=== PATIENT | female | born 1960 | race Caucasian/White ===

== ENCOUNTER 2018-01-11 21:42 | Inpatient (IN) | payer MEDICARE, MEDICAID, SELFPAY ==
[2018-01-11 21:43] VITALS: BP 136/85; PULSE 84; RESP 18; TEMP 37.1; O2SAT 97; BMI 34.3
--- NOTE | 2018-01-11 21:57 | CT_ITS ---
STUDY: CT ABDOMEN AND PELVIS WITH CONTRAST REASON FOR EXAM: Female, 57 years old. Left lower quadrant pain x2 months. History of diverticulitis RADIATION DOSAGE (If Supplied By Facility): CTDIvol = ( 15.22 ) mGy, DLP = ( 1014.83 ) mGycm TECHNIQUE: Transaxial images were obtained from the dome of the diaphragm to the symphysis pubis without oral contrast. 100 ml of Isovue 300 contrast was administered. Sagittal and coronal images were reconstructed. Individualized dose optimization techniques were used for this CT. COMPARISON: None. FINDINGS: The visualized lung bases are unremarkable. The visualized portions of the heart are within normal limits. Normal liver. Normal gallbladder and extrahepatic biliary system. Normal spleen. Normal pancreas. Normal bilateral adrenal glands. Normal right kidney. Normal left kidney. Normal visualized stomach. Normal small intestine. There is diverticulosis, with thickening of the colon wall, and pericolonic inflammation changes consistent with acute diverticulitis. The appendix is visualized and appears normal. Normal abdominal aorta. Normal inferior vena cava. Normal retroperitoneum. Normal urinary bladder. Normal uterus. There is a small umbilical hernia containing fat. Normal osseous structures. CT/Abdomen/Pelvis W IV Cont ONLY IMPRESSION: Acute sigmoid diverticulitis. No evidence of perforation or abscess. Electronically Signed: Arben Larios MD at 23:38 EST , Service support ,
--- NOTE | 2018-01-11 22:13 | ED.VISSUMM ---
- ER Visit Summary Date of Service: 01/11/18 Chief Complaint: Abdominal pain, bloating History of Present Illness: The patient is a 57 F with history of recurrent diverticulitis presents with abdominal pain and bloating. The patient states that she has had diverticulitis for about the past 2 months. She was initially seen here 2 weeks into November. She had a CT which showed uncomplicated sigmoid diverticulitis. The patient was placed on Cipro and Flagyl. She states she cannot tolerate the medication because of side effects of nausea. She followed with her primary care and was placed on Augmentin. She states she finished all of that, but she still had persistent pain. She denies any fevers or chills. She denies any other systemic symptoms. She just states that she has felt weak and has had persistent bloating and pain. She denies any history of prior abdominal surgery. She has had no blood with bowel movements. Physical Examination: Vital signs reviewed General: Well-nourished, well-developed Head: Normocephalic, atraumatic Eyes: Pupils equal and reactive, extraocular muscles intact Neck, supple, no lymphadenopathy Heart: Regular rate and rhythm Respiratory: No distress, clear bilaterally Abdomen: Soft, only tender in the left lower quadrant without rebound or guarding, nondistended, no peritoneal signs Back: Nontender Extremities: Nontender, no edema, no cords Skin: Normal color no rash Neuro: Alert and oriented, no focal or lateralizing deficits Test Results: Labs relatively unremarkable. CT shows recurrence of sigmoid diverticulitis. There is no abscess or perforation. Emergency Department Course and Treatment: Patient presents with recurrent pain. She has been through 2 courses of antibiotics and has had persistent symptoms. Her labs are unremarkable. The patient was hydrated, given analgesics, and antiemetics. She does have improvement of her symptoms. CT shows evidence of persistent diverticulitis. There is no abscess or perforation. As the patient has failed outpatient treatment, I do feel that she would benefit from admission. Patient was discussed with the hospitalist. She will be started on Zosyn. She will be admitted to [facility]. Treatment Plan: [] Disposition: Admission Impression: 1. Acute sigmoid diverticulitis with failed outpatient treatment This note was generated with [employer] software. It may contain incorrect words, spelling, and punctuation that were not noted in review of the chart prior to signing ED Disposition - Plan for ED Patient: Chief Complaint: Abd Pain Referrals: Kyle Monterroso MD [Primary Care Provider] -
[2018-01-11 22:16] LABS: Absolute Lymphocyte Count 3.06 X10^3/ul (0.83-4.51); Absolute Neutrophil Count 2.8 X10^3/uL (2.0-7.7); Basophil# 0.02 X10^3/uL; Basophil% 0.3 % (0-1); Eosinophils% 1.5 % (0-5); Hematocrit 37.9 % (37-47); Hemoglobin 12.3 g/dl (12.0-15.0); Lymphocyte # 3.06 X10^3/ul (4.0); Lymphocyte % 45.7 % (19-41); Mean Corp Hgb Conc 32.5 g/gl (32-36); Mean Corpuscular Hgb 29.1 pg (27.0-32.0); Mean Corpuscular Volume 89.6 fL (81-99); Mean Platelet Vol. 9.9 fl (6.2-12.0); Monocyte# 0.74 X10^3/uL; Monocyte% 11.1 % (0-10); Neutrophil # 2.76 X10^3/uL (2.7-7.7); Neutrophil % 41.3 % (47-70); Platelet Count 322 K/mm3 (150-450); RBC Distribution Width CV 13.6 % (11.6-14.6); RBC Distribution Width SD 44.5 fl (35.1-43.9); Red Blood Count 4.23 M/mm3 (4.2-5.4); White Blood Count 6.7 K/mm3 (4.4-11.0)
[2018-01-11] MEDS: 0.9% Normal Saline 1,000 ML 1000 ML IV (22:16)
[2018-01-11] MEDS: Ondansetron 4 MG/2 ML Vial IV (22:16)
[2018-01-11 22:18] LABS: POSITIVE COUNT NO; POSITIVE DIFFERENTIAL NO; POSITIVE MORPHOLOGY NO
[2018-01-11 22:31] LABS: AST(SGOT) 19 U/L (15-37); Alanine Aminotransfer ALT/SGPT 30 U/L (13-56); Albumin, Serum 3.7 g/dL (3.2-5.0); Alkaline Phosphatase 80 U/L (45-117); Anion Gap 9 (5-15); BUN 24 mg/dL (7-18); BUN/Creat Ratio 19.5 RATIO (10-20); Calcium,Total 9.1 mg/dL (8.5-10.1); Chloride 108 mmol/L (98-107); Creatinine, Serum 1.23 mg/dL (0.55-1.02); EST Glomerular Filtration Rate 47 mL/min (>60); Est Glom Filt Rate - Afr Amer 57 mL/min (>60); Estimated Creatinine Clearance 42.53 ml/min; Globulin 3.7 g/dL (2.2-4.2); Glucose 112 mg/dL (74-106); Potassium 3.6 mmol/L (3.5-5.1); Protein, Total 7.4 g/dL (6.4-8.2); Sodium Level 142 mmol/L (136-145)
[2018-01-11 22:32] VITALS: BP 131/76; PULSE 76; RESP 20; O2SAT 95
--- NOTE | 2018-01-11 23:47 | HP.PCM_ITS ---
Problem List (1) Diverticulitis Status: Acute (2) Hypothyroid Status: Acute (3) Depression Status: Acute (4) Lipidemia Status: Acute History of Present Illness Date of Admission: 01/11/18 Chief Complaint: Diverticulitis The patient is a 57 year old female w/ h/o diverticulitis, depression, hypothyroid and lipidemia admitted for diverticulitis. She had left lower quadrant abdominal pain x weeks to months. Pain started in October. She was evaluated in the ED and was given a 10 day course of cipro for diverticulitis. However pain still persisted. Her PCP gave her an additional 10 days of augmentin. Despite finishing both course of antibiotic, she still had persistent pain. The intensity and frequency of pain have increased during that time. Pain is sharp and constant. Pain would last for hours. Movement made it worse. Nothing made it better. She has no constipation or diarrhea. No nausea or vomiting. Past Medical History Allergies metronidazole [From Flagyl] Allergy (Verified 01/11/18 22:21) Nausea/Vom/Diarrhea esomeprazole [From Nexium] Adverse Reaction (Verified 01/11/18 22:21) Nausea oxybutynin [From Ditropan] Adverse Reaction (Verified 01/11/18 22:21) Nausea/Vom/Diarrhea oxycodone [From Percocet] Adverse Reaction (Verified 01/11/18 22:21) Nausea Home Medications: Ambulatory Orders Medication Instructions Recorded Aripiprazole [Abilify] 10 mg PO DAILY 10/01/16 Aspirin [Adult Low Dose Aspirin EC] 81 mg PO DAILY 10/01/16 Duloxetine Hcl [Cymbalta] 60 mg PO DAILY 10/01/16 Fenofibrate [Lofibra] 54 mg PO DAILY 10/01/16 Levothyroxine [Synthroid] 137 mcg PO DAILY 10/01/16 Rosuvastatin Calcium [Crestor] 40 mg PO QHS 10/01/16 Sumatriptan Succinate [Imitrex] 50 mg PO .X1 PRN 10/01/16 [place]-3 Fatty Acids [Fish Oil] 2,000 mg PO DAILY 11/21/16 BuPROPion [Wellbutrin] 150 mg PO DAILY 06/23/17 Benztropine Mesylate 1 mg PO BID 11/29/17 Pantoprazole Sodium [Protonix] 40 mg PO DAILY 11/29/17 Benztropine [Cogentin] 1 mg PO BID 01/11/18 Multivitamin/Iron/Folic Acid 1 each PO DAILY 01/11/18 [Centrum Adults Tablet] Ondansetron [Zofran Odt] 4 mg PO Q8H PRN PRN 01/11/18 Topiramate [Topamax] 25 mg PO BID 01/11/18 Smoking Status: Current every day smoker Alcohol: None Drugs: None - *Family History Maternal History Items: No pertinent history Review of Systems Constitutional: Denies: Chills, Fever, Weight Change HEENT: Denies: Head Aches, Sinus Congestion, Sinus Drainage Cardiovascular: Denies: Chest Pain, Palpitations Respiratory: Denies: Cough, Shortness of breath at rest, Sputum production Gastrointestinal: Reports: Abdominal Pain. Denies: Nausea, Vomiting Genitourinary: Denies: Dysuria Musculoskeletal: Denies: Joint Pain, Joint Tenderness Skin: Denies: Rash, Wounds Neurological: Denies: Numbness, Tingling, Focal weakness Psychiatric: Denies: Anxiety, Depression, Homicidal Ideations, Suicidal Ideations Hematologic/ Lymphatic: Denies: Easy Bruising, Easy Bleeding VTE Information - Inpt Only VTE Present on Admission: No VTE Mechan Device Prophylaxis: SCD's VTE Pharm Prophylaxis ordered?: Yes Patient Problems: Active and Suspected Problems Diverticulitis (Acute) Hypothyroid (Acute) Depression (Acute) Lipidemia (Acute) - Physical Exam General: Alert, Oriented x3, Cooperative HEENT: Atraumatic, PERRLA, EOMI, Normocephalic Neck: Supple, No JVD, Negative Carotid Bruits Lungs: Clear to auscultation, Normal air movement Cardiovascular: Regular rate, No murmurs Abdomen: Bowel Sounds Present, Soft, Non-Distended, Tender Extremities: No edema, Capillary Refill Less than 3 Seconds Skin: No rashes, No breakdown Musculoskeletal: No Tenderness to Palpation of Joints or Extremities Neurological: Cranial nerves II-XII grossly intact Psych/Mental Status: Normal Affect, Appropriate Vital Signs Temp Pulse Resp BP Pulse Ox 98.7 F 76 20 H 131/76 H 95 01/11/18 21:43 01/11/18 22:32 01/11/18 22:32 01/11/18 22:32 01/11/18 22:32 Oxygen Delivery Method Room Air Weight: 90.7 kg Body Mass Index (BMI) 34.3 Laboratory Tests Past 24 Hrs 01/11/18 01/11/18 22:10 22:10 WBC 6.7 RBC 4.23 Hgb 12.3 Hct 37.9 MCV 89.6 MCH 29.1 MCHC 32.5 RDW 13.6 RDW Differential 44.5 H Plt Count 322 MPV 9.9 Immature Gran % (Auto) 0.100 Neut % (Auto) 41.3 L Lymph % (Auto) 45.7 H [place] % (Auto) 11.1 H Eos % (Auto) 1.5 Baso % (Auto) 0.3 Absolute Neuts (auto) 2.8 Absolute Lymphs (auto) 3.06 Total Counted Not Reportable Sodium 142 Potassium 3.6 Chloride 108 H Carbon Dioxide 25.0 Anion Gap 9 BUN 24 H Creatinine 1.23 H Estim Creat Clear Calc 42.53 Est GFR (MDRD) Af Amer 57 L Est GFR (MDRD) Non-Af 47 L BUN/Creatinine Ratio 19.5 Glucose 112 H Calcium 9.1 Total Bilirubin 0.30 AST 19 ALT 30 Alkaline Phosphatase 80 Total Protein 7.4 Albumin 3.7 Globulin 3.7 Albumin/Globulin Ratio 1.0 Assessment/Plan Active and Suspected Problems Diverticulitis (Acute) Hypothyroid (Acute) Depression (Acute) Lipidemia (Acute) 57 year old female w/ h/o diverticulitis, depression, hypothyroid and lipidemia admitted for diverticulitis. 1) Diverticulitis: CT disclosed Acute sigmoid diverticulitis. No evidence of perforation or abscess. Will start zosyn given failed multiple outpt antibiotic. Monitor. 2) Depression: Resume home meds. No SI/HI. 3) Chronic issues: Hypothyroid / lipidemia: Resume home meds. 4) Prophylaxis: SCD / heparin.
[2018-01-12 01:14] LABS: Bacteria 0 SEEN /hpf (None Seen); Mucous, Urine 0 SEEN /hpf (<or=2+); Red Blood Cells-Urine 0 SEEN /hpf (0-5); Squamous Epithelial Cells - UA 0 SEEN /hpf (5-10); White Blood Cells 0 SEEN /hpf (0-5)
[2018-01-12 01:22] LABS: Color, Urine Yellow (Yellow); Glucose, Dipstick Normal (Normal); Ketone-Dipstick Negative (Negative); Leukocyte Esterase-Dipstick 25 /ul (Negative); Nitrite-Dipstick Negative (Negative); Occult Blood-Urine Negative /ul (Negative); Protein-Dipstick Negative (Negative); Urine Bilirubin Dipstick Negative (Negative); Urine Clarity Clear (Clear); Urine Urobilinogen Normal (Normal)
[2018-01-12 01:35] VITALS: BP 113/62; PULSE 87; RESP 18; O2SAT 97
[2018-01-12 02:33] VITALS: BMI 34.4
[2018-01-12 02:36] VITALS: BP 115/69; PULSE 72; RESP 18; TEMP 36.6; O2SAT 99
[2018-01-12 02:59] VITALS: BMI 34.4
[2018-01-12] MEDS: Ondansetron ODT 4 MG Tablet PO (03:09)
[2018-01-12] MEDS: Rizatriptan Benzoate 10 MG Tablet PO (03:25)
[2018-01-12] MEDS: Levothyroxine 137 MCG Tablet PO (05:54)
[2018-01-12] MEDS: Piperacil/Tazobactam 3.375 GM/50 ML ML IV ×3 (05:54→21:19)
[2018-01-12 06:23] LABS: Absolute Lymphocyte Count 2.13 X10^3/ul (0.83-4.51); Absolute Neutrophil Count 2.7 X10^3/uL (2.0-7.7); Basophil# 0.02 X10^3/uL; Basophil% 0.4 % (0-1); Eosinophil# 0.14 X10^3/uL; Eosinophils% 2.5 % (0-5); Hematocrit 39.7 % (37-47); Hemoglobin 12.8 g/dl (12.0-15.0); Lymphocyte # 2.13 X10^3/ul (4.0); Lymphocyte % 38.3 % (19-41); Mean Corp Hgb Conc 32.2 g/gl (32-36); Mean Corpuscular Hgb 29.3 pg (27.0-32.0); Mean Corpuscular Volume 90.8 fL (81-99); Mean Platelet Vol. 10.2 fl (6.2-12.0); Monocyte% 10.8 % (0-10); Neutrophil # 2.66 X10^3/uL (2.7-7.7); Neutrophil % 47.8 % (47-70); Platelet Count 318 K/mm3 (150-450); RBC Distribution Width CV 13.8 % (11.6-14.6); RBC Distribution Width SD 44.7 fl (35.1-43.9); Red Blood Count 4.37 M/mm3 (4.2-5.4); White Blood Count 5.6 K/mm3 (4.4-11.0)
[2018-01-12 06:29] LABS: POSITIVE COUNT NO; POSITIVE DIFFERENTIAL NO; POSITIVE MORPHOLOGY NO
[2018-01-12 06:34] LABS: Anion Gap 8 (5-15); BUN 19 mg/dL (7-18); BUN/Creat Ratio 17.9 RATIO (10-20); Calcium,Total 8.4 mg/dL (8.5-10.1); Chloride 107 mmol/L (98-107); Creatinine, Serum 1.06 mg/dL (0.55-1.02); EST Glomerular Filtration Rate 56 mL/min (>60); Est Glom Filt Rate - Afr Amer 68 mL/min (>60); Estimated Creatinine Clearance 49.35 ml/min; Glucose 112 mg/dL (74-106); Potassium 3.8 mmol/L (3.5-5.1); Sodium Level 141 mmol/L (136-145)
[2018-01-12 08:29] VITALS: BP 94/70; PULSE 73; RESP 16; TEMP 36.7; O2SAT 94
[2018-01-12] MEDS: Multivitamins,Ther W-Minerals Tablet 1 TABLET PO (08:47)
[2018-01-12] MEDS: ARIPiprazole 10 MG Tablet PO (08:47)
[2018-01-12] MEDS: Aspirin E.C. 81 MG Tablet PO (08:47)
[2018-01-12] MEDS: Benztropine 2 MG Tablet 1 MG PO ×2 (08:48→21:19)
[2018-01-12] MEDS: DULoxetine Hcl 60 MG Capsule PO (08:49)
[2018-01-12] MEDS: Omega-3 Acid Ethyl Esters 1 GM Capsule 2 GM PO (08:49)
[2018-01-12] MEDS: Pantoprazole Sodium 40 MG Tablet PO (08:50)
[2018-01-12] MEDS: Fenofibrate 48 MG Tablet PO (08:50)
--- NOTE | 2018-01-12 08:54 | PCM.PN.HOSP ---
Patient Problems: Active and Suspected Problems Diverticulitis (Acute) Hypothyroid (Acute) Depression (Acute) Lipidemia (Acute) Subjective: Patient is a 57-year-old lady with past medical history significant for recurrent diverticulitis presented with abdominal pain imaging studies demonstrated Acute sigmoid diverticulitis. No evidence of perforation or abscess. Objective: GENERAL: cooperative HEENT: Clear conjunctiva, NECK; supple, normal thyroid, CHEST: Clear to auscultation bilaterally, HEART: Regular S1 S2, no audible murmurs ABDOMEN: soft, LLQ tender, normoactive bowel sounds, RECTAL: deferred EXTREMITIES: No edema, no clubbing, no cyanosis. 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 SKIN: No Rash Vitals/I&O's: Vital Signs Temp Pulse Resp BP Pulse Ox 98.0 F 73 16 94/70 94 01/12/18 08:29 01/12/18 08:29 01/12/18 08:29 01/12/18 08:29 01/12/18 08:29 Oxygen Delivery Method Room Air Weight: 91.4 kg Body Mass Index (BMI) 34.4 Intake and Output for Last 24 Hours 01/10/18 01/11/18 01/12/18 23:59 23:59 23:59 Intake Total 200 / 200 Balance 200 / 200 Laboratory Results 01/12/18 01:06: Urine Color Yellow, Urine Clarity Clear, Urine pH 7.0, Ur Specific [place] 1.010, Urine Protein Negative, Urine Glucose (UA) Normal, Urine Ketones Negative, Urine Occult Blood Negative, Urine Nitrite Negative, Urine Bilirubin Negative, Urine Urobilinogen Normal, Ur Leukocyte Esterase 25 H, Urine RBC 0 SEEN, Urine WBC 0 SEEN, Ur Squamous Epith Cells 0 SEEN, Urine Bacteria 0 SEEN, Urine Mucus 0 SEEN 01/12/18 05:54: WBC 5.6, RBC 4.37, Hgb 12.8, Hct 39.7, MCV 90.8, MCH 29.3, MCHC 32.2, RDW 13.8, RDW Differential 44.7 H, Plt Count 318, MPV 10.2, Immature Gran % (Auto) 0.200, Neut % (Auto) 47.8, Lymph % (Auto) 38.3, [place] % (Auto) 10.8 H, Eos % (Auto) 2.5, Baso % (Auto) 0.4, Absolute Neuts (auto) 2.7, Absolute Lymphs (auto) 2.13, Total Counted Not Reportable 01/12/18 05:54: Sodium 141, Potassium 3.8, Chloride 107, Carbon Dioxide 26.0, Anion Gap 8, BUN 19 H, Creatinine 1.06 H, Estim Creat Clear Calc 49.35, Est GFR (MDRD) Af Amer 68, Est GFR (MDRD) Non-Af 56 L, BUN/Creatinine Ratio 17.9, Glucose 112 H, Calcium 8.4 L Current Medications Aripiprazole (Abilify) 10 mg PO DAILY [facility] Last Admin: 01/12/18 08:47 Dose: 10 mg [facility] Last Admin: 01/12/18 08:47 Dose: 81 mg Atorvastatin Calcium (Lipitor) 80 mg PO QHS [facility] Benztropine Mesylate (Cogentin) 1 mg PO BID [facility] Last Admin: 01/12/18 08:48 Dose: 1 mg Bupropion HCl (Wellbutrin Xl) 150 mg PO DAILY [facility] Last Admin: 01/12/18 08:50 Dose: 150 mg Duloxetine HCl (Cymbalta) 60 mg PO DAILY [facility] Last Admin: 01/12/18 08:49 Dose: 60 mg Fenofibrate (Tricor) 48 mg PO DAILY [facility] Last Admin: 01/12/18 08:50 Dose: 48 mg Heparin Sodium (Porcine) (Heparin Na) 5,000 unit SC Q8 [facility] Last Admin: 01/12/18 05:55 Dose: 5,000 u Piperacillin Sod/Tazobactam Sod (Zosyn) 3.375 gm in 50 mls @ 12.5 mls/hr IV Q8 [facility] Last Admin: 01/12/18 05:54 Dose: 12.5 mls/hr Levothyroxine Sodium (Synthroid) 137 mcg PO DAILY@0600 [facility] Last Admin: 01/12/18 05:54 Dose: 137 mcg Magnesium Hydroxide (Milk Of Magnesia) 30 ml PO DAILY PRN PRN PRN Reason: Constipation Multivitamins/Minerals (Multivitamin With Minerals) [facility] Last Admin: 01/12/18 08:47 Dose: 1 tablet [id number] Ethyl Esters (Lovaza) 2 gm PO DAILY [facility] Last Admin: 01/12/18 08:49 Dose: 2 gm Ondansetron HCl (Zofran Odt) 4 mg PO Q8H PRN PRN PRN Reason: NAUSEA Last Admin: 01/12/18 03:09 Dose: 4 mg Pantoprazole Sodium (Protonix) 40 mg PO DAILY [facility] Last Admin: 01/12/18 08:50 Dose: 40 mg Rizatriptan Benzoate (Maxalt) 10 mg PO .X1 PRN PRN Last Admin: 01/12/18 03:25 Dose: 10 mg Sodium Chloride () 5 - 30 ml IV UD PRN PRN Reason: SALINE FLUSH Topiramate (Topamax) 25 mg PO QHS [facility] Stop: 01/18/18 22:01 Topiramate (Topamax) 25 mg PO BID [facility] Assessment/Plan Active and Suspected Problems Diverticulitis (Acute) Hypothyroid (Acute) Depression (Acute) Lipidemia (Acute) Patient is a 57-year-old lady with past medical history significant for recurrent diverticulitis presented with abdominal pain imaging studies demonstrated Acute sigmoid diverticulitis. No evidence of perforation or abscess. 1. Acute diverticulitis admitted to regular nursing floor. Patient apparently did fail outpatient antibiotic therapy was started on Zosyn clear liquid which is been advanced as tolerated in addition to pain medications 2. Obesity with BMI of 34.4 weight loss advised 3. Depression patient is on Cymbalta as well as Wellbutrin did continue 4. Dyslipidemia-patient is on statin therapy, continued at home dose 5. Hypothyroidism-patient is on levothyroxine home dose continued 6. DVT prophylaxis SC heparin Clinical Impression(s) from Imaging Studies Abdomen/Pelvis CT 01/11/18 21:57 IMPRESSION: Acute sigmoid diverticulitis. No evidence of perforation or abscess. Electronically Signed: Arben Larios MD at 23:38 EST , Service support , Code Visit Inpatient E&M: [id number] [facility] Hosp L3
--- NOTE | 2018-01-12 11:05 | CASEMGMT ---
RN AYDEN Face to Face with patient for initial transition planning/care coordination assessment. RN CM introduced self and role at [facility]. Patient lying in bed, alert and oriented. Patient willing to participate in assessment and is able to answer all questions appropriately. Care providers, pharmacy, and demographics verified. See link attached. Patient wishes to discharge home, denies need for home health at this time. Patient states she has no further needs or concerns at this time. CM to follow for discharge planning needs that may arise. Disposition Plan: Patient to discharge home with family support and follow-up plans in place.
[2018-01-12 14:06] VITALS: BP 103/64; PULSE 67; RESP 16; TEMP 36.7; O2SAT 97
[2018-01-12 20:00] VITALS: BP 111/75; PULSE 61; RESP 16; TEMP 36.7; O2SAT 98
[2018-01-12] MEDS: Atorvastatin Calcium 80 MG Tablet PO (21:20)
[2018-01-12] MEDS: Topiramate 25 MG Tablet PO (21:21)
[2018-01-12] MEDS: 0.9% NaCl Peripheral Flush Adult/Peds IV (23:50)
[2018-01-13 02:00] VITALS: BP 111/57; PULSE 66; RESP 16; TEMP 36.4; O2SAT 96
[2018-01-13] MEDS: Piperacil/Tazobactam 3.375 GM/50 ML ML IV ×3 (05:24→21:34)
[2018-01-13] MEDS: Levothyroxine 137 MCG Tablet PO (05:25)
[2018-01-13 07:53] LABS: Anion Gap 8 (5-15); BUN 26 mg/dL (7-18); BUN/Creat Ratio 26.9 RATIO (10-20); Calcium,Total 8.6 mg/dL (8.5-10.1); Chloride 106 mmol/L (98-107); Creatinine, Serum 0.96 mg/dL (0.55-1.02); EST Glomerular Filtration Rate 63 mL/min (>60); Est Glom Filt Rate - Afr Amer 76 mL/min (>60); Estimated Creatinine Clearance 54.49 ml/min; Glucose 103 mg/dL (74-106); Magnesium 2.3 mg/dL (1.6-2.6); Potassium 3.9 mmol/L (3.5-5.1); Sodium Level 139 mmol/L (136-145)
[2018-01-13] MEDS: Fenofibrate 48 MG Tablet PO (08:19)
[2018-01-13] MEDS: Omega-3 Acid Ethyl Esters 1 GM Capsule 2 GM PO (08:19)
[2018-01-13] MEDS: Aspirin E.C. 81 MG Tablet PO (08:19)
[2018-01-13] MEDS: Pantoprazole Sodium 40 MG Tablet PO (08:19)
[2018-01-13] MEDS: DULoxetine Hcl 60 MG Capsule PO (08:20)
[2018-01-13] MEDS: ARIPiprazole 10 MG Tablet PO (08:20)
[2018-01-13] MEDS: Benztropine 2 MG Tablet 1 MG PO ×2 (08:20→21:35)
[2018-01-13] MEDS: Multivitamins,Ther W-Minerals Tablet 1 TABLET PO (08:20)
[2018-01-13 08:25] VITALS: BP 97/56; PULSE 72; RESP 18; TEMP 36.6; O2SAT 93
--- NOTE | 2018-01-13 10:16 | PCM.PN.HOSP ---
Patient Problems: Active and Suspected Problems Diverticulitis (Acute) Hypothyroid (Acute) Depression (Acute) Lipidemia (Acute) Subjective: Patient seen, complains of abdominal pain being more diffuse now. Also complains of some bloating discussed with patient scaling back her diet to clear liquids only. She had requested for the day prior. Also ordered KUB Objective: GENERAL: cooperative HEENT: Clear conjunctiva, NECK; supple, normal thyroid, CHEST: Clear to auscultation bilaterally, HEART: Regular S1 S2, no audible murmurs ABDOMEN: soft, LLQ tender, normoactive bowel sounds, RECTAL: deferred EXTREMITIES: No edema, no clubbing, no cyanosis. 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 SKIN: No Rash Vitals/I&O's: Vital Signs Temp Pulse Resp BP Pulse Ox 97.9 F 72 18 97/56 L 93 01/13/18 08:25 01/13/18 08:25 01/13/18 08:25 01/13/18 08:25 01/13/18 08:25 Oxygen Delivery Method Room Air Weight: 91.4 kg Body Mass Index (BMI) 34.4 Intake and Output for Last 24 Hours 01/11/18 01/12/18 01/13/18 23:59 23:59 23:59 Intake Total 200 / 200 1361 / 1361 Balance 200 / 200 1361 / 1361 Laboratory Results 01/13/18 06:43: Sodium 139, Potassium 3.9, Chloride 106, Carbon Dioxide 25.0, Anion Gap 8, BUN 26 H, Creatinine 0.96, Estim Creat Clear Calc 54.49, Est GFR (MDRD) Af Amer 76, Est GFR (MDRD) Non-Af 63, BUN/Creatinine Ratio 26.9 H, Glucose 103, Calcium 8.6, Magnesium 2.3 Current Medications Aripiprazole (Abilify) 10 mg PO DAILY [facility] Last Admin: 01/13/18 08:20 Dose: 10 mg [facility] Last Admin: 01/13/18 08:19 Dose: 81 mg Atorvastatin Calcium (Lipitor) 80 mg PO QHS [facility] Last Admin: 01/12/18 21:20 Dose: 80 mg Benztropine Mesylate (Cogentin) 1 mg PO BID [facility] Last Admin: 01/13/18 08:20 Dose: 1 mg Bupropion HCl (Wellbutrin Xl) 150 mg PO DAILY [facility] Last Admin: 01/13/18 08:19 Dose: 150 mg Duloxetine HCl (Cymbalta) 60 mg PO DAILY [facility] Last Admin: 01/13/18 08:20 Dose: 60 mg Fenofibrate (Tricor) 48 mg PO DAILY [facility] Last Admin: 01/13/18 08:19 Dose: 48 mg Heparin Sodium (Porcine) (Heparin Na) 5,000 unit SC Q8 [facility] Last Admin: 01/13/18 05:24 Dose: 1 ml Piperacillin Sod/Tazobactam Sod (Zosyn) 3.375 gm in 50 mls @ 12.5 mls/hr IV Q8 [facility] Last Admin: 01/13/18 05:24 Dose: 12.5 mls/hr Levothyroxine Sodium (Synthroid) 137 mcg PO DAILY@0600 [facility] Last Admin: 01/13/18 05:25 Dose: 137 mcg Magnesium Hydroxide (Milk Of Magnesia) 30 ml PO DAILY PRN PRN PRN Reason: Constipation Morphine Sulfate (Morphine) 2 mg IV Q2H PRN PRN PRN Reason: SEVERE PAIN (6-10/10) Last Admin: 01/13/18 08:25 Dose: 2 mg Multivitamins/Minerals (Multivitamin With Minerals) [facility] Last Admin: 01/13/18 08:20 Dose: 1 tablet [id number] Ethyl Esters (Lovaza) 2 gm PO DAILY [facility] Last Admin: 01/13/18 08:19 Dose: 2 gm Ondansetron HCl (Zofran Odt) 4 mg PO Q8H PRN PRN PRN Reason: NAUSEA Last Admin: 01/12/18 03:09 Dose: 4 mg Pantoprazole Sodium (Protonix) 40 mg PO DAILY [facility] Last Admin: 01/13/18 08:19 Dose: 40 mg Rizatriptan Benzoate (Maxalt) 10 mg PO .X1 PRN PRN Last Admin: 01/12/18 03:25 Dose: 10 mg Sodium Chloride () 5 - 30 ml IV UD PRN PRN Reason: SALINE FLUSH Last Admin: 01/12/18 23:50 Dose: 10 ml Topiramate (Topamax) 25 mg PO QHS [facility] Stop: 01/18/18 22:01 Last Admin: 01/12/18 21:21 Dose: 25 mg Topiramate (Topamax) 25 mg PO BID [facility] Assessment/Plan Active and Suspected Problems Diverticulitis (Acute) Hypothyroid (Acute) Depression (Acute) Lipidemia (Acute) Patient is a 57-year-old lady with past medical history significant for recurrent diverticulitis presented with abdominal pain imaging studies demonstrated Acute sigmoid diverticulitis. No evidence of perforation or abscess. 1. Acute diverticulitis admitted to regular nursing floor. Patient apparently did fail outpatient antibiotic therapy was started on Zosyn clear liquid which is been advanced as tolerated in addition to pain medications with patient having developed bloating on the morning of 01/13/2018 portable KUB was ordered for subsequent evaluation. Also did have discussion with patient regarding the recurrent nature of his symptoms and the need to undergo outpatient colonoscopy 4 weeks after resolution of his symptoms. 2. Obesity with BMI of 34.4 weight loss advised 3. Depression patient is on Cymbalta as well as Wellbutrin did continue 4. Dyslipidemia-patient is on statin therapy, continued at home dose 5. Hypothyroidism-patient is on levothyroxine home dose continued 6. DVT prophylaxis SC heparin Clinical Impression(s) from Imaging Studies Abdomen/Pelvis CT 01/11/18 21:57 IMPRESSION: Acute sigmoid diverticulitis. No evidence of perforation or abscess. Electronically Signed: Arben Larios MD at 23:38 EST , Service support , Code Visit Inpatient E&M: [id number] [facility] Hosp L3
--- NOTE | 2018-01-13 11:02 | RAD_ITS ---
STUDY: X-RAY - ABDOMEN/PELVIS REASON FOR EXAM: Female, 57 years old. Abdominal distention and pain. History of diverticulitis. TECHNIQUE: AP supine and upright views of the abdomen and pelvis. COMPARISON: Comparison is made with prior CT scan and abdomen dated January 11, 2018. FINDINGS: There is a moderate amount of colonic fecal material. There is no demonstrated free abdominal air. The visualized liver, spleen and kidneys are grossly normal in size and morphology. There are calcified phleboliths in the pelvis. Normal visualized osseous structures. RAD/Abd Decub and/or Erect(Portabl IMPRESSION: Moderate amount of fecal material is seen in the colon. Electronically Signed: Elijah Gill MD at 14:12 EST Tel [phone], Service support ,
[2018-01-13] MEDS: 0.9% NaCl Peripheral Flush Adult/Peds IV (14:01)
[2018-01-13] MEDS: Magnesium Hydroxide 30 ML UDC PO (14:02)
[2018-01-13 14:45] VITALS: BP 109/70; PULSE 69; RESP 18; TEMP 36.7; O2SAT 95
[2018-01-13] MEDS: Bisacodyl 10 MG Suppository RECTAL (18:12)
[2018-01-13 19:51] VITALS: BP 103/66; PULSE 67; RESP 18; TEMP 36.7; O2SAT 97
[2018-01-13 19:57] VITALS: PULSE 67; RESP 18; O2SAT 97
[2018-01-13] MEDS: Ondansetron ODT 4 MG Tablet PO (20:06)
[2018-01-13] MEDS: Atorvastatin Calcium 80 MG Tablet PO (21:35)
[2018-01-13] MEDS: Topiramate 25 MG Tablet PO (21:36)
[2018-01-14 02:15] VITALS: BP 101/58; PULSE 80; RESP 18; TEMP 36.6; O2SAT 96
[2018-01-14] MEDS: Magnesium Hydroxide 30 ML UDC PO (02:19)
[2018-01-14] MEDS: Piperacil/Tazobactam 3.375 GM/50 ML ML IV (06:22)
[2018-01-14] MEDS: Levothyroxine 137 MCG Tablet PO (06:22)
[2018-01-14 07:14] LABS: Anion Gap 7 (5-15); BUN 18 mg/dL (7-18); BUN/Creat Ratio 19.9 RATIO (10-20); Calcium,Total 8.9 mg/dL (8.5-10.1); Chloride 106 mmol/L (98-107); EST Glomerular Filtration Rate 68 mL/min (>60); Est Glom Filt Rate - Afr Amer 82 mL/min (>60); Estimated Creatinine Clearance 58.12 ml/min; Glucose 104 mg/dL (74-106); Potassium 3.9 mmol/L (3.5-5.1); Sodium Level 140 mmol/L (136-145)
[2018-01-14 08:02] VITALS: BP 102/65; PULSE 67; RESP 18; TEMP 36.6; O2SAT 98
[2018-01-14] MEDS: Aspirin E.C. 81 MG Tablet PO (08:17)
[2018-01-14] MEDS: ARIPiprazole 10 MG Tablet PO (08:17)
[2018-01-14] MEDS: Fenofibrate 48 MG Tablet PO (08:17)
[2018-01-14] MEDS: Multivitamins,Ther W-Minerals Tablet 1 TABLET PO (08:17)
[2018-01-14] MEDS: Pantoprazole Sodium 40 MG Tablet PO (08:17)
[2018-01-14] MEDS: Omega-3 Acid Ethyl Esters 1 GM Capsule 2 GM PO (08:17)
[2018-01-14] MEDS: DULoxetine Hcl 60 MG Capsule PO (08:17)
[2018-01-14] MEDS: Benztropine 2 MG Tablet 1 MG PO (08:18)
--- NOTE | 2018-01-14 09:34 | PCM.DC ---
- Discharge Diagnoses Current Active Problems: Current Active and Chronic Problems Diverticulitis (Acute) Hypothyroid (Acute) Depression (Acute) Lipidemia (Acute) You will use the following diet at home:: No restrictions Allergies/Adverse Reactions: Allergies metronidazole [From Flagyl] Allergy (Verified 01/11/18 22:21) Nausea/Vom/Diarrhea esomeprazole [From Nexium] Adverse Reaction (Verified 01/11/18 22:21) Nausea oxybutynin [From Ditropan] Adverse Reaction (Verified 01/11/18 22:21) Nausea/Vom/Diarrhea oxycodone [From Percocet] Adverse Reaction (Verified 01/11/18 22:21) Nausea Medications to take at Discharge Aripiprazole [Abilify] 10 mg PO DAILY 10/01/16 Aspirin [Adult Low Dose Aspirin EC] 81 mg PO DAILY 10/01/16 Duloxetine Hcl [Cymbalta] 60 mg PO DAILY 10/01/16 Fenofibrate [Lofibra] 54 mg PO DAILY 10/01/16 Levothyroxine [Synthroid] 137 mcg PO DAILY 10/01/16 Rosuvastatin Calcium [Crestor] 40 mg PO QHS 10/01/16 Sumatriptan Succinate [Imitrex] 50 mg PO .X1 PRN 10/01/16 [place]-3 Fatty Acids [Fish Oil] 2,000 mg PO DAILY 11/21/16 BuPROPion [Wellbutrin] 150 mg PO DAILY 06/23/17 Benztropine Mesylate 1 mg PO BID 11/29/17 Pantoprazole Sodium [Protonix] 40 mg PO DAILY 11/29/17 Benztropine [Cogentin] 1 mg PO BID 01/11/18 Multivitamin/Iron/Folic Acid [Centrum Adults Tablet] 1 each PO DAILY 01/11/18 Ondansetron [Zofran Odt] 4 mg PO Q8H PRN PRN 01/11/18 Topiramate [Topamax] 25 mg PO BID 01/11/18 Lactobacillus Acidophilus [Acidophilus] 1 tab PO DAILY #30 tab 01/14/18 Sennosides/Docusate Sodium [Colace 2-in-1 Tablet] 1 ea PO DAILY #1 tab 01/14/18 Smz/Tmp Ds [Bactrim Ds] 1 tab PO BID #10 tab 01/14/18 The following prescriptions were given: Lactobacillus Acidophilus [Acidophilus] 1 tab PO DAILY #30 tab Sennosides/Docusate Sodium [Colace 2-in-1 Tablet] 1 ea PO DAILY #1 tab Smz/Tmp Ds [Bactrim Ds] 1 tab PO BID #10 tab Primary Care Physician: Kyle Monterroso MD [Primary Care Provider] - Please follow up with your Primary Care Physician in: in 5-7 days Proposed Discharge Date: 01/14/18
--- NOTE | 2018-01-14 09:36 | PCM.DC.SUM ---
Discharge Date and Diagnosis - Problem List Patient Problems: Active and Suspected Problems Diverticulitis (Acute) Hypothyroid (Acute) Depression (Acute) Lipidemia (Acute) Date of Admission: 01/11/18 Date of Discharge: 01/14/18 - Primary Discharge Diagnosis Active and Suspected Problems Diverticulitis (Acute) Hypothyroid (Acute) Depression (Acute) Lipidemia (Acute) Hospital Course and Treatment Imaging Results: Clinical Impression(s) from Imaging Studies Abdomen/Pelvis CT 01/11/18 21:57 IMPRESSION: Acute sigmoid diverticulitis. No evidence of perforation or abscess. Electronically Signed: Arben Larios MD at 23:38 EST , Service support , Abdomen X-Ray 01/13/18 11:02 IMPRESSION: Moderate amount of fecal material is seen in the colon. Electronically Signed: Elijah Gill MD at 14:12 EST Tel [phone], Service support , Summary of Care Provided: Patient is a 57-year-old lady with past medical history significant for recurrent diverticulitis presented with abdominal pain imaging studies demonstrated Acute sigmoid diverticulitis. No evidence of perforation or abscess. 1. Acute diverticulitis admitted to regular nursing floor. Patient apparently did fail outpatient antibiotic therapy was started on Zosyn clear liquid which is been advanced as tolerated in addition to pain medications with patient having developed bloating on the morning of 01/13/2018 portable KUB was ordered for subsequent evaluation. Also did have discussion with patient regarding the recurrent nature of his symptoms and the need to undergo outpatient colonoscopy 4 weeks after resolution of his symptoms. 2. Obesity with BMI of 34.4 weight loss advised 3. Depression patient is on Cymbalta as well as Wellbutrin did continue 4. Dyslipidemia-patient is on statin therapy, continued at home dose 5. Hypothyroidism-patient is on levothyroxine home dose continued 6. DVT prophylaxis SC heparin Discharge Diet: No Restrictions Discharge Activity: Return to Normal Activity Home Medications: Medications to take at Discharge Aripiprazole [Abilify] 10 mg PO DAILY 10/01/16 Aspirin [Adult Low Dose Aspirin EC] 81 mg PO DAILY 10/01/16 Duloxetine Hcl [Cymbalta] 60 mg PO DAILY 10/01/16 Fenofibrate [Lofibra] 54 mg PO DAILY 10/01/16 Levothyroxine [Synthroid] 137 mcg PO DAILY 10/01/16 Rosuvastatin Calcium [Crestor] 40 mg PO QHS 10/01/16 Sumatriptan Succinate [Imitrex] 50 mg PO .X1 PRN 10/01/16 [place]-3 Fatty Acids [Fish Oil] 2,000 mg PO DAILY 11/21/16 BuPROPion [Wellbutrin] 150 mg PO DAILY 06/23/17 Benztropine Mesylate 1 mg PO BID 11/29/17 Pantoprazole Sodium [Protonix] 40 mg PO DAILY 11/29/17 Benztropine [Cogentin] 1 mg PO BID 01/11/18 Multivitamin/Iron/Folic Acid [Centrum Adults Tablet] 1 each PO DAILY 01/11/18 Ondansetron [Zofran Odt] 4 mg PO Q8H PRN PRN 01/11/18 Topiramate [Topamax] 25 mg PO BID 01/11/18 Lactobacillus Acidophilus [Acidophilus] 1 tab PO DAILY #30 tab 01/14/18 Sennosides/Docusate Sodium [Colace 2-in-1 Tablet] 1 ea PO DAILY #1 tab 01/14/18 Smz/Tmp Ds [Bactrim Ds] 1 tab PO BID #10 tab 01/14/18 Following Prescrptions Were Given to Patient: Lactobacillus Acidophilus [Acidophilus] 1 tab PO DAILY #30 tab Sennosides/Docusate Sodium [Colace 2-in-1 Tablet] 1 ea PO DAILY #1 tab Smz/Tmp Ds [Bactrim Ds] 1 tab PO BID #10 tab Primary Care Physician: Kyle Monterroso MD [Primary Care Provider] - Please follow up with your Primary Care Physician in: in 5-7 days Disposition: Home Minutes spent on discharge:: 35 Patient Condition:: Stable Meaningful Use Info Meaningful Use Diagnoses (Choose all that apply): None applicable Code Visit Inpatient E&M: 37842 Disch Hosp
[2018-01-14] MEDS: Magnesium Citrate 300 ML PO (10:03)
[2018-01-14 13:07] VITALS: BP 125/77; PULSE 70; RESP 18; TEMP 37.1; O2SAT 92
== END 2018-01-14 14:10 | disposition home or self-care (01) | DRG 392 ==
LOC: ED 22:15 → MS3 01-12 00:57
PROVIDERS: Admitting Provider Internal Medicine; Emergency Provider Emergency Medicine; Family Provider Family Medicine; PCP Family Medicine; Visit Provider Internal Medicine
DX: K57.32 Diverticulitis of large intestine without perforation or abscess without bleeding (principal); E03.9 Hypothyroidism, unspecified; F17.200 Nicotine dependence, unspecified, uncomplicated; F32.9 Major depressive disorder, single episode, unspecified; Z68.34 Body mass index [BMI] 34.0-34.9, adult; E66.9 Obesity, unspecified; E78.5 Hyperlipidemia, unspecified; Z79.899 Other long term (current) drug therapy
CPT/HCPCS: 36415; 74019; 74177; 80048; 80053; 81001; 83735; 85025; 99284; 99406; J7030; Q9967; A4216; J2405

== ENCOUNTER 2018-03-11 12:39 | Emergency (ER) | payer MEDICARE, MEDICAID, SELFPAY ==
[2018-03-11 12:40] VITALS: BP 142/78; PULSE 86; RESP 16; TEMP 37.1; O2SAT 98; BMI 34.0
--- NOTE | 2018-03-11 13:00 | CT_ITS ---
STUDY: CT ABDOMEN AND PELVIS WITHOUT CONTRAST REASON FOR EXAM: Female, 57 years old. Right lower quadrant pain since October. History of diverticulitis. No surgery. RADIATION DOSAGE (If Supplied By Facility): CTDIvol = ( 14.29 ) mGy, DLP = ( 629.51 ) mGycm TECHNIQUE: Transaxial images were obtained from the dome of the diaphragm to the symphysis pubis without oral contrast, and without intravenous contrast. Sagittal and coronal images were reconstructed. Individualized dose optimization techniques were used for this CT. COMPARISON: None. FINDINGS: There is a 4.1 mm hyperdense peripheral nodule within the right lateral basal segment lower lobe seen currently on sequence 1002, image 7. There is lingular and perifissural left lower lobe subsegmental atelectasis. The visualized portions of the heart are within normal limits. Normal liver. Normal gallbladder and extrahepatic biliary system. Normal spleen. Normal pancreas. Normal bilateral adrenal glands. Normal right kidney. Normal left kidney. Normal visualized stomach. Normal small intestine. Normal colon. The appendix is nondilated. The appendix contains an appendicolith seen best on sequence 1002, image 110. There is no periappendiceal or pericecal inflammatory change. Normal abdominal aorta except for calcified plaque involving the aortoiliac system. Normal inferior vena cava. Normal retroperitoneum. Normal urinary bladder. Normal abdominal wall. There is no acute osseous abnormality. There is no suspicious lytic or blastic osseous pathology. CT/Abdomen/Pelvis without Cont IMPRESSION: 4.1 mm hyperdense peripheral nodule within the right lower lobe. This is a nonspecific finding. Recommend follow-up in accordance with the Fleischner Society criteria and recommendations. Lingular and perifissural left lower lobe subsegmental atelectasis versus fibrosis. Appendicolith without distended appendix. There is no periappendiceal or pericecal inflammatory change, free fluid or kenia abscess. Atherosclerotic peripheral vascular disease. Electronically Signed: Brian Howard MD at 15:41 EDT , Service support ,
[2018-03-11] MEDS: HYDROmorphone 1 MG/ML Syringe IV (13:40)
[2018-03-11] MEDS: proMETHazine 25 MG/ML Syringe 12.5 MG IV (13:40)
[2018-03-11] MEDS: 0.9% Normal Saline 1,000 ML 125 ML IV (13:40)
[2018-03-11 13:53] LABS: Bacteria 0 SEEN /hpf (None Seen); Mucous, Urine 0 SEEN /hpf (<or=2+); Red Blood Cells-Urine 0 SEEN /hpf (0-5); Squamous Epithelial Cells - UA 0 SEEN /hpf (5-10); White Blood Cells 0 SEEN /hpf (0-5)
[2018-03-11 13:59] LABS: Absolute Neutrophil Count 3.1 X10^3/uL (2.0-7.7); Basophil# 0.08 X10^3/uL; Basophil% 1.1 % (0-1); Eosinophils% 1.4 % (0-5); Hematocrit 38.7 % (37-47); Mean Corp Hgb Conc 33.6 g/gl (32-36); Mean Corpuscular Hgb 29.8 pg (27.0-32.0); Mean Corpuscular Volume 88.8 fL (81-99); Mean Platelet Vol. 10.6 fl (6.2-12.0); Monocyte# 0.68 X10^3/uL; Monocyte% 9.6 % (0-10); Neutrophil # 3.08 X10^3/uL (2.7-7.7); Neutrophil % 43.8 % (47-70); Platelet Count 308 K/mm3 (150-450); RBC Distribution Width CV 14.2 % (11.6-14.6); Red Blood Count 4.36 M/mm3 (4.2-5.4); White Blood Count 7.1 K/mm3 (4.4-11.0)
[2018-03-11 14:00] LABS: Color, Urine Yellow (Yellow); Glucose, Dipstick Normal (Normal); Ketone-Dipstick Negative (Negative); Leukocyte Esterase-Dipstick Negative /ul (Negative); Nitrite-Dipstick Negative (Negative); Occult Blood-Urine Negative /ul (Negative); Protein-Dipstick Negative (Negative); Specific Gravity, Urine 1.015 (1.002-1.030); Urine Bilirubin Dipstick Negative (Negative); Urine Clarity Clear (Clear); Urine Urobilinogen Normal (Normal); Urine pH 6.5 (5.0 - 8.0)
[2018-03-11 14:00] LABS: Differential Indicated SCAN CRITERIA MET; POSITIVE COUNT NO; POSITIVE DIFFERENTIAL NO; POSITIVE MORPHOLOGY YES
[2018-03-11 14:19] LABS: ALB/GLOB Ratio 0.9 RATIO (0.9-2.4); AST(SGOT) 23 U/L (15-37); Alanine Aminotransfer ALT/SGPT 24 U/L (13-56); Albumin, Serum 3.6 g/dL (3.2-5.0); Alkaline Phosphatase 83 U/L (45-117); Anion Gap 5 (5-15); BUN 20 mg/dL (7-18); BUN/Creat Ratio 20.4 RATIO (10-20); Calcium,Total 9.7 mg/dL (8.5-10.1); Chloride 108 mmol/L (98-107); Creatinine, Serum 0.98 mg/dL (0.55-1.02); EST Glomerular Filtration Rate 61 mL/min (>60); Est Glom Filt Rate - Afr Amer 74 mL/min (>60); Estimated Creatinine Clearance 53.37 ml/min; Glucose 98 mg/dL (74-106); Lipase 250 U/L (73-393); Protein, Total 7.6 g/dL (6.4-8.2); Sodium Level 140 mmol/L (136-145)
[2018-03-11 15:52] VITALS: RESP 18; O2SAT 98
--- NOTE | 2018-03-11 15:56 | ED.VISSUMM ---
- ER Visit Summary Date of Service: 03/11/18 Chief Complaint: [Abdominal pain] History of Present Illness: The patient is a 57 F [presents to the emergency department with complaint of abdominal pain that started for 5 months ago. Patient states the pain is become worse over the last couple of days. Patient describes the pain is right lower abdomen. Patient has not had any fevers at home. Patient denies urinary symptoms. Patient states she saw Dr. Marge Agrawal and had a colonoscopy about a month ago and had some polyps removed from her colon. Patient states at times pain is triggered by eating. Patient denies any blood in her stool or black tarry stool. She has not had any diarrhea. Physical Examination: HEENT-PERRLA, EOMI. Cranial nerves II through XII grossly intact. TMs clear. Mucous membranes moist. No adenopathy. Cardiovascular-regular rate and rhythm without murmur or ectopy Lungs-clear to auscultation, chest wall stable without crepitus or subcu emphysema Abdomen-normoactive bowel sounds, soft. Patient has tenderness over right lower quadrant without guarding, rebound, rigidity. Patient has some mild CVA tenderness on the right.. Extremities-intact ?4, normal range of motion, normal pulses, atraumatic Test Results: [CBC with differential 7.1, hemoglobin 13, hematocrit 39, platelets 308. Abdias's were unremarkable. Liver enzymes were normal. Lipase was 250. Urinalysis was normal. CT scan of the abdomen pelvis showed a right lower lobe 4.1 mm nodule which the patient knows about and is scheduled to have a repeat imaging study in May for this. Patient also noted to have an appendicolith within the appendix without evidence of distention of the appendix or inflammatory changes around the appendix.] Emergency Department Course and Treatment: [Patient was medicated with Dilaudid and Zofran as well as Phenergan. Patient felt much improved after treatment.] Treatment Plan: [She will be given a prescription for 12 [place] for severe pain. 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 I will give patient referral to GI as well.] Disposition: [Discharged home in stable condition. Patient advised to return if worsening pain, fever, vomiting, dehydration, or condition should worsen in any way.] Impression: [Abdominal pain-etiology uncertain] This note was generated with [employer] software. It may contain incorrect words, spelling, and punctuation that were not noted in review of the chart prior to signing ED Disposition - Plan for ED Patient: Chief Complaint: Abd Pain Referrals: Kyle Monterroso MD [Primary Care Provider] -
--- NOTE | 2018-03-11 16:01 | ED.DCSUM_ITS ---
- ER Visit Summary Date of Service: 03/11/18 Chief Complaint: [Abdominal pain] History of Present Illness: The patient is a 57 F [presents to the emergency department with complaint of abdominal pain that started for 5 months ago. Patient states the pain is become worse over the last couple of days. Patient describes the pain is right lower abdomen. Patient has not had any fevers at home. Patient denies urinary symptoms. Patient states she saw Dr. Marge Agrawal and had a colonoscopy about a month ago and had some polyps removed from her colon. Patient states at times pain is triggered by eating. Patient denies any blood in her stool or black tarry stool. She has not had any diarrhea. Physical Examination: HEENT-PERRLA, EOMI. Cranial nerves II through XII grossly intact. TMs clear. Mucous membranes moist. No adenopathy. Cardiovascular-regular rate and rhythm without murmur or ectopy Lungs-clear to auscultation, chest wall stable without crepitus or subcu emphysema Abdomen-normoactive bowel sounds, soft. Patient has tenderness over right lower quadrant without guarding, rebound, rigidity. Patient has some mild CVA tenderness on the right.. Extremities-intact ?4, normal range of motion, normal pulses, atraumatic Test Results: [CBC with differential 7.1, hemoglobin 13, hematocrit 39, platelets 308. Abdias's were unremarkable. Liver enzymes were normal. Lipase was 250. Urinalysis was normal. CT scan of the abdomen pelvis showed a right lower lobe 4.1 mm nodule which the patient knows about and is scheduled to have a repeat imaging study in May for this. Patient also noted to have an appendicolith within the appendix without evidence of distention of the appendix or inflammatory changes around the appendix.] Emergency Department Course and Treatment: [Patient was medicated with Dilaudid and Zofran as well as Phenergan. Patient felt much improved after treatment.] Treatment Plan: [She will be given a prescription for 12 Peralta for severe pain. 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 I will give patient referral to GI as well.] Disposition: [Discharged home in stable condition. Patient advised to return if worsening pain, fever, vomiting, dehydration, or condition should worsen in any way.] Impression: [Abdominal pain-etiology uncertain] This note was generated with [employer] software. It may contain incorrect words, spelling, and punctuation that were not noted in review of the chart prior to signing ED Disposition - Plan for ED Patient: Chief Complaint: Abd Pain Referrals: Kyle Monterroso MD [Primary Care Provider] -
--- NOTE | 2018-03-11 16:02 | ED.DEP ---
ED Disposition - Plan for ED Patient: Chief Complaint: Abd Pain Instructions: ED Abdominal Pain Unkn Cause Prescriptions: Hydrocodone Bitart/Apap 5-325 [[place] 5/325] 1 - 2 tab PO Q4H PRN PRN 3 Days #12 tab PRN Reason: Pain Ondansetron [Zofran Odt] 4 mg PO Q8H PRN PRN #10 tab PRN Reason: Nausea Referrals: Kyle Monterroso MD [Primary Care Provider] - Marge Agrawal MD [STAFF PHYSICIAN] - 5-7 Days Bhupinder Garcia MD [STAFF PHYSICIAN] - 5-7 Days
[2018-03-11 16:09] VITALS: BP 119/84; PULSE 69; RESP 18; O2SAT 95
== END 2018-03-11 16:10 | disposition home or self-care (01) ==
LOC: ED 13:33
PROVIDERS: Emergency Provider Emergency Medicine; Family Provider Family Medicine; PCP Family Medicine
DX: R10.9 Unspecified abdominal pain (principal); R11.0 Nausea; E78.00 Pure hypercholesterolemia, unspecified; E03.9 Hypothyroidism, unspecified; K38.1 Appendicular concretions
CPT/HCPCS: 74176; 80053; 81001; 83690; 85025; 96361; 96374; 96375; 99283; J7030; A4216

== ENCOUNTER 2019-05-15 18:26 | Emergency (ER) | payer MEDICARE, MEDICAID, SELFPAY ==
[2019-05-15 18:28] VITALS: BP 126/79; PULSE 75; RESP 16; TEMP 36.2; O2SAT 95; BMI 32.8
--- NOTE | 2019-05-15 18:53 | RAD_ITS ---
STUDY: X-RAY - UNILATERAL RIBS ( LEFT ) WITH CHEST REASON FOR EXAM: Female, 59 years old. Pain upper anterior chest following injury TECHNIQUE - RIBS: 3 view(s) of the ribs. TECHNIQUE - CHEST: PA chest COMPARISON: None. FINDINGS - RIBS: No visible rib fracture. FINDINGS - CHEST: There is mild platelike atelectasis at the left lung base. Lungs are otherwise clear. There is no apparent effusion or pneumothorax. Normal cardiomediastinal silhouette, latia and pleural margins. Shoulder girdle intact. No evidence of spinal injury. Upper abdomen unremarkable. RAD/Ribs Uni Min 3V w/PA Chest IMPRESSION: RIBS: No visualized rib fracture. CHEST: Mild left lung base atelectasis. Electronically Signed: Vineet Chaparro MD at 19:30 EDT Tel , Service support ,
--- NOTE | 2019-05-15 18:55 | ED.RN ---
PT REPORTS KIND OF HAD INJURY PAIN IS WHERE REACHES IN A BARREL TO FEED ANIMALS
--- NOTE | 2019-05-15 19:14 | ED.DCSUM_ITS ---
- ER Visit Summary Date of Service: 05/15/19 Chief Complaint: Rib pain History of Present Illness: The patient is a 59 F who states that 3 days ago she began with pain underneath her left breast along the rib. She states she has a barrel that she keeps pet food in it. Rather than picking up the back and l ifting it out of the barrel she is been leaning over the barrel. The pain has steadily worsened but she also has continued to do that same motion. Today it was more painful and not relieved by Tylenol so she came in. She denies any rashes. Breath. No nausea vomiting or sweating. Patient states she has a history of having a broken rib without trauma. Physical Examination: Afebrile vital signs stable Gen: Well-nourished well-developed Head: Normocephalic atraumatic Eyes: Perrl EOMI ENT: TMs clear no rhinorrhea moist mucous membranes Neck: Supple no lymphadenopathy no JVD nontender CVS: Regular rate rhythm no murmurs normal S1-S2 Respiratory: No distress clear to auscultation bilaterally with exquisite tenderness along the rib just inferior to her breast on the left. No rashes. Abdomen: Soft nontender nondistended normal bowel sounds no masses Back: Nontender Extremity: Nontender no edema Skin: Normal color no rash Neuro: alert orientated ?3 CN II-XII intact normal strength sensation reflexes gait cerebellar Psych: Normal affect normal mood Test Results: Rib series were obtained. These were negative for fracture. Emergency Department Course and Treatment: Patient most likely has a chest wall strain/rib contusion. We will treat conservatively at home. I will write for short course of pain medication. Was instructed on return instructions and instructed to do deep breathing thing exercises to help prevent pneumonia. Impression: 1. Chest wall strain/contusion This note was generated with [employer] dictation software. It may contain incorrect words, spelling, and punctuation that were not noted in review of the chart prior to signing ED Disposition - Plan for ED Patient: Disposition: Home or Assisted Living Instructions: Chest Wall Strain, Chest Wall Contusion Prescriptions: Hydrocodone Bitart/Apap 5-325 [[place] 5MG-325MG] 1 tab PO Q6H PRN PRN 3 Days #10 tab PRN Reason: Pain Prescription Printed Referrals: Kyle Monterroso MD [Primary Care Provider] - 1 Week if not improving
[2019-05-15 19:50] VITALS: BP 118/70; PULSE 70; RESP 16; O2SAT 98
[2019-05-15] MEDS: HYDROcodone Bitartrate/Apap 5/325 Tablet PO (19:58)
[2019-05-15 20:02] VITALS: BP 128/84; PULSE 68; O2SAT 98
== END 2019-05-15 20:04 | disposition home or self-care (01) ==
PROVIDERS: Emergency Provider Emergency Medicine; Family Provider Family Medicine; PCP Family Medicine
DX: S20.212A Contusion of left front wall of thorax, initial encounter (principal); S29.011A Strain of muscle and tendon of front wall of thorax, initial encounter; X50.1XXA Overexertion from prolonged static or awkward postures, initial encounter; Y93.9 Activity, unspecified; Y92.9 Unspecified place or not applicable; Y99.9 Unspecified external cause status
CPT/HCPCS: 71101; 99283

== ENCOUNTER 2019-06-04 09:21 | Emergency (ER) | payer MEDICARE, MEDICAID, SELFPAY ==
[2019-06-04 09:23] VITALS: BP 121/58; PULSE 68; RESP 18; TEMP 36.6; O2SAT 99; BMI 32.5
--- NOTE | 2019-06-04 09:43 | CT_ITS ---
STUDY: CT ABDOMEN AND PELVIS WITH CONTRAST REASON FOR EXAM: Female, 59 years old. One week history of diffuse abdominal pain and belching. RADIATION DOSAGE (If Supplied By Facility): CTDIvol = ( 14.77 ) mGy, DLP = ( 963.55 ) mGycm TECHNIQUE: Transaxial images were obtained from the dome of the diaphragm to the symphysis pubis without oral contrast. 100 IV Isovue 300 was administered. Sagittal and coronal images were reconstructed. Individualized dose optimization techniques were used for this CT. COMPARISON: None. FINDINGS: Stable linear density in the lingular segment of the left upper lobe most likely representing scarring. Stable 4 mm hypodense nodule in the peripheral aspect of the right lower lobe. The visualized portions of the heart are within normal limits. There is decreased attenuation of the liver consistent with steatosis. Normal gallbladder and extrahepatic biliary system. Normal spleen. Normal pancreas. Normal bilateral adrenal glands. Normal right kidney. Normal left kidney. There is evidence of a 4.1 cm x 3.9 cm fundus tail diverticulum. Normal small intestine. There are multiple colonic diverticula consistent with diverticulosis. Moderate amount of material is seen in the colon. The appendix is visualized and appears normal. Small lymph nodes are seen in the mesentery in the right lower quadrant suggestive of mesenteric lymphadenitis. There is diffuse atherosclerotic calcification of the abdominal aorta, without a demonstrated aneurysm. Normal inferior vena cava. There is borderline retroperitoneal lymphadenopathy with enlarged nodes no greater than 10mm in the short axis diameter. Normal urinary bladder. Normal abdominal wall. Disc space narrowing and degeneration at the L5-S1 level. CT/Abdomen/Pelvis W IV Cont ONLY IMPRESSION: Fatty infiltration of the liver. Findings detail diverticulum. Sigmoid diverticulosis. Electronically Signed: Elijah Gill, at 11:04 EDT , Service support ,
--- NOTE | 2019-06-04 09:46 | ED.VISSUMM ---
- ER Visit Summary Date of Service: 06/04/19 Chief Complaint: Abdominal pain for 1 week History of Present Illness: The patient is a 59 F history of irritable bowel, TIA and hiatal hernia. Patient had prior bladder surgery but no other abdominal surgeries. States for the last week she is abdominal pain epigastric and now diffuse. Does not radiate into her back. She had associated nausea and vomiting. No diarrhea. States she is been constipated with hard stools and no bowel movement for the last 3 to 4 days. Denies any dysuria. No fever. No abdominal trauma. Physical Examination: Older female no acute distress. Vital signs are stable afebrile. HEENT exam mildly dry mucous membranes. Neck nontender no lymphadenopathy. Lungs clear to auscultation bilaterally. Heart regular rhythm rate about 65 no murmur. Abdomen soft. Mildly distended. Decreased bowel sounds. Diffusely tender but not impressively so. No peritoneal signs. No hernias or masses. Patient does not have a surgical abdomen at this time. Patient is moving all 4 extremities. Nontender no edema. Back is nontender. Neurologically she is awake and alert. Test Results: CBC normal white 5. Hemoglobin 12. No bands. Normal normal creatinine and gap. Liver enzymes and lipase normal. UA normal no signs of infection. CT abdomen pelvis shows sigmoid diverticulosis but no acute infection. Normal-appearing appendix. Increased stool consistent with constipation. Urologist and reviewed by me. Emergency Department Course and Treatment: Treated with IV fluids, morphine and Zofran. CAT scan labs will be obtained. Multiple repeat exams patient is doing well. Her abdomen is benign letter from 10 AM. I went over all test results with her and her friend at bedside. They are comfortable being discharged home. She will be treated with IV citrate for constipation. Treatment Plan: Magnesium citrate.. Fiber. Follow-up with your doctor as needed. Disposition: Discharge Impression: Acute abdominal pain secondary to constipation This note was generated with [employer] dictation software. It may contain incorrect words, spelling, and punctuation that were not noted in review of the chart prior to signing ED Disposition - Plan for ED Patient: Referrals: Kyle Monterroso MD [Primary Care Provider] -
[2019-06-04] MEDS: 0.9% Normal Saline 1,000 ML 1000 ML IV (10:08)
[2019-06-04] MEDS: Ondansetron 4 MG/2 ML Vial IV (10:09)
[2019-06-04] MEDS: Morphine 4 MG/ML Syringe IV (10:09)
[2019-06-04 10:11] LABS: Absolute Lymphocyte Count 1.96 X10^3/uL (0.83-4.51); Absolute Neutrophil Count 2.7 X10^3/uL (2.0-7.7); Basophil# 0.04 X10^3/uL; Basophil% 0.8 % (0-1); Eosinophil# 0.09 X10^3/uL; Eosinophils% 1.7 % (0-5); Hematocrit 38.2 % (37-47); Hemoglobin 12.3 g/dL (12.0-15.0); Lymphocyte # 1.96 X10^3/ul (4.0); Lymphocyte % 37.7 % (19-41); Mean Corp Hgb Conc 32.2 g/dL (32-36); Mean Corpuscular Hgb 28.7 pg (27.0-32.0); Mean Corpuscular Volume 89.3 fL (81-99); Mean Platelet Vol. 10.2 fl (6.2-12.0); Monocyte# 0.41 X10^3/uL; Monocyte% 7.9 % (0-10); NRBC Flagged by Analyzer 0 % (0-5); Neutrophil # 2.69 X10^3/uL (2.7-7.7); Neutrophil % 51.7 % (47-70); Platelet Count 321 K/mm3 (150-450); RBC Distribution Width CV 13.7 % (11.6-14.6); RBC Distribution Width SD 44.7 fl (35.1-43.9); Red Blood Count 4.28 M/mm3 (4.2-5.4); White Blood Count 5.2 K/mm3 (4.4-11.0)
[2019-06-04 10:21] LABS: AST(SGOT) 14 U/L (15-37); Alanine Aminotransfer ALT/SGPT 18 U/L (13-56); Albumin, Serum 3.8 g/dL (3.2-5.0); Alkaline Phosphatase 68 U/L (45-117); Anion Gap 6 (5-15); BUN 17 mg/dL (7-18); BUN/Creat Ratio 16.5 RATIO (10-20); Bilirubin, Direct 0.09 mg/dL (0.00-0.30); Calcium,Total 9.2 mg/dL (8.5-10.1); Chloride 108 mmol/L (98-107); Creatinine, Serum 1.03 mg/dL (0.55-1.02); EST Glomerular Filtration Rate 58 mL/min (>60); Est Glom Filt Rate - Afr Amer 70 mL/min (>60); Estimated Creatinine Clearance 49.53 ml/min; Glucose 101 mg/dL (74-106); Lipase 170 U/L (73-393); Potassium 3.9 mmol/L (3.5-5.1); Protein, Total 7.8 g/dL (6.4-8.2); Sodium Level 138 mmol/L (136-145)
[2019-06-04 10:34] LABS: Mucous, Urine 0 SEEN /hpf (<or=2+); Red Blood Cells-Urine 0 SEEN /hpf (0-5)
[2019-06-04 10:38] LABS: Color, Urine Yellow (Yellow); Glucose, Dipstick Normal (Normal); Ketone-Dipstick Negative (Negative); Leukocyte Esterase-Dipstick Negative /ul (Negative); Nitrite-Dipstick Negative (Negative); Occult Blood-Urine Negative /ul (Negative); Protein-Dipstick Negative (Negative); Urine Bilirubin Dipstick Negative (Negative); Urine Clarity Sl. Cloudy (Clear); Urine Urobilinogen Normal (Normal)
[2019-06-04 10:51] LABS: Bacteria RARE /hpf (None Seen); Squamous Epithelial Cells - UA 0-5 SEEN /hpf (5-10); White Blood Cells 0-5 SEEN /hpf (0-5)
[2019-06-04 11:22] VITALS: BP 118/73; PULSE 63; RESP 18; O2SAT 94
--- NOTE | 2019-06-04 11:25 | ED.DEP ---
ED Disposition - Plan for ED Patient: Disposition: Home or Assisted Living Instructions: CONSTIPATION (Adult) Referrals: Kyle Monterroso MD [Primary Care Provider] - 1 Week if not improving Additional Instructions: Plenty of water and fiber. Magnesium citrate drink the entire bottle she had no bowel movement within 2 to 4 hours if not drink the second bottle. Follow-up your doctor if not improving.
[2019-06-04] MEDS: Magnesium Citrate 300 ML PO (11:33)
== END 2019-06-04 11:38 | disposition home or self-care (01) ==
PROVIDERS: Emergency Provider Emergency Medicine; Family Provider Family Medicine; PCP Family Medicine
DX: K59.00 Constipation, unspecified (principal); Z86.73 Personal history of transient ischemic attack (TIA), and cerebral infarction without residual deficits; K57.30 Diverticulosis of large intestine without perforation or abscess without bleeding; R11.2 Nausea with vomiting, unspecified
CPT/HCPCS: 74177; 80048; 80076; 81001; 83690; 85025; 96361; 96374; 96375; 99284; J7030; Q9967; A4216; J2405

== ENCOUNTER 2019-06-09 18:16 | Emergency (ER) | payer MEDICARE, MEDICAID, SELFPAY ==
[2019-06-09 18:16] VITALS: BP 118/70; PULSE 76; RESP 18; TEMP 36; O2SAT 97; BMI 33.1
--- NOTE | 2019-06-09 18:37 | ED.DCSUM_ITS ---
- ER Visit Summary Date of Service: 06/09/19 Chief Complaint: Abdominal pain History of Present Illness: The patient is a 59 F who presents with abdominal pain. She has had this pain for 2 weeks. It sharp in the epigastric region. It does not radiate. She admits to nausea and vomiting. Nothing makes her symptoms better or worse. She was constipated at her visit last week but now her stools are moving. She is on fiber and stool softeners at home. She also takes Protonix and Zofran without any relief. She denies any fevers. She took nothing for pain at home. She tells me that she was diagnosed with a hiatal hernia when she was here last week. Physical Examination: Vital signs reviewed. HEENT exam unremarkable. Heart is regular rate and rhythm without murmurs. Lungs are clear to auscultation. Abdomen is soft with tenderness in the epigastric region. There is no guarding or rebound tenderness. Extremities reveal no edema. Skin exam normal. Neurologic exam normal. Test Results: Laboratory studies are unremarkable except for hemoglobin of 11.5 Emergency Department Course and Treatment: The patient was given a GI cocktail with improvement of her symptoms. She states her pain returned so I gave her Carafate. I feel the etiology is likely in her stomach, either gastritis or ulcers. I will treat her with Carafate at home to add to her Protonix. I will give her follow-up with Dr. [place] Treatment Plan: [] Disposition: Discharge Impression: Abdominal pain, epigastric This note was generated with [employer] dictation software. It may contain incorrect words, spelling, and punctuation that were not noted in review of the chart prior to signing ED Disposition - Plan for ED Patient: Referrals: Kyle Monterroso MD [Primary Care Provider] -
[2019-06-09] MEDS: Mag Hydrox/Al Hydrox/Simeth 30 ML UDC PO (18:50)
[2019-06-09 19:03] LABS: Absolute Lymphocyte Count 3.22 X10^3/uL (0.83-4.51); Absolute Neutrophil Count 2.8 X10^3/uL (2.0-7.7); Basophil# 0.05 X10^3/uL; Basophil% 0.7 % (0-1); Eosinophil# 0.16 X10^3/uL; Eosinophils% 2.3 % (0-5); Hematocrit 35.5 % (37-47); Hemoglobin 11.5 g/dL (12.0-15.0); Lymphocyte # 3.22 X10^3/ul (4.0); Lymphocyte % 46.5 % (19-41); Mean Corp Hgb Conc 32.4 g/dL (32-36); Mean Corpuscular Hgb 28.9 pg (27.0-32.0); Mean Corpuscular Volume 89.2 fL (81-99); Mean Platelet Vol. 10.4 fl (6.2-12.0); Monocyte# 0.74 X10^3/uL; Monocyte% 10.7 % (0-10); NRBC Flagged by Analyzer 0 % (0-5); Neutrophil # 2.75 X10^3/uL (2.7-7.7); Neutrophil % 39.7 % (47-70); Platelet Count 288 K/mm3 (150-450); RBC Distribution Width CV 13.8 % (11.6-14.6); RBC Distribution Width SD 44.9 fl (35.1-43.9); Red Blood Count 3.98 M/mm3 (4.2-5.4); White Blood Count 6.9 K/mm3 (4.4-11.0)
[2019-06-09 19:22] LABS: AST(SGOT) 11 U/L (15-37); Alanine Aminotransfer ALT/SGPT 18 U/L (13-56); Albumin, Serum 3.6 g/dL (3.2-5.0); Alkaline Phosphatase 68 U/L (45-117); Anion Gap 6 (5-15); BUN 18 mg/dL (7-18); Calcium,Total 8.6 mg/dL (8.5-10.1); Chloride 111 mmol/L (98-107); Creatinine, Serum 1.06 mg/dL (0.55-1.02); EST Glomerular Filtration Rate 56 mL/min (>60); Est Glom Filt Rate - Afr Amer 68 mL/min (>60); Estimated Creatinine Clearance 48.13 ml/min; Globulin 3.7 g/dL (2.2-4.2); Glucose 93 mg/dL (74-106); Lipase 271 U/L (73-393); Potassium 3.7 mmol/L (3.5-5.1); Protein, Total 7.3 g/dL (6.4-8.2); Sodium Level 141 mmol/L (136-145)
--- NOTE | 2019-06-09 19:31 | ED.DEP ---
ED Disposition - Plan for ED Patient: Disposition: Home or Assisted Living Instructions: ABDOMINAL PAIN, Unknown Cause, (Female) Prescriptions: Sucralfate [Carafate] 1 gm PO 4X/DAY #60 tab Prescription Printed Referrals: Kyle Monterroso MD [Primary Care Provider] - Nicholas Leung MD [STAFF PHYSICIAN] -
[2019-06-09] MEDS: Sucralfate 1 GM Tablet PO (19:45)
[2019-06-09 19:48] VITALS: BP 124/78; PULSE 72; RESP 16; O2SAT 95
== END 2019-06-09 19:49 | disposition home or self-care (01) ==
PROVIDERS: Emergency Provider Emergency Medicine; Family Provider Family Medicine; PCP Family Medicine
DX: R10.13 Epigastric pain (principal); R11.2 Nausea with vomiting, unspecified; K21.9 Gastro-esophageal reflux disease without esophagitis; K58.9 Irritable bowel syndrome, unspecified
CPT/HCPCS: 80053; 83690; 85025; 99284

== ENCOUNTER 2019-06-19 20:30 | Emergency (ER) | payer MEDICARE, MEDICAID, SELFPAY ==
[2019-06-14 14:19] VITALS: BMI 33.1
[2019-06-19 20:32] VITALS: BP 142/71; PULSE 88; PULSE 89; RESP 17; TEMP 36.5; O2SAT 96; BMI 32.9
[2019-06-19 20:58] LABS: Color, Urine Yellow (Yellow); Glucose, Dipstick Normal (Normal); Ketone-Dipstick Negative (Negative); Leukocyte Esterase-Dipstick 500 /ul (Negative); Nitrite-Dipstick Negative (Negative); Occult Blood-Urine 25 /ul (Negative); Protein-Dipstick Negative (Negative); Specific Gravity, Urine 1.015 (1.002-1.030); Urine Bilirubin Dipstick Negative (Negative); Urine Clarity Sl. Cloudy (Clear); Urine Urobilinogen Normal (Normal)
[2019-06-19 21:12] LABS: Bacteria 1+ /hpf (None Seen); Mucous, Urine 1+ /hpf (<or=2+); Red Blood Cells-Urine 0-5 SEEN /hpf (0-5); Squamous Epithelial Cells - UA 0-5 SEEN /hpf (5-10); White Blood Cells 10-25 SEEN /hpf (0-5)
--- NOTE | 2019-06-19 22:25 | ED.VISSUMM ---
- ER Visit Summary Date of Service: 06/19/19 Chief Complaint: Dysuria History of Present Illness: The patient is a 59 F who presents with pain with urination that just began this evening. She also complains of urinary urgency and frequency. She complains of lower abdominal pain. No fevers nausea vomiting. Physical Examination: Afebrile vitals normal No distress Heart regular rate and rhythm Lungs are clear Abdomen soft with suprapubic tenderness without guarding without rebound Alert Test Results: UA shows 500 leukocyte esterase, 10-25 WBCs and 1+ bacteria. Emergency Department Course and Treatment: Patient will be treated for cystitis. She was given prescriptions for Bactrim and Pyridium. She was advised to follow-up with her primary care physician and was discharged home. Treatment Plan: [] Disposition: Discharge Impression: Cystitis This note was generated with marker.to dictation software. It may contain incorrect words, spelling, and punctuation that were not noted in review of the chart prior to signing ED Disposition - Plan for ED Patient: Referrals: Kyle Monterroso MD [Primary Care Provider] -
--- NOTE | 2019-06-19 22:27 | ED.DEP ---
ED Disposition - Plan for ED Patient: Instructions: Urinary Tract Infections in Women Prescriptions: Smz/Tmp Ds [Bactrim Ds] 1 tab PO BID #6 tab Prescription Printed Phenazopyridine HCl [Pyridium] 200 mg PO TID #10 tab Prescription Printed Referrals: Kyle Monterroso MD [Primary Care Provider] -
[2019-06-19 22:38] VITALS: BP 116/77; PULSE 78; RESP 16
== END 2019-06-19 22:39 | disposition home or self-care (01) ==
PROVIDERS: Emergency Provider Emergency Medicine; Family Provider Family Medicine; PCP Family Medicine
DX: N30.90 Cystitis, unspecified without hematuria (principal); K21.9 Gastro-esophageal reflux disease without esophagitis; E78.00 Pure hypercholesterolemia, unspecified
CPT/HCPCS: 81001; 99282

== ENCOUNTER 2019-06-30 09:51 | Day surgery (SDC) | payer MEDICARE, MEDICAID, SELFPAY ==
--- NOTE | 2019-06-14 02:31 | HP_ITS ---
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 Is patient in pain?: No Allergies metronidazole [From Flagyl] Allergy (Verified 06/14/19 14:14) Nausea/Vom/Diarrhea benztropine [From Cogentin] Adverse Reaction (Verified 06/14/19 14:14) Other esomeprazole [From Nexium] Adverse Reaction (Verified 06/14/19 14:14) Nausea oxybutynin [From Ditropan] Adverse Reaction (Verified 06/14/19 14:14) Nausea/Vom/Diarrhea oxycodone [From Percocet] Adverse Reaction (Verified 06/14/19 14:14) Nausea Medications Aripiprazole [Abilify] 10 mg PO DAILY 10/01/16 [History Confirmed 06/14/19] Duloxetine Hcl [Cymbalta] 30 mg PO DAILY 10/01/16 [History Confirmed 06/14/19] Levothyroxine [Synthroid] 137 mcg PO DAILY 10/01/16 [History Confirmed 06/14/19] Rosuvastatin Calcium [Crestor] 40 mg PO QHS 10/01/16 [History Confirmed 06/14/19] Sumatriptan Succinate [Imitrex] 50 mg PO .X1 PRN 10/01/16 [History Confirmed 06/14/19] [place]-3 Fatty Acids [Fish Oil] 2,000 mg PO DAILY 11/21/16 [History Confirmed 06/14/19] buPROPion tablets [Wellbutrin tablets] 150 mg PO DAILY 06/23/17 [History Confirmed 06/14/19] Pantoprazole Sodium [Protonix] 40 mg PO DAILY 11/29/17 [History Confirmed 06/14/19] Benztropine [Cogentin] 1 mg PO BID 01/11/18 [History Confirmed 06/14/19] Multivitamin/Iron/Folic Acid [Centrum Adults Tablet] 1 ea PO DAILY 01/11/18 [History Confirmed 06/14/19] Ondansetron [Zofran Odt] 4 mg PO Q8H PRN PRN 01/11/18 [History Confirmed 06/14/19] Topiramate [Topamax] 50 mg PO BID 01/11/18 [History Confirmed 06/14/19] Albuterol Inhaler [Ventolin Hfa (SP)] 2 puff INHALATION Q4H PRN PRN 06/04/19 [History Confirmed 06/14/19] Baclofen [Lioresal] 5 mg PO TID PRN 06/04/19 [History Confirmed 06/14/19] Ergocalciferol [Vitamin D] 50,000 unit PO Q7D 06/04/19 [History Confirmed 06/14/19] Lactase 3,000 unit PO TIDCM 06/04/19 [History Confirmed 06/14/19] Sucralfate [Carafate] 1 gm PO 4X/DAY #60 tab 06/09/19 [Rx Confirmed 06/14/19] fenofibrate 54 mg tablet 54 mg PO DAILY 06/14/19 [History Confirmed 06/14/19] melatonin 10 mg capsule 10 mg PO HS 06/14/19 [History Confirmed 06/14/19] PFSH Medical History (Updated 06/14/19 @ 14:09 by Marycarmen Reyes) Diverticulitis (Acute) Hypothyroid (Acute) Depression (Acute) Lipidemia (Acute) Abdominal pain (Acute) Acid reflux (Acute) Anemia (Acute) Anxiety (Acute) Arthritis (Acute) Constipation (Acute) Diarrhea (Acute) IBS (irritable bowel syndrome) (Acute) Nausea and vomiting (Acute) SOB (shortness of breath) (Acute) Sleep apnea (Acute) Stroke (Acute) Surgical History (Updated 06/14/19 @ 14:10 by Marycarmen Reyes) History of arthroscopy of left knee (Acute) history bladder sling (Acute) history left ulnar nerve repair (Acute) Social History (Updated 06/14/19 @ 14:34 by Jerri Valverde MD) Smoking Status: Current every day smoker alcohol intake: never substance use type: does not use HPI HPI HPI: SIN MARSHALL, is a 59 F who presents to the office today for HPI HPI Surgical H&P: Yes HPI: SIN MARSHALL, is a 59 F who presents to the office today for abdominal pain. Patient states she is on epigastric pain for about 2 weeks with belching/gas. Patient did go to the ER and CT abdomen pelvis did show constipation patient was told to take magnesium citrate however patient states she is unable to take this she does have multiple bowel movements daily she takes iron so they are darker denies any blood. Patient states she will take MiraLAX occasionally if needed. Patient was also given some Carafate which she said has helped with the vomiting which no longer has patient states she is take Carafate up for about 1 week now. Patient states she has been on Protonix for at least 2 years not sure is helping anymore she has been on multiple other PPIs including Nexium per patient. Patient states her last EGD may be a couple years ago which showed any ulcers in her esophagus and a hiatal hernia, will try to get the report. Patient states she does have a history of IBS. Patient states that last Friday in the morning her bowel movement exploded and was all over her and she had watery bowel movements about every 15 minutes until 9 AM. Patient states currently they are back to normal currently, denies any hard stools and states she has bowel movements daily. Patient did undergo colonoscopy with Dr. Agrawal last year 02/04/2018 found tubular adenoma in her ascending colon diverticulosis and some nonbleeding internal and external hemorrhoids. ROS General General: Yes fatigue; no weight change, colon cancer, breast cancer or weakness HEENT HEENT: No difficulty swallowing, eye injury, eye surgery, swollen glands or hoarseness Endo Endocrine: Yes thyroid disease; no diabetes mellitus, thyroid cancer, Hair loss, heat intolerance or cold intolerance Skin Skin: No rash or changing moles Musc Musculoskeletal: Yes arthritis; no back problems, rheumatoid arthritis, gout or joint pain Cardio Cardiovascular: No murmur, pacemaker, heart disease, atrial fibrillation, high blood pressure, heart attack, heart stent, palpitations, shortness of breat with exertion or chest pain Psych Psychiatric: Yes depression and anxiety; no hearing voices Resp Respiratory: Yes shortness of breath, Yes sleep apnea, No cough, No COPD, No asthma, No emphysema, No wheezing Gastro Gastrointestinal: Yes abdominal pain, Yes nausea or vomiting, Yes diarrhea, Yes constipation, No blood in stool, Yes acid reflux, Yes hemorrhoids, No ulcers, No gallbladder problem, No black,tarry stools Sky Hematologic: No blood thinners, No blood disorders, No bleeding, Yes anemia, No blood clots Neuro Neurologic: No system reviewed and no additional complaints, except as docu, No as per HPI, No abnormal walking, No abnormal hearing, No abnormal movements, No abnormal speech, No behavioral changes, No burning sensations, No confusion, No seizure-like activity, No unsteadiness, No dizziness, No localized weakness, No frequent falls, No headache(s), No lack of coordination, No loss of vision, No memory loss, Yes numbness, No other visual disturbances, No radiating pain, No restless legs, No sensory deficit, No fainting, Yes tingling, No tremor(s), No weakness, No other Exam Const General: cooperative, comfortable, no acute distress Resp Effort & Inspection: normal respiratory effort Cardio Rate: regular rate Heart Sounds: no murmurs GI Inspection: non-distended Palpation: soft, no guarding, tender (Epigastric> mild diffuse, no PS) Psych Affect: flat Assessment & Plan Problems 1. Epigastric pain R10.13 2. Belching R14.2 3. Gastroesophageal reflux disease K21.9 4. Constipation K59.00 Plan I have discussed the above with the patient. Also offered patient could do a colonoscopy as she was having diffuse abdominal pain however she did just have one done last year which only showed a tubular adenoma in the ascending colon and some diverticulosis patient declined an additional colonoscopy. I have offered the patient EGD for evaluation. I have explained the risks/benefits of the procedure and described the procedure. I have discussed the risks with the patient, including but not limited to: infection, bleeding, perforation of the GI tract requiring emergency surgery, inability to complete the procedure, injury to any internal organs, complications of anesthesia, etc. - the patient understands and agrees to proceed. I have answered all the patient's questions to the patient's satisfaction and the patient has no further questions. Jerri Valverde M.D. Pager: [phone] [facility] [address] [place] [address], [address] [place] [address] Office: [phone] Orders Orders: EGD Today Medications New: fenofibrate 54 mg PO DAILY Plan Detail Follow Up We will schedule EGD Coding Level of Care Code Off vis,new,level 3 Diagnoses Epigastric pain R10.13 Belching R14.2 Gastroesophageal reflux disease K21.9 Constipation K59.00 06/14/19 1435 <Electronically signed by Jerri Lindsey am, MD> Date _ Jerri Valverde MD I have re-examined the patient. There are no clinical changes since date of exam.
[2019-06-14 14:19] VITALS: BMI 33.1
[2019-06-30] VITALS (7 sets, daily range): BP systolic 97–107; BP diastolic 58–71; PULSE 53–68; RESP 16; TEMP 36.1–36.3; O2SAT 95–99; BMI 33.0
--- NOTE | 2019-06-30 10:45 | EGD_PTH ---
PATIENT: SIN MARSHALL LOC: [facility] U#:[id number] AGE/SX: 59/F ROOM: RE06/30/[address]: Dr. Jerri Valverde MD : 1960 BED: DIS: 06/30/2019 SPEC #: [id number] RECD: 06/30/19 11:52 STATUS: SERA SHERRY #: [id number] KRISTIN: 06/30/19 10:[address]: Jerri Valverde DEPT: SURGICAL PATHOLOGY RECD BY: Sree Monge ENTERED: 06/30/19 13:10 SP TYPE: EGD BIOPSY OT DR: Dr. Kyle Monterroso MD Tissues: A - Duodenum, NOS B - Gastric mucous membrane C - Gastric mucous membrane Procedures: Special Stain Group II Surgery Specimen Level IV Alcian Blue/PAS (control) HEADER OPERATION: EGD ([facility]) PRE-OP DIAGNOSIS: Epigastric pain, GERD TISSUE SUBMITTED: A - Duodenum biopsy, rule out sprue and histology, B - Antrum biopsy for H.?pylori and path, C - GE junction biopsy MICROSCOPIC DIAGNOSIS A. Duodenum, biopsy: A fragment of small intestinal mucosa with mild nonspecific chronic inflammation. B. Antrum, biopsy: Mild gastritis. See microscopic description and comment. C. GE junction, biopsy: A fragment of gastroesophageal mucosa with chronic inflammation. Intestinal metaplasia (goblet cell metaplasia) is not identified. See comment. SJ:jennifer 07/01/19 COMMENT B. The results of immunohistochemistry for Helicobacter pylori will be reported separately ([id number]). C. Alcian blue/PAS stain with matched control is used in the evaluation of the specimen. MICROSCOPIC DESCRIPTION Slides are reviewed. B. The specimen shows fragments of gastric mucosa with chronic inflammatory cell infiltrates in the lamina propria consisting of lymphocytes and plasma cells, consistent with mild chronic gastritis. GROSS DESCRIPTION A - Received in fixative is one container labeled with the patient's name and designated duodenal biopsy. The specimen consists of one irregular fragment of light ornelas soft tissue that measures 0.4 x 0.4 x 0.1 cm. The specimen is totally submitted in one cassette. B - Received in fixative is one container labeled with the patient's name and designated antrum biopsy. The specimen consists of one irregular fragment of light ornelas soft tissue that measures 0.4 x 0.4 x 0.1 cm. The specimen is totally submitted in one cassette. C - Received in fixative is one container labeled with the patient's name and designated GE junction biopsy. The specimen consists of one irregular fragment of light ornelas soft tissue that measures 0.6 x 0.3 x 0.1 cm. The specimen is totally submitted in one cassette. / SJ:rg 06/30/19 TC:3 CPT: 07878 x3, 06316
--- NOTE | 2019-06-30 10:45 | IMM_PTH ---
PATIENT: SIN MARSHALL LOC: [facility] U#:[id number] AGE/SX: 59/F ROOM: RE06/30/[address]: Dr. Jerri Valverde MD : 1960 BED: DIS: 06/30/2019 SPEC #: [id number] RECD: 06/30/19 13:40 STATUS: SERA REQ #: [id number] KRISTIN: 06/30/19 10:[address]: Jerri Valverde DEPT: IMMUNOHISTOCHEMISTRY RECD BY: Sarah Peguero ENTERED: 06/30/19 13:41 SP TYPE: IMMUNO OTHR DR: Dr. Kyle Monterroso MD Tissues: B - Stomach, NOS Procedures: H Pylori (initial) PHYSICIAN & INSTITUTION [place] [address] SPECIMEN INFORMATION: Tissue Source: B - Antrum biopsy Clinical Info: Epigastric pain, GERD Specimen Number: [id number] CPT code: 35256 METHODOLOGY: Deparaffinized sections of prefer/formalin-fixed tissue or PAP/DQ stained slides are incubated with monoclonal/polyclonal antibodies/oligonucleotide probes. Localization is made via biotin free immunoperoxidase method. Appropriate controls are performed and reacted as expected. Results on target cell population are indicated in the following table: RESULTS: ANTIBODY / CLONE RESULT Block B H Pylori (polyclonal) negative These tests were developed and their performance characteristics determined by [facility]. They may not have been cleared or approved by the U.S. Food and Drug Administration. The FDA has determined that such clearance or approval is not necessary. INTERPRETATION: B. Antrum biopsy: Negative for Helicobacter pylori organisms. SJ:jennifer 07/01/19
--- NOTE | 2019-06-30 11:09 | OP.ENDO_ITS ---
06/30/2019 Kyle Monterroso MD Re : Upper GI endoscopy procedure for Chanda Haq Dear Dr. Monterroso This procedure was performed on Sunday, June 30, 2019. My impressions and recommendations are as follows: Impressions : - Z-line irregular, 40 cm from the incisors. Biopsied. - Erythematous mucosa in the antrum. Biopsied. - Mucosal variant in the duodenum. Biopsied. Recommendations : - Await pathology results. - Discharge patient to home. - Continue present medications. My findings are described in the full procedure note, which is enclosed. If I can be of further assistance, please feel free to contact me at Doctor phone number(s): , Work: . Sincerely, MD Jerri Sarmiento MD 06/30/2019 11:09:00 AM This report has been signed electronically.
== END 2019-06-30 11:50 | disposition home or self-care (01) ==
LOC: EN 09:52 → AC 09:53
PROVIDERS: Family Provider Family Medicine; PCP Family Medicine; Referring Provider Family Medicine; Visit Provider Surgery
PROC: 0DJ08ZZ Inspection of Upper Intestinal Tract, Via Natural or Artificial Opening Endoscopic (ICD-10-PCS; CPT 43235; principal; 2019-06-30 10:40)
DX: K29.70 Gastritis, unspecified, without bleeding (principal); K22.8 Other specified diseases of esophagus; K31.89 Other diseases of stomach and duodenum; R10.13 Epigastric pain; K21.9 Gastro-esophageal reflux disease without esophagitis; R14.2 Eructation; K58.9 Irritable bowel syndrome, unspecified; Z88.1 Allergy status to other antibiotic agents; Z88.5 Allergy status to narcotic agent; Z87.891 Personal history of nicotine dependence
CPT/HCPCS: 43239; 88305; 88313; 88342; J7120; J2405

== ENCOUNTER 2019-08-11 10:17 | Day surgery (SDC) | payer MEDICARE, MEDICAID, SELFPAY ==
--- NOTE | 2019-07-29 02:46 | HP_ITS ---
Intake Vital Signs 07/29/19 Body Mass Index (BMI) 33.0 07/29/19 Weight: 195 lb 07/29/19 Respiratory Rate 19 H Intake Visit Reasons: Change in bowel habits Chief Complaint: abdominal pain Environmental Health Specialist Required: No Is patient in pain?: No Allergies metronidazole [From Flagyl] Allergy (Verified 07/29/19 13:47) Nausea/Vom/Diarrhea benztropine [From Cogentin] Adverse Reaction (Verified 07/29/19 13:47) Other esomeprazole [From Nexium] Adverse Reaction (Verified 07/29/19 13:47) Nausea oxybutynin [From Ditropan] Adverse Reaction (Verified 07/29/19 13:47) Nausea/Vom/Diarrhea oxycodone [From Percocet] Adverse Reaction (Verified 07/29/19 13:47) Nausea Medications Aripiprazole [Abilify] 10 mg PO DAILY 10/01/16 [History Confirmed 07/29/19] Duloxetine Hcl [Cymbalta] 30 mg PO DAILY 10/01/16 [History Confirmed 07/29/19] Levothyroxine [Synthroid] 137 mcg PO DAILY 10/01/16 [History Confirmed 07/29/19] Rosuvastatin Calcium [Crestor] 40 mg PO QHS 10/01/16 [History Confirmed 07/29/19] Sumatriptan Succinate [Imitrex] 50 mg PO .X1 PRN 10/01/16 [History Confirmed 07/29/19] [place]-3 Fatty Acids [Fish Oil] 2,000 mg PO DAILY 11/21/16 [History Confirmed 07/29/19] buPROPion tablets [Wellbutrin tablets] 150 mg PO DAILY 06/23/17 [History Confirmed 07/29/19] Pantoprazole Sodium [Protonix] 40 mg PO DAILY 11/29/17 [History Confirmed 07/29/19] Multivitamin/Iron/Folic Acid [Centrum Adults Tablet] 1 ea PO DAILY 01/11/18 [History Confirmed 07/29/19] Ondansetron [Zofran Odt] 4 mg PO Q8H PRN PRN 01/11/18 [History Confirmed 07/29/19] Topiramate [Topamax] 50 mg PO BID 01/11/18 [History Confirmed 07/29/19] Albuterol Inhaler [Ventolin Hfa (SP)] 2 puff INHALATION Q4H PRN PRN 06/04/19 [History Confirmed 07/29/19] Baclofen [Lioresal] 5 mg PO TID PRN 06/04/19 [History Confirmed 07/29/19] Ergocalciferol [Vitamin D] 50,000 unit PO Q7D 06/04/19 [History Confirmed 07/29/19] Lactase 3,000 unit PO TIDCM 06/04/19 [History Confirmed 07/29/19] fenofibrate 54 mg tablet 54 mg PO DAILY 06/14/19 [History Confirmed 07/29/19] melatonin 10 mg capsule 10 mg PO QHS 06/14/19 [History Confirmed 07/29/19] Phenazopyridine HCl [Pyridium] 200 mg PO TID #10 tab 06/19/19 [Rx Confirmed 07/29/19] sucralfate 100 mg/mL oral suspension 1 g PO .COMPLEX #840 ml 07/02/19 [Rx Confirmed 07/02/19] lactobacillus combination no.9 4 billion cell capsule 4,000 mmu cells PO DAILY 07/29/19 [History Confirmed 07/29/19] psyllium husk 0.4 gram capsule 0.4 g PO DAILY 07/29/19 [History Confirmed 07/29/19] PFSH Medical History Diverticulitis (Acute) Hypothyroid (Acute) Depression (Acute) Lipidemia (Acute) Abdominal pain (Acute) Acid reflux (Acute) Anemia (Acute) Anxiety (Acute) Arthritis (Acute) Constipation (Acute) Diarrhea (Acute) IBS (irritable bowel syndrome) (Acute) Nausea and vomiting (Acute) SOB (shortness of breath) (Acute) Sleep apnea (Acute) Stroke (Acute) Surgical History History of arthroscopy of left knee (Acute) history bladder sling (Acute) history left ulnar nerve repair (Acute) Social History (Updated 07/29/19 @ 14:46 by Jerri Valverde MD) Smoking Status: Former smoker alcohol intake: never substance use type: does not use HPI HPI HPI: SIN MARSHALL, is a 59 F who presents to the office today for HPI HPI Surgical H&P: Yes HPI: SIN MARSHALL, is a 59 F who presents to the office today for diarrhea for colonoscopy. Patient states that she has been having occasional explosive diarrhea for some time now, when it is explosive she would be incontinent. Most the time she does has diarrhea without incontinence. She states she does occasionally have constipation which can last 3 to 4 days last time she did go to the ER and did get some laxatives to help. Patient also takes some fiber supplements she is not sure exactly how much fiber she gets in a day. Patient has history of IBS. On her med list does list Bentyl 10 mg p.o. 4 times daily x5 days patient did not really remember taking this but stated it did not really help. Patient did get stool studies which were negative. Her PCP Dr. Mendez he did give her Lomotil she states it gives her headache and makes her sleepy. She has not been taking it. Patient denies any blood in her stool. Her last colonoscopy was in [address] Agrawal to found a tubular adenoma. Patient denies any family history of colon cancer. ROS General General: Yes fatigue; no weight change, colon cancer, breast cancer or weakness HEENT HEENT: No difficulty swallowing, eye injury, eye surgery, swollen glands or hoarseness Endo Endocrine: Yes thyroid disease; no diabetes mellitus, thyroid cancer, Hair loss, heat intolerance or cold intolerance Skin Skin: No rash or changing moles Musc Musculoskeletal: Yes arthritis; no back problems, rheumatoid arthritis, gout or joint pain Cardio Cardiovascular: No murmur, pacemaker, heart disease, atrial fibrillation, high blood pressure, heart attack, heart stent, palpitations, shortness of breat with exertion or chest pain Psych Psychiatric: Yes depression and anxiety; no hearing voices Resp Respiratory: Yes shortness of breath, Yes sleep apnea, No cough, No COPD, No asthma, No emphysema, No wheezing Gastro Gastrointestinal: Yes abdominal pain, Yes nausea or vomiting, Yes diarrhea, Yes constipation, No blood in stool, Yes acid reflux, Yes hemorrhoids, No ulcers, No gallbladder problem, No black,tarry stools Sky Hematologic: No blood thinners, No blood disorders, No bleeding, Yes anemia, No blood clots Neuro Neurologic: No weakness Exam Const General: cooperative, comfortable, no acute distress Resp Effort & Inspection: normal respiratory effort Cardio Rate: regular rate Heart Sounds: no murmurs GI Inspection: non-distended Palpation: soft, no guarding, nontender Assessment & Plan Problems 1. Diarrhea R19.7 Plan I have discussed the above with the patient. I have offered the patient colonoscopy for evaluation. We also plan for random biopsies due to patient's history of diarrhea. I have explained the risks/benefits of the procedure and described the procedure. I have discussed the risks with the patient, including but not limited to: infection, bleeding, perforation of the GI tract requiring emergency surgery, inability to complete the procedure, injury to any internal organs, complications of anesthesia, etc. - the patient understands and agrees to proceed. I have answered all the patient's questions to the patient's satisfaction and the patient has no further questions. The patient has been given instructions for the colon cleansing preparation. One day of clears, MiraLAX to flexible prep. Jerri Valverde M.D. Pager: [phone] [facility] [address] [place] [address], [address] [place] [address] Office: [phone] Orders Orders: Colonoscopy Today Plan Detail Follow Up We will schedule colonoscopy Coding Level of Care Code Off vis,est,level 3 Diagnoses Diarrhea R19.7 07/29/19 3236 <Electronically signed by Jerri Lindsey am, MD> Date _ Jerri Valverde MD I have re-examined the patient. There are no clinical changes since date of exam.
[2019-07-29 13:49] VITALS: BMI 33.0
[2019-08-11 10:38] VITALS: BP 114/72; PULSE 76; RESP 15; TEMP 36.7; O2SAT 100; BMI 32.9
[2019-08-11] MEDS: Lactated Ringers 1,000 ML 100 ML IV (10:43)
--- NOTE | 2019-08-11 11:30 | COLBX_PTH ---
PATIENT: SIN MARSHALL LOC: EN U#:[id number] AGE/SX: 59/F ROOM: RE08/11/[address]: Dr. Jerri Valverde MD : 1960 BED: DIS: 08/11/2019 SPEC #: [id number] RECD: 08/11/19 12:13 STATUS: SERA SHERRY #: [id number] KRISTIN: 08/11/19 11:[address]: Jerri Valverde DEPT: SURGICAL PATHOLOGY RECD BY: Maryellen Jacques ENTERED: 08/11/19 13:51 SP TYPE: COLON BX JONATHAN DR: Dr. Kyle Monterroso MD Tissues: A - Transverse colon B - Descending colon C - Sigmoid colon biopsy D - Rectum, NOS E - Rectum, NOS Procedures: Surgery Specimen Level IV HEADER OPERATION: Colonoscopy (MAC) PRE-OP DIAGNOSIS: Diarrhea TISSUE SUBMITTED: A. Transverse colon, random biopsy, B. Descending colon, random biopsy, C. Sigmoid colon, random biopsy, D. Rectal polyp biopsy, E. Rectal, random biopsy MICROSCOPIC DIAGNOSIS A. Transverse colon, random biopsy: No pathologic change. B. Descending colon, random biopsy: No pathologic change. C. Sigmoid colon, random biopsy: No pathologic change. D. Rectal polyp, biopsy: Fragments of hyperplastic polyp. E. Rectum, random biopsy: No pathologic diagnosis. AM:jennifer 08/12/19 MICROSCOPIC DESCRIPTION Slides are reviewed. GROSS DESCRIPTION A - Received in fixative is one container labeled with the patient's name and designated transverse colon biopsy. The specimen consists of one irregular fragment of light ornelas soft tissue that measures 0.6 x 0.2 x 0.1 cm. The specimen is totally submitted in one cassette. B - Received in fixative is one container labeled with the patient's name and designated descending colon biopsy. The specimen consists of one irregular fragment of light ornelas soft tissue that measures 0.3 x 0.3 x 0.1 cm. The specimen is totally submitted in one cassette. C - Received in fixative is one container labeled with the patient's name and designated sigmoid colon biopsy. The specimen consists of one irregular fragment of light ornelas soft tissue that measures 0.3 x 0.2 x 0.1 cm. The specimen is totally submitted in one cassette. D - Received in fixative is one container labeled with the patient's name and designated rectal polyp biopsy. The specimen consists of two irregular fragments of light ornelas soft tissue that in aggregate measure 0.4 x 0.2 x 0.1 cm. The specimen is totally submitted in one cassette. E - Received in fixative is one container labeled with the patient's name and designated rectal biopsy. The specimen consists of one irregular fragment of light ornelas soft tissue that measures 0.4 x 0.2 x 0.1 cm. The specimen is totally submitted in one cassette. / SJ:rg 08/11/19 TC:5 CPT: 84420 x5
[2019-08-11 11:59] VITALS: BP 101/65; BP 114/72; PULSE 67; RESP 16; TEMP 36.6; O2SAT 97
--- NOTE | 2019-08-11 12:02 | OP.ENDO_ITS ---
08/11/2019 Kyle Monterroso MD Re : Colonoscopy procedure for Chanda Haq Dear Dr. Monterroso This procedure was performed on Sunday, August 11, 2019. My impressions and recommendations are as follows: Impressions : - Hemorrhoids found on perianal exam. - One less than 5 mm polyp in the rectum, removed with a cold biopsy forceps. Resected and retrieved. - Diverticulosis in the sigmoid colon. - Non-bleeding hemorrhoids. - The examination was otherwise normal. - Four random biopsies were obtained in the rectum, in the sigmoid colon, in the descending colon and in the transverse colon. Recommendations : - Discharge patient to home. - Resume previous diet. - Continue present medications. - Await pathology results. - Repeat colonoscopy in 5-10 years for surveillance based on pathology results. My findings are described in the full procedure note, which is enclosed. If I can be of further assistance, please feel free to contact me at Doctor phone number(s): , Work: . Sincerely, MD Jerri Sarmiento MD 08/11/2019 12:01:28 PM This report has been signed electronically.
[2019-08-11 12:05] VITALS: BP 106/70; BP 114/72; PULSE 64; RESP 16; O2SAT 94
[2019-08-11 12:10] VITALS: BP 100/71; BP 114/72; PULSE 67; RESP 16; O2SAT 97
[2019-08-11 12:15] VITALS: BP 108/70; BP 114/72; PULSE 65; RESP 16; TEMP 37.1; O2SAT 97
[2019-08-11 12:44] VITALS: BP 114/72
== END 2019-08-11 12:47 | disposition home or self-care (01) ==
LOC: EN 10:17 → AC 10:18
PROVIDERS: Family Provider Family Medicine; PCP Family Medicine; Referring Provider Family Medicine; Visit Provider Surgery
PROC: 0DJD8ZZ Inspection of Lower Intestinal Tract, Via Natural or Artificial Opening Endoscopic (ICD-10-PCS; CPT 45378; principal; 2019-08-11 11:25)
DX: R19.7 Diarrhea, unspecified (principal); K62.1 Rectal polyp; K64.0 First degree hemorrhoids; K57.30 Diverticulosis of large intestine without perforation or abscess without bleeding; K64.9 Unspecified hemorrhoids; K58.9 Irritable bowel syndrome, unspecified; Z87.891 Personal history of nicotine dependence; Z88.1 Allergy status to other antibiotic agents; Z88.5 Allergy status to narcotic agent
CPT/HCPCS: 45380; 88305; J7120; J2405

== ENCOUNTER 2019-10-06 20:57 | Emergency (ER) | payer MEDICARE, SELFPAY ==
[2019-10-06 20:58] VITALS: BP 146/96; PULSE 83; RESP 17; TEMP 36.3; O2SAT 97; BMI 33.4
[2019-10-06 21:43] LABS: Bacteria 0 SEEN /hpf (None Seen); Red Blood Cells-Urine 0 SEEN /hpf (0-5)
[2019-10-06 21:59] LABS: Color, Urine Yellow (Yellow); Glucose, Dipstick Normal (Normal); Ketone-Dipstick 5 mg/dl (Negative); Leukocyte Esterase-Dipstick 100 /ul (Negative); Nitrite-Dipstick Negative (Negative); Occult Blood-Urine 50 /ul (Negative); Protein-Dipstick 30 mg/dl (Negative); Specific Gravity, Urine 1.025 (1.002-1.030); Urine Bilirubin Dipstick Negative (Negative); Urine Clarity Sl. Cloudy (Clear); Urine Urobilinogen 1 mg/dl (Normal)
[2019-10-06 22:02] LABS: Mucous, Urine 1+ /hpf (<or=2+); Squamous Epithelial Cells - UA 0-5 SEEN /hpf (5-10); White Blood Cells 10-25 SEEN /hpf (0-5)
--- NOTE | 2019-10-06 22:37 | ED.RN ---
PER DR GIBBONS PT IS NOT A SEPSIS PT.
--- NOTE | 2019-10-06 22:48 | ED.DCSUM_ITS ---
- ER Visit Summary Date of Service: 10/06/19 Chief Complaint: UTI History of Present Illness: The patient is a 59 F with UTI symptoms that started earlier this morning. She has pain and pressure in her bladder. She has some blood-tinged urine as well. No history of kidney stones. No current antibiotics. No fevers. Physical Examination: Afebrile and vital signs unremarkable. Patient appears uncomfortable but not toxic or in distress. He does have some suprapubic tenderness. No guarding or rebound. Very mild right-sided CVA tenderness. Otherwise exam unremarkable. Test Results: Urinalysis shows signs of infection. Cultures are pending. Emergency Department Course and Treatment: Previous culture showed mixed growth. Patient is not septic. Will treat with oral antibiotics. She also received Pyridium and naproxen. Follow-up with primary care to document resolution. Return for any new or worsening issues as she may need hospitalization, IV antibiotics, or further evaluation. Treatment Plan: As above Disposition: Discharge Impression: UTI, cystitis This note was generated with [employer] dictation software. It may contain incorrect words, spelling, and punctuation that were not noted in review of the chart prior to signing ED Disposition - Plan for ED Patient: Referrals: Kyle Monterroso MD [Primary Care Provider] -
--- NOTE | 2019-10-06 22:50 | ED.DEP ---
ED Disposition - Plan for ED Patient: Instructions: Bladder Infection, Female (Adult) Prescriptions: Cephalexin [Keflex] 500 mg PO Q6 #28 cap Prescription Printed Naproxen [Naprosyn] 500 mg PO BID PRN #20 tab Prescription Printed Phenazopyridine HCl [Pyridium] 200 mg PO TID #6 tab Prescription Printed Referrals: Kyle Monterroso MD [Primary Care Provider] -
[2019-10-06] MEDS: Cephalexin 250 MG Capsule 500 MG PO (22:57)
[2019-10-06] MEDS: Phenazopyridine 95 MG Tablet 190 MG PO (22:57)
[2019-10-06] MEDS: Naproxen 500 MG Tablet PO (22:58)
[2019-10-06 22:59] VITALS: BP 130/54; PULSE 82; RESP 16; O2SAT 96
== END 2019-10-06 23:00 | disposition home or self-care (01) ==
LOC: ED 21:41
PROVIDERS: Emergency Provider Emergency Medicine; Family Provider Family Medicine; PCP Family Medicine
DX: N30.90 Cystitis, unspecified without hematuria (principal)
CPT/HCPCS: 81001; 87086; 99283

== ENCOUNTER 2019-11-21 12:50 | Emergency (ER) | payer MEDICARE, SELFPAY ==
[2019-11-21 12:51] VITALS: BP 143/72; PULSE 77; RESP 16; TEMP 36.8; O2SAT 99; BMI 33.7
--- NOTE | 2019-11-21 12:59 | CT_ITS ---
STUDY: CT ABDOMEN AND PELVIS WITHOUT CONTRAST REASON FOR EXAM: Female, 59 years old. ABDOMINAL PAIN AND CRAMPING. PRIOR BLADDER SLING RADIATION DOSAGE (If Supplied By Facility): CTDIvol = ( 15.93 ) mGy, DLP = ( 784.17 ) mGycm TECHNIQUE: Transaxial images were obtained from the dome of the diaphragm to the symphysis pubis without oral contrast, and without intravenous contrast. Sagittal and coronal images were reconstructed. Individualized dose optimization techniques were used for this CT. COMPARISON: 06/04/2019 FINDINGS: Similar fibrotic changes in the lung bases. Nodule in the right lung base on image 15 is stable measuring 4 mm. The visualized portions of the heart are within normal limits. Normal liver. Normal gallbladder and extrahepatic biliary system. Normal spleen. Normal pancreas. Normal bilateral adrenal glands. Normal right kidney. Normal left kidney. Stable diverticulum arising from the posterior gastric fundus. No gastric wall thickening is seen. There is also a moderate-sized duodenal diverticulum, stable. Normal small intestine. There are multiple colonic diverticula consistent with diverticulosis. The appendix is visualized and appears normal. There is diffuse atherosclerotic calcification of the abdominal aorta, without a demonstrated aneurysm. Normal inferior vena cava. Normal retroperitoneum. Normal urinary bladder. Normal visualized uterus. Normal abdominal wall. There are diffuse degenerative changes of the visualized lumbar spine. CT/Abdomen/Pelvis without Cont IMPRESSION: 1. No hydronephrosis or urinary tract calcifications. No inflammatory process. 2. Stable 4 mm right lower lobe nodule. 3. Gastric fundal and duodenal diverticula, stable. Electronically Signed: Rosendo Salguero MD (Brooks) at 14:16 EST , Service support ,
--- NOTE | 2019-11-21 13:01 | ED.VISSUMM ---
- ER Visit Summary Date of Service: 11/21/19 Chief Complaint: Abdominal pain History of Present Illness: The patient is a 59 F who presents with abdominal pain. It started last night. She describes cramping in her suprapubic area. Does not radiate. She has no nausea, vomiting, diarrhea or constipation. Denies any urinary symptoms. No fevers. She does have a history of UTI and diverticulitis. She tried Tylenol at home without any relief. [facility] and they did a urinalysis and it was negative. She does have a bladder sling in place. Physical Examination: Vital signs reviewed. HEENT exam unremarkable. Heart is regular rate and rhythm without murmurs. Lungs are clear to auscultation. Abdomen is soft with suprapubic tenderness to palpation. There is no guarding or rebound tenderness. Extremities reveal no edema. Skin exam normal. Neurologic exam normal. Test Results: Laboratory studies normal except for chloride of 109. Urinalysis normal. CAT scan reveals chronic findings with no acute issues. Emergency Department Course and Treatment: The patient was given morphine and Zofran. She states that she still felt cramping in her suprapubic area so I gave her a dose of Bentyl. I see no acute causes for her pain. No signs of infection in her urine or in her abdomen. I feel the patient can be discharged with follow-up as an outpatient for further testing. I will give her Bentyl for home Treatment Plan: [] Disposition: Discharge Impression: Abdominal pain This note was generated with [employer] dictation software. It may contain incorrect words, spelling, and punctuation that were not noted in review of the chart prior to signing ED Disposition - Plan for ED Patient: Referrals: Kyle Monterroso MD [Primary Care Provider] -
[2019-11-21 13:16] LABS: Absolute Lymphocyte Count 2.68 X10^3/uL (0.83-4.51); Absolute Neutrophil Count 3.7 X10^3/uL (2.0-7.7); Basophil# 0.03 X10^3/uL; Basophil% 0.4 % (0-1); Eosinophil# 0.11 X10^3/uL; Eosinophils% 1.5 % (0-5); Hematocrit 38.8 % (37-47); Hemoglobin 12.3 g/dL (12.0-15.0); Lymphocyte # 2.68 X10^3/ul (4.0); Lymphocyte % 37.5 % (19-41); Mean Corp Hgb Conc 31.7 g/dL (32-36); Mean Corpuscular Hgb 28.6 pg (27.0-32.0); Mean Corpuscular Volume 90.2 fL (81-99); Mean Platelet Vol. 10.4 fl (6.2-12.0); Monocyte# 0.59 X10^3/uL; Monocyte% 8.3 % (0-10); NRBC Flagged by Analyzer 0 % (0-5); Neutrophil # 3.71 X10^3/uL (2.7-7.7); Platelet Count 300 K/mm3 (150-450); RBC Distribution Width CV 14.1 % (11.6-14.6); RBC Distribution Width SD 46.6 fl (35.1-43.9); White Blood Count 7.1 K/mm3 (4.4-11.0)
[2019-11-21] MEDS: Ondansetron 4 MG/2 ML Vial IV (13:16)
[2019-11-21] MEDS: Morphine 4 MG/ML Syringe IV (13:16)
[2019-11-21 13:36] LABS: AST(SGOT) 17 U/L (15-37); Alanine Aminotransfer ALT/SGPT 27 U/L (13-56); Albumin, Serum 3.9 g/dL (3.2-5.0); Alkaline Phosphatase 72 U/L (45-117); Anion Gap 4 (5-15); BUN 19 mg/dL (7-18); BUN/Creat Ratio 18.1 RATIO (10-20); Chloride 109 mmol/L (98-107); Creatinine, Serum 1.05 mg/dL (0.55-1.02); EST Glomerular Filtration Rate 57 mL/min (>60); Est Glom Filt Rate - Afr Amer 68 mL/min (>60); Estimated Creatinine Clearance 48.59 ml/min; Globulin 3.9 g/dL (2.2-4.2); Glucose 91 mg/dL (74-106); Potassium 3.9 mmol/L (3.5-5.1); Protein, Total 7.8 g/dL (6.4-8.2); Sodium Level 139 mmol/L (136-145)
[2019-11-21 14:11] LABS: Bacteria 0 SEEN /hpf (None Seen); Mucous, Urine 0 SEEN /hpf (<or=2+); Red Blood Cells-Urine 0 SEEN /hpf (0-5); Squamous Epithelial Cells - UA 0 SEEN /hpf (5-10); White Blood Cells 0 SEEN /hpf (0-5)
[2019-11-21 14:21] LABS: Color, Urine Straw (Yellow); Glucose, Dipstick Normal (Normal); Ketone-Dipstick Negative (Negative); Leukocyte Esterase-Dipstick Negative /ul (Negative); Nitrite-Dipstick Negative (Negative); Occult Blood-Urine Negative /ul (Negative); Protein-Dipstick Negative (Negative); Specific Gravity, Urine 1.015 (1.002-1.030); Urine Bilirubin Dipstick Negative (Negative); Urine Clarity Clear (Clear); Urine Urobilinogen Normal (Normal); Urine pH 6.5 (5.0 - 8.0)
[2019-11-21] MEDS: Dicyclomine 20 MG/2 ML Vial IM (14:43)
--- NOTE | 2019-11-21 14:48 | DCINST.ED_ITS ---
ED Disposition - Plan for ED Patient: Disposition: Home or Assisted Living Instructions: ABDOMINAL PAIN, Unknown Cause, (Female) Prescriptions: Dicyclomine HCl [Bentyl] 20 mg PO TIDAC #20 cap Transmission Status: Pending to [facility] Referrals: Kyle Monterroso MD [Primary Care Provider] - Additional Instructions: Your prescription was electronically transmitted to [facility]
[2019-11-21 15:25] VITALS: BP 123/84; PULSE 71; RESP 16; O2SAT 98
== END 2019-11-21 15:27 | disposition home or self-care (01) ==
PROVIDERS: Emergency Provider Emergency Medicine; Family Provider Family Medicine; PCP Family Medicine
DX: R10.30 Lower abdominal pain, unspecified (principal); J44.9 Chronic obstructive pulmonary disease, unspecified; K21.9 Gastro-esophageal reflux disease without esophagitis; Z87.440 Personal history of urinary (tract) infections; Z72.0 Tobacco use
CPT/HCPCS: 74176; 80053; 81001; 85025; 96372; 96374; 96375; 99283; A4216; J2405

== ENCOUNTER 2019-11-23 19:40 | Emergency (ER) | payer MEDICARE, SELFPAY ==
[2019-11-23 19:41] VITALS: BP 132/82; PULSE 76; RESP 16; TEMP 36.9; O2SAT 96; BMI 33.6
--- NOTE | 2019-11-23 21:26 | ED.DCSUM_ITS ---
- ER Visit Summary Date of Service: 11/23/19 Chief Complaint: Abdominal pain History of Present Illness: The patient is a [address] Monterroso in the [facility]. She reports that she has lower abdominal pain that began 3 days ago. It is a sharp, cramping pain. She states pain is 10 out of 10 in severity. Is worsened by movement. Is relieved by remaining still. She is taken Bentyl without relief. She denies any nausea or vomiting. She had one episode of watery diarrhea tonight. No blood in her stools or black tarry stools. She denies any dysuria or frequency. She denies any vaginal bleeding or discharge. Patient reports that she was here on November 21 and had the labs, urinalysis, and CT that were unremarkable. She has an appointment to see her claims manager tomorrow. She states that her primary care physician told her to come to the emergency department for pain medication if she was unable to sleep. Physical Examination: Vitals: Stable. Afebrile. General: Well-nourished and well-developed. Head: Normocephalic atraumatic. Neck: Supple, no lymphadenopathy. No JVD. Nontender. Cardiovascular: Regular rate and rhythm. No murmurs. Respiratory: No respiratory distress. Clear to auscultation bilaterally. Abdominal: Soft, moderate diffuse tenderness palpation over her lower abdomen, nondistended, normal bowel sounds. No guarding, rebound, or peritoneal signs. Back: Nontender. Extremities: Nontender, no edema. Skin: Normal color, no rash. Neurologic: Alert and oriented ?3. Cranial nerves II through XII are intact. Normal strength and sensation. Psych: Normal affect. Test Results: Patient refused blood work, urine, or imaging. I reviewed her prior results 2 days ago and they were unremarkable. Emergency Department Course and Treatment: Patient was given a dose of morphine IM. She is resting comfortably. Treatment Plan: Patient be discharged prescription for 6 [place]. Instructed to follow-up with [facility] tomorrow as previously scheduled. Follow- up Dr. Monterroso in 1 to 2 days if not improving. Return to the emergency department for any worsening symptoms. Disposition: To home in improved and stable condition. Impression: 1. Pelvic pain, uncertain cause. This note was generated with [employer] software. It may contain incorrect words, spelling, and punctuation that were not noted in review of the chart prior to signing ED Disposition - Plan for ED Patient: Disposition: Home or Assisted Living Instructions: ABDOMINAL PAIN, Unknown Cause, (Female) Prescriptions: Hydrocodone Bitart/Apap 5-325 [[place] 5MG-325MG] 1 tab PO Q4H PRN PRN 2 Days #6 tab PRN Reason: Pain Prescription Printed Referrals: Kyle Monterroso MD [Primary Care Provider] - 1-2 Days if not improving Additional Instructions: Follow up with [facility] tomorrow as scheduled.
[2019-11-23] MEDS: Morphine 4 MG/ML Syringe 8 MG IM (22:05)
[2019-11-23 22:06] VITALS: BP 120/72; PULSE 65; PULSE 66; RESP 16; O2SAT 97; O2SAT 98
== END 2019-11-23 22:37 | disposition home or self-care (01) ==
PROVIDERS: Emergency Provider Emergency Medicine; Family Provider Family Medicine; PCP Family Medicine
DX: R10.2 Pelvic and perineal pain (principal); E03.9 Hypothyroidism, unspecified; E78.00 Pure hypercholesterolemia, unspecified; Z79.899 Other long term (current) drug therapy
CPT/HCPCS: 96372; 99282

== ENCOUNTER 2020-01-10 18:23 | Emergency (ER) | payer MEDICARE, SELFPAY ==
[2020-01-10 18:23] VITALS: BP 142/79; PULSE 79; RESP 18; TEMP 37.1; O2SAT 98; BMI 33.9
--- NOTE | 2020-01-10 18:54 | ED.VISSUMM ---
- ER Visit Summary Date of Service: 01/10/20 Chief Complaint: Sinus drainage History of Present Illness: The patient is a 59 F history of hypothyroidism prior TIA and high cholesterol. Patient states she has been dealing with sinus drainage and infections for weeks to months. She is seeing Dr. Arben De Los Santos now from ENT who has a scheduled CAT scan on her sinuses being done in January. She just complaining of pain. She denies headache. She denies purulent discharge. She is been on antibiotics and steroids. And nasal sprays. Physical Examination: Female no acute distress vital signs stable afebrile. H EENT exam pupils are reactive light extra ocular motion intact. No facial droop. No facial swelling. TMs normal. There is no frontal or maxillary sinus tenderness. Currently there is no purulent drainage from her nose. No blood. She has no teeth. The posterior pharynx is normal. Neck nontender she has 1 anterior cervical lymph node that is enlarged. Not significantly tender. Trachea midline. Lungs clear to auscultation. Heart regular rate and rhythm no murmur. Abdomen soft nontender. Extremities moves all 4. Neurologic exam normal. Test Results: None Emergency Department Course and Treatment: Patient is on antibiotics. She is seeing ENT. She has an outpatient CAT scan scheduled. Explained otherwise a much I can offer her today. She was hoping I give her something for pain. I do not think she needs narcotic prescription. She will be given 2 [place] here. She states she has a ride home. Treatment Plan: Motrin for pain. Follow-up with her ear nose and throat doctor. Disposition: Discharge Impression: Nasal drainage Cervical lymphadenopathy This note was generated with [employer] dictation software. It may contain incorrect words, spelling, and punctuation that were not noted in review of the chart prior to signing ED Disposition - Plan for ED Patient: Referrals: Kyle Monterroso MD [Primary Care Provider] -
--- NOTE | 2020-01-10 19:01 | ED.DEP ---
ED Disposition - Plan for ED Patient: Disposition: Home or Assisted Living Referrals: Kyle Monterroso MD [Primary Care Provider] - As Needed Arben Durham MD [STAFF PHYSICIAN] - As Needed Additional Instructions: Motrin for pain. Follow-up with your ENT doctor. Follow-up with your Scheduled CAT scan.
[2020-01-10 19:04] VITALS: RESP 16
[2020-01-10] MEDS: HYDROcodone Bitartrate/Apap 5/325 Tablet PO (19:06)
[2020-01-10 19:07] VITALS: RESP 16
== END 2020-01-10 19:11 | disposition home or self-care (01) ==
LOC: ED 19:08
PROVIDERS: Emergency Provider Emergency Medicine; PCP Family Medicine
DX: J34.89 Other specified disorders of nose and nasal sinuses (principal); R59.0 Localized enlarged lymph nodes; Z86.73 Personal history of transient ischemic attack (TIA), and cerebral infarction without residual deficits
CPT/HCPCS: 99283

== ENCOUNTER → 2020-01-17 | Outpatient (CLI) | payer MEDICARE, SELFPAY ==
[2020-01-10 18:23] VITALS: BMI 33.9
--- NOTE | 2020-01-17 13:06 | CT_ITS ---
STUDY: CT MAXILLOFACIAL SINUSES REASON FOR EXAM: Female, 59 years old. SINUSITIS, NATHANIEL PROTOCOL RADIATION DOSAGE (If Supplied By Facility): CTDIvol = ( 33.06 ) mGy, DLP = ( 891.70 ) mGycm TECHNIQUE: The patient was scanned in a multi detector CT scanner. High resolution axial imaging was performed without the administration of intravenous contrast material. Sagittal and coronal images were reconstructed. Individualized dose optimization techniques were used for this CT. COMPARISON: None. 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 In fact, there is no right frontal sinus. Left frontal sinus shows no mucosal inflammatory disease. ETHMOIDAL SINUSES: Normal aeration. Scattered areas of mild mucosal thickening. No air-fluid levels. MAXILLARY SINUSES: No air-fluid levels. Scattered areas of mild mucosal thickening and/or mucous retention cysts along the inferior aspects of both maxillary sinuses. SPHENOIDAL SINUSES: Normal aeration, without mucosal inflammatory disease. There is patency of the bilateral maxillary infundibuli with normal uncinate processes, ethmoid bullae, and hiatus semilunaris. There is a sunday bullosa of the right middle turbinate. Normal bilateral inferior turbinates. There is a left sided nasal septal deviation, but without a nasal septal spur. There is patency of the bilateral nasal airways. The visualized osseous structures are normal. The visualized bilateral orbital contents are normal. CT/Sinus/Facial Bone IMPRESSION: No evidence for acute sinusitis. Hypodevelopment of the frontal sinuses. Mild patchy mucosal thickening in the ethmoid air cells and both maxillary sinuses. Electronically Signed: Faheem Vieira MD at 16:44 EST , Service support ,
== END | disposition home or self-care (01) ==
LOC: CT 13:05
PROVIDERS: PCP Family Medicine; Referring Provider Otolaryngology; Visit Provider Otolaryngology
DX: J32.9 Chronic sinusitis, unspecified (principal)
CPT/HCPCS: 70486

== ENCOUNTER → 2020-06-27 09:40 | Outpatient (CLI) | payer MEDICARE, SELFPAY | PROVIDERS: PCP Family Medicine | DX: J02.9 Acute pharyngitis, unspecified (principal); Z20.828 Contact with and (suspected) exposure to other viral communicable diseases | CPT/HCPCS: 87635; 94799; U0003 ==

== ENCOUNTER 2020-11-30 13:30 | Outpatient (RCR) | payer MEDICARE, MEDICAID, SELFPAY ==
--- NOTE | 2020-11-02 12:58 | HP.PTEVAL ---
Patient's Visit Information SIN MARSHALL is a 60 year old F referred to Physical Therapy by Dr. Nathan Brooks MD with a diagnosis of Left TKR. Date of Evaluation: 11/02/20 Physical Therapist: Enma Benites DPT - Visit Plan Frequency: 2x /Week Duration: 4 Weeks Plan: Left TKR 10/18/2020- focus on LE strength and ROM- functional mobility- gentle for ROM - Subjective Left TKR by Dr. Brooks 10/18/2020- stayed over night in the hospital then went home. Single story home with 3 stairs with a HR and uses crutches to go in/out- no problems navigating- has help. She reports that she has been walking with a walker for the last two years. They have x-rayed her ankles and reports that she has floppy ankles and that makes her prone to falling. They cemented her knee in place due to her soft bones. They took x-rays the other day and everything looks great. She is still on pain medication. She was going to [place] for PT and she thought they were too rough She has pain in the back of her knee and thinks she over stretched the knee. Woke her up last night 10/10 pain. Agg: movement Eases: ice, pain medication, She is still sleeping in her reclyner. Is doing exercises every morning and night. PMhx: docusate sodium, hydrocodone, albuterol, aripiprazole, buspirone, compound prescription, CPAP, dicyclomine, duloxetine, ergocalciferol, fenofibrate, lactase, lactobacillus, levothyroxine, ondansetron, pantoprazole, ropinirole, osuvastatin, sucralfate, sumatriptan, topiramate, topomax, tylenol arthritis, asprin. - Objective Posture: FH, RS, increased kyphosis- can correct with verbal cues. Gait: antalgic-rollerator- flat foot progression due to lack of ROM and pain. Stairs: non recip with 2 HR. HR/TR: able with reports of pain in the posterior knee with HR. Balance: weight shift but unable to SLS. TKE standing does obtain full ROM. TU seconds with rollerator. Girth: patella: 46 cm 6 above: 64cm. ROM: Hip: flexion: 85 degrees extn: 15 degrees, Knee Flexion: 95 degrees Extn: 0 degrees. Strength: Ankle: 5/5 with discomfort. Knee: flexion:21.3, extn: 7.4 Hip: flexion: 5.0 Extn: 23. Flex: HS: mild, Gastroc: moderate. Palpation: tender along medial and lateral joint line and posterior knee - Goals Goal 1:: Patient will be I with HEP and progression Goal Time Frame: 4-6 Weeks Goal 2:: Patient will ambulate >300 feet with a normalized gait pattern with LRD Goal Time Frame: 4-6 Weeks Goal 3:: Patient will asc/desc 8 stairs recip with 1 HR Goal Time Frame: 4-6 Weeks Goal 4:: Patient will demo 0-120 degrees in the right knee Goal Time Frame: 4-6 Weeks - Rehabilitation Potential Physical Therapy Diagnosis: Patient presents with hypomobility- she has decreased ROM, strength, flex and muscular endurance s/p left TKR leading to abnormal gait pattern and difficulty with ADL's. Rehabilitation Potential: Good - Anticipated Interventions Patient/Client Instruction: Educate patient on: Benefits of Fitness Program Therapeutic Exercise to Include: Strength training, Endurance training, Balance training, Agility training, Body mechanics, Postural training, Flexibilty training, Gait and locomotor training, Neuromotor development, Passive ROM, Active ROM, Dynamic Lumbar Stabilization, Scapular Strength/Stabilization For the Purpose of:: To improve muscle performance and motor function TENS: Yes Cryotherapy (ice pack, ice massage): Yes Thermo therapy (hot pack): Yes Ultrasound (thermal/non thermal): No Thank you for the opportunity to evaluate your patient. For Medicare and Medicare HMO plans, please review the plan of care and approve it. It will need to be FAXED BACK to us at [phone] for Medicare purposes. For Medicare only, by signing this I certify the plan of care. Please let me know if there are questions or concerns regarding this plan of care. Physician Signature: Date:
--- NOTE | 2020-11-30 14:56 | HP.PTDCSUM ---
It has been my pleasure to treat SIN MARSHALL referred by Dr. Nathan Brooks MD, with the diagnosis of Left TKR for a total of 8 visit(s). Discharge Date: Please see the following information for a summary of their discharge status. Subjective: Patient reports that she saw MD on Friday- he is happy with her progress. She had a bone density and they reported osteopenia of the spine and put on calcium. The MD that ordered the test wants her to walk. So she is walking [facility]- Dr. Brooks told her not to push her leg to much due to her pain and the healing is still happening. She wants to be able to get down to dust- getting in/out of the bathtub. She is not walking with the walker in the house but outside she is using the walker. On the incision she is an 8/10. L knee Pain Intensity (Out of 10): 8 % Improvement: 75 Objective/Function: Posture: FH, RS, increased kyphosis- can correct with verbal cues. Gait: without rollerator decreased speed. Stairs: ascend recip with 2 HR, descend non recip unitl last step and was able to step down increased fear and refused to perform recip pattern for entire flight. TU.84 seconds with no AD. Girth: patella: 42 cm 6 above: 64cm. ROM: , Knee Flexion: 115 degrees Extn: 0 degrees. Strength: Knee: flexion:23.2, extn: 16.3 Hip: flexion: 20.2 Extn: 26.6. Palpation: tender with deep presssure along incision Goal 1:: Patient will be I with HEP and progression Goal Progress: Goal Met Goal 2:: Patient will ambulate >300 feet with a normalized gait pattern with LRD Goal Progress: Progressing Goal 3:: Patient will asc/desc 8 stairs recip with 1 HR Goal Progress: Progressing Goal 4:: Patient will demo 0-120 degrees in the right knee Goal Progress: Progressing Plan: Left TKR 10/18/2020- focus on LE strength and ROM- functional mobility- gentle for ROM. 11/30: discharge with HEP If there are questions or concerns regarding this patient's physical therapy, please feel free to call me at [phone]. Thank you for the referral of this patient. Sincerely, Enma Benites DPT
== END 2020-11-30 19:00 | disposition home or self-care (01) ==
LOC: PT 13:30
PROVIDERS: PCP Family Medicine; Referring Provider Orthopaedic Surgery; Visit Provider Orthopaedic Surgery
DX: Z47.1 Aftercare following joint replacement surgery (principal); Z96.652 Presence of left artificial knee joint; M17.12 Unilateral primary osteoarthritis, left knee
CPT/HCPCS: 97110; 97162; 97164

== ENCOUNTER 2020-12-16 20:11 | Emergency (ER) | payer MEDICARE, MEDICAID, SELFPAY ==
[2020-12-16 20:12] VITALS: BP 145/96; PULSE 91; RESP 15; TEMP 35.6; O2SAT 98; BMI 34.3
[2020-12-16 21:25] LABS: Mucous, Urine 0 SEEN /hpf (<or=2+)
[2020-12-16 21:56] LABS: Color, Urine Yellow (Yellow); Glucose, Dipstick Normal (Normal); Ketone-Dipstick Negative (Negative); Leukocyte Esterase-Dipstick 500 /ul (Negative); Nitrite-Dipstick Positive (Negative); Occult Blood-Urine 250 /ul (Negative); Protein-Dipstick 500 mg/dl (Negative); Specific Gravity, Urine 1.015 (1.002-1.030); Urine Bilirubin Dipstick 6 mg/dL (Negative); Urine Clarity Sl Cldy (Clear); Urine Urobilinogen 8 mg/dl (Normal)
--- NOTE | 2020-12-16 21:57 | ED.VISSUMM ---
- ER Visit Summary Date of Service: 12/16/20 Chief Complaint: UTI History of Present Illness: The patient is a 60 F with a possible UTI. She reports burning and frequency. Similar to prior UTIs. No back pain or fevers. Does have some suprapubic tenderness. No GI symptoms. Physical Examination: Afebrile and vital signs unremarkable. Suprapubic tenderness to palpation. No guarding or rebound. Otherwise exam unremarkable. Test Results: Urinalysis pending. Emergency Department Course and Treatment: Urinalysis performed. Patient will be treated with antibiotics for UTI coverage. Follow-up with primary care for recheck. Return for any new or worsening issues. Treatment Plan: As above Disposition: Discharge Impression: UTI cystitis This note was generated with [employer] dictation software. It may contain incorrect words, spelling, and punctuation that were not noted in review of the chart prior to signing ED Disposition - Plan for ED Patient: Referrals: Kyle Monterroso MD [Primary Care Provider] -
--- NOTE | 2020-12-16 21:58 | ED.DEP ---
ED Disposition - Plan for ED Patient: Instructions: ED Bladder Infection, Female (Adult) Prescriptions: Cephalexin [Keflex] 500 mg PO Q6 #28 cap Prescription Printed Referrals: Kyle Monterroso MD [Primary Care Provider] -
[2020-12-16 22:01] LABS: Bacteria RARE /hpf (None Seen); Red Blood Cells-Urine 50-100 SEEN /hpf (0-5); Renal Epithelial Cells 0-5 SEEN /hpf (0-5); Squamous Epithelial Cells - UA 0-5 SEEN /hpf (5-10); White Blood Cells 50-100 SEEN /hpf (0-5)
[2020-12-16 22:02] LABS: Amorphous Sediment 1+ PHOS
[2020-12-16] MEDS: Cephalexin 250 MG Capsule 500 MG PO (22:22)
[2020-12-16 22:23] VITALS: PULSE 79; RESP 18; O2SAT 98
== END 2020-12-16 22:41 | disposition home or self-care (01) ==
PROVIDERS: Emergency Provider Emergency Medicine; PCP Family Medicine
DX: N30.90 Cystitis, unspecified without hematuria (principal); E78.00 Pure hypercholesterolemia, unspecified; Z87.440 Personal history of urinary (tract) infections; Z87.891 Personal history of nicotine dependence; Z79.899 Other long term (current) drug therapy
CPT/HCPCS: 81001; 87077; 87086; 87088; 87186; 99283

== ENCOUNTER 2022-02-03 17:36 | Emergency (ER) | payer MEDICARE, MEDICAID, SELFPAY ==
[2022-02-03 17:38] VITALS: BP 125/76; PULSE 81; RESP 16; TEMP 35.8; O2SAT 99; BMI 36.8
[2022-02-03 17:58] LABS: Mucous, Urine 0 SEEN /hpf (<or=2+); Red Blood Cells-Urine 0 SEEN /hpf (0-5); Squamous Epithelial Cells - UA 0 SEEN /hpf (5-10)
[2022-02-03 18:11] LABS: Color, Urine Yellow (Yellow); Glucose, Dipstick Normal (Normal); Ketone-Dipstick Negative (Negative); Leukocyte Esterase-Dipstick 25 /ul (Negative); Nitrite-Dipstick Negative (Negative); Occult Blood-Urine Negative /ul (Negative); Protein-Dipstick Negative (Negative); Specific Gravity, Urine 1.015 (1.002-1.030); Urine Bilirubin Dipstick Negative (Negative); Urine Clarity Clear (Clear); Urine Urobilinogen Normal (Normal)
[2022-02-03 18:19] LABS: Bacteria 1+ /hpf (None Seen); White Blood Cells 0-5 SEEN /hpf (0-5)
--- NOTE | 2022-02-03 18:41 | EDS_ITS ---
HPI HPI - Female History of Present Illness Chief Complaint: Complaint Narrative Narrative: 60-year-old female presenting with dysuria and urinary frequency. She is not had a fever, nausea, vomiting. She states he has a history of UTI in the past. She states that she did a home urinalysis which turned purple and this was positive for urinary tract infection. Patient does have some lower back pain on the left. She does not recall injuring it. It hurts worse with movement. She does not have history of kidney stones. PFSH PFS Medical History Abdominal pain Acid reflux Anemia Anxiety Arthritis Constipation Depression Diarrhea Diverticulitis Hypothyroid IBS (irritable bowel syndrome) Lipidemia Nausea and vomiting Sleep apnea SOB (shortness of breath) Stroke Home Medications aripiprazole 10 mg PO DAILY 10/01/16 [History Last Taken Unknown] duloxetine 30 mg PO DAILY 10/01/16 [History Last Taken Unknown] levothyroxine 137 mcg PO MOTUWETHFRSA 10/01/16 [History Last Taken 08/11/19 07:30] rosuvastatin 40 mg PO QHS 10/01/16 [History Last Taken Unknown] sumatriptan succinate 50 mg PO .X1 PRN 10/01/16 [History Last Taken Unknown] omega 8-gcr-mxv-fish oil 2,000 mg PO DAILY 11/21/16 [History Last Taken Unknown] pantoprazole 40 mg PO DAILY 11/29/17 [History Last Taken 08/11/19 07:30] ondansetron 4 mg PO Q8H PRN PRN 01/11/18 [History Last Taken Unknown] topiramate 50 mg PO BID 01/11/18 [History Last Taken 08/11/19 07:30] albuterol sulfate 2 puff INHALATION Q4H PRN PRN 06/04/19 [History Last Taken Unknown] baclofen 5 mg PO TID PRN 06/04/19 [History Last Taken Unknown] lactase 3,000 unit PO TIDCM 06/04/19 [History Last Taken Unknown] fenofibrate 54 mg tablet 54 mg PO DAILY 06/14/19 [History Last Taken Unknown] melatonin 10 mg capsule 20 mg PO QHS 06/14/19 [History Last Taken Unknown] lactobacillus combination no.9 4 billion cell capsule 4,000 mmu cells PO DAILY 07/29/19 [History Last Taken Unknown] dicyclomine 20 mg PO TIDAC #20 cap 11/21/19 [Rx Last Taken Unknown] cephalexin 500 mg PO Q6 #28 cap 12/16/20 [Rx Last Taken Unknown] hydrocodone-acetaminophen 1 tab PO Q6H PRN PRN 12/16/20 [History Last Taken Unknown] levothyroxine 137 mcg PO CARMEN 12/16/20 [History Last Taken Unknown] cephalexin 500 mg PO Q12 #14 cap 02/03/22 [Rx Last Taken Unknown] phenazopyridine [Pyridium] 100 mg PO TID PRN #6 tab 02/03/22 [Rx Last Taken Unknown] Allergy/AdvReac Type Severity Reaction Status Date / Time metronidazole [From Flagyl] Allergy Nausea/Vom/ Verified 02/03/22 17:38 Diarrhea benztropine [From Cogentin] AdvReac Other Verified 02/03/22 17:38 esomeprazole [From Nexium] AdvReac Nausea Verified 02/03/22 17:38 oxybutynin [From Ditropan] AdvReac Nausea/Vom/ Verified 02/03/22 17:38 Diarrhea oxycodone [From Percocet] AdvReac Nausea Verified 02/03/22 17:38 Surgical History history bladder sling history left ulnar nerve repair History of arthroscopy of left knee Social History Smoking Status: Former smoker alcohol intake: never substance use type: does not use ROS ROS ED Constitutional Constitutional ED: Denies chills or fever(s) Eyes Eyes: Denies blurry vision or change in vision ENT ENT ED: Denies rhinorrhea or sore throat Cardiovascular Cardiovascular: Denies chest pain or palpitations Respiratory/Chest Respiratory/Chest: Denies cough or dyspnea Gastrointestinal Gastrointestinal: Denies abdominal pain, nausea or vomiting Genitourinary Genitourinary ED: Reports dysuria and urinary frequency Musculoskeletal Musculoskeletal: Reports other Details: Left lower back pain ; Denies arthralgias or myalgias Integumentary Reports rash Neurologic Neurologic: Denies headache(s) Psychiatric Psychiatric: Denies anxiety or depression EXAM Physical Exam Const Vital Signs: 02/03/22 17:38 Temperature 96.5 F L Temperature Source Temporal Pulse Rate 81 Respiratory Rate 16 Blood Pressure 125/76 H Blood Pressure Mean 92 Pulse Ox 99 Oxygen Delivery Method Room Air Positive well nourished General Appearance ED: NAD; Negative for pallor HEENT Reports moist mucous membranes Negative for trauma Eyes PERRL and EOMs intact bilaterally Resp normal respiratory effort and clear to auscultation bilaterally Cardio regular rate and regular rhythm Back/Spine Back/Spine Narrative: Tenderness palpation left lumbar paraspinal musculature. No midline spinal deformity, step-off. No CVA tenderness on the left. Neuro oriented x3 Sensorium / Orientation: alert Psych mental status grossly normal Skin General Skin Exam: Negative for jaundice or pallor MDM MDM MDM Narrative Medical decision making narrative: Obtain a urinalysis from the patient who is symptomatic. I stated that it did not look to be a clear UTI, and she stated that last time this happened they told her that and the culture came back as positive for E. coli. She wishes to be treated symptomatically. She states that Keflex works for her. She be given the first dose of this in the emergency room as well as Pyridium. She is given a prescription for both. She can return precautions. Urine culture is pending. Impression: 1. UTI Lab Data Labs: Laboratory Results - last 24 hr 02/03/22 17:55 Urine Color Yellow Urine Clarity Clear Urine pH 7.0 Ur Specific [place] 1.015 Urine Protein Negative Urine Glucose (UA) Normal Urine Ketones Negative Urine Occult Blood Negative Urine Nitrite Negative Urine Bilirubin Negative Urine Urobilinogen Normal Ur Leukocyte Esterase 25 H Urine RBC 0 SEEN Urine WBC 0-5 SEEN Ur Squamous Epith Cells 0 SEEN Urine Bacteria 1+ Urine Mucus 0 SEEN Discharge Plan Triage Chief Complaint: Complaint ED Provider: Nikunj Carpenter Dx/Rx/DC Orders Instructions: ED CYSTITIS Female Adult Prescriptions: New cephalexin 500 mg capsule 500 mg PO Q12 Qty: 14 RF: 0 phenazopyridine [Pyridium] 100 mg tablet 100 mg PO TID PRN (Reason: pain) Qty: 6 RF: 0 No Action melatonin 10 mg capsule 20 mg PO QHS RF: 0 fenofibrate 54 mg tablet 54 mg PO DAILY RF: 0 Adult 50 Plus Probiotic 4 billion cell capsule 4,000 mmu cells PO DAILY RF: 0 sumatriptan succinate 50 MG tablet 50 mg PO .X1 PRN RF: 0 levothyroxine 125 MCG tablet 137 mcg PO MOTUWETHFRSA RF: 0 aripiprazole 10 MG tablet 10 mg PO DAILY RF: 0 rosuvastatin 40 MG tablet 40 mg PO QHS RF: 0 duloxetine 60 MG capsule 30 mg PO DAILY RF: 0 omega 6-wtf-zbx-fish oil 500 MG capsule,delayed release(DR/EC) 2,000 mg PO DAILY RF: 0 pantoprazole 40 MG tablet 40 mg PO DAILY RF: 0 ondansetron 4 MG tablet 4 mg PO Q8H PRN PRN (Reason: Nausea) RF: 0 topiramate 25 MG tablet 50 mg PO BID RF: 0 baclofen 10 MG tablet 5 mg PO TID PRN (Reason: Muscle Spasm) RF: 0 lactase 3,000 UNIT tablet 3,000 unit PO TIDCM RF: 0 albuterol sulfate 1 INHALER inhaler 2 puff inhalation Q4H PRN PRN (Reason: Wheezing) RF: 0 dicyclomine 10 MG capsule 20 mg PO TIDAC Qty: 20 RF: 0 levothyroxine 137 MCG tablet 137 mcg PO CARMEN RF: 0 hydrocodone-acetaminophen 1 TABLET tablet 1 tab PO Q6H PRN PRN (Reason: Pain) RF: 0 cephalexin 500 MG capsule 500 mg PO Q6 Qty: 28 RF: 0 Primary Care Provider: Kyle Monterroso Referrals: Kyle Monterroso MD [Primary Care Provider] - Disposition Disposition: Home, Self Care
[2022-02-03] MEDS: Cephalexin 250 MG Capsule 500 MG PO (18:46)
[2022-02-03] MEDS: Phenazopyridine 95 MG Tablet 190 MG PO (18:46)
[2022-02-03 18:47] VITALS: PULSE 74; RESP 16
== END 2022-02-03 18:48 | disposition home or self-care (01) ==
PROVIDERS: Emergency Provider Student in an Organized Health Care Education/Training Program; PCP Family Medicine; Visit Provider Student in an Organized Health Care Education/Training Program
DX: N39.0 Urinary tract infection, site not specified (principal); Z87.891 Personal history of nicotine dependence; Z86.73 Personal history of transient ischemic attack (TIA), and cerebral infarction without residual deficits
CPT/HCPCS: 81001; 87077; 87086; 87088; 87186; 99282

== ENCOUNTER 2022-04-19 13:23 | Emergency (ER) | payer MEDICARE, MEDICAID, SELFPAY ==
[2022-04-19 13:24] VITALS: BP 144/85; PULSE 75; RESP 17; TEMP 36.4; O2SAT 98; BMI 36.1
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
[2022-04-19 16:36] VITALS: BP 132/74; PULSE 72; RESP 15; O2SAT 98
== END 2022-04-19 16:37 | disposition home or self-care (01) ==
PROVIDERS: Emergency Provider Emergency Medicine; PCP Family Medicine; Visit Provider Emergency Medicine
DX: S16.1XXA Strain of muscle, fascia and tendon at neck level, initial encounter (principal); S40.011A Contusion of right shoulder, initial encounter; V43.63XA Car passenger injured in collision with pick-up truck in traffic accident, initial encounter; W22.12XA Striking against or struck by front passenger side automobile airbag, initial encounter; Y93.89 Activity, other specified; Y99.8 Other external cause status; Y92.410 Unspecified street and highway as the place of occurrence of the external cause; E03.9 Hypothyroidism, unspecified; K21.9 Gastro-esophageal reflux disease without esophagitis; Z79.899 Other long term (current) drug therapy; Z86.73 Personal history of transient ischemic attack (TIA), and cerebral infarction without residual deficits; Z87.891 Personal history of nicotine dependence
CPT/HCPCS: 72125; 73030; 99282

== ENCOUNTER 2022-05-15 12:28 | Emergency (ER) | payer MEDICARE, MEDICAID, SELFPAY ==
[2022-05-15 12:30] VITALS: BP 117/82; PULSE 81; RESP 16; TEMP 36.4; O2SAT 98; BMI 36.1
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
[2022-05-15] MEDS: diazePAM 2 MG Tablet 4 MG PO (13:19)
[2022-05-15] MEDS: Ondansetron 4 MG/2 ML Vial IM (13:19)
[2022-05-15] MEDS: HYDROmorphone 1 MG/ML Syringe IM (13:20)
[2022-05-15 14:00] VITALS: BP 121/75; PULSE 73; RESP 16; O2SAT 94
[2022-05-15 14:34] VITALS: O2SAT 93
== END 2022-05-15 15:24 | disposition home or self-care (01) ==
PROVIDERS: Emergency Provider Emergency Medicine; PCP Family Medicine; Visit Provider Emergency Medicine
DX: M54.2 Cervicalgia (principal); E03.9 Hypothyroidism, unspecified; G47.30 Sleep apnea, unspecified; F41.9 Anxiety disorder, unspecified; F32.A Depression, unspecified; Z87.891 Personal history of nicotine dependence; Z79.899 Other long term (current) drug therapy; Z86.73 Personal history of transient ischemic attack (TIA), and cerebral infarction without residual deficits
CPT/HCPCS: 96372; 96374; 99283; J2405

== ENCOUNTER 2022-06-23 14:20 | Emergency (ER) | payer MEDICARE, MEDICAID, SELFPAY ==
[2022-06-23 14:21] VITALS: BP 112/67; PULSE 80; RESP 20; TEMP 36.6; O2SAT 98; BMI 36.0
[2022-06-23 14:28] VITALS: BP 112/67; PULSE 80; RESP 20; TEMP 36.6; O2SAT 98
--- NOTE | 2022-06-23 14:45 | EDS_ITS ---
HPI HPI - GI History of Present Illness Chief Complaint: Diarrhea Detail of Chief Complaint: Diarrhea that started 3 days ago Informant: patient Narrative Narrative: Patient presents to the emergency department complaint of diarrhea started 3 days ago. Patient having frequent episodes. She denies vomiting. She denies fever. She ate some salad and she thinks maybe that is what triggered it. Otherwise she denies any undercooked foods. Patient denies sick contacts. She denies recent antibiotic usage. She denies recent travel. Patient was seen in urgent care and referred to the emergency department. Prior similar symptoms: No PFSH PFSH Medical History (Updated 06/23/22 @ 15:[address] Shimon Eaton, DO) Abdominal pain Acid reflux Anemia Anxiety Arthritis Constipation Depression Diabetes Diarrhea Diverticulitis Hypothyroid IBS (irritable bowel syndrome) Lipidemia Nausea and vomiting Sleep apnea SOB (shortness of breath) Stroke Home Medications aripiprazole 10 mg tablet 10 mg PO DAILY 10/01/16 [History Last Taken Unknown] duloxetine 60 mg capsule,delayed release 30 mg PO DAILY 10/01/16 [History Last Taken Unknown] levothyroxine 125 mcg tablet 137 mcg PO MOTUWETHFRSA 10/01/16 [History Last Taken 08/11/19 07:30] rosuvastatin 40 mg tablet 40 mg PO QHS 10/01/16 [History Last Taken Unknown] sumatriptan succinate 50 mg tablet 50 mg PO .X1 PRN 10/01/16 [History Last Taken Unknown] omega 3-dha 60 mg-epa 90 mg-fish oil 500 mg capsule, delayed release 2,000 mg PO DAILY 11/21/16 [History Last Taken Unknown] pantoprazole 40 mg tablet,delayed release 40 mg PO DAILY 11/29/17 [History Last Taken 08/11/19 07:30] ondansetron 4 mg disintegrating tablet 4 mg PO Q8H PRN PRN Nausea 01/11/18 [History Last Taken Unknown] topiramate 25 mg tablet 50 mg PO BID 01/11/18 [History Last Taken 08/11/19 07:30] albuterol sulfate 90 mcg/actuation aerosol inhaler 2 puff inhalation Q4H PRN PRN Wheezing 06/04/19 [History Last Taken Unknown] baclofen 10 mg tablet 5 mg PO TID PRN Muscle Spasm 06/04/19 [History Last Taken Unknown] lactase 3,000 unit tablet 3,000 unit PO TIDCM 06/04/19 [History Last Taken Unknown] fenofibrate 54 mg tablet 54 mg PO DAILY 06/14/19 [History Last Taken Unknown] lactobacillus combination no.9 4 billion cell capsule (Adult 50 Plus Probiotic) 4,000 mmu cells PO DAILY 07/29/19 [History Last Taken Unknown] levothyroxine 137 mcg tablet 137 mcg PO CARMEN 12/16/20 [History Last Taken Unknown] diazepam 5 mg tablet (Valium) 5 mg PO BID PRN muscle spasm #14 tabs 05/15/22 [Rx Last Taken Unknown] hydrocodone-acetaminophen 5-325mg 5mg-325mg 1 tab PO Q4H PRN PRN Pain 2 days #10 TABLETS 05/15/22 [Rx Last Taken Unknown] dicyclomine 10 mg capsule 20 mg PO TIDAC #20 CAPSULES 06/23/22 [Rx Last Taken Unknown] diphenoxylate-atropine 2.5 mg-0.025 mg tablet (Lomotil) 1 tab PO TID #14 tabs 06/23/22 [Rx Last Taken Unknown] Allergy/AdvReac Type Severity Reaction Status Date / Time metronidazole [From Flagyl] Allergy Nausea/Vom/ Verified 06/23/22 14:21 Diarrhea acetaminophen [From Tylenol] AdvReac Nausea/Vom/ Verified 06/23/22 14:21 Diarrhea benztropine [From Cogentin] AdvReac Other Verified 06/23/22 14:21 esomeprazole [From Nexium] AdvReac Nausea Verified 06/23/22 14:21 oxybutynin [From Ditropan] AdvReac Nausea/Vom/ Verified 06/23/22 14:21 Diarrhea oxycodone [From Percocet] AdvReac Nausea Verified 06/23/22 14:21 Surgical History history bladder sling history left ulnar nerve repair History of arthroscopy of left knee Social History Smoking Status: Former smoker alcohol intake: never substance use type: does not use ROS ROS ED Review of Systems ROS Unobtainable: other Constitutional Constitutional ED: Reports lethargy; Denies chills, fever(s), sweats or weight loss Eyes Eyes: Denies blurry vision, change in vision or diplopia ENT ENT ED: Denies rhinorrhea or sore throat Cardiovascular Cardiovascular: Reports chest pain and racing heartbeat; Denies orthopnea Respiratory/Chest Respiratory/Chest: Reports dyspnea and dyspnea on exertion; Denies cough, orthopnea or sputum Gastrointestinal Gastrointestinal: Reports abdominal pain and diarrhea; Denies nausea or vomiting Genitourinary Genitourinary ED: Denies dysuria, hematuria or urinary frequency Musculoskeletal Musculoskeletal: Denies arthralgias, back pain, myalgias or neck pain Integumentary Denies abscess, Abrasions or rash Neurologic Neurologic: Denies headache(s) or weakness Psychiatric Psychiatric: Denies anxiety, depression or suicidal thoughts Endocrine Endocrinology: Denies polydipsia, polyphagia or polyuria Hematologic/Lymphatic Hematologic/Lymphatic: Denies easy bleeding, easy bruising or lymphadenopathy Allergic/Immunologic Allergic/Immunologic ED: Denies mouth swelling, tongue swelling or urticaria EXAM Physical Exam Const Vital Signs: 06/23/22 14:21 06/23/22 14:28 Temperature 97.8 F 97.8 F Temperature Source Temporal Temporal Pulse Rate 80 80 Respiratory Rate 20 H 20 H Blood Pressure 112/67 112/67 Blood Pressure Mean 82 Pulse Ox 98 98 Oxygen Delivery Method Room Air Room Air Positive well nourished and well developed General Appearance ED: well developed and NAD HEENT Reports TM's clear and moist mucous membranes normocephalic and atraumatic; Negative for trauma or tenderness Tympanic Membrane ED: Yes TM's clear Eyes PERRL and EOMs intact bilaterally General Eye ED: Negative for pale conjunctiva or scleral icterus Neck no lymphadenopathy, supple and no JVD General: Negative for tenderness Chest Wall inspection of chest normal and palpation of chest normal Chest: Negative for tenderness Resp normal respiratory effort and clear to auscultation bilaterally Effort and Inspection: Negative for respiratory distress or pain with movement Auscultation: Negative for rhonchi, wheezes or diminished lung sounds Cardio regular rate, regular rhythm, S1 normal heart sound, S2 normal heart sound and no murmurs Peripheral Pulses: pulses 2+ throughout GI soft to palpation, non-tender and no masses GI Narrative: Hyperactive bowel sounds. Mild diffuse tenderness. There is no rebound, rigidity, or peritoneal signs. Back/Spine no CVA tenderness and no thoracic nor lumbar tenderness Extremity normal to inspection General Extremety ED: Negative for edema General Extremity: Negative for edema Neuro oriented x3, CN's II-XII intact bilaterally, no sensory deficits noted and gait normal Sensorium / Orientation: awake, alert, oriented to person, oriented to place and oriented to time Motor Exam: strength 5/5 throughout and strength abnormal Psych mental status grossly normal Skin no rashes or lesions noted and no wounds MDM MDM MDM Narrative Medical decision making narrative: IV line established on arrival. Patient was medicated with Bent[place]. Patient was given a liter mostly of fluid bolus. Lab work-up obtained was essentially unremarkable. At this point clinically I suspect she has a viral enteritis. Patient will be given a prescription for Bentyl. Patient advised to use Imodium as needed for the diarrhea. Patient advised to follow-up with primary care physician in 3 to 5 days. She is to return if worsening abdominal pain, fever, persistent diarrhea and dehydration, or condition worsen anyway. Lab Data Attestation: I reviewed the patient's lab results. Labs: Laboratory Results - last 24 hr 06/23/22 06/23/22 14:52 14:52 WBC 7.4 RBC 4.10 L Hgb 11.7 L Hct 37.4 MCV 91.2 MCH 28.5 MCHC 31.3 L RDW Std Deviation 48.0 H RDW Coeff of [place] 14.2 Plt Count 365 MPV 9.9 Immature Gran % (Auto) 0.100 Neut % (Auto) 55.0 Lymph % (Auto) 35.6 [place] % (Auto) 7.4 Eos % (Auto) 1.5 Baso % (Auto) 0.4 Absolute Neuts (auto) 4.1 Absolute Lymphs (auto) 2.63 Nucleated RBC % 0 Sodium 141 Potassium 3.5 Chloride 112 H Carbon Dioxide 24.0 Anion Gap 5 BUN 17 Creatinine 0.94 Estim Creat Clear Calc 50.02 Est GFR (MDRD) Af Amer 77 Est GFR (MDRD) Non-Af 64 BUN/Creatinine Ratio 18.1 Glucose 103 Calcium 9.4 Discharge Plan Triage Chief Complaint: Diarrhea ED Provider: Shimon Eaton Dx/Rx/DC Orders Clinical Impression: Viral enteritis Instructions: ED Diarrhea, Viral (Adult) Prescriptions: New dicyclomine 10 mg capsule 20 mg PO TIDAC Qty: 20 0RF diphenoxylate-atropine [Lomotil] 2.5-0.025 mg tablet 1 tab PO TID Qty: 14 0RF No Action fenofibrate 54 mg tablet 54 mg PO DAILY Adult 50 Plus Probiotic 4 billion cell capsule 4,000 mmu cells PO DAILY sumatriptan succinate 50 MG tablet 50 mg PO .X1 PRN levothyroxine 125 MCG tablet 137 mcg PO MOTUWETHFRSA aripiprazole 10 MG tablet 10 mg PO DAILY rosuvastatin 40 MG tablet 40 mg PO QHS duloxetine 60 MG capsule 30 mg PO DAILY omega 5-rks-wug-fish oil 500 MG capsule,delayed release(DR/EC) 2,000 mg PO DAILY pantoprazole 40 MG tablet 40 mg PO DAILY ondansetron 4 MG tablet 4 mg PO Q8H PRN PRN (Reason: Nausea) topiramate 25 MG tablet 50 mg PO BID Rx Instructions: 25 mg po at night for one week. Then 50 mg po breakfast and 100mg po qhs. baclofen 10 MG tablet 5 mg PO TID PRN (Reason: Muscle Spasm) Label Comments: take 1/2 tablet by mouth three times a day if needed for muscle spasm lactase 3,000 UNIT tablet 3,000 unit PO TIDCM albuterol sulfate 1 INHALER inhaler 2 puff inhalation Q4H PRN PRN (Reason: Wheezing) levothyroxine 137 MCG tablet 137 mcg PO CARMEN hydrocodone-acetaminophen [hydrocodone-acetaminophen] 5-325 mg tablet 1 tab PO Q4H PRN PRN (Reason: Pain) 2 Days Qty: 10 0RF diazepam [Valium] 5 mg tablet 5 mg PO BID PRN (Reason: muscle spasm) Qty: 14 0RF Primary Care Provider: Kyle Monterroso Referrals: Kyle Monterroso MD [Primary Care Provider] - 3-5 Days Disposition Disposition: Home, Self Care
[2022-06-23] MEDS: 0.9% Normal Saline 1,000 ML 1000 ML IV (14:51)
[2022-06-23] MEDS: Loperamide 2 MG Capsule 4 MG PO (14:51)
[2022-06-23] MEDS: Dicyclomine 20 MG/2 ML Vial IM (14:52)
[2022-06-23 14:58] LABS: Absolute Lymphocyte Count 2.63 X10^3/uL (0.83-4.51); Absolute Neutrophil Count 4.1 X10^3/uL (2.0-7.7); Basophil# 0.03 X10^3/uL; Basophil% 0.4 % (0-1); Eosinophil# 0.11 X10^3/uL; Eosinophils% 1.5 % (0-5); Hematocrit 37.4 % (37-47); Hemoglobin 11.7 g/dL (12.0-15.0); Lymphocyte # 2.63 X10^3/ul (0.83-4.51); Lymphocyte % 35.6 % (19-41); Mean Corp Hgb Conc 31.3 g/dL (32-36); Mean Corpuscular Hgb 28.5 pg (27.0-32.0); Mean Corpuscular Volume 91.2 fL (81-99); Mean Platelet Vol. 9.9 fl (6.2-12.0); Monocyte# 0.55 X10^3/uL; Monocyte% 7.4 % (0-10); NRBC Flagged by Analyzer 0 % (0-5); Neutrophil # 4.06 X10^3/uL (2.7-7.7); Platelet Count 365 K/mm3 (150-450); RBC Distribution Width CV 14.2 % (11.6-14.6); White Blood Count 7.4 K/mm3 (4.4-11.0)
[2022-06-23 15:10] LABS: Anion Gap 5 (5-15); BUN 17 mg/dL (7-18); BUN/Creat Ratio 18.1 RATIO (10-20); Calcium,Total 9.4 mg/dL (8.5-10.1); Chloride 112 mmol/L (98-107); Creatinine, Serum 0.94 mg/dL (0.55-1.02); EST Glomerular Filtration Rate 64 mL/min (>60); Est Glom Filt Rate - Afr Amer 77 mL/min (>60); Estimated Creatinine Clearance 50.02 ml/min; Glucose 103 mg/dL (74-106); Potassium 3.5 mmol/L (3.5-5.1); Sodium Level 141 mmol/L (136-145)
[2022-06-23 15:30] LABS: Lactic Acid 0.6 mmol/L (0.4-1.9)
== END 2022-06-23 15:51 | disposition home or self-care (01) ==
PROVIDERS: Emergency Provider Emergency Medicine; PCP Family Medicine; Visit Provider Emergency Medicine
DX: A08.4 Viral intestinal infection, unspecified (principal); E11.9 Type 2 diabetes mellitus without complications; M19.90 Unspecified osteoarthritis, unspecified site; E03.9 Hypothyroidism, unspecified; F41.9 Anxiety disorder, unspecified; F32.A Depression, unspecified; Z79.899 Other long term (current) drug therapy; Z87.891 Personal history of nicotine dependence
CPT/HCPCS: 80048; 83605; 85025; 96360; 96372; 99283; J7030; A4216

== ENCOUNTER 2022-11-24 00:24 | Emergency (ER) | payer MEDICARE, MEDICAID, SELFPAY ==
[2022-11-24 00:25] VITALS: BP 128/72; PULSE 78; RESP 16; TEMP 36.3; O2SAT 99; BMI 38.0
[2022-11-24 00:26] VITALS: BP 128/72; PULSE 78; RESP 16; TEMP 36.3; O2SAT 99
--- NOTE | 2022-11-24 00:56 | EDS_ITS ---
HPI History of Present Illness Chief Complaint: Complaint Narrative Narrative: Patient is a 62-year-old female with past medical history of depression hypothyroidism and IBS. She states she started a new medication recently and she took it at night and this led to uncontrollable diarrhea. She states that she has concerned that these events led to her developing a UTI as she began with abdominal pressure and pain with urination today. She denies any fevers chills or weakness but states she has had multiple UTIs in the past and this feels similar in nature and therefore she comes in for evaluation [facility] Medical History Abdominal pain Acid reflux Anemia Anxiety Arthritis Constipation Depression Diabetes Diarrhea Diverticulitis Hypothyroid IBS (irritable bowel syndrome) Lipidemia Nausea and vomiting Sleep apnea SOB (shortness of breath) Stroke Home Medications aripiprazole 10 mg tablet 15 mg PO DAILY 10/01/16 [History Last Taken Unknown] duloxetine 60 mg capsule,delayed release 30 mg PO DAILY 10/01/16 [History Last Taken Unknown] rosuvastatin 40 mg tablet 40 mg PO QHS 10/01/16 [History Last Taken Unknown] omega 3-dha 60 mg-epa 90 mg-fish oil 500 mg capsule, delayed release 2,000 mg PO BID 11/21/16 [History Last Taken Unknown] pantoprazole 40 mg tablet,delayed release 40 mg PO BID 11/29/17 [History Last Taken 08/11/19 07:30] ondansetron 4 mg disintegrating tablet 4 mg PO Q8H PRN PRN Nausea 01/11/18 [History Last Taken Unknown] topiramate 25 mg tablet 100 mg PO BID 01/11/18 [History Last Taken 08/11/19 07:30] albuterol sulfate 90 mcg/actuation aerosol inhaler 2 puff inhalation Q4H PRN PRN Wheezing 06/04/19 [History Last Taken Unknown] lactase 3,000 unit tablet 3,000 unit PO TIDCM 06/04/19 [History Last Taken Unknown] fenofibrate 54 mg tablet 54 mg PO DAILY 06/14/19 [History Last Taken Unknown] lactobacillus combination no.9 4 billion cell capsule (Adult 50 Plus Probiotic) 4,000 mmu cells PO DAILY 07/29/19 [History Last Taken Unknown] levothyroxine 137 mcg tablet 137 mcg PO MOTUWETHFRSA 12/16/20 [History Last Taken Unknown] diphenoxylate-atropine 2.5 mg-0.025 mg tablet (Lomotil) 1 tab PO TID #14 tabs 06/23/22 [Rx Last Taken Unknown] cephalexin 500 mg capsule 500 mg PO TID 7 days #21 caps 11/24/22 [Rx Last Taken Unknown] cyanocobalamin (vitamin B-12) 1,000 mcg tablet 1,000 mcg PO DAILY 11/24/22 [History Last Taken Unknown] ergocalciferol (vitamin D2) 1,250 mcg (50,000 unit) capsule 1,250 mcg PO MOTH 11/24/22 [History Last Taken Unknown] ezetimibe 10 mg tablet 10 mg PO QHS 11/24/22 [History Last Taken Unknown] gabapentin 400 mg capsule 400 mg PO TID 11/24/22 [History Last Taken Unknown] levothyroxine 137 mcg tablet 274 mcg PO CARMEN 11/24/22 [History Last Taken Unknown] metformin 500 mg tablet,extended release 24 hr 500 mg PO DAILY 11/24/22 [History Last Taken Unknown] phenazopyridine 200 mg tablet (Pyridium) 200 mg PO TID PRN pain #10 tabs 11/24/22 [Rx Last Taken Unknown] semaglutide 0.25 mg or 0.5 mg (2 mg/1.5 mL) subcutaneous pen injector (Ozempic) 2 mg subcut TH 11/24/22 [History Last Taken Unknown] sucralfate 1 gram tablet 1 g PO QHS 11/24/22 [History Last Taken Unknown] Allergy/AdvReac Type Severity Reaction Status Date / Time metronidazole [From Flagyl] Allergy Nausea/Vom/ Verified 11/24/22 00:27 Diarrhea acetaminophen [From Tylenol] AdvReac Nausea/Vom/ Verified 11/24/22 00:27 Diarrhea benztropine [From Cogentin] AdvReac Other Verified 11/24/22 00:27 esomeprazole [From Nexium] AdvReac Nausea Verified 11/24/22 00:27 oxybutynin [From Ditropan] AdvReac Nausea/Vom/ Verified 11/24/22 00:27 Diarrhea oxycodone [From Percocet] AdvReac Nausea Verified 11/24/22 00:27 Surgical History history bladder sling history left ulnar nerve repair History of arthroscopy of left knee Social History Smoking Status: Former smoker alcohol intake: never substance use type: does not use ROS ROS ED Constitutional Constitutional ED: Denies chills or fever(s) ENT ENT ED: Denies sore throat Cardiovascular Cardiovascular: Denies chest pain Respiratory/Chest Respiratory/Chest: Denies cough or dyspnea Gastrointestinal Gastrointestinal: Reports abdominal pain; Denies diarrhea, nausea or vomiting Genitourinary Genitourinary ED: Reports dysuria and urinary frequency; Denies hematuria Musculoskeletal Musculoskeletal: Denies back pain or myalgias Integumentary Denies rash Neurologic Neurologic: Denies headache(s) Hematologic/Lymphatic Hematologic/Lymphatic: Denies easy bleeding or easy bruising EXAM Physical Exam Const Vital Signs: 11/24/22 00:25 11/24/22 00:26 Temperature 97.3 F L 97.3 F L Temperature Source Temporal Temporal Pulse Rate 78 78 Respiratory Rate 16 16 Blood Pressure 128/72 H 128/72 H Blood Pressure Mean 90 90 Pulse Ox 99 99 Oxygen Delivery Method Room Air Room Air Positive well nourished and well developed General Appearance ED: well developed Eyes PERRL and EOMs intact bilaterally General Eye ED: Negative for scleral icterus Neck supple Resp normal respiratory effort and clear to auscultation bilaterally Cardio regular rate and regular rhythm Rate: other Other Details: Radial pulses are +2-4 bilaterally are equal and symmetric GI non-distended GI Narrative: Abdomen is soft and nondistended with hyperactive bowel sounds. There is mild pain on palpation in the suprapubic region without voluntary guarding or rigidity Auscultation: hyperactive bowel sounds Palpation: soft Back/Spine no CVA tenderness Extremity normal to inspection Neuro oriented x3 and CN's II-XII intact bilaterally Sensorium / Orientation: alert Psych Psych Narrative: Patient has a flat affect Skin no rashes or lesions noted General Skin Exam: Negative for jaundice MDM MDM MDM Narrative Medical decision making narrative: Patient presented to the ER with stable vitals and history and exam that is most consistent with UTI. At this time as exam did not suggest systemic infection I felt no need for work-up other than a urine sample. UA confirmed infection with +3 bacteria and 10-25 white cells with no contamination. As patient gets these recurrently the urine will be sent for culture she will be started antibiotics and can be discharged home with follow-up with her family doctor on an outpatient basis Lab Data Attestation: I reviewed the patient's lab results. Labs: Laboratory Results - last 24 hr 11/24/22 01:45 Urine Color Yellow Urine Clarity Sl. Cloudy Urine pH 5.0 Ur Specific [place] 1.020 Urine Protein 15 H Urine Glucose (UA) Normal Urine Ketones Negative Urine Occult Blood Negative Urine Nitrite Negative Urine Bilirubin Negative Urine Urobilinogen Normal Ur Leukocyte Esterase 100 H Urine RBC 5-10 SEEN Urine WBC 10-25 SEEN Ur Squamous Epith Cells 0 SEEN Urine Bacteria 3+ Urine Mucus 0 SEEN Discharge Plan Triage Chief Complaint: Complaint ED Provider: Juventino Piper Dx/Rx/DC Orders Clinical Impression: UTI (urinary tract infection) Instructions: Urinary Tract Infections in Women Prescriptions: New cephalexin 500 mg capsule 500 mg PO TID 7 Days Qty: 21 0RF phenazopyridine [Pyridium] 200 mg tablet 200 mg PO TID PRN (Reason: pain) Qty: 10 0RF No Action fenofibrate 54 mg tablet 54 mg PO DAILY Adult 50 Plus Probiotic 4 billion cell capsule 4,000 mmu cells PO DAILY aripiprazole 10 MG tablet 15 mg PO DAILY rosuvastatin 40 MG tablet 40 mg PO QHS duloxetine 60 MG capsule 30 mg PO DAILY omega [id number]-fish oil 500 MG capsule,delayed release(DR/EC) 2,000 mg PO BID pantoprazole 40 MG tablet 40 mg PO BID ondansetron 4 MG tablet 4 mg PO Q8H PRN PRN (Reason: Nausea) topiramate 25 MG tablet 100 mg PO BID Rx Instructions: 25 mg po at night for one week. Then 50 mg po breakfast and 100mg po qhs. lactase 3,000 UNIT tablet 3,000 unit PO TIDCM albuterol sulfate 1 INHALER inhaler 2 puff inhalation Q4H PRN PRN (Reason: Wheezing) levothyroxine 137 MCG tablet 137 mcg PO MOTUWETHFRSA diphenoxylate-atropine [Lomotil] 2.5-0.025 mg tablet 1 tab PO TID Qty: 14 0RF levothyroxine 137 mcg tablet 274 mcg PO CARMEN Label Comments: TAKE 1 TABLET BY MOUTH ONCE DAILY FRIDAY-FRIDAY AND 2 TABLETS ON FRIDAY sucralfate 1 gram tablet 1 g PO QHS Label Comments: TAKE 1 TABLET BY MOUTH AT BEDTIME metformin 500 mg tablet extended release 24 hr 500 mg PO DAILY Label Comments: TAKE 1 TABLET BY MOUTH ONCE DAILY WITH BREAKFAST gabapentin 400 mg Capsule 400 mg PO TID cyanocobalamin (vitamin B-12) 1,000 mcg tablet 1,000 mcg PO DAILY Label Comments: TAKE 1 TABLET BY MOUTH ONCE DAILY ergocalciferol (vitamin D2) 1,250 mcg (50,000 unit) capsule 1,250 mcg PO MOTH Label Comments: TAKE 1 CAPSULE BY MOUTH TWICE A WEEK (FRIDAY AND FRIDAY) ezetimibe 10 mg tablet 10 mg PO QHS Label Comments: TAKE 1 TABLET BY MOUTH ONCE DAILY Ozempic 0.25 mg or 0.5 mg(2 mg/1.5 mL) pen injector 2 mg SUBCUT TH Primary Care Provider: Kyle Monterroso Referrals: Kyle Monterroso MD [Primary Care Provider] - Activity Restrictions/Additional Instructions: Please take the antibiotic as directed to help resolve your UTI. It would typically take about 2 days for symptoms to resolve. If you feel you are having worsening of symptoms or not responding to the antibiotic please return to the ER for repeat evaluation Disposition Disposition: Home, Self Care
[2022-11-24 01:51] LABS: Mucous, Urine 0 SEEN /hpf (<or=2+); Squamous Epithelial Cells - UA 0 SEEN /hpf (5-10)
[2022-11-24 01:53] LABS: Color, Urine Yellow (Yellow); Glucose, Dipstick Normal (Normal); Ketone-Dipstick Negative (Negative); Leukocyte Esterase-Dipstick 100 /ul (Negative); Nitrite-Dipstick Negative (Negative); Occult Blood-Urine Negative /ul (Negative); Protein-Dipstick 15 mg/dl (Negative); Urine Bilirubin Dipstick Negative (Negative); Urine Clarity Sl. Cloudy (Clear); Urine Urobilinogen Normal (Normal)
[2022-11-24 02:12] LABS: Bacteria 3+ /hpf (None Seen); Red Blood Cells-Urine 5-10 SEEN /hpf (0-5); White Blood Cells 10-25 SEEN /hpf (0-5)
[2022-11-24] MEDS: Phenazopyridine 95 MG Tablet 190 MG PO (02:42)
[2022-11-24] MEDS: Cephalexin 250 MG Capsule 500 MG PO (02:42)
== END 2022-11-24 02:44 | disposition home or self-care (01) ==
PROVIDERS: Emergency Provider Emergency Medicine; PCP Family Medicine; Visit Provider Emergency Medicine
DX: N39.0 Urinary tract infection, site not specified (principal); E11.9 Type 2 diabetes mellitus without complications; Z87.891 Personal history of nicotine dependence; R30.0 Dysuria; R35.0 Frequency of micturition
CPT/HCPCS: 81001; 87077; 87086; 87088; 87186; 99283

== ENCOUNTER 2023-07-26 18:29 | Emergency (ER) | payer MEDICARE, MEDICAID, SELFPAY ==
[2023-07-26 18:31] VITALS: BP 145/95; PULSE 70; RESP 16; TEMP 35.7; O2SAT 99; BMI 33.1
--- NOTE | 2023-07-26 18:59 | EKG12_ITS ---
Test Reason : DYSRHYTHMIA Blood Pressure : / mmHG Vent. Rate : 062 BPM Atrial Rate : 062 BPM P-R Int : 172 ms QRS Dur : 086 ms QT Int : 398 ms P-R-T Axes : 067 002 028 degrees QTc Int : 403 ms Normal sinus rhythm Inferior infarct , age undetermined Abnormal ECG Confirmed by INDIGO MUIR, RIO ([id number]), newspaper editor managing FILEMON FAROOQ ([id number]) on 08/04/2023 7:22:50 AM Referred By: Confirmed By:RIO SOOD MD
--- NOTE | 2023-07-26 19:06 | EDS_ITS ---
HPI History of Present Illness Chief Complaint: General Illness Informant: patient and spouse/S.O. Narrative Narrative: 63-year-old female presented to the emergency room after a day of not feeling well. States that she woke this morning did not feel quite right. She felt shaky a little bit sweaty. She thought perhaps her blood sugars out of control but her glucometer and test strips are not working correctly. She takes metformin 500 mg once a day. She states she was told she is prediabetic. She denies any fevers diarrhea vomiting. No chest pain or shortness of breath. She denies any dysuria or frequency. [facility] Medical History Abdominal pain Acid reflux Anemia Anxiety Arthritis Constipation Depression Diabetes Diarrhea Diverticulitis Hypothyroid IBS (irritable bowel syndrome) Lipidemia Nausea and vomiting Sleep apnea SOB (shortness of breath) Stroke Home Medications aripiprazole 10 mg tablet 15 mg PO DAILY 10/01/16 [History Last Taken Unknown] duloxetine 60 mg capsule,delayed release 30 mg PO DAILY 10/01/16 [History Last Taken Unknown] rosuvastatin 40 mg tablet 40 mg PO QHS 10/01/16 [History Last Taken Unknown] pantoprazole 40 mg tablet,delayed release 40 mg PO BID 11/29/17 [History Last Taken 08/11/19 07:30] topiramate 25 mg tablet 100 mg PO BID 01/11/18 [History Last Taken 08/11/19 07:30] albuterol sulfate 90 mcg/actuation aerosol inhaler 2 puff inhalation Q4H PRN PRN Wheezing 06/04/19 [History Last Taken Unknown] lactase 3,000 unit tablet 3,000 unit PO TIDCM 06/04/19 [History Last Taken Unknown] fenofibrate 54 mg tablet 54 mg PO DAILY 06/14/19 [History Last Taken Unknown] levothyroxine 137 mcg tablet 137 mcg PO MOTUWETHFRSA 12/16/20 [History Last Taken Unknown] cyanocobalamin (vitamin B-12) 1,000 mcg tablet 1,000 mcg PO DAILY 11/24/22 [History Last Taken Unknown] ergocalciferol (vitamin D2) 1,250 mcg (50,000 unit) capsule 1,250 mcg PO MOTH 11/24/22 [History Last Taken Unknown] ezetimibe 10 mg tablet 10 mg PO QHS 11/24/22 [History Last Taken Unknown] gabapentin 400 mg capsule 600 mg PO TID 11/24/22 [History Last Taken Unknown] levothyroxine 137 mcg tablet 274 mcg PO CARMEN 11/24/22 [History Last Taken Unknown] metformin 500 mg tablet,extended release 24 hr 500 mg PO DAILY 11/24/22 [History Last Taken Unknown] sucralfate 1 gram tablet 1 g PO QHS 11/24/22 [History Last Taken Unknown] amitriptyline 25 mg tablet 25 mg PO QHS 07/26/23 [History Last Taken Unknown] aspirin 81 mg tablet,delayed release (Adult Aspirin Regimen) 81 mg PO DAILY 07/26/23 [History Last Taken Unknown] buspirone 10 mg tablet 10 mg PO DAILY PRN mental health 07/26/23 [History Last Taken Unknown] plecanatide 3 mg tablet (Trulance) 3 mg PO DAILY 07/26/23 [History Last Taken Unknown] rimegepant 75 mg disintegrating tablet (Nurtec ODT) 75 mg PO DAILY PRN . 07/26/23 [History Last Taken Unknown] ropinirole 1 mg tablet 1 mg PO QHS 07/26/23 [History Last Taken Unknown] tizanidine 4 mg tablet 4 mg PO TID PRN . 07/26/23 [History Last Taken Unknown] Allergy/AdvReac Type Severity Reaction Status Date / Time metronidazole [From Flagyl] Allergy Nausea/Vom/ Verified 07/26/23 18:31 Diarrhea acetaminophen [From Tylenol] AdvReac Nausea/Vom/ Verified 07/26/23 18:31 Diarrhea benztropine [From Cogentin] AdvReac Other Verified 07/26/23 18:31 esomeprazole [From Nexium] AdvReac Nausea Verified 07/26/23 18:31 oxybutynin [From Ditropan] AdvReac Nausea/Vom/ Verified 07/26/23 18:31 Diarrhea oxycodone [From Percocet] AdvReac Nausea Verified 07/26/23 18:31 Surgical History history bladder sling history left ulnar nerve repair History of arthroscopy of left knee Social History Smoking Status: Former smoker alcohol intake: never substance use type: does not use ROS ROS ED ROS Narrative Shaky and sweaty Constitutional Constitutional ED: Denies chills or weight loss Eyes Eyes: Denies change in vision or diplopia ENT ENT ED: Denies ear pain, rhinorrhea or sore throat Cardiovascular Cardiovascular: Reports palpitations; Denies chest pain, orthopnea or racing heartbeat Respiratory/Chest Respiratory/Chest: Denies cough, dyspnea or orthopnea Gastrointestinal Gastrointestinal: Denies abdominal pain, diarrhea, nausea or vomiting Genitourinary Genitourinary ED: Denies dysuria, hematuria or urinary frequency Musculoskeletal Musculoskeletal: Denies arthralgias or myalgias Integumentary Denies abscess or rash Neurologic Neurologic: Denies headache(s) or weakness Psychiatric Psychiatric: Denies anxiety, depression, suicidal ideation or suicidal thoughts Endocrine Endocrinology: Denies polydipsia, polyphagia or polyuria Allergic/Immunologic Allergic/Immunologic ED: Denies mouth swelling, tongue swelling or urticaria EXAM Physical Exam Const Vital Signs: 07/26/23 18:31 07/26/23 19:43 07/26/23 20:13 Temperature 96.3 F L Temperature Source Temporal Pulse Rate 70 63 Respiratory Rate 16 16 Respiratory Effort Normal Respiratory Pattern Normal Blood Pressure 145/95 H 133/87 H Blood Pressure Mean 111 102 Pulse Ox 99 98 Oxygen Delivery Method Room Air Room Air Positive well nourished, well developed and obese General Appearance ED: well developed Nutritional Appearance: obese HEENT Reports normocephalic, head/scalp atraumatic and moist mucous membranes Eyes PERRL and EOMs intact bilaterally Neck no lymphadenopathy, supple and no JVD Neck Narrative: Patient is wearing a c-collar Resp normal respiratory effort and clear to auscultation bilaterally Cardio regular rate, regular rhythm and no murmurs GI normal to inspection, nondistended, normoactive bowel sounds and non-tender Palpation: soft Back/Spine no CVA tenderness and normal ROM Extremity normal to inspection General Extremety ED: Negative for edema General Extremity: Negative for edema Neuro oriented x3 and CN's II-XII intact bilaterally Sensorium / Orientation: alert Motor Exam: strength 5/5 throughout Psych mental status grossly normal Mood & Affect: Negative for depressed or tearful Skin no rashes or lesions noted and no wounds MDM MDM MDM Narrative Medical decision making narrative: Basic blood work was obtained. White count of 7 hemoglobin of 13. Creatinine 1.03 BUN of 16. Her glucose is 97 sodium 142 potassium 3.6. Troponin normal. EKG is a normal sinus rhythm urinalysis shows no overt infection. At this point think the patient can be discharged home. I am not finding any localizing symptoms. Metabolically she appears intact. She did have elevation of her TSH which have asked her to follow-up with her doctor on. She can also discuss getting a new glucometer if she is unable to get her is working. Lab Data Attestation: I reviewed the patient's lab results. Labs: Laboratory Results - last 24 hr 07/26/23 19:24 WBC 7.0 RBC 4.51 Hgb 13.0 Hct 40.9 MCV 90.7 MCH 28.8 MCHC 31.8 L RDW Std Deviation 48.5 H RDW Coeff of [place] 14.6 Plt Count 253 MPV 10.9 Immature Gran % (Auto) 0.000 Neut % (Auto) 34.4 L Lymph % (Auto) 55.1 H [place] % (Auto) 8.1 Eos % (Auto) 1.7 Baso % (Auto) 0.7 Absolute Neuts (auto) 2.4 Absolute Lymphs (auto) 3.87 Nucleated RBC % 0 Sodium 142 Potassium 3.6 Chloride 114 H Carbon Dioxide 23.0 Anion Gap 5 BUN 16 Creatinine 1.03 H Estim Creat Clear Calc 45.04 Est GFR (MDRD) Af Amer 69 Est GFR (MDRD) Non-Af 57 L BUN/Creatinine Ratio 15.5 Glucose 97 Calcium 9.6 Total Bilirubin 0.30 Direct Bilirubin 0.11 AST 12 L ALT 20 Alkaline Phosphatase 77 Troponin I High Sens 4 Total Protein 8.0 Albumin 3.9 Globulin 4.1 Lipase 52 TSH 14.20 H Urine Color Yellow Urine Clarity Cloudy Urine pH 8.0 Ur Specific [place] 1.015 Urine Protein Negative Urine Glucose (UA) Normal Urine Ketones Negative Urine Occult Blood Negative Urine Nitrite Negative Urine Bilirubin Negative Urine Urobilinogen Normal Ur Leukocyte Esterase 25 H Urine RBC 0 SEEN Urine WBC 0-5 SEEN Ur Squamous Epith Cells 0 SEEN Amorphous Sediment 1+ Urine Bacteria 2+ Urine Mucus 0 SEEN EKG Initial EKG: Attestation: I personally reviewed and interpreted this EKG as follows: Comments: Sinus rhythm ventricular rate of 62 bpm Prior: Unchanged Discharge Plan Triage Chief Complaint: General Illness ED Provider: Kit Collier Dx/Rx/DC Orders Clinical Impression: Diabetes mellitus, Hypothyroid, Weakness Prescriptions: No Action fenofibrate 54 mg tablet 54 mg PO DAILY aripiprazole 10 MG tablet 15 mg PO DAILY rosuvastatin 40 MG tablet 40 mg PO QHS duloxetine 60 MG capsule 30 mg PO DAILY pantoprazole 40 MG tablet 40 mg PO BID topiramate 25 MG tablet 100 mg PO BID Rx Instructions: 25 mg po at night for one week. Then 50 mg po breakfast and 100mg po qhs. lactase 3,000 UNIT tablet 3,000 unit PO TIDCM albuterol sulfate 1 INHALER inhaler 2 puff inhalation Q4H PRN PRN (Reason: Wheezing) levothyroxine 137 MCG tablet 137 mcg PO MOTUWETHFRSA levothyroxine 137 mcg tablet 274 mcg PO CARMEN Patient Comments: TAKE 1 TABLET BY MOUTH ONCE DAILY FRIDAY-FRIDAY AND 2 TABLETS ON FRIDAY sucralfate 1 gram tablet 1 g PO QHS Patient Comments: TAKE 1 TABLET BY MOUTH AT BEDTIME metformin 500 mg tablet extended release 24 hr 500 mg PO DAILY Patient Comments: TAKE 1 TABLET BY MOUTH ONCE DAILY WITH BREAKFAST gabapentin 400 mg Capsule 600 mg PO TID cyanocobalamin (vitamin B-12) 1,000 mcg tablet 1,000 mcg PO DAILY Patient Comments: TAKE 1 TABLET BY MOUTH ONCE DAILY ergocalciferol (vitamin D2) 1,250 mcg (50,000 unit) capsule 1,250 mcg PO MOTH Patient Comments: TAKE 1 CAPSULE BY MOUTH TWICE A WEEK (FRIDAY AND FRIDAY) ezetimibe 10 mg tablet 10 mg PO QHS Patient Comments: TAKE 1 TABLET BY MOUTH ONCE DAILY ropinirole 1 mg tablet 1 mg PO QHS Patient Comments: TAKE 1 TABLET BY MOUTH BEFORE BEDTIME buspirone 10 mg tablet 10 mg PO DAILY PRN (Reason: mental health) Patient Comments: TAKE 1 TABLET BY MOUTH ONCE DAILY NEEDED Trulance 3 mg tablet 3 mg PO DAILY tizanidine 4 mg tablet 4 mg PO TID PRN Patient Comments: TAKE 1 TABLET BY MOUTH UP TO THREE TIMES DAILY NEEDED FOR PAINFUL MUSCLE SPASMS Nurtec ODT 75 mg tablet,disintegrating 75 mg PO DAILY PRN Patient Comments: DISSOLVE 1 TABLET BY MOUTH ONCE DAILY NEEDED amitriptyline 25 mg tablet 25 mg PO QHS Patient Comments: TAKE 1 TABLET BY MOUTH ONCE DAILY AT BEDTIME aspirin [Adult Aspirin Regimen] 81 mg tablet,delayed release (DR/EC) 81 mg PO DAILY Primary Care Provider: Kyle Monterroso Referrals: Kyle Monterroso MD [Primary Care Provider] - Keep Simon appointment Activity Restrictions/Additional Instructions: Your TSH today is 14.2. Please discuss this with your primary care doctor when you see them on 30 July. Please discuss your glucometer and its functionality at that appointment as well. Disposition Disposition: Home, Self Care
[2023-07-26 19:32] LABS: Mucous, Urine 0 SEEN /hpf (<or=2+); Red Blood Cells-Urine 0 SEEN /hpf (0-5); Squamous Epithelial Cells - UA 0 SEEN /hpf (5-10)
[2023-07-26 19:39] LABS: Absolute Lymphocyte Count 3.87 X10^3/uL (0.83-4.51); Absolute Neutrophil Count 2.4 X10^3/uL (2.0-7.7); Basophil# 0.05 X10^3/uL; Basophil% 0.7 % (0-1); Color, Urine Yellow (Yellow); Eosinophil# 0.12 X10^3/uL; Eosinophils% 1.7 % (0-5); Glucose, Dipstick Normal (Normal); Hematocrit 40.9 % (37-47); Ketone-Dipstick Negative (Negative); Leukocyte Esterase-Dipstick 25 /ul (Negative); Lymphocyte # 3.87 X10^3/ul (0.83-4.51); Lymphocyte % 55.1 % (19-41); Mean Corp Hgb Conc 31.8 g/dL (32-36); Mean Corpuscular Hgb 28.8 pg (27.0-32.0); Mean Corpuscular Volume 90.7 fL (81-99); Mean Platelet Vol. 10.9 fl (6.2-12.0); Monocyte# 0.57 X10^3/uL; Monocyte% 8.1 % (0-10); NRBC Flagged by Analyzer 0 % (0-5); Neutrophil # 2.41 X10^3/uL (2.7-7.7); Neutrophil % 34.4 % (47-70); Nitrite-Dipstick Negative (Negative); Occult Blood-Urine Negative /ul (Negative); Platelet Count 253 K/mm3 (150-450); Protein-Dipstick Negative (Negative); RBC Distribution Width CV 14.6 % (11.6-14.6); RBC Distribution Width SD 48.5 fl (35.1-43.9); Red Blood Count 4.51 M/mm3 (4.2-5.4); Specific Gravity, Urine 1.015 (1.002-1.030); Urine Bilirubin Dipstick Negative (Negative); Urine Clarity Cloudy (Clear); Urine Urobilinogen Normal (Normal)
[2023-07-26 19:52] LABS: Amorphous Sediment 1+; Bacteria 2+ /hpf (None Seen); White Blood Cells 0-5 SEEN /hpf (0-5)
[2023-07-26 20:10] LABS: AST(SGOT) 12 U/L (15-37); Alanine Aminotransfer ALT/SGPT 20 U/L (13-56); Albumin, Serum 3.9 g/dL (3.2-5.0); Alkaline Phosphatase 77 U/L (45-117); Anion Gap 5 (5-15); BUN 16 mg/dL (7-18); BUN/Creat Ratio 15.5 RATIO (10-20); Bilirubin, Direct 0.11 mg/dL (0.00-0.30); Calcium,Total 9.6 mg/dL (8.5-10.1); Chloride 114 mmol/L (98-107); Creatinine, Serum 1.03 mg/dL (0.55-1.02); EST Glomerular Filtration Rate 57 mL/min (>60); Est Glom Filt Rate - Afr Amer 69 mL/min (>60); Estimated Creatinine Clearance 45.04 ml/min; Globulin 4.1 g/dL (2.2-4.2); Glucose 97 mg/dL (74-106); Lipase 52 U/L (13-75); Potassium 3.6 mmol/L (3.5-5.1); Sodium Level 142 mmol/L (136-145); Troponin-I HS 4 pg/mL (3.0-54.0)
[2023-07-26 20:13] VITALS: BP 133/87; PULSE 63; RESP 16; O2SAT 98
[2023-07-26 21:26] VITALS: BP 133/84; PULSE 68; RESP 16; O2SAT 98
== END 2023-07-26 21:27 | disposition home or self-care (01) ==
PROVIDERS: Emergency Provider Emergency Medicine; PCP Family Medicine; Visit Provider Emergency Medicine
DX: E11.9 Type 2 diabetes mellitus without complications (principal); E05.90 Thyrotoxicosis, unspecified without thyrotoxic crisis or storm; R53.1 Weakness; E66.9 Obesity, unspecified; Z68.33 Body mass index [BMI] 33.0-33.9, adult; Z79.82 Long term (current) use of aspirin; Z79.84 Long term (current) use of oral hypoglycemic drugs; Z86.73 Personal history of transient ischemic attack (TIA), and cerebral infarction without residual deficits; Z87.891 Personal history of nicotine dependence
CPT/HCPCS: 80048; 80076; 81001; 83690; 84443; 84484; 85025; 93005; 99283

== ENCOUNTER 2023-11-07 14:50 | Emergency (ER) | payer MEDICARE, MEDICAID, SELFPAY ==
[2023-11-07 14:50] VITALS: BP 137/72; PULSE 85; RESP 16; TEMP 36.4; O2SAT 100
[2023-11-07 15:34] LABS: Absolute Lymphocyte Count 4.68 X10^3/uL (0.83-4.51); Absolute Neutrophil Count 3.3 X10^3/uL (2.0-7.7); Basophil# 0.05 X10^3/uL; Basophil% 0.6 % (0-1); Eosinophil# 0.12 X10^3/uL; Eosinophils% 1.4 % (0-5); Hematocrit 36.2 % (37-47); Hemoglobin 11.8 g/dL (12.0-15.0); Lymphocyte # 4.68 X10^3/ul (0.83-4.51); Lymphocyte % 53.5 % (19-41); Mean Corp Hgb Conc 32.6 g/dL (32-36); Mean Corpuscular Hgb 29.1 pg (27.0-32.0); Mean Corpuscular Volume 89.4 fL (81-99); Mean Platelet Vol. 10.1 fl (6.2-12.0); Monocyte# 0.57 X10^3/uL; Monocyte% 6.5 % (0-10); NRBC Flagged by Analyzer 0 % (0-5); Neutrophil # 3.31 X10^3/uL (2.7-7.7); Neutrophil % 37.8 % (47-70); Platelet Count 509 K/mm3 (150-450); RBC Distribution Width CV 14.9 % (11.6-14.6); RBC Distribution Width SD 48.8 fl (35.1-43.9); Red Blood Count 4.05 M/mm3 (4.2-5.4); White Blood Count 8.8 K/mm3 (4.4-11.0)
[2023-11-07 15:44] LABS: Mucous, Urine 0 SEEN /hpf (<or=2+); Red Blood Cells-Urine 0 SEEN /hpf (0-5)
[2023-11-07 15:48] LABS: Color, Urine Yellow (Yellow); Glucose, Dipstick Normal (Normal); Ketone-Dipstick Negative (Negative); Leukocyte Esterase-Dipstick 500 /ul (Negative); Nitrite-Dipstick Negative (Negative); Occult Blood-Urine 10 /ul (Negative); Protein-Dipstick 15 mg/dl (Negative); Specific Gravity, Urine 1.015 (1.002-1.030); Urine Bilirubin Dipstick Negative (Negative); Urine Clarity Clear (Clear); Urine Urobilinogen Normal (Normal); Urine pH 6.5 (5.0 - 8.0)
--- NOTE | 2023-11-07 15:55 | RAD_ITS ---
INDICATION: weakness EXAMINATION/TECHNIQUE: X-RAY - XR Chest 1 View COMPARISON: FINDINGS: LINES/DEVICES: None. LUNGS: No consolidation, edema or effusion. Possible focal left basilar infiltrate.. No pneumothorax. MEDIASTINUM AND CARDIOVASCULAR STRUCTURES: Cardiac silhouette not enlarged. Central airways and mediastinal contour are unremarkable. BONES AND SOFT TISSUES: Unremarkable. RAD/Chest 1 View (Portable) IMPRESSION: Possible focal left basilar infiltrate. Electronically Signed: Swapnil Lcoke DO at 16:31 EST ,
[2023-11-07 15:57] LABS: ALB/GLOB Ratio 0.8 RATIO (0.9-2.4); AST(SGOT) 10 U/L (15-37); Alanine Aminotransfer ALT/SGPT 16 U/L (13-56); Albumin, Serum 3.1 g/dL (3.2-5.0); Alkaline Phosphatase 70 U/L (45-117); Anion Gap 4 (5-15); BUN 31 mg/dL (7-18); BUN/Creat Ratio 30.1 RATIO (10-20); Calcium,Total 9.8 mg/dL (8.5-10.1); Chloride 107 mmol/L (98-107); Creatinine, Serum 1.03 mg/dL (0.55-1.02); EST Glomerular Filtration Rate 57 mL/min (>60); Est Glom Filt Rate - Afr Amer 69 mL/min (>60); Globulin 4.1 g/dL (2.2-4.2); Glucose 98 mg/dL (74-106); Potassium 3.7 mmol/L (3.5-5.1); Protein, Total 7.2 g/dL (6.4-8.2); Sodium Level 139 mmol/L (136-145)
--- NOTE | 2023-11-07 15:57 | CT_ITS ---
STUDY: CT BRAIN WITHOUT CONTRAST REASON FOR EXAM: Female, 63 years old. headache RADIATION DOSAGE (If Supplied By Facility): CTDIvol = ( 44.99 ) mGy, DLP = ( 762.36 ) mGycm TECHNIQUE: Transaxial CT imaging of the brain was performed without administration of intravenous contrast material. Individualized dose optimization techniques were used for this CT. COMPARISON: No relevant priors. FINDINGS: Normal soft tissue structures. Normal calvarium. Prominent ventricles and extra-axial spaces with mild atrophy. Mild white matter microangiopathic ischemic changes of the cerebral hemispheres. Normal basal ganglia and thalami. Normal brainstem. Normal cerebellum. There is no intracranial hemorrhage. There are no findings of an acute ischemic infarction. Normal visualized paranasal sinuses. CT/Brain/Head without Contrast IMPRESSION: No acute intracranial pathology of the brain. Electronically Signed: Swapnil Locke DO at 16:28 EST ,
--- NOTE | 2023-11-07 16:12 | EX.ED.DYSGE1 ---
HPI History of Present Illness Chief Complaint: General Illness Narrative Narrative: 63-year-old female presenting with headache. She has had this headache for 2 months. She reports that it is worse in the morning. She wakes up and she puts ice on her head and this eventually goes away. She states previously she was diagnosed with sleep apnea and she had a CPAP machine which she stopped using prior to the headache starting. She states she has some nausea which is pretty persistent. She has not seen her PCP until this last week and actually saw the nurse practitioner. She states that the nurse practitioner was afraid to change some of her medications with all of her symptoms. Patient does have history of migraine headaches. She states it does not feel like a migraine. She was told she likely has a viral illness versus sinusitis. Patient denies any fever, chills. She is not having purulent drainage or discharge from her nose. She states that her headache pain starts in her occiput and radiates forward to her forehead. No visual complaints. Patient states he is eating and drinking less. Her states that she does snore when she sleeps and sometimes she stops breathing consistent with a sleep apnea although they both believe that she had a follow-up study at [facility] which was negative for sleep apnea so that is why they are not using the CPAP anymore. Patient reports a lot of daytime fatigue and her states she nods off when they are just driving in the car. Patient also has recurrent UTIs in the past. She is not having dysuria or hematuria currently but just feels rundown. Denies chest pain, shortness of breath, cough. [facility] Medical History Abdominal pain Acid reflux Anemia Anxiety Arthritis Constipation Depression Diabetes Diarrhea Diverticulitis Hypothyroid IBS (irritable bowel syndrome) Lipidemia Nausea and vomiting Sleep apnea SOB (shortness of breath) Stroke Home Medications aripiprazole 10 mg tablet 15 mg PO DAILY 10/01/16 [History Last Taken Unknown] duloxetine 60 mg capsule,delayed release 30 mg PO DAILY 10/01/16 [History Last Taken Unknown] rosuvastatin 40 mg tablet 40 mg PO QHS 10/01/16 [History Last Taken Unknown] pantoprazole 40 mg tablet,delayed release 40 mg PO BID 11/29/17 [History Last Taken 08/11/19 07:30] topiramate 25 mg tablet 100 mg PO BID 01/11/18 [History Last Taken 08/11/19 07:30] albuterol sulfate 90 mcg/actuation aerosol inhaler 2 puff inhalation Q4H PRN PRN Wheezing 06/04/19 [History Last Taken Unknown] lactase 3,000 unit tablet 3,000 unit PO TIDCM 06/04/19 [History Last Taken Unknown] fenofibrate 54 mg tablet 54 mg PO DAILY 06/14/19 [History Last Taken Unknown] levothyroxine 137 mcg tablet 137 mcg PO MOTUWETHFRSA 12/16/20 [History Last Taken Unknown] cyanocobalamin (vitamin B-12) 1,000 mcg tablet 1,000 mcg PO DAILY 11/24/22 [History Last Taken Unknown] ergocalciferol (vitamin D2) 1,250 mcg (50,000 unit) capsule 1,250 mcg PO MOTH 11/24/22 [History Last Taken Unknown] ezetimibe 10 mg tablet 10 mg PO QHS 11/24/22 [History Last Taken Unknown] gabapentin 400 mg capsule 600 mg PO TID 11/24/22 [History Last Taken Unknown] levothyroxine 137 mcg tablet 274 mcg PO CARMEN 11/24/22 [History Last Taken Unknown] metformin 500 mg tablet,extended release 24 hr 500 mg PO DAILY 11/24/22 [History Last Taken Unknown] sucralfate 1 gram tablet 1 g PO QHS 11/24/22 [History Last Taken Unknown] amitriptyline 25 mg tablet 25 mg PO QHS 07/26/23 [History Last Taken Unknown] aspirin 81 mg tablet,delayed release (Adult Aspirin Regimen) 81 mg PO DAILY 07/26/23 [History Last Taken Unknown] buspirone 10 mg tablet 10 mg PO DAILY PRN mental health 07/26/23 [History Last Taken Unknown] plecanatide 3 mg tablet (Trulance) 3 mg PO DAILY 07/26/23 [History Last Taken Unknown] rimegepant 75 mg disintegrating tablet (Nurtec ODT) 75 mg PO DAILY PRN . 07/26/23 [History Last Taken Unknown] ropinirole 1 mg tablet 1 mg PO QHS 07/26/23 [History Last Taken Unknown] tizanidine 4 mg tablet 4 mg PO TID PRN . 07/26/23 [History Last Taken Unknown] metoclopramide HCl 10 mg tablet (Reglan) 10 mg PO Q6H PRN nausea/headache #10 tabs 11/07/23 [Rx Last Taken Unknown] Allergy/AdvReac Type Severity Reaction Status Date / Time metronidazole [From Flagyl] Allergy Nausea/Vom/ Verified 11/07/23 14:53 Diarrhea acetaminophen [From Tylenol] AdvReac Nausea/Vom/ Verified 11/07/23 14:53 Diarrhea benztropine [From Cogentin] AdvReac Other Verified 11/07/23 14:53 esomeprazole [From Nexium] AdvReac Nausea Verified 11/07/23 14:53 oxybutynin [From Ditropan] AdvReac Nausea/Vom/ Verified 11/07/23 14:53 Diarrhea oxycodone [From Percocet] AdvReac Nausea Verified 11/07/23 14:53 Surgical History history bladder sling history left ulnar nerve repair History of arthroscopy of left knee Social History Smoking Status: Former smoker alcohol intake: never substance use type: does not use ROS ROS ED Constitutional Constitutional ED: Denies chills, fever(s) or sweats Eyes Eyes: Denies blurry vision or change in vision ENT ENT ED: Denies ear pain or sore throat Cardiovascular Cardiovascular: Denies chest pain, palpitations or racing heartbeat Respiratory/Chest Respiratory/Chest: Denies cough, dyspnea or sputum Gastrointestinal Gastrointestinal: Reports nausea; Denies abdominal pain, constipation, diarrhea or vomiting Genitourinary Genitourinary ED: Denies dysuria, hematuria or urinary frequency Musculoskeletal Musculoskeletal: Denies arthralgias, myalgias or neck pain Integumentary Denies abscess, Abrasions or rash Neurologic Neurologic: Reports headache(s); Denies paresthesias or weakness Psychiatric Psychiatric: Denies anxiety, depression, suicidal ideation or suicidal thoughts Endocrine Endocrinology: Reports other Details: Daytime fatigue ; Denies polydipsia or polyuria EXAM Physical Exam Const Vital Signs: 11/07/23 14:50 11/07/23 15:46 11/07/23 16:57 Temperature 97.6 F L Temperature Source Temporal Pulse Rate 85 Respiratory Rate 16 16 Respiratory Effort Normal Non-Labored Blood Pressure 137/72 H Blood Pressure Mean 93 Pulse Ox 100 Oxygen Delivery Method Room Air Positive well nourished General Appearance ED: NAD; Negative for pallor HEENT Reports moist mucous membranes Eyes PERRL and EOMs intact bilaterally General Eye ED: Negative for pale conjunctiva or scleral icterus Neck no lymphadenopathy Chest Wall inspection of chest normal Resp normal respiratory effort Auscultation: Negative for rales, rhonchi or wheezes Cardio regular rate and regular rhythm GI normal to inspection, nondistended, normoactive bowel sounds Neuro oriented x3 and CN's II-XII intact bilaterally Sensorium / Orientation: alert Motor Exam: strength 5/5 throughout Psych mental status grossly normal Skin no rashes or lesions noted and no wounds General Skin Exam: Negative for jaundice or pallor MDM MDM MDM Narrative Medical decision making narrative: Patient presenting with headache for 2 months. She has not had any workup or evaluation other than a primary care visit last week. She describes headaches is worse in the morning and getting better with ice and regular [id number] medication throughout the morning. It sounds that she has a history of sleep apnea and she has daytime fatigue and her reports that she does stop breathing at night. I am not sure where she had her sleep study performed and told her she does not have sleep apnea but it does not sound like she has it. Differential at this point includes sleep apnea, dehydration, electrolyte normalities, pneumonia, UTI, malignancy. Patient was given a liter normal saline. She reports headache and nausea so she was given Reglan. CBC was obtained which shows a normal white blood cell count of 8.8. Hemoglobin stable at 11.8. Platelets are elevated at 509. Creatinine slightly elevated today at 1.03. Electrolytes normal. LFTs are normal. Will obtain a CT of the brain as she has not had any imaging of this. Chest x-ray was obtained to rule out pneumonia. I was able to look through the medical records and she recently was started on doxycycline secondary to coughing. She did not mention this on initial exam but we discussed it. Since he is already been treated this is likely a remnant on her chest x-ray which shows some infiltrate in the left lower lobe. Patient 100% on room air with respirate of 16 as well as clear breath sounds. Urinalysis negative for infection. She is feeling better from a headache standpoint after being treated today. I recommend to her that she follow-up with her PCP and return precautions were discussed. She was given some Reglan at home to take for nausea/headache. Impression: 1. Headache 2. Dehydration Lab Data Labs: Laboratory Results - last 24 hr 11/07/23 11/07/23 15:25 15:35 WBC 8.8 RBC 4.05 L Hgb 11.8 L Hct 36.2 L MCV 89.4 MCH 29.1 MCHC 32.6 RDW Std Deviation 48.8 H RDW Coeff of Cortes 14.9 H Plt Count 509 H MPV 10.1 Immature Gran % (Auto) 0.200 Neut % (Auto) 37.8 L Lymph % (Auto) 53.5 H Harris % (Auto) 6.5 Eos % (Auto) 1.4 Baso % (Auto) 0.6 Absolute Neuts (auto) 3.3 Absolute Lymphs (auto) 4.68 H Nucleated RBC % 0 Sodium 139 Potassium 3.7 Chloride 107 Carbon Dioxide 28.0 Anion Gap 4 L BUN 31 H Creatinine 1.03 H Est GFR (MDRD) Af Amer 69 Est GFR (MDRD) Non-Af 57 L BUN/Creatinine Ratio 30.1 H Glucose 98 Calcium 9.8 Total Bilirubin 0.30 AST 10 L ALT 16 Alkaline Phosphatase 70 Total Protein 7.2 Albumin 3.1 L Globulin 4.1 Albumin/Globulin Ratio 0.8 L Urine Color Yellow Urine Clarity Clear Urine pH 6.5 Ur Specific [place] 1.015 Urine Protein 15 H Urine Glucose (UA) Normal Urine Ketones Negative Urine Occult Blood 10 H Urine Nitrite Negative Urine Bilirubin Negative Urine Urobilinogen Normal Ur Leukocyte Esterase 500 H Urine RBC 0 SEEN Urine WBC 10-25 SEEN Ur Squamous Epith Cells 0-5 SEEN Urine Bacteria RARE Urine Mucus 0 SEEN Radiography Diagnostic Testing: Clinical Impression(s) from Imaging Studies Chest X-Ray 11/07/23 15:55 IMPRESSION: Possible focal left basilar infiltrate. Electronically Signed: Swapnil Locke DO at 16:31 EST Reading Location ID and State: [facility] / [place] Tel [phone], Service support , Brain CT 11/07/23 15:57 IMPRESSION: No acute intracranial pathology of the brain. Electronically Signed: Swapnil Locke DO at 16:28 EST , Discharge Plan Triage Chief Complaint: General Illness ED Provider: Nikunj Carpenter Dx/Rx/DC Orders Instructions: Self-Care for Headaches, ED Weakness (Uncertain Cause) Prescriptions: New metoclopramide HCl [Reglan] 10 mg tablet 10 mg PO Q6H PRN (Reason: nausea/headache) Qty: 10 0RF No Action fenofibrate 54 mg tablet 54 mg PO DAILY aripiprazole 10 MG tablet 15 mg PO DAILY rosuvastatin 40 MG tablet 40 mg PO QHS duloxetine 60 MG capsule 30 mg PO DAILY pantoprazole 40 MG tablet 40 mg PO BID topiramate 25 MG tablet 100 mg PO BID Rx Instructions: 25 mg po at night for one week. Then 50 mg po breakfast and 100mg po qhs. lactase 3,000 UNIT tablet 3,000 unit PO TIDCM albuterol sulfate 1 INHALER inhaler 2 puff inhalation Q4H PRN PRN (Reason: Wheezing) levothyroxine 137 MCG tablet 137 mcg PO MOTUWETHFRSA levothyroxine 137 mcg tablet 274 mcg PO CARMEN Patient Comments: TAKE 1 TABLET BY MOUTH ONCE DAILY FRIDAY-FRIDAY AND 2 TABLETS ON FRIDAY sucralfate 1 gram tablet 1 g PO QHS Patient Comments: TAKE 1 TABLET BY MOUTH AT BEDTIME metformin 500 mg tablet extended release 24 hr 500 mg PO DAILY Patient Comments: TAKE 1 TABLET BY MOUTH ONCE DAILY WITH BREAKFAST gabapentin 400 mg Capsule 600 mg PO TID cyanocobalamin (vitamin B-12) 1,000 mcg tablet 1,000 mcg PO DAILY Patient Comments: TAKE 1 TABLET BY MOUTH ONCE DAILY ergocalciferol (vitamin D2) 1,250 mcg (50,000 unit) capsule 1,250 mcg PO MOTH Patient Comments: TAKE 1 CAPSULE BY MOUTH TWICE A WEEK (FRIDAY AND FRIDAY) ezetimibe 10 mg tablet 10 mg PO QHS Patient Comments: TAKE 1 TABLET BY MOUTH ONCE DAILY ropinirole 1 mg tablet 1 mg PO QHS Patient Comments: TAKE 1 TABLET BY MOUTH BEFORE BEDTIME buspirone 10 mg tablet 10 mg PO DAILY PRN (Reason: mental health) Patient Comments: TAKE 1 TABLET BY MOUTH ONCE DAILY NEEDED Trulance 3 mg tablet 3 mg PO DAILY tizanidine 4 mg tablet 4 mg PO TID PRN Patient Comments: TAKE 1 TABLET BY MOUTH UP TO THREE TIMES DAILY NEEDED FOR PAINFUL MUSCLE SPASMS Nurtec ODT 75 mg tablet,disintegrating 75 mg PO DAILY PRN Patient Comments: DISSOLVE 1 TABLET BY MOUTH ONCE DAILY NEEDED amitriptyline 25 mg tablet 25 mg PO QHS Patient Comments: TAKE 1 TABLET BY MOUTH ONCE DAILY AT BEDTIME aspirin [Adult Aspirin Regimen] 81 mg tablet,delayed release (DR/EC) 81 mg PO DAILY Primary Care Provider: Kyle Monterroso Referrals: Kyle Monterroso MD [Primary Care Provider] - Disposition Disposition: Home, Self Care Discharge Date/Time: 11/07/23 18:21
[2023-11-07 16:15] LABS: Bacteria RARE /hpf (None Seen); Squamous Epithelial Cells - UA 0-5 SEEN /hpf (5-10); White Blood Cells 10-25 SEEN /hpf (0-5)
[2023-11-07] MEDS: 0.9% Normal Saline (1000mL) 1,000 ML 999 ML IV (16:30)
[2023-11-07] MEDS: Metoclopramide 10 MG Tablet PO (16:30)
[2023-11-07 16:57] VITALS: RESP 16
== END 2023-11-07 18:21 | disposition home or self-care (01) ==
PROVIDERS: Emergency Provider Student in an Organized Health Care Education/Training Program; PCP Family Medicine; Visit Provider Student in an Organized Health Care Education/Training Program
DX: R51.9 Headache, unspecified (principal); E11.9 Type 2 diabetes mellitus without complications; E86.0 Dehydration; Z87.891 Personal history of nicotine dependence
CPT/HCPCS: 70450; 71045; 80053; 81001; 85025; 87428; 96361; 99282; J7030; A4216

== ENCOUNTER 2024-01-17 11:55 | Emergency (ER) | payer MEDICARE, MEDICAID, SELFPAY ==
[2024-01-17 11:56] VITALS: BP 136/83; PULSE 80; RESP 14; TEMP 36.3; O2SAT 100; BMI 32.5
--- NOTE | 2024-01-17 12:17 | CT_ITS ---
STUDY: CT ABDOMEN AND PELVIS WITH CONTRAST REASON FOR EXAM: Female, 63 years old. Pain RADIATION DOSAGE (If Supplied By Facility): CTDIvol = ( 12.97 ) mGy, DLP = ( 781.55 ) mGycm TECHNIQUE: Transaxial images were obtained from the dome of the diaphragm to the symphysis pubis without oral contrast. IV 100mL [id number]-[id number] was administered. Sagittal and coronal images were reconstructed. Individualized dose optimization techniques were used for this CT. COMPARISON: November 21, 2019. FINDINGS: The visualized lung bases are unremarkable. The visualized portions of the heart are within normal limits. There is hepatomegaly with diffuse hepatic enlargement. Normal gallbladder and extrahepatic biliary system. Normal spleen. Normal pancreas. Normal bilateral adrenal glands. There is 0.4 cm stone in the right kidney. There is moderate hydronephrosis of the left kidney with decreased function and perinephric stranding. There is a 0.5 cm left distal ureteral stone Normal visualized stomach. There is duodenal diverticulum. There is no dilated small intestine. There are multiple colonic diverticula consistent with diverticulosis. The appendix is visualized and appears normal. There is atherosclerotic calcification of the abdominal aorta, without a demonstrated aneurysm. Normal inferior vena cava. Normal retroperitoneum. Normal urinary bladder. Normal visualized uterus. There is no free fluid in the abdomen or pelvis. Normal abdominal wall. There is degenerative change at L5-S1. CT/Abdomen/Pelvis W IV Cont ONLY IMPRESSION: Left distal ureteral stone with hydronephrosis. Right renal stone. Hepatomegaly. Colonic diverticulosis. No obstruction. Electronically Signed: Nathan Moralez MD at 14:52 EST ,
--- NOTE | 2024-01-17 12:19 | EDS_ITS ---
HPI <Daisy Altman RN - Last Filed: 01/17/24 16:04> History of Present Illness Chief Complaint: Flank Pain Detail of Chief Complaint: Left flank pain Informant: patient Onset/Context/Timing Onset: Yesterday Timing: Continuous Quality: Sharp Current Severity: 8/10 Maximum Severity: 10/10 Worsened by: Nothing Relieved by: Aleve Associated Symptoms Associated Symptoms: Nausea Narrative Narrative: Patient presents to the ED after being seen at [facility] today for left flank pain, nausea, and decreased p.o. intake. Patient reports aching and cramping pain currently rated 8/10 beginning yesterday. Patient also reports decreased p.o. intake since yesterday. She reports polydipsia since yesterday and polyuria over the past 3 to 4 months. Patient has a history of prediabetes for which she is on metformin. Patient indicates at [facility] her urine was checked and positive for protein, blood, and leukocytes. She reports gastric surgery 2 to 3 months ago completed via scope. Patient unable to recall exact procedure. Patient reports taking Aleve at approximately 0400 today with minimal relief. She denies chills, dysuria, and hematuria. Patient reports temperature was 99. She does report she had multiple episodes of diarrhea yesterday, patient unable to tell if there was blood in her stool. No bowel movement today. No prior history of kidney stones. She does have a prior history of diverticulitis in which she feels that this is a similar pain. Prior similar symptoms: No Recent Illness/Hospitalization: No PFSH <Daisy Altman RN - Last Filed: 01/17/24 16:04> [facility] Medical History Abdominal pain Acid reflux Anemia Anxiety Arthritis Constipation Depression Diabetes Diarrhea Diverticulitis Hypothyroid IBS (irritable bowel syndrome) Lipidemia Nausea and vomiting Sleep apnea SOB (shortness of breath) Stroke Home Medications aripiprazole 10 mg tablet 15 mg PO DAILY 10/01/16 [History Last Taken Unknown] duloxetine 60 mg capsule,delayed release 30 mg PO DAILY 10/01/16 [History Last Taken Unknown] rosuvastatin 40 mg tablet 40 mg PO QHS 10/01/16 [History Last Taken Unknown] pantoprazole 40 mg tablet,delayed release 40 mg PO BID 11/29/17 [History Last Taken 08/11/19 07:30] topiramate 25 mg tablet 100 mg PO BID 01/11/18 [History Last Taken 08/11/19 07:30] albuterol sulfate 90 mcg/actuation aerosol inhaler 2 puff inhalation Q4H PRN PRN Wheezing 06/04/19 [History Last Taken Unknown] lactase 3,000 unit tablet 3,000 unit PO TIDCM 06/04/19 [History Last Taken Unknown] fenofibrate 54 mg tablet 54 mg PO DAILY 06/14/19 [History Last Taken Unknown] levothyroxine 137 mcg tablet 137 mcg PO MOTUWETHFRSA 12/16/20 [History Last Taken Unknown] cyanocobalamin (vitamin B-12) 1,000 mcg tablet 1,000 mcg PO DAILY 11/24/22 [History Last Taken Unknown] ergocalciferol (vitamin D2) 1,250 mcg (50,000 unit) capsule 1,250 mcg PO MOTH 11/24/22 [History Last Taken Unknown] ezetimibe 10 mg tablet 10 mg PO QHS 11/24/22 [History Last Taken Unknown] gabapentin 400 mg capsule 600 mg PO TID 11/24/22 [History Last Taken Unknown] levothyroxine 137 mcg tablet 274 mcg PO CARMEN 11/24/22 [History Last Taken Unknown] metformin 500 mg tablet,extended release 24 hr 500 mg PO DAILY 11/24/22 [History Last Taken Unknown] sucralfate 1 gram tablet 1 g PO QHS 11/24/22 [History Last Taken Unknown] amitriptyline 25 mg tablet 25 mg PO QHS 07/26/23 [History Last Taken Unknown] aspirin 81 mg tablet,delayed release (Adult Aspirin Regimen) 81 mg PO DAILY 07/26/23 [History Last Taken Unknown] buspirone 10 mg tablet 10 mg PO DAILY PRN mental health 07/26/23 [History Last Taken Unknown] plecanatide 3 mg tablet (Trulance) 3 mg PO DAILY 07/26/23 [History Last Taken Unknown] rimegepant 75 mg disintegrating tablet (Nurtec ODT) 75 mg PO DAILY PRN . 07/26/23 [History Last Taken Unknown] ropinirole 1 mg tablet 1 mg PO QHS 07/26/23 [History Last Taken Unknown] tizanidine 4 mg tablet 4 mg PO TID PRN . 07/26/23 [History Last Taken Unknown] metoclopramide HCl 10 mg tablet (Reglan) 10 mg PO Q6H PRN nausea/headache #10 tabs 11/07/23 [Rx Last Taken Unknown] nitrofurantoin monohydrate/macrocrystals 100 mg capsule (Macrobid) 100 mg PO Q12H 7 days #14 caps 01/17/24 [Rx Last Taken Unknown] oxycodone-acetaminophen 5 mg-325 mg tablet (Percocet) 1 tab PO Q4H PRN pain 3 days #14 tabs 01/17/24 [Rx Last Taken Unknown] Allergy/AdvReac Type Severity Reaction Status Date / Time metronidazole [From Flagyl] Allergy Nausea/Vom/ Verified 01/17/24 11:56 Diarrhea acetaminophen [From Tylenol] AdvReac Nausea/Vom/ Verified 01/17/24 11:56 Diarrhea benztropine [From Cogentin] AdvReac Other Verified 01/17/24 11:56 esomeprazole [From Nexium] AdvReac Nausea Verified 01/17/24 11:56 oxybutynin [From Ditropan] AdvReac Nausea/Vom/ Verified 01/17/24 11:56 Diarrhea oxycodone [From Percocet] AdvReac Nausea Verified 01/17/24 11:56 Surgical History history bladder sling history left ulnar nerve repair History of arthroscopy of left knee Social History Smoking Status: Former smoker alcohol intake: never substance use type: does not use ROS <Daisy lAtman RN - Last Filed: 01/17/24 16:04> ROS ED ROS Narrative Well-Nourished, well-kept female with kyphosis. Constitutional Constitutional ED: Denies chills, fever(s) or sweats Cardiovascular Cardiovascular: Denies chest pain, orthopnea or palpitations Respiratory/Chest Respiratory/Chest: Denies cough, dyspnea or orthopnea Gastrointestinal Gastrointestinal: Reports abdominal pain, diarrhea and nausea; Denies vomiting Genitourinary Genitourinary ED: Reports urinary frequency; Denies dysuria or hematuria Musculoskeletal Musculoskeletal: Denies arthralgias or myalgias Integumentary Denies rash Neurologic Neurologic: Denies headache(s) or paresthesias Endocrine Endocrinology: Reports polydipsia and polyuria; Denies cold intolerance, heat intolerance or polyphagia EXAM <Daisy Altman RN - Last Filed: 01/17/24 16:04> Physical Exam Const Vital Signs: 01/17/24 11:56 01/17/24 12:17 01/17/24 15:00 Temperature 97.3 F L 99.3 F H Temperature Source Temporal Oral Pulse Rate 80 82 Respiratory Rate 14 16 Respiratory Pattern Normal Blood Pressure 136/83 H 129/80 H Blood Pressure Mean 100 96 Pulse Ox 100 97 Oxygen Delivery Method Room Air Room Air Positive well nourished and well developed General Appearance ED: well developed and NAD HEENT Reports moist mucous membranes Eyes PERRL and EOMs intact bilaterally Chest Wall inspection of chest normal and palpation of chest normal Resp normal respiratory effort and clear to auscultation bilaterally Auscultation: Negative for rales, rhonchi or wheezes Cardio regular rate, regular rhythm, S1 normal heart sound and S2 normal heart sound GI non-distended; Negative for hepatosplenomegaly Inspection: Negative for abdominal distention Auscultation: normoactive bowel sounds Palpation: soft and tender LUQ, RUQ, McBurney's point and Nicolas's sign Back/Spine General Back: CVA tenderness left Extremity normal to inspection General Extremety ED: Negative for edema or tenderness General Extremity: Negative for edema Neuro oriented x3 Sensorium / Orientation: alert Motor Exam: strength 5/5 throughout Psych mental status grossly normal Skin no rashes or lesions noted, no wounds and skin turgor normal <Dr. Toby Wallace MD - Last Filed: 01/17/24 16:07> Physical Exam Const Vital Signs: 01/17/24 11:56 01/17/24 12:17 01/17/24 15:00 Temperature 97.3 F L 99.3 F H Temperature Source Temporal Oral Pulse Rate 80 82 Respiratory Rate 14 16 Respiratory Pattern Normal Blood Pressure 136/83 H 129/80 H Blood Pressure Mean 100 96 Pulse Ox 100 97 Oxygen Delivery Method Room Air Room Air MDM <Daisy Altman RN - Last Filed: 01/17/24 16:04> MDM MDM Narrative Medical decision making narrative: IV line initiated. Labwork obtained to evaluate for leukocytosis, anemia, and electrolyte derangement. Urinalysis obtained to evaluate for infection/hematuria. CT scan of abdomen pelvis to be obtained to evaluate for colitis, diverticulitis, and kidney stones. Patient given morphine and Zofran for pain and nausea. Patient required additional dose of morphine for pain. I have personally performed a face to face assessment of the patient and have reviewed the JOSIAH Note. I performed a substantive portion of the visit including all aspects of the following. My ceja findings include: History is 63-year-old female complaining of abdominal and left flank pain began last evening. Prior history of gastroparesis with some type of procedure [id number] in the past. Denies any vomiting or diarrhea. No dysuria or fever. Denies any other abdominal or pelvic surgeries. Exam is [63-year-old female vital signs stable afebrile. HEENT exam unremarkable. Moist, mucous membranes. Neck nontender. Lungs clear to auscultation. Heart regular rhythm rate about 80 no murmur. Abdomen soft. Mildly tender in the upper abdomen and lower abdomen. No hernia. No mass. No significant distention. No pulsatile mass. No specific right upper quadrant tenderness or Nicolas sign. No specific right lower quadrant or McBurney's point tenderness. No peritoneal signs. No obstruction. Patient moving all 4 extremities. Nontender no edema. Back nontender. Neurologically she is awake and alert with no focal motor deficits.] Medical Decision Making [63-year-old with abdominal pain. Benign exam. CAT scan and labs pending. Treated with morphine for pain and Zofran for nausea.] Other additions or changes: [None] History & Record Review Discussion w/independent historian: Patient and Significant other Lab Data Attestation: I reviewed the patient's lab results. Labs: Laboratory Results - last 24 hr 01/17/24 01/17/24 12:40 13:14 WBC 10.7 RBC 4.20 Hgb 11.8 L Hct 38.2 MCV 91.0 MCH 28.1 MCHC 30.9 L RDW Std Deviation 46.5 H RDW Coeff of Cortes 14.0 Plt Count 317 MPV 10.5 Immature Gran % (Auto) 0.400 Neut % (Auto) 75.0 H Lymph % (Auto) 15.6 L [place] % (Auto) 8.4 Eos % (Auto) 0.2 Baso % (Auto) 0.4 Absolute Neuts (auto) 8.0 H Absolute Lymphs (auto) 1.66 Nucleated RBC % 0 Sodium 141 Potassium 3.3 L Chloride 109 H Carbon Dioxide 28.0 Anion Gap 4 L BUN 20 H Creatinine 1.12 H Estim Creat Clear Calc 51.26 Est GFR (MDRD) Af Amer 63 Est GFR (MDRD) Non-Af 52 L BUN/Creatinine Ratio 17.9 Glucose 112 H Calcium 9.6 Total Bilirubin 0.30 AST 14 L ALT 18 Alkaline Phosphatase 64 Total Protein 7.4 Albumin 3.6 Globulin 3.8 Albumin/Globulin Ratio 0.9 Lipase 40 Urine Color Yellow Urine Clarity Sl. Cloudy Urine pH 8.0 Ur Specific [place] 1.015 Urine Protein 30 H Urine Glucose (UA) Normal Urine Ketones Negative Urine Occult Blood 10 H Urine Nitrite Negative Urine Bilirubin Negative Urine Urobilinogen Normal Ur Leukocyte Esterase 500 H Urine RBC 0 SEEN Urine WBC 10-25 SEEN Ur Squamous Epith Cells 0 SEEN Urine Bacteria 1+ Urine Mucus 0 SEEN Radiography Diagnostic Testing: Clinical Impression(s) from Imaging Studies Abdomen/Pelvis CT 01/17/24 12:17 IMPRESSION: Left distal ureteral stone with hydronephrosis. Right renal stone. Hepatomegaly. Colonic diverticulosis. No obstruction. Electronically Signed: Nathan Moralez MD at 14:52 EST Reading Location ID and State: [address] [place] [address] , Service support , Differential Diagnosis Chest pain/SOB: ACS and aortic dissection Abdominal Pain: UTI Differential Diagnosis: Kidney stone Differential Diagnosis: Diverticulitis Management Discussion w/another healthcare provider: Other (Dr Wallace, ED provider) Treatment and Re-Evaluation :: Lab work and imaging reviewed. CBC shows normal white count of 10.7, hemoglobin 11.8, and platelets 317. Neutrophils elevated at 75%. Chemistries show slightly decreased potassium at 3.3. Creatinine is slightly elevated at 1.12 which is slightly higher than patient's last result of 1.03. Glucose is slightly elevated at 112. Urinalysis is positive for protein at 30, positive for occult blood and leukocytes. She does have 10-25 WBCs and 1+ bacteria. Urine culture was sent. CT of the abdomen and pelvis shows a left distal ur eteral stone with hydronephrosis and a right renal stone. No obstruction is noted. Incidental finding also shows hepatomegaly and diverticulosis. Dr. Wallace spoke with Dr. Greer from urology who is comfortable with the patient going home and following up with him on Friday. Upon reevaluation, patient is awake and alert with improved pain. Lab work, imaging, and follow-up discussed with patient. Patient agreeable with plan and to be discharged home on Macrobid 100 mg twice a day x 5 days. <Dr. Toby Wallace MD - Last Filed: 01/17/24 16:07> [facility] Narrative Medical decision making narrative: IV line initiated. Labwork obtained to evaluate for leukocytosis, anemia, and electrolyte derangement. Urinalysis obtained to evaluate for infection/hematuria. CT scan of abdomen pelvis to be obtained to evaluate for colitis, diverticulitis, and kidney stones. Patient given morphine and Zofran for pain and nausea. Patient required additional dose of morphine for pain. I have personally performed a face to face assessment of the patient and have reviewed the JOSIAH Note. I performed a substantive portion of the visit including all aspects of the following. My ceja findings include: History is 63-year-old female complaining of abdominal and left flank pain began last evening. Prior history of gastroparesis with some type of procedure [id number] in the past. Denies any vomiting or diarrhea. No dysuria or fever. Denies any other abdominal or pelvic surgeries. Exam is [63-year-old female vital signs stable afebrile. HEENT exam unremarkable. Moist, mucous membranes. Neck nontender. Lungs clear to auscultation. Heart regular rhythm rate about 80 no murmur. Abdomen soft. Mildly tender in the upper abdomen and lower abdomen. No hernia. No mass. No significant distention. No pulsatile mass. No specific right upper quadrant tenderness or Nicolas sign. No specific right lower quadrant or McBurney's point tenderness. No peritoneal signs. No obstruction. Patient moving all 4 e xtremities. Nontender no edema. Back nontender. Neurologically she is awake and alert with no focal motor deficits.] Medical Decision Making [63-year-old with abdominal pain. Benign exam. CAT sca n and labs pending. Treated with morphine for pain and Zofran for nausea.] Other additions or changes: [Repeat exam patient doing well at 4 PM. I did speak to Dr. Demetri Greer of urology. We went over the patient's test results clinical presentation CAT scan labs. He is scheduled with her being discharged home. She will be started on Macrobid for the UTI. Urine culture sent. He will follow her up in the office on Friday. She knows to return if feeling worse or develops a fever.] Lab Data Attestation: I reviewed the patient's lab results. Lab results narrative: CBC white count 10.7. H&H 11.8 and 38. Platelets 317. Chemistries show a gap of 4. BUN and creatinine at 21.1. Liver enzymes normal. Lipase normal. Urinalysis shows 10-25 white cells and 1+ bacteria. No nitrates. Culture sent. Labs: Laboratory Results - last 24 hr 01/17/24 01/17/24 12:40 13:14 WBC 10.7 RBC 4.20 Hgb 11.8 L Hct 38.2 MCV 91.0 MCH 28.1 MCHC 30.9 L RDW Std Deviation 46.5 H RDW Coeff of Cortes 14.0 Plt Count 317 MPV 10.5 Immature Gran % (Auto) 0.400 Neut % (Auto) 75.0 H Lymph % (Auto) 15.6 L [place] % (Auto) 8.4 Eos % (Auto) 0.2 Baso % (Auto) 0.4 Absolute Neuts (auto) 8.0 H Absolute Lymphs (auto) 1.66 Nucleated RBC % 0 Sodium 141 Potassium 3.3 L Chloride 109 H Carbon Dioxide 28.0 Anion Gap 4 L BUN 20 H Creatinine 1.12 H Estim Creat Clear Calc 51.26 Est GFR (MDRD) Af Amer 63 Est GFR (MDRD) Non-Af 52 L BUN/Creatinine Ratio 17.9 Glucose 112 H Calcium 9.6 Total Bilirubin 0.30 AST 14 L ALT 18 Alkaline Phosphatase 64 Total Protein 7.4 Albumin 3.6 Globulin 3.8 Albumin/Globulin Ratio 0.9 Lipase 40 Urine Color Yellow Urine Clarity Sl. Cloudy Urine pH 8.0 Ur Specific [place] 1.015 Urine Protein 30 H Urine Glucose (UA) Normal Urine Ketones Negative Urine Occult Blood 10 H Urine Nitrite Negative Urine Bilirubin Negative Urine Urobilinogen Normal Ur Leukocyte Esterase 500 H Urine RBC 0 SEEN Urine WBC 10-25 SEEN Ur Squamous Epith Cells 0 SEEN Urine Bacteria 1+ Urine Mucus 0 SEEN Radiography Diagnostic Testing: Clinical Impression(s) from Imaging Studies Abdomen/Pelvis CT 01/17/24 12:17 IMPRESSION: Left distal ureteral stone with hydronephrosis. Right renal stone. Hepatomegaly. Colonic diverticulosis. No obstruction. Electronically Signed: Nathan Moralez MD at 14:52 EST , Discharge Plan Triage Chief Complaint: Flank Pain ED Provider: Toby Wallace Dx/Rx/DC Orders Clinical Impression: Acute UTI, Kidney stone on left side, Acute left flank pain Instructions: Urinary Tract Infections in Women, ED Kidney Stone with Pain, ED UTIs Women Prescriptions: New nitrofurantoin monohyd/m-cryst [Macrobid] 100 mg capsule 100 mg PO Q12H 7 Days Qty: 14 0RF Rx Instructions: must administer with a meal/food oxycodone-acetaminophen [Percocet] 5-325 mg tablet 1 tab PO Q4H PRN (Reason: pain) 3 Days Qty: 14 0RF No Action fenofibrate 54 mg tablet 54 mg PO DAILY aripiprazole 10 MG tablet 15 mg PO DAILY rosuvastatin 40 MG tablet 40 mg PO QHS duloxetine 60 MG capsule 30 mg PO DAILY pantoprazole 40 MG tablet 40 mg PO BID topiramate 25 MG tablet 100 mg PO BID Rx Instructions: 25 mg po at night for one week. Then 50 mg po breakfast and 100mg po qhs. lactase 3,000 UNIT tablet 3,000 unit PO TIDCM albuterol sulfate 1 INHALER inhaler 2 puff inhalation Q4H PRN PRN (Reason: Wheezing) levothyroxine 137 MCG tablet 137 mcg PO MOTUWETHFRSA levothyroxine 137 mcg tablet 274 mcg PO CARMEN Patient Comments: TAKE 1 TABLET BY MOUTH ONCE DAILY FRIDAY-FRIDAY AND 2 TABLETS ON FRIDAY sucralfate 1 gram tablet 1 g PO QHS Patient Comments: TAKE 1 TABLET BY MOUTH AT BEDTIME metformin 500 mg tablet extended release 24 hr 500 mg PO DAILY Patient Comments: TAKE 1 TABLET BY MOUTH ONCE DAILY WITH BREAKFAST gabapentin 400 mg Capsule 600 mg PO TID cyanocobalamin (vitamin B-12) 1,000 mcg tablet 1,000 mcg PO DAILY Patient Comments: TAKE 1 TABLET BY MOUTH ONCE DAILY ergocalciferol (vitamin D2) 1,250 mcg (50,000 unit) capsule 1,250 mcg PO MOTH Patient Comments: TAKE 1 CAPSULE BY MOUTH TWICE A WEEK (FRIDAY AND FRIDAY) ezetimibe 10 mg tablet 10 mg PO QHS Patient Comments: TAKE 1 TABLET BY MOUTH ONCE DAILY ropinirole 1 mg tablet 1 mg PO QHS Patient Comments: TAKE 1 TABLET BY MOUTH BEFORE BEDTIME buspirone 10 mg tablet 10 mg PO DAILY PRN (Reason: mental health) Patient Comments: TAKE 1 TABLET BY MOUTH ONCE DAILY NEEDED Trulance 3 mg tablet 3 mg PO DAILY tizanidine 4 mg tablet 4 mg PO TID PRN Patient Comments: TAKE 1 TABLET BY MOUTH UP TO THREE TIMES DAILY NEEDED FOR PAINFUL MUSCLE SPASMS Nurtec ODT 75 mg tablet,disintegrating 75 mg PO DAILY PRN Patient Comments: DISSOLVE 1 TABLET BY MOUTH ONCE DAILY NEEDED amitriptyline 25 mg tablet 25 mg PO QHS Patient Comments: TAKE 1 TABLET BY MOUTH ONCE DAILY AT BEDTIME aspirin [Adult Aspirin Regimen] 81 mg tablet,delayed release (DR/EC) 81 mg PO DAILY metoclopramide HCl [Reglan] 10 mg tablet 10 mg PO Q6H PRN (Reason: nausea/headache) Qty: 10 0RF Primary Care Provider: Kyle Monterroso Referrals: Kyle Monterroso MD [Primary Care Provider] - Activity Restrictions/Additional Instructions: Your lab work and imaging shows a UTI and a left-sided kidney stone. Drink plenty of fluids. You may take Aleve or Percocet for pain. Call Dr. Greer's office first thing Friday morning for follow-up. Return to ED for worsening or concerning symptoms. Disposition Disposition: Home, Self Care
[2024-01-17] MEDS: Ondansetron 4 MG/2 ML Vial IV (12:38)
[2024-01-17] MEDS: Morphine 4 MG/ML Syringe IV ×2 (12:38→15:24)
--- OUTSIDE RECORDS SUMMARY | 2024-01-17 12:39 | XMS RPT_ITS | CCD ---
Author Name Unknown Address [address] [place] [address] Organization [facility] Care Team Providers Care Wire Welder Name Role Phone SAMANTHA POLANCO MD Unavailable Unavailable SAMANTHA POLANCO MD Unavailable Unavailable SAMANTHA POLANCO MD Unavailable Unavailable JOHN MENDEZ DO Unavailable Unavailable JOHN MENDEZ DO Unavailable Unavailable PROVIDER, UNKNOWN Unavailable Unavailable Helene Mckenan Unavailable Unavailable Nathan Grewal Unavailable Unavailable Nga MUIR, Kyle Day Primary Care Provider Nga MUIR, Kyle A Primary Care Provider Kyle Sylvester MD A Primary Care Provider Nga MUIR, Kyle A Primary Care Provider [phone] Abel Domínguez MD Unavailable JENNA EARLY Attending Unavailable NGA, KYLE A Primary Care Unavailable NGA, KYLE A Primary Care Unavailable PREJENNA CANNON Attending Unavailable NGA KYLE A Primary Care Unavailable MONFARED, ABEL Attending Unavailable MICHELLE, LIZZ Referring Unavailable NGA, KYLE A Primary Care Unavailable SHANNAN DEAN Attending Unavailable NGA, KYLE A Primary Care Unavailable MONFARED, ABEL Referring Unavailable NGA, KYLE A Referring Unavailable NGA, KYLE A Primary Care Unavailable MONFARED, ABEL Attending Unavailable NGA, KYLE A Primary Care Unavailable PREJENNA CANNON Attending Unavailable JESE MEJIA III W Referring Unavailable NGA, KYLE A Primary Care Unavailable DORANTES, LAURA Referring Unavailable DORANTES, LAURA Attending Unavailable KALKA, LIZZ Referring Unavailable NGA, KYLE A Primary Care Unavailable NGA, KYLE A Primary Care Unavailable MONFARED, ABEL Referring Unavailable MONFARED, ABEL Attending Unavailable MONFARED, ABEL Admitting Unavailable NGA, KYLE A Primary Care Unavailable NGA, KYLE A Referring Unavailable NGA, KYLE A Primary Care Unavailable MONFARED, ABEL Attending Unavailable MONFARED, ABEL Referring Unavailable NGA, KYLE A Primary Care Unavailable MONFARED, ABEL Attending Unavailable NGA, KYLE A Primary Care Unavailable MEJIA III, JESE W Referring Unavailable MEJIA III, JESE W Attending Unavailable NGA, KYLE A Primary Care Unavailable MONFARED, ABEL Attending Unavailable KALKA, LIZZ Referring Unavailable NGA, KYLE A Primary Care Unavailable KALKA, LIZZ Referring Unavailable NGA, KYLE A Primary Care Unavailable KALKA, LIZZ Referring Unavailable NGA, KYLE A Primary Care Unavailable NGA, KYLE A Primary Care Unavailable DORANTES, LAURA Referring Unavailable DORANTES, LAURA Attending Unavailable NGA, KYLE A Primary Care Unavailable SUZI BRITT Attending Unavailable SUZI BRITT Admitting Unavailable NGA, KYLE A Primary Care Unavailable FILIBERTO ATKINS Attending Unavailable MEJIA III, JESE W Referring Unavailable DORANTES, LAURA Referring Unavailable NGA, KYLE A Primary Care Unavailable NGA, KYLE A Primary Care Unavailable NATALY MOCTEZUMA Referring Unavailable JACKIE MCCOY Attending Unavailable NGA, KYLE A Primary Care Unavailable NGA, KYLE A Primary Care Unavailable NGA, KYLE A Referring Unavailable NGA, KYLE A Primary Care Unavailable GOGO LOWERY Referring Unavailable GOGO LOWERY Attending Unavailable NATHAN GREWAL Referring Unavailable NGA, KYLE A Primary Care Unavailable NGA, KYLE A Primary Care Unavailable HARPSTER, CORAL Attending Unavailable NGA, KYLE A Primary Care Unavailable NGA, KYLE A Referring Unavailable HARPSTER, CORAL Referring Unavailable NGA, KYLE A Primary Care Unavailable NGA, KYLE A Primary Care Unavailable GOGO LOWERY Attending Unavailable NGA, KYLE A Primary Care Unavailable NATHAN GREWAL Attending Unavailable NGA, KYLE A Primary Care Unavailable NGA, KYLE A Primary Care Unavailable DORANTES, LAURA Referring Unavailable NGA, KYLE A Attending Unavailable NGA, KYLE A Primary Care Unavailable CHARMAINE COREAS Referring Unavailable NGA, KYLE A Primary Care Unavailable VETOMANUEL, KALEIGH Referring Unavailable NGA, KYLE A Primary Care Unavailable VETOVITZ, KALEIGH Attending Unavailable NGA, KYLE A Primary Care Unavailable JACKIE MCCOY Attending Unavailable NGA, KYLE A Primary Care Unavailable LIZZ RIGGS Attending Unavailable NGA, KYLE A Primary Care Unavailable JACKIE MCCOY Attending Unavailable NGA, KYLE A Primary Care Unavailable NGA, KYLE A Primary Care Unavailable NGA, KYLE A Primary Care Unavailable JACKIE MCCOY Referring Unavailable NGA, KYLE A Primary Care Unavailable NATALY MOCTEZUMA Attending Unavailable LIZZ RIGGS Attending Unavailable NGA, KYLE A Primary Care Unavailable NGA, KYLE A Primary Care Unavailable NGA, KYLE A Primary Care Unavailable LOC HOFFMAN Attending Unavailable NGA, KYLE A Primary Care Unavailable NGA, KYLE A Referring Unavailable NGA, KYLE A Primary Care Unavailable KRYS SYKES Referring Unavailable NGA, KYLE A Primary Care Unavailable NGA, KYLE A Primary Care Unavailable NGA, KYLE A Referring Unavailable NGA, KYLE A Primary Care Unavailable NGA, KYLE A Referring Unavailable OLVIN RICHARD Attending Unavailable NGA, KYLE A Primary Care Unavailable OLVIN RICHARD Referring Unavailable NGA, KYLE A Primary Care Unavailable NGA, KYLE A Attending Unavailable NGA, KYLE A Primary Care Unavailable NGA, KYLE A Primary Care Unavailable NGA, KYLE A Attending Unavailable NGA, KYLE A Primary Care Unavailable NGA, KYLE A Referring Unavailable OLVIN RICHARD Referring Unavailable NGA, KYLE A Primary Care Unavailable NGA, KYLE A Attending Unavailable NGA, KYLE A Primary Care Unavailable NGA, KYLE A Referring Unavailable Allergies Allergy Classification Reported Allergen(s) Allergy Type Date of Onset Reaction(s) Facility (20 sources) Acetaminophen; Translations: [ACETAMINOPHEN] Drug Allergy 1 GI Upset [facility] Work Phone: (20 sources) Acetaminophen / oxyCODONE; Translations: [OXYCODONE-ACETAMI NOPHEN] Drug Allergy 6 Other: See Comments [facility] Work Phone: (20 sources) Benztropine; Translations: [BENZTROPINE MESYLATE] Drug Allergy 9 Other: See Comments [facility] Work Phone: (20 sources) Esomeprazole; Translations: [ESOMEPRAZOLE MAGNESIUM] Drug Allergy 5 Unknown [facility] Work Phone: (20 sources) Ibuprofen; Translations: [IBUPROFEN] Drug Allergy 0 GI Upset [facility] Work Phone: (20 sources) metroNIDAZOLE; Translations: [METRONIDAZOLE HCL] Drug Allergy 8 GI Upset [facility] Work Phone: (20 sources) oxybutynin; Translations: [OXYBUTYNIN CHLORIDE] Drug Allergy 5 Other: See Comments [facility] (20 sources) Valproate; Translations: [DIVALPROEX SODIUM] Drug Allergy 9 GI Upset [facility] Work Phone: (20 sources) Benztropine; Translations: [BENZTROPINE] Drug Allergy 2 Other: See Comments, Unknown [facility] (20 sources) oxybutynin; Translations: [OXYBUTYNIN] Drug Allergy 2 Other: See Comments, Unknown [facility] (20 sources) oxyCODONE; Translations: [OXYCODONE] Drug Allergy 2 GI Upset, Unknown [facility] Medications Current Medications Medication Drug Class(es) Dates Sig (Normalized) Sig (Original) amoxicillin 875 mg / clavulanate 125 mg oral tablet (2 sources) Penicillin-class Antibacterial Start: 08-06-2023 End: 08-13-2023 take 1 tablet by mouth twice daily amoxicillin-clav ulanic acid (AUGMENTIN) 875-125 mg per tablet Take 1 tablet by mouth twice daily for 7 days. 14 tablet 0 08/06/2023 08/13/2023 Active Completed/Discontinued Medications Medication Drug Class(es) Dates Sig (Normalized) Sig (Original) acetaminophen 650 mg oral tablet (20 sources) take 650 mg by mouth every eight hours as needed acetaminophen (TYLENOL ARTHRITIS ORAL) Take 650 mg by mouth every 8 hours as needed. 0 Active Problems Active Problems Problem Classification Problem Date Documented Da te Episodic/Chronic Acute bronchitis (1 source) Viral bronchitis; Translations: [Acute bronchitis due to other specified organisms] 06-15-2023 Episodic Anxiety disorders (20 sources) Mixed anxiety and depressive disorder; Translations: [Anxiety disorder, unspecified] Onset: 10-05-2020 10-05-2020 Chronic Chronic obstructive pulmonary disease and bronchiectasis (20 sources) Pulmonary emphysema; Translations: [Emphysema, unspecified] Onset: 05-08-2023 05-08-2023 Chronic Digestive congenital anomalies (1 source) Disorder of tongue; 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] Chronic Disorders of lipid metabolism (20 sources) Mixed hyperlipidemia; Translations: [Mixed hyperlipidemia] Onset: 08-22-2015 08-22-2015 Chronic E Codes: Natural/environment (3 sources) Repetitive motion disorder; Translations: [Overexertion from repetitive movements, initial encounter] Episodic Esophageal disorders (20 sources) Gastro-esophageal reflux disease with esophagitis; Translations: [Gastroesophageal reflux disease with esophagitis] Onset: 08-22-2015 03-03-2018 Chronic Esophageal disorders (2 sources) Esophageal disorders; Translations: [Gastroesophageal reflux disease with esophagitis without hemorrhage] Onset: 03-03-2018 Genitourinary symptoms and ill-defined conditions (20 sources) Incontinence; Translations: [Unspecified urinary incontinence] Onset: 02-20-2015 06-04-2019 Chronic Genitourinary symptoms and ill-defined conditions (2 sources) History of urinary tract infection; Translations: [Personal history of urinary (tract) infections] Episodic Headache; including migraine (20 sources) Migraine without aura, not refractory ; Translations: [Migraine without aura, not intractable, without status migrainosus] Onset: 05-22-2016 03-02-2020 Chronic Headache; including migraine (3 sources) Cervicogenic headache; Translations: [Cervicogenic headache] Episodic Headache; including migraine (1 source) Headache; including migraine; Translations: [Headache causing frequent awakening from sleep] Onset: 12-11-2023 Immunizations and screening for infectious disease (7 sources) Rheumatoid factor positive; Translations: [Other specified abnormal immunological findings in serum] Onset: 01-27-2023 Episodic Joint disorders and dislocations; trauma-related (20 sources) Locked joint of left knee; Translations: [Unspecified internal derangement of left knee] Onset: 06-19-2019 06-19-2019 Chronic Malaise and fatigue (9 sources) Fatigue; Translations: [Other fatigue] Onset: 06-11-2023 06-11-2023 Episodic Miscellaneous mental health disorders (20 sources) Primary insomnia; Translations: [Primary insomnia] Onset: 07-30-2018 07-30-2018 Chronic Mood disorders (20 sources) Bipolar I disorder; Translations: [Bipolar disorder, unspecified] Onset: 12-20-2005 03-03-2018 Chronic Mood disorders (1 source) Mood disorders; Translations: [Anxiety and depression] Onset: 03-27-2022 Nonmalignant breast conditions (1 source) Mammographic breast tissue appearance; Translations: [Dense breast tissue on mammogram] 08-28-2023 Episodic Nutritional deficiencies (20 sources) Vitamin D deficiency; Translations: [Vitamin D deficiency, unspecified] Onset: 01-25-2020 01-25-2020 Chronic Nutritional deficiencies (4 sources) Cobalamin deficiency; Translations: [Deficiency of other specified B group vitamins] Onset: 10-27-2023 09-15-2023 Episodic Occlusion or stenosis of precerebral arteries (20 sources) Bilateral stenosis of carotid arteries; Translations: [Occlusion and stenosis of bilateral carotid arteries] Onset: 09-25-2020 09-25-2020 Chronic Osteoarthritis (20 sources) Arthritis of right foot; Translations: [Primary osteoarthritis, right ankle and foot] Onset: 09-02-2018 03-05-2019 Chronic Osteoporosis (4 sources) Osteoporosis; Translations: [Age-related osteoporosis without current pathological fracture] Onset: 01-27-2023 Chronic Other acquired deformities (20 sources) Scoliosis deformity of spine; Translations: [Scoliosis, unspecified] Onset: 05-27-2022 Chronic Other aftercare (2 sources) Other longterm (current) drug therapy; Translations: [Encounter for medication management] Onset: 07-30-2023 Episodic Other and unspecified benign neoplasm (1 source) History of polyp of colon; Translations: [Personal history of colonic polyps] Episodic Other circulatory disease (1 source) Respiratory crackles; Translations: [Other specified symptoms and signs involving the circulatory and respiratory systems] Episodic Other connective tissue disease (20 sources) History of total knee arthroplasty; Translations: [Presence of left artificial knee joint] Onset: 10-18-2020 10-19-2020 Chronic Other connective tissue disease (1 source) Presence of left artificial knee joint; Translations: [S/P total knee arthroplasty, left] Onset: 03-27-2022 Chronic Other connective tissue disease (4 sources) Muscle pain; Translations: [Myalgia, unspecified site] Episodic Other connective tissue disease (2 sources) Decreased range of cervical spine movement ; Translations: [Other symptoms and signs involving the musculoskeletal system] Episodic Other connective tissue disease (5 sources) Myofascial pain; Translations: [Myalgia, other site] Episodic Other connective tissue disease (1 source) Pain in left foot; Translations: [Pain in left foot] Episodic Other connective tissue disease (2 sources) Myalgia, other site; Translations: [Myofascial pain] Onset: 09-04-2023 Episodic Other diseases of bladder and urethra (20 sources) Overactive bladder; Translations: [Overactive bladder] Onset: 05-30-2015 08-22-2015 Chronic Other diseases of bladder and urethra (1 source) Spasm of bladder; Translations: [Other specified disorders of bladder] 10-19-2023 Chronic Other ear and sense organ disorders (20 sources) Hearing loss; Translations: [Unspecified hearing loss, unspecified ear] 03-05-2019 Chronic Other gastrointestinal disorders (20 sources) Irritable bowel syndrome characterized by constipation; Translations: [Irritable bowel syndrome with constipation] Onset: 03-03-2018 07-20-2019 Chronic Other gastrointestinal disorders (1 source) Irritable bowel syndrome with constipation; Translations: [Irritable bowel syndrome with constipation] Onset: 07-20-2019 Chronic Other gastrointestinal disorders (1 source) Loose stool; Translations: [Other fecal abnormalities] Episodic Other hereditary and degenerative nervous system conditions (20 sources) Restless legs; Translations: [Restless legs syndrome] Onset: 06-04-2019 06-04-2019 Chronic Other hereditary and degenerative nervous system conditions (2 sources) Restless legs syndrome; Translations: [RLS (restless legs syndrome)] Onset: 06-04-2019 Chronic Other lower respiratory disease (1 source) Cough; Translations: [Acute cough] Episodic Other lower respiratory disease (1 source) Other abnormalities of breathing; Translations: [Gasping for breath] Onset: 12-11-2023 Episodic Other lower respiratory disease (1 source) Apnea, not elsewhere classified; Translations: [Witnessed episode of apnea] Onset: 12-11-2023 Episodic Other lower respiratory disease (1 source) Snoring; Translations: [Snoring] Onset: 12-11-2023 Episodic Other nervous system disorders (4 sources) Chronic pain; Translations: [Other chronic pain] Chronic Other nervous system disorders (1 source) Abnormal gait; Translations: [Gait difficulty] Episodic Other nervous system disorders (2 sources) Skin sensation disturbance; Translations: [Unspecified disturbances of skin sensation] Episodic Other nervous system disorders (1 source) Impaired cognition; Translations: [Other symptoms and signs involving cognitive functions and awareness] 06-11-2023 Episodic Other nervous system disorders (3 sources) Impairment of balance; Translations: [Other abnormalities of gait and mobility] 06-17-2023 Episodic Other nervous system disorders (1 source) Personal history of other diseases of the nervous system and sense organs; Translations: [History of obstructive sleep apnea] Onset: 12-11-2023 Episodic Other nervous system disorders (1 source) Other abnormalities of gait and mobility; Translations: [Balance problems] Onset: 09-29-2023 Episodic Other non-traumatic joint disorders (1 source) Knee pain; Translations: [Acute pain of left knee] Episodic Other non-traumatic joint disorders (1 source) Knee stiff; Translations: [Stiffness of left knee, not elsewhere classified] Episodic Other non-traumatic joint disorders (2 sources) Multiple joint pain; Translations: [Pain in unspecified joint] Episodic Other nutritional; endocrine; and metabolic disorders (20 sources) Obesity; Translations: [Other obesity due to excess calories] Onset: 03-03-2018 03-03-2018 Chronic Other nutritional; endocrine; and metabolic disorders (20 sources) Intolerance to lactose; Translations: [Lactose intolerance, unspecified] Onset: 03-05-2019 03-05-2019 Chronic Other nutritional; endocrine; and metabolic disorders (20 sources) Hypermagnesemia; Translations: [Hypermagnesemia] Onset: 03-05-2019 03-05-2019 Chronic Other nutritional; endocrine; and metabolic disorders (20 sources) Hypercalcemia; Translations: [Hypercalcemia] Onset: 05-07-2021 05-07-2021 Chronic Other nutritional; endocrine; and metabolic disorders (3 sources) Obese class II; Translations: [Obesity, unspecified] Chronic Other nutritional; endocrine; and metabolic disorders (20 sources) Obesity caused by energy imbalance; Translations: [Other obesity due to excess calories] Onset: 03-03-2018 03-03-2018 Chronic Other nutritional; endocrine; and metabolic disorders (2 sources) Hypercalcemia; Translations: [Hypercalcemia] Onset: 06-12-2023 Chronic Other nutritional; endocrine; and metabolic disorders (2 sources) Abnormal weight loss; Translations: [Abnormal weight loss] Episodic Other skin disorders (1 source) Loss of hair; Translations: [Nonscarring hair loss, unspecified] 06-11-2023 Episodic Other upper respiratory infections (6 sources) Acute pharyngitis, unspecified; Translations: [Acute upper respiratory infection] Onset: 02-21-2017 Episodic Prolapse of female genital organs (1 source) Midline cystocele; Translations: [Cystocele, midline] Chronic Residual codes; unclassified (20 sources) Obstructive sleep apnea syndrome; Translations: [Obstructive sleep apnea (adult) (pediatric)] Onset: 09-02-2018 11-13-2021 Chronic Residual codes; unclassified (1 source) Upper airway resistance syndrome; Translations: [Other sleep disorders] 08-15-2023 Chronic Residual codes; unclassified (2 sources) Obstructive sleep apnea (adult) (pediatric); Translations: [JORDAN (obstructive sleep apnea)] Onset: 11-13-2021 Chronic Residual codes; unclassified (3 sources) Other sleep disorders; Translations: [Unrefreshed by sleep] Onset: 12-09-2023 Chronic Residual codes; unclassified (1 source) Other hypersomnia; Translations: [Excessive daytime sleepiness] Onset: 12-11-2023 Chronic Residual codes; unclassified (2 sources) Insomnia; Translations: [Insomnia, unspecified] 08-15-2023 Episodic Residual codes; unclassified (1 source) Pain; Translations: [Pain, unspecified] 03-03-2023 Episodic Spondylosis; intervertebral disc disorders; other back problems (20 sources) Cervical spondylosis; Translations: [Spondylosis without myelopathy or radiculopathy, cervical region] Onset: 09-19-2021 09-26-2021 Chronic Substance-related disorders (1 source) Nicotine dependence, unspecified, uncomplicated; Translations: [Nicotine dependence, unspecified, uncomplicated] Onset: 02-21-2017 Chronic Thyroid disorders (20 sources) Acquired hypothyroidism; Translations: [Hypothyroidism, unspecified] Onset: 08-22-2015 08-22-2015 Chronic Transient cerebral ischemia (3 sources) Cerebral ischemia; Translations: [Transient cerebral ischemic attack, unspecified] Onset: 04-03-2023 09-29-2023 Chronic Unclassified (1 source) NO SHOW Unclassified (1 source) New Patient Evaluation Onset: 01-08-2023 Unclassified (1 source) Dense breast tissue on mammogram; Translations: [Dense breast tissue on mammogram] Onset: 08-28-2023 Urinary tract infections (5 sources) Acute cystitis; Translations: [Acute cystitis without hematuria] Episodic Viral infection (1 source) Viral disease; Translations: [Viral infection, unspecified] 10-18-2023 Episodic Past or Other Problems Problem Classification Problem Date Documented Da te Episodic/Chronic Abdominal hernia (20 sources) Diaphragmatic hernia; Translations: [Diaphragmatic hernia without obstruction or gangrene] Onset: 02-05-2006 09-15-2019 Episodic Abdominal pain (10 sources) Left flank pain; Translations: [Unspecified abdominal pain] Onset: 12-27-2022 Episodic Administrative/social admission (20 sources) Advance directive discussed with patient; Translations: [Other specified counseling] Onset: 04-02-2023 04-02-2023 Episodic Blindness and vision defects (2 sources) Unspecified visual disturbance; Translations: [Vision disturbance] Onset: 04-03-2023 Episodic Diabetes mellitus without complication (20 sources) Prediabetes; Translations: [Prediabetes] Onset: 06-29-2018 10-05-2020 Episodic Nausea and vomiting (20 sources) Postoperative nausea and vomiting; Translations: [Nausea with vomiting, unspecified] Onset: 08-07-2020 08-07-2020 Episodic Other aftercare (20 sources) Drug therapy finding; Translations: [Other longterm (current) drug therapy] Onset: 03-03-2018 03-03-2018 Episodic Other aftercare (20 sources) Patient encounter status; Translations: [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] Onset: 03-05-2019 09-15-2019 Episodic Other bone disease and musculoskeletal deformities (20 sources) Osteopenia; Translations: [Other specified disorders of bone density and structure, other site] Onset: 11-27-2020 11-27-2020 Episodic Other circulatory disease (20 sources) History of transient ischemic attack; Translations: [Personal history of transient ischemic attack (TIA), and cerebral infarction without residual deficits] Onset: 11-05-2019 03-02-2020 Episodic Other circulatory disease (20 sources) Low blood pressure; Translations: [Hypotension, unspecified] Onset: 10-05-2020 10-05-2020 Episodic Other circulatory disease (3 sources) Personal history of transient ischemic attack (TIA), and cerebral infarction without residual deficits; Translations: [History of transient ischemic attack (TIA)] Onset: 03-02-2020 Episodic Other connective tissue disease (20 sources) Dropped head syndrome; Translations: [Other symptoms and signs involving the musculoskeletal system] Onset: 06-24-2022 06-24-2022 Episodic Other connective tissue disease (20 sources) H/O: musculoskeletal disease; Translations: [Personal history of other diseases of the musculoskeletal system and connective tissue] Onset: 06-17-2023 06-17-2023 Episodic Other connective tissue disease (1 source) Personal history of other diseases of the musculoskeletal system and connective tissue; Translations: [Personal history of fibromyalgia] Onset: 06-17-2023 Episodic Other disorders of stomach and duodenum (20 sources) Gastric diverticulum; Translations: [Gastric diverticulum] Onset: 03-27-2023 Episodic Other disorders of stomach and duodenum (20 sources) Gastroparesis syndrome; Translations: [Gastroparesis] Onset: 01-08-2023 Episodic Other disorders of stomach and duodenum (1 source) Gastroparesis; Translations: [Gastroparesis] Onset: 03-31-2023 Episodic Other disorders of stomach and duodenum (1 source) Gastric diverticulum; Translations: [Gastric diverticulum] Onset: 03-27-2023 Episodic Other gastrointestinal disorders (20 sources) Constipation; Translations: [Other constipation] Onset: 07-21-2019 07-21-2019 Episodic Other injuries and conditions due to external causes (20 sources) At high risk for fall; Translations: [History of falling] Onset: 09-02-2018 09-02-2018 Episodic Other lower respiratory disease (20 sources) Multiple nodules of lung; Translations: [Other nonspecific abnormal finding of lung field] Onset: 12-11-2017 03-16-2021 Episodic Other nervous system disorders (1 source) Other symptoms and signs involving cognitive functions and awareness; Translations: [Brain fog] Onset: 06-11-2023 Episodic Other non-traumatic joint disorders (20 sources) Pain in left knee; Translations: [Pain in joint, lower leg] Onset: 06-19-2019 03-02-2020 Episodic Other non-traumatic joint disorders (1 source) Pain in unspecified joint; Translations: [Pain in joint, multiple sites] Onset: 01-27-2023 Episodic Other nutritional; endocrine; and metabolic disorders (1 source) Abnormal weight loss; Translations: [Abnormal weight loss] Onset: 01-16-2023 Episodic Other screening for suspected conditions (not mental disorders or infectious disease) (6 sources) Cancer cervix screening status; Translations: [Encounter for screening for malignant neoplasm of cervix] Onset: 03-05-2019 Episodic Other skin disorders (1 source) Nonscarring hair loss, unspecified; Translations: [Hair loss] Onset: 06-11-2023 Episodic Residual codes; unclassified (20 sources) Active living will ; Translations: [Other specified health status] Onset: 04-02-2023 04-02-2023 Episodic Residual codes; unclassified (3 sources) Insomnia, unspecified; Translations: [Insomnia, unspecified type] Onset: 08-15-2023 Episodic Residual codes; unclassified (1 source) Pain, unspecified; Translations: [Pain] Onset: 03-03-2023 Episodic Screening and history of mental health and substance abuse codes (20 sources) Ex-smoker; Translations: [Personal history of nicotine dependence] Onset: 08-22-2015 09-15-2019 Episodic Spondylosis; intervertebral disc disorders; other back problems (20 sources) Backache; Translations: [Dorsalgia, unspecified] Onset: 01-11-2013 02-20-2015 Episodic Results Test Name Value Interpretation Reference Range Facil ity Vital Signs Date Time Vital Sign Value Performing Clinician Brielle king 11-01-2023 09:43-0500 Body temperature 98.4 [degF] Lia Winkler PA-C Work Phone: [facility] 11-01-2023 09:43-0500 Body weight 80.92 kg Lia Winkler PA-C Work Phone: [facility] 11-01-2023 09:43-0500 Diastolic blood pressure 75 mm[Hg] Lia Winkler PA-C Work Phone: [facility] 11-01-2023 09:43-0500 Heart rate 74 /min Liaalfreda Diamnody PA-C Work Phone: [facility] 11-01-2023 09:43-0500 Respiratory rate 18 /min Lia Athy PA-C Work Phone: [facility] 11-01-2023 09:43-0500 SaO2% (BldA) [Mass fraction] 98 % Lia Athy PA-C Work Phone: [facility] 11-01-2023 09:43-0500 Systolic blood pressure 121 mm[Hg] Lia Athy PA-C Work Phone: [facility] 10-29-2023 10:27-0500 Body height 160 cm Gogo Green CARE PROGRAM RESIDENT.DATABASE SECURITY EXPERT Work Phone: [facility] 10-29-2023 10:27-0500 Body weight 83.01 kg Gogo Lowery CARE PROGRAM RESIDENT.DATABASE SECURITY EXPERT Work Phone: [facility] 10-29-2023 10:27-0500 Diastolic blood pressure 63 mm[Hg] Gogo Green CARE PROGRAM RESIDENT.DATABASE SECURITY EXPERT Work Phone: [facility] 10-29-2023 10:27-0500 Heart rate 68 /min Gogo Green CARE PROGRAM RESIDENT.DATABASE SECURITY EXPERT Work Phone: [facility] 10-29-2023 10:27-0500 SaO2% (BldA) [Mass fraction] 97 % Gogo Green CARE PROGRAM RESIDENT.DATABASE SECURITY EXPERT Work Phone: [facility] 10-29-2023 10:27-0500 Systolic blood pressure 119 mm[Hg] Gogo Green CARE PROGRAM RESIDENT.DATABASE SECURITY EXPERT Work Phone: [facility] 10-27-2023 12:56-0500 Body weight 83.01 kg Jackie Mccoy CARE PROGRAM RESIDENT.DATABASE SECURITY EXPERT Work Phone: [facility] 10-27-2023 12:56-0500 Diastolic blood pressure 78 mm[Hg] Jackie Mccoy CARE PROGRAM RESIDENT.DATABASE SECURITY EXPERT Work Phone: [facility] 10-27-2023 12:56-0500 Heart rate 64 /min Jackie Mccoy APRN.DATABASE SECURITY EXPERT Work Phone: [facility] 10-27-2023 12:56-0500 Respiratory rate 16 /min Jackie Mccoy APRN.DATABASE SECURITY EXPERT Work Phone: [facility] 10-27-2023 12:56-0500 Systolic blood pressure 124 mm[Hg] Jackie Mccoy APRN.DATABASE SECURITY EXPERT Work Phone: [facility] 10-19-2023 09:24-0500 Body temperature 100.4 [degF] Noy Reis APRN.DATABASE SECURITY EXPERT Work Phone: [facility] 10-19-2023 09:24-0500 Body weight 82.74 kg Noy Reis APRN.DATABASE SECURITY EXPERT Work Phone: [facility] 10-19-2023 09:24-0500 Diastolic blood pressure 74 mm[Hg] Noy Reis APRN.DATABASE SECURITY EXPERT Work Phone: [facility] 10-19-2023 09:24-0500 Heart rate 86 /min Noy Reis APRN.DATABASE SECURITY EXPERT Work Phone: [facility] 10-19-2023 09:24-0500 Respiratory rate 18 /min Noy Reis APRN.DATABASE SECURITY EXPERT Work Phone: [facility] 10-19-2023 09:24-0500 SaO2% (BldA) [Mass fraction] 99 % Noy Reis APRN.DATABASE SECURITY EXPERT Work Phone: [facility] 10-19-2023 09:24-0500 Systolic blood pressure 122 mm[Hg] Noy Reis APRN.DATABASE SECURITY EXPERT Work Phone: [facility] 09-29-2023 12:46-0500 Body weight 83.46 kg Jackie Mccoy APRN.DATABASE SECURITY EXPERT Work Phone: [facility] 09-29-2023 12:46-0500 Diastolic blood pressure 78 mm[Hg] Jackie Mccoy APRN.DATABASE SECURITY EXPERT Work Phone: [facility] 09-29-2023 12:46-0500 Heart rate 80 /min Jackie Knoble CARE PROGRAM RESIDENT.DATABASE SECURITY EXPERT Work Phone: [facility] 09-29-2023 12:46-0500 Respiratory rate 16 /min Jackie Mccoy CARE PROGRAM RESIDENT.DATABASE SECURITY EXPERT Work Phone: [facility] 09-29-2023 12:46-0500 Systolic blood pressure 120 mm[Hg] Jackie Almarazoble CARE PROGRAM RESIDENT.DATABASE SECURITY EXPERT Work Phone: [facility] 09-14-2023 15:36-0400 Body temperature 97.5 [degF] Trang Praisler-Wood CARE PROGRAM RESIDENT.DATABASE SECURITY EXPERT Work Phone: [facility] 09-14-2023 15:36-0400 Body weight 84.37 kg Trang Praisler-Wood CARE PROGRAM RESIDENT.DATABASE SECURITY EXPERT Work Phone: [facility] 09-14-2023 15:36-0400 Diastolic blood pressure 76 mm[Hg] Trang Praisler-Wood CARE PROGRAM RESIDENT.DATABASE SECURITY EXPERT Work Phone: [facility] 09-14-2023 15:36-0400 Heart rate 87 /min Trang Praisler-Wood CARE PROGRAM RESIDENT.DATABASE SECURITY EXPERT Work Phone: [facility] 09-14-2023 15:36-0400 Respiratory rate 18 /min Trang Praisler-Wood CARE PROGRAM RESIDENT.DATABASE SECURITY EXPERT Work Phone: [facility] 09-14-2023 15:36-0400 SaO2% (BldA) [Mass fraction] 98 % Trang Praisler-Wood CARE PROGRAM RESIDENT.DATABASE SECURITY EXPERT Work Phone: [facility] 09-14-2023 15:36-0400 Systolic blood pressure 128 mm[Hg] Trang Praisler-Wood CARE PROGRAM RESIDENT.DATABASE SECURITY EXPERT Work Phone: [facility] 09-04-2023 12:51-0400 Heart rate 70 /min Jenna Prebish CARE PROGRAM RESIDENT.DATABASE SECURITY EXPERT Work Phone: [facility] 09-04-2023 12:51-0400 Respiratory rate 18 /min Jenna Prebish CARE PROGRAM RESIDENT.DATABASE SECURITY EXPERT Work Phone: [facility] 09-04-2023 12:51-0400 SaO2% (BldA) [Mass fraction] 94 % Jenna Morganvickie PEACOCK Work Phone: [facility] 08-15-2023 15:38-0400 Body weight 84.19 kg Loc Hoffman Jr., MD Work Phone: [facility] 08-15-2023 15:38-0400 Diastolic blood pressure 71 mm[Hg] Loc Hoffman Jr., MD Work Phone: [facility] 08-15-2023 15:38-0400 Heart rate 75 /min Loc Hoffman Jr., MD Work Phone: [facility] 08-15-2023 15:38-0400 Respiratory rate 16 /min Loc Hoffman Jr., MD Work Phone: [facility] 08-15-2023 15:38-0400 SaO2% (BldA) [Mass fraction] 98 % Loc Hoffman Jr., MD Work Phone: [facility] 08-15-2023 15:38-0400 Systolic blood pressure 103 mm[Hg] Loc Hoffman Jr., MD Work Phone: [facility] 08-06-2023 16:33-0400 Body temperature 98.1 [degF] Lia Athy PA-C Work Phone: [facility] 08-06-2023 16:33-0400 Body weight 84.55 kg Lia Athy PA-C Work Phone: [facility] 08-06-2023 16:33-0400 Diastolic blood pressure 72 mm[Hg] Lia Athy PA-C Work Phone: [facility] 08-06-2023 16:33-0400 Heart rate 70 /min Lia Athy PA-C Work Phone: [facility] 08-06-2023 16:33-0400 Respiratory rate 18 /min Lia Athy PA-C Work Phone: [facility] 08-06-2023 16:33-0400 SaO2% (BldA) [Mass fraction] 96 % Lia HICKS-C Work Phone: [facility] 08-06-2023 16:33-0400 Systolic blood pressure 112 mm[Hg] Lia Winkler PA-C Work Phone: [facility] 07-08-2023 13:54-0400 Body weight 85.73 kg Coral [place] CARE PROGRAM RESIDENT.DATABASE SECURITY EXPERT Work Phone: [facility] 07-08-2023 13:54-0400 Diastolic blood pressure 78 mm[Hg] Coral [place] CARE PROGRAM RESIDENT.DATABASE SECURITY EXPERT Work Phone: [facility] 07-08-2023 13:54-0400 Heart rate 61 /min Coral [place] CARE PROGRAM RESIDENT.DATABASE SECURITY EXPERT Work Phone: [facility] 07-08-2023 13:54-0400 Respiratory rate 14 /min Coral [place] CARE PROGRAM RESIDENT.DATABASE SECURITY EXPERT Work Phone: [facility] 07-08-2023 13:54-0400 SaO2% (BldA) [Mass fraction] 99 % Coral [place] CARE PROGRAM RESIDENT.DATABASE SECURITY EXPERT Work Phone: [facility] 07-08-2023 13:54-0400 Systolic blood pressure 126 mm[Hg] Coral [place] CARE PROGRAM RESIDENT.DATABASE SECURITY EXPERT Work Phone: [facility] 06-17-2023 14:09-0400 Body temperature 98.4 [degF] Kyle Sylvester MD Work Phone: [facility] 06-17-2023 14:09-0400 Body weight 85.28 kg Kyle Sylvester MD Work Phone: [facility] 06-17-2023 14:09-0400 Diastolic blood pressure 82 mm[Hg] Kyle Sylvester MD Work Phone: [facility] 06-17-2023 14:09-0400 Heart rate 69 /min Kyle Sylvester MD Work Phone: [facility] 06-17-2023 14:09-0400 Respiratory rate 18 /min Kyle Sylvester MD Work Phone: [facility] 06-17-2023 14:090400 SaO2% (BldA) [Mass fraction] 96 % Kyle Sylvester MD Work Phone: [facility] 06-17-2023 14:09-0400 Systolic blood pressure 122 mm[Hg] Kyle Sylvester MD Work Phone: [facility] 06-11-2023 13:25-0400 Body temperature 98.91 [degF] Olvin Richard PA-C Work Phone: [facility] 06-11-2023 13:25-0400 Body weight 84.37 kg Olvin Richard PA-C Work Phone: [facility] 06-11-2023 13:25-0400 Diastolic blood pressure 80 mm[Hg] Olvin Richard PA-C Work Phone: [facility] 06-11-2023 13:25-0400 Heart rate 78 /min Olvin Richard PA-C Work Phone: [facility] 06-11-2023 13:25-0400 Respiratory rate 16 /min Olvin Richard PA-C Work Phone: [facility] 06-11-2023 13:25-0400 Systolic blood pressure 100 mm[Hg] Olvin Richard PA-C Work Phone: [facility] 06-09-2023 09:41-0400 Body height 162.6 cm Abel Domínguez MD Work Phone: [facility] 06-09-2023 09:41-0400 Body weight 85.55 kg Abel Domínguez MD Work Phone: [facility] 06-09-2023 09:41-0400 Diastolic blood pressure 62 mm[Hg] Abel Domínguez MD Work Phone: [facility] 06-09-2023 09:41-0400 Heart rate 71 /min Abel Domínguez MD Work Phone: [facility] 06-09-2023 09:41-0400 Systolic blood pressure 113 mm[Hg] Abel Domínguez MD Work Phone: [facility] 03-13-2023 14:15-0400 Heart rate 73 /min Jese Mejia MD Work Phone: [facility] 03-13-2023 14:15-0400 Respiratory rate 16 /min Jese Mejia MD Work Phone: [facility] 03-13-2023 14:15-0400 SaO2% (BldA) [Mass fraction] 98 % Jese Mejia MD Work Phone: [facility] 03-06-2023 10:47-0400 Body height 160 cm Abel Domínguez MD Work Phone: [facility] 03-06-2023 10:47-0400 Body weight 88.09 kg Abel Domínguez MD Work Phone: [facility] 03-06-2023 10:47-0400 Diastolic blood pressure 66 mm[Hg] Abel Domínguez MD Work Phone: [facility] 03-06-2023 10:47-0400 Heart rate 76 /min Abel Domínguez MD Work Phone: [facility] 03-06-2023 10:47-0400 Systolic blood pressure 118 mm[Hg] Abel Domínguez MD Work Phone: [facility] 02-19-2023 13:50-0400 Diastolic blood pressure 83 mm[Hg] Abel Domínguez MD Work Phone: [facility] 02-19-2023 13:50-0400 Heart rate 66 /min Abel Domínguez MD Work Phone: [facility] 02-19-2023 13:50-0400 Respiratory rate 21 /min Abel Domínguez MD Work Phone: [facility] 02-19-2023 13:50-0400 SaO2% (BldA) [Mass fraction] 99 % Abel Domínguez MD Work Phone: [facility] 02-19-2023 13:50-0400 Systolic blood pressure 105 mm[Hg] Abel Domínguez MD Work Phone: [facility] 02-19-2023 13:34-0400 Body temperature 97.5 [degF] Abel Domínguez MD Work Phone: [facility] 02-19-2023 11:46-0400 Body height 160 cm Abel Domínguez MD Work Phone: [facility] 02-19-2023 11:46-0400 Body weight 87.54 kg Abel Domínguez MD Work Phone: [facility] 01-27-2023 10:02-0400 Body height 156.8 cm Laura Dorantes MD Work Phone: [facility] 01-27-2023 10:02-0400 Body temperature 98.71 [degF] Laura Dorantes MD Work Phone: [facility] 01-27-2023 10:02-0400 Body weight 87.54 kg Laura Dorantes MD Work Phone: [facility] 01-27-2023 10:02-0400 Diastolic blood pressure 56 mm[Hg] Laura Dorantes MD Work Phone: [facility] 01-27-2023 10:02-0400 Heart rate 80 /min Laura Dorantes MD Work Phone: [facility] 01-27-2023 10:02-0400 Respiratory rate 14 /min Laura Dorantes MD Work Phone: [facility] 01-27-2023 10:02-0400 Systolic blood pressure 111 mm[Hg] Laura Dorantes MD Work Phone: [facility] 01-16-2023 11:20-0500 Body weight 87.[address] Work Phone: [facility] 01-08-2023 08:53-0500 Body height 160 cm Abel Domínguez MD Work Phone: [facility] 01-08-2023 08:53-0500 Body weight 86.46 kg Abel Domínguez MD Work Phone: [facility] 01-08-2023 08:53-0500 Diastolic blood pressure 85 mm[Hg] Abel Domínguez MD Work Phone: [facility] 01-08-2023 08:53-0500 Heart rate 97 /min Abel Domínguez MD Work Phone: [facility] 01-08-2023 08:53-0500 Systolic blood pressure 130 mm[Hg] Abel Domínguez MD Work Phone: [facility] 12-19-2022 14:20-0500 Heart rate 72 /min Filiberto Wappapello CARE PROGRAM RESIDENT.DATABASE SECURITY EXPERT Work Phone: [facility] 12-19-2022 14:20-0500 Respiratory rate 16 /min Filiberto Milly CARE PROGRAM RESIDENT.DATABASE SECURITY EXPERT Work Phone: [facility] 12-19-2022 14:20-0500 SaO2% (BldA) [Mass fraction] 97 % Filiberto Milly CARE PROGRAM RESIDENT.DATABASE SECURITY EXPERT Work Phone: [facility] 12-05-2022 10:27-0500 Body weight 90.81 kg Olvin Richard PA-C Work Phone: [facility] 12-05-2022 10:27-0500 Diastolic blood pressure 78 mm[Hg] Olvin Richard PA-C Work Phone: [facility] 12-05-2022 10:27-0500 Heart rate 81 /min Olvin Richard PA-C Work Phone: [facility] 12-05-2022 10:27-0500 Respiratory rate 16 /min Olvin Richard PA-C Work Phone: [facility] 12-05-2022 10:27-0500 SaO2% (BldA) [Mass fraction] 93 % Olvin Richard PA-C Work Phone: [facility] 12-05-2022 10:27-0500 Systolic blood pressure 118 mm[Hg] Olvin Richard PA-C Work Phone: [facility] 12-02-2022 13:18-0500 Body temperature 97.7 [degF] Ana Morgan CARE PROGRAM RESIDENT.DATABASE SECURITY EXPERT Work Phone: [facility] 12-02-2022 13:18-0500 Body weight 91.17 kg Ana Morgan CARE PROGRAM RESIDENT.DATABASE SECURITY EXPERT Work Phone: [facility] 12-02-2022 13:18-0500 Diastolic blood pressure 86 mm[Hg] Ana Morgan CARE PROGRAM RESIDENT.DATABASE SECURITY EXPERT Work Phone: [facility] 12-02-2022 13:18-0500 Heart rate 78 /min Ana Morgan CARE PROGRAM RESIDENT.DATABASE SECURITY EXPERT Work Phone: [facility] 12-02-2022 13:18-0500 Respiratory rate 18 /min Ana Morgan CARE PROGRAM RESIDENT.DATABASE SECURITY EXPERT Work Phone: [facility] 12-02-2022 13:18-0500 SaO2% (BldA) [Mass fraction] 96 % Ana Morgan CARE PROGRAM RESIDENT.DATABASE SECURITY EXPERT Work Phone: [facility] 12-02-2022 13:18-0500 Systolic blood pressure 120 mm[Hg] Ana Morgan CARE PROGRAM RESIDENT.DATABASE SECURITY EXPERT Work Phone: [facility] 10-28-2022 12:44-0500 Body height 161 cm Lizz Riggs PA-C Work Phone: [facility] 10-28-2022 12:44-0500 Diastolic blood pressure 70 mm[Hg] Lizz Melaraka PA-C Work Phone: [facility] 10-28-2022 12:44-0500 Heart rate 64 /min Lizz Kalka PA-C Work Phone: [facility] 10-28-2022 12:44-0500 Systolic blood pressure 108 mm[Hg] Lizz Keltonka PA-C Work Phone: [facility] 10-16-2022 10:37-0500 Body height 160 cm Koli Green CARE PROGRAM RESIDENT.DATABASE SECURITY EXPERT Work Phone: [facility] 10-16-2022 10:37-0500 Body weight 92.99 kg Johni Green CARE PROGRAM RESIDENT.DATABASE SECURITY EXPERT Work Phone: [facility] 10-16-2022 10:37-0500 Diastolic blood pressure 66 mm[Hg] Koli Green CARE PROGRAM RESIDENT.DATABASE SECURITY EXPERT Work Phone: [facility] 10-16-2022 10:37-0500 Heart rate 69 /min Koli Green CARE PROGRAM RESIDENT.DATABASE SECURITY EXPERT Work Phone: [facility] 10-16-2022 10:37-0500 Systolic blood pressure 129 mm[Hg] Koli Green CARE PROGRAM RESIDENT.DATABASE SECURITY EXPERT Work Phone: [facility] 10-03-2022 15:07-0500 Body height 160 cm Krys Mitchellie CARE PROGRAM RESIDENT.DATABASE SECURITY EXPERT Work Phone: [facility] 10-03-2022 15:07-0500 Body weight 93.35 kg Krys Sykes CARE PROGRAM RESIDENT.DATABASE SECURITY EXPERT Work Phone: [facility] 10-03-2022 15:07-0500 Diastolic blood pressure 72 mm[Hg] Krys Mitchellie CARE PROGRAM RESIDENT.DATABASE SECURITY EXPERT Work Phone: [facility] 10-03-2022 15:07-0500 Systolic blood pressure 128 mm[Hg] Krys Mitchellie CARE PROGRAM RESIDENT.DATABASE SECURITY EXPERT Work Phone: [facility] 09-26-2022 13:25-0500 Heart rate 86 /min Jese Mejia MD Work Phone: [facility] 09-26-2022 13:25-0500 Respiratory rate 18 /min Jese Mejia MD Work Phone: [facility] 09-26-2022 13:25-0500 SaO2% (BldA) [Mass fraction] 96 % Jese Mejia MD Work Phone: [facility] 08-08-2022 13:08-0400 Heart rate 63 /min Jese Mejia MD Work Phone: [facility] 08-08-2022 13:08-0400 Respiratory rate 16 /min Jese Mejia MD Work Phone: [facility] 08-08-2022 13:08-0400 SaO2% (BldA) [Mass fraction] 95 % Jese Mejia MD Work Phone: [facility] 07-23-2022 13:36-0400 Body height 160 cm Patricio Archer Jr., MD Work Phone: [facility] 07-23-2022 13:36-0400 Body weight 91.63 kg Patricio Archer Jr., MD Work Phone: [facility] 07-23-2022 13:36-0400 Diastolic blood pressure 73 mm[Hg] Patricio Archer Jr., MD Work Phone: [facility] 07-23-2022 13:36-0400 Heart rate 68 /min Patricio Archer Jr., MD Work Phone: [facility] 07-23-2022 13:36-0400 Respiratory rate 20 /min Patricio Archer Jr., MD Work Phone: [facility] 07-23-2022 13:36-0400 Systolic blood pressure 113 mm[Hg] Patricio Archer Jr., MD Work Phone: [facility] 07-16-2022 06:23-0400 Body height 160 cm Catherine Perez CARE PROGRAM RESIDENT.DATABASE SECURITY EXPERT Work Phone: [facility] 07-16-2022 06:23-0400 Body weight 86.64 kg Catherine Perez CARE PROGRAM RESIDENT.DATABASE SECURITY EXPERT Work Phone: [facility] 07-10-2022 14:13-0400 Body height 160 cm Divya Healy MD, PhD Work Phone: [facility] 07-10-2022 14:13-0400 Body weight 86.64 kg Divya Healy MD, PhD Work Phone: [facility] 07-10-2022 14:13-0400 Diastolic blood pressure 64 mm[Hg] Divya Healy MD, PhD Work Phone: [facility] 07-10-2022 14:13-0400 Heart rate 90 /min Divya Healy MD, PhD Work Phone: [facility] 07-10-2022 14:13-0400 Systolic blood pressure 104 mm[Hg] Divya Healy MD, PhD Work Phone: [facility] 07-04-2022 13:51-0400 Diastolic blood pressure 78 mm[Hg] Jese Mejia MD Work Phone: [facility] 07-04-2022 13:51-0400 Heart rate 95 /min eJse Mejia MD Work Phone: [facility] 07-04-2022 13:51-0400 Respiratory rate 17 /min Jese Mejia MD Work Phone: [facility] 07-04-2022 13:51-0400 SaO2% (BldA) [Mass fraction] 95 % Jese Mejia MD Work Phone: [facility] 07-04-2022 13:51-0400 Systolic blood pressure 118 mm[Hg] Jese Mejia MD Work Phone: [facility] 06-26-2022 19:41-0400 Body weight 90.27 kg Pedro Pulido MD Work Phone: [facility] 06-26-2022 19:41-0400 Diastolic blood pressure 78 mm[Hg] Pedro Pulido MD Work Phone: [facility] 06-26-2022 19:41-0400 Heart rate 74 /min Pedro Pulido MD Work Phone: [facility] 06-26-2022 19:41-0400 Respiratory rate 16 /min Pedro Pulido MD Work Phone: [facility] 06-26-2022 19:41-0400 Systolic blood pressure 122 mm[Hg] Pedro Pulido MD Work Phone: [facility] 06-24-2022 15:44-0400 Body height 160 cm Ashley Rivera MD Work Phone: [facility] 06-24-2022 15:44-0400 Body weight 92.5 kg Ashley Rivera MD Work Phone: [facility] 06-24-2022 15:44-0400 Diastolic blood pressure 73 mm[Hg] Ashley Rivera MD Work Phone: [facility] 06-24-2022 15:44-0400 Heart rate 74 /min Ashley Rivera MD Work Phone: [facility] 06-24-2022 15:44-0400 Respiratory rate 16 /min Ashley Rivera MD Work Phone: [facility] 06-24-2022 15:44-0400 SaO2% (BldA) [Mass fraction] 97 % Ashley Rivera MD Work Phone: [facility] 06-24-2022 15:44-0400 Systolic blood pressure 117 mm[Hg] Ashley Rivera MD Work Phone: [facility] 06-24-2022 07:11-0400 Body height 160 cm Catherine Perez CARE PROGRAM RESIDENT.DATABASE SECURITY EXPERT Work Phone: [facility] 06-24-2022 07:11-0400 Body weight 92.99 kg Catherine Perez CARE PROGRAM RESIDENT.DATABASE SECURITY EXPERT Work Phone: [facility] 06-23-2022 13:49-0400 Body temperature 98.4 [degF] Kyle Garrett CARE PROGRAM RESIDENT.DATABASE SECURITY EXPERT Work Phone: [facility] 06-23-2022 13:49-0400 Body weight 92.08 kg Kyle Tami CARE PROGRAM RESIDENT.DATABASE SECURITY EXPERT Work Phone: [facility] 06-23-2022 13:49-0400 Diastolic blood pressure 72 mm[Hg] Kyle Garrett CARE PROGRAM RESIDENT.DATABASE SECURITY EXPERT Work Phone: [facility] 06-23-2022 13:49-0400 Heart rate 90 /[facility] C[facility] PROGRAM RESIDENT.DATABASE SECURITY EXPERT Work Phone: [facility] 06-23-2022 13:49-0400 Respiratory rate 16 /min [facility] CARE PROGRAM RESIDENT.DATABASE SECURITY EXPERT Work Phone: [facility] 06-23-2022 13:49-0400 SaO2% (BldA) [Mass fraction] 96 % [facility] CARE PROGRAM RESIDENT.DATABASE SECURITY EXPERT Work Phone: [facility] 06-23-2022 13:49-0400 Systolic blood pressure 118 mm[Hg] [facility] CARE PROGRAM RESIDENT.DATABASE SECURITY EXPERT Work Phone: [facility] 06-20-2022 14:27-0400 Diastolic blood pressure 78 mm[Hg] Jese Mejia MD Work Phone: [facility] 06-20-2022 14:27-0400 Heart rate 82 /min Jese Mejia MD Work Phone: [facility] 06-20-2022 14:27-0400 Respiratory rate 16 /min Jese Mejia MD Work Phone: [facility] 06-20-2022 14:27-0400 SaO2% (BldA) [Mass fraction] 98 % Jese Mejia MD Work Phone: [facility] 06-20-2022 14:27-0400 Systolic blood pressure 119 mm[Hg] Jese Mejia MD Work Phone: [facility] 06-11-2022 07:41-0400 Body height 160 cm Catherine Perez CARE PROGRAM RESIDENT.DATABASE SECURITY EXPERT Work Phone: [facility] 06-11-2022 07:41-0400 Body weight 92.99 kg Catherine Perez CARE PROGRAM RESIDENT.DATABASE SECURITY EXPERT Work Phone: [facility] 06-06-2022 14:01-0400 Diastolic blood pressure 79 mm[Hg] Jese Mejia MD Work Phone: [facility] 06-06-2022 14:01-0400 Heart rate 81 /min Jese Mejia MD Work Phone: [facility] 06-06-2022 14:01-0400 Respiratory rate 18 /min Jese Mejia MD Work Phone: [facility] 06-06-2022 14:01-0400 SaO2% (BldA) [Mass fraction] 98 % Jese Mejia MD Work Phone: [facility] 06-06-2022 14:01-0400 Systolic blood pressure 114 mm[Hg] Jese Mejia MD Work Phone: [facility] 05-27-2022 11:21-0400 Body height 160 cm Ashley Rivera MD Work Phone: [facility] 05-27-2022 11:21-0400 Body weight 93 kg Ashley Rivera MD Work Phone: [facility] 05-27-2022 11:21-0400 Diastolic blood pressure 78 mm[Hg] Ashley Rivera MD Work Phone: [facility] 05-27-2022 11:21-0400 Heart rate 70 /min Ashley Rivera MD Work Phone: [facility] 05-27-2022 11:21-0400 SaO2% (BldA) [Mass fraction] 98 % Ashley Rivera MD Work Phone: [facility] 05-27-2022 11:21-0400 Systolic blood pressure 124 mm[Hg] Ashley Rivera MD Work Phone: [facility] 05-08-2022 13:17-0400 Body height 160 cm Catherine Hodakievic CARE PROGRAM RESIDENT.DATABASE SECURITY EXPERT Work Phone: [facility] 05-08-2022 13:17-0400 Body weight 93.44 kg Catherine Hodakievic CARE PROGRAM RESIDENT.DATABASE SECURITY EXPERT Work Phone: [facility] 04-10-2022 07:09-0400 Body height 160 cm Catherine Hodakievic CARE PROGRAM RESIDENT.DATABASE SECURITY EXPERT Work Phone: [facility] 04-10-2022 07:09-0400 Body weight 93.44 kg Catherine Perez DATABASE SECURITY EXPERT Work Phone: [facility] 03-19-2022 13:30-0400 Body height 160 cm Patricio Archer Jr., MD Work Phone: [facility] 03-19-2022 13:30-0400 Body weight 93.44 kg Patricio Archer Jr., MD Work Phone: [facility] 03-19-2022 13:30-0400 Diastolic blood pressure 75 mm[Hg] Patricio Archer Jr., MD Work Phone: [facility] 03-19-2022 13:30-0400 Heart rate 76 /min Patricio Archer Jr., MD Work Phone: [facility] 03-19-2022 13:30-0400 Respiratory rate 20 /min Patricio Archer Jr., MD Work Phone: [facility] 03-19-2022 13:30-0400 Systolic blood pressure 140 mm[Hg] Patricio Archer Jr., MD Work Phone: [facility] 03-15-2022 10:00-0400 Diastolic blood pressure 66 mm[Hg] Maximus López PT Work Phone: [facility] [facility] 03-[facility]-2022 10:00-0400 Systolic blood pressure 128 mm[Hg] Maximus López PT Work Phone: [facility] 03-02-2022 11:37-0400 Body temperature 98.6 [degF] Kyle Sylvester MD Work Phone: [facility] 03-02-2022 11:37-0400 Body weight 93.89 kg Kyle Sylvester MD Work Phone: [facility] 03-02-2022 11:37-0400 Diastolic blood pressure 86 mm[Hg] Kyle Sylvester MD Work Phone: [facility] 03-02-2022 11:37-0400 Heart rate 80 /min Kyle Sylvester MD Work Phone: [facility] 03-02-2022 11:37-0400 Systolic blood pressure 122 mm[Hg] Kyle Sylvester MD Work Phone: [facility] 02-13-2022 18:14-0400 Body weight 94.35 kg Kyle Sylvester MD Work Phone: [facility] 02-13-2022 18:14-0400 Diastolic blood pressure 76 mm[Hg] Kyle Sylvester MD Work Phone: [facility] 02-13-2022 18:14-0400 Heart rate 68 /min Kyle Sylvester MD Work Phone: [facility] 02-13-2022 18:14-0400 Respiratory rate 14 /min Kyle Sylvester MD Work Phone: [facility] 02-13-2022 18:14-0400 Systolic blood pressure 124 mm[Hg] Kyle Sylvester MD Work Phone: [facility] 02-12-2022 11:41-0400 Body height 160 cm Jese Mejia MD Work Phone: [facility] 02-12-2022 11:41-0400 Body weight 92.53 kg Jese Mejia MD Work Phone: [facility] 02-06-2022 14:32-0400 Body weight 92.53 kg Valencia Mccollum CARE PROGRAM RESIDENT.DATABASE SECURITY EXPERT Work Phone: [facility] 02-06-2022 14:32-0400 Diastolic blood pressure 74 mm[Hg] Valencia Jimenezhof CARE PROGRAM RESIDENT.DATABASE SECURITY EXPERT Work Phone: [facility] 02-06-2022 14:32-0400 Heart rate 68 /min Valenciaestela Jimenezhof CARE PROGRAM RESIDENT.DATABASE SECURITY EXPERT Work Phone: [facility] 02-06-2022 14:32-0400 Respiratory rate 16 /min Valencia Jimenezhof CARE PROGRAM RESIDENT.DATABASE SECURITY EXPERT Work Phone: [facility] 02-06-2022 14:32-0400 SaO2% (BldA) [Mass fraction] 96 % Valenciaestela Jimenezhof CARE PROGRAM RESIDENT.DATABASE SECURITY EXPERT Work Phone: [facility] 02-06-2022 14:32-0400 Systolic blood pressure 110 mm[Hg] Valencia Mccollum CARE PROGRAM RESIDENT.DATABASE SECURITY EXPERT Work Phone: [facility] Encounters Encounter Date Encounter Type Care Provider Facility Start: 01-09-2024 End: 01-09-2024 ambulatory Nataly Moctezuma CARE PROGRAM RESIDENT.DATABASE SECURITY EXPERT Work Phone: Neurology Procedures Date Procedure Procedure Detail Performing Clinician Start: 10-19-2023 Urnls dip stick/tabl et rgnt auto w/o microscopy Noy James CARE PROGRAM RESIDENT.DATABASE SECURITY EXPERT Work Phone: Start: 09-19-2023 Lipid 1996 panel - S ganesh or Plasma Screen Wstr Start: 09-14-2023 Urnls dip stick/tabl et rgnt auto w/o microscopy Trang Bernardo CARE PROGRAM RESIDENT.DATABASE SECURITY EXPERT Work Phone: Start: 08-28-2023 Screening digital br east tomosynthesis bi Krys Sykes CARE PROGRAM RESIDENT.DATABASE SECURITY EXPERT Work Phone: Start: 08-11-2023 Gastric emptying chucky ging study Abel Domínguez MD Work Phone: Start: 07-14-2023 CT LUNG SCREEN WO KRISTENTHEODORE Coral Marino CARE PROGRAM RESIDENT.DATABASE SECURITY EXPERT Work Phone: Start: 03-03-2023 Radiologic exam knee complete 4/more views Nathan Grewal MD Work Phone: Start: 01-29-2023 Dxa bone density dereck dy 1/> sites axial skel Laura Dorantes MD Work Phone: Start: 12-27-2022 Ct abdomen & pelvis w/contrast material Lizz Riggs PA-C Work Phone: Start: 12-10-2022 Colonoscopy Pedro gaming MD Work Phone: Start: 11-12-2022 End: 11-12-2022 Liver elastography w/o imag w/i&r Lizz Riggs PA-C Work Phone: Start: 10-31-2022 Us abdominal real ti me w/image limited Lizz Riggs PA-C Work Phone: Start: 10-29-2022 Radex foot complete minimum 3 views Shashi Hallman Work Phone: Start: 09-07-2022 Lipid 1996 panel - S ganesh or Plasma Lia Cathi GAINES Work Phone: Start: 08-14-2022 End: 08-14-2022 Screening mammography bi 2-view breast inc cad Bulk Order Provider Start: 08-05-2022 Nerve conduction dereck dies 5-6 studies Divya Healy MD, PhD Work Phone: Start: 07-23-2022 Urnls dip stick/tabl et rgnt auto w/o microscopy Patricio Archer MD Work Phone: Start: 07-04-2022 Gluc bld gluc mntr d ev cleared fda spec home use Jese Mejia MD Work Phone: Start: 06-11-2022 Mri spinal canal cer vical w/o contrast matrl Ashley Hugo MD Work Phone: Start: 06-06-2022 Gluc bld gluc mntr d ev cleared fda spec home use Jese Mejia MD Work Phone: Start: 05-27-2022 Radex entir thrc lmb r crv sac spi w/skull 4/5 vw Ashley Hugo MD Work Phone: Start: 04-17-2022 Ct thorax w/o contra st material Kyle Sylvester MD Work Phone: Start: 03-19-2022 Urnls dip stick/tabl et rgnt auto w/o microscopy Patricio Archer MD Work Phone: Start: 03-04-2022 Ct abdomen & pelvis w/o contrast material Kyle Sylvester MD Work Phone: Start: 02-13-2022 Urnls dip stick/tabl et rgnt auto w/o microscopy Kyle Sylvester MD Work Phone: Start: 02-06-2022 Ct abdomen & pelvis w/o contrast material Valencia Jimenezjamesjaime CARE PROGRAM RESIDENT.DATABASE SECURITY EXPERT Work Phone: Start: 02-06-2022 Urnls dip stick/tabl et rgnt auto w/o microscopy Valencia Jimenezjamesjaime CARE PROGRAM RESIDENT.DATABASE SECURITY EXPERT Work Phone: Start: 06-26-2021 Mammography Valencia Morgan [facility] CARE PROGRAM RESIDENT.DATABASE SECURITY EXPERT Work Phone: Start: 08-13-2019 Colonoscopy Valencia Morgan wiof CARE PROGRAM RESIDENT.DATABASE SECURITY EXPERT Work Phone: Plan of Treatment Date Care Activity Detail Author Start: 10-06-2033 Urine microalbumin profile DTaP,Tdap,Td Vaccine (3 - Td or Tdap) [facility] Start: 08-13-2029 Colonoscopy COLONOSCOPY [facility] Start: 08-13-2029 COLORECTAL CANCER SCREENING COLORECTAL CANCER SCREENING [facility] Start: 09-19-2028 Lipid 1996 panel - Serum or Plasma Lipid Screening [facility] Start: 09-19-2028 Lipid panel Lipid Screening [facility] Start: 12-10-2027 Colonoscopy COLONOSCOPY [facility] Start: 12-10-2027 COLORECTAL CANCER SCREENING COLORECTAL CANCER SCREENING [facility] Start: 12-10-2027 Screening for malignant neoplasm of colon [facility] Start: 10-03-2027 HPV TESTING HPV TESTING [facility] Start: 10-03-2027 PAP TESTING PAP TESTING [facility] Start: 09-07-2027 Lipid 1996 panel - Serum or Plasma Lipid Screening [facility] Start: 09-07-2027 LIPID SCREEN LIPID SCREEN [facility] Start: 03-27-2027 LIPID SCREEN LIPID SCREEN [facility] Start: 09-19-2026 Diabetes Screening Diabetes Screening [facility] Start: 08-16-2026 LIPID SCREEN LIPID SCREEN [facility] Start: 08-01-2026 Diabetes Screening Diabetes Screening [facility] Start: 06-11-2026 DIABETES SCREEN DIABETES SCREEN [facility] Start: 05-10-2026 DIABETES SCREEN DIABETES SCREEN [facility] Start: 03-31-2026 DIABETES SCREEN DIABETES SCREEN [facility] Start: 12-27-2025 DIABETES SCREEN DIABETES SCREEN [facility] Start: 09-07-2025 DIABETES SCREEN DIABETES SCREEN [facility] Start: 03-27-2025 DIABETES SCREEN DIABETES SCREEN [facility] Start: 10-27-2024 Annual PCP Team Chronic Disease Visit Annual PCP Team Chronic Disease Visit [facility] Start: 10-08-2024 DIABETES SCREEN DIABETES SCREEN [facility] Start: 09-29-2024 Annual PCP Team Chronic Disease Visit Annual PCP Team Chronic Disease Visit [facility] Start: 08-28-2024 Mammography Mammogram Screening [facility] Start: 08-28-2024 Screening for malignant neoplasm of breast Mammogram Screening [facility] Start: 07-30-2024 Annual PCP Team Chronic Disease Visit Annual PCP Team Chronic Disease Visit [facility] Start: 07-14-2024 Influenza vaccination LUNG CANCER SCREENING [facility] Start: 07-14-2024 Screening for malignant neoplasm of lung Lung Cancer Screening [facility] Start: 06-17-2024 ANNUAL PCP TEAM CHRONIC DISEASE VISIT ANNUAL PCP TEAM CHRONIC DISEASE VISIT [facility] Start: 06-11-2024 ANNUAL PCP TEAM CHRONIC DISEASE VISIT ANNUAL PCP TEAM CHRONIC DISEASE VISIT [facility] Start: 04-29-2024 ANNUAL PCP TEAM CHRONIC DISEASE VISIT ANNUAL PCP TEAM CHRONIC DISEASE VISIT [facility] Start: 04-02-2024 ANNUAL PCP TEAM CHRONIC DISEASE VISIT ANNUAL PCP TEAM CHRONIC DISEASE VISIT [facility] Start: 12-06-2023 ANNUAL PCP TEAM CHRONIC DISEASE VISIT ANNUAL PCP TEAM CHRONIC DISEASE VISIT [facility] Start: 12-05-2023 ANNUAL PCP TEAM CHRONIC DISEASE VISIT ANNUAL PCP TEAM CHRONIC DISEASE VISIT [facility] Start: 11-28-2023 End: 02-27-2024 Thyrotropin [Units/volume] in Serum or Plasma TSH BLD Lab Routine Acquired hypothyroidism Expected: 11/28/2023, Expires: 02/27/2024 [facility] Work Phone: Immunizations Immunization Date Immunization Notes Care Provider Fa purvi 07-30-2023 influenza (HD-IIV4) vaccine, age 65+ yr, high dose, quadrivalent, PF (FLUZONE HIGH-DOSE) Lia Winkler PA-C Work Phone: [facility] 03-31-2023 pneumococcal (PCV20) vaccine, 20 valent (PREVNAR 20) Kyle Sylvester MD Work Phone: [facility] 11-15-2022 influenza, injectabl e, quadrivalent, contains preservative Shashi Hallman Work Phone: [facility] 12-05-2021 zoster vaccine recombinant Kyle Sylvester MD Work Phone: [facility] 09-28-2021 zoster vaccine recombinant Valencia Tannhof CARE PROGRAM RESIDENT.DATABASE SECURITY EXPERT Work Phone: [facility] 09-26-2021 influenza, injectabl e, quadrivalent, contains preservative Valencia Tannhof CARE PROGRAM RESIDENT.DATABASE SECURITY EXPERT Work Phone: [facility] 08-28-2020 influenza, injectabl e, quadrivalent, contains preservative Valencia Tannhof CARE PROGRAM RESIDENT.DATABASE SECURITY EXPERT Work Phone: [facility] 09-24-2019 influenza, injectabl e, quadrivalent, contains preservative Valencia Tannhof CARE PROGRAM RESIDENT.DATABASE SECURITY EXPERT Work Phone: [facility] 09-02-2018 influenza, injectabl e, quadrivalent, contains preservative Valencia Tannhof CARE PROGRAM RESIDENT.DATABASE SECURITY EXPERT Work Phone: [facility] 05-11-2018 zoster vaccine recombinant Valencia Tannhof CARE PROGRAM RESIDENT.DATABASE SECURITY EXPERT Work Phone: [facility] Work Phone: 03-03-2018 pneumococcal polysaccharide vaccine, 23 valent Valencia Tannhof CARE PROGRAM RESIDENT.DATABASE SECURITY EXPERT Work Phone: [facility] 09-21-2017 influenza, injectabl e, quadrivalent, contains preservative Valencia Tannhof CARE PROGRAM RESIDENT.DATABASE SECURITY EXPERT Work Phone: [facility] 08-17-2017 influenza, seasonal, injectable, preservative free Valencia Tannhof CARE PROGRAM RESIDENT.DATABASE SECURITY EXPERT Work Phone: [facility] 09-07-2016 influenza, injectabl e, quadrivalent, contains preservative Valencia Tannhof CARE PROGRAM RESIDENT.DATABASE SECURITY EXPERT Work Phone: [facility] 08-24-2015 influenza, injectabl e, quadrivalent, contains preservative Valencia Tannhof CARE PROGRAM RESIDENT.DATABASE SECURITY EXPERT Work Phone: [facility] Work Phone: 08-24-2015 influenza, seasonal, injectable Valencia Tannhof CARE PROGRAM RESIDENT.DATABASE SECURITY EXPERT Work Phone: [facility] 09-16-2014 influenza, seasonal, injectable Valencia Tannhof CARE PROGRAM RESIDENT.DATABASE SECURITY EXPERT Work Phone: [facility] 08-18-2013 influenza virus vacc ine, unspecified formulation Valencia Tannhof CARE PROGRAM RESIDENT.[facility] Work Phone: [facility] Work Phone: 08-18-2013 tetanus toxoid, redu carmelo diphtheria toxoid, and acellular pertussis vaccine, adsorbed Valencia Tannhof CARE PROGRAM RESIDENT.[facility] Work Phone: [facility] Work Phone: 09-05-2012 influenza virus vacc ine, unspecified formulation Valencia Tannhof CARE PROGRAM RESIDENT.[facility] Work Phone: [facility] Work Phone: 09-07-2011 influenza virus vacc ine, unspecified formulation Valencia Tannhof CARE PROGRAM RESIDENT.DATABASE SECURITY EXPERT Work Phone: [facility] Work Phone: 09-13-2010 influenza virus vacc ine, unspecified formulation Valencia Tannhof CARE PROGRAM RESIDENT.[facility] Work Phone: [facility] 11-14-2009 novel influenza-H1N1 -09, preservative-free, injectable Valencia Tannhof CARE PROGRAM RESIDENT.DATABASE SECURITY EXPERT Work Phone: [facility] 08-17-2009 influenza virus vacc ine, unspecified formulation Valencia Tannhof CARE PROGRAM RESIDENT.DATABASE SECURITY EXPERT Work Phone: [facility] 09-23-2008 influenza virus vacc ine, unspecified formulation Valencia Tannhof CARE PROGRAM RESIDENT.DATABASE SECURITY EXPERT Work Phone: [facility] Work Phone: 10-02-2007 influenza virus vacc ine, unspecified formulation Valencia Tannhof CARE PROGRAM RESIDENT.DATABASE SECURITY EXPERT Work Phone: [facility] Work Phone: 08-18-2003 pneumococcal polysaccharide vaccine, 23 valent Kyle Sylvester MD Work Phone: [facility] Work Phone: Payers Date Payer Category Payer Medicaid MEDICAID [facility] MEDICAID [id number] 2020-Present [phone] [address] [place] [address] Medicaid [id number] 2020 Medicaid MEDICAID [facility] MEDICAID [id number] 2020-Present [phone] [address] [place] [address] Medicaid [id number] 2020 Medicaid [id number] 2017 Medicare [facility] MEDICARE [facility] DUAL COMPLETE HMO SNP [id number] 2017-Present [phone] [address] [place] [address] Medicare [id number] 2017 Medicare [id number] 2017 Unknown [id number] Unknown [id number] Social History Date Type Detail Facility Assertion [facility] Work Phone: Start: 02-04-2018 End: 07-08-2023 Tobacco smoking status NHIS Ex-smoker [facility] End: 01-07-2018 History of tobacco use Current smoker [facility] End: 01-07-2018 History of tobacco use Cigarette Smoker [facility] Start: 02-04-2018 End: 09-04-2023 Tobacco use and exposure Smokeless tobacco non-user [facility] Start: 02-06-2022 End: 01-09-2024 Alcohol intake Current non-drinker of alcohol (finding) [facility] Start: 09-07-2020 End: 11-13-2022 History SDOH Alcohol Frequency 2 [facility] Start: 09-05-2020 End: 09-26-2022 History SDOH Alcohol Std Drinks 1 [facility] Start: 09-07-2020 End: 11-13-2022 History SDOH Social Connections Phone 4 [facility] Start: 08-21-2020 End: 11-13-2022 History SDOH Social Connections Get Together 3 [facility] Start: 08-21-2020 Education 14 [facility] Start: 11-11-2018 End: 06-23-2022 Tobacco Comment used welbutrin [facility] Start: 1960 Sex Assigned At Female [facility] Work Phone: Start: 01-27-2022 End: 10-16-2022 Exposure to SARS-CoV-2 (event) Not sure [facility] Start: 09-26-2022 End: 11-13-2022 History SDOH Alcohol Std Drinks 0 [facility] Start: 09-26-2022 End: 11-13-2022 History SDOH Social Connections Phone 5 [facility] Start: 09-26-2022 History SDOH Physical Activity DPW 7 [facility] Start: 09-26-2022 History SDOH Physical Activity MPS 12 [facility] Start: 01-27-2023 End: 03-27-2023 Cigarettes smoked current (pack per day) - Reported 0.5 [facility] Start: 11-13-2022 End: 03-27-2023 Social connection and isolation panel [facility] Do you belong to any clubs or organizations such as spiritism groups, unions, fraternal or athletic groups, or school groups? No [facility] Are you now , , , , never or living with a partner? [facility] How often to you hav e a drink containing alcohol? Never [facility] How many standard dr inks containing alcohol do you have on a typical day? Patient does not drink [facility] Do you feel stress - tense, restless, nervous, or anxious, or unable to sleep at night because your mind is troubled all the time - these days [OSQ] Only a little [facility] (I/We) worried whedorothy er (my/our) food would run out before (I/we) got money to buy more. Never true [facility] Start: 08-28-2020 Gender identity Identifies as female gender (finding) [facility] Work Phone: Start: 09-04-2023 Tobacco smoking status NHIS Occasional tobacco smoker [facility] Do you belong to any clubs or organizations such as spiritism groups, unions, fraternal or athletic groups, or school groups? Yes [facility] Do you feel stress - tense, restless, nervous, or anxious, or unable to sleep at night because your mind is troubled all the time - these days [OSQ] Not at all [facility] Medical Equipment Procedure Code Equipment Code Equipment Origin al Text Equipment Identifier Dates Cement Simplex B one High Viscosity - [id number] Start: 10-18-2020 Cement Simplex B one High Viscosity - [id number] Start: 10-18-2020 Stem Triathlon 1 2mm Cocr 50mm Femoral Cemented Total Stabilized Knee - [id number] Start: 10-18-2020 Imp Knee Tib Ins Tri Sz3 13mm [id number] Start: 10-18-2020 Component Triath patrick 29mm X3 9mm Patellar Asymmetric Knee - [id number] Start: 10-18-2020 Component Triath patrick 4 Femoral Cemented Posterior Stabilize Knee Left - [id number] Start: 10-18-2020 Baseplate Triath patrick 3 Penelope Cocr Tibial Total Stabilize Cemented Knee - [id number] Start: 10-18-2020 Sling Pubvagnl [facility] - [id number] Start: 10-05-2015 Start: 05-24-2021 End: 07-30-2023 Functional Status Date Assessment Result Facility NEGATED: Highlighted row Functional performance Functional status health issues are not documented [facility] Work Phone: Mental Status Date Assessment Result Facility NEGATED: Highlighted row Cognitive function [Interpretation] Cognitive status health issues are not documented [facility] Work Phone: Clinical Notes 03-29-2015 to 01-09-2024 Patient Nataly Alston APRN.DATABASE SECURITY EXPERT - 01/09/2024 2:30 PM ESTTelephone Encounter - Nataly Moctezuma APRN.CNP - 12/19/2023 3:23 PM Katherine, Lia Alonzo PA-C - 11/01/2023 10:55 AM EST Note Date & Type Note Facility 01-09-2024 Instructions Nataly Moctezuma APRN.CNP - 01/09/2024 4:22 PM EST Patient Instructions: JORDAN: Continue Auto CPAP at current settings of 5-15 cmH2O. We will check another PAP download in a month. Current download is 14/14 days (100%). I'm grateful she is using it nightly again; I'm hoping her compliance increases also. Mask is leaking and bothering her. Will try to get her a mask refitting. Remember to clean your mask and equipment regularly, as directed. Avoid use of ozone presser and blocker knitted goods, SoClean devices, or UV cleaning devices Avoid using alcohol or alcohol-containing products on your mask, as this may compromise the integrity of the mask materials and contribute to leak issues You should be eligible for new supplies approximately every 3-6 months, depending on your insurance coverage. Contact your Durable Medical Equipment (DME) company for new supplies as needed. Order will be sent to [employer] for supplies: [employer]. Insurance: We will send script to [employer]. Face to face examination completed January 09, 2024. Chanda Haq has fulfilled her insurance requirement with an annual visit for PAP therapy, average usage is 4 hours, and compliancy of >70 %. High mask leak on PAP download. Needs mask refitting. Please send patient her PAP supplies as covered by her insurance. Follow up in 3 months in person or virtually with Dr. Jarred Selby (should be established with Sleep MD). [facility] [employer] will reach out to you. If you have questions, feel free to send me a [employer] message. Nataly Moctezuma APRN.MARY ELLEN documented in this encounter [facility] 01-09-2024 History of Present illness Narrative Images from the original note were not included. [facility] Virtual Visit Follow Up/ Established Patient Visit PATIENT NAME: Chanda Haq [facility] Rules (O.A.C. ): This visit was conducted as a Virtual Visit, with patient's permission, via Zoom. It required patient-provider interaction for the medical decision making as documented below. Patient stated first & last name: Chanda Haq Patient stated : 1960 Patient stated current location: [place] [address] I have communicated my name, Nataly Moctezuma APRN.CNP, and active licensure Adult Certified Nurse Practitioner in the Sleep Medicine Center at [facility]. The patient's identity and physical location were verified at the time of this visit. Either the patient or their legal major account representative has been informed of the risks and benefits of -- and alternatives to -- treatment through a remote evaluation and consents to proceed with the evaluation remotely. Virtual visits are a convenient way for us to meet, but there are some situations in which an in-person evaluation may be required at a later time. I want to check in to confirm your consent to be seen virtually today. Consent given: Yes Assessment/Plan from LAST VISIT: Date of last visit : 12/09/2023 IMPRESSION/PLAN: Diagnosis: Gasping for breath (primary encounter diagnosis) Witnessed episode of apnea Snoring Insomnia, unspecified type Frequent nocturnal awakening Unrefreshed by sleep Headache causing frequent awakening from sleep Excessive daytime sleepiness Malaise and fatigue History of obstructive sleep apnea Uars (upper airway resistance syndrome) Rls (restless legs syndrome) Bipolar i disorder (hcc) History of stroke Overview: Chanda Haq is a 63 year old year old female with a PMH of Anxiety, Depression, GERD, Hypothyroidism, Obesity, Obstructive sleep apnea, Restless legs syndrome, Insomnia, Lung nodules who presents via in-person visit for JORDAN (CPAP intolerance and mask discomfort), PSG with EMG re-evaluation for Inspire. History of obstructive sleep apnea who presents with snoring, witnessed apneas, waking up with dry mouth or sore throat, multiple awakenings from sleep, nocturnal leg kicking, an urge to move the legs, excessive daytime sleepiness, fatigue, daytime napping, and sleep talking. A polysomnogram on 06/02/2018 showed an overall apnea-hypopnea index (AHI) of 10.1 , Supine AHI of 14.0 , REM AHI of 22.8 and an oxygen saturation anna of 86 %. A PAP titration on 06/28/2018 recommended AutoCPAP 5-15 cmH2O. The patient is using CPAP but due to CPAP intolerance and mask discomfort is here for re-evaluation for Inspire. A Polysomnogram performed on 07/02/23 revealed Upper airway resistance syndrome (UARS) is a subtype of obstructive sleep apnea (JORDAN). Although the overall apnea-hypopnea index (AHI) was in the normal range, the respiratory disturbance index (RDI) was in the mild range, indicating potential clinical significance. Of note, REM AHI was in the severe range. AHI of 2.8, RDI 5.8, REM AHI 38.2 that was associated with a minimum O2 saturation of 89%. REM sleep without atonia (RSWA) scoring was performed patient report of having a parasomnia type symptom during the study on the morning after questionnaire. The percentage of REM sleep epochs meeting criteria supportive of REM behavioral disorder (RBD) was 0.0%. This does not meet the current ICSD-3 recommended electrodiagnostic criteria for RBD (>27% of REM sleep epochs supports the diagnosis of RBD). Of note, only a brief portion of REM sleep was captured during recording. Discussed treatment options for upper airway resistance syndrome (UARS) which can include weight loss and exercise, treatment of allergies, positional therapy, dental appliance or surgical correction of any airway abnormalities may also improve signs and symptoms. In this instance, a repeat PSG encouraging supine sleep is indicated given night to night variability in sleep apnea and the possibility of a false negative study. Patient with complaints of snoring, waking up gasping and choking, witnessed apneas from . Every two hours, I wake up gasping for air. This is going to kill me. I need my PAP device back. Plan: (1) I have ordered a repeat POLYSOMNOGRAPHY (PSG) encouraging supine sleep. This repeat sleep study is indicated given night to night variability in sleep apnea and the possibility of a false negative study. Patient with complaints of snoring, waking up gasping and choking, witnessed apneas from . Every two hours, I wake up gasping for air. This is going to kill me. I need my PAP device back. Special instructions: Please encourage supine sleep and record sleep in the patient's habitual sleep position. Target REM/supine sleep Please add EtCO2 or Transcutaneous CO2 monitoring to evaluate for JORDAN, sleep related hypoventilation, hypoxemia. Sleep Aid: You may take a light over the counter medication like Melatonin or Benadryl unless you take a prescription sleep aid regularly. What is a Polysomnography (PSG)? A PSG also called a sleep study, is a comprehensive test used to diagnose sleep disorders. Polysomnography records your brain waves, the oxygen level in your blood, heart rate and breathing, as well as eye and leg movements during the study. - Call [phone] to schedule your sleep study if it is not scheduled after your visit today with one of our schedulers. - The morning after your sleep study is completed, please contact our office to schedule a follow up visit (in clinic or virtual) in 2-3 weeks with Sleep [facility] or with [facility] who will be explain the results in detail and treatments options. Results are usually available within 10-14 business days. - Avoid driving when drowsy. Recommend that if you are dozing off while driving, that you do not drive until your sleepiness is appropriately treated. -Encouraged healthy lifestyle with adequate sleep ( 7-9 hours per night), diet and exercise. If you have questions, feel free to send me a [facility] message. I spent a total of 35 minutes. This was a new patient to me on the date of the service which included preparing to see the patient, [id number] patient care, completing clinical documentation, counseling and educating the patient/family/caregiver and ordering medications, tests, or procedures. Nataly Moctezuma APRN.DATABASE SECURITY EXPERT <End Assessment/Plan from last visit> CURRENT VISIT: 01/09/2024 Interval history: Dealing with a lot of stress and medical issues. Follow up visit for Review PSG results. Relevant study results reviewed as noted below, if applicable. SLEEP APNEA Sleep apnea type : JORDAN, Most Recent Apnea-Hypopnea Index (AHI): AHI 5.4, REM AHI 22.1 Treatment : PAP therapy DME: [employer] PAP History: Uses AutoPAP for 3-4 hours per night, 7 nights per week. Current PAP settin-15 cm H2O. Pressure is much more comfortable since we dropped it down to 5-15 cmH20. Difficulties with AutoPAP: None Reviewed objective PAP compliance data: 12/23/23-01/05/24 Mask type: Full face mask Mask issues: Air leak, improper mask fit, mask lines, and skin irritation Uses chin strap: No Uses ramp function: Yes, Protocol: Auto Uses humidity: Yes, Protocol: Distilled water. There is a perceived benefit by the patient: Yes Observers report abolition of snoring with AutoPAP use. SLEEP HYGIENE QUESTIONS: Number of times patient wakes up per night : Multiple awakenings Reason (s) why patient wakes up during the night : Medical issues/pain. Estimated total sleep time ( in a 24 hour period of time) : Approximately 3-4 maximum Medical issues keeping her from sleeping. I have to sleep on my back. She sleeps on two pillows and a little pillow, otherwise, her neck gets more uncomfortable. OTHER RELEVANT LABS AND STUDIES: Ferritin Date Value Ref Range Status 06/11/2023 47.1 14.7 - 205.1 ng/mL Final 07/03/2020 73.9 14.7 - 205.1 ng/mL Final 05/29/2019 55.5 14.7 - 205.1 ng/mL Final Transferrin Saturation Date Value Ref Range Status 06/11/2023 15.4 15.0 - 57.0 % Final 03/16/2021 22 15 - 57 % Final 11/09/2020 20 15 - 57 % Final 07/03/2020 22 15 - 57 % Final 05/29/2019 18 15 - 57 % Final Hemoglobin Date Value Ref Range Status 09/19/2023 12.3 11.5 - 15.5 g/dL Final 06/11/2023 12.0 11.5 - 15.5 g/dL Final Iron Date Value Ref Range Status 06/11/2023 53 41 - 186 ug/dL Final 03/16/2021 73 41 - 186 ug/dL Final 11/09/2020 61 41 - 186 ug/dL Final 07/03/2020 71 41 - 186 ug/dL Final TIBC Date Value Ref Range Status 06/11/2023 344 232 - 386 ug/dL Final 03/16/2021 327 232 - 386 ug/dL Final 11/09/2020 309 232 - 386 ug/dL Final 07/03/2020 316 232 - 386 ug/dL Final PATIENT-ENTERED QUESTIONNAIRE SLEEP SCORES Sleep Questions 01/07/2024 Reason for visit: Sleep apnea, Difficulty falling or staying asleep or poor sleep quality, Abnormal sleep/wake timing Average hours slept in 24 hours: - Average hours of CPAP per night: 5 Percent of nights CPAP used at least 4 hours: 7 Accidents or near accidents due to drowsy drivin [place] Sleepiness Scale 12/21/2021 12/06/2023 01/07/2024 Score 12 (present daytime sleepiness) 19 (severe daytime sleepiness) Incomplete PROMIS CAT Sleep Disturbance 12/21/2021 12/06/2023 01/07/2024 PROMIS Sleep Disturbance T-Score 61 (moderate) 64 (moderate) 52 (within normal limits) PROMIS Sleep Disturbance Percentile 14% 8% 42% Insomnia Severity Index 07/03/2022 07/09/2022 12/06/2023 Score 12 12 24 Restless Leg Syndrome 07/24/2021 Score 10 PHQ-9 10/27/2023 12/06/2023 01/07/2024 Score 3 12 7 PROMIS Global Health - (T-Scores - the mean of general population = 50. Five points is a clinically meaningful difference.) 07/23/2023 10/21/2023 10/28/2023 Physical T-Score 29.6 37.4 37.4 Mental T-Score 36.3 36.3 36.3 CURRENT MEDICATIONS: CPAP/BIPAP/OTHER Type .CPAPSettings into a note to see current settings/supplies/DME information. CPAP/BIPAP/OTHER Type .CPAPSettings into a note to see current settings/supplies/DME information. gabapentin (NEURONTIN) 400 mg capsule Take 1 capsule by mouth daily at bedtime for 90 days. tiZANidine (ZANAFLEX) 4 mg tablet TAKE 1 PILL UP TO 3 TIMES PER DAY NEEDED FOR PAINFUL MUSCLE SPASMS levothyroxine (SYNTHROID) 137 mcg tablet Take 1 tablet by mouth once daily. Fri-Sat and 2 a tab on Sundays albuterol HFA (PROVENTIL HFA, VENTOLIN HFA) 90 mcg/actuation inhaler Inhale 2 Puffs as instructed every 4 hours as needed for wheezing/shortness of breath. rimegepant (NURTEC ODT) 75 mg disintegrating tablet Take 1 tablet by mouth once daily as needed. plecanatide (TRULANCE) 3 mg tablet Take 1 tablet (3 mg) by mouth once daily. ergocalciferol 50,000 unit capsule (VITAMIN D2, DRISDOL) Take 1 capsule by mouth one time a week. cyanocobalamin (VITAMIN B-12) 1,000 mcg tab Take 1 tablet by mouth once daily. rosuvastatin (CRESTOR) 40 mg tablet Take 1 tablet by mouth daily at bedtime. amitriptyline (ELAVIL) 25 mg tablet Take 1 tablet by mouth daily at bedtime. Fenofibrate (LOFIBRA) 54 mg tablet Take 1 tablet by mouth once daily. metFORMIN ER (GLUCOPHAGE XR) 500 mg 24 hr tablet Take 1 tablet by mouth daily with breakfast. ezetimibe (ZETIA) 10 mg tablet Take 1 tablet by mouth once daily. rOPINIRole (REQUIP) 1 mg tablet Take one tab by mouth before bed. topiramate (TOPAMAX) 100 mg tablet Take 1 tablet by mouth two times a day. ARIPiprazole (ABILIFY) 15 mg tablet Take 1 tablet by mouth once daily. pantoprazole DR (PROTONIX) 40 mg tablet Take 1 tablet by mouth two times a day. Take on empty stomach, 1/2 hr before meal. DULoxetine (CYMBALTA) 30 mg capsule Take 1 capsule by mouth once daily. [facility] fluticasone (FLONASE) 50 mcg/actuation nasal spray Use 1 Center Sandwich in each nostril daily at bedtime. AMOXICILLIN, BULK, MISC FISH OIL-DHA-EPA ORAL Take by mouth. Daily blood sugar diagnostic (BLOOD GLUCOSE TEST) test strip Test blood sugar(s) 1 times daily. Dx: Other DM Code R73.09 Insulin: No Lancets lancets Test blood sugar(s) 1 times daily. Dx: Other DM Code R73.09 Insulin: No Food Supplement, Lactose-Free (PROMOTE, OSMOLITE, TWO FABIENNE, ENSURE PLUS, ENLIVE) liqd Take 237 mL by mouth three times daily with meals. aspirin, enteric coated (ASPIRIN, ENTERIC COATED) 81 mg EC tablet Take 81 mg by mouth every other day. CPAP Mask fitting and 30 day download for autopap 10 -20 cm H2O & formal mask refitting for medical necessity & schedule with the RT, chin strap, head gear, humidity, heated tubing (SACHI), lifetime supplies. G47.33 JORDAN (Patient not taking: Reported on 12/09/2023) lactase (LACTAID) 3,000 unit tablet Take 1 tablet by mouth three times daily with meals. acetaminophen (TYLENOL ARTHRITIS ORAL) Take 650 mg by mouth every 8 hours as needed. COMPOUNDED PRESCRIPTION Wheeled rolator walker with ahnd breaks and seat, # 1, Dx:M19.071, Z91.071 Prior Hypersomnia/Narcolepsy Medications (20 years) Some values may be hidden. Unless noted otherwise, only the newest values recorded on each date are displayed. Hypersomnia/Narcolepsy Medications No data to display. Prior RLS Medications (last 20 years) Some values may be hidden. Unless noted otherwise, only the newest values recorded on each date are displayed. RLS Medications HYDROcodone 5 mg - acetaminophen 325 mg tablet (NORCO) Dose: 1-2 tablet X (PACU ONLY) PRN 1 tablet for moderate pain (Pain Score 4-6) and 2 tablets for severe pain (Pain score 7-10) Starting date: 05/03/2016 Ending date: 05/03/2016 (Discontinued) HYDROcodone 5 mg - acetaminophen 325 mg tablet (NORCO) Dose: 1-2 tablet NEEDED 1 tablet for moderate pain (Pain Score 4-6) and 2 tablets for severe pain (Pain score 7-10) Starting date: 12/01/2019 Ending date: 12/01/2019 (Discontinued) HYDROcodone 5 mg - acetaminophen 325 mg tablet (NORCO) Dose: 1 tablet EVERY 6 HOURS Starting date: 10/18/2020 Ending date: 10/18/2020 (Discontinued) HYDROcodone 5 mg - acetaminophen 325 mg tablet (NORCO) Dose: 1 tablet EVERY 4 HOURS NEEDED Starting date: 10/18/2020 Ending date: 10/19/2020 (Discontinued) HYDROcodone-acetaminophen 5-325 mg per tablet Dose: 1 tablet EVERY 6 HOURS NEEDED Starting date: 07/27/2014 Ending date: 09/16/2014 (Discontinued) HYDROcodone-acetaminophen (NORCO) 5-325 mg per tablet Dose: 1 tablet EVERY 6 HOURS NEEDED Starting date: Ending date: 07/09/2017 (Discontinued) HYDROcodone-acetaminophen (NORCO) 5-325 mg per tablet Dose: Take 1-2 tabs by mouth as needed for headache. 1 for mild pain or 2 for sever. Starting date: 07/09/2017 Ending date: 11/24/2017 (Discontinued) HYDROcodone-acetaminophen (NORCO) 5-325 mg per tablet Dose: 1 tablet EVERY 6 HOURS NEEDED Starting date: 12/01/2019 Ending date: 12/06/2019 HYDROcodone-acetaminophen (NORCO) 5-325 mg per tablet Dose: 1 tablet EVERY 4 HOURS NEEDED Starting date: 10/19/2020 Ending date: 10/27/2020 (Discontinued) HYDROcodone-acetaminophen (NORCO) 5-325 mg per tablet Dose: 1 tablet EVERY 4 HOURS NEEDED Starting date: 10/27/2020 Ending date: 11/03/2020 (Discontinued) HYDROcodone-acetaminophen (NORCO) 5-325 mg per tablet Dose: 1 tablet EVERY 4 HOURS NEEDED Starting date: 11/03/2020 Ending date: 11/14/2020 (Discontinued) HYDROcodone-acetaminophen (NORCO) 5-325 mg per tablet Dose: 1 tablet EVERY 6 HOURS NEEDED Starting date: 11/14/2020 Ending date: 11/21/2020 HYDROcodone-acetaminophen (NORCO) 5-325 mg per tablet Dose: 1 tablet EVERY 8 HOURS NEEDED Starting date: 11/27/2020 Ending date: 12/07/2020 HYDROcodone-acetaminophen (NORCO) 5-325 mg per tablet Dose: 1 tablet EVERY 8 HOURS NEEDED Starting date: 12/14/2020 Ending date: 12/21/2020 HYDROcodone-acetaminophen (NORCO) 5-325 mg per tablet Dose: TAKE 1 PILL UP TO EVERY 6 HOURS NEEDED FOR SEVERE ACUTE BREAKTHROUGH PAIN. DO NOT EXCEED 4 PILLS IN A 24 HOUR PERIOD. Starting date: 09/25/2021 Ending date: 10/02/2021 HYDROcodone-acetaminophen (NORCO) 5-325 mg per tablet Dose: TAKE 1 PILL UP TO EVERY 6 HOURS NEEDED FOR SEVERE ACUTE BREAKTHROUGH PAIN. DO NOT EXCEED 4 PILLS IN A 24 HOUR PERIOD. Starting date: 01/07/2022 Ending date: 01/14/2022 HYDROcodone-acetaminophen (NORCO) 5-325 mg per tablet Dose: 1 tablet EVERY 6 HOURS NEEDED rx'd from [facility] on 05.15.2022 Starting date: 05/15/2022 Ending date: 06/06/2022 (Discontinued) HYDROmorphone 0.2-0.4 mg injection (DILAUDID) Dose: 0.2-0.4 mg X (PACU ONLY) PRN May repeat every 10 minutes Give 0.2 mg for Mild Pain (1-3) Give 0.4 mg for Moderate Pain(4-6) and Severe Pain (7-10) Maximum of 2 mg. If pain score remains above 4 after two doses, contact PACU [facility]. Caution: Hydromorphone is 5 - 7 times MORE POTENT than morphine. For example: Hydromorphone 1mg IV = Morphine 7mg IV Starting date: 10/05/2015 Ending date: 10/05/2015 (Discontinued) HYDROmorphone injection (DILAUDID) Dose: Starting date: 10/18/2020 Ending date: 10/18/2020 (Discontinued) meperidine (PF) 12.5 mg injection (DEMEROL) Dose: 12.5 mg X (PACU ONLY) ONCE May Repeat 12.5 mg in 10 minutes X1 for Continued Shivering Starting date: 12/01/2019 Ending date: 12/01/2019 (Discontinued) meperidine (PF) 12.5 mg injection (DEMEROL) Dose: 12.5 mg EVERY 10 MINUTES NEEDED for shivering May Repeat 12.5 mg in 10 minutes X1 Starting date: 10/18/2020 Ending date: 10/18/2020 (Discontinued) meperidine (PF) 50 mg injection (DEMEROL) Dose: 50 mg X (PACU ONLY) PRN FIRST LINE THERAPY Every 3 minutes to Total Dose of 150 mg USE FOR MODERATE PAIN ONLY IF PATIENT IS UNABLE TO TOLERATE ORAL THERAPY Starting date: 03/29/2015 Ending date: 03/30/2015 (Discontinued) morphine 2 mg injection Dose: 2 mg EVERY 4 HOURS NEEDED Starting date: 05/08/2023 Ending date: 05/10/2023 (Discontinued) oxyCODONE IR 5-10 mg tab(s) (ROXICODONE) Dose: 5-10 mg EVERY 6 HOURS NEEDED Starting date: 05/08/2023 Ending date: 05/10/2023 (Discontinued) oxyCODONE IR (ROXICODONE) 5 mg immediate release tablet Dose: 5 mg EVERY 6 HOURS NEEDED Starting date: 05/10/2023 Ending date: 05/13/2023 rOPINIRole (REQUIP) 0.5 mg tablet Dose: Take one tab by mouth before bed for 2 weeks then take two before bed. Starting date: 06/04/2019 Ending date: 09/15/2019 (Discontinued) rOPINIRole 1 mg tab(s) (REQUIP) Dose: 1 mg AT BEDTIME Starting date: 10/18/2020 Ending date: 10/19/2020 (Discontinued) rOPINIRole 1 mg tab(s) (REQUIP) Dose: 1 mg AT BEDTIME Starting date: 05/08/2023 Ending date: 05/10/2023 (Discontinued) rOPINIRole (REQUIP) 1 mg tablet Dose: Take one tab by mouth before bed. Starting date: 09/15/2019 Ending date: 03/31/2020 (Discontinued) rOPINIRole (REQUIP) 1 mg tablet Dose: Take one tab by mouth before bed. Starting date: 04/03/2020 Ending date: 11/22/2020 (Discontinued) rOPINIRole (REQUIP) 1 mg tablet Dose: Take one tab by mouth before bed. Starting date: 11/23/2020 Ending date: 07/10/2021 (Discontinued) rOPINIRole (REQUIP) 1 mg tablet Dose: Take one tab by mouth before bed. Starting date: 07/10/2021 Ending date: 01/18/2022 (Discontinued) rOPINIRole (REQUIP) 1 mg tablet Dose: Take one tab by mouth before bed. Starting date: 01/18/2022 Ending date: 09/02/2022 (Discontinued) rOPINIRole (REQUIP) 1 mg tablet Dose: Take one tab by mouth before bed. Starting date: 09/02/2022 Ending date: 05/12/2023 (Discontinued) rOPINIRole (REQUIP) 1 mg tablet Dose: Take one tab by mouth before bed. Starting date: 05/12/2023 Ending date: 10/27/2023 (Discontinued) rOPINIRole (REQUIP) 1 mg tablet Dose: Take one tab by mouth before bed. Starting date: 10/27/2023 (active) traMADol (ULTRAM) 50 mg tablet Dose: 50 mg EVERY 4 HOURS NEEDED Starting date: 05/13/2016 Ending date: 11/27/2016 (Discontinued) Medication marked as long-term Prior Insomnia Medications (last 20 years) Some values may be hidden. Unless noted otherwise, only the newest values recorded on each date are displayed. Insomnia Medications amitriptyline (ELAVIL) 25 mg tablet Dose: 25 mg AT BEDTIME Starting date: 09/01/2019 Ending date: 11/18/2019 (Discontinued) amitriptyline (ELAVIL) 25 mg tablet Dose: 25 mg AT BEDTIME Starting date: 11/18/2019 Ending date: 08/03/2020 (Discontinued) amitriptyline (ELAVIL) 25 mg tablet Dose: 25 mg AT BEDTIME Starting date: 04/23/2021 Ending date: 04/14/2022 (Discontinued) amitriptyline (ELAVIL) 25 mg tablet Dose: 25 mg AT BEDTIME Starting date: 04/16/2022 Ending date: 09/01/2023 (Discontinued) amitriptyline (ELAVIL) 25 mg tablet Dose: 25 mg AT BEDTIME Starting date: 09/02/2023 Ending date: 10/27/2023 (Discontinued) amitriptyline (ELAVIL) 25 mg tablet Dose: 25 mg AT BEDTIME Starting date: 10/27/2023 (active) CLIDINIUM-CHLORDIAZEPOXIDE 2.5 MG-5 MG CAP Dose: Take one(1) tablet three(3) times daily before meals Starting date: 04/18/2006 Ending date: 11/07/2006 (Discontinued) diazePAM (VALIUM) 5 mg tablet Dose: 5 mg EVERY 6 HOURS NEEDED Rx'd by Nani KIM 05.15.2022 Starting date: 05/15/2022 Ending date: 06/06/2022 (Discontinued) melatonin 10 mg tab Dose: Take by mouth. (Patient not taking as of 02/06/2022 2:32 PM) Starting date: Ending date: 02/13/2022 (Discontinued) midazolam (PF) 2 mg injection (VERSED) Dose: 2 mg ONCE Starting date: 12/01/2019 Ending date: 12/01/2019 midazolam (PF) 2 mg injection (VERSED) Dose: 2 mg ONCE For Nerve Block. 2 mg to start with and then 2 mg after 5 minutes if necessary Starting date: 10/18/2020 Ending date: 10/18/2020 midazolam (PF) 2 mg injection (VERSED) Dose: 2 mg ONCE Administration method is bolus dose from bag via bolus feature on smart pump, obtain bolus dose from Automated Dispensing System, or contact pharmacy for bolus dose. Starting date: 10/18/2020 Ending date: 10/18/2020 NORTRIPTYLINE 25 MG CAP Dose: Take four tablets at bedtime Starting date: 08/27/2005 Ending date: 11/28/2005 (Discontinued) NORTRIPTYLINE 50 MG CAP Dose: 4 TABS QHS Starting date: 11/28/2005 Ending date: 11/28/2005 (Discontinued) NORTRIPTYLINE 50 MG CAP Dose: 2 QHS Starting date: 11/28/2005 Ending date: 01/06/2006 (Discontinued) NORTRIPTYLINE 50 MG CAP Dose: Take one(1) tablet daily at bedtime. Starting date: 01/06/2006 Ending date: 01/06/2006 (Discontinued) NORTRIPTYLINE 50 MG CAP Dose: Take one(1) tablet daily at bedtime. Starting date: 01/06/2006 Ending date: 11/23/2010 (Discontinued) nortriptyline 50 mg ORAL capsule Dose: Take one(1) or two(2) tablets daily at bedtime. Starting date: 11/23/2010 Ending date: 03/17/2015 (Discontinued) traZODone (DESYREL) 100 mg tablet Dose: 100 mg AT BEDTIME Starting date: Ending date: 08/22/2015 (Discontinued) traZODone (DESYREL) 100 mg tablet Dose: 50 mg AT BEDTIME Starting date: 08/22/2015 Ending date: 04/19/2016 (Discontinued) Medication marked as long-term Review of Systems Constitutional: Positive for fatigue. Respiratory: Negative. Cardiovascular: Positive for palpitations. Genitourinary: Positive for nocturia. Musculoskeletal: Positive for uncomfortable leg sensations. Psychiatric: Positive for depressed mood. VITAL SIGNS: Deferred due to virtual visit. PHYSICAL EXAMINATION: Constitutional: Appearance: Well groomed. Well nourished FEMALE. Very pleasant. Neurological: General: No focal deficit present. Mental Status: A&OX3 (person, place, and time). Speech: Clear, projects well. Memory: Intact, responses appropriate. Mood and Affect: Mood normal. Behavior: Behavior normal Assessment & Plan IMPRESSION/PLAN: Diagnosis: Jordan (obstructive sleep apnea) (primary encounter diagnosis) Anxiety and depression Insomnia, unspecified type Overview: Chanda Haq is a 63 year old year old female with a PMH of Allergic rhinitis, Anxiety, Asthma, Depression, GERD, Chronic headache, Hyperlipidemia, Hypothyroidism, Insomnia, Obesity, Obstructive sleep apnea, Restless legs syndrome who presents via Virtual Visit for Review PSG results. Discussed Polysomnogram performed on 12/11/23 revealed mild obstructive sleep apnea exacerbated in supine and REM sleep (to the moderate degree). The off supine AHI was normal. JORDAN (AHI of 5.4, Supine AHI 7.9, REM AHI 22.2) that was associated with a minimum O2 saturation of 86%. No unusual behaviors were observed. Normal REM sleep with atonia was recorded. Discussed the diagnosis and physiology of obstructive sleep apnea. Discussed the importance of treating JORDAN, with particular attention given to the comorbidities associated with untreated JORDAN, which include but are not limited to hypertension, heart disease, stroke, obesity and daytime sleepiness that can affect normal daytime functioning. Discussed treatment options for mild sleep apnea include oral appliance,conservative measures (avoidance of alcohol, sedative medications and sleeping in the back positions, management of nasal obstruction, and weight loss), surgery and potentially PAP therapy if daytime symptoms and certain comorbidities are present. Discussed treatment options for upper airway resistance syndrome (UARS) which can include weight loss and exercise, treatment of allergies, positional therapy, dental appliance or surgical correction of any airway abnormalities may also improve signs and symptoms. In this instance, weight loss and exercise, treatment of allergies, positional therapy, and using her PAP device nighty may be the most appropriate approach given. Plan: JORDAN: Continue Auto CPAP at current settings of 5-15 cmH2O. We will check another PAP download in a month. Current download is 14/14 days (100%). I'm grateful she is using it nightly again; I'm hoping her compliance increases also. Mask is leaking and bothering her. Will try to get her a mask refitting. Remember to clean your mask and equipment regularly, as directed. Avoid use of ozone presser and blocker knitted goods, SoClean devices, or UV cleaning devices Avoid using alcohol or alcohol-containing products on your mask, as this may compromise the integrity of the mask materials and contribute to leak issues You should be eligible for new supplies approximately every 3-6 months, depending on your insurance coverage. Contact your Durable Medical Equipment (DME) company for new supplies as needed. Order will be sent to DME for supplies: [employer]. Insurance: Send script to [employer]. Face to face examination completed January 09, 2024. Chanda Haq has fulfilled her insurance requirement with an annual visit for PAP therapy, average usage is 4 hours 2 minutes, and is working on a compliancy of >70 %. High mask leak on PAP download. Needs mask refitting. Please send patient her PAP supplies as covered by her insurance. Follow up in 3 months in person or virtually with Dr. Jarred Selby (should be established with Sleep MD). [facility] will reach out to you. If you have questions, feel free to send me a [employer] message. I spent a total of 30 minutes. This was a follow up patient to me on the date of the service which included preparing to see the patient, [id number] patient care, completing clinical documentation, counseling and educating the patient/family/caregiver and ordering medications, tests, or procedures. Patient had a hard time getting audio on Zoom today. Nataly Moctezuma APRN.CNP Activity Duration Chart accessed 12 minutes Chart accessed 12 minutes Chart accessed < 1 minute Chart accessed 1 minute Chart accessed 10 minutes Chart accessed < 1 minute Current session 3 minutes Total time: 40 minutes documented in this encounter [facility] 12-19-2023 Miscellaneous Notes Maribel, Please send script to [employer]. Dropping pressure 5-15 cmH20 X 2 weeks and will get PAP download to review. Then will consider ordering her a new PAP device. Please have her send us a See[employer] message in 2 weeks too on how the pressure feels. Thx. Nataly Moctezuma APRN.CNP December 19, 2023 3:27 PM documented in this encounter [facility] 12-15-2023 Note [facility] 12-12-2023 Note [facility] 12-09-2023 Note [facility] 12-04-2023 Note HNO ID: [id number] Author: PEYTON MOELLER MA Service: ? Author Type: Manufacture Specialist Type: Progress Notes Filed: 12/04/2023 13:24 Note Text: Review of Systems Constitutional: Negative for activity change, chills, fever and unexpected weight change. Gastrointestinal: Negative for bowel retention or incontinence Genitourinary: Negative for difficulty urinating. Negative for bladder retention or incontinence Musculoskeletal: Positive for arthralgias, back pain, gait problem, joint swelling, myalgias, neck pain and neck stiffness. Neurological: Positive for weakness and numbness. Negative for headaches. Psychiatric/Behavioral: Positive for dysphoric mood and sleep disturbance. Negative for suicidal ideas. The patient is nervous/anxious. [facility] 12-04-2023 Note HNO ID: [id number] Author: JENNA EARLY APRN.DATABASE SECURITY EXPERT Service: ? Author Type: Nurse Practitioner Type: Progress Notes Filed: 12/04/2023 13:27 Note Text: [facility] Today's Date: 12/04/2023 Name: Chanda Haq : 1960 Purpose: Follow-up Patient Evaluation - This is an established patient, returning today for continued evaluation and management of the chief complaint noted below Chief complaint: neck pain Pertinent Past Medical History: migraine, RLS, cervical radiculopathy, JORDAN, GERD, IBS, Gastroparesis, hypothyroidism, osteopenia lumbar spine, scoliosis, dropped head syndrome, anxiety/depression, bipolar disorder Pertinent Past Surgeries: none Interval History: Overall pain and functional disability since last visit: Better New Complaints since last visit: No Pain Description: Timing: constant Character: Aching Primary Location: Neck Pain Radiation: Into her shoulders Exacerbating factors: activity Relieving factors: ice , heat, and massage Interferes with: ADL's The patient reports she is sleeping better The patient denies difficulty with bowel or bladder control Pt states her neck pain is better. States she continues to see the chiropractor and he is trying to work her lumps out of her neck. Pt states she has issues with sleeping. Pt states she is going to see a neurologist in [place] due to her issues with sleep. Pt states the chiropractor has really helped with the pain. Current Pain Medications: Membrane Stabilizers: Topamax (Topiramate) gabapentin, amitriptyline NSAIDS: none Opioids: none Muscle Relaxants: Zanaflex (Tizanidine) Topicals: none Other Prescription or OTC Pain Medications: Tylenol (Acetaminophen) Tolerating Medication: Yes Medications helping improve ADL's and Self-care: Yes Anti-depressants or Mood-Stabilizers: Cymbalta abilify, Anti-Coagulants: None Therapies Attended (Current or Most Recent): No Current Therapies Notable Events During Course of Treatment: Treatment History: PAIN PROCEDURES: DATE PROCEDURE IMPROVEMENT 07/04/2022 Right Shoulder (Fluoro-guided) No relief 06/20/2022 MBB Left C4-7 + steroids No relief 06/06/2022 MBB Right C4-7 + steroids 90% x 4 hours 04/03/2022 RFA Left C3-4,4-5,5-6 No relief (had flare-up afterwards) 03/20/2022 RFA Right C3-4,4-5,5-6 No relief (had flare-up afterwards) 01/02/2022 MBB Bilat C3-6 (Lido) 100% x 6 hours (positive diagnostic) 12/19/2021 MBB Bilat C3-6 (Bupi) 100% x 6 hours (positive diagnostic) 09/13/2021 ILESI C7-T1 No relief 07/26/2021 TPI No relief Data Reviewed Today: Allergies: ALLERGIES Allergen Reactions Ditropan [Oxybutyni* Other: See Comments Nausea,vomiting Benztropine Other: See Comments, Unknown Cogentin [Benztropi* Other: See Comments Blurred vision Depakote [Divalproe* GI Upset Flagyl [Metronidazo* GI Upset Nausea and vomiting Ibuprofen GI Upset Nexium [Esomeprazol* Unknown Oxybutynin Unknown Oxycodone GI Upset, Unknown Percocet [Oxycodone* Other: See Comments Nausea, RDZ, eye swelling Tylenol [Acetaminop* GI Upset diarrhea with high doses Social History Tobacco Use Smoking status: Some Days Packs/day: 0.50 Years: 44.00 Additional pack years: 0.00 Total pack years: 22.00 Types: Cigarettes Last attempt to quit: 01/07/2018 Years since quittin.9 Smokeless tobacco: Never Tobacco comments: used welbutrin Vaping Use Vaping Use: Never used Substance Use Topics Alcohol use: No Drug use: No INTAKE PAIN ASSESSMENT 11/01/2023 11/30/2023 Are you having pain associated with your visit today? No Yes, Provider notified Pain Scales - - Pain Level - 6 Pain Location - Neck Description - Aching;Stiffness Duration Amount of Time - 12 Duration Units - Months Frequency - Continuous Intervention/Comfort measure - Medication;Cold;Heat;Pillow support Comments - - Pain Assessment - - Compliance: PDMP website checked and validated on 12/04/2023 by Jenna Early APRN.DATABASE SECURITY EXPERT All prescriptions have been APPROPRIATELY filled. No suspicious activity was identified. AG SPINE COMBINATION 06/21/2021 05/08/2022 03/13/2023 09/04/2023 Questionnaire GREENLIGHT - - - Completed Date 06/21/2021 - - - Completed Date - - - 09/04/2023 Comments - - - Monitored Medication Informed Consent Questionnaire Opiod Risk Tool Opiod Risk Tool Opiod Risk Tool - Completed Date 06/21/2021 05/08/2022 03/13/2023 - Comments - - 3 - (All drug screens are appropriate unless indicated otherwise) Risk Assessment: ALISSA-7: ALISSA - 7 SCORES 07/09/2022 07/23/2023 09/22/2023 ALISSA-7 Score 0 2 2 (0-4) mi (more content not included)... [facility] 11-26-2023 Note [facility] 11-21-2023 [facility] 11-19-2023 [facility] 11-01-2023 Note [facility] 11-01-2023 History of Present illness Narrative This note was created using [employer]. Subjective Chanda Haq is a 63 year old female. HPI Patient presents with a chief complaint of cough and chest congestion for 3 weeks. She does have a history of COPD. Cough has been keeping her up at night. No fever. She has had some sinus pressure and congestion as well. Denies chest pain or shortness of breath. She has been using her albuterol. No home COVID test done. No vomiting or diarrhea. Denies sick contacts. Review of Systems Constitutional: Negative. HENT: Positive for congestion, sinus pressure and sinus pain. Negative for ear pain. Respiratory: Positive for cough and wheezing. Negative for shortness of breath. Cardiovascular: Negative. Gastrointestinal: Negative. Genitourinary: Negative. Musculoskeletal: Negative. Skin: Negative. All other systems reviewed and are negative. PAST MEDICAL HISTORY Diagnosis Date Acquired hypothyroidism 08/22/2015 ACUTE GASTRITIS W/O HEMORRHAGE 02/05/2006 Advance directive discussed with patient 04/02/2023 Discussed 03/2023: Up to date Anxiety and depression 10/05/2020 Arthritis 05/18/2020 Arthritis of lumbar spine 03/05/2022 Mod Arthritis of right foot 09/02/2018 At high risk for falls 09/02/2018 Backache, unspecified 01/11/2013 Bilateral carotid artery stenosis 09/25/202009/2020 20-40% bilaterally Bipolar I disorder (HCC) 12/20/2005 Seeds Stinger at [facility] Cervical disc disorder with radiculopathy 09/27/2021 Cervical radiculopathy 09/19/2021 Cervical spondylosis 09/19/2021 Seeing pain management Cervical spondylosis without myelopathy 09/27/2021 Cervical stenosis of spinal canal 09/19/2021 Chronic pain of left knee 06/19/2019 Class 1 obesity due to excess calories without serious comorbidity with body mass index (BMI) of 33.0 to 33.9 in adult 03/03/2018 Current use of proton pump inhibitor 03/03/2018 Diaphragmatic hernia without mention of obstruction or gangrene 02/05/2006 Elevated hemoglobin A1c 06/29/2018 Encounter for screening mammogram for breast cancer 03/05/2019 Ex-smoker 08/22/2015 Started at age 14 and has smoked up to 1/2 a PPD, quit 12/2017 External hemorrhoids without mention of complication Gastroesophageal reflux disease with esophagitis 08/22/2015 Gastroparesis 01/30/2023 Hearing loss Hearing aids in both ears. Hiatal hernia 02/19/2023 small History of transient ischemic attack (TIA) 11/05/2019 Incontinence 02/20/[address] Jordan Irritable bowel syndrome with constipation 03/03/2018 Lactose intolerance 03/05/2019 Living will on file at physician's office 04/02/2023 DPA: John () Lung nodules 12/11/2017 CT 12/11/[address] 05/2018 stable needs repeat in 2 yrs Medicare annual wellness visit, subsequent 03/03/2018 Medicare Part B: 06/17/2001 last done: 03/05/2019 Migraine without aura and without status migrainosus, not intractable 05/22/2016 Mixed hyperlipidemia 08/22/2015 JORDAN (obstructive sleep apnea) 09/02/2018 DME DASCO Osteopenia of lumbar spine 11/27/2020 Borderline on DXA 11/2020 Other constipation 07/21/2019 Overactive bladder 05/30/2015 Personal history of fibromyalgia 06/17/2023 Patient mentions this at appt on 06/17/2023 Primary insomnia 07/30/2018 Primary osteoarthritis of left knee 11/05/2019 RLS (restless legs syndrome) 06/04/2019 S/P total knee arthroplasty, left 10/18/2020 Smoker 08/22/2015 Started at age 14 and has smoked up to 1/2 a PPD, quit 12/2017 Thoracic arthritis 03/05/2022 Mild Vitamin D deficiency 01/25/2020 Current Outpatient Medications Medication Sig Dispense Refill doxycycline (VIBRA-TABS) 100 mg tablet Take 1 tablet by mouth two times a day for 7 days. 14 tablet 0 benzonatate (TESSALON PERLES) 100 mg capsule Take 2 capsules by mouth three times a day as needed. 30 capsule 0 predniSONE (DELTASONE) 20 mg tablet Take 2 tablets by mouth once daily for 5 days. 10 tablet 0 rimegepant (NURTEC ODT) 75 mg disintegrating tablet Take 1 tablet by mouth once daily as needed. 8 tablet 5 plecanatide (TRULANCE) 3 mg tablet Take 1 tablet (3 mg) by mouth once daily. 60 tablet 2 levothyroxine (SYNTHROID) 137 mcg tablet Take 1 tablet by mouth once daily. 90 tablet 0 ergocalciferol 50,000 unit capsule (VITAMIN D2, DRISDOL) Take 1 capsule by mouth one time a week. 12 capsule 3 cyanocobalamin (VITAMIN B-12) 1,000 mcg tab Take 1 tablet by mouth once daily. 90 tablet 1 rosuvastatin (CRESTOR) 40 mg tablet Take 1 tablet by mouth daily at bedtime. 90 tablet 1 gabapentin (NEURONTIN) 400 mg capsule Take 1 capsule by mouth daily at bedtime for 90 days. 90 capsule 0 amitriptyline (ELAVIL) 25 mg tablet Take 1 tablet by mouth daily at bedtime. 90 tablet 1 Fenofibrate (LOFIBRA) 54 mg tablet Take 1 tablet by mouth once daily. 30 tablet 5 metFORMIN ER (GLUCOPHAGE XR) 500 mg 24 hr tablet Take 1 tablet by mouth daily with breakfast. 30 tablet 11 ezetimibe (ZETIA) 10 mg tablet Take 1 tablet by mouth once daily. 90 tablet 1 rOPINIRole (REQUIP) 1 mg tablet Take one tab by mouth before bed. 90 tablet 1 topiramate (TOPAMAX) 100 mg tablet Take 1 tablet by mouth two times a day. 60 tablet 5 ARIPiprazole (ABILIFY) 15 mg tablet Take 1 tablet by mouth once daily. [address] (PROTONIX) 40 mg tablet Take 1 tablet by mouth two times a day. Take on empty stomach, 1/2 hr before meal. 180 tablet 1 DULoxetine (CYMBALTA) 30 mg capsule Take 1 capsule by mouth once daily. [facility] 90 capsule 1 fluticasone (FLONASE) 50 mcg/actuation nasal spray Use 1 Center Sandwich in each nostril daily at bedtime. 1 Each 0 AMOXICILLIN, BULK, MISC FISH OIL-DHA-EPA ORAL Take by mouth. Daily blood sugar diagnostic (BLOOD GLUCOSE TEST) test strip Test blood sugar(s) 1 times daily. Dx: Other DM Code R73.09 Insulin: No 50 Strip 11 Lancets lancets Test blood sugar(s) 1 times daily. Dx: Other DM Code R73.09 Insulin: No 100 Each 11 albuterol HFA (PROVENTIL HFA, VENTOLIN HFA) 90 mcg/actuation inhaler Inhale 2 Puffs as instructed every 4 hours as needed for wheezing/shortness of breath. 18 g 1 Food Supplement, Lactose-Free (PROMOTE, OSMOLITE, TWO FABIENNE, ENSURE PLUS, ENLIVE) liqd Take 237 mL by mouth three times daily with meals. 55210 mL 3 aspirin, enteric coated (ASPIRIN, ENTERIC COATED) 81 mg EC tablet Take 81 mg by mouth every other day. CPAP Mask fitting and 30 day download for autopap 10 -20 cm H2O & formal mask refitting for medical necessity & schedule with the RT, chin strap, head gear, humidity, heated tubing (SACHI), lifetime supplies. G47.33 JORDAN (Patient not taking: Reported on 10/20/2023) lactase (LACTAID) 3,000 unit tablet Take 1 tablet by mouth three times daily with meals. 90 tablet 5 acetaminophen (TYLENOL ARTHRITIS ORAL) Take 650 mg by mouth every 8 hours as needed. COMPOUNDED PRESCRIPTION Wheeled rolator walker with nd breaks and seat, # 1, Dx:M19.071, Z91.071 1 Device 1 No current facility-administered medications for this visit. PAST SURGICAL HISTORY Procedure Laterality Date 48 HOUR PH STUDY 02/19/2023 Dr. Domínguez ARTHROSCOPY KNEE DIAGNOSTIC W/WO SYNOVIAL BX SPX Left ARTHRS KNE SURG W/MENISCECTOMY MED/LAT W/SHVG Left 12/01/2019 COLONOSCOPY 02/28/2009 COLONOSCOPY 02/04/2018 COLONOSCOPY 08/11/2019 one polyp, repeat 10 yrs COLONOSCOPY 12/10/2022 Hyperplastic rectal polyp CYSTOURETHROSCOPY 10/05/2015 EGD WITH BIOPSY(S) 02/05/2006 EGD WITH BIOPSY(S) 12/21/2014 EGD WITH BIOPSY(S) 03/29/2015 EGD WITH BIOPSY(S) 03/24/2018 Dr. Garcia reported as normal. Neg for Hpylori and celiac. EGD WITH BIOPSY(S) 12/10/2022 Mild nonspecific inflammation in stomach EGD WITH BIOPSY(S) 02/19/2023 small hiatal hernia; Dr. Domínguez EXC/DSTRJ LINGUAL TONSIL ANY METHOD SPX remote MANOMETRY ESOPHAGEAL 02/19/2023 Dr. Britt PAST SURGICAL HISTORY OF 10/05/2015 TOT monarc sling PAST SURGICAL HISTORY OF Left 05/03/2016 ulnar nerve decompression PER ORAL PYLOROMYOTOMY (POP) PROCEDURE (COMP 84261) 05/08/2023 Dr. Domínguez TOTAL KNEE REPLACEMENT Left 10/18/2020 FAMILY HISTORY Problem Relation Age of Onset Cancer Mother Hysterectomy Alcohol/Drug Father Alcoholic other (Leukemia) Sister shortly after Heart Attack Brother x 2 Diabetes Brother Heart Maternal Grandmother Hearing Loss Maternal Grandmother Headache Maternal Grandmother Diabetes Maternal Grandmother Stroke Maternal Grandmother Heart Maternal Grandfather Diabetes Maternal Grandfather No Known Problems Paternal Grandmother No Known Problems Paternal Grandfather Coronary Artery Disease Son Hyperlipidemia Son Hypertension Son Hyperlipidemia Son No Known Problems Son Colon Cancer No Family History Social History Tobacco Use Smoking status: Some Days Packs/day: 0.50 Years: 44.00 Additional pack years: 0.00 Total pack years: 22.00 Types: Cigarettes Last attempt to quit: 01/07/2018 Years since quittin.8 Smokeless tobacco: Never Tobacco comments: used welbutrin Vaping Use Vaping Use: Never used Substance Use Topics Alcohol use: No Drug use: No Objective BP 121/75 Pulse 74 Temp 36.9 C (98.4 F) Resp 18 Wt 80.9 kg (178 lb 6.4 oz) SpO2 98% BMI 31.60 kg/m Physical Exam Vitals reviewed. Constitutional: Appearance: Normal appearance. HENT: Head: Normocephalic and atraumatic. Right Ear: Tympanic membrane, ear canal and external ear normal. Left Ear: Tympanic membrane, ear canal and external ear normal. Nose: Congestion present. Mouth/Throat: Mouth: Mucous membranes are moist. Pharynx: Oropharynx is clear. Cardiovascular: Rate and Rhythm: Normal rate and regular rhythm. Heart sounds: Normal heart sounds. Pulmonary: Effort: Pulmonary effort is normal. Breath sounds: Normal breath sounds. Musculoskeletal: Cervical back: Neck supple. Skin: General: Skin is warm and dry. Neurological: Mental Status: She is alert. Assessment and Plan ASSESSMENT/PLAN: 1. COPD with exacerbation (HCC) - ICD9: 491.21, ICD10: J44.1 Will treat with doxycycline, Tessalon and prednisone. Follow-up with PCP if not improving. - DOXYCYCLINE HYCLATE 100 MG TABLET - BENZONATATE 100 MG CAPSULE - PREDNISONE 20 MG TABLET iLa Winkler PA-C documented in this encounter [facility] 10-29-2023 Note [facility] 10-29-2023 History of Present illness Narrative Images from the original note were not included. [facility] - Follow Up Visit Accompanied by: Self Primary Problem List: ACTIVE PROBLEM LIST Bipolar I Disorder (Hcc) Diaphragmatic hernia without mention of obstruction or gangrene Backache, Unspecified Incontinence Overactive Bladder Mixed Hyperlipidemia Ex-Smoker Gastroesophageal Reflux Disease With Esophagitis Acquired Hypothyroidism Migraine Without Aura and Without Status Migrainosus, Not Intractable Lung Nodules Encounter for Gynecological Examination Medicare Annual Wellness Visit, Subsequent Class 1 Obesity Due to Excess Calories Without Serious Comorbidity With Body Mass Index (Bmi) of 33.0 to 33.9 in Adult Irritable Bowel Syndrome With Constipation Elevated Hemoglobin A1c Primary Insomnia Jordan (Obstructive Sleep Apnea) At High Risk for Falls Arthritis of Right Foot Hearing Loss Lactose Intolerance Encounter for Screening Mammogram for Breast Cancer Rls (Restless Legs Syndrome) Chronic Pain of Left Knee Other Constipation History of Transient Ischemic Attack (Tia) Primary Osteoarthritis of Left Knee Vitamin D Deficiency Arthritis Bilateral Carotid Artery Stenosis Anxiety and Depression S/P Total Knee Arthroplasty, Left Osteopenia of Lumbar Spine Cervical Spondylosis Cervical Stenosis of Spinal Canal Cervical Radiculopathy Cervical Spondylosis Without Myelopathy Cervical Disc Disorder With Radiculopathy Thoracic Arthritis Arthritis of Lumbar Spine Lumbar Pain Acute Right-Sided Thoracic Back Pain Nausea Scoliosis Neck Pain Neck Muscle Weakness Dropped Head Syndrome Radiculopathy, Cervical Region Gastroparesis Gastric Diverticulum Advance Directive Discussed With Patient Living Will On File At Physician's Office Pulmonary Emphysema (Hcc) Paraesophageal Hernia Personal History of Fibromyalgia Medication Management Chief Complaint: Patient presents with: Established Patient: Established NI Patient Impression and Plan from last visit 01/22/2023, me: IMPRESSION: Chanda Haq is a 62 year old year old female, with a history of JORDAN, LTKRA, expansile skull mass, bipolar 1 disorder, and migraines. Her neurological examination is essentially normal at this visit. Headaches have improved with increasing Topamax to 100 bid, with slight but tolerable increase in ae of drowsiness. She should not be using triptans given her numerous cardiovascular risk factors (HTN, HLD, CAD, pre DM, hx of TIA) so we started Nurtec, which she is tolerating well with good effect. Stable on current regimen. Does not wish to make changes today. Discussed the importance of hydration while on Topamax. Labs are up to date. Refills provided. PLAN: - cont topamax 100 bid - cont elavil 25 daily - cont cymbalta 30 daily - cont nurtec +/- tizanidine prn - follow up in 6 months, sooner prn Interval Headache History: Chanda Haq is a 63 year old year old female, with a history of Chanda Twyla Hqa is a 62 year old year old female, with a history of JORDAN, LTKRA, expansile skull mass, bipolar 1 disorder, and migraines following up today for headaches. Since the last visit, the patient states that her headaches have been worse. She has been sick recently with sinus and ear infections, UTI, has missed allergy shots, thyroid has been off, so hasn't been feeling well. She feels overwhelmed by her med regimen and will have pharmacy manage and deliver her meds in pill packs. Apart from the past couple months though she feels the regimen of topamax, cymbalta, and elavil keeps her headaches under control. When she takes nurtec for rescue, it gives her relief within an hour. She will take it and lay down, falls asleep and when she wakes up the headache is gone. No side effects. Headache 1 Number of migraine headache days/month: 5 Number of headache free days/month: 5 Days missed from work or school in the last month: 5 days Preventative: Topamax 100 bid , Elavil 25, Cymbalta 30 Abortive: Nurtec, tizanidine, ice Medications effective? yes # of doses of abortive medications per month: 5 Prior Therapies Duration of Use Dose Reason for Discontinuation PAST MEDICAL HISTORY Diagnosis Date Acquired hypothyroidism 08/22/2015 ACUTE GASTRITIS W/O HEMORRHAGE 02/05/2006 Advance directive discussed with patient 04/02/2023 Discussed 03/2023: Up to date Anxiety and depression 10/05/2020 Arthritis 05/18/2020 Arthritis of lumbar spine 03/05/2022 Mod Arthritis of right foot 09/02/2018 At high risk for falls 09/02/2018 Backache, unspecified 01/11/2013 Bilateral carotid artery stenosis 09/25/202009/2020 20-40% bilaterally Bipolar I disorder (HCC) 12/20/2005 [facility] Stinger at [facility] Cervical disc disorder with radiculopathy 09/27/2021 Cervical radiculopathy 09/19/2021 Cervical spondylosis 09/19/2021 Seeing pain management Cervical spondylosis without myelopathy 09/27/2021 Cervical stenosis of spinal canal 09/19/2021 Chronic pain of left knee 06/19/2019 Class 1 obesity due to excess calories without serious comorbidity with body mass index (BMI) of 33.0 to 33.9 in adult 03/03/2018 Current use of proton pump inhibitor 03/03/2018 Diaphragmatic hernia without mention of obstruction or gangrene 02/05/2006 Elevated hemoglobin A1c 06/29/2018 Encounter for screening mammogram for breast cancer 03/05/2019 Ex-smoker 08/22/2015 Started at age 14 and has smoked up to 1/2 a PPD, quit 12/2017 External hemorrhoids without mention of complication Gastroesophageal reflux disease with esophagitis 08/22/2015 Gastroparesis 01/30/2023 Hearing loss Hearing aids in both ears. Hiatal hernia 02/19/2023 small History of transient ischemic attack (TIA) 11/05/2019 Incontinence 02/20/[address] Jordan Irritable bowel syndrome with constipation 03/03/2018 Lactose intolerance 03/05/2019 Living will on file at physician's office 04/02/2023 DPA: John () Lung nodules 12/11/2017 CT 12/11/[address] 05/2018 stable needs repeat in 2 yrs Medicare annual wellness visit, subsequent 03/03/2018 Medicare Part B: 06/17/2001 last done: 03/05/2019 Migraine without aura and without status migrainosus, not intractable 05/22/2016 Mixed hyperlipidemia 08/22/2015 JORDAN (obstructive sleep apnea) 09/02/2018 DME DASCO Osteopenia of lumbar spine 11/27/2020 Borderline on DXA 11/2020 Other constipation 07/21/2019 Overactive bladder 05/30/2015 Personal history of fibromyalgia 06/17/2023 Patient mentions this at appt on 06/17/2023 Primary insomnia 07/30/2018 Primary osteoarthritis of left knee 11/05/2019 RLS (restless legs syndrome) 06/04/2019 S/P total knee arthroplasty, left 10/18/2020 Smoker 08/22/2015 Started at age 14 and has smoked up to 1/2 a PPD, quit 12/2017 Thoracic arthritis 03/05/2022 Mild Vitamin D deficiency 01/25/2020 PAST SURGICAL HISTORY Procedure Laterality Date 48 HOUR PH STUDY 02/19/2023 Dr. Domínguez ARTHROSCOPY KNEE DIAGNOSTIC W/WO SYNOVIAL BX SPX Left ARTHRS KNE SURG W/MENISCECTOMY MED/LAT W/SHVG Left 12/01/2019 COLONOSCOPY 02/28/2009 COLONOSCOPY 02/04/2018 COLONOSCOPY 08/11/2019 one polyp, repeat 10 yrs COLONOSCOPY 12/10/2022 Hyperplastic rectal polyp CYSTOURETHROSCOPY 10/05/2015 EGD WITH BIOPSY(S) 02/05/2006 EGD WITH BIOPSY(S) 12/21/2014 EGD WITH BIOPSY(S) 03/29/2015 EGD WITH BIOPSY(S) 03/24/2018 Dr. Garcia reported as normal. Neg for Hpylori and celiac. EGD WITH BIOPSY(S) 12/10/2022 Mild nonspecific inflammation in stomach EGD WITH BIOPSY(S) 02/19/2023 small hiatal hernia; Dr. Domínguez EXC/DSTRJ LINGUAL TONSIL ANY METHOD SPX remote MANOMETRY ESOPHAGEAL 02/19/2023 Dr. Britt PAST SURGICAL HISTORY OF 10/05/2015 TOT monarc sling PAST SURGICAL HISTORY OF Left 05/03/2016 ulnar nerve decompression PER ORAL PYLOROMYOTOMY (POP) PROCEDURE (COMP 45853) 05/08/2023 Dr. Monfared TOTAL KNEE REPLACEMENT Left 10/18/2020 ALLERGIES Allergen Reactions Ditropan [Oxybutyni* Other: See Comments Nausea,vomiting Benztropine Other: See Comments, Unknown Cogentin [Benztropi* Other: See Comments Blurred vision Depakote [Divalproe* GI Upset Flagyl [Metronidazo* GI Upset Nausea and vomiting Ibuprofen GI Upset Nexium [Esomeprazol* Unknown Oxybutynin Unknown Oxycodone GI Upset, Unknown Percocet [Oxycodone* Other: See Comments Nausea, RDZ, eye swelling Tylenol [Acetaminop* GI Upset diarrhea with high doses Current Medications: plecanatide (TRULANCE) 3 mg tablet Take 1 tablet (3 mg) by mouth once daily. levothyroxine (SYNTHROID) 137 mcg tablet Take 1 tablet by mouth once daily. ergocalciferol 50,000 unit capsule (VITAMIN D2, DRISDOL) Take 1 capsule by mouth one time a week. cyanocobalamin (VITAMIN B-12) 1,000 mcg tab Take 1 tablet by mouth once daily. rosuvastatin (CRESTOR) 40 mg tablet Take 1 tablet by mouth daily at bedtime. gabapentin (NEURONTIN) 400 mg capsule Take 1 capsule by mouth daily at bedtime for 90 days. amitriptyline (ELAVIL) 25 mg tablet Take 1 tablet by mouth daily at bedtime. Fenofibrate (LOFIBRA) 54 mg tablet Take 1 tablet by mouth once daily. metFORMIN ER (GLUCOPHAGE XR) 500 mg 24 hr tablet Take 1 tablet by mouth daily with breakfast. ezetimibe (ZETIA) 10 mg tablet Take 1 tablet by mouth once daily. rOPINIRole (REQUIP) 1 mg tablet Take one tab by mouth before bed. topiramate (TOPAMAX) 100 mg tablet Take 1 tablet by mouth two times a day. ARIPiprazole (ABILIFY) 15 mg tablet Take 1 tablet by mouth once daily. pantoprazole DR (PROTONIX) 40 mg tablet Take 1 tablet by mouth two times a day. Take on empty stomach, 1/2 hr before meal. DULoxetine (CYMBALTA) 30 mg capsule Take 1 capsule by mouth once daily. [facility] fluticasone (FLONASE) 50 mcg/actuation nasal spray Use 1 Center Sandwich in each nostril daily at bedtime. AMOXICILLIN, BULK, MISC FISH OIL-DHA-EPA ORAL Take by mouth. Daily blood sugar diagnostic (BLOOD GLUCOSE TEST) test strip Test blood sugar(s) 1 times daily. Dx: Other DM Code R73.09 Insulin: No Lancets lancets Test blood sugar(s) 1 times daily. Dx: Other DM Code R73.09 Insulin: No albuterol HFA (PROVENTIL HFA, VENTOLIN HFA) 90 mcg/actuation inhaler Inhale 2 Puffs as instructed every 4 hours as needed for wheezing/shortness of breath. Food Supplement, Lactose-Free (PROMOTE, OSMOLITE, TWO FABIENNE, ENSURE PLUS, ENLIVE) liqd Take 237 mL by mouth three times daily with meals. aspirin, enteric coated (ASPIRIN, ENTERIC COATED) 81 mg EC tablet Take 81 mg by mouth every other day. lactase (LACTAID) 3,000 unit tablet Take 1 tablet by mouth three times daily with meals. acetaminophen (TYLENOL ARTHRITIS ORAL) Take 650 mg by mouth every 8 hours as needed. COMPOUNDED PRESCRIPTION Wheeled rolator walker with [facility] breaks and seat, # 1, Dx:M19.071, Z91.071 rimegepant (NURTEC ODT) 75 mg disintegrating tablet Take 1 tablet by mouth once daily as needed. CPAP Mask fitting and 30 day download for autopap 10 -20 cm H2O & formal mask refitting for medical necessity & schedule with the RT, chin strap, head gear, humidity, heated tubing (SACHI), lifetime supplies. G47.33 JORDAN (Patient not taking: Reported on 10/20/2023) I have reviewed the Health Status Assessment responses and discussed these with the patient: yes Gogo Lowery APRN.DATABASE SECURITY EXPERT HEADACHE SCORES: Headache Questions 01/07/2023 01/15/2023 10/27/2023 ID Migraine Screener: - - - ER visits in the last year: - - - ER visits since last office visit: 0 - 0 Hospital stays in the last year: - - - Hospital stays since last office visit 0 - 0 Limited ADLs in the last month: 5 - 5 Days missed from work or school in the last month: 5 - 5 Days headache pain free in the last month: 25 - 5 Days per month with ALL of the following symptoms - decreased productivity, light sensitivity and nausea: 5 - 5 Initial improvement of headache after botox injection at last visit: Not applicable, I did not have a botox injection at my last visit - Not applicable, I did not have a botox injection at my last visit PRN medication usage in the last month: 5 - 5 Patient impression of improvement since last visit: Much improved Much improved Much improved ALISSA - 2/7 SCORES 07/23/2023 09/22/2023 10/27/2023 ALISSA-2 Score 1 1 0 ALISSA-7 Score 2 2 - Migraine Specific QOL - Higher scores indicate better HRQL 01/07/2023 01/15/2023 10/27/2023 Role Function-Restrictive Transformed Score (range: 0-100) 60 60 57.14 Role Function-Preventive Transformed Score (range: 0-100) 60 60 40 Emotional Function Transformed Score (range: 0-100) 60 60 66.67 PHQ-9 07/23/2023 09/22/2023 10/27/2023 Score 8 7 3 Studies to Review: No Labs to Review Yes, Office Visit on 10/19/2023 Component Date Value GLUCOSE UA (POCT) 10/19/2023 100 (A) BILIRUBIN UA (POCT) 10/19/2023 Small (A) KETONE UA (POCT) 10/19/2023 Trace SPECIFIC GRAVITY UA (POC* 10/19/2023 1.015 HEMOGLOBIN/BLOOD UA (PO* 10/19/2023 Large (A) PH UA (POCT) 10/19/2023 6.5 PROTEIN UA (POCT) 10/19/2023 >=300 (A) UROBILINOGEN UA (POCT) 10/19/2023 4.0 (A) NITRITE UA (POCT) 10/19/2023 Positive (A) LEUKOCYTES UA (POCT) 10/19/2023 Large (A) COLOR UA (POCT) 10/19/2023 [place] CLARITY UA (POCT) 10/19/2023 Clear Culture, Urine 10/19/2023 >=100,000 CFU/ml Escherichia coli (A) Appointment on 09/19/2023 Component Date Value Vitamin D 25 Hydroxy 09/19/2023 29.2 (L) Vitamin B12 09/19/2023 672 Protein, Total 09/19/2023 7.1 Albumin 09/19/2023 4.2 Calcium, Total 09/19/2023 9.6 Bilirubin, Total 09/19/2023 0.3 Alkaline Phosphatase 09/19/2023 59 AST 09/19/2023 14 ALT 09/19/2023 10 Glucose 09/19/2023 105 (H) BUN 09/19/2023 22 (H) Creatinine 09/19/2023 0.87 Sodium 09/19/2023 141 Potassium 09/19/2023 4.1 Chloride 09/19/2023 110 (H) CO2 09/19/2023 21 (L) Anion Gap 09/19/2023 10 Estimated Glomerular N[place]un* 09/19/2023 74 Hemoglobin A1C 09/19/2023 6.0 (H) Estimated Average Glucose 09/19/2023 126 TSH 09/19/2023 0.161 (L) Color 09/19/2023 Yellow Clarity 09/19/2023 Clear Glucose, Urine 09/19/2023 Negative Bilirubin, Urine 09/19/2023 Negative Ketones, Urine 09/19/2023 Negative Specific [place], Ur 09/19/2023 1.015 Hemoglobin/Blood,Ur 09/19/2023 Negative pH, Urine 09/19/2023 6.5 Protein, Urine 09/19/2023 Negative Urobilinogen 09/19/2023 0.2 EU/dL Nitrites 09/19/2023 Negative Leuk Esterase 09/19/2023 Negative WBC, Urine 09/19/2023 0-5 /HPF RBC, Urine 09/19/2023 3-5 /HPF (A) Bacteria 09/19/2023 Negative Squamous Epithelial Cells 09/19/2023 None Seen Casts, Hyaline 09/19/2023 0 /LPF Total Cholesterol, Nonfa* 09/19/2023 138 Triglycerides, Nonfasting 09/19/2023 128 HDL Cholesterol, Nonfast* 09/19/2023 39 (L) LDL Cholesterol, Nonfast* 09/19/2023 73 Non HDL Cholesterol, Non* 09/19/2023 99 VLDL Cholesterol, Nonfas* 09/19/2023 26 Total Chol/HDL Ratio, No* 09/19/2023 3.54 LDL/HDL Ratio, Nonfasting 09/19/2023 1.87 Magnesium 09/19/2023 2.2 WBC 09/19/2023 6.18 RBC 09/19/2023 4.30 Hemoglobin 09/19/2023 12.3 Hematocrit 09/19/2023 38.0 MCV 09/19/2023 88.4 MCH 09/19/2023 28.6 MCHC 09/19/2023 32.4 RDW-CV 09/19/2023 14.6 Platelet Count 09/19/2023 322 MPV 09/19/2023 10.5 Neutrophils % 09/19/2023 53.1 Abs Neut 09/19/2023 3.28 Lymphocytes % 09/19/2023 37.5 Abs Lymph 09/19/2023 2.32 Monocytes % 09/19/2023 7.6 Abs Josephine 09/19/2023 0.47 Eosinophils % 09/19/2023 1.0 Abs Eosin 09/19/2023 0.06 Basophils % 09/19/2023 0.6 Abs Baso 09/19/2023 0.04 Immature Granulocytes % 09/19/2023 0.2 Abs Immature Gran 09/19/2023 <0.03 NRBC 09/19/2023 0.0 Absolute nRBC 09/19/2023 <0.01 Diff Type 09/19/2023 Auto Office Visit on 09/14/2023 Component Date Value GLUCOSE UA (POCT) 09/14/2023 Negative BILIRUBIN UA (POCT) 09/14/2023 Negative KETONE UA (POCT) 09/14/2023 Negative SPECIFIC GRAVITY UA (POC* 09/14/2023 1.025 HEMOGLOBIN/BLOOD UA (PO* 09/14/2023 Large (A) PH UA (POCT) 09/14/2023 5.5 PROTEIN UA (POCT) 09/14/2023 100 (A) UROBILINOGEN UA (POCT) 09/14/2023 0.2 NITRITE UA (POCT) 09/14/2023 Positive (A) LEUKOCYTES UA (POCT) 09/14/2023 Small (A) COLOR UA (POCT) 09/14/2023 [place]ita CLARITY UA (POCT) 09/14/2023 Cloudy Culture, Urine 09/14/2023 >=100,000 CFU/ml Escherichia coli (A) Review of Systems: Review of system : unchanged from the previous visit (sleep patterns, mood, energy, appetite, stress, exercising). Physical Examination: VS: BP 119/63 (BP Site: Right Arm, BP Position: Sitting, BP Cuff Size: Regular Adult) Pulse 68 Ht 160 cm (5' 3 ) Wt 83 kg (183 lb) SpO2 97% BMI 32.42 kg/m General: well appearing, in no acute distress, alert HEENT: Normocephalic/atraumatic. Skin: Color, texture, turgor normal. No rashes or lesions Musculoskeletal: No gross joint deformities. Neurological: Pain Behaviors: no pain behaviors observed Mental Status: Alert and oriented to person, place and time. Affect is normal. Speech is spontaneous and fluent without dysarthria. 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 Attention span and concentration are excellent. Cranial Nerves: II-Visual jacobsen are full. III, IV, -EOMI, VII-face is symmetric without evidence of weakness. VIII-hearing grossly intact. XII-No atrophy or fasciculations of the tongue. Motor: Normal muscle tone and bulk. No evidence of atrophy or fasciculations. Gait examination is normal. IMPRESSION: Chanda Haq is a 63 year old year old female, with a history of JORDAN, LTKRA, expansile skull mass, bipolar 1 disorder, and migraines. Her neurological examination is essentially normal at this visit. Headaches have worsened recently in the setting of multiple illnesses from which she is recovering, but are otherwise well controlled on Topamax, Elavil, and Cymbalta. She should not be using triptans given her numerous cardiovascular risk factors (HTN, HLD, CAD, pre DM, hx of TIA) so we started Nurtec, which has been a very effective rescue medication for her that she tolerates well. She is overall stable on current regimen so we will continue the same. Labs are up to date (TSH to be rechecked next month). Refills provided. PLAN: - cont topamax 100 bid - cont cymbalta 30 - cont elavil 25 - cont nurtec prn, rx refill sent to pharmacy Prior Authorizations: Chanda Haq has been previously approved for an Oral Calcitonin Gene-Related Peptide Receptor Antagonist (GEPANT) Rimegepant for the treatment of abortive use. The patient has demonstrated the following: Provider attests patient has had a positive clinical response: Yes Patient will not use with another Oral Calcitonin Gene-Related Peptide Receptor Antagonist (GEPANT): Yes Patient's quality of life and ability to perform ADLs has improved: Yes The patient has a contraindication CAD and tried and failed the following : We suggest the patient continue treatment with GEPANT Rimegepant. The following preventative medications have been tried for three or more months without benefit: The following abortive medications have been tried but require high frequency use which can lead to Medication Overuse Headache: HEADACHE MANAGEMENT: (You are the primary guardian of your health and headache. Keep track of all medications: This includes the reason for use, side effects and benefits.) MEDICATION TREATMENT: Medications to Start Taking rimegepant (NURTEC ODT) 75 mg disintegrating tablet Take 1 tablet by mouth once daily as needed. Discussed pathophysiology of headache. Discussed use of headache diary. Discussed triggers and lifestyle modifications including limiting caffeine consumption. Discussed treatment options, both abortive and preventive medications. Instructed patient about medications. Discussed potential adverse effects and drug interactions of medications. Discussed migraine and stroke risk. Headache education was done. Discussed lifestyle modification including increased oral hydration, decreased caffeine, exercise and stress management. Discussed treatment options including preventive and acute medications, natural supplements, and infusion therapy. Discussed medication overuse headache and to limit use of acute treatments to no more than 2 days/week or 10 days/month. Discussed medication side effects, adverse reactions and drug interactions. Follow-up: 6 months, PRN Level of service: Est level 4 (30-39 min). Time spent 30 min on the day of service, which included preparing to see the patient, [id number] patient care, completing clinical documentation, obtaining and/or reviewing separately obtained history, counseling and educating the patient/family/caregiver, ordering medications, tests, or procedures, independently interpreting results (not separately reported), communicating results to the patient/family/caregiver, and care coordination (not separately reported). Gogo Lowery APRN.MARY ELLEN Headache Section [facility] October 29, 2023 documented in this encounter [facility] 10-27-2023 Note [facility] 10-27-2023 History of Present illness Narrative Chief Complaint Patient presents with: Follow Up HPI Chanda Haq is a 63 year old female who presents here today for Above Complaints.. Patient presents for concerns with medications. Patient reports she currently has a cold but is otherwise doing well. Patient reports she is overwhelmed with her medications and getting them set up. Patient currently has a pill container that buzzes but she states she gets overwhelmed with filling it as she is on many medications. She also has difficulty with getting the pills into the container due to arthritis. Past medical history, appointments, medications, allergies reviewed. Previous Medical History PAST MEDICAL HISTORY Diagnosis Date Acquired hypothyroidism 08/22/2015 ACUTE GASTRITIS W/O HEMORRHAGE 02/05/2006 Advance directive discussed with patient 04/02/2023 Discussed 03/2023: Up to date Anxiety and depression 10/05/2020 Arthritis 05/18/2020 Arthritis of lumbar spine 03/05/2022 Mod Arthritis of right foot 09/02/2018 At high risk for falls 09/02/2018 Backache, unspecified 01/11/2013 Bilateral carotid artery stenosis 09/25/202009/2020 20-40% bilaterally Bipolar I disorder (HCC) 12/20/2005 Seeds Stinger at [facility] Cervical disc disorder with radiculopathy 09/27/2021 Cervical radiculopathy 09/19/2021 Cervical spondylosis 09/19/2021 Seeing pain management Cervical spondylosis without myelopathy 09/27/2021 Cervical stenosis of spinal canal 09/19/2021 Chronic pain of left knee 06/19/2019 Class 1 obesity due to excess calories without serious comorbidity with body mass index (BMI) of 33.0 to 33.9 in adult 03/03/2018 Current use of proton pump inhibitor 03/03/2018 Diaphragmatic hernia without mention of obstruction or gangrene 02/05/2006 Elevated hemoglobin A1c 06/29/2018 Encounter for screening mammogram for breast cancer 03/05/2019 Ex-smoker 08/22/2015 Started at age 14 and has smoked up to 1/2 a PPD, quit 12/2017 External hemorrhoids without mention of complication Gastroesophageal reflux disease with esophagitis 08/22/2015 Gastroparesis 01/30/2023 Hearing loss Hearing aids in both ears. Hiatal hernia 02/19/2023 small History of transient ischemic attack (TIA) 11/05/2019 Incontinence 02/20/[address] Jordan Irritable bowel syndrome with constipation 03/03/2018 Lactose intolerance 03/05/2019 Living will on file at physician's office 04/02/2023 DPA: John () Lung nodules 12/11/2017 CT 12/11/[address] 05/2018 stable needs repeat in 2 yrs Medicare annual wellness visit, subsequent 03/03/2018 Medicare Part B: 06/17/2001 last done: 03/05/2019 Migraine without aura and without status migrainosus, not intractable 05/22/2016 Mixed hyperlipidemia 08/22/2015 JORDAN (obstructive sleep apnea) 09/02/2018 DME DASCO Osteopenia of lumbar spine 11/27/2020 Borderline on DXA 11/2020 Other constipation 07/21/2019 Overactive bladder 05/30/2015 Personal history of fibromyalgia 06/17/2023 Patient mentions this at appt on 06/17/2023 Primary insomnia 07/30/2018 Primary osteoarthritis of left knee 11/05/2019 RLS (restless legs syndrome) 06/04/2019 S/P total knee arthroplasty, left 10/18/2020 Smoker 08/22/2015 Started at age 14 and has smoked up to 1/2 a PPD, quit 12/2017 Thoracic arthritis 03/05/2022 Mild Vitamin D deficiency 01/25/2020 Previous Surgical History PAST SURGICAL HISTORY Procedure Laterality Date 48 HOUR PH STUDY 02/19/2023 Dr. Domínguez ARTHROSCOPY KNEE DIAGNOSTIC W/WO SYNOVIAL BX SPX Left ARTHRS KNE SURG W/MENISCECTOMY MED/LAT W/SHVG Left 12/01/2019 COLONOSCOPY 02/28/2009 COLONOSCOPY 02/04/2018 COLONOSCOPY 08/11/2019 one polyp, repeat 10 yrs COLONOSCOPY 12/10/2022 Hyperplastic rectal polyp CYSTOURETHROSCOPY 10/05/2015 EGD WITH BIOPSY(S) 02/05/2006 EGD WITH BIOPSY(S) 12/21/2014 EGD WITH BIOPSY(S) 03/29/2015 EGD WITH BIOPSY(S) 03/24/2018 Dr. Garcia reported as normal. Neg for Hpylori and celiac. EGD WITH BIOPSY(S) 12/10/2022 Mild nonspecific inflammation in stomach EGD WITH BIOPSY(S) 02/19/2023 small hiatal hernia; Dr. Domínguez EXC/DSTRJ LINGUAL TONSIL ANY METHOD SPX remote MANOMETRY ESOPHAGEAL 02/19/2023 Dr. Britt PAST SURGICAL HISTORY OF 10/05/2015 TOT anu srinivasan PAST SURGICAL HISTORY OF Left 05/03/2016 ulnar nerve decompression PER ORAL PYLOROMYOTOMY (POP) PROCEDURE (COMP 19005) 05/08/2023 Dr. Domínguez TOTAL KNEE REPLACEMENT Left 10/18/2020 Family History FAMILY HISTORY Problem Relation Age of Onset Cancer Mother Hysterectomy Alcohol/Drug Father Alcoholic other (Leukemia) Sister shortly after Heart Attack Brother x 2 Diabetes Brother Heart Maternal Grandmother Hearing Loss Maternal Grandmother Headache Maternal Grandmother Diabetes Maternal Grandmother Stroke Maternal Grandmother Heart Maternal Grandfather Diabetes Maternal Grandfather No Known Problems Paternal Grandmother No Known Problems Paternal Grandfather Coronary Artery Disease Son Hyperlipidemia Son Hypertension Son Hyperlipidemia Son No Known Problems Son Colon Cancer No Family History Patient Allergies ALLERGIES Allergen Reactions Ditropan [Oxybutyni* Other: See Comments Nausea,vomiting Benztropine Other: See Comments, Unknown Cogentin [Benztropi* Other: See Comments Blurred vision Depakote [Divalproe* GI Upset Flagyl [Metronidazo* GI Upset Nausea and vomiting Ibuprofen GI Upset Nexium [Esomeprazol* Unknown Oxybutynin Unknown Oxycodone GI Upset, Unknown Percocet [Oxycodone* Other: See Comments Nausea, RDZ, eye swelling Tylenol [Acetaminop* GI Upset diarrhea with high doses Current Medications Current Outpatient Medications on File Prior to Visit Medication Sig fluticasone (FLONASE) 50 mcg/actuation nasal spray Use 1 Center Sandwich in each nostril daily at bedtime. guaiFENesin (MUCINEX) 600 mg 12 hr tablet Take 1 tablet by mouth two times a day. plecanatide (TRULANCE) 3 mg tablet Take 1 tablet (3 mg) by mouth once daily. levothyroxine (SYNTHROID) 137 mcg tablet Take 1 tablet by mouth once daily. ergocalciferol 50,000 unit capsule (VITAMIN D2, DRISDOL) Take 1 capsule by mouth one time a week. cyanocobalamin (VITAMIN B-12) 1,000 mcg tab Take 1 tablet by mouth once daily. rosuvastatin (CRESTOR) 40 mg tablet Take 1 tablet by mouth daily at bedtime. gabapentin (NEURONTIN) 400 mg capsule Take 1 capsule by mouth daily at bedtime for 90 days. amitriptyline (ELAVIL) 25 mg tablet Take 1 tablet by mouth daily at bedtime. AMOXICILLIN, BULK, MISC FISH OIL-DHA-EPA ORAL Take by mouth. Daily blood sugar diagnostic (BLOOD GLUCOSE TEST) test strip Test blood sugar(s) 1 times daily. Dx: Other DM Code R73.09 Insulin: No Lancets lancets Test blood sugar(s) 1 times daily. Dx: Other DM Code R73.09 Insulin: No Fenofibrate (LOFIBRA) 54 mg tablet Take 1 tablet by mouth once daily. metFORMIN ER (GLUCOPHAGE XR) 500 mg 24 hr tablet Take 1 tablet by mouth daily with breakfast. albuterol HFA (PROVENTIL HFA, VENTOLIN HFA) 90 mcg/actuation inhaler Inhale 2 Puffs as instructed every 4 hours as needed for wheezing/shortness of breath. ezetimibe (ZETIA) 10 mg tablet Take 1 tablet by mouth once daily. rOPINIRole (REQUIP) 1 mg tablet Take one tab by mouth before bed. Food Supplement, Lactose-Free (PROMOTE, OSMOLITE, TWO FABIENNE, ENSURE PLUS, ENLIVE) liqd Take 237 mL by mouth three times daily with meals. topiramate (TOPAMAX) 100 mg tablet Take 1 tablet by mouth twice daily. rimegepant (NURTEC ODT) 75 mg disintegrating tablet Take 1 tablet by mouth once daily as needed. ARIPiprazole (ABILIFY) 15 mg tablet Take 15 mg by mouth once daily. pantoprazole DR (PROTONIX) 40 mg tablet Take 1 tablet by mouth twice daily. Take on empty stomach, 1/2 hr before meal. aspirin, enteric coated (ASPIRIN, ENTERIC COATED) 81 mg EC tablet Take 81 mg by mouth every other day. CPAP Mask fitting and 30 day download for autopap 10 -20 cm H2O & formal mask refitting for medical necessity & schedule with the RT, chin strap, head gear, humidity, heated tubing (SACHI), lifetime supplies. G47.33 JORDAN (Patient not taking: Reported on 10/20/2023) lactase (LACTAID) 3,000 unit tablet Take 1 tablet by mouth three times daily with meals. acetaminophen (TYLENOL ARTHRITIS ORAL) Take 650 mg by mouth every 8 hours as needed. COMPOUNDED PRESCRIPTION Wheeled rolator walker with nd breaks and seat, # 1, Dx:M19.071, Z91.071 DULoxetine (CYMBALTA) 30 mg capsule Take 1 capsule by mouth once daily. [facility] No current facility-administered medications on file prior to visit. Social History Social History Tobacco Use Smoking status: Some Days Packs/day: 0.50 Years: 44.00 Additional pack years: 0.00 Total pack years: 22.00 Types: Cigarettes Last attempt to quit: 01/07/2018 Years since quittin.8 Smokeless tobacco: Never Tobacco comments: used welbutrin Vaping Use Vaping Use: Never used Substance Use Topics Alcohol use: No Drug use: No Review of Symptoms REVIEW OF SYSTEMS SEE HPI EXAM: BP 124/78 Pulse 64 Resp 16 Wt 83 kg (183 lb) BMI 32.42 kg/m General Appearance: Well appearing, alert, in no acute distress, well-hydrated, well nourished.. Health Maintenance List Lung Cancer Screening due on 07/14/2024 Mammogram Screening due on 08/28/2024 Annual PCP Team Chronic Disease Visit due on 09/29/2024 Diabetes Screening due on 09/19/2026 Colorectal Cancer Screening due on 12/10/2027 Lipid Screening due on 09/19/2028 DTaP,Tdap,Td Vaccine(3 - Td or Tdap) due on 10/06/2033 Bone Density Screening Completed Influenza Vaccine Completed Advance Directive Discussion Completed RSV Vaccine Completed Hepatitis C Screening Completed HIV Screening Completed Shingrix Vaccine Completed Pneumococcal Vaccine: 65+ Completed Alpha-1 Antitrypsin Deficiency Screening Discontinued Spirometry Discontinued Pap Testing Discontinued Covid-19 Vaccine Discontinued ASSESSMENT/PLAN: 1. Encounter for medication management - ICD9: V58.69, ICD10: Z79.899 (primary diagnosis) -All medications reordered for pill packs via [facility]. 2. Irritable bowel syndrome with constipation - ICD9: 564.1, ICD10: K58.1 - TRULANCE 3 MG TABLET 3. Acquired hypothyroidism - ICD9: 244.9, ICD10: E03.9 - LEVOTHYROXINE 137 MCG TABLET 4. Vitamin D deficiency - ICD9: 268.9, ICD10: E55.9 - ERGOCALCIFEROL (VITAMIN D2) 1,250 MCG (50,000 UNIT) CAPSULE 5. Vitamin B 12 deficiency - ICD9: 266.2, ICD10: E53.8 - CYANOCOBALAMIN (VIT B-12) 1,000 MCG TABLET 6. Myofascial pain - ICD9: 729.1, ICD10: M79.18 - GABAPENTIN 400 MG CAPSULE 7. Prediabetes - ICD9: 790.29, ICD10: R73.03 - METFORMIN ER 500 MG TABLET,EXTENDED RELEASE 24 HR 8. Gastroesophageal reflux disease, unspecified whether esophagitis present - ICD9: 530.81, ICD10: K21.9 - PANTOPRAZOLE 40 MG TABLET,DELAYED RELEASE 9. Anxiety and depression - ICD9: 300.00, 311, ICD10: F41.9, F32.A - ARIPIPRAZOLE 15 MG TABLET - DULOXETINE 30 MG CAPSULE,DELAYED RELEASE 10. Mixed hyperlipidemia - ICD9: 272.2, ICD10: E78.2 - ROSUVASTATIN 40 MG TABLET - FENOFIBRATE 54 MG TABLET - EZETIMIBE 10 MG TABLET 11. Bipolar I disorder (HCC) - ICD9: 296.7, ICD10: F31.9 - ARIPIPRAZOLE 15 MG TABLET 12.Migraine without aura and without status migrainosus, not intractable - ICD9: 346.10, ICD10: G43.009 - AMITRIPTYLINE 25 MG TABLET - TOPIRAMATE 100 MG TABLET 13. RLS (restless legs syndrome) - ICD9: 333.94, ICD10: G25.81 - ROPINIROLE 1 MG TABLET Jackie Mccoy APRN.MARY ELLEN documented in this encounter [facility] 10-20-2023 Miscellaneous Notes Patient active MyChart. Patient notified via MyChart message. Betzaida Paris MA Left message with patient to return call. If patient returns call please let her know that she is on the correct antibiotic according to urine culture. If her symptoms or not improving she needs to follow-up with primary care documented in this encounter [facility] 10-20-2023 Note [facility] 10-20-2023 Note [facility] 10-20-2023 History of Present illness Narrative Kaleigh Dong PA-C Department of Orthopaedics [facility] [address] [facility] [address] Dept: [phone] Dept October 20, 2023 CHIEF COMPLAINT: Knee Pain and Established Patient of the Left Knee (S/P Left TKA 10/18/20) and Last seen 03/03/23 with BP left knee pain Ms. Chanda Haq is a 63 year old female who presents with left knee pain which has been bothering her for about the past year. She is status post left total knee arthroplasty in October [address] Grewal. She complains that the knee feels like it is clunking or slipping especially with the first few steps out of bed in the morning. She mainly gets lateral knee pain with day-to-day activities such as a walking or climbing stairs. She denies any swelling of the knee. No new recent injuries though she notes that she had 2 falls last winter which seem to have started the pain in the knee. She is not currently taking any type of an oral anti-inflammatory just Tylenol. She was given some quadricep strengthening exercises which she did not find to be beneficial. ASSESSMENT: M25.562, G89.29 Chronic pain of left knee (primary encounter diagnosis) Z96.652 S/P total knee arthroplasty, left PLAN: She has some mid flexion instability. We discussed getting her into a hinged knee brace to help with pain during activity, I suggested that she try an [id number] NSAIDs such as Motrin, Aleve or ibuprofen instead of Tylenol. We briefly discussed her surgical options (poly exchange). Ms. Chanda Haq was advised as to contrast therapies and/or to take analgesics/anti-inflammatories as needed and all contraindications were reviewed. OBJECTIVE: Ms. Chanda Haq is a pleasant 63 year old in no apparent distress. Gen:There were no vitals taken for this visit. nl development, obese, no deformities ENT: Normocephalic, normal hearing, moist mucosa CV: Pulses:Radial= 2+ and symmetric, capillary refill < 2 secs, no peripheral edema/varicosities Skin: no rash, bruising or lesions. Good turgor. Psych: cooperative and appropriate, alert and oriented x 3, good mood and affect. Musculoskeletal: KNEE EXAM: Left: Alignment: Neutral Range of motion is 0 degrees in extension and 120 degrees of flexion. Extension La degrees Pain with ROM: Yes, mid flexion instability. Effusion: None Tender to the palpation of Lateral joint line Pain with patellar compression: No Stability: Anterior/Posterior stable and Varus/Valgus stable Hip Exam: flexion to 100+ degrees, full extension, internal/external rotation adequate, and no pain with log roll Neurovascular Status: Sensation Intact, Moves foot and ankle up & down, and 2+ dorsalis pedis Imaging: See Epic. Supporting Subjective Information Below: Past Surgical History: PAST SURGICAL HISTORY Procedure Laterality Date 48 HOUR PH STUDY 02/19/2023 Dr. Domínguez ARTHROSCOPY KNEE DIAGNOSTIC W/WO SYNOVIAL BX SPX Left ARTHRS KNE SURG W/MENISCECTOMY MED/LAT W/SHVG Left 12/01/2019 COLONOSCOPY 02/28/2009 COLONOSCOPY 02/04/2018 COLONOSCOPY 08/11/2019 one polyp, repeat 10 yrs COLONOSCOPY 12/10/2022 Hyperplastic rectal polyp CYSTOURETHROSCOPY 10/05/2015 EGD WITH BIOPSY(S) 02/05/2006 EGD WITH BIOPSY(S) 12/21/2014 EGD WITH BIOPSY(S) 03/29/2015 EGD WITH BIOPSY(S) 03/24/2018 Dr. Garcia reported as normal. Neg for Hpylori and celiac. EGD WITH BIOPSY(S) 12/10/2022 Mild nonspecific inflammation in stomach EGD WITH BIOPSY(S) 02/19/2023 small hiatal hernia; Dr. Domínguez EXC/DSTRJ LINGUAL TONSIL ANY METHOD SPX remote MANOMETRY ESOPHAGEAL 02/19/2023 Dr. Britt PAST SURGICAL HISTORY OF 10/05/2015 TOT monarc sling PAST SURGICAL HISTORY OF Left 05/03/2016 ulnar nerve decompression PER ORAL PYLOROMYOTOMY (POP) PROCEDURE (COMP 84967) 05/08/2023 Dr. Domínguez TOTAL KNEE REPLACEMENT Left 10/18/2020 Medications: Current Outpatient Medications Medication Sig nitrofurantoin monohydrate and macrocrystal (MACROBID) 100 mg capsule Take 1 capsule by mouth two times a day for 5 days. fluticasone (FLONASE) 50 mcg/actuation nasal spray Use 1 Center Sandwich in each nostril daily at bedtime. guaiFENesin (MUCINEX) 600 mg 12 hr tablet Take 1 tablet by mouth two times a day. plecanatide (TRULANCE) 3 mg tablet Take 1 tablet (3 mg) by mouth once daily. levothyroxine (SYNTHROID) 137 mcg tablet Take 1 tablet by mouth once daily. ergocalciferol 50,000 unit capsule (VITAMIN D2, DRISDOL) Take 1 capsule by mouth one time a week. cyanocobalamin (VITAMIN B-12) 1,000 mcg tab Take 1 tablet by mouth once daily. rosuvastatin (CRESTOR) 40 mg tablet Take 1 tablet by mouth daily at bedtime. gabapentin (NEURONTIN) 400 mg capsule Take 1 capsule by mouth daily at bedtime for 90 days. amitriptyline (ELAVIL) 25 mg tablet Take 1 tablet by mouth daily at bedtime. AMOXICILLIN, BULK, MISC FISH OIL-DHA-EPA ORAL Take by mouth. Daily blood sugar diagnostic (BLOOD GLUCOSE TEST) test strip Test blood sugar(s) 1 times daily. Dx: Other DM Code R73.09 Insulin: No Lancets lancets Test blood sugar(s) 1 times daily. Dx: Other DM Code R73.09 Insulin: No Fenofibrate (LOFIBRA) 54 mg tablet Take 1 tablet by mouth once daily. metFORMIN ER (GLUCOPHAGE XR) 500 mg 24 hr tablet Take 1 tablet by mouth daily with breakfast. albuterol HFA (PROVENTIL HFA, VENTOLIN HFA) 90 mcg/actuation inhaler Inhale 2 Puffs as instructed every 4 hours as needed for wheezing/shortness of breath. ezetimibe (ZETIA) 10 mg tablet Take 1 tablet by mouth once daily. rOPINIRole (REQUIP) 1 mg tablet Take one tab by mouth before bed. Food Supplement, Lactose-Free (PROMOTE, OSMOLITE, TWO FABIENNE, ENSURE PLUS, ENLIVE) liqd Take 237 mL by mouth three times daily with meals. topiramate (TOPAMAX) 100 mg tablet Take 1 tablet by mouth twice daily. rimegepant (NURTEC ODT) 75 mg disintegrating tablet Take 1 tablet by mouth once daily as needed. ARIPiprazole (ABILIFY) 15 mg tablet Take 15 mg by mouth once daily. aspirin, enteric coated (ASPIRIN, ENTERIC COATED) 81 mg EC tablet Take 81 mg by mouth every other day. lactase (LACTAID) 3,000 unit tablet Take 1 tablet by mouth three times daily with meals. acetaminophen (TYLENOL ARTHRITIS ORAL) Take 650 mg by mouth every 8 hours as needed. DULoxetine (CYMBALTA) 30 mg capsule Take 1 capsule by mouth once daily. [facility] pantoprazole DR (PROTONIX) 40 mg tablet Take 1 tablet by mouth twice daily. Take on empty stomach, 1/2 hr before meal. CPAP Mask fitting and 30 day download for autopap 10 -20 cm H2O & formal mask refitting for medical necessity & schedule with the RT, chin strap, head gear, humidity, heated tubing (SACHI), lifetime supplies. G47.33 JORDAN (Patient not taking: Reported on 10/20/2023) COMPOUNDED PRESCRIPTION Wheeled rolator walker with ahnd breaks and seat, # 1, Dx:M19.071, Z91.071 No current facility-administered medications for this visit. Allergies: Ditropan [Oxybutynin Chloride], Benztropine, Cogentin [Benztropine Mesylate], Depakote [Divalproex Sodium], Flagyl [Metronidazole Hcl], Ibuprofen, Nexium [Esomeprazole Magnesium], Oxybutynin, Oxycodone, Percocet [Oxycodone-Acetaminophen], and Tylenol [Acetaminophen] ROS: General (negative for fatigue, malaise, weight loss/gain) HEENT (negative for headache, earache, recent vision changes, sinus pain, sore throat) Respiratory (no recent shortness of breath, hemoptysis) CV (negative for chest tightness, palpitations) Musculoskeletal (see HPI) Psych (no depression, anxiety) This note was partially generated using [employer] voice recognition system, and there may be some incorrect words, spellings, and punctuation that were not noted in checking the note before saving. Kaleigh Dong PA-C PT ASSESSMENT - CASTING ROOM Chanda presents for Application of brace. Applied Miguel Dumont Hinge Knee to Left knee Patient has been instructed in Care and proper application of brace. Paperwork signed electronically for Miguel Dumont. Gricelda Cotto, RN Patient presents with: Left Knee - Knee Pain, Established Patient: S/P Left TKA 10/18/20 Last seen 03/03/23 with BP left knee pain AMB ROOMING INTAKE FLOWSHEET DATA Pain Pain Level: 6 Pain Location: Knee-Left Description: Aching, Dull, Stiffness Duration Amount of Time: 4 Duration Units: Months Frequency: Intermittent Intervention/Comfort measure: Cold, Heat, Pillow support Patient states she is continuing to have pain in her left knee. Patient states she was told her hardware was loose at her visit in February. She did the exercises he gave her but has not helped. Taking Tylenol and topical gel and only helps take the edge off. Patient using a quad cane or rollator to ambulate. New x-rays done today. Patient states she is not feeling well due to having a sinus infection and UTI. documented in this encounter [facility] 10-20-2023 Note [facility] 10-20-2023 Note [facility] 10-19-2023 Note [facility] 10-19-2023 History of Present illness Narrative CC: Patient presents with: bladder spasms and pressure: Started last night HPI Chanda Haq is a 63 year old female who presents with complaint of possible UTI. These symptoms have been present for 1 days. Associated symptoms: pressure and spasms Denies: burning, frequency, chills, and sweats Treatments: nothing The ROS was otherwise negative. PMH, Medications, labs, allergies, and recent past visits with PCP were reviewed and updated as able. PHYSICAL EXAM: There were no vitals taken for this visit. General: Well appearing and alert CV: Regular rate and rhythm without obvious murmur Lungs: clear to auscultation bilaterally Back: straight and symmetric Abdomen: soft, nontender, nondistended PAST MEDICAL HISTORY Diagnosis Date Acquired hypothyroidism 08/22/2015 ACUTE GASTRITIS W/O HEMORRHAGE 02/05/2006 Advance directive discussed with patient 04/02/2023 Discussed 03/2023: Up to date Anxiety and depression 10/05/2020 Arthritis 05/18/2020 Arthritis of lumbar spine 03/05/2022 Mod Arthritis of right foot 09/02/2018 At high risk for falls 09/02/2018 Backache, unspecified 01/11/2013 Bilateral carotid artery stenosis 09/25/202009/2020 20-40% bilaterally Bipolar I disorder (HCC) 12/20/2005 Seeds Stinger at [facility] Cervical disc disorder with radiculopathy 09/27/2021 Cervical radiculopathy 09/19/2021 Cervical spondylosis 09/19/2021 Seeing pain management Cervical spondylosis without myelopathy 09/27/2021 Cervical stenosis of spinal canal 09/19/2021 Chronic pain of left knee 06/19/2019 Class 1 obesity due to excess calories without serious comorbidity with body mass index (BMI) of 33.0 to 33.9 in adult 03/03/2018 Current use of proton pump inhibitor 03/03/2018 Diaphragmatic hernia without mention of obstruction or gangrene 02/05/2006 Elevated hemoglobin A1c 06/29/2018 Encounter for screening mammogram for breast cancer 03/05/2019 Ex-smoker 08/22/2015 Started at age 14 and has smoked up to 1/2 a PPD, quit 12/2017 External hemorrhoids without mention of complication Gastroesophageal reflux disease with esophagitis 08/22/2015 Gastroparesis 01/30/2023 Hearing loss Hearing aids in both ears. Hiatal hernia 02/19/2023 small History of transient ischemic attack (TIA) 11/05/2019 Incontinence 02/20/[address] Jordan Irritable bowel syndrome with constipation 03/03/2018 Lactose intolerance 03/05/2019 Living will on file at physician's office 04/02/2023 DPA: John () Lung nodules 12/11/2017 CT 12/11/[address] 05/2018 stable needs repeat in 2 yrs Medicare annual wellness visit, subsequent 03/03/2018 Medicare Part B: 06/17/2001 last done: 03/05/2019 Migraine without aura and without status migrainosus, not intractable 05/22/2016 Mixed hyperlipidemia 08/22/2015 JORDAN (obstructive sleep apnea) 09/02/2018 DME DASCO Osteopenia of lumbar spine 11/27/2020 Borderline on DXA 11/2020 Other constipation 07/21/2019 Overactive bladder 05/30/2015 Personal history of fibromyalgia 06/17/2023 Patient mentions this at appt on 06/17/2023 Primary insomnia 07/30/2018 Primary osteoarthritis of left knee 11/05/2019 RLS (restless legs syndrome) 06/04/2019 S/P total knee arthroplasty, left 10/18/2020 Smoker 08/22/2015 Started at age 14 and has smoked up to 1/2 a PPD, quit 12/2017 Thoracic arthritis 03/05/2022 Mild Vitamin D deficiency 01/25/2020 PAST SURGICAL HISTORY Procedure Laterality Date 48 HOUR PH STUDY 02/19/2023 Dr. Domínguez ARTHROSCOPY KNEE DIAGNOSTIC W/WO SYNOVIAL BX SPX Left ARTHRS KNE SURG W/MENISCECTOMY MED/LAT W/SHVG Left 12/01/2019 COLONOSCOPY 02/28/2009 COLONOSCOPY 02/04/2018 COLONOSCOPY 08/11/2019 one polyp, repeat 10 yrs COLONOSCOPY 12/10/2022 Hyperplastic rectal polyp CYSTOURETHROSCOPY 10/05/2015 EGD WITH BIOPSY(S) 02/05/2006 EGD WITH BIOPSY(S) 12/21/2014 EGD WITH BIOPSY(S) 03/29/2015 EGD WITH BIOPSY(S) 03/24/2018 Dr. Garcia reported as normal. Neg for Hpylori and celiac. EGD WITH BIOPSY(S) 12/10/2022 Mild nonspecific inflammation in stomach EGD WITH BIOPSY(S) 02/19/2023 small hiatal hernia; Dr. Domínguez EXC/DSTRJ LINGUAL TONSIL ANY METHOD SPX remote MANOMETRY ESOPHAGEAL 02/19/2023 Dr. Britt PAST SURGICAL HISTORY OF 10/05/2015 TOT monarc sling PAST SURGICAL HISTORY OF Left 05/03/2016 ulnar nerve decompression PER ORAL PYLOROMYOTOMY (POP) PROCEDURE (COMP 17732) 05/08/2023 Dr. Domínguez TOTAL KNEE REPLACEMENT Left 10/18/2020 ALLERGIES Ditropan [Oxybutynin Chloride], Benztropine, Cogentin [Benztropine Mesylate], Depakote [Divalproex Sodium], Flagyl [Metronidazole Hcl], Ibuprofen, Nexium [Esomeprazole Magnesium], Oxybutynin, Oxycodone, Percocet [Oxycodone-Acetaminophen], and Tylenol [Acetaminophen] MEDICATIONS fluticasone (FLONASE) 50 mcg/actuation nasal spray Use 1 Center Sandwich in each nostril daily at bedtime. guaiFENesin (MUCINEX) 600 mg 12 hr tablet Take 1 tablet by mouth two times a day. plecanatide (TRULANCE) 3 mg tablet Take 1 tablet (3 mg) by mouth once daily. levothyroxine (SYNTHROID) 137 mcg tablet Take 1 tablet by mouth once daily. ergocalciferol 50,000 unit capsule (VITAMIN D2, DRISDOL) Take 1 capsule by mouth one time a week. cyanocobalamin (VITAMIN B-12) 1,000 mcg tab Take 1 tablet by mouth once daily. rosuvastatin (CRESTOR) 40 mg tablet Take 1 tablet by mouth daily at bedtime. gabapentin (NEURONTIN) 400 mg capsule Take 1 capsule by mouth daily at bedtime for 90 days. amitriptyline (ELAVIL) 25 mg tablet Take 1 tablet by mouth daily at bedtime. AMOXICILLIN, BULK, MISC FISH OIL-DHA-EPA ORAL Take by mouth. Daily blood sugar diagnostic (BLOOD GLUCOSE TEST) test strip Test blood sugar(s) 1 times daily. Dx: Other DM Code R73.09 Insulin: No Lancets lancets Test blood sugar(s) 1 times daily. Dx: Other DM Code R73.09 Insulin: No Fenofibrate (LOFIBRA) 54 mg tablet Take 1 tablet by mouth once daily. metFORMIN ER (GLUCOPHAGE XR) 500 mg 24 hr tablet Take 1 tablet by mouth daily with breakfast. albuterol HFA (PROVENTIL HFA, VENTOLIN HFA) 90 mcg/actuation inhaler Inhale 2 Puffs as instructed every 4 hours as needed for wheezing/shortness of breath. ezetimibe (ZETIA) 10 mg tablet Take 1 tablet by mouth once daily. rOPINIRole (REQUIP) 1 mg tablet Take one tab by mouth before bed. Food Supplement, Lactose-Free (PROMOTE, OSMOLITE, TWO FABIENNE, ENSURE PLUS, ENLIVE) liqd Take 237 mL by mouth three times daily with meals. topiramate (TOPAMAX) 100 mg tablet Take 1 tablet by mouth twice daily. rimegepant (NURTEC ODT) 75 mg disintegrating tablet Take 1 tablet by mouth once daily as needed. ARIPiprazole (ABILIFY) 15 mg tablet Take 15 mg by mouth once daily. aspirin, enteric coated (ASPIRIN, ENTERIC COATED) 81 mg EC tablet Take 81 mg by mouth every other day. CPAP Mask fitting and 30 day download for autopap 10 -20 cm H2O & formal mask refitting for medical necessity & schedule with the RT, chin strap, head gear, humidity, heated tubing (SACHI), lifetime supplies. G47.33 JORDAN lactase (LACTAID) 3,000 unit tablet Take 1 tablet by mouth three times daily with meals. acetaminophen (TYLENOL ARTHRITIS ORAL) Take 650 mg by mouth every 8 hours as needed. COMPOUNDED PRESCRIPTION Wheeled rolator walker with ahnd breaks and seat, # 1, Dx:M19.071, Z91.071 DULoxetine (CYMBALTA) 30 mg capsule Take 1 capsule by mouth once daily. [facility] pantoprazole DR (PROTONIX) 40 mg tablet Take 1 tablet by mouth twice daily. Take on empty stomach, 1/2 hr before meal. FAMILY HISTORY Problem Relation Age of Onset Cancer Mother Hysterectomy Alcohol/Drug Father Alcoholic other (Leukemia) Sister shortly after Heart Attack Brother x 2 Diabetes Brother Heart Maternal Grandmother Hearing Loss Maternal Grandmother Headache Maternal Grandmother Diabetes Maternal Grandmother Stroke Maternal Grandmother Heart Maternal Grandfather Diabetes Maternal Grandfather No Known Problems Paternal Grandmother No Known Problems Paternal Grandfather Coronary Artery Disease Son Hyperlipidemia Son Hypertension Son Hyperlipidemia Son No Known Problems Son Colon Cancer No Family History Social History Tobacco Use Smoking status: Some Days Packs/day: 0.50 Years: 44.00 Additional pack years: 0.00 Total pack years: 22.00 Types: Cigarettes Last attempt to quit: 01/07/2018 Years since quittin.7 Smokeless tobacco: Never Tobacco comments: used welbutrin Vaping Use Vaping Use: Never used Substance Use Topics Alcohol use: No Drug use: No ASSESSMENT/PLAN: 1. Bladder spasms - ICD9: 596.89, ICD10: N32.89 (primary diagnosis) - UA DIP, URINE (POC) - URINE CULTURE 2. Recurrent UTI (urinary tract infection) - ICD9: 599.0, ICD10: N39.0 - NITROFURANTOIN MONOHYDRATE & MACROCRYSTAL 100 MG ORAL CAP Prescription instructions reviewed with patient as applicable. Potential red flag symptoms discussed with the patient. Reviewed appropriate action plan to take if red flag symptoms occur. Patient agreeable to treatment plan. Patient will monitor that low-grade fever if it gets worse she will go to the ER Noy Reis APRN.DATABASE SECURITY EXPERT documented in this encounter [facility] 10-18-2023 Note [facility] 10-18-2023 History of Present illness Narrative Telemedicine Visit - Distance Health Virtual Visit Note Patient seen on [facility] Video Visit platform. Location of patient: [place] History of Present Illness Chanda Haq is a 63 year old year old female who presents for the past 5 days with symptoms that are:constant. Symptoms include: Positive for PND, Face pain/pressure, and Headache, Negative for Fever, Chills/Sweats, Cough, Hemoptysis, SOB, GANNON, Wheezing, Fatigue, Nausea, Emesis, and Diarrhea I have communicated my name and active licensure. The patient's identity and physical location were verified at the time of this visit. Either the patient or their legal major account representative has been informed of the risks and benefits of -- and alternatives to -- treatment through a remote evaluation and consents to proceed with the evaluation remotely. Oral intake: eating and drinking Tobacco use: No Second hand smoke exposure: No Recent exposure to strep:No Sick contacts: no Recent travel: no OTC meds/remedies that patient has tried: Bellabox sinus meds PAST MEDICAL HISTORY Diagnosis Date Acquired hypothyroidism 08/22/2015 ACUTE GASTRITIS W/O HEMORRHAGE 02/05/2006 Advance directive discussed with patient 04/02/2023 Discussed 03/2023: Up to date Anxiety and depression 10/05/2020 Arthritis 05/18/2020 Arthritis of lumbar spine 03/05/2022 Mod Arthritis of right foot 09/02/2018 At high risk for falls 09/02/2018 Backache, unspecified 01/11/2013 Bilateral carotid artery stenosis 09/25/202009/2020 20-40% bilaterally Bipolar I disorder (HCC) 12/20/2005 Seeds Stinger at [facility] Cervical disc disorder with radiculopathy 09/27/2021 Cervical radiculopathy 09/19/2021 Cervical spondylosis 09/19/2021 Seeing pain management Cervical spondylosis without myelopathy 09/27/2021 Cervical stenosis of spinal canal 09/19/2021 Chronic pain of left knee 06/19/2019 Class 1 obesity due to excess calories without serious comorbidity with body mass index (BMI) of 33.0 to 33.9 in adult 03/03/2018 Current use of proton pump inhibitor 03/03/2018 Diaphragmatic hernia without mention of obstruction or gangrene 02/05/2006 Elevated hemoglobin A1c 06/29/2018 Encounter for screening mammogram for breast cancer 03/05/2019 Ex-smoker 08/22/2015 Started at age 14 and has smoked up to 1/2 a PPD, quit 12/2017 External hemorrhoids without mention of complication Gastroesophageal reflux disease with esophagitis 08/22/2015 Gastroparesis 01/30/2023 Hearing loss Hearing aids in both ears. Hiatal hernia 02/19/2023 small History of transient ischemic attack (TIA) 11/05/2019 Incontinence 02/20/[address] Jordan Irritable bowel syndrome with constipation 03/03/2018 Lactose intolerance 03/05/2019 Living will on file at physician's office 04/02/2023 DPA: John () Lung nodules 12/11/2017 CT 12/11/[address] 05/2018 stable needs repeat in 2 yrs Medicare annual wellness visit, subsequent 03/03/2018 Medicare Part B: 06/17/2001 last done: 03/05/2019 Migraine without aura and without status migrainosus, not intractable 05/22/2016 Mixed hyperlipidemia 08/22/2015 JORDAN (obstructive sleep apnea) 09/02/2018 DME DASCO Osteopenia of lumbar spine 11/27/2020 Borderline on DXA 11/2020 Other constipation 07/21/2019 Overactive bladder 05/30/2015 Personal history of fibromyalgia 06/17/2023 Patient mentions this at appt on 06/17/2023 Primary insomnia 07/30/2018 Primary osteoarthritis of left knee 11/05/2019 RLS (restless legs syndrome) 06/04/2019 S/P total knee arthroplasty, left 10/18/2020 Smoker 08/22/2015 Started at age 14 and has smoked up to 1/2 a PPD, quit 12/2017 Thoracic arthritis 03/05/2022 Mild Vitamin D deficiency 01/25/2020 PAST SURGICAL HISTORY Procedure Laterality Date 48 HOUR PH STUDY 02/19/2023 Dr. Domínguez ARTHROSCOPY KNEE DIAGNOSTIC W/WO SYNOVIAL BX SPX Left ARTHRS KNE SURG W/MENISCECTOMY MED/LAT W/SHVG Left 12/01/2019 COLONOSCOPY 02/28/2009 COLONOSCOPY 02/04/2018 COLONOSCOPY 08/11/2019 one polyp, repeat 10 yrs COLONOSCOPY 12/10/2022 Hyperplastic rectal polyp CYSTOURETHROSCOPY 10/05/2015 EGD WITH BIOPSY(S) 02/05/2006 EGD WITH BIOPSY(S) 12/21/2014 EGD WITH BIOPSY(S) 03/29/2015 EGD WITH BIOPSY(S) 03/24/2018 Dr. Garcia reported as normal. Neg for Hpylori and celiac. EGD WITH BIOPSY(S) 12/10/2022 Mild nonspecific inflammation in stomach EGD WITH BIOPSY(S) 02/19/2023 small hiatal hernia; Dr. Domínguez EXC/DSTRJ LINGUAL TONSIL ANY METHOD SPX remote MANOMETRY ESOPHAGEAL 02/19/2023 Dr. Britt PAST SURGICAL HISTORY OF 10/05/2015 TOT monarc sling PAST SURGICAL HISTORY OF Left 05/03/2016 ulnar nerve decompression PER ORAL PYLOROMYOTOMY (POP) PROCEDURE (COMP 18919) 05/08/2023 Dr. Domínguez TOTAL KNEE REPLACEMENT Left 10/18/2020 FAMILY HISTORY Problem Relation Age of Onset Cancer Mother Hysterectomy Alcohol/Drug Father Alcoholic other (Leukemia) Sister shortly after Heart Attack Brother x 2 Diabetes Brother Heart Maternal Grandmother Hearing Loss Maternal Grandmother Headache Maternal Grandmother Diabetes Maternal Grandmother Stroke Maternal Grandmother Heart Maternal Grandfather Diabetes Maternal Grandfather No Known Problems Paternal Grandmother No Known Problems Paternal Grandfather Coronary Artery Disease Son Hyperlipidemia Son Hypertension Son Hyperlipidemia Son No Known Problems Son Colon Cancer No Family History Social History Tobacco Use Smoking status: Some Days Packs/day: 0.50 Years: 44.00 Additional pack years: 0.00 Total pack years: 22.00 Types: Cigarettes Last attempt to quit: 01/07/2018 Years since quittin.7 Smokeless tobacco: Never Tobacco comments: used welbutrin Vaping Use Vaping Use: Never used Substance Use Topics Alcohol use: No Drug use: No Current Outpatient Medications Medication Sig plecanatide (TRULANCE) 3 mg tablet Take 1 tablet (3 mg) by mouth once daily. levothyroxine (SYNTHROID) 137 mcg tablet Take 1 tablet by mouth once daily. ergocalciferol 50,000 unit capsule (VITAMIN D2, DRISDOL) Take 1 capsule by mouth one time a week. cyanocobalamin (VITAMIN B-12) 1,000 mcg tab Take 1 tablet by mouth once daily. rosuvastatin (CRESTOR) 40 mg tablet Take 1 tablet by mouth daily at bedtime. gabapentin (NEURONTIN) 400 mg capsule Take 1 capsule by mouth daily at bedtime for 90 days. amitriptyline (ELAVIL) 25 mg tablet Take 1 tablet by mouth daily at bedtime. AMOXICILLIN, BULK, MISC FISH OIL-DHA-EPA ORAL Take by mouth. Daily blood sugar diagnostic (BLOOD GLUCOSE TEST) test strip Test blood sugar(s) 1 times daily. Dx: Other DM Code R73.09 Insulin: No Lancets lancets Test blood sugar(s) 1 times daily. Dx: Other DM Code R73.09 Insulin: No Fenofibrate (LOFIBRA) 54 mg tablet Take 1 tablet by mouth once daily. metFORMIN ER (GLUCOPHAGE XR) 500 mg 24 hr tablet Take 1 tablet by mouth daily with breakfast. albuterol HFA (PROVENTIL HFA, VENTOLIN HFA) 90 mcg/actuation inhaler Inhale 2 Puffs as instructed every 4 hours as needed for wheezing/shortness of breath. ezetimibe (ZETIA) 10 mg tablet Take 1 tablet by mouth once daily. rOPINIRole (REQUIP) 1 mg tablet Take one tab by mouth before bed. Food Supplement, Lactose-Free (PROMOTE, OSMOLITE, TWO FABIENNE, ENSURE PLUS, ENLIVE) liqd Take 237 mL by mouth three times daily with meals. topiramate (TOPAMAX) 100 mg tablet Take 1 tablet by mouth twice daily. rimegepant (NURTEC ODT) 75 mg disintegrating tablet Take 1 tablet by mouth once daily as needed. ARIPiprazole (ABILIFY) 15 mg tablet Take 15 mg by mouth once daily. pantoprazole DR (PROTONIX) 40 mg tablet Take 1 tablet by mouth twice daily. Take on empty stomach, 1/2 hr before meal. aspirin, enteric coated (ASPIRIN, ENTERIC COATED) 81 mg EC tablet Take 81 mg by mouth every other day. CPAP Mask fitting and 30 day download for autopap 10 -20 cm H2O & formal mask refitting for medical necessity & schedule with the RT, chin strap, head gear, humidity, heated tubing (SACHI), lifetime supplies. G47.33 JORDAN lactase (LACTAID) 3,000 unit tablet Take 1 tablet by mouth three times daily with meals. acetaminophen (TYLENOL ARTHRITIS ORAL) Take 650 mg by mouth every 8 hours as needed. COMPOUNDED PRESCRIPTION Wheeled rolator walker with ahnd breaks and seat, # 1, Dx:M19.071, Z91.071 DULoxetine (CYMBALTA) 30 mg capsule Take 1 capsule by mouth once daily. [facility] No current facility-administered medications for this visit. ALLERGIES Allergen Reactions Ditropan [Oxybutyni* Other: See Comments Nausea,vomiting Benztropine Other: See Comments, Unknown Cogentin [Benztropi* Other: See Comments Blurred vision Depakote [Divalproe* GI Upset Flagyl [Metronidazo* GI Upset Nausea and vomiting Ibuprofen GI Upset Nexium [Esomeprazol* Unknown Oxybutynin Unknown Oxycodone GI Upset, Unknown Percocet [Oxycodone* Other: See Comments Nausea, RDZ, eye swelling Tylenol [Acetaminop* GI Upset diarrhea with high doses Video Exam (Examination performed via Video enabled technology) General appearance: Alert, oriented, pleasant, in NAD :Yes Ill appearing :No Lethargic appearing :No Eyes: Sclera clear :Yes Conjunctiva without erythema :Yes Ears: Tragus / outer ear tenderness by self palpation :No Frontal sinus tenderness by self palpation;Yes Maxillary sinus tenderness by self palpation :Yes Tender cervical adenopathy by self palpation :Yes Respiratory distress :No Coughing noted :No Audible wheezing noted :No ASSESSMENT/PLAN: 1. Viral syndrome - ICD9: 079.99, ICD10: B34.9 - Discussed viral etiology and rationale for treatment. - Symptomatic treatment with prn analgesia - Supportive care with fluids and rest - The patient may also use mucinex as needed and Flonase at bedtime - Follow up in 2-3 days if symptoms persist or sooner if worsening of symptoms - FLUTICASONE PROPIONATE 50 MCG/ACTUATION NASAL SPRAY,SUSPENSION - GUAIFENESIN ER 600 MG TABLET, EXTENDED RELEASE 12 HR -Tylenol (generic acetaminophen) 500 mg-2 tabs every 8 hrs. as needed for fever and aches -Sudafed (generic is fine), behind the counter, 2x30 mg tabs twice daily as needed for congestion -Mucinex (generic is fine) 1200 mg twice daily to help with cough and to thin out mucus -[email or web address] -resources/[email or web address] This link shares information about when antibiotics may help and when they may not. - Red flags discussed for need for in person care - All questions answered Ashwini Ruby APRN.CNP If you let us know who your primary care provider is, we will send them a notification of today s visit through our electronic medical records system. Since not all providers have access to our notifications, we strongly encourage you to share the following record of today s visit with your primary care provider at your next visit. This will help in providing you the best care. If you do not have an established Primary Care physician and would like to continue care with a [facility] Virtual Primary Care physician, please ask your provider to place a Establish Primary Care order. Use SpreadShout to manage your care, wherever you are, 09/06, on your mobile device or computer. SpreadShout connects you to [employer] so you can access all your health information in one place and also schedule and request virtual appointments with primary care providers. documented in this encounter [facility] 10-15-2023 Miscellaneous Notes Noted. Spoke with patient and thinks her insurance will cover. She wanted a f2f appointment. This is scheduled. Explained the pre packaged prescription. She will do that if [facility] will not. [place]ia Reis MA Let patient know in order to get HHC for [facility] she will need seen F2F. Also ask her if she is leaving her house any. If she is other then for doctors appts she may not qualify for [facility] services. See if interested in prepackaged meds from [employer] or [facility] in [place]? Patient calling asking for skilled nurse to do her medication box for 2 weeks at a time. Patient used to fill herself and is to complicated with all the medications she is taking, she is overwhelmed and making mistakes. Patient said she has home health aide from [facility] but they are non skilled. Please advise documented in this encounter [facility] 09-29-2023 Note [facility] 09-29-2023 History of Present illness Narrative Chanda Haq is a 63 year old female here for a Medicare wellness visit. Medicare Health Risk Assessment General Health Fair Exercise: Minutes/Day 30 min Exercise: Days/Week 3 days Alcohol: Daily Use Never Alcohol: Drinks/Day Patient does not drink Alcohol: 6 or more drinks Never Feel off balance Yes Concerns: Teeth/Dentures Yes, dentures do not fit properly Concerns: Sexual function No Troubled by feelings Anxious; Stressed; Irritable Frequency: Eating healthy diet Several days ADLs requiring help None of the above Safety precautions in home/vehicle Yes Smoke, vape, chews tobacco No Difficulty hearing Yes, I wear a hearing aid Difficulty seeing Yes, sees eye doctor Current Providers Specialists: I have reviewed specialist-related care of the patient in the medical record. Medical/Family history review Reviewed and updated problem list, medical/surgical/family/social history, medications, and allergies. Opioid use review Opioid Medications (last 90 days) Some values may be hidden. Unless noted otherwise, only the newest values recorded on each date are displayed. Opioid Medications No data to display. Depression screening Depression Screening PHQ-2 Score PHQ-9 Score ALISSA-2 Total Score ALISSA-7 Total Score 09/22/2023 2 7 1 2 Depression screening tool completed and reviewed. Based on score and interview, patient is not at risk for depression. Screening tool discussed with patient, and I recommended no further intervention at this time. Functional Observation Was the patient's timed Up & Go test unsteady or ? 12 seconds? No Advance Care Planning Surrogate decision maker and/or advance care plan documented Measurements BP 120/78 Pulse 80 Resp 16 Wt 184 lb (83.5kg) Additional screenings: No results found. Assessment/Plan Medicare annual wellness visit, subsequent (Z00.00) - Counseled on healthy diet and regular exercise - Fall avoidance information provided - Personalized prevention plan provided - Discussed need for and benefit of weight loss. BMI 32.59 kg/(m^2) Chief Complaint Patient presents with: Medicare Wellness Exam HPI Chanda Haq is a 63 year old female who presents here today for Above Complaints.. Patient presents for annual wellness. Patient reports her health is fair and she has many issues due to her cervical spondylosis. Patient sees pain management for her neck and has been offered surgery but declined. l Past medical history, appointments, medications, allergies reviewed. Previous Medical History PAST MEDICAL HISTORY Diagnosis Date Acquired hypothyroidism 08/22/2015 ACUTE GASTRITIS W/O HEMORRHAGE 02/05/2006 Advance directive discussed with patient 04/02/2023 Discussed 03/2023: Up to date Anxiety and depression 10/05/2020 Arthritis 05/18/2020 Arthritis of lumbar spine 03/05/2022 Mod Arthritis of right foot 09/02/2018 At high risk for falls 09/02/2018 Backache, unspecified 01/11/2013 Bilateral carotid artery stenosis 09/25/202009/2020 20-40% bilaterally Bipolar I disorder (HCC) 12/20/2005 [facility] Cervical disc disorder with radiculopathy 09/27/2021 Cervical radiculopathy 09/19/2021 Cervical spondylosis 09/19/2021 Seeing pain management Cervical spondylosis without myelopathy 09/27/2021 Cervical stenosis of spinal canal 09/19/2021 Chronic pain of left knee 06/19/2019 Class 1 obesity due to excess calories without serious comorbidity with body mass index (BMI) of 33.0 to 33.9 in adult 03/03/2018 Current use of proton pump inhibitor 03/03/2018 Diaphragmatic hernia without mention of obstruction or gangrene 02/05/2006 Elevated hemoglobin A1c 06/29/2018 Encounter for screening mammogram for breast cancer 03/05/2019 Ex-smoker 08/22/2015 Started at age 14 and has smoked up to 1/2 a PPD, quit 12/2017 External hemorrhoids without mention of complication Gastroesophageal reflux disease with esophagitis 08/22/2015 Gastroparesis 01/30/2023 Hearing loss Hearing aids in both ears. Hiatal hernia 02/19/2023 small History of transient ischemic attack (TIA) 11/05/2019 Incontinence 02/20/[address] Jordan Irritable bowel syndrome with constipation 03/03/2018 Lactose intolerance 03/05/2019 Living will on file at physician's office 04/02/2023 DPA: John () Lung nodules 12/11/2017 CT 12/11/[address] 05/2018 stable needs repeat in 2 yrs Medicare annual wellness visit, subsequent 03/03/2018 Medicare Part B: 06/17/2001 last done: 03/05/2019 Migraine without aura and without status migrainosus, not intractable 05/22/2016 Mixed hyperlipidemia 08/22/2015 JORDAN (obstructive sleep apnea) 09/02/2018 DME DASCO Osteopenia of lumbar spine 11/27/2020 Borderline on DXA 11/2020 Other constipation 07/21/2019 Overactive bladder 05/30/2015 Personal history of fibromyalgia 06/17/2023 Patient mentions this at appt on 06/17/2023 Primary insomnia 07/30/2018 Primary osteoarthritis of left knee 11/05/2019 RLS (restless legs syndrome) 06/04/2019 S/P total knee arthroplasty, left 10/18/2020 Smoker 08/22/2015 Started at age 14 and has smoked up to 1/2 a PPD, quit 12/2017 Thoracic arthritis 03/05/2022 Mild Vitamin D deficiency 01/25/2020 Previous Surgical History PAST SURGICAL HISTORY Procedure Laterality Date 48 HOUR PH STUDY 02/19/2023 Dr. Domínguez ARTHROSCOPY KNEE DIAGNOSTIC W/WO SYNOVIAL BX SPX Left ARTHRS KNE SURG W/MENISCECTOMY MED/LAT W/SHVG Left 12/01/2019 COLONOSCOPY 02/28/2009 COLONOSCOPY 02/04/2018 COLONOSCOPY 08/11/2019 one polyp, repeat 10 yrs COLONOSCOPY 12/10/2022 Hyperplastic rectal polyp CYSTOURETHROSCOPY 10/05/2015 EGD WITH BIOPSY(S) 02/05/2006 EGD WITH BIOPSY(S) 12/21/2014 EGD WITH BIOPSY(S) 03/29/2015 EGD WITH BIOPSY(S) 03/24/2018 Dr. Garcia reported as normal. Neg for Hpylori and celiac. EGD WITH BIOPSY(S) 12/10/2022 Mild nonspecific inflammation in stomach EGD WITH BIOPSY(S) 02/19/2023 small hiatal hernia; Dr. Domínguez EXC/DSTRJ LINGUAL TONSIL ANY METHOD SPX remote MANOMETRY ESOPHAGEAL 02/19/2023 Dr. Britt PAST SURGICAL HISTORY OF 10/05/2015 TOT monarc sling PAST SURGICAL HISTORY OF Left 05/03/2016 ulnar nerve decompression PER ORAL PYLOROMYOTOMY (POP) PROCEDURE (COMP 56110) 05/08/2023 Dr. Domínguez TOTAL KNEE REPLACEMENT Left 10/18/2020 Family History FAMILY HISTORY Problem Relation Age of Onset Cancer Mother Hysterectomy Alcohol/Drug Father Alcoholic other (Leukemia) Sister shortly after Heart Attack Brother x 2 Diabetes Brother Heart Maternal Grandmother Hearing Loss Maternal Grandmother Headache Maternal Grandmother Diabetes Maternal Grandmother Stroke Maternal Grandmother Heart Maternal Grandfather Diabetes Maternal Grandfather No Known Problems Paternal Grandmother No Known Problems Paternal Grandfather Coronary Artery Disease Son Hyperlipidemia Son Hypertension Son Hyperlipidemia Son No Known Problems Son Colon Cancer No Family History Patient Allergies ALLERGIES Allergen Reactions Ditropan [Oxybutyni* Other: See Comments Nausea,vomiting Benztropine Other: See Comments, Unknown Cogentin [Benztropi* Other: See Comments Blurred vision Depakote [Divalproe* GI Upset Flagyl [Metronidazo* GI Upset Nausea and vomiting Ibuprofen GI Upset Nexium [Esomeprazol* Unknown Oxybutynin Unknown Oxycodone GI Upset, Unknown Percocet [Oxycodone* Other: See Comments Nausea, RDZ, eye swelling Tylenol [Acetaminop* GI Upset diarrhea with high doses Current Medications Current Outpatient Medications on File Prior to Visit Medication Sig cyanocobalamin (VITAMIN B-12) 1,000 mcg tab Take 1 tablet by mouth once daily. rosuvastatin (CRESTOR) 40 mg tablet Take 1 tablet by mouth daily at bedtime. gabapentin (NEURONTIN) 400 mg capsule Take 1 capsule by mouth daily at bedtime for 90 days. amitriptyline (ELAVIL) 25 mg tablet Take 1 tablet by mouth daily at bedtime. AMOXICILLIN, BULK, MISC FISH OIL-DHA-EPA ORAL Take by mouth. Daily blood sugar diagnostic (BLOOD GLUCOSE TEST) test strip Test blood sugar(s) 1 times daily. Dx: Other DM Code R73.09 Insulin: No Lancets lancets Test blood sugar(s) 1 times daily. Dx: Other DM Code R73.09 Insulin: No Fenofibrate (LOFIBRA) 54 mg tablet Take 1 tablet by mouth once daily. metFORMIN ER (GLUCOPHAGE XR) 500 mg 24 hr tablet Take 1 tablet by mouth daily with breakfast. albuterol HFA (PROVENTIL HFA, VENTOLIN HFA) 90 mcg/actuation inhaler Inhale 2 Puffs as instructed every 4 hours as needed for wheezing/shortness of breath. ezetimibe (ZETIA) 10 mg tablet Take 1 tablet by mouth once daily. levothyroxine (SYNTHROID) 137 mcg tablet Take one daily and two on Friday. rOPINIRole (REQUIP) 1 mg tablet Take one tab by mouth before bed. Food Supplement, Lactose-Free (PROMOTE, OSMOLITE, TWO FABIENNE, ENSURE PLUS, ENLIVE) liqd Take 237 mL by mouth three times daily with meals. topiramate (TOPAMAX) 100 mg tablet Take 1 tablet by mouth twice daily. rimegepant (NURTEC ODT) 75 mg disintegrating tablet Take 1 tablet by mouth once daily as needed. ARIPiprazole (ABILIFY) 15 mg tablet Take 15 mg by mouth once daily. pantoprazole DR (PROTONIX) 40 mg tablet Take 1 tablet by mouth twice daily. Take on empty stomach, 1/2 hr before meal. aspirin, enteric coated (ASPIRIN, ENTERIC COATED) 81 mg EC tablet Take 81 mg by mouth every other day. CPAP Mask fitting and 30 day download for autopap 10 -20 cm H2O & formal mask refitting for medical necessity & schedule with the RT, chin strap, head gear, humidity, heated tubing (SACHI), lifetime supplies. G47.33 JORDAN lactase (LACTAID) 3,000 unit tablet Take 1 tablet by mouth three times daily with meals. acetaminophen (TYLENOL ARTHRITIS ORAL) Take 650 mg by mouth every 8 hours as needed. COMPOUNDED PRESCRIPTION Wheeled rolator walker with ahnd breaks and seat, # 1, Dx:M19.071, Z91.071 DULoxetine (CYMBALTA) 30 mg capsule Take 1 capsule by mouth once daily. [facility] No current facility-administered medications on file prior to visit. Social History Social History Tobacco Use Smoking status: Some Days Packs/day: 0.50 Years: 44.00 Additional pack years: 0.00 Total pack years: 22.00 Types: Cigarettes Last attempt to quit: 01/07/2018 Years since quittin.7 Smokeless tobacco: Never Tobacco comments: used welbutrin Vaping Use Vaping Use: Never used Substance Use Topics Alcohol use: No Drug use: No Review of Symptoms REVIEW OF SYSTEMS SEE HPI EXAM: BP 120/78 Pulse 80 Resp 16 Wt 83.5 kg (184 lb) BMI 32.59 kg/m General Appearance: Well appearing, alert, in no acute distress, well-hydrated, well nourished.. Skin: Skin color, texture, turgor normal, no suspicious rashes or lesions. Lungs: Lungs clear to auscultation. No wheezing, rhonchi, rales.. Heart: RRR without murmur, gallop, or rubs. No ectopy. Abdomen: Normal abdominal exam, Abdomen soft, non-tender. Bowel sounds normal. No masses, organomegaly Peripheral Pulses: Normal. Neurologic: Positive findings: shuffling gait. Health Maintenance List DTaP,Tdap,Td Vaccine(2 - Td or Tdap) due on 08/18/2023 Lung Cancer Screening due on 07/14/2024 Annual PCP Team Chronic Disease Visit due on 07/30/2024 Mammogram Screening due on 08/28/2024 Diabetes Screening due on 09/19/2026 Colorectal Cancer Screening due on 12/10/2027 Lipid Screening due on 09/19/2028 Bone Density Screening Completed Influenza Vaccine Completed Advance Directive Discussion Completed RSV Vaccine Completed Hepatitis C Screening Completed HIV Screening Completed Shingrix Vaccine Completed Pneumococcal Vaccine: 65+ Completed Alpha-1 Antitrypsin Deficiency Screening Discontinued Spirometry Discontinued Pap Testing Discontinued Covid-19 Vaccine Discontinued Data reviewed Component Latest Ref Rng & Units 09/19/2023 WBC 3.70 - 11.00 k/uL 6.18 RBC 3.90 - 5.20 m/uL 4.30 Hemoglobin 11.5 - 15.5 g/dL 12.3 Hematocrit 36.0 - 46.0 % 38.0 MCV 80.0 - 100.0 fL 88.4 MCH 26.0 - 34.0 pg 28.6 MCHC 30.5 - 36.0 g/dL 32.4 RDW-CV 11.5 - 15.0 % 14.6 Platelet Count 150 - 400 k/uL 322 MPV 9.0 - 12.7 fL 10.5 Neut% % 53.1 Abs Neut (ANC) 1.45 - 7.50 k/uL 3.28 Lymph% % 37.5 Abs Lymph 1.00 - 4.00 k/uL 2.32 Josephine% % 7.6 Abs Josephine <0.87 k/uL 0.47 Eosin% % 1.0 Abs Eosin <0.46 k/uL 0.06 Baso% % 0.6 Abs Baso <0.11 k/uL 0.04 Immature Gran % % 0.2 IMMATURE GRANS (ABS) <0.10 k/uL <0.03 NRBC /100 WBC 0.0 Absolute nRBC <0.01 k/uL <0.01 DTYPE Auto Color Yellow Yellow Clarity Clear Clear Glucose, Urine Negative Negative Bilirubin, Urine Negative Negative Ketones, Urine Negative Negative Specific [place], Ur 1.005 - 1.030 1.015 Hemoglobin/Blood,Ur Negative Negative pH, Urine <8.5 6.5 Protein, Urine Negative Negative Urobilinogen 0.2-1.0 EU/dL 0.2 EU/dL Nitrites Negative Negative Leukest Negative Negative WBC, Urine 0-5 /HPF 0-5 /HPF RBC, Urine 0-2 /HPF 3-5 /HPF (A) Bacteria Negative /HPF Negative Epithelial Cells /HPF None Seen Hyaline Cast 0 /LPF 0 /LPF Protein, Total 6.3 - 8.0 g/dL 7.1 Albumin 3.9 - 4.9 g/dL 4.2 Calcium 8.5 - 10.2 mg/dL 9.6 Bilirubin, Total 0.2 - 1.3 mg/dL 0.3 Alkaline Phosphatase 34 - 123 U/L 59 AST 13 - 35 U/L 14 ALT 7 - 38 U/L 10 Glucose 74 - 99 mg/dL 105 (H) BUN 7 - 21 mg/dL 22 (H) Creatinine 0.58 - 0.96 mg/dL 0.87 Sodium 136 - 144 mmol/L 141 Potassium 3.7 - 5.1 mmol/L 4.1 Chloride 97 - 105 mmol/L 110 (H) CO2 22 - 30 mmol/L 21 (L) Anion Gap 9 - 18 mmol/L 10 eGFR >=60 mL/min/1.73m 74 Total Cholesterol, Nonfasting <200 mg/dL 138 Triglycerides, Nonfasting <150 mg/dL 128 HDL Cholesterol, Nonfasting >39 mg/dL 39 (L) LDL Cholesterol, Nonfasting <100 mg/dL 73 Non HDL Cholesterol, Nonfasting <130 mg/dL 99 VLDL Cholesterol, Nonfasting <30 mg/dL 26 Total Chol/HDL Ratio, Nonfasting <5.10 mg/dL 3.54 LDL/HDL Ratio, Nonfasting <2.54 mg/dL 1.87 Hemoglobin A1C 4.3 - 5.6 % 6.0 (H) Estimated Average Glucose mg/dL 126 Vitamin D 25 Hydroxy 31.0 - 80.0 ng/mL 29.2 (L) Vitamin B12 232 - 1,245 pg/mL 672 TSH 0.270 - 4.200 mIU/L 0.161 (L) Magnesium 1.7 - 2.3 mg/dL 2.2 ASSESSMENT/PLAN: 1. Medicare annual wellness visit, subsequent - ICD9: V70.0, ICD10: Z00.00 (primary diagnosis) - Counseled on healthy diet and regular exercise - Calcium intake with supplements or by diet of 1000 mg/day for under 50, 0763-5983 mg/day for 50+ - Discussed need and benefit for weight loss. BMI 32.59 kg/(m^2) - Depression screening tool completed and reviewed with patient. Based on score and interview, patient is not at risk for depression and recommended no further intervention at this time. - Follow up for annual exam in one year 2. Vitamin B 12 deficiency - ICD9: 266.2, ICD10: E53.8 -Continue supplementation 3. Acquired hypothyroidism - ICD9: 244.9, ICD10: E03.9 - Instructed patient on importance of taking on an empty stomach either first thing in the morning or at bedtime. - Decrease Synthroid dose to 0.137 mg - LEVOTHYROXINE 137 MCG TABLET 4. Elevated hemoglobin A1c - ICD9: 790.29, ICD10: R73.09 -Improving 5. Gastroesophageal reflux disease with esophagitis without hemorrhage - ICD9: 530.81, 530.10, ICD10: K21.00 - Discussed lifestyle modifications including losing weight, limiting caffeine, no meals three hours before sleep, and head of bed elevation - Continue treatment with Pantoprazole QD 6. Mixed hyperlipidemia - ICD9: 272.2, ICD10: E78.2 - Controlled - Continue current medications - Counseled on healthy diet and regular exercise 7. Vitamin D deficiency - ICD9: 268.9, ICD10: E55.9 - ERGOCALCIFEROL (VITAMIN D2) 1,250 MCG (50,000 UNIT) CAPSULE 8. Balance problems - ICD9: 781.99, ICD10: R26.89 -Using walker and cane. -neck brace in place 9. Transient cerebral ischemia, unspecified type - ICD9: 435.9, ICD10: G45.9 -continue fenofibrate, crestor, zetia Jackie Mccoy APRN.DATABASE SECURITY EXPERT documented in this encounter [facility] 09-29-2023 Instructions Jackie Mccoy APRN.DATABASE SECURITY EXPERT - 09/29/2023 12:48 PM EST Screening schedule The following prevention plan is recommended: DTaP,Tdap,Td Vaccine(2 - Td or Tdap) due on 08/18/2023 WHAT YOU CAN DO TO PREVENT FALLS Many falls can be prevented. By making some changes, you can lower your chances of falling. Four things YOU can do to prevent falls for you* and your caregiver 1. Begin a regular exercise program Exercise is one of the most important ways to lower your chances of falling. It makes you stronger and helps you feel better. Exercises that improve balance and coordination (like Victor [employer] Chi) are the most helpful. Lack of exercise leads to weakness and increases your chances of falling. Ask your doctor or health care provider about the best type of exercise program for you. 2. Have your health care provider review your medicines Have your doctor or pharmacist review all the medicines you take, even [id number] medicines. As you get older, the way medicines work in your body can change. Some medicines, or combinations of medicines, can make you sleepy or dizzy and can cause you to fall. 3. Have your vision checked Have your eyes checked by an eye doctor at least once a year. You may be wearing the wrong glasses or have a condition like glaucoma or cataracts that limits your vision. Poor vision can increase your chances of falling. 4. Make your home safer About half of all falls happen at home. To make your home safer: Remove things you can trip over (like papers, books, clothes, and shoes) from stairs and places where you walk. Remove small throw rugs or use double-sided tape to keep the rugs from slipping. Keep items you use often in cabinets you can reach easily without using a step stool. Have grab bars put in next to your toilet and in the tub or shower. Use non-slip mats in the bathtub and on shower floors. Improve the lighting in your home. As you get older, you need brighter lights to see well. Hang light-weight curtains or shades to reduce glare. Have handrails and lights put in on all staircases. Wear shoes both inside and outside the house. Avoid going barefoot or wearing slippers. For more information, contact: Centers for Disease Control and Prevention www.cdc.gov/injury * This information may not apply if you have certain medical conditions. documented in this encounter [facility] 09-29-2023 Miscellaneous Notes Patient phones requesting refills as follows: Requested Prescriptions Pending Prescriptions Disp Refills plecanatide (TRULANCE) 3 mg tablet 60 tablet 2 Sig: Take 1 tablet (3 mg) by mouth once daily. Please review and advise. Enma Ramos Ma documented in this encounter [facility] 09-16-2023 Miscellaneous Notes Patient notified and verbalized understanding of instructions given.Elisabeth Fry LPN Bacterial infection was noted on urine culture. Antibiotic that was prescribed is susceptible to bacteria. Continue taking antibiotic as prescribed. Follow-up with PCP if symptoms are not improving. Kyle Garrett APRN.DATABASE SECURITY EXPERT documented in this encounter [facility] 09-15-2023 Miscellaneous Notes LAKESHA: 07/30/23 with PCP NOV: 09/29/23-medicare wellness with DK Last refill: 12/30/22 With 90 and 1 refills Betzaida Paris MA documented in this encounter [facility] 09-14-2023 Note [facility] 09-14-2023 History of Present illness Narrative Subjective Hematuria Irritative symptoms do not include frequency or urgency. Associated symptoms include dysuria. Pertinent negatives include no abdominal pain, chills, fever, nausea or vomiting. Chanda Haq is a 63 year old female who presents with concern for UTI, she has had pain with urination, back pain, and blood in her urine. She denies fever or chills, nausea or vomiting. She has taken tylenol at home for back pain. Review of Systems Constitutional: Negative for chills and fever. Respiratory: Negative. Cardiovascular: Negative. Gastrointestinal: Negative for abdominal pain, nausea and vomiting. Genitourinary: Positive for dysuria and hematuria. Negative for frequency and urgency. Musculoskeletal: Positive for back pain. BP 128/76 Pulse 87 Temp 36.4 C (97.5 F) Resp 18 Wt 84.4 kg (186 lb) SpO2 98% BMI 32.95 kg/m PAST MEDICAL HISTORY Diagnosis Date Acquired hypothyroidism 08/22/2015 ACUTE GASTRITIS W/O HEMORRHAGE 02/05/2006 Advance directive discussed with patient 04/02/2023 Discussed 03/2023: Up to date Anxiety and depression 10/05/2020 Arthritis 05/18/2020 Arthritis of lumbar spine 03/05/2022 Mod Arthritis of right foot 09/02/2018 At high risk for falls 09/02/2018 Backache, unspecified 01/11/2013 Bilateral carotid artery stenosis 09/25/2020 09/2020 20-40% bilaterally Bipolar I disorder (HCC) 12/20/2005 Seeds Stinger at [facility] Cervical disc disorder with radiculopathy 09/27/2021 Cervical radiculopathy 09/19/2021 Cervical spondylosis 09/19/2021 Seeing pain management Cervical spondylosis without myelopathy 09/27/2021 Cervical stenosis of spinal canal 09/19/2021 Chronic pain of left knee 06/19/2019 Class 1 obesity due to excess calories without serious comorbidity with body mass index (BMI) of 33.0 to 33.9 in adult 03/03/2018 Current use of proton pump inhibitor 03/03/2018 Diaphragmatic hernia without mention of obstruction or gangrene 02/05/2006 Elevated hemoglobin A1c 06/29/2018 Encounter for screening mammogram for breast cancer 03/05/2019 Ex-smoker 08/22/2015 Started at age 14 and has smoked up to 1/2 a PPD, quit 12/2017 External hemorrhoids without mention of complication Gastroesophageal reflux disease with esophagitis 08/22/2015 Gastroparesis 01/30/2023 Hearing loss Hearing aids in both ears. Hiatal hernia 02/19/2023 small History of transient ischemic attack (TIA) 11/05/2019 Incontinence 02/20/[address] Jordan Irritable bowel syndrome with constipation 03/03/2018 Lactose intolerance 03/05/2019 Living will on file at physician's office 04/02/2023 DPA: John () Lung nodules 12/11/2017 CT 12/11/[address] 05/2018 stable needs repeat in 2 yrs Medicare annual wellness visit, subsequent 03/03/2018 Medicare Part B: 06/17/2001 last done: 03/05/2019 Migraine without aura and without status migrainosus, not intractable 05/22/2016 Mixed hyperlipidemia 08/22/2015 JORDAN (obstructive sleep apnea) 09/02/2018 DME DASCO Osteopenia of lumbar spine 11/27/2020 Borderline on DXA 11/2020 Other constipation 07/21/2019 Overactive bladder 05/30/2015 Personal history of fibromyalgia 06/17/2023 Patient mentions this at appt on 06/17/2023 Primary insomnia 07/30/2018 Primary osteoarthritis of left knee 11/05/2019 RLS (restless legs syndrome) 06/04/2019 S/P total knee arthroplasty, left 10/18/2020 Smoker 08/22/2015 Started at age 14 and has smoked up to 1/2 a PPD, quit 12/2017 Thoracic arthritis 03/05/2022 Mild Vitamin D deficiency 01/25/2020 PAST SURGICAL HISTORY Procedure Laterality Date 48 HOUR PH STUDY 02/19/2023 Dr. Domínguez ARTHROSCOPY KNEE DIAGNOSTIC W/WO SYNOVIAL BX SPX Left ARTHRS KNE SURG W/MENISCECTOMY MED/LAT W/SHVG Left 12/01/2019 COLONOSCOPY 02/28/2009 COLONOSCOPY 02/04/2018 COLONOSCOPY 08/11/2019 one polyp, repeat 10 yrs COLONOSCOPY 12/10/2022 Hyperplastic rectal polyp CYSTOURETHROSCOPY 10/05/2015 EGD WITH BIOPSY(S) 02/05/2006 EGD WITH BIOPSY(S) 12/21/2014 EGD WITH BIOPSY(S) 03/29/2015 EGD WITH BIOPSY(S) 03/24/2018 Dr. Garcia reported as normal. Neg for Hpylori and celiac. EGD WITH BIOPSY(S) 12/10/2022 Mild nonspecific inflammation in stomach EGD WITH BIOPSY(S) 02/19/2023 small hiatal hernia; Dr. Domínguez EXC/DSTRJ LINGUAL TONSIL ANY METHOD SPX remote MANOMETRY ESOPHAGEAL 02/19/2023 Dr. Britt PAST SURGICAL HISTORY OF 10/05/2015 TOT monarc sling PAST SURGICAL HISTORY OF Left 05/03/2016 ulnar nerve decompression PER ORAL PYLOROMYOTOMY (POP) PROCEDURE (COMP 60822) 05/08/2023 Dr. Domínguez TOTAL KNEE REPLACEMENT Left 10/18/2020 ALLERGIES Ditropan [Oxybutynin Chloride], Benztropine, Cogentin [Benztropine Mesylate], Depakote [Divalproex Sodium], Flagyl [Metronidazole Hcl], Ibuprofen, Nexium [Esomeprazole Magnesium], Oxybutynin, Oxycodone, Percocet [Oxycodone-Acetaminophen], and Tylenol [Acetaminophen] MEDICATIONS rosuvastatin (CRESTOR) 40 mg tablet Take 1 tablet by mouth daily at bedtime. gabapentin (NEURONTIN) 400 mg capsule Take 1 capsule by mouth daily at bedtime for 90 days. amitriptyline (ELAVIL) 25 mg tablet Take 1 tablet by mouth daily at bedtime. AMOXICILLIN, BULK, MISC FISH OIL-DHA-EPA ORAL Take by mouth. Daily blood sugar diagnostic (BLOOD GLUCOSE TEST) test strip Test blood sugar(s) 1 times daily. Dx: Other DM Code R73.09 Insulin: No Lancets lancets Test blood sugar(s) 1 times daily. Dx: Other DM Code R73.09 Insulin: No Fenofibrate (LOFIBRA) 54 mg tablet Take 1 tablet by mouth once daily. metFORMIN ER (GLUCOPHAGE XR) 500 mg 24 hr tablet Take 1 tablet by mouth daily with breakfast. albuterol HFA (PROVENTIL HFA, VENTOLIN HFA) 90 mcg/actuation inhaler Inhale 2 Puffs as instructed every 4 hours as needed for wheezing/shortness of breath. ezetimibe (ZETIA) 10 mg tablet Take 1 tablet by mouth once daily. levothyroxine (SYNTHROID) 137 mcg tablet Take one daily and two on Friday. rOPINIRole (REQUIP) 1 mg tablet Take one tab by mouth before bed. Food Supplement, Lactose-Free (PROMOTE, OSMOLITE, TWO FABIENNE, ENSURE PLUS, ENLIVE) liqd Take 237 mL by mouth three times daily with meals. plecanatide (TRULANCE) 3 mg tablet Take 1 tablet (3 mg) by mouth once daily. topiramate (TOPAMAX) 100 mg tablet Take 1 tablet by mouth twice daily. rimegepant (NURTEC ODT) 75 mg disintegrating tablet Take 1 tablet by mouth once daily as needed. cyanocobalamin (VITAMIN B-12) 1,000 mcg tab Take 1 tablet by mouth once daily. ARIPiprazole (ABILIFY) 15 mg tablet Take 15 mg by mouth once daily. aspirin, enteric coated (ASPIRIN, ENTERIC COATED) 81 mg EC tablet Take 81 mg by mouth every other day. CPAP Mask fitting and 30 day download for autopap 10 -20 cm H2O & formal mask refitting for medical necessity & schedule with the RT, chin strap, head gear, humidity, heated tubing (SACHI), lifetime supplies. G47.33 JORDAN lactase (LACTAID) 3,000 unit tablet Take 1 tablet by mouth three times daily with meals. acetaminophen (TYLENOL ARTHRITIS ORAL) Take 650 mg by mouth every 8 hours as needed. COMPOUNDED PRESCRIPTION Wheeled rolator walker with nd breaks and seat, # 1, Dx:M19.071, Z91.071 DULoxetine (CYMBALTA) 30 mg capsule Take 1 capsule by mouth once daily. [facility] cephALEXin (KEFLEX) 500 mg capsule Take 1 capsule by mouth three times a day for [address] (PROTONIX) 40 mg tablet Take 1 tablet by mouth twice daily. Take on empty stomach, 1/2 hr before meal. FAMILY HISTORY Problem Relation Age of Onset Cancer Mother Hysterectomy Alcohol/Drug Father Alcoholic other (Leukemia) Sister shortly after Heart Attack Brother x 2 Diabetes Brother Heart Maternal Grandmother Hearing Loss Maternal Grandmother Headache Maternal Grandmother Diabetes Maternal Grandmother Stroke Maternal Grandmother Heart Maternal Grandfather Diabetes Maternal Grandfather No Known Problems Paternal Grandmother No Known Problems Paternal Grandfather Coronary Artery Disease Son Hyperlipidemia Son Hypertension Son Hyperlipidemia Son No Known Problems Son Colon Cancer No Family History Social History Tobacco Use Smoking status: Some Days Packs/day: 0.50 Years: 44.00 Additional pack years: 0.00 Total pack years: 22.00 Types: Cigarettes Last attempt to quit: 01/07/2018 Years since quittin.6 Smokeless tobacco: Never Tobacco comments: used welbutrin Vaping Use Vaping Use: Never used Substance Use Topics Alcohol use: No Drug use: No Objective Physical Exam Vitals and nursing note reviewed. Constitutional: General: She is not in acute distress. Appearance: Normal appearance. Cardiovascular: Rate and Rhythm: Normal rate and regular rhythm. Heart sounds: Normal heart sounds. Pulmonary: Effort: Pulmonary effort is normal. No respiratory distress. Breath sounds: Normal breath sounds. No wheezing or rales. Abdominal: General: There is no distension. Palpations: Abdomen is soft. There is no mass. Tenderness: There is abdominal tenderness in the suprapubic area. There is no right CVA tenderness, left CVA tenderness or guarding. Skin: General: Skin is warm and dry. Neurological: Mental Status: She is alert. Last labs for kidney function: Component Latest Ref Rng & Units 08/01/2023 Protein, Total 6.3 - 8.0 g/dL 6.9 Albumin 3.9 - 4.9 g/dL 4.4 Calcium 8.5 - 10.2 mg/dL 9.5 Bilirubin, Total 0.2 - 1.3 mg/dL <0.2 (L) Alkaline Phosphatase 34 - 123 U/L 75 AST 13 - 35 U/L 19 ALT 7 - 38 U/L 16 Glucose 74 - 99 mg/dL 116 (H) BUN 7 - 21 mg/dL 16 Creatinine 0.58 - 0.96 mg/dL 0.85 Sodium 136 - 144 mmol/L 141 Potassium 3.7 - 5.1 mmol/L 3.8 Chloride 97 - 105 mmol/L 105 CO2 22 - 30 mmol/L 24 Anion Gap 9 - 18 mmol/L 12 eGFR >=60 mL/min/1.73m 76 ASSESSMENT/PLAN: 1. Pain with urination - ICD9: 788.1, ICD10: R30.9 acute - UA positive for anny esterase, hematuria, proteinuria, and nitrates - Send urine for culture - Begin treatment with cephalexin for 7 days - Patient education for prevention given - UA DIP, URINE (POC) - URINE CULTURE - CEPHALEXIN 500 MG CAPSULE - Follow-up with your PCP in 3-5 days if symptoms have not improved or sooner if symptoms worsen - Discussed red flags and need for immediate medical evaluation if any occur. - Discussed supportive care treatment with fluids, rest and analgesia. - Discussed expected course of illness Trang Bernardo APRN.DATABASE SECURITY EXPERT documented in this encounter [facility] 09-14-2023 Instructions Trang Bernardo APRN.CNP - 09/14/2023 3:47 PM EDT ASSESSMENT/PLAN: 1. Pain with urination - ICD9: 788.1, ICD10: R30.9 acute - UA positive for anny esterase, hematuria, proteinuria, and nitrates - Send urine for culture - Begin treatment with cephalexin for 7 days - Patient education for prevention given - UA DIP, URINE (POC) - URINE CULTURE - CEPHALEXIN 500 MG CAPSULE - Follow-up with your PCP in 3-5 days if symptoms have not improved or sooner if symptoms worsen - Discussed red flags and need for immediate medical evaluation if any occur. - Discussed supportive care treatment with fluids, rest and analgesia. - Discussed expected course of illness Trang Bernardo APRN.DATABASE SECURITY EXPERT documented in this encounter [facility] 09-10-2023 Miscellaneous Notes The following approved medication requests have been transmitted electronically. Requested Prescriptions Signed Prescriptions Disp Refills rosuvastatin (CRESTOR) 40 mg tablet 90 tablet 1 Sig: Take 1 tablet by mouth daily at bedtime. Authorizing Provider: KYLE SYLVESTER MD Patient has been identified by name and date of : Yes, Provider Dr. Sylvester Date 09/10/23 Time 10:07 am Patient phones for refill(s): Requested Prescriptions Pending Prescriptions Disp Refills rosuvastatin (CRESTOR) 40 mg tablet 90 tablet 1 Sig: Take 1 tablet by mouth daily at bedtime. Date of last office visit in primary care: 07/30/2023 Date of next office visit in primary care: 09/29/2023 Last 2 Encounter Wt Readings: Date: Wt: 08/28/2023 84.3 kg (185 lb 12.8 oz) 08/15/2023 84.2 kg (185 lb 9.6 oz) Previous labs/tests for medication: Cholesterol: HDL Cholesterol (mg/dL) Date Value 09/07/2022 36 04/08/2018 44 HDL Cholesterol, Nonfasting (mg/dL) Date Value 08/16/2021 45 LDL Cholesterol (mg/dL) Date Value 09/07/2022 62 04/08/2018 88 LDL Cholesterol, Nonfasting (mg/dL) Date Value 03/27/2022 65 08/16/2021 71 ALT (U/L) Date Value 08/01/2023 16 10/08/2021 13 Non HDL Cholesterol, Nonfasting (mg/dL) Date Value 08/16/2021 102 Non HDL Cholesterol (mg/dL) Date Value 09/07/2022 91 Thank you. Afia Zuñiga LPN. documented in this encounter [facility] 09-04-2023 Note HNO ID: [id number] Author: Jenna Early APRN.DATABASE SECURITY EXPERT Service: ? Author Type: Nurse Practitioner Type: Progress Notes Filed: 09/04/2023 4:31 PM Note Text: [facility] Today's Date:09/04/2023 Last Visit: 06/05/2023 Name: Chanda Haq : 1960 Purpose: Established Patient Encounter Patient presents with: Neck Pain Follow Up History of Present Illness: Chanda Haq 63 year old female with complaints of chronic neck pain Pain Description: Timing: constant Character: Aching Primary Location: Neck Pain Radiation: Into her shoulders Exacerbating factors: activity Relieving factors: ice , heat, and massage Interferes with: ADL's The patient reports she is sleeping better The patient denies difficulty with bowel or bladder control Patient continues to have neck pain as described above. Patient states she has been doing a little bit better than she was doing in the past as she is seeing a chiropractor and he seems to be helping her with the pain. Patient states that she is wearing the neck brace only when she is doing extraneous activities but most of the day she is without it and she feels she is having better control of her head. Patient states she stopped taking the gabapentin 600 mg. States it was making her too sleepy but she has continued with 400 mg nightly. Patient would need a refill to continue this medication as she feels it is helping. New Problems: none Pertinent Past Medical History: migraine, RLS, cervical radiculopathy, JORDAN, GERD, IBS, Gastroparesis, hypothyroidism, osteopenia lumbar spin,e scoliosis, dropped head syndrome, anxiety/depression, bipolar disorder Pain Procedures: Date Procedure relief 07/04/2022 Right Shoulder (Fluoro-guided) No relief 06/20/2022 MBB Left C4-7 + steroids No relief 06/06/2022 MBB Right C4-7 + steroids 90% x 4 hours 04/03/2022 RFA Left C3-4,4-5,5-6 No relief (had flare-up afterwards) 03/20/2022 RFA Right C3-4,4-5,5-6 No relief (had flare-up afterwards) 01/02/2022 MBB Bilat C3-6 (Lido) 100% x 6 hours (positive diagnostic) 12/19/2021 MBB Bilat C3-6 (Bupi) 100% x 6 hours (positive diagnostic) 09/13/2021 ILESI C7-T1 No relief 07/26/2021 TPI No relief INTAKE PAIN ASSESSMENT 08/21/2023 08/28/2023 Are you having pain associated with your visit today? Yes, Provider notified Yes, Provider notified Pain Scales - - Pain Level 5 6 Pain Location Abdomen Abdomen Description Cramping Bloating Duration Amount of Time 1 1 Duration Units Months Months Frequency Intermittent Intermittent Intervention/Comfort measure Medication;Heat;Massage - Comments - - Pain Assessment - - CURRENT Pain Medications: Membrane Stabilizers: Topamax (Topiramate) gabapentin NSAIDS: none Opioids: none Muscle Relaxants: Zanaflex (Tizanidine) Topicals: none Other Prescription or OTC Pain Medications: Tylenol (Acetaminophen) Anti-depressants: Cymbalta Non-Pain Meds of Note: none Compliance: PDMP website checked and validated. All prescriptions have been APPROPRIATELY filled. No suspicious activity was identified.09/03/2023 by Jenna Early APRN.DATABASE SECURITY EXPERT Last Drug screen: Not Applicable Pill Count: No question data found. Risk Assessment: Opioid Risk Tool: Opioid Risk Tool: (0-3, low risk or no risk; 4-7, moderate risk, 8+, high risk) ALISSA-7: ALISSA - 7 SCORES 07/03/2022 07/09/2022 07/23/2023 ALISSA-7 Score 0 0 2 (0-4) minimal anxiety, (5-9) mild anxiety, (10-14) moderate anxiety, (15-21) severe anxiety PHQ-9: PHQ-9 01/15/2023 06/10/2023 07/23/2023 Score 6 7 8 (0-4) minimal depression, (5-9) mild depression, (10-14) moderate depression, (15-19) moderately severe depression, (20-27) severe depression Diagnostic Studies: MRI Spine Report MRI CERVICAL SPINE WO IVCON Exam End: 06/11/2022 2:58 PM (Final result) Narrative: * * *Final Report* * * DATE OF EXAM: Jun 11 2022 2:58PM [facility] [id number] - MRI CERVICAL SPINE WO IVCON / PROCEDURE REASON: Cervical radiculopathy * * * * Physician Interpretation * * * * EXAMINATION: MRI CERVICAL SPINE WO IVCON CLINICAL HISTORY: Cervical radiculopathy. This information is taken directly from the manager order system. TECHNIQUE: Routine cervical spine MR protocol without gadolinium. MQ: [id number] COMPARISON: Previous MRI of the cervical spine 07/06/2021. Outside cervical spine CT 04/19/2022. RESULT: Counting reference: Craniocervical junction. Anatomic Variants: None. Localizer images: No evidence for mass within the resolving capacity of the second hand Alignment: Kyphotic curvature in the cervical spine centered at C6. Minimal grade 1 anterolisthesis of C4 on C5 and C5 on C6. Minimal retrolisthesis of C6 on C7 on the order of 2 mm. Very slight curvature convex left in the coronal plane. Craniocervical junction: Degenerative spurring at the atlantodental joint. Otherwise, dens is normally aligned. Ample CSF spa (more content not included)... [facility] 09-04-2023 Note HNO ID: [id number] Author: Yeni Fu LPN Service: ? Author Type: LICENSED NURSE Type: Progress Notes Filed: 09/04/2023 4:31 PM Note Text: Review of Systems Constitutional: Positive for activity change. Negative for chills, fever and unexpected weight change. Gastrointestinal: Negative for bowel retention or incontinence Genitourinary: Negative for difficulty urinating. Negative for bladder retention or incontinence Musculoskeletal: Positive for back pain, gait problem, neck pain and neck stiffness. Negative for arthralgias, joint swelling and myalgias. Neurological: Positive for headaches. Negative for weakness and numbness. Psychiatric/Behavioral: Positive for dysphoric mood. Negative for sleep disturbance and suicidal ideas. The patient is nervous/anxious. [facility] 09-04-2023 History of Present illness Narrative Images from the original note were not included. [facility] Today's Date:09/04/2023 Last Visit: 06/05/2023 Name: Chanda Haq : 1960 Purpose: Established Patient Encounter Patient presents with: Neck Pain Follow Up History of Present Illness: Chanda Haq 63 year old female with complaints of chronic neck pain Pain Description: Timing: constant Character: Aching Primary Location: Neck Pain Radiation: Into her shoulders Exacerbating factors: activity Relieving factors: ice , heat, and massage Interferes with: ADL's The patient reports she is sleeping better The patient denies difficulty with bowel or bladder control Patient continues to have neck pain as described above. Patient states she has been doing a little bit better than she was doing in the past as she is seeing a chiropractor and he seems to be helping her with the pain. Patient states that she is wearing the neck brace only when she is doing extraneous activities but most of the day she is without it and she feels she is having better control of her head. Patient states she stopped taking the gabapentin 600 mg. States it was making her too sleepy but she has continued with 400 mg nightly. Patient would need a refill to continue this medication as she feels it is helping. New Problems: none Pertinent Past Medical History: migraine, RLS, cervical radiculopathy, JORDAN, GERD, IBS, Gastroparesis, hypothyroidism, osteopenia lumbar spin,e scoliosis, dropped head syndrome, anxiety/depression, bipolar disorder Pain Procedures: Date Procedure relief 07/04/2022 Right Shoulder (Fluoro-guided) No relief 06/20/2022 MBB Left C4-7 + steroids No relief 06/06/2022 MBB Right C4-7 + steroids 90% x 4 hours 04/03/2022 RFA Left C3-4,4-5,5-6 No relief (had flare-up afterwards) 03/20/2022 RFA Right C3-4,4-5,5-6 No relief (had flare-up afterwards) 01/02/2022 MBB Bilat C3-6 (Lido) 100% x 6 hours (positive diagnostic) 12/19/2021 MBB Bilat C3-6 (Bupi) 100% x 6 hours (positive diagnostic) 09/13/2021 ILESI C7-T1 No relief 07/26/2021 TPI No relief INTAKE PAIN ASSESSMENT 08/21/2023 08/28/2023 Are you having pain associated with your visit today? Yes, Provider notified Yes, Provider notified Pain Scales - - Pain Level 5 6 Pain Location Abdomen Abdomen Description Cramping Bloating Duration Amount of Time 1 1 Duration Units Months Months Frequency Intermittent Intermittent Intervention/Comfort measure Medication;Heat;Massage - Comments - - Pain Assessment - - CURRENT Pain Medications: Membrane Stabilizers: Topamax (Topiramate) gabapentin NSAIDS: none Opioids: none Muscle Relaxants: Zanaflex (Tizanidine) Topicals: none Other Prescription or OTC Pain Medications: Tylenol (Acetaminophen) Anti-depressants: Cymbalta Non-Pain Meds of Note: none Compliance: PDMP website checked and validated. All prescriptions have been APPROPRIATELY filled. No suspicious activity was identified.09/03/2023 by Jenna Early APRN.DATABASE SECURITY EXPERT Last Drug screen: Not Applicable Pill Count: No question data found. Risk Assessment: Opioid Risk Tool: Opioid Risk Tool: (0-3, low risk or no risk; 4-7, moderate risk, 8+, high risk) ALISSA-7: ALISSA - 7 SCORES 07/03/2022 07/09/2022 07/23/2023 ALISSA-7 Score 0 0 2 (0-4) minimal anxiety, (5-9) mild anxiety, (10-14) moderate anxiety, (15-21) severe anxiety PHQ-9: PHQ-9 01/15/2023 06/10/2023 07/23/2023 Score 6 7 8 (0-4) minimal depression, (5-9) mild depression, (10-14) moderate depression, (15-19) moderately severe depression, (20-27) severe depression Diagnostic Studies: MRI Spine Report MRI CERVICAL SPINE WO IVCON Exam End: 06/11/2022 2:58 PM (Final result) Narrative: * * *Final Report* * * DATE OF EXAM: Jun 11 2022 2:58PM [facility] 0297 - MRI CERVICAL SPINE WO IVCON / PROCEDURE REASON: Cervical radiculopathy * * * * Physician Interpretation * * * * EXAMINATION: MRI CERVICAL SPINE WO IVCON CLINICAL HISTORY: Cervical radiculopathy. This information is taken directly from the manager order system. TECHNIQUE: Routine cervical spine MR protocol without gadolinium. MQ: [id number] COMPARISON: Previous MRI of the cervical spine 07/06/2021. Outside cervical spine CT 04/19/2022. RESULT: Counting reference: Craniocervical junction. Anatomic Variants: None. Localizer images: No evidence for mass within the resolving capacity of the second hand Alignment: Kyphotic curvature in the cervical spine centered at C6. Minimal grade 1 anterolisthesis of C4 on C5 and C5 on C6. Minimal retrolisthesis of C6 on C7 on the order of 2 mm. Very slight curvature convex left in the coronal plane. Craniocervical junction: Degenerative spurring at the atlantodental joint. Otherwise, dens is normally aligned. Ample CSF space surrounding the cord at this level. Cord: Cord is draped over the kyphotic curvature, but there is otherwise no gross cord compression. Otherwise satisfactory CSF space surrounding the cord through the lower limit of the [id number] which is at lower T4. Bone marrow signal/fracture: Mild endplate degenerative change. No other pathologic marrow infiltration. Cervical soft tissues: The paraspinal soft tissues are within normal limits. C2-C3: Facet degenerative change. Canal and foramina remain patent. C3-C4: Minimal disc bulging and facet degenerative change. Canal and foramina remain patent. C4-C5: Minor disc bulging and facet degenerative change. Canal and foramina remain patent. C5-C6: Minor disc bulging and mild facet degenerative change. Flattening of ventral thecal sac, but no cord compression. Foramina are patent. C6-C7: Minor disc bulging and very shallow protrusion. Indentation of ventral thecal sac, and the cord is draped over the kyphotic curvature centered at the C6 level, but there is no cord compression or abnormal cord signal. Foramina are patent. C7-T1: Canal and foramina are patent. Upper thoracic canal and foramina are patent through the lower limit of the [id number] which is at lower T4. Impression: IMPRESSION: Kyphotic cervical curvature in the sagittal plane centered at C6. The cord is draped over the kyphotic curvature, but there is otherwise no substantive canal or foraminal narrowing. Other general findings as noted. Anatomic Variant: None. Assume 7 cervical vertebrae with counting from the craniocervical junction. Electric Organ Inspector And Repairer: ALEX Transcribe Date/Time: Jun 11 2022 3:15P Dictated by : DAISY CANAS MD This examination was interpreted and the report reviewed and electronically signed by: DAISY CANAS MD on Jun 11 2022 3:22PM EST Recent Labs: Glucose (mg/dL) Date Value 08/01/2023 116 10/08/2021 94 Potassium (mmol/L) Date Value 08/01/2023 3.8 11/15/2021 3.9 Sodium (mmol/L) Date Value 08/01/2023 141 10/08/2021 142 Chloride (mmol/L) Date Value 08/01/2023 105 10/08/2021 107 CO2 (mmol/L) Date Value 08/01/2023 24 10/08/2021 24 Creatinine (mg/dL) Date Value 08/01/2023 0.85 10/08/2021 0.96 BUN (mg/dL) Date Value 08/01/2023 16 10/08/2021 19 Anion Gap (mmol/L) Date Value 08/01/2023 12 10/08/2021 11 Calcium (mg/dL) Date Value 10/08/2021 10.2 Calcium, Total (mg/dL) Date Value 08/01/2023 9.5 Protein, Total (g/dL) Date Value 08/01/2023 6.9 10/08/2021 7.4 Albumin (g/dL) Date Value 08/01/2023 4.4 10/08/2021 4.5 Bilirubin, Total (mg/dL) Date Value 08/01/2023 <0.2 10/08/2021 0.2 Alkaline Phosphatase (U/L) Date Value 08/01/2023 75 10/08/2021 64 AST (U/L) Date Value 08/01/2023 19 10/08/2021 18 ALT (U/L) Date Value 08/01/2023 16 10/08/2021 13 Electrodiagnostic Study (EMG): None Current Medications, Past Medical History, Past Surgical History, Family History, Social History and Review of Systems: On today's date, noted above, I have confirmed and edited as necessary, the PFSH and ROS obtained by others. Physical Exam: 09/04/23 1251 Pulse: 70 Resp: 18 SpO2: 94% Physical Exam Vitals reviewed. Constitutional: General: She is not in acute distress. Appearance: She is not ill-appearing. HENT: Head: Normocephalic and atraumatic. Eyes: Conjunctiva/sclera: Conjunctivae normal. Cardiovascular: Pulses: Normal pulses. Pulmonary: Effort: Pulmonary effort is normal. No respiratory distress. Musculoskeletal: Cervical back: Spasms (tightness of cervical spine with movement) and tenderness present. Pain with movement present. Decreased range of motion. Comments: Pt was wearing a neck brace, removed brace, Pt was able to hold her head straight forward when reminded. Skin: General: Skin is warm and dry. Neurological: Mental Status: She is alert and oriented to person, place, and time. Motor: Weakness (upper arm weakness) present. Deep Tendon Reflexes: Reflex Scores: Tricep reflexes are 1+ on the right side and 1+ on the left side. Bicep reflexes are 1+ on the right side and 1+ on the left side. Psychiatric: Mood and Affect: Mood and affect normal. Behavior: Behavior normal. Behavior is cooperative. Diagnoses: (M47.812) Cervical spondylosis without myelopathy (primary encounter diagnosis) (M48.02) Cervical stenosis of spinal canal (M54.12) Cervical radiculopathy (M19.011) Primary osteoarthritis of right shoulder (M54.12) Radiculopathy, cervical region (M79.18) Myofascial pain Impression: 63 year old female presents with complaint(s) of neck pain. Take 1/2 tizandidne Plan: Chanda Haq would benefit from the following to reach personal goals for decreasing pain, improving function and work participation, and/or improving quality of life: Medication(s): Requested Prescriptions Signed Prescriptions Disp Refills gabapentin (NEURONTIN) 400 mg capsule 90 capsule 0 Sig: Take 1 capsule by mouth daily at bedtime for 90 days. Additional Studies: none Referrals: Functional Anglican: Depending on response to the above plan, consider: PT -Follow-up: 3 months. Attribution: In addition to reviewing the information noted above, some elements copied from my most recent clinical note(s), including the physical exam (completed in entirety today), and the impression and plan sections, have been updated where appropriate. All reflect current medical decision making from today's date. Jenna Early CNP. Pain Management [facility] Review of Systems Constitutional: Positive for activity change. Negative for chills, fever and unexpected weight change. Gastrointestinal: Negative for bowel retention or incontinence Genitourinary: Negative for difficulty urinating. Negative for bladder retention or incontinence Musculoskeletal: Positive for back pain, gait problem, neck pain and neck stiffness. Negative for arthralgias, joint swelling and myalgias. Neurological: Positive for headaches. Negative for weakness and numbness. Psychiatric/Behavioral: Positive for dysphoric mood. Negative for sleep disturbance and suicidal ideas. The patient is nervous/anxious. documented in this encounter [facility] 09-02-2023 Miscellaneous Notes The following approved medication requests have been transmitted electronically. Requested Prescriptions Signed Prescriptions Disp Refills amitriptyline (ELAVIL) 25 mg tablet 90 tablet 1 Sig: Take 1 tablet by mouth daily at bedtime. Authorizing Provider: GOGO LOWERY APRN.DATABASE SECURITY EXPERT Physician: Sebastián Call from patient requesting refill. Please E-Scribe Last office visit 01/22/23 with Sebastián virtual Next office visit Not scheduled. Requested Prescriptions Pending Prescriptions Disp Refills amitriptyline (ELAVIL) 25 mg tablet 90 tablet 3 Sig: Take 1 tablet by mouth daily at bedtime. Pharmacy Name: [facility] documented in this encounter [facility] 08-28-2023 Note HNO ID: [id number] Author: Abel Domínguez MD Service: ? Author Type: Physician Type: Progress Notes Filed: 08/28/2023 2:13 PM Note Text: [facility] [address] [place] [address] Abel Domínguez MD Follow up Gastroparesis History of Present Illness: Patient is a 62 year old female whose Body mass index is 32.91 kg/m?. who presents to general surgery clinic for initial consultation. The patient presents with chief complaint of GERD and gastroparesis. They report a history of heartburn, dysphagia, and regurgitation which have been ongoing for 3 +week however has had GERD issues for several years. Exacerbating factors: caffeine/coffee/carbonated beverages and acidic food. Alleviating factors: drinking, sleeping reclined and taking antacids. Additional symptoms: bloating, belching, cramping, diarrhea and constipation . Prior workup: EGD, colonoscopy and CT abdomen. Stopped taking Ozempic. Interval update: S/p endoscopic perioral pyloromyotomy on 05/08/23. Had been doing well at her post op visit however in the last three months, she has picked up smoking again and not following dietary changes as before. Having bloating and distention. Having 3-4 bowel movements a day. Denies heartburn or dysphagia or vomiting. Review of Systems: Review of Systems HENT: Negative. Eyes: Negative. Respiratory: Negative. Cardiovascular: Negative. Gastrointestinal: Negative for abdominal pain, heartburn, nausea and vomiting. Genitourinary: Negative. Musculoskeletal: Negative. Skin: Negative. Neurological: Negative. Endo/Heme/Allergies: Negative. Psychiatric/Behavioral: Negative. 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 Cervical disc disorder with radiculopathy 09/27/2021 Cervical radiculopathy 09/19/2021 Cervical spondylosis 09/19/2021 Seeing pain management Cervical spondylosis without myelopathy 09/27/2021 Cervical stenosis of spinal canal 09/19/2021 Chronic pain of left knee 06/19/2019 Class 1 obesity due to excess calories without serious comorbidity with body mass index (BMI) of 33.0 to 33.9 in adult 03/03/2018 Current use of proton pump inhibitor 03/03/2018 Diaphragmatic hernia without mention of obstruction or gangrene 02/05/2006 Elevated hemoglobin A1c 06/29/2018 Encounter for screening mammogram for breast cancer 03/05/2019 Ex-smoker 08/22/2015 Started at age 14 and has smoked up to 1/2 a PPD, quit 12/2017 External hemorrhoids without mention of complication Gastroesophageal reflux disease with esophagitis 08/22/2015 Gastroparesis 01/30/2023 Hearing loss Hearing aids in both ears. Hiatal hernia 02/19/2023 small History of transient ischemic attack (TIA) 11/05/2019 Incontinence 02/20/[address] Jordan Irritable bowel syndrome with constipation 03/03/2018 Lactose intolerance 03/05/2019 Living will on file at physician's office 04/02/2023 DPA: John () Lung nodules 12/11/2017 CT 12/11/[address] 05/2018 stable needs repeat in 2 yrs Medicare annual wellness visit, subsequent 03/03/2018 Medicare Part B: 06/17/2001 last done: 03/05/2019 Migraine without aura and without status migrainosus, not intractable 05/22/2016 Mixed hyperlipidemia 08/22/2015 JORDAN (obstructive sleep apnea) 09/02/2018 DME DASCO Osteopenia of lumbar spine 11/27/2020 Borderline on DXA 11/2020 Other constipation 07/21/2019 Overactive bladder 05/30/2015 Personal history of fibromyalgia 06/17/2023 Patient mentions this at appt on 06/17/2023 Primary insomnia 07/30/2018 Primary osteoarthritis of left knee 11/05/2019 RLS (restless legs syndrome) 06/04/2019 S/P total knee arthroplasty, left 10/18/2020 Smoker 08/22/2015 Started at age 14 and has smoked up to 1/2 a PPD, quit 12/2017 Thoracic arthritis 03/05/2022 Mild Vitamin D deficiency 01/25/2020 Past Surgical History: PAST SURGICAL HISTORY Procedure Laterality Date 48 HOUR PH STUDY 02/19/2023 Dr. Domínguez ARTHROSCOPY KNEE DIAGNOSTIC W/WO SYNOVIAL BX SPX Left ARTHRS KNE SURG W/MENISCECTOMY MED/LAT W/SHVG Left 12/01/2019 COLONOSCOPY 02/28/2009 COLONOSCOPY 02/04/2018 COLONOSCOPY 08/11/2019 one polyp, repeat 10 yrs COLONOSCOPY 12/10/2022 Hyperplastic rectal polyp CYSTOURETHROSCOPY 10/05/2015 EGD WITH BIOPSY(S) 02/05/2006 EGD WITH BIOPSY(S) 12/21/2014 EGD WITH BIOPSY(S) 03/29/2015 (more content not included)... [facility] 08-28-2023 Miscellaneous Notes August 29, 2023 PID: [id number] Chanda Haq [address] [id number] Dear Ms. Haq, We are pleased to inform you that the results of your recent breast imaging exam on 08/28/2023 are normal. Your mammogram demonstrates that you have dense breast tissue, which could hide abnormalities. Dense breast tissue, in and of itself, is a relatively common condition. Therefore, this information is not provided to cause undue concern; rather, it is to raise your awareness and promote discussion with your health care provider regarding the presence of dense breast tissue in addition to other risk factors. Early detection of cancer is very important. We also understand recommendations regarding breast cancer screening are controversial. Please discuss with your primary care provider which strategy is best for you and whether a mammogram is right for you. Your imaging studies and report will be kept on file at [facility] as part of your permanent medical record and are available for your continuing care. Thank you for allowing us to help in meeting your health care needs. Sincerely, Dr. Jones Interpreting Radiologist [facility] (Normal over 40) documented in this encounter [facility] 08-28-2023 Note [facility] 08-28-2023 History of Present illness Narrative Radiology Service Progress Note PATIENT NAME: Chanda Haq DATE OF SERVICE: August 28, 2023 TIME: 7:51 AM PATIENT IDENTITY VERIFICATION COMPLETED USING TWO (2) IDENTIFIERS: Name and Date of confirmed by patient verbally. FALL SCREENING: Has the patient had 2 falls in the last year or 1 fall with injury or currently using an Ambulatory Assistive Device (Walker, Cane, Wheelchair, Crutches, etc.)? Yes, Patient High Risk for Falls What interventions were put in place to prevent falls during this visit? Increased Observations by Caregivers PATIENT GENDER DATA: Female. status: : No status: NO. PATIENT RELEVANT IMPLANT DATA REVIEWED: Not Applicable RADIOLOGY DEPARTMENT: Mammography PERIPHERAL IV DATA: Not applicable SIGNED BY: Felipe Hwang August 28, 2023 7:51 AM documented in this encounter [facility] 08-15-2023 Note [facility] 08-15-2023 History of Present illness Narrative Images from the original note were not included. 07/23/2023 PROMIS Global Health Physical Health Summary Physical health: Fair Everyday physical activity, ability: A little Fatigue: Severe Pain level: 7 General health: Fair Social activities/roles, ability: Fair Physical Health T-Score (Poor) Physical Health Percentile PROMIS Global [facility] Mental Health Summary Quality of life: Fair Mental health (mood,thinking): Fair Social satisfaction: Fair Emotional problems (anxious,depressed): Sometimes Mental Health T-Score (Fair) Mental Health Percentile PHQ-9 Score: (Mild Depression) PHQ-9 Self-Harm: PROMIS PHYSICAL FUNCTION SCORE 09/22/2022 08/25/2022 04/10/2022 Promis Physical Function Percentile 18* 16* 18* PROMIS PAIN INTERFERENCE SCORE 08/25/2022 03/13/2022 10/23/2021 Promis Pain Interference Percentile 14 8 12 Percentiles provide an indication of how a patient's score ranks in relation to the [place] general population. > 31st percentile is within normal limits or better *< 31st percentile is at least SD worse than population, which may be clinically relevant < 16th percentile is at least 1 SD worse than population and warrants attention 08/08/2023 Sleep Apnea Probability Snores loudly: No Tired, fatigued or sleepy in daytime: Yes Stops breathing or choking/gasping during sleep: Yes High blood pressure: No Sleep Apnea Probability Score: 35 (Sleep study not recommended) NEW PATIENT (CONSULT) HISTORY AND PHYSICAL EXAM PRIMARY CARE PHYSICIAN: Kyle Sylvester MD REASON FOR CONSULT: See below REFERRING PHYSICIAN: Kyle Sylvester MD CHIEF COMPLAINT: Im tired Consultation requested by Kyle Sylvester MD for an opinion regarding chief complaint of Patient presents with: New Patient: Pt reported fatigue, balance issues, unsteady, last fall x8 mths prior. and my final recommendations will be communicated back to the requesting physician by way of shared medical record or letter via [place] mail. HISTORY OF PRESENT ILLNESS: Chanda Haq is a 63 year old female, BMI 31.86 kg/m2 with a PMH significant for and Per office visit with PCP on 06/17/23: Office visit - fatigue/weakness Hair falling out; fatigue; muscle weakness and memory loss. Patient had surgery on for her paraesophageal hernia and was feeling pretty good but has been having constipation and stomach bloating. Still on liquid diet trying to phase into to food. Patient has a f/u with surgeon on 08/28/2023. Seeing Chiropractor for her neck. With further discussion patient claims to have been told in the past she has Fibro but there has been no documentation of this in her problem list or past med Hx. Claims she discussed with Rheum and told it may just be aging related. Continue to feel fatigue and generalized muscle weakness. Office visit - hair loss; fatigue 06/11/2023 Patient states she just feels crummy . She reached out and asked for thyroid lab but that came back normal. She states she doesn't have any energy, she feels like her hair is falling out. Has been struggling with weakness. Pt states she no longer has sleep apnea but has a sleep disorder and only sleeps 4 hours a night. Review of sleep study from 06/2023 showed RDI of 5.8 and AHI of 2.8. Note pt on PAP in past and did not find it any better and was ripping it off during the night. Pt states goes to bed about 930-10PM, and takes meds and falls asleep instantly. Only sleep aid pt reports is gabapentin. Then sleeps for about 4-5 hours. States does not dream enough to go into REM sleep. Pt then states she is following with Dr. Coreas. States was seeing Dr. Coreas because she wanted [facility]. Pt states that Dr. Coreas told her if she is comfortable sleeping only 4-5 hours then that is enough. Pt adamant that she is not breathing at night. She states brain is telling her body that she is not breathing. Pt with limited understanding of results of sleep study. States Dr. Coreas told her something else that she should be moving in her sleep and that the small cells in her brain are being depleted. Note that I do not have any of these records for review. States she is no longer seeing Dr. Coreas as she told her there is nothing to see me for . MRI brain completed on 04/03/23 (reviewed and agree with rad report): No acute intracranial findings. 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 Pt stats having ministrokes. Explained changes on MRI brain. Pt with HLD and DM per pt likely cause of this. Regarding ministrokes, states last was 11 months ago when she saw a double yellow line on the road moving. States another time was lying on the couch and room was spinning. Note I cannot find any record of these ER/hospital evaluations in [facility]. States Dr. Sylvester told her that was a mini stroke but then states she never told Dr. Sylvester about this. Pt cannot maintain focus during interview. When asked what her biggest concern is, states that she is falling. States fall last year and the beginning of this year. The first of these was associated with pt hitching dog up to his run and fell backwards per pt. States once on ground cannot get self back up due to total knee replacement. The other fall, pt fell off steps and rolled and I hurt myself pretty bad . Patient is wearing a neck brace and states she has bad arthritis in her neck. States she has ablations and injections with no help and under behavioral health care coordinator for her neck in [place]. Pt sees pain mgmt Dr. Mejia. 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 The cord is draped over the kyphotic curvature, but there is otherwise no substantive canal or foraminal narrowing. Other general findings as noted. She cannot tell me if she has ever seen a compensation specialist. EMG 08/05/22: Pt also adds that she has floppy ankles. Rheum note from 06/12/23: 62 year old female with chronic pain, was noted to have positive REBA, dsDNA, RF. Patient has severe osteoarthritis of several joints as seen on her x-rays. She has had left knee replacement. She has underwent several treatment procedures to help with neck pain and back pain however has not found much relief. She is currently on several medications to help with pain. Patient is wide awake during the day despite only 5 hours. When I tell pt that may only be what she needs, she then states I can't function , and I am tired. REVIEW OF SYSTEMS GENERAL:No weight loss, malaise or fevers. HEENT:Negative for frequent or significant headaches, No changes in hearing or vision, no nose bleeds or other nasal problems NECK:Negative for lumps, goiter, pain and significant neck swelling RESPIRATORY: Negative for cough, wheezing or shortness of breath. CARDIOVASCULAR: Negative for chest pain, leg swelling or palpitations. GASTROINTESTINAL: Negative for abdominal discomfort, blood in stools or black stools or change in bowel habits GENITOURINARY: No history of dysuria, frequency or incontinence MUSCULOSKELETAL: Negative for joint pain or swelling, back pain or muscle pain. NEUROLOGIC:Negative for focal numbness or weakness, headaches and dizziness or syncope, vision changes, speech/language changes, changes in gait or falls -- besides those complaints as above in HPI. SKIN:Negative for lesions, rash, and itching. LAB/IMAGING: Reviewed and include: WBC (k/uL) Date Value 06/11/2023 6.41 RBC (m/uL) Date Value 06/11/2023 4.19 Hemoglobin (g/dL) Date Value 06/11/2023 12.0 Hematocrit (%) Date Value 06/11/2023 38.7 MCV (fL) Date Value 06/11/2023 92.4 MCH (pg) Date Value 06/11/2023 28.6 MCHC (g/dL) Date Value 06/11/2023 31.0 RDW-CV (%) Date Value 06/11/2023 14.0 Platelet Count (k/uL) Date Value 06/11/2023 309 MPV (fL) Date Value 06/11/2023 11.5 Glucose (mg/dL) Date Value 08/01/2023 116 (H) BUN (mg/dL) Date Value 08/01/2023 16 Creatinine (mg/dL) Date Value 08/01/2023 0.85 Sodium (mmol/L) Date Value 08/01/2023 141 Potassium (mmol/L) Date Value 08/01/2023 3.8 Chloride (mmol/L) Date Value 08/01/2023 105 CO2 (mmol/L) Date Value 08/01/2023 24 Protein, Total (g/dL) Date Value 08/01/2023 6.9 Albumin (g/dL) Date Value 08/01/2023 4.4 Calcium, Total (mg/dL) Date Value 08/01/2023 9.5 Alkaline Phosphatase (U/L) Date Value 08/01/2023 75 Bilirubin, Total (mg/dL) Date Value 08/01/2023 <0.2 (L) AST (U/L) Date Value 08/01/2023 19 ALT (U/L) Date Value 08/01/2023 16 REBA (no units) Date Value 10/01/2022 Positive (A) SSA Antibody IgG (AI) Date Value 10/01/2022 0.6 SSB Antibody (AI) Date Value 10/01/2022 <0.2 Rheumatoid Factor (IU/mL) Date Value 10/01/2022 43 (H) Hep C Antibody IA (no units) Date Value 09/26/2021 Negative MEDICATIONS: AMOXICILLIN, BULK, MISC FISH OIL-DHA-EPA ORAL Take by mouth. Daily blood sugar diagnostic (BLOOD GLUCOSE TEST) test strip Test blood sugar(s) 1 times daily. Dx: Other DM Code R73.09 Insulin: No Lancets lancets Test blood sugar(s) 1 times daily. Dx: Other DM Code R73.09 Insulin: No Fenofibrate (LOFIBRA) 54 mg tablet Take 1 tablet by mouth once daily. metFORMIN ER (GLUCOPHAGE XR) 500 mg 24 hr tablet Take 1 tablet by mouth daily with breakfast. albuterol HFA (PROVENTIL HFA, VENTOLIN HFA) 90 mcg/actuation inhaler Inhale 2 Puffs as instructed every 4 hours as needed for wheezing/shortness of breath. gabapentin (NEURONTIN) 600 mg tablet Take 1 tablet by mouth three times daily for 90 days. (Patient taking differently: Take 600 mg by mouth three times a day. Take only 400 mg at bedtime.) ezetimibe (ZETIA) 10 mg tablet Take 1 tablet by mouth once daily. levothyroxine (SYNTHROID) 137 mcg tablet Take one daily and two on Friday. rOPINIRole (REQUIP) 1 mg tablet Take one tab by mouth before bed. Food Supplement, Lactose-Free (PROMOTE, OSMOLITE, TWO FABIENNE, ENSURE PLUS, ENLIVE) liqd Take 237 mL by mouth three times daily with meals. plecanatide (TRULANCE) 3 mg tablet Take 1 tablet (3 mg) by mouth once daily. rosuvastatin (CRESTOR) 40 mg tablet Take 1 tablet by mouth daily at bedtime. tiZANidine (ZANAFLEX) 4 mg tablet TAKE 1 PILL UP TO 3 TIMES PER DAY NEEDED FOR PAINFUL MUSCLE SPASMS topiramate (TOPAMAX) 100 mg tablet Take 1 tablet by mouth twice daily. rimegepant (NURTEC ODT) 75 mg disintegrating tablet Take 1 tablet by mouth once daily as needed. cyanocobalamin (VITAMIN B-12) 1,000 mcg tab Take 1 tablet by mouth once daily. ARIPiprazole (ABILIFY) 15 mg tablet Take 15 mg by mouth once daily. amitriptyline (ELAVIL) 25 mg tablet Take 1 tablet by mouth daily at bedtime. aspirin, enteric coated (ASPIRIN, ENTERIC COATED) 81 mg EC tablet Take 81 mg by mouth every other day. lactase (LACTAID) 3,000 unit tablet Take 1 tablet by mouth three times daily with meals. acetaminophen (TYLENOL ARTHRITIS ORAL) Take 650 mg by mouth every 8 hours as needed. COMPOUNDED PRESCRIPTION Wheeled rolator walker with nd breaks and seat, # 1, Dx:M19.071, Z91.071 DULoxetine (CYMBALTA) 30 mg capsule Take 1 capsule by mouth once daily. [facility] pantoprazole [facility] (PROTONIX) 40 mg tablet Take 1 tablet by mouth twice daily. Take on empty stomach, 1/2 hr before meal. CPAP Mask fitting and 30 day download for autopap 10 -20 cm H2O & formal mask refitting for medical necessity & schedule with the RT, chin strap, head gear, humidity, heated tubing (SACHI), lifetime supplies. G47.33 JORDAN (Patient not taking: Reported on 08/15/2023) HISTORIES PAST MEDICAL HISTORY Diagnosis Date Acquired hypothyroidism 08/22/2015 ACUTE GASTRITIS W/O HEMORRHAGE 02/05/2006 Advance directive discussed with patient 04/02/2023 Discussed 03/2023: Up to date Anxiety and depression 10/05/2020 Arthritis 05/18/2020 Arthritis of lumbar spine 03/05/2022 Mod Arthritis of right foot 09/02/2018 At high risk for falls 09/02/2018 Backache, unspecified 01/11/2013 Bilateral carotid artery stenosis 09/25/202009/2020 20-40% bilaterally Bipolar I disorder (HCC) 12/20/2005 Se[facility] Stinger at [facility] Cervical disc disorder with radiculopathy 09/27/2021 Cervical radiculopathy 09/19/2021 Cervical spondylosis 09/19/2021 Seeing pain management Cervical spondylosis without myelopathy 09/27/2021 Cervical stenosis of spinal canal 09/19/2021 Chronic pain of left knee 06/19/2019 Class 1 obesity due to excess calories without serious comorbidity with body mass index (BMI) of 33.0 to 33.9 in adult 03/03/2018 Current use of proton pump inhibitor 03/03/2018 Diaphragmatic hernia without mention of obstruction or gangrene 02/05/2006 Elevated hemoglobin A1c 06/29/2018 Encounter for screening mammogram for breast cancer 03/05/2019 Ex-smoker 08/22/2015 Started at age 14 and has smoked up to 1/2 a PPD, quit 12/2017 External hemorrhoids without mention of complication Gastroesophageal reflux disease with esophagitis 08/22/2015 Gastroparesis 01/30/2023 Hearing loss Hearing aids in both ears. Hiatal hernia 02/19/2023 small History of transient ischemic attack (TIA) 11/05/2019 Incontinence 02/20/[address] Jordan Irritable bowel syndrome with constipation 03/03/2018 Lactose intolerance 03/05/2019 Living will on file at physician's office 04/02/2023 DPA: John () Lung nodules 12/11/2017 CT 12/11/[address] 05/2018 stable needs repeat in 2 yrs Medicare annual wellness visit, subsequent 03/03/2018 Medicare Part B: 06/17/2001 last done: 03/05/2019 Migraine without aura and without status migrainosus, not intractable 05/22/2016 Mixed hyperlipidemia 08/22/2015 JORDAN (obstructive sleep apnea) 09/02/2018 DME DASCO Osteopenia of lumbar spine 11/27/2020 Borderline on DXA 11/2020 Other constipation 07/21/2019 Overactive bladder 05/30/2015 Personal history of fibromyalgia 06/17/2023 Patient mentions this at appt on 06/17/2023 Primary insomnia 07/30/2018 Primary osteoarthritis of left knee 11/05/2019 RLS (restless legs syndrome) 06/04/2019 S/P total knee arthroplasty, left 10/18/2020 Smoker 08/22/2015 Started at age 14 and has smoked up to 1/2 a PPD, quit 12/2017 Thoracic arthritis 03/05/2022 Mild Vitamin D deficiency 01/25/2020 FAMILY HISTORY Problem Relation Age of Onset Cancer Mother Hysterectomy Alcohol/Drug Father Alcoholic other (Leukemia) Sister shortly after Heart Attack Brother x 2 Diabetes Brother Heart Maternal Grandmother Hearing Loss Maternal Grandmother Headache Maternal Grandmother Diabetes Maternal Grandmother Stroke Maternal Grandmother Heart Maternal Grandfather Diabetes Maternal Grandfather No Known Problems Paternal Grandmother No Known Problems Paternal Grandfather Coronary Artery Disease Son Hyperlipidemia Son Hypertension Son Hyperlipidemia Son No Known Problems Son Colon Cancer No Family History SOCIAL HISTORY Social History Tobacco Use Smoking status: Former Packs/day: 0.50 Years: 44.00 Additional pack years: 0.00 Total pack years: 22.00 Types: Cigarettes Quit date: 01/07/2018 Years since quittin.6 Smokeless tobacco: Never Tobacco comments: used welbutrin Vaping Use Vaping Use: Never used Substance Use Topics Alcohol use: No Drug use: No PHYSICAL EXAMINATION BP 103/71 Pulse 75 Resp 16 Wt 84.2 kg (185 lb 9.6 oz) SpO2 98% BMI 31.86 kg/m GENERAL EXAM: General appearance: NAD, flat affect. HEENT: NC/AT, nasal congestion absent, no oral lesions, membranes moist. NECK: Wearing soft collar that pt declines removal of. Lungs: CTA bilaterally. CV: RRR nl S1, S2. No carotid bruits. NEUROLOGICAL EXAM: General: Awake, alert, oriented x3 (person,place,time), speech fluent, no dysarthria; comprehension, naming, repetition intact. CN: PERRL, fundi without papilledema, EOMI and without nystagmus, VFF to confrontation, facial sensation and strength are normal and symmetric, hearing is intact to finger rub bilaterally, palate and tongue movements are intact and symmetric. SCM and trapezius strength symmetric. Motor: Normal tone, bulk and strength (5/5) bilaterally (throughout extremities x4). Reflexes: 1/4 and symmetric, plantar stimulation is flexor. Coordination: FNF, SHERWIN, HTS intact. No tremors. Sensation: Light touch and vibration intact throughout. No evidence of neglect. Gait: Stable with normal stride and arm swing. Assessment and Plan: ASSESSMENT/PLAN: 1. Generalized weakness - ICD9: 780.79, ICD10: R53.1 (primary diagnosis) 2. Balance problems - ICD9: 781.99, ICD10: R26.89 3. Cervicalgia - ICD9: 723.1, ICD10: M54.2 Patient with multiple complaints at today's visit. She is a limited historian, and often changes history during the interview (see above). As for falls, she has had 2 falls in 1+ years, both of which appeared to be mechanical. MRI brain since that time did not reveal an acute process to account for these findings, and while noted, suspect due to known risk factors of DM and HLD. While pt states she has had 2 strokes, these have not been confirmed nor is there evidence on MRI brain to suggest these occurred. Also unclear if TIA with pt not seeking immediately workup. Appears pt had stroke workup at some point as above but those records are not available for review. Her neuro exam today is non focal. Gait not limited but pt does complaint of knee pain during testing. Prior C spine imaging shows changes above but already following with spine and pain and chiropractor. EMG/NCV as above also reported as unremarkable. At this time feel no additional neuro workup needed. I would however recommend follow up with Rheum and ortho regarding joint complaints. 4. UARS (upper airway resistance syndrome) - ICD9: 327.8, ICD10: G47.8 Pt with prior history of JORDAN, but most recent testing showing UARS as above. Pt initially states she cannot sleep because she stops breathing and it wakes her up. Yet PAP, when using provided no relief. I did offer her a repeat PSG due to possible night to night variability. Patient then states she does not stop breathing at night and declines repeat study. No additional recs with pt stating she wants no further evaluation or treatment. 5. Insomnia, unspecified type - ICD9: 780.52, ICD10: G47.00 Sleeping 5 hours nightly. Initially states awake during the day. Then states sleepy during the day. Unclear etiology of insomnia and with patient already established with Dr. Coreas who is a sleep and psychiatry specialist, and history of [place], Anxiety and Depression likely contributing to insomnia if in fact present, recommend follow up with Dr. Coreas. Not if daytime sleepiness present, may also be due to other medical conditions and multiple meds that could cause sedation including muscle relaxants, Reqiup, Gabapentin and Topamax. Loc Hoffman MD I spent a total of 45 minutes on the date of the service which included preparing to see the patient, [id number] patient care, completing clinical documentation, obtaining and/or reviewing separately obtained history, performing a medically appropriate examination, counseling and educating the patient/family/caregiver, ordering medications, tests, or procedures, independently interpreting results (not separately reported), and communicating results to the patient/family/caregiver. Medical Decision Making: Problems: Moderate: 1+ chronic illnesses with change and New problem with uncertain prognosis Data: Unique test result(s) reviewed: 3+ Medical Decision Making Level: 4 - Moderate documented in this encounter [facility] 08-11-2023 Note HNO ID: [id number] Author: Kit Linares RT(R) Service: Nuclear Medicine Author Type: Technologist Type: Progress Notes Filed: 08/11/2023 8:33 AM Note Text: RADIOLOGY SERVICE PROGRESS NOTE SERVICE DATE: 08/11/2023 SERVICE TIME: 8:29 AM PATIENT IDENTITY VERIFICATION COMPLETED USING TWO (2) STANDARD IDENTIFIERS: Name and Date of confirmed by patient verbally FALL SCREENING: Has the patient had 2 falls in the last year or 1 fall with injury or currently using an Ambulatory Assistive Device (Walker, Cane, Wheelchair, Crutches, etc.)? No PATIENT GENDER DATA: .female : No ALLERGIES: Reviewed and unchanged MEDICATIONS REVIEWED: No PATIENT RELEVANT IMPLANT DATA REVIEWED: Not Applicable CREATININE: Creatinine Date Value Ref Range Status 08/01/2023 0.85 0.58 - 0.96 mg/dL Final 06/11/2023 0.88 0.58 - 0.96 mg/dL Final 05/10/2023 0.67 0.58 - 0.96 mg/dL Final Estimated Glomerular Filtration Rate Date Value Ref Range Status 08/01/2023 76 >=60 mL/min/1.73m? Final Comment: Estimated Glomerular Filtration Rate (eGFR) is calculated using the 2020 CKD-EPI creatinine equation. This equation utilizes serum creatinine, sex, and age as parameters. The creatinine assay has traceable calibration to isotope dilution-mass spectrometry. Refer to KDIGO guidelines for clinical interpretation. In patients with unstable renal function, e.g. those with acute kidney injury, the eGFR may not accurately reflect actual GFR. eGFR- Date Value Ref Range Status 10/08/2021 >60 Final Comment: Note: On 01/12/2022, the eGFR calculation will be updated to the NKF-ASN Task Force recommended 2020 CKD-EPI creatinine equation which does not include a race variable. For more information or to access a 2020 CKD-EPI calculator, visit the National Kid[employer] website at kidney.org/professionals/kdoqi/gfr_cal culator. P.O.C.T. RESULTS: N/A August 11, [address] PERFORMED: No IV SITE: NM only - not applicable, oral or physician administered agents given to patient POST EXAM PIV STATUS: Not applicable PROCEDURE TYPE: NM GET: 1.02 mCi Tc99m SULFUR COLLOID was administered orally via 4 ounces of Egg Beaters,2 pieces of toast, 1 ounce of jelly with 8 ounces of water orally ADMINISTRATION TIME: 835 PATIENT DISCHARGED TO: Ambulatory patient, left [place] department area. A Diagnostic radioactive procedure has taken place, with no further precautions necessary other than routine body substance precautions. More information regarding radiation safety can be found using this link: [email or web address]%20Nuclear%20Medicine %[email or web address] SIGNATURE: RT Praful(R) PATIENT NAME: Chanda Haq DATE: August 11, 2023 TIME: 8:29 AM PAGER/CONTACT #: [facility] 08-11-2023 History of Present illness Narrative RADIOLOGY SERVICE PROGRESS NOTE SERVICE DATE: 08/11/2023 SERVICE TIME: 8:29 AM PATIENT IDENTITY VERIFICATION COMPLETED USING TWO (2) STANDARD IDENTIFIERS: Name and Date of confirmed by patient verbally FALL SCREENING: Has the patient had 2 falls in the last year or 1 fall with injury or currently using an Ambulatory Assistive Device (Walker, Cane, Wheelchair, Crutches, etc.)? No PATIENT GENDER DATA: .female : No ALLERGIES: Reviewed and unchanged MEDICATIONS REVIEWED: No PATIENT RELEVANT IMPLANT DATA REVIEWED: Not Applicable CREATININE: Creatinine Date Value Ref Range Status 08/01/2023 0.85 0.58 - 0.96 mg/dL Final 06/11/2023 0.88 0.58 - 0.96 mg/dL Final 05/10/2023 0.67 0.58 - 0.96 mg/dL Final Estimated Glomerular Filtration Rate Date Value Ref Range Status 08/01/2023 76 >=60 mL/min/1.73m Final Comment: Estimated Glomerular Filtration Rate (eGFR) is calculated using the 2020 CKD-EPI creatinine equation. This equation utilizes serum creatinine, sex, and age as parameters. The creatinine assay has traceable calibration to isotope dilution-mass spectrometry. Refer to KDIGO guidelines for clinical interpretation. In patients with unstable renal function, e.g. those with acute kidney injury, the eGFR may not accurately reflect actual GFR. eGFR- Date Value Ref Range Status 10/08/2021 >60 Final Comment: Note: On 01/12/2022, the eGFR calculation will be updated to the NKF-ASN Task Force recommended 2020 CKD-EPI creatinine equation which does not include a race variable. For more information or to access a 2020 CKD-EPI calculator, visit the National Kidney Foundation website at kidney.org/professionals/kdoqi/gfr_cal culator. P.O.C.T. RESULTS: N/A August 11, [address] PERFORMED: No IV SITE: NM only - not applicable, oral or physician administered agents given to patient POST EXAM PIV STATUS: Not applicable PROCEDURE TYPE: NM GET: 1.02 mCi Tc99m SULFUR COLLOID was administered orally via 4 ounces of Egg Beaters,2 pieces of toast, 1 ounce of jelly with 8 ounces of water orally ADMINISTRATION TIME: 835 PATIENT DISCHARGED TO: Ambulatory patient, left [place] department area. A Diagnostic radioactive procedure has taken place, with no further precautions necessary other than routine body substance precautions. More information regarding radiation safety can be found using this link: [email or web address] 20-%20Diagnostic%20Nuclear%20Medicine% 20Procedures.pdf SIGNATURE: RT Praful(R) PATIENT NAME: Chanda Haq DATE: August 11, 2023 TIME: 8:29 AM PAGER/CONTACT #: documented in this encounter [facility] 08-06-2023 Note [facility] 08-06-2023 History of Present illness Narrative This note was created using [employer]. Subjective Chanda Haq is a 63 year old female. HPI Patient presents with sinus pressure and congestion over the past 12 days. She was seen 5 days ago and put on doxycycline for sinusitis. She states she really had not noticed any improvement with it other than her cough has improved. She denies chest pain or shortness of breath. She has been using Flonase. Her ears feel full. She has pressure in her forehead. No fever recently. No home COVID test done. No diarrhea or vomiting. Review of Systems Constitutional: Negative. HENT: Positive for congestion, ear pain, postnasal drip, rhinorrhea, sinus pressure and sinus pain. Respiratory: Positive for cough. Negative for shortness of breath and wheezing. Cardiovascular: Negative. Gastrointestinal: Negative. Genitourinary: Negative. Musculoskeletal: Negative. All other systems reviewed and are negative. PAST MEDICAL HISTORY Diagnosis Date Acquired hypothyroidism 08/22/2015 ACUTE GASTRITIS W/O HEMORRHAGE 02/05/2006 Advance directive discussed with patient 04/02/2023 Discussed 03/2023: Up to date Anxiety and depression 10/05/2020 Arthritis 05/18/2020 Arthritis of lumbar spine 03/05/2022 Mod Arthritis of right foot 09/02/2018 At high risk for falls 09/02/2018 Backache, unspecified 01/11/2013 Bilateral carotid artery stenosis 09/25/202009/2020 20-40% bilaterally Bipolar I disorder (HCC) 12/20/2005 Seeds Stinger at [facility] Cervical disc disorder with radiculopathy 09/27/2021 Cervical radiculopathy 09/19/2021 Cervical spondylosis 09/19/2021 Seeing pain management Cervical spondylosis without myelopathy 09/27/2021 Cervical stenosis of spinal canal 09/19/2021 Chronic pain of left knee 06/19/2019 Class 1 obesity due to excess calories without serious comorbidity with body mass index (BMI) of 33.0 to 33.9 in adult 03/03/2018 Current use of proton pump inhibitor 03/03/2018 Diaphragmatic hernia without mention of obstruction or gangrene 02/05/2006 Elevated hemoglobin A1c 06/29/2018 Encounter for screening mammogram for breast cancer 03/05/2019 Ex-smoker 08/22/2015 Started at age 14 and has smoked up to 1/2 a PPD, quit 12/2017 External hemorrhoids without mention of complication Gastroesophageal reflux disease with esophagitis 08/22/2015 Gastroparesis 01/30/2023 Hearing loss Hearing aids in both ears. Hiatal hernia 02/19/2023 small History of transient ischemic attack (TIA) 11/05/2019 Incontinence 02/20/[address] Jordan Irritable bowel syndrome with constipation 03/03/2018 Lactose intolerance 03/05/2019 Living will on file at physician's office 04/02/2023 DPA: John () Lung nodules 12/11/2017 CT 12/11/[address] 05/2018 stable needs repeat in 2 yrs Medicare annual wellness visit, subsequent 03/03/2018 Medicare Part B: 06/17/2001 last done: 03/05/2019 Migraine without aura and without status migrainosus, not intractable 05/22/2016 Mixed hyperlipidemia 08/22/2015 JORDAN (obstructive sleep apnea) 09/02/2018 DME DASCO Osteopenia of lumbar spine 11/27/2020 Borderline on DXA 11/2020 Other constipation 07/21/2019 Overactive bladder 05/30/2015 Personal history of fibromyalgia 06/17/2023 Patient mentions this at appt on 06/17/2023 Primary insomnia 07/30/2018 Primary osteoarthritis of left knee 11/05/2019 RLS (restless legs syndrome) 06/04/2019 S/P total knee arthroplasty, left 10/18/2020 Smoker 08/22/2015 Started at age 14 and has smoked up to 1/2 a PPD, quit 12/2017 Thoracic arthritis 03/05/2022 Mild Vitamin D deficiency 01/25/2020 Current Outpatient Medications Medication Sig Dispense Refill doxycycline (VIBRA-TABS) 100 mg tablet Take 1 tablet by mouth twice daily for 7 days. 14 tablet 0 FISH OIL-DHA-EPA ORAL Take by mouth. Daily blood sugar diagnostic (BLOOD GLUCOSE TEST) test strip Test blood sugar(s) 1 times daily. Dx: Other DM Code R73.09 Insulin: No 50 Strip 11 Lancets lancets Test blood sugar(s) 1 times daily. Dx: Other DM Code R73.09 Insulin: No 100 Each 11 Fenofibrate (LOFIBRA) 54 mg tablet Take 1 tablet by mouth once daily. 30 tablet 5 metFORMIN ER (GLUCOPHAGE XR) 500 mg 24 hr tablet Take 1 tablet by mouth daily with breakfast. 30 tablet 11 albuterol HFA (PROVENTIL HFA, VENTOLIN HFA) 90 mcg/actuation inhaler Inhale 2 Puffs as instructed every 4 hours as needed for wheezing/shortness of breath. 18 g 1 gabapentin (NEURONTIN) 600 mg tablet Take 1 tablet by mouth three times daily for 90 days. (Patient taking differently: Take 600 mg by mouth three times daily. Take only 400 mg at bedtime.) 90 tablet 2 ezetimibe (ZETIA) 10 mg tablet Take 1 tablet by mouth once daily. 90 tablet 1 levothyroxine (SYNTHROID) 137 mcg tablet Take one daily Fri-Fri and two on Friday. 34 tablet 5 rOPINIRole (REQUIP) 1 mg tablet Take one tab by mouth before bed. 90 tablet 1 Food Supplement, Lactose-Free (PROMOTE, OSMOLITE, TWO FABIENNE, ENSURE PLUS, ENLIVE) liqd Take 237 mL by mouth three times daily with meals. 06221 mL 3 plecanatide (TRULANCE) 3 mg tablet Take 1 tablet (3 mg) by mouth once daily. 60 tablet 2 rosuvastatin (CRESTOR) 40 mg tablet Take 1 tablet by mouth daily at bedtime. 90 tablet 1 tiZANidine (ZANAFLEX) 4 mg tablet TAKE 1 PILL UP TO 3 TIMES PER DAY NEEDED FOR PAINFUL MUSCLE SPASMS 90 tablet 5 topiramate (TOPAMAX) 100 mg tablet Take 1 tablet by mouth twice daily. 60 tablet 5 rimegepant (NURTEC ODT) 75 mg disintegrating tablet Take 1 tablet by mouth once daily as needed. 8 tablet 5 cyanocobalamin (VITAMIN B-12) 1,000 mcg tab Take 1 tablet by mouth once daily. 90 tablet 1 ARIPiprazole (ABILIFY) 15 mg tablet Take 15 mg by mouth once daily. amitriptyline (ELAVIL) 25 mg tablet Take 1 tablet by mouth daily at bedtime. 90 tablet 3 aspirin, enteric coated (ASPIRIN, ENTERIC COATED) 81 mg EC tablet Take 81 mg by mouth every other day. CPAP Mask fitting and 30 day download for autopap 10 -20 cm H2O & formal mask refitting for medical necessity & schedule with the RT, chin strap, head gear, humidity, heated tubing (SACHI), lifetime supplies. G47.33 JORDAN lactase (LACTAID) 3,000 unit tablet Take 1 tablet by mouth three times daily with meals. 90 tablet 5 acetaminophen (TYLENOL ARTHRITIS ORAL) Take 650 mg by mouth every 8 hours as needed. COMPOUNDED PRESCRIPTION Wheeled rolator walker with nd breaks and seat, # 1, Dx:M19.071, Z91.071 1 Device 1 DULoxetine (CYMBALTA) 30 mg capsule Take 1 capsule by mouth once daily. [facility] amoxicillin-clavulanic acid (AUGMENTIN) 875-125 mg per tablet Take 1 tablet by mouth twice daily for 7 days. [address] (PROTONIX) 40 mg tablet Take 1 tablet by mouth twice daily. Take on empty stomach, 1/2 hr before meal. 180 tablet 2 No current facility-administered medications for this visit. PAST SURGICAL HISTORY Procedure Laterality Date 48 HOUR PH STUDY 02/19/2023 Dr. Domínguez ARTHROSCOPY KNEE DIAGNOSTIC W/WO SYNOVIAL BX SPX Left ARTHRS KNE SURG W/MENISCECTOMY MED/LAT W/SHVG Left 12/01/2019 COLONOSCOPY 02/28/2009 COLONOSCOPY 02/04/2018 COLONOSCOPY 08/11/2019 one polyp, repeat 10 yrs COLONOSCOPY 12/10/2022 Hyperplastic rectal polyp CYSTOURETHROSCOPY 10/05/2015 EGD WITH BIOPSY(S) 02/05/2006 EGD WITH BIOPSY(S) 12/21/2014 EGD WITH BIOPSY(S) 03/29/2015 EGD WITH BIOPSY(S) 03/24/2018 Dr. Garcia reported as normal. Neg for Hpylori and celiac. EGD WITH BIOPSY(S) 12/10/2022 Mild nonspecific inflammation in stomach EGD WITH BIOPSY(S) 02/19/2023 small hiatal hernia; Dr. Domínguez EXC/DSTRJ LINGUAL TONSIL ANY METHOD SPX remote MANOMETRY ESOPHAGEAL 02/19/2023 Dr. Britt PAST SURGICAL HISTORY OF 10/05/2015 TOT monarc sling PAST SURGICAL HISTORY OF Left 05/03/2016 ulnar nerve decompression PER ORAL PYLOROMYOTOMY (POP) PROCEDURE (COMP 11692) 05/08/2023 Dr. Domínguez TOTAL KNEE REPLACEMENT Left 10/18/2020 FAMILY HISTORY Problem Relation Age of Onset Cancer Mother Hysterectomy Alcohol/Drug Father Alcoholic other (Leukemia) Sister shortly after Heart Attack Brother x 2 Diabetes Brother Heart Maternal Grandmother Hearing Loss Maternal Grandmother Headache Maternal Grandmother Diabetes Maternal Grandmother Stroke Maternal Grandmother Heart Maternal Grandfather Diabetes Maternal Grandfather No Known Problems Paternal Grandmother No Known Problems Paternal Grandfather Coronary Artery Disease Son Hyperlipidemia Son Hypertension Son Hyperlipidemia Son No Known Problems Son Colon Cancer No Family History Social History Tobacco Use Smoking status: Former Packs/day: 0.50 Years: 44.00 Additional pack years: 0.00 Total pack years: 22.00 Types: Cigarettes Quit date: 01/07/2018 Years since quittin.5 Smokeless tobacco: Never Tobacco comments: used welbutrin Vaping Use Vaping Use: Never used Substance Use Topics Alcohol use: No Drug use: No Objective BP 112/72 Pulse 70 Temp 36.7 C (98.1 F) (Tympanic) Resp 18 Wt 84.6 kg (186 lb 6.4 oz) SpO2 96% BMI 32.00 kg/m Physical Exam Vitals reviewed. Constitutional: Appearance: Normal appearance. HENT: Head: Normocephalic and atraumatic. Right Ear: Tympanic membrane, ear canal and external ear normal. Left Ear: Tympanic membrane, ear canal and external ear normal. Nose: Congestion present. Right Sinus: Frontal sinus tenderness present. No maxillary sinus tenderness. Left Sinus: Frontal sinus tenderness present. No maxillary sinus tenderness. Mouth/Throat: Mouth: Mucous membranes are moist. Pharynx: Oropharynx is clear. Cardiovascular: Rate and Rhythm: Normal rate and regular rhythm. Heart sounds: Normal heart sounds. Pulmonary: Effort: Pulmonary effort is normal. Breath sounds: Normal breath sounds. Musculoskeletal: Cervical back: Neck supple. Lymphadenopathy: Cervical: No cervical adenopathy. Skin: General: Skin is warm and dry. Findings: No rash. Neurological: General: No focal deficit present. Mental Status: She is alert. Assessment and Plan ASSESSMENT/PLAN: 1. Acute frontal sinusitis, recurrence not specified - ICD9: 461.1, ICD10: J01.10 Discussed that this all could still be viral and that is why she is not improving on the doxycycline. Recommended she finish the course of doxycycline if not improving in the next 2 to 3 days I did provide her with Augmentin however discussed only if she is not improving. She was agreeable with plan. Lia Winkler PA-C documented in this encounter [facility] 08-01-2023 Note [facility] 07-30-2023 Note [facility] 07-28-2023 Note [facility] 07-28-2023 History of Present illness Narrative Pt has appt 07/30/23 for 3 month follow up. ER report below: Scan on 07/26/2023 10:46 PM by Provider, LIANA Cee: Consultation - Emergency Medicine documented in this encounter [facility] 07-14-2023 Note [facility] 07-14-2023 History of Present illness Narrative Radiology Service Progress Note PATIENT NAME: Chanda Haq DATE OF SERVICE: July 14, 2023 TIME: 3:50 PM PATIENT IDENTITY VERIFICATION COMPLETED USING TWO (2) IDENTIFIERS: Name and Date of confirmed by patient verbally. FALL SCREENING: Has the patient had 2 falls in the last year or 1 fall with injury or currently using an Ambulatory Assistive Device (Walker, Cane, Wheelchair, Crutches, etc.)? No PATIENT GENDER DATA: Female. status: : No status: NO. PATIENT RELEVANT IMPLANT DATA REVIEWED: Yes RADIOLOGY DEPARTMENT: CT; Exam(s) Completed: Chest PERIPHERAL IV DATA: Not applicable SIGNED BY: RT Abdulaziz(R) July 14, 2023 3:50 PM documented in this encounter [facility] 07-11-2023 Miscellaneous Notes The following approved medication requests have been transmitted electronically. Requested Prescriptions Signed Prescriptions Disp Refills Fenofibrate (LOFIBRA) 54 mg tablet 30 tablet 5 Sig: Take 1 tablet by mouth once daily. Authorizing Provider: KYLE SYLVESTER MD Patient phones requesting refills as follows: Requested Prescriptions Pending Prescriptions Disp Refills Fenofibrate (LOFIBRA) 54 mg tablet 30 tablet 5 Sig: Take 1 tablet by mouth once daily. [facility] 06/17/23 PK 07/30/23 PK Please review and advise. Kevin Cruz LPN documented in this encounter [facility] 07-10-2023 Miscellaneous Notes Last refill 05/17/22 Qty: 30 with 11 refills [facility] 06/17/23 NOV 07/30/23 Jennifer Nesbitt LPN documented in this encounter [facility] 07-08-2023 Note [facility] 07-08-2023 Instructions Coral Marino APRN.DATABASE SECURITY EXPERT - 07/08/2023 2:[address] Lung Screen Results The CT scan that you will have done will show if you have any nodules (small spots) in your lungs that are suspicious for cancer. Around 90% of the patients who have this scan done are found to have at least one nodule. Most nodules are benign (not cancer) and of no harm to you at all. A specialist will make a scientific evaluation about whether or not a nodule is worrisome based on its size and shape. The radiologist who will read your scan will put it into one of four categories: LUNG-RADS Category Description Overall Probability of Malignancy Recommended Follow-Up 1 Negative No nodules and definitely benign (non-cancerous nodules) Essentially 0. 1 Year - Follow-up Low dose CT 2 Benign Appearance or Behavior Nodules with a very low likelihood of becoming cancer due to size or lack of growth Less than 1% 1 Year - Follow-up Low dose CT 3 Probably Benign Probably benign finding, short term follow-up recommended 1 to 2% 6 Months - Follow-up CT 4 A,B,or X Suspicious Findings for which additional diagnostic testing and/or biopsy is recommended Will be calculated based on nodule characteristics. Dependent on what is seen on the exam. [address], PET, Biopsy At times, we may see something outside of the lungs on the scan that could be a health concern. Below are some of the most common findings: S Clinically Significant or Potentially Clinically Significant Findings (non lung cancer) Referral or additional imaging/labs depending on result. Approximately 10% of people receive this result. Coronary Artery Calcifications (Moderate or Severe) - Referral to cardiology or PCP for further work-up and recommendations. Thyroid Nodule - TSH level and Thyroid Ultrasound dependent on size, referral to endocrinology. Adrenal Nodule - Blood work and referral to endocrinology. Others Lung Cancer Screening hotline: [phone] Lung Cancer Screening [phone] Billing Questions: or [email or web address] Lung Cancer Screening Team: Cindy Calderon CNP; Brenda Bateman PA-C; Ebonie Moss CNP; Catherine Paul CNP, Rhonda Guajardo PA-C, Dee Dee Ayon PA-C, Coral Marino, DATABASE SECURITY EXPERT : [phone] documented in this encounter [facility] 07-08-2023 History of Present illness Narrative Images from the original note were not included. LUNG SCREENING VISIT PRIMARY CARE PHYSICIAN: Kyle Sylvester MD PULMONARY PROVIDER: None Results will be communicated via letter or electronic record if applicable. Visit Delivery: In Person Patient Visit Type: New to Screening Current or Ex-smoker? ex smoker Exam Type: baseline LDCT Number of Pack Years: 22 Current smoker (=0) or Number of Years since Quit: 5 REQUESTER: The referring provider advised the patient to have screening. HISTORY OF PRESENT ILLNESS: Chanda Haq is a 63 year old Former smoker who presents for lung screening. Respiratory symptoms include: SOB: No Chest tightness: No Coughing: No Hemoptysis: No Wheezing: No Fever/Chills: No Recent Respiratory Infection: No Unintentional weight loss: No Last 6 Encounter Wt Readings: Date: Wt: 07/08/2023 85.7 kg (189 lb) 06/17/2023 85.3 kg (188 lb) 06/11/2023 84.4 kg (186 lb) 06/09/2023 85.5 kg (188 lb 9.6 oz) 05/08/2023 85.5 kg (188 lb 7.9 oz) 04/29/2023 88 kg (194 lb) ECOG PERFORMANCE STATUS: 0- Fully active, able to carry on all pre-disease performance w/o restriction. Modified Medical Research [place] Dyspnea Scale (MMRC) I only get breathless with strenous exercise 0 PAST MEDICAL HISTORY Diagnosis Date Acquired hypothyroidism 08/22/2015 ACUTE GASTRITIS W/O HEMORRHAGE 02/05/2006 Advance directive discussed with patient 04/02/2023 Discussed 03/2023: Up to date Anxiety and depression 10/05/2020 Arthritis 05/18/2020 Arthritis of lumbar spine 03/05/2022 Mod Arthritis of right foot 09/02/2018 At high risk for falls 09/02/2018 Backache, unspecified 01/11/2013 Bilateral carotid artery stenosis 09/25/202009/2020 20-40% bilaterally Bipolar I disorder (HCC) 12/20/2005 [facility] Cervical disc disorder with radiculopathy 09/27/2021 Cervical radiculopathy 09/19/2021 Cervical spondylosis 09/19/2021 Seeing pain management Cervical spondylosis without myelopathy 09/27/2021 Cervical stenosis of spinal canal 09/19/2021 Chronic pain of left knee 06/19/2019 Class 1 obesity due to excess calories without serious comorbidity with body mass index (BMI) of 33.0 to 33.9 in adult 03/03/2018 Current use of proton pump inhibitor 03/03/2018 Diaphragmatic hernia without mention of obstruction or gangrene 02/05/2006 Elevated hemoglobin A1c 06/29/2018 Encounter for screening mammogram for breast cancer 03/05/2019 Ex-smoker 08/22/2015 Started at age 14 and has smoked up to 1/2 a PPD, quit 12/2017 External hemorrhoids without mention of complication Gastroesophageal reflux disease with esophagitis 08/22/2015 Gastroparesis 01/30/2023 Hearing loss Hearing aids in both ears. Hiatal hernia 02/19/2023 small History of transient ischemic attack (TIA) 11/05/2019 Incontinence 02/20/[address] Jordan Irritable bowel syndrome with constipation 03/03/2018 Lactose intolerance 03/05/2019 Living will on file at physician's office 04/02/2023 DPA: John () Lung nodules 12/11/2017 CT 12/11/[address] 05/2018 stable needs repeat in 2 yrs Medicare annual wellness visit, subsequent 03/03/2018 Medicare Part B: 06/17/2001 last done: 03/05/2019 Migraine without aura and without status migrainosus, not intractable 05/22/2016 Mixed hyperlipidemia 08/22/2015 JORDAN (obstructive sleep apnea) 09/02/2018 DME DASCO Osteopenia of lumbar spine 11/27/2020 Borderline on DXA 11/2020 Other constipation 07/21/2019 Overactive bladder 05/30/2015 Personal history of fibromyalgia 06/17/2023 Patient mentions this at appt on 06/17/2023 Primary insomnia 07/30/2018 Primary osteoarthritis of left knee 11/05/2019 RLS (restless legs syndrome) 06/04/2019 S/P total knee arthroplasty, left 10/18/2020 Smoker 08/22/2015 Started at age 14 and has smoked up to 1/2 a PPD, quit 12/2017 Thoracic arthritis 03/05/2022 Mild Vitamin D deficiency 01/25/2020 PAST SURGICAL HISTORY Procedure Laterality Date 48 HOUR PH STUDY 02/19/2023 Dr. Domínguez ARTHROSCOPY KNEE DIAGNOSTIC W/WO SYNOVIAL BX SPX Left ARTHRS KNE SURG W/MENISCECTOMY MED/LAT W/SHVG Left 12/01/2019 COLONOSCOPY 02/28/2009 COLONOSCOPY 02/04/2018 COLONOSCOPY 08/11/2019 one polyp, repeat 10 yrs COLONOSCOPY 12/10/2022 Hyperplastic rectal polyp CYSTOURETHROSCOPY 10/05/2015 EGD WITH BIOPSY(S) 02/05/2006 EGD WITH BIOPSY(S) 12/21/2014 EGD WITH BIOPSY(S) 03/29/2015 EGD WITH BIOPSY(S) 03/24/2018 Dr. Garcia reported as normal. Neg for Hpylori and celiac. EGD WITH BIOPSY(S) 12/10/2022 Mild nonspecific inflammation in stomach EGD WITH BIOPSY(S) 02/19/2023 small hiatal hernia; Dr. Domínguez EXC/DSTRJ LINGUAL TONSIL ANY METHOD SPX remote MANOMETRY ESOPHAGEAL 02/19/2023 Dr. Britt PAST SURGICAL HISTORY OF 10/05/2015 TOT monarc sling PAST SURGICAL HISTORY OF Left 05/03/2016 ulnar nerve decompression PER ORAL PYLOROMYOTOMY (POP) PROCEDURE (COMP 47840) 05/08/2023 Dr. Domínguez TOTAL KNEE REPLACEMENT Left 10/18/2020 FAMILY HISTORY Problem Relation Age of Onset Cancer Mother Hysterectomy Alcohol/Drug Father Alcoholic other (Leukemia) Sister shortly after Heart Attack Brother x 2 Diabetes Brother Heart Maternal Grandmother Hearing Loss Maternal Grandmother Headache Maternal Grandmother Diabetes Maternal Grandmother Stroke Maternal Grandmother Heart Maternal Grandfather Diabetes Maternal Grandfather No Known Problems Paternal Grandmother No Known Problems Paternal Grandfather Coronary Artery Disease Son Hyperlipidemia Son Hypertension Son Hyperlipidemia Son No Known Problems Son Colon Cancer No Family History albuterol HFA (PROVENTIL HFA, VENTOLIN HFA) 90 mcg/actuation inhaler Inhale 2 Puffs as instructed every 4 hours as needed for wheezing/shortness of breath. gabapentin (NEURONTIN) 600 mg tablet Take 1 tablet by mouth three times daily for 90 days. ezetimibe (ZETIA) 10 mg tablet Take 1 tablet by mouth once daily. levothyroxine (SYNTHROID) 137 mcg tablet Take one daily and two on Friday. rOPINIRole (REQUIP) 1 mg tablet Take one tab by mouth before bed. Food Supplement, Lactose-Free (PROMOTE, OSMOLITE, TWO FABIENNE, ENSURE PLUS, ENLIVE) liqd Take 237 mL by mouth three times daily with meals. plecanatide (TRULANCE) 3 mg tablet Take 1 tablet (3 mg) by mouth once daily. rosuvastatin (CRESTOR) 40 mg tablet Take 1 tablet by mouth daily at bedtime. tiZANidine (ZANAFLEX) 4 mg tablet TAKE 1 PILL UP TO 3 TIMES PER DAY NEEDED FOR PAINFUL MUSCLE SPASMS sucralfate (CARAFATE) 1 gram tablet Take 1 tablet by mouth daily at bedtime. (Patient not taking: Reported on 06/17/2023) Fenofibrate (LOFIBRA) 54 mg tablet Take 1 tablet by mouth once daily. topiramate (TOPAMAX) 100 mg tablet Take 1 tablet by mouth twice daily. rimegepant (NURTEC ODT) 75 mg disintegrating tablet Take 1 tablet by mouth once daily as needed. cyanocobalamin (VITAMIN B-12) 1,000 mcg tab Take 1 tablet by mouth once daily. ARIPiprazole (ABILIFY) 15 mg tablet Take 15 mg by mouth once daily. pantoprazole DR (PROTONIX) 40 mg tablet Take 1 tablet by mouth twice daily. Take on empty stomach, 1/2 hr before meal. metFORMIN ER (GLUCOPHAGE XR) 500 mg 24 hr tablet Take 1 tablet by mouth daily with breakfast. amitriptyline (ELAVIL) 25 mg tablet Take 1 tablet by mouth daily at bedtime. aspirin, enteric coated (ASPIRIN, ENTERIC COATED) 81 mg EC tablet Take 81 mg by mouth every other day. CPAP Mask fitting and 30 day download for autopap 10 -20 cm H2O & formal mask refitting for medical necessity & schedule with the RT, chin strap, head gear, humidity, heated tubing (SACHI), lifetime supplies. G47.33 JORDAN blood sugar diagnostic (BLOOD GLUCOSE TEST) test strip Test blood sugar(s) 1 times daily. Dx: Other DM Code R73.03 Insulin: No Lancets lancets Test blood sugar(s) 1 times daily. Dx: Other DM Code R73.03 Insulin: No lactase (LACTAID) 3,000 unit tablet Take 1 tablet by mouth three times daily with meals. acetaminophen (TYLENOL ARTHRITIS ORAL) Take 650 mg by mouth every 8 hours as needed. COMPOUNDED PRESCRIPTION Wheeled rolator walker with ahnd breaks and seat, # 1, Dx:M19.071, Z91.071 DULoxetine (CYMBALTA) 30 mg capsule Take 1 capsule by mouth once daily. [facility] ALLERGIES Allergen Reactions Ditropan [Oxybutyni* Other: See Comments Nausea,vomiting Benztropine Other: See Comments, Unknown Cogentin [Benztropi* Other: See Comments Blurred vision Depakote [Divalproe* GI Upset Flagyl [Metronidazo* GI Upset Nausea and vomiting Ibuprofen GI Upset Nexium [Esomeprazol* Unknown Oxybutynin Unknown Oxycodone GI Upset, Unknown Percocet [Oxycodone* Other: See Comments Nausea, RDZ, eye swelling Tylenol [Acetaminop* GI Upset diarrhea with high doses The medications and allergies were reviewed and reconciled for this patient and deemed current. Lung Cancer Risk Factors: 1.Tobacco Use: Start Age 14, Quit Age: 58, Average packs per day 0.5, Pack Years 22 2. Passive Smoke Exposure: Yes, as a Child and as an Adult 3. Personal hx of malignancy: No, Type of Cancer: 4. 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 Race: White 6. Education: High School Graduate 7. BMI:Body mass index is 32.44 kg/m . Patient-entered Height: 5'3 Patient-entered Weight: 186 pounds 8. COPD: No 9. Pneumonia in the past 5 years: Yes 10. Is there a history of lung cancer in a first degree relative? Yes 11. Is there a history of lung cancer in a non-first degree relative? Yes 12. Is there a history of any other cancer in a first degree relative? Yes Health Maintenance Immunization History Administered Date(s) Administered influenza (IIV3) vaccine, age 3+ yr, trivalent (AFLURIA, FLULAVAL, FLUVIRIN, FLUZONE) 09/16/2014 influenza (IIV3) vaccine, trivalent (AFLURIA, FLULAVAL, FLUVIRIN, FLUZONE) 08/24/2015 influenza (IIV3) vaccine, trivalent, PF (AFLURIA, FLUARIX, FLULAVAL, FLUVIRIN, FLUZONE) 08/17/2017 influenza (IIV4) vaccine, age 6 mo - 64 yr, quadrivalent (AFLURIA, FLULAVAL, FLUZONE) 08/24/2015 09/07/2016 09/21/2017 09/02/2018 09/24/2019 08/28/2020 09/26/2021 10/01/2022 influenza vaccine, unspecified formulation 10/02/2007 09/23/2008 08/17/2009 09/13/2010 09/07/2011 09/05/2012 08/18/2013 novel influenza (K1S0-69) vaccine, PF 11/14/2009 pneumococcal (PCV20) vaccine, 20 valent (PREVNAR 20) 03/31/2023 pneumococcal (PPV23) vaccine, 23 valent (PNEUMOVAX 23) 08/18/2003 03/03/2018 tetanus diphtheria pertussis (Tdap) vaccine, age 7+ yr (ADACEL, BOOSTRIX) 08/18/2013 zoster (RZV) vaccine, recombinant (SHINGRIX) 05/11/2018 09/28/2021 12/05/2021 Colonoscopy: 12/10/2022 Mammogram: 08/14/2022 DATA REVIEW I have directly visualized the testing documented: 04/17/2022 Ct Chest Prior Imaging: Last CT/CTA Chest/Lungs CT CHEST WO IVCON Exam End: 04/17/2022 2:04 PM (Final result) Narrative: * * *Final Report* * * DATE OF EXAM: Apr 17 2022 2:04PM [id number] - CT CHEST WO IVCON / PROCEDURE REASON: Lung nodules * * * * Physician Interpretation * * * * EXAMINATION: CHEST CT WITHOUT CONTRAST CLINICAL HISTORY: Lung nodules Technique: Spiral CT acquisition of the chest from the thoracic inlet to the upper abdomen without contrast. MQ: [id number] CT Radiation dose: Integrated Dose-length product (DLP) for this visit = 237 mGy*cm CT Dose Reduction Employed: Automated exposure control(AEC) and iterative recon Comparison: CT chest on 06/10/2018. RESULT: Limitations: None. Lines, tubes, and devices: None. Lung parenchyma and airways: The central airways are patent. There are a few stable pulmonary nodules visualized. For example, a 4 mm subsolid nodule in the left upper lobe, series 6 image 33. A 2 mm nodule in the left upper lobe, series 6 images 75. A 2 mm nodule in the right upper lobe, series 6 image 55. There is a 5 mm solid nodule in the right lower lobe, series 6 image 145. A tiny calcification seen in the left upper lobe, series 6 image 66. There appears to be a focal mucoid impaction in the right upper lobe, series 6 image 82. Scattered 1 mm nodules in the bilateral lungs also demonstrate. There is mild emphysema in the upper lungs, unchanged. The lungs are clear without consolidations Pleural space: No pleural effusion or pneumothorax. No pleural thickening. Lower neck, lymph nodes, and mediastinum: The imaged thyroid gland is normal. No lymphadenopathy in the supraclavicular, axillary, mediastinal, or hilar regions. There appears to be thymic hyperplasia in the anterior mediastinum however unchanged. Heart, pericardium, and thoracic vessels: The thoracic aorta and main pulmonary artery are normal in caliber. The cardiac chambers are normal in size. Punctate coronary artery atherosclerotic calcification is noted, although the study is not optimized for coronary assessment. No pericardial effusion or thickening. Bones and soft tissues: No destructive bone lesion. Chest wall is unremarkable. Upper abdomen: No abnormality in the imaged upper abdomen. Founder And Chief Technical Officer (topogram) images: No additional findings. Impression: IMPRESSION: There are a few stable pulmonary nodules in the bilateral lungs as described above. Scattered tiny nodules also noted. Mild emphysema. Electric Organ Inspector And Repairer: [facility] Transcribe Date/Time: Apr 17 2022 3:31P Dictated by : KATIE KILGORE MD This examination was interpreted and the report reviewed and electronically signed by: KATIE KILGORE MD on Apr 17 2022 3:47PM EST Last CT Chest - Impression Only CT CHEST WO IVCON Exam End: 04/17/2022 2:04 PM (Final result) Impression: IMPRESSION: There are a few stable pulmonary nodules in the bilateral lungs as described above. Scattered tiny nodules also noted. Mild emphysema. ... Last XR Chest - Impression Only XR CHEST 2V FRONTAL/LAT Exam End: 12/02/2022 2:02 PM (Final result) Impression: IMPRESSION: No acute radiographic abnormality. ... Pulmonary Function Testing: No textual results found for the specified procedure(s). PHYSICAL EXAM: BP 126/78 Pulse 61 Resp 14 Wt 85.7 kg (189 lb) SpO2 99% BMI 32.44 kg/m Deferred ASSESSMENT and RECOMMENDATIONS: 1. Screening for lung cancer: Six year risk for lung cancer: 3.93% I have determined that the patient is eligible for a low dose CT based on age, absence of signs or symptoms of lung cancer, and total pack years: Yes. The patient and I engaged in shared decision making, including the use of one or more decision aids, to include benefits, harms, follow-up diagnostic testing, over-diagnosis, false positive rate, and total radiation exposure. The patient understands and feels comfortable with it: Yes. The patient was counseled on the importance of adherence to annual LDCT lung cancer screening, impact of comorbidities and ability or willingness to undergo diagnosis and treatment. The patient understands and feels comfortable with it:Yes. 2. Former Nicotine dependence: The patient was counseled on the importance of maintaining cigarette smoking abstinence - The patient is committed to remaining abstinent from tobacco. Coral Marino APRN.MARY ELLEN NPI #: July 08, 2023 2:09 PM documented in this encounter [facility] 07-08-2023 Note [facility] 07-03-2023 Note [facility] 07-03-2023 History of Present illness Narrative ACM TAMIKO RN Action/FYI: Medication Adherence review completed per request of payer. NO PROVIDER ACTION REQUIRED Please see requests in the Summary/Findings section below Patient identified by name and date of . Patient Attributed To: QAE Payer: [facility] Reason for review or outreach: Medication Adherence Medication Adherence Review Details: Cholesterol Summary / Findings: METFORMIN TAB 500MG ER Last filled 03/20/2023 Refill due 04/19/2023 for a 30 day supply [facility] 10-1724 64 days late OZEMPIC INJ 4MG/3ML Last filled 12/16/2022 Refill due 01/13/2023 [facility] 10-1724 64 days late Action Taken: Data submitted to [facility] [employer] message to patient Contact made with patient: No, Chart review only. documented in this encounter [facility] 07-03-2023 Note [facility] 07-03-2023 History of Present illness Narrative Sleep Study Check-In Documentation Date: July 03, 2023 Name: Chanda Haq Patient was accompanied by Spouse. Location: Latex allergy: No Tape allergy: No Current medications were reviewed with the patient:Yes Sleep aid taken by patient for the sleep study: [place] of sleep aid: Not Applicable Procedure was explained to the patient and all questions were answered. PAP treatment discussed and shown to patient: Yes Knowledge Program (KP): KP completed in epic by patient and accepted Study type: Polysomnogram Adverse Event: No (If yes create a new abstract) Comments: Patient was advised to follow up with their ordering provider regarding test results Yariel Holloway documented in this encounter [facility] 07-02-2023 Note [facility] 07-02-2023 History of Present illness Narrative July 02, 2023 Standing PSG Orders signed in the last 90 days None Future PSG Orders signed in the last 90 days None All Prior Sleep Studies (past 365 days) Some values may be hidden. Unless noted otherwise, only the newest values recorded on each date are displayed. Sleep Studies POLYSOMNOGRAM (PSG) Date: 07/02/23 BMI Readings from Last 2 Encounters: 06/17/23 : 32.27 kg/m 06/11/23 : 31.93 kg/m PAST MEDICAL HISTORY Diagnosis Date Acquired hypothyroidism 08/22/2015 ACUTE GASTRITIS W/O HEMORRHAGE 02/05/2006 Advance directive discussed with patient 04/02/2023 Discussed 03/2023: Up to date Anxiety and depression 10/05/2020 Arthritis 05/18/2020 Arthritis of lumbar spine 03/05/2022 Mod Arthritis of right foot 09/02/2018 At high risk for falls 09/02/2018 Backache, unspecified 01/11/2013 Bilateral carotid artery stenosis 09/25/202009/2020 20-40% bilaterally Bipolar I disorder (HCC) 12/20/2005 [facility] Cervical disc disorder with radiculopathy 09/27/2021 Cervical radiculopathy 09/19/2021 Cervical spondylosis 09/19/2021 Seeing pain management Cervical spondylosis without myelopathy 09/27/2021 Cervical stenosis of spinal canal 09/19/2021 Chronic pain of left knee 06/19/2019 Class 1 obesity due to excess calories without serious comorbidity with body mass index (BMI) of 33.0 to 33.9 in adult 03/03/2018 Current use of proton pump inhibitor 03/03/2018 Diaphragmatic hernia without mention of obstruction or gangrene 02/05/2006 Elevated hemoglobin A1c 06/29/2018 Encounter for screening mammogram for breast cancer 03/05/2019 Ex-smoker 08/22/2015 Started at age 14 and has smoked up to 1/2 a PPD, quit 12/2017 External hemorrhoids without mention of complication Gastroesophageal reflux disease with esophagitis 08/22/2015 Gastroparesis 01/30/2023 Hearing loss Hearing aids in both ears. Hiatal hernia 02/19/2023 small History of transient ischemic attack (TIA) 11/05/2019 Incontinence 02/20/[address] Jordan Irritable bowel syndrome with constipation 03/03/2018 Lactose intolerance 03/05/2019 Living will on file at physician's office 04/02/2023 DPA: John () Lung nodules 12/11/2017 CT 12/11/[address] 05/2018 stable needs repeat in 2 yrs Medicare annual wellness visit, subsequent 03/03/2018 Medicare Part B: 06/17/2001 last done: 03/05/2019 Migraine without aura and without status migrainosus, not intractable 05/22/2016 Mixed hyperlipidemia 08/22/2015 JORDAN (obstructive sleep apnea) 09/02/2018 DME DASCO Osteopenia of lumbar spine 11/27/2020 Borderline on DXA 11/2020 Other constipation 07/21/2019 Overactive bladder 05/30/2015 Personal history of fibromyalgia 06/17/2023 Patient mentions this at appt on 06/17/2023 Primary insomnia 07/30/2018 Primary osteoarthritis of left knee 11/05/2019 RLS (restless legs syndrome) 06/04/2019 S/P total knee arthroplasty, left 10/18/2020 Smoker 08/22/2015 Started at age 14 and has smoked up to 1/2 a PPD, quit 12/2017 Thoracic arthritis 03/05/2022 Mild Vitamin D deficiency 01/25/2020 The medical record was reviewed to determine if the proposed sleep study conforms to the [facility] Practice Parameters for the Indications for Polysomnography and Related Procedures, or if the sleep study is indicated for other reasons. Indications for study: JORDAN suspected with comorbid medical or sleep disorders: Cognitive impairment, disability, other special needs Sleep study to be performed: Polysomnogram Special instructions: Split night study if AHI > 15. Start with 5 cmH2O then titrate per protocol Minal Nicole MD Sleep Medicine Staff Note: I have read the above protocol, edited as needed, and agree to the plan. Minal Nicole MD 9:38 PM, 07/02/2023 documented in this encounter [facility] 06-17-2023 Note [facility] 06-17-2023 History of Present illness Narrative Chief Complaint Patient presents with: Fatigue HPI Chanda Haq is a 63 year old female who presents here today for fatigue/weakness. Office visit - fatigue/weakness Hair falling out; fatigue; muscle weakness and memory loss. Patient had surgery on for her paraesophageal hernia and was feeling pretty good but has been having constipation and stomach bloating. Still on liquid diet trying to phase into to food. Patient has a f/u with surgeon on 08/28/2023. Seeing Chiropractor for her neck. With further discussion patient claims to have been told in the past she has Fibro but there has been no documentation of this in her problem list or past med Hx. Claims she discussed with Rheum and told it may just be aging related. Continue to feel fatigue and generalized muscle weakness. Office visit - hair loss; fatigue 06/11/2023 Patient states she just feels crummy . She reached out and asked for thyroid lab but that came back normal. She states she doesn't have any energy, she feels like her hair is falling out. Has been struggling with weakness. She is starting Ensure sooner to see if will help with her nutrition and energy. Past medical history, appointments, medications, allergies reviewed. Previous Medical History PAST MEDICAL HISTORY Diagnosis Date Acquired hypothyroidism 08/22/2015 ACUTE GASTRITIS W/O HEMORRHAGE 02/05/2006 Advance directive discussed with patient 04/02/2023 Discussed 03/2023: Up to date Anxiety and depression 10/05/2020 Arthritis 05/18/2020 Arthritis of lumbar spine 03/05/2022 Mod Arthritis of right foot 09/02/2018 At high risk for falls 09/02/2018 Backache, unspecified 01/11/2013 Bilateral carotid artery stenosis 09/25/202009/2020 20-40% bilaterally Bipolar I disorder (HCC) 12/20/2005 Vanessa [facility]que[facility] at [facility] Cervical disc disorder with radiculopathy 09/27/2021 Cervical radiculopathy 09/19/2021 Cervical spondylosis 09/19/2021 Seeing pain management Cervical spondylosis without myelopathy 09/27/2021 Cervical stenosis of spinal canal 09/19/2021 Chronic pain of left knee 06/19/2019 Class 1 obesity due to excess calories without serious comorbidity with body mass index (BMI) of 33.0 to 33.9 in adult 03/03/2018 Current use of proton pump inhibitor 03/03/2018 Diaphragmatic hernia without mention of obstruction or gangrene 02/05/2006 Elevated hemoglobin A1c 06/29/2018 Encounter for screening mammogram for breast cancer 03/05/2019 Ex-smoker 08/22/2015 Started at age 14 and has smoked up to 1/2 a PPD, quit 12/2017 External hemorrhoids without mention of complication Gastroesophageal reflux disease with esophagitis 08/22/2015 Gastroparesis 01/30/2023 Hearing loss Hearing aids in both ears. Hiatal hernia 02/19/2023 small History of transient ischemic attack (TIA) 11/05/2019 Incontinence 02/20/[address] Jordan Irritable bowel syndrome with constipation 03/03/2018 Lactose intolerance 03/05/2019 Living will on file at physician's office 04/02/2023 DPA: John () Lung nodules 12/11/2017 CT 12/11/[address] 05/2018 stable needs repeat in 2 yrs Medicare annual wellness visit, subsequent 03/03/2018 Medicare Part B: 06/17/2001 last done: 03/05/2019 Migraine without aura and without status migrainosus, not intractable 05/22/2016 Mixed hyperlipidemia 08/22/2015 JORDAN (obstructive sleep apnea) 09/02/2018 DME DASCO Osteopenia of lumbar spine 11/27/2020 Borderline on DXA 11/2020 Other constipation 07/21/2019 Overactive bladder 05/30/2015 Primary insomnia 07/30/2018 Primary osteoarthritis of left knee 11/05/2019 RLS (restless legs syndrome) 06/04/2019 S/P total knee arthroplasty, left 10/18/2020 Smoker 08/22/2015 Started at age 14 and has smoked up to 1/2 a PPD, quit 12/2017 Thoracic arthritis 03/05/2022 Mild Vitamin D deficiency 01/25/2020 Previous Surgical History PAST SURGICAL HISTORY Procedure Laterality Date 48 HOUR PH STUDY 02/19/2023 Dr. Domínguez ARTHROSCOPY KNEE DIAGNOSTIC W/WO SYNOVIAL BX SPX Left ARTHRS KNE SURG W/MENISCECTOMY MED/LAT W/SHVG Left 12/01/2019 COLONOSCOPY 02/28/2009 COLONOSCOPY 02/04/2018 COLONOSCOPY 08/11/2019 one polyp, repeat 10 yrs COLONOSCOPY 12/10/2022 Hyperplastic rectal polyp CYSTOURETHROSCOPY 10/05/2015 EGD WITH BIOPSY(S) 02/05/2006 EGD WITH BIOPSY(S) 12/21/2014 EGD WITH BIOPSY(S) 03/29/2015 EGD WITH BIOPSY(S) 03/24/2018 Dr. Garcia reported as normal. Neg for Hpylori and celiac. EGD WITH BIOPSY(S) 12/10/2022 Mild nonspecific inflammation in stomach EGD WITH BIOPSY(S) 02/19/2023 small hiatal hernia; Dr. Domínguez EXC/DSTRJ LINGUAL TONSIL ANY METHOD SPX remote MANOMETRY ESOPHAGEAL 02/19/2023 Dr. Britt PAST SURGICAL HISTORY OF 10/05/2015 TOT monarc sling PAST SURGICAL HISTORY OF Left 05/03/2016 ulnar nerve decompression PER ORAL PYLOROMYOTOMY (POP) PROCEDURE (COMP [id number]) 05/08/2023 Dr. Domínguez TOTAL KNEE REPLACEMENT Left 10/18/2020 Family History FAMILY HISTORY Problem Relation Age of Onset Cancer Mother Hysterectomy Alcohol/Drug Father Alcoholic other (Leukemia) Sister shortly after Heart Attack Brother x 2 Diabetes Brother Heart Maternal Grandmother Hearing Loss Maternal Grandmother Headache Maternal Grandmother Diabetes Maternal Grandmother Stroke Maternal Grandmother Heart Maternal Grandfather Diabetes Maternal Grandfather No Known Problems Paternal Grandmother No Known Problems Paternal Grandfather Coronary Artery Disease Son Hyperlipidemia Son Hypertension Son Hyperlipidemia Son No Known Problems Son Colon Cancer No Family History Patient Allergies ALLERGIES Allergen Reactions Ditropan [Oxybutyni* Other: See Comments Nausea,vomiting Benztropine Other: See Comments, Unknown Cogentin [Benztropi* Other: See Comments Blurred vision Depakote [Divalproe* GI Upset Flagyl [Metronidazo* GI Upset Nausea and vomiting Ibuprofen GI Upset Nexium [Esomeprazol* Unknown Oxybutynin Unknown Oxycodone GI Upset, Unknown Percocet [Oxycodone* Other: See Comments Nausea, RDZ, eye swelling Tylenol [Acetaminop* GI Upset diarrhea with high doses Current Medications Current Outpatient Medications on File Prior to Visit Medication Sig albuterol HFA (PROVENTIL HFA, VENTOLIN HFA) 90 mcg/actuation inhaler Inhale 2 Puffs as instructed every 4 hours as needed for wheezing/shortness of breath. gabapentin (NEURONTIN) 600 mg tablet Take 1 tablet by mouth three times daily for 90 days. ezetimibe (ZETIA) 10 mg tablet Take 1 tablet by mouth once daily. levothyroxine (SYNTHROID) 137 mcg tablet Take one daily and two on Friday. rOPINIRole (REQUIP) 1 mg tablet Take one tab by mouth before bed. busPIRone (BUSPAR) 10 mg tablet Take 10 mg by mouth once daily as needed. Food Supplement, Lactose-Free (PROMOTE, OSMOLITE, TWO FABIENNE, ENSURE PLUS, ENLIVE) liqd Take 237 mL by mouth three times daily with meals. plecanatide (TRULANCE) 3 mg tablet Take 1 tablet (3 mg) by mouth once daily. rosuvastatin (CRESTOR) 40 mg tablet Take 1 tablet by mouth daily at bedtime. tiZANidine (ZANAFLEX) 4 mg tablet TAKE 1 PILL UP TO 3 TIMES PER DAY NEEDED FOR PAINFUL MUSCLE SPASMS sucralfate (CARAFATE) 1 gram tablet Take 1 tablet by mouth daily at bedtime. Fenofibrate (LOFIBRA) 54 mg tablet Take 1 tablet by mouth once daily. topiramate (TOPAMAX) 100 mg tablet Take 1 tablet by mouth twice daily. rimegepant (NURTEC ODT) 75 mg disintegrating tablet Take 1 tablet by mouth once daily as needed. cyanocobalamin (VITAMIN B-12) 1,000 mcg tab Take 1 tablet by mouth once daily. ARIPiprazole (ABILIFY) 15 mg tablet Take 15 mg by mouth once daily. pantoprazole DR (PROTONIX) 40 mg tablet Take 1 tablet by mouth twice daily. Take on empty stomach, 1/2 hr before meal. metFORMIN ER (GLUCOPHAGE XR) 500 mg 24 hr tablet Take 1 tablet by mouth daily with breakfast. amitriptyline (ELAVIL) 25 mg tablet Take 1 tablet by mouth daily at bedtime. aspirin, enteric coated (ASPIRIN, ENTERIC COATED) 81 mg EC tablet Take 81 mg by mouth once daily. CPAP Mask fitting and 30 day download for autopap 10 -20 cm H2O & formal mask refitting for medical necessity & schedule with the RT, chin strap, head gear, humidity, heated tubing (SACHI), lifetime supplies. G47.33 JORDAN blood sugar diagnostic (BLOOD GLUCOSE TEST) test strip Test blood sugar(s) 1 times daily. Dx: Other DM Code R73.03 Insulin: No Lancets lancets Test blood sugar(s) 1 times daily. Dx: Other DM Code R73.03 Insulin: No lactase (LACTAID) 3,000 unit tablet Take 1 tablet by mouth three times daily with meals. acetaminophen (TYLENOL ARTHRITIS ORAL) Take 650 mg by mouth every 8 hours as needed. COMPOUNDED PRESCRIPTION Wheeled rolator walker with ahnd breaks and seat, # 1, Dx:M19.071, Z91.071 DULoxetine (CYMBALTA) 30 mg capsule Take 1 capsule by mouth once daily. [facility] No current facility-administered medications on file prior to visit. Social History Social History Tobacco Use Smoking status: Former Packs/day: 0.50 Years: 40.00 Total pack years: 20.00 Types: Cigarettes Quit date: 01/07/2018 Years since quittin.4 Smokeless tobacco: Never Tobacco comments: used welbutrin Vaping Use Vaping Use: Never used Substance Use Topics Alcohol use: No Drug use: No Review of Symptoms REVIEW OF SYSTEMS See HPI EXAM: BP 122/82 (BP Site: Right Arm, BP Position: Sitting, BP Cuff Size: Regular Adult) Pulse 69 Temp 36.9 C (98.4 F) (Tympanic) Resp 18 Wt 85.3 kg (188 lb) SpO2 96% BMI 32.27 kg/m General Appearance: Well appearing, alert, in no acute distress, well-hydrated, well nourished. and Obese. Lungs: Lungs clear to auscultation. No wheezing, rhonchi, rales.. Heart: RRR without murmur, gallop, or rubs. No ectopy. Extremities: No deformities, edema, skin discoloration, Good capillary refill. . Musculoskeletal: she has normal public safety officer strength, bicep and triceps strength bilaterally. Normal knee extension and hip flexion strength bilaterally. Patient was able to stand up from sitting with no aid and ambulate to the table without use of her cane and then get up on the table on her own with no notable signs of weakness. Peripheral Pulses: Normal. Neurologic: Gait normal. Sensation to light touch and crainal nerves 2-12 intact.. Eyes: PEERL/extra ocular muscles intact. Health Maintenance List SPIROMETRY Never done ALPHA-1 ANTITRYPSIN DEFICIENCY SCREENING Never done LUNG CANCER SCREENING due on 04/17/2023 MAMMOGRAM due on 08/14/2023 INFLUENZA(1) due on 07/18/2023 DTAP,TDAP,TD(2 - Td or Tdap) due on 08/18/2023 ANNUAL PCP TEAM CHRONIC DISEASE VISIT due on 06/11/2024 DIABETES SCREEN due on 06/11/2026 LIPID SCREEN due on 09/07/2027 COLORECTAL CANCER SCREENING due on 12/10/2027 BONE DENSITY Completed ADVANCE DIRECTIVE DISCUSSION Completed HEPATITIS C SCREENING Completed HIV SCREENING Completed SHINGRIX VACCINE Completed PNEUMOCOCCAL: 65+ Completed PAP TESTING Discontinued COVID-19 VACCINE Discontinued Data reviewed Component Latest Ref Rng & Units 06/05/2023 06/11/2023 WBC 3.70 - 11.00 k/uL 6.41 RBC 3.90 - 5.20 m/uL 4.19 Hemoglobin 11.5 - 15.5 g/dL 12.0 Hematocrit 36.0 - 46.0 % 38.7 MCV 80.0 - 100.0 fL 92.4 MCH 26.0 - 34.0 pg 28.6 MCHC 30.5 - 36.0 g/dL 31.0 RDW-CV 11.5 - 15.0 % 14.0 Platelet Count 150 - 400 k/uL 309 MPV 9.0 - 12.7 fL 11.5 Neut% % 48.0 Abs Neut (ANC) 1.45 - 7.50 k/uL 3.08 Lymph% % 42.7 Abs Lymph 1.00 - 4.00 k/uL 2.74 Josephine% % 8.0 Abs Josephine <0.87 k/uL 0.51 Eosin% % 0.6 Abs Eosin <0.46 k/uL 0.04 Baso% % 0.5 Abs Baso <0.11 k/uL 0.03 Immature Gran % % 0.2 IMMATURE GRANS (ABS) <0.10 k/uL <0.03 NRBC /100 WBC 0.0 Absolute nRBC <0.01 k/uL <0.01 DTYPE Auto Glucose 74 - 99 mg/dL 87 BUN 7 - 21 mg/dL 18 Creatinine 0.58 - 0.96 mg/dL 0.88 Sodium 136 - 144 mmol/L 141 Potassium 3.7 - 5.1 mmol/L 4.1 Chloride 97 - 105 mmol/L 105 CO2 22 - 30 mmol/L 23 Anion Gap 9 - 18 mmol/L 13 Calcium 8.5 - 10.2 mg/dL 10.3 (H) eGFR >=60 mL/min/1.73m 73 Iron 41 - 186 ug/dL 53 TIBC 232 - 386 ug/dL 344 Transferrin Saturation 15.0 - 57.0 % 15.4 TSH 0.270 - 4.200 mIU/L 0.553 Folate >4.7 ng/mL 11.9 Vitamin B12 232 - 1,245 pg/mL 691 Vitamin D 25 Hydroxy 31.0 - 80.0 ng/mL 80.4 (H) Free T4 0.9 - 1.7 ng/dL 1.7 Ferritin 14.7 - 205.1 ng/mL 47.1 A/P ASSESSMENT/PLAN: 1. Fatigue, unspecified type - ICD9: 780.79, ICD10: R53.83 (primary diagnosis) - CONSULT TO PHARMACY - CONSULT TO NEUROLOGY 2. Generalized weakness - ICD9: 780.79, ICD10: R53.1 - CONSULT TO PHARMACY - CONSULT TO NEUROLOGY 3. Balance problems - ICD9: 781.99, ICD10: R26.89 - CONSULT TO NEUROLOGY 4. Personal history of fibromyalgia - ICD9: V13.59, ICD10: Z87.39 - explained to patient that this could be the source of her symptoms and is on meds that would be beneficial and may continue to be a chronic issue. 5. Encounter for screening for lung cancer - ICD9: V76.0, ICD10: Z12.2 - CONSULT LUNG CANCER SCREENING CLINIC 6. Ex-smoker - ICD9: V15.82, ICD10: Z87.891 - CONSULT LUNG CANCER SCREENING CLINIC Patient has routine appt in Jul 2023. I spent a total of 40 minutes on the date of the service which included preparing to see the patient, [id number] patient care, completing clinical documentation, performing a medically appropriate examination, counseling and educating the patient/family/caregiver and ordering medications, tests, or procedures. Kyle Sylvester MD documented in this encounter [facility] 06-16-2023 Miscellaneous Notes Patient has been identified by name and date of : Yes Patient phones for refill(s): Requested Prescriptions Pending Prescriptions Disp Refills albuterol HFA (PROVENTIL HFA, VENTOLIN HFA) 90 mcg/actuation inhaler 18 g 1 Sig: Inhale 2 Puffs as instructed every 4 hours as needed for wheezing/shortness of breath. Date of last office visit in primary care: LAKESHA 06/11/23 NOV 06/17/23 Last 2 Encounter Wt Readings: Date: Wt: 06/11/2023 84.4 kg (186 lb) 06/09/2023 85.5 kg (188 lb 9.6 oz) Please advise. Thank you. YAHAIRA Matos documented in this encounter [facility] 06-13-2023 Miscellaneous Notes Pt has appt on 06/17/23 with PCP. Pt stated she is drinking Ensure. Mare Santana LPN She can follow up sooner with PCP. I don't have other suggestions yet. Did she start the ENSURE? Needs to discuss constipation concerns with her gastroparesis specialist. Spoke with patient and she indicated that she is still has terrible fatigue; slept most of yesterday; hair is still falling out; weakness and constipation. Patient has appointment yesterday with Rheumatology. She let them know of the issues. No further instructions. She also didn't know when she was suppose to come back for blood work so she was going to do next. Notes say in 2 months. Patient said she doesn't want to wait that long because of how she is feeling. Do you want an appointment with us or additional blood? [place] Reis MA Let patient know that her labs overall looked okay. Her calcium and vit D level was mildly elevated and I see that a specialist has ordered repeats. Push fluids and keep follow up with PCP. documented in this encounter [facility] 06-12-2023 Note HNO ID: [id number] Author: Laura Dorantes MD Service: ? Author Type: Physician Type: Progress Notes Filed: 06/12/2023 10:02 AM Note Text: VIRTUAL VISIT PROGRESS NOTE This is a virtual visit using [employer] video visit. It required patient-provider interaction for the medical decision making as documented below. I have communicated my name and active licensure. The patient's identity and physical location were verified at the time of this visit. Either the patient or their legal major account representative has been informed of the risks and benefits of -- and alternatives to -- treatment through a remote evaluation and consents to proceed with the evaluation remotely. Chanda Haq is a 63 year old female seen for joint pain. Fatigue, short term memory loss. Had labs from PCP yesterday. Neck pain. Brief Rheumatological history - She has joint pain over several areas. She has h/o positive REBA. Pain over neck, shoulders, elbows, feet, hands x several years. S/p left knee replacement. Ulnar nerve surgery. She tried tylenol arthritis, heat, ice, nerve blocks, ablation. On gabapentin, Zanaflex, topamax, Cymbalta. She was noted to have abnormal labs REBA, RF, dsDNA and referred here. She sees pain management. In walking boot. Stress fracture? Thyroid disease Bladder sling. Family h/o autoimmune diseases - none Smoking - Rheumatology REVIEW OF SYSTEMS: Constitutional: Recent Weight Change: YES losing Fatigue: Fever: No Night sweats: No Heent: Alopecia: YES H/o Inflammatory eye disease (iritis/scleritis): No Hearing loss: No Frequent sinusitis: No Oral ulcers: YES Sicca: YES Parotid swelling: No Hoarseness: No Dysphagia: No Heme/lymph: Lymphadenopathy: No Hematological abnormalities (anemia, thrombocytopenia, leukopenia): No Abnormal bleeding: No Skin: Malar or discoid lesions: No Photosensitivity: No Other rashes: YES cheeks Raynaud's phenomenon: YES Hives: No Tightness: No Nodules/bumps: No Easy Bruising: No Nail changes: No H/o psoriasis: No Gastroenterology: Nausea: {YES Vomiting: YES she will be seeing GI Change in bowel movements: YES Heartburn: No Respiratory: Dry cough/SOB: No SOB sometimes Cardiovascular: Pain in chest: No Musculoskeletal: Per HPI Genitourinary: Vaginal dryness: No Rash/ulcers: No Neurological: Headaches: YES Sensitivity or pain of hands and/or feet: YES Psychiatry: Anxiety: YES Depression: YES Poor sleep: YES chronic, JORDAN on CPAP H/o loss: No H/o thrombosis: No Increased susceptibility to infection: No HISTORY REVIEWED (electronic chart updated): PAST MEDICAL HISTORY Diagnosis Date Acquired hypothyroidism 08/22/2015 ACUTE GASTRITIS W/O HEMORRHAGE 02/05/2006 Advance directive discussed with patient 04/02/2023 Discussed 03/2023: Up to date Anxiety and depression 10/05/2020 Arthritis 05/18/2020 Arthritis of lumbar spine 03/05/2022 Mod Arthritis of right foot 09/02/2018 At high risk for falls 09/02/2018 Backache, unspecified 01/11/2013 Bilateral carotid artery stenosis 09/25/202009/2020 20-40% bilaterally Bipolar I disorder (HCC) 12/20/2005 Seeds Stinger at [facility] Cervical disc disorder with radiculopathy 09/27/2021 Cervical radiculopathy 09/19/2021 Cervical spondylosis 09/19/2021 Seeing pain management Cervical spondylosis without myelopathy 09/27/2021 Cervical stenosis of spinal canal 09/19/2021 Chronic pain of left knee 06/19/2019 Class 1 obesity due to excess calories without serious comorbidity with body mass index (BMI) of 33.0 to 33.9 in adult 03/03/2018 Current use of proton pump inhibitor 03/03/2018 Diaphragmatic hernia without mention of obstruction or gangrene 02/05/2006 Elevated hemoglobin A1c 06/29/2018 Encounter for screening mammogram for breast cancer 03/05/2019 Ex-smoker 08/22/2015 Started at age 14 and has smoked up to 1/2 a PPD, quit 12/2017 External hemorrhoids without mention of complication Gastroesophageal reflux disease with esophagitis 08/22/2015 Gastroparesis 01/30/2023 Hearing loss Hearing aids in both ears. Hiatal hernia 02/19/2023 small History of transient ischemic attack (TIA) 11/05/2019 Incontinence 02/20/[address] Jordan Irritable bowel syndrome with constipation 03/03/2018 Lactose intolerance 03/05/2019 Living will on file at physician's office 04/02/2023 DPA: John () Lung nodules 12/11/2017 CT 12/11/[address] 05/2018 stable needs repeat in 2 yrs Medicare annual wellness visit, subsequent 03/03/2018 Medicare Part B: 06/17/2001 last done: 03/05/2019 Migraine without aura and without status migrainosus, not intractable 05/22/2016 Mixed hyperlipidemia 08/22/2015 JORDAN (obstructive sleep apnea) 09/02/2018 DME [facility] Osteopenia of lumbar spine 11/27/2020 Borderline on DXA 11/2020 Other constipation 07/21/2019 Overactive bladder 05/30/2015 Primary ins (more content not included)... [facility] 06-12-2023 History of Present illness Narrative VIRTUAL VISIT PROGRESS NOTE This is a virtual visit using [employer] video visit. It required patient-provider interaction for the medical decision making as documented below. I have communicated my name and active licensure. The patient's identity and physical location were verified at the time of this visit. Either the patient or their legal major account representative has been informed of the risks and benefits of -- and alternatives to -- treatment through a remote evaluation and consents to proceed with the evaluation remotely. Chanda Haq is a 63 year old female seen for joint pain. Fatigue, short term memory loss. Had labs from PCP yesterday. Neck pain. Brief Rheumatological history - She has joint pain over several areas. She has h/o positive REBA. Pain over neck, shoulders, elbows, feet, hands x several years. S/p left knee replacement. Ulnar nerve surgery. She tried tylenol arthritis, heat, ice, nerve blocks, ablation. On gabapentin, Zanaflex, topamax, Cymbalta. She was noted to have abnormal labs REBA, RF, dsDNA and referred here. She sees pain management. In walking boot. Stress fracture? Thyroid disease Bladder sling. Family h/o autoimmune diseases - none Smoking - Rheumatology REVIEW OF SYSTEMS: Constitutional: Recent Weight Change: YES losing Fatigue: Fever: No Night sweats: No Heent: Alopecia: YES H/o Inflammatory eye disease (iritis/scleritis): No Hearing loss: No Frequent sinusitis: No Oral ulcers: YES Sicca: YES Parotid swelling: No Hoarseness: No Dysphagia: No Heme/lymph: Lymphadenopathy: No Hematological abnormalities (anemia, thrombocytopenia, leukopenia): No Abnormal bleeding: No Skin: Malar or discoid lesions: No Photosensitivity: No Other rashes: YES cheeks Raynaud's phenomenon: YES Hives: No Tightness: No Nodules/bumps: No Easy Bruising: No Nail changes: No H/o psoriasis: No Gastroenterology: Nausea: {YES Vomiting: YES she will be seeing GI Change in bowel movements: YES Heartburn: No Respiratory: Dry cough/SOB: No SOB sometimes Cardiovascular: Pain in chest: No Musculoskeletal: Per HPI Genitourinary: Vaginal dryness: No Rash/ulcers: No Neurological: Headaches: YES Sensitivity or pain of hands and/or feet: YES Psychiatry: Anxiety: YES Depression: YES Poor sleep: YES chronic, JORDAN on CPAP H/o loss: No H/o thrombosis: No Increased susceptibility to infection: No HISTORY REVIEWED (electronic chart updated): PAST MEDICAL HISTORY Diagnosis Date Acquired hypothyroidism 08/22/2015 ACUTE GASTRITIS W/O HEMORRHAGE 02/05/2006 Advance directive discussed with patient 04/02/2023 Discussed 03/2023: Up to date Anxiety and depression 10/05/2020 Arthritis 05/18/2020 Arthritis of lumbar spine 03/05/2022 Mod Arthritis of right foot 09/02/2018 At high risk for falls 09/02/2018 Backache, unspecified 01/11/2013 Bilateral carotid artery stenosis 09/25/202009/2020 20-40% bilaterally Bipolar I disorder (HCC) 12/20/2005 [facility] Stinger at [facility] Cervical disc disorder with radiculopathy 09/27/2021 Cervical radiculopathy 09/19/2021 Cervical spondylosis 09/19/2021 Seeing pain management Cervical spondylosis without myelopathy 09/27/2021 Cervical stenosis of spinal canal 09/19/2021 Chronic pain of left knee 06/19/2019 Class 1 obesity due to excess calories without serious comorbidity with body mass index (BMI) of 33.0 to 33.9 in adult 03/03/2018 Current use of proton pump inhibitor 03/03/2018 Diaphragmatic hernia without mention of obstruction or gangrene 02/05/2006 Elevated hemoglobin A1c 06/29/2018 Encounter for screening mammogram for breast cancer 03/05/2019 Ex-smoker 08/22/2015 Started at age 14 and has smoked up to 1/2 a PPD, quit 12/2017 External hemorrhoids without mention of complication Gastroesophageal reflux disease with esophagitis 08/22/2015 Gastroparesis 01/30/2023 Hearing loss Hearing aids in both ears. Hiatal hernia 02/19/2023 small History of transient ischemic attack (TIA) 11/05/2019 Incontinence 02/20/[address] Jordan Irritable bowel syndrome with constipation 03/03/2018 Lactose intolerance 03/05/2019 Living will on file at physician's office 04/02/2023 DPA: John () Lung nodules 12/11/2017 CT 12/11/[address] 05/2018 stable needs repeat in 2 yrs Medicare annual wellness visit, subsequent 03/03/2018 Medicare Part B: 06/17/2001 last done: 03/05/2019 Migraine without aura and without status migrainosus, not intractable 05/22/2016 Mixed hyperlipidemia 08/22/2015 JORDAN (obstructive sleep apnea) 09/02/2018 DME [facility]ASCO Osteopenia of lumbar spine 11/27/2020 Borderline on DXA 11/2020 Other constipation 07/21/2019 Overactive bladder 05/30/2015 Primary insomnia 07/30/2018 Primary osteoarthritis of left knee 11/05/2019 RLS (restless legs syndrome) 06/04/2019 S/P total knee arthroplasty, left 10/18/2020 Smoker 08/22/2015 Started at age 14 and has smoked up to 1/2 a PPD, quit 12/2017 Thoracic arthritis 03/05/2022 Mild Vitamin D deficiency 01/25/2020 PAST SURGICAL HISTORY Procedure Laterality Date 48 HOUR PH STUDY 02/19/2023 Dr. Domínguez ARTHROSCOPY KNEE DIAGNOSTIC W/WO SYNOVIAL BX SPX Left 1989' ARTHRS KNE SURG W/MENISCECTOMY MED/LAT W/SHVG Left 12/01/2019 COLONOSCOPY 02/28/2009 COLONOSCOPY 02/04/2018 COLONOSCOPY 08/11/2019 one polyp, repeat 10 yrs COLONOSCOPY 12/10/2022 Hyperplastic rectal polyp CYSTOURETHROSCOPY 10/05/2015 EGD WITH BIOPSY(S) 02/05/2006 EGD WITH BIOPSY(S) 12/21/2014 EGD WITH BIOPSY(S) 03/29/2015 EGD WITH BIOPSY(S) 03/24/2018 Dr. Garcia reported as normal. Neg for Hpylori and celiac. EGD WITH BIOPSY(S) 12/10/2022 Mild nonspecific inflammation in stomach EGD WITH BIOPSY(S) 02/19/2023 small hiatal hernia; Dr. Domínguez EXC/DSTRJ LINGUAL TONSIL ANY METHOD SPX remote MANOMETRY ESOPHAGEAL 02/19/2023 Dr. Britt PAST SURGICAL HISTORY OF 10/05/2015 TOT monarc sling PAST SURGICAL HISTORY OF Left 05/03/2016 ulnar nerve decompression PER ORAL PYLOROMYOTOMY (POP) PROCEDURE (COMP 52135) 05/08/2023 Dr. Domínguez TOTAL KNEE REPLACEMENT Left 10/18/2020 FAMILY HISTORY Problem Relation Age of Onset Cancer Mother Hysterectomy Alcohol/Drug Father Alcoholic other (Leukemia) Sister shortly after Heart Attack Brother x 2 Diabetes Brother Heart Maternal Grandmother Hearing Loss Maternal Grandmother Headache Maternal Grandmother Diabetes Maternal Grandmother Stroke Maternal Grandmother Heart Maternal Grandfather Diabetes Maternal Grandfather No Known Problems Paternal Grandmother No Known Problems Paternal Grandfather Coronary Artery Disease Son Hyperlipidemia Son Hypertension Son Hyperlipidemia Son No Known Problems Son Colon Cancer No Family History Social History Tobacco Use Smoking status: Former Packs/day: 0.50 Years: 40.00 Total pack years: 20.00 Types: Cigarettes Quit date: 01/07/2018 Years since quittin.4 Smokeless tobacco: Never Tobacco comments: used welbutrin Vaping Use Vaping Use: Never used Substance Use Topics Alcohol use: No Drug use: No Current Outpatient Medications Medication Sig gabapentin (NEURONTIN) 600 mg tablet Take 1 tablet by mouth three times daily for 90 days. ezetimibe (ZETIA) 10 mg tablet Take 1 tablet by mouth once daily. levothyroxine (SYNTHROID) 137 mcg tablet Take one daily and two on Friday. rOPINIRole (REQUIP) 1 mg tablet Take one tab by mouth before bed. busPIRone (BUSPAR) 10 mg tablet Take 10 mg by mouth once daily as needed. Food Supplement, Lactose-Free (PROMOTE, OSMOLITE, TWO FABIENNE, ENSURE PLUS, ENLIVE) liqd Take 237 mL by mouth three times daily with meals. plecanatide (TRULANCE) 3 mg tablet Take 1 tablet (3 mg) by mouth once daily. rosuvastatin (CRESTOR) 40 mg tablet Take 1 tablet by mouth daily at bedtime. tiZANidine (ZANAFLEX) 4 mg tablet TAKE 1 PILL UP TO 3 TIMES PER DAY NEEDED FOR PAINFUL MUSCLE SPASMS sucralfate (CARAFATE) 1 gram tablet Take 1 tablet by mouth daily at bedtime. Fenofibrate (LOFIBRA) 54 mg tablet Take 1 tablet by mouth once daily. topiramate (TOPAMAX) 100 mg tablet Take 1 tablet by mouth twice daily. rimegepant (NURTEC ODT) 75 mg disintegrating tablet Take 1 tablet by mouth once daily as needed. cyanocobalamin (VITAMIN B-12) 1,000 mcg tab Take 1 tablet by mouth once daily. ARIPiprazole (ABILIFY) 15 mg tablet Take 15 mg by mouth once daily. pantoprazole DR (PROTONIX) 40 mg tablet Take 1 tablet by mouth twice daily. Take on empty stomach, 1/2 hr before meal. metFORMIN ER (GLUCOPHAGE XR) 500 mg 24 hr tablet Take 1 tablet by mouth daily with breakfast. amitriptyline (ELAVIL) 25 mg tablet Take 1 tablet by mouth daily at bedtime. aspirin, enteric coated (ASPIRIN, ENTERIC COATED) 81 mg EC tablet Take 81 mg by mouth once daily. CPAP Mask fitting and 30 day download for autopap 10 -20 cm H2O & formal mask refitting for medical necessity & schedule with the RT, chin strap, head gear, humidity, heated tubing (SACHI), lifetime supplies. G47.33 JORDAN albuterol HFA (PROVENTIL HFA, VENTOLIN HFA) 90 mcg/actuation inhaler Inhale 2 Puffs as instructed every 4 hours as needed for wheezing/shortness of breath. blood sugar diagnostic (BLOOD GLUCOSE TEST) test strip Test blood sugar(s) 1 times daily. Dx: Other DM Code R73.03 Insulin: No Lancets lancets Test blood sugar(s) 1 times daily. Dx: Other DM Code R73.03 Insulin: No lactase (LACTAID) 3,000 unit tablet Take 1 tablet by mouth three times daily with meals. acetaminophen (TYLENOL ARTHRITIS ORAL) Take 650 mg by mouth every 8 hours as needed. COMPOUNDED PRESCRIPTION Wheeled rolator walker with ahnd breaks and seat, # 1, Dx:M19.071, Z91.071 DULoxetine (CYMBALTA) 30 mg capsule Take 1 capsule by mouth once daily. [facility] No current facility-administered medications for this visit. ALLERGIES Allergen Reactions Ditropan [Oxybutyni* Other: See Comments Nausea,vomiting Benztropine Other: See Comments, Unknown Cogentin [Benztropi* Other: See Comments Blurred vision Depakote [Divalproe* GI Upset Flagyl [Metronidazo* GI Upset Nausea and vomiting Ibuprofen GI Upset Nexium [Esomeprazol* Unknown Oxybutynin Unknown Oxycodone GI Upset, Unknown Percocet [Oxycodone* Other: See Comments Nausea, RDZ, eye swelling Tylenol [Acetaminop* GI Upset diarrhea with high doses REVIEW OF SYSTEMS: All other ROS: negative As noted in HPI PHYSICAL EXAMINATION: VIDEO EXAM: (if completed, performed via video enabled technology) GENERAL: alert and appropriate, in no distress, well-hydrated, well nourished, and happy, smiling, interactive Latest Reference Range & Units Most Recent REBA Negative Positive ! 10/01/22 15:06 REBA Titer 1:160 10/01/22 15:06 REBA Pattern Nuclear homogenous 10/01/22 15:06 DNA Antibody w/Confirmation <30 IU/mL 63.56 (H) 10/01/22 15:06 Anti-FACTORY MAINTENANCE MANAGER <1.0 AI <0.2 10/01/22 15:06 Ribosomal FACTORY MAINTENANCE MANAGER Ab <1.0 AI <0.2 10/01/22 15:06 Anti-SSB <1.0 AI <0.2 10/01/22 15:06 Anti-Sm <1.0 AI <0.2 10/01/22 15:06 Sm Antibody Negative Negative 10/01/22 15:06 Anti-SSA <1.0 AI 0.6 10/01/22 15:06 Scl-70 Abs, EIA <1.0 AI <0.2 10/01/22 15:06 Yulia 1 Antibody <1.0 AI <0.2 10/01/22 15:06 Chromatin Ab <1.0 AI <0.2 10/01/22 15:06 Centromere Ab <1.0 AI <0.2 10/01/22 15:06 Rheumatoid Factor <16 IU/mL 43 (H) 10/01/22 15:06 Ribosomal FACTORY MAINTENANCE MANAGER Qualitative Negative Negative 10/01/22 15:06 FACTORY MAINTENANCE MANAGER Antibody QUAL Negative Negative 10/01/22 15:06 SSA Antibody Qual Negative Negative 10/01/22 15:06 SSB Antibody Qual Negative Negative 10/01/22 15:06 CENTROMERE AB QUAL Negative Negative 10/01/22 15:06 Chromatin Ab Qual Negative Negative 10/01/22 15:06 YULIA 1 ANTIBODY QUAL Negative Negative 10/01/22 15:06 Scleroderma Ab Qual Negative Negative 10/01/22 15:06 !: Data is abnormal (H): Data is abnormally high Latest Reference Range & Units 10/09/22 13:26 Crithidia lucillae Negative Negative Findings: Knee arthroplasty. Alignment appears intact. No perihardware osteolysis. No hardware fracture. No fracture or dislocation. Low-lying patella. No soft tissue abnormality identified. IMPRESSION: Kyphotic cervical curvature in the sagittal plane centered at C6. The cord is draped over the kyphotic curvature, but there is otherwise no substantive canal or foraminal narrowing. Other general findings as noted. Anatomic Variant: None. Assume 7 cervical vertebrae with counting from the craniocervical junction. FINDINGS: No acute fractures or subluxations are noted. The disc spaces are grossly maintained. There is mild osteophyte formation. There is no paraspinal mass or bony destructive process. Others: There are degenerative changes in the lower cervical spine. DEXA 2020 - IMPRESSION: Borderline osteopenia of the lumbar spine. Normal bone density of the left hip. IMPRESSION: Findings are suggestive of degenerative changes in the bilateral hands. FINDINGS: Symmetric bilateral SI joints, without joint space narrowing or widening. No bony erosions seen. No hip joint space narrowing. The mineralization of the bones is normal. There is no significant soft tissue swelling. ASSESSMENT: (E83.52) Hypercalcemia (primary encounter diagnosis) (R76.8) REBA positive PLAN: 62 year old female with chronic pain, was noted to have positive REBA, dsDNA, RF. Patient has severe osteoarthritis of several joints as seen on her x-rays. She has had left knee replacement. She has underwent several treatment procedures to help with neck pain and back pain however has not found much relief. She is currently on several medications to help with pain. Suspicion is low for an inflammatory arthritis. She also has thyroid disease and we see positive serologies in association commonly. update BMD, reports balance issues. Dizziness, low BP. She will d/w PCP. No signs of inflammatory arthritis. Crithidia DNA is negative. No signs of lupus. She has OA. osteopenia. High Ca, high vit d. Repeat labs in 2 months. She sees pain management. There are no Patient Instructions on file for this visit. I spent a total of 20 minutes on the date of the service which included preparing to see the patient, [id number] patient care, completing clinical documentation, obtaining and/or reviewing separately obtained history, performing a medically appropriate examination, ordering medications, tests, or procedures, and communicating results to the patient/family/caregiver MD [facility] on 06/12/23 COMP METABOLIC PANEL VITAMIN D 25 HYDROXY PTH INTACT BLD No orders of the defined types were placed in this encounter. Platform used - my chart documented in this encounter [facility] 06-11-2023 Note [facility] 06-11-2023 History of Present illness Narrative Chief Complaint Patient presents with: Hair/Scalp Problem: Patient has been having hair loss, fatigue and weakness x 1 month HPI Chanda Haq is a 63 year old female who presents here today for Above Complaints.. Patient states she just feels crummy . She reached out and asked for thyroid lab but that came back normal. She states she doesn't have any energy, she feels like her hair is falling out. Has been struggling with weakness. She is starting Ensure sooner to see if will help with her nutrition and energy. Past medical history, appointments, medications, allergies reviewed. Previous Medical History PAST MEDICAL HISTORY Diagnosis Date Acquired hypothyroidism 08/22/2015 ACUTE GASTRITIS W/O HEMORRHAGE 02/05/2006 Advance directive discussed with patient 04/02/2023 Discussed 03/2023: Up to date Anxiety and depression 10/05/2020 Arthritis 05/18/2020 Arthritis of lumbar spine 03/05/2022 Mod Arthritis of right foot 09/02/2018 At high risk for falls 09/02/2018 Backache, unspecified 01/11/2013 Bilateral carotid artery stenosis 09/25/202009/2020 20-40% bilaterally Bipolar I disorder (HCC) 12/20/2005 [facility] Cervical disc disorder with radiculopathy 09/27/2021 Cervical radiculopathy 09/19/2021 Cervical spondylosis 09/19/2021 Seeing pain management Cervical spondylosis without myelopathy 09/27/2021 Cervical stenosis of spinal canal 09/19/2021 Chronic pain of left knee 06/19/2019 Class 1 obesity due to excess calories without serious comorbidity with body mass index (BMI) of 33.0 to 33.9 in adult 03/03/2018 Current use of proton pump inhibitor 03/03/2018 Diaphragmatic hernia without mention of obstruction or gangrene 02/05/2006 Elevated hemoglobin A1c 06/29/2018 Encounter for screening mammogram for breast cancer 03/05/2019 Ex-smoker 08/22/2015 Started at age 14 and has smoked up to 1/2 a PPD, quit 12/2017 External hemorrhoids without mention of complication Gastroesophageal reflux disease with esophagitis 08/22/2015 Gastroparesis 01/30/2023 Hearing loss Hearing aids in both ears. Hiatal hernia 02/19/2023 small History of transient ischemic attack (TIA) 11/05/2019 Incontinence 02/20/[address] Jordan Irritable bowel syndrome with constipation 03/03/2018 Lactose intolerance 03/05/2019 Living will on file at physician's office 04/02/2023 DPA: John () Lung nodules 12/11/2017 CT 12/11/[address] 05/2018 stable needs repeat in 2 yrs Medicare annual wellness visit, subsequent 03/03/2018 Medicare Part B: 06/17/2001 last done: 03/05/2019 Migraine without aura and without status migrainosus, not intractable 05/22/2016 Mixed hyperlipidemia 08/22/2015 JORDAN (obstructive sleep apnea) 09/02/2018 DME DASCO Osteopenia of lumbar spine 11/27/2020 Borderline on DXA 11/2020 Other constipation 07/21/2019 Overactive bladder 05/30/2015 Primary insomnia 07/30/2018 Primary osteoarthritis of left knee 11/05/2019 RLS (restless legs syndrome) 06/04/2019 S/P total knee arthroplasty, left 10/18/2020 Smoker 08/22/2015 Started at age 14 and has smoked up to 1/2 a PPD, quit 12/2017 Thoracic arthritis 03/05/2022 Mild Vitamin D deficiency 01/25/2020 Previous Surgical History PAST SURGICAL HISTORY Procedure Laterality Date 48 HOUR PH STUDY 02/19/2023 Dr. Domínguez ARTHROSCOPY KNEE DIAGNOSTIC W/WO SYNOVIAL BX SPX Left ARTHRS KNE SURG W/MENISCECTOMY MED/LAT W/SHVG Left 12/01/2019 COLONOSCOPY 02/28/2009 COLONOSCOPY 02/04/2018 COLONOSCOPY 08/11/2019 one polyp, repeat 10 yrs COLONOSCOPY 12/10/2022 Hyperplastic rectal polyp CYSTOURETHROSCOPY 10/05/2015 EGD WITH BIOPSY(S) 02/05/2006 EGD WITH BIOPSY(S) 12/21/2014 EGD WITH BIOPSY(S) 03/29/2015 EGD WITH BIOPSY(S) 03/24/2018 Dr. Garcia reported as normal. Neg for Hpylori and celiac. EGD WITH BIOPSY(S) 12/10/2022 Mild nonspecific inflammation in stomach EGD WITH BIOPSY(S) 02/19/2023 small hiatal hernia; Dr. Domínguez EXC/DSTRJ LINGUAL TONSIL ANY METHOD SPX remote MANOMETRY ESOPHAGEAL 02/19/2023 Dr. Britt PAST SURGICAL HISTORY OF 10/05/2015 TOT monarc sling PAST SURGICAL HISTORY OF Left 05/03/2016 ulnar nerve decompression PER ORAL PYLOROMYOTOMY (POP) PROCEDURE (COMP 95603) 05/08/2023 Dr. Domínguez TOTAL KNEE REPLACEMENT Left 10/18/2020 Family History FAMILY HISTORY Problem Relation Age of Onset Cancer Mother Hysterectomy Alcohol/Drug Father Alcoholic other (Leukemia) Sister shortly after Heart Attack Brother x 2 Diabetes Brother Heart Maternal Grandmother Hearing Loss Maternal Grandmother Headache Maternal Grandmother Diabetes Maternal Grandmother Stroke Maternal Grandmother Heart Maternal Grandfather Diabetes Maternal Grandfather No Known Problems Paternal Grandmother No Known Problems Paternal Grandfather Coronary Artery Disease Son Hyperlipidemia Son Hypertension Son Hyperlipidemia Son No Known Problems Son Colon Cancer No Family History Patient Allergies ALLERGIES Allergen Reactions Ditropan [Oxybutyni* Other: See Comments Nausea,vomiting Benztropine Other: See Comments, Unknown Cogentin [Benztropi* Other: See Comments Blurred vision Depakote [Divalproe* GI Upset Flagyl [Metronidazo* GI Upset Nausea and vomiting Ibuprofen GI Upset Nexium [Esomeprazol* Unknown Oxybutynin Unknown Oxycodone GI Upset, Unknown Percocet [Oxycodone* Other: See Comments Nausea, RDZ, eye swelling Tylenol [Acetaminop* GI Upset diarrhea with high doses Current Medications Current Outpatient Medications on File Prior to Visit Medication Sig gabapentin (NEURONTIN) 600 mg tablet Take 1 tablet by mouth three times daily for 90 days. ezetimibe (ZETIA) 10 mg tablet Take 1 tablet by mouth once daily. levothyroxine (SYNTHROID) 137 mcg tablet Take one daily and two on Friday. rOPINIRole (REQUIP) 1 mg tablet Take one tab by mouth before bed. busPIRone (BUSPAR) 10 mg tablet Take 10 mg by mouth once daily as needed. Food Supplement, Lactose-Free (PROMOTE, OSMOLITE, TWO FABIENNE, ENSURE PLUS, ENLIVE) liqd Take 237 mL by mouth three times daily with meals. plecanatide (TRULANCE) 3 mg tablet Take 1 tablet (3 mg) by mouth once daily. rosuvastatin (CRESTOR) 40 mg tablet Take 1 tablet by mouth daily at bedtime. tiZANidine (ZANAFLEX) 4 mg tablet TAKE 1 PILL UP TO 3 TIMES PER DAY NEEDED FOR PAINFUL MUSCLE SPASMS sucralfate (CARAFATE) 1 gram tablet Take 1 tablet by mouth daily at bedtime. Fenofibrate (LOFIBRA) 54 mg tablet Take 1 tablet by mouth once daily. topiramate (TOPAMAX) 100 mg tablet Take 1 tablet by mouth twice daily. rimegepant (NURTEC ODT) 75 mg disintegrating tablet Take 1 tablet by mouth once daily as needed. cyanocobalamin (VITAMIN B-12) 1,000 mcg tab Take 1 tablet by mouth once daily. ARIPiprazole (ABILIFY) 15 mg tablet Take 15 mg by mouth once daily. pantoprazole DR (PROTONIX) 40 mg tablet Take 1 tablet by mouth twice daily. Take on empty stomach, 1/2 hr before meal. metFORMIN ER (GLUCOPHAGE XR) 500 mg 24 hr tablet Take 1 tablet by mouth daily with breakfast. ergocalciferol 50,000 unit capsule (VITAMIN D2, DRISDOL) Take one capsule twice a week (Fri and ) amitriptyline (ELAVIL) 25 mg tablet Take 1 tablet by mouth daily at bedtime. aspirin, enteric coated (ASPIRIN, ENTERIC COATED) 81 mg EC tablet Take 81 mg by mouth once daily. CPAP Mask fitting and 30 day download for autopap 10 -20 cm H2O & formal mask refitting for medical necessity & schedule with the RT, chin strap, head gear, humidity, heated tubing (SACHI), lifetime supplies. G47.33 JORDAN albuterol HFA (PROVENTIL HFA, VENTOLIN HFA) 90 mcg/actuation inhaler Inhale 2 Puffs as instructed every 4 hours as needed for wheezing/shortness of breath. blood sugar diagnostic (BLOOD GLUCOSE TEST) test strip Test blood sugar(s) 1 times daily. Dx: Other DM Code R73.03 Insulin: No Lancets lancets Test blood sugar(s) 1 times daily. Dx: Other DM Code R73.03 Insulin: No lactase (LACTAID) 3,000 unit tablet Take 1 tablet by mouth three times daily with meals. acetaminophen (TYLENOL ARTHRITIS ORAL) Take 650 mg by mouth every 8 hours as needed. COMPOUNDED PRESCRIPTION Wheeled rolator walker with ahnd breaks and seat, # 1, Dx:M19.071, Z91.071 DULoxetine (CYMBALTA) 30 mg capsule Take 1 capsule by mouth once daily. [facility] No current facility-administered medications on file prior to visit. Social History Social History Tobacco Use Smoking status: Former Packs/day: 0.50 Years: 40.00 Total pack years: 20.00 Types: Cigarettes Quit date: 01/07/2018 Years since quittin.4 Smokeless tobacco: Never Tobacco comments: used welbutrin Vaping Use Vaping Use: Never used Substance Use Topics Alcohol use: No Drug use: No Review of Symptoms REVIEW OF SYSTEMS See hpi EXAM: BP 100/80 (BP Site: Left Arm, BP Position: Sitting, BP Cuff Size: Large Adult) Pulse 78 Temp 37.2 C (98.9 F) Resp 16 Wt 84.4 kg (186 lb) BMI 31.93 kg/m General Appearance: Well appearing, alert, in no acute distress, well-hydrated, well nourished.. Lungs: Lungs clear to auscultation. No wheezing, rhonchi, rales.. Heart: RRR without murmur, gallop, or rubs. No ectopy. Health Maintenance List SPIROMETRY Never done ALPHA-1 ANTITRYPSIN DEFICIENCY SCREENING Never done LUNG CANCER SCREENING due on 04/17/2023 MAMMOGRAM due on 08/14/2023 INFLUENZA(1) due on 07/18/2023 DTAP,TDAP,TD(2 - Td or Tdap) due on 08/18/2023 ANNUAL PCP TEAM CHRONIC DISEASE VISIT due on 04/29/2024 DIABETES SCREEN due on 05/10/2026 LIPID SCREEN due on 09/07/2027 COLORECTAL CANCER SCREENING due on 12/10/2027 BONE DENSITY Completed ADVANCE DIRECTIVE DISCUSSION Completed HEPATITIS C SCREENING Completed HIV SCREENING Completed SHINGRIX VACCINE Completed PNEUMOCOCCAL: 65+ Completed PAP TESTING Discontinued COVID-19 VACCINE Discontinued Data reviewed Component Latest Ref Rng & Units 05/10/2023 06/05/2023 WBC 3.70 - 11.00 k/uL 6.59 RBC 3.90 - 5.20 m/uL 3.77 (L) Hemoglobin 11.5 - 15.5 g/dL 11.0 (L) Hematocrit 36.0 - 46.0 % 34.6 (L) MCV 80.0 - 100.0 fL 91.8 MCH 26.0 - 34.0 pg 29.2 MCHC 30.5 - 36.0 g/dL 31.8 RDW-CV 11.5 - 15.0 % 14.6 Platelet Count 150 - 400 k/uL 270 MPV 9.0 - 12.7 fL 10.9 Absolute nRBC <0.01 k/uL <0.01 TSH 0.270 - 4.200 mIU/L 0.553 ASSESSMENT/PLAN: 1. Fatigue, unspecified type - ICD9: 780.79, ICD10: R53.83 (primary diagnosis) Will check labs further. - CBC + DIFF - BASIC METABOLIC PNL - FOLATE SERUM - VITAMIN B12 BLOOD - VITAMIN D 25 HYDROXY - IRON + TIBC - T4 FREE/FREE THYROX - FERRITIN BLD 2. Brain fog - ICD9: 799.59, ICD10: R41.89 - CBC + DIFF - BASIC METABOLIC PNL - FOLATE SERUM - VITAMIN B12 BLOOD - VITAMIN D 25 HYDROXY - IRON + TIBC - T4 FREE/FREE THYROX - FERRITIN BLD 3. Hair loss - ICD9: 704.00, ICD10: L65.9 - CBC + DIFF - BASIC METABOLIC PNL - FOLATE SERUM - VITAMIN B12 BLOOD - VITAMIN D 25 HYDROXY - IRON + TIBC - T4 FREE/FREE THYROX - FERRITIN BLD Olvin Richard PA-C documented in this encounter [facility] 06-09-2023 Note HNO ID: [id number] Author: Abel Domínguez MD Service: ? Author Type: Physician Type: Progress Notes Filed: 06/09/2023 10:11 AM Note Text: [facility] [address] [facility] [place] [address] Abel Domínguez MD Follow up Gastroparesis History of Present Illness: Patient is a 62 year old female whose Body mass index is 32.37 kg/m?. who presents to general surgery clinic for initial consultation. The patient presents with chief complaint of GERD and gastroparesis. They report a history of heartburn, dysphagia, and regurgitation which have been ongoing for 3 +week however has had GERD issues for several years. Exacerbating factors: caffeine/coffee/carbonated beverages and acidic food. Alleviating factors: drinking, sleeping reclined and taking antacids. Additional symptoms: bloating, belching, cramping, diarrhea and constipation . Prior workup: EGD, colonoscopy and CT abdomen. Stopped taking Ozempic. Interval update: S/p endoscopic perioral pyloromyotomy on 05/08/23. Tolerating liquid and soft diet without heartburn, nausea, vomiting or regurgitation. Mild bloating, no belching. Denies cramping. Patient states most of her symptoms are resolved after the POP and feeling much better. She wants to try more solid food with protein. Review of Systems: Review of Systems HENT: Negative. Eyes: Negative. Respiratory: Negative. Cardiovascular: Negative. Gastrointestinal: Positive for constipation. Negative for abdominal pain, heartburn, nausea and vomiting. Genitourinary: Negative. Musculoskeletal: Negative. Skin: Negative. Neurological: Negative. Endo/Heme/Allergies: Negative. Psychiatric/Behavioral: Negative. 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 at [facility] Cervical disc disorder with radiculopathy 09/27/2021 Cervical radiculopathy 09/19/2021 Cervical spondylosis 09/19/2021 Seeing pain management Cervical spondylosis without myelopathy 09/27/2021 Cervical stenosis of spinal canal 09/19/2021 Chronic pain of left knee 06/19/2019 Class 1 obesity due to excess calories without serious comorbidity with body mass index (BMI) of 33.0 to 33.9 in adult 03/03/2018 Current use of proton pump inhibitor 03/03/2018 Diaphragmatic hernia without mention of obstruction or gangrene 02/05/2006 Elevated hemoglobin A1c 06/29/2018 Encounter for screening mammogram for breast cancer 03/05/2019 Ex-smoker 08/22/2015 Started at age 14 and has smoked up to 1/2 a PPD, quit 12/2017 External hemorrhoids without mention of complication Gastroesophageal reflux disease with esophagitis 08/22/2015 Gastroparesis 01/30/2023 Hearing loss Hearing aids in both ears. Hiatal hernia 02/19/2023 small History of transient ischemic attack (TIA) 11/05/2019 Incontinence 02/20/[address] Jordan Irritable bowel syndrome with constipation 03/03/2018 Lactose intolerance 03/05/2019 Living will on file at physician's office 04/02/2023 DPA: John () Lung nodules 12/11/2017 CT 12/11/[address] 05/2018 stable needs repeat in 2 yrs Medicare annual wellness visit, subsequent 03/03/2018 Medicare Part B: 06/17/2001 last done: 03/05/2019 Migraine without aura and without status migrainosus, not intractable 05/22/2016 Mixed hyperlipidemia 08/22/2015 JORDAN (obstructive sleep apnea) 09/02/2018 DME DASCO Osteopenia of lumbar spine 11/27/2020 Borderline on DXA 11/2020 Other constipation 07/21/2019 Overactive bladder 05/30/2015 Primary insomnia 07/30/2018 Primary osteoarthritis of left knee 11/05/2019 RLS (restless legs syndrome) 06/04/2019 S/P total knee arthroplasty, left 10/18/2020 Smoker 08/22/2015 Started at age 14 and has smoked up to 1/2 a PPD, quit 12/2017 Thoracic arthritis 03/05/2022 Mild Vitamin D deficiency 01/25/2020 Past Surgical History: PAST SURGICAL HISTORY Procedure Laterality Date 48 HOUR PH STUDY 02/19/2023 Dr. Domínguez ARTHROSCOPY KNEE DIAGNOSTIC W/WO SYNOVIAL BX SPX Left ARTHRS KNE SURG W/MENISCECTOMY MED/LAT W/SHVG Left 12/01/2019 COLONOSCOPY 02/28/2009 COLONOSCOPY 02/04/2018 COLONOSCOPY 08/11/2019 one polyp, repeat 10 yrs COLONOSCOPY 12/10/2022 Hyperplastic rectal polyp CYSTOURETHROSCOPY 10/05/2015 EGD WITH BIOPSY(S) 02/05/2006 EGD WITH BIOPSY(S) 12/21/2014 EGD WITH BIOPSY(S) 03/29/2015 EGD WITH BIOPSY(S) 03/24/2018 Dr. Garcia reported as n (more content not included)... [facility] 06-09-2023 History of Present illness Narrative Images from the original note were not included. [facility] [address] [facility] [place] [address] Abel Domínguez MD Follow up Gastroparesis History of Present Illness: Patient is a 62 year old female whose Body mass index is 32.37 kg/m . who presents to general surgery clinic for initial consultation. The patient presents with chief complaint of GERD and gastroparesis. They report a history of heartburn, dysphagia, and regurgitation which have been ongoing for 3 +week however has had GERD issues for several years. Exacerbating factors: caffeine/coffee/carbonated beverages and acidic food. Alleviating factors: drinking, sleeping reclined and taking antacids. Additional symptoms: bloating, belching, cramping, diarrhea and constipation . Prior workup: EGD, colonoscopy and CT abdomen. Stopped taking Ozempic. Interval update: S/p endoscopic perioral pyloromyotomy on 05/08/23. Tolerating liquid and soft diet without heartburn, nausea, vomiting or regurgitation. Mild bloating, no belching. Denies cramping. Patient states most of her symptoms are resolved after the POP and feeling much better. She wants to try more solid food with protein. Review of Systems: Review of Systems HENT: Negative. Eyes: Negative. Respiratory: Negative. Cardiovascular: Negative. Gastrointestinal: Positive for constipation. Negative for abdominal pain, heartburn, nausea and vomiting. Genitourinary: Negative. Musculoskeletal: Negative. Skin: Negative. Neurological: Negative. Endo/Heme/Allergies: Negative. Psychiatric/Behavioral: Negative. 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 at the [facility] Cervical disc disorder with radiculopathy 09/27/2021 Cervical radiculopathy 09/19/2021 Cervical spondylosis 09/19/2021 Seeing pain management Cervical spondylosis without myelopathy 09/27/2021 Cervical stenosis of spinal canal 09/19/2021 Chronic pain of left knee 06/19/2019 Class 1 obesity due to excess calories without serious comorbidity with body mass index (BMI) of 33.0 to 33.9 in adult 03/03/2018 Current use of proton pump inhibitor 03/03/2018 Diaphragmatic hernia without mention of obstruction or gangrene 02/05/2006 Elevated hemoglobin A1c 06/29/2018 Encounter for screening mammogram for breast cancer 03/05/2019 Ex-smoker 08/22/2015 Started at age 14 and has smoked up to 1/2 a PPD, quit 12/2017 External hemorrhoids without mention of complication Gastroesophageal reflux disease with esophagitis 08/22/2015 Gastroparesis 01/30/2023 Hearing loss Hearing aids in both ears. Hiatal hernia 02/19/2023 small History of transient ischemic attack (TIA) 11/05/2019 Incontinence 02/20/[address] Jordan Irritable bowel syndrome with constipation 03/03/2018 Lactose intolerance 03/05/2019 Living will on file at physician's office 04/02/2023 DPA: John () Lung nodules 12/11/2017 CT 12/11/[address] 05/2018 stable needs repeat in 2 yrs Medicare annual wellness visit, subsequent 03/03/2018 Medicare Part B: 06/17/2001 last done: 03/05/2019 Migraine without aura and without status migrainosus, not intractable 05/22/2016 Mixed hyperlipidemia 08/22/2015 JORDAN (obstructive sleep apnea) 09/02/2018 DME DASCO Osteopenia of lumbar spine 11/27/2020 Borderline on DXA 11/2020 Other constipation 07/21/2019 Overactive bladder 05/30/2015 Primary insomnia 07/30/2018 Primary osteoarthritis of left knee 11/05/2019 RLS (restless legs syndrome) 06/04/2019 S/P total knee arthroplasty, left 10/18/2020 Smoker 08/22/2015 Started at age 14 and has smoked up to 1/2 a PPD, quit 12/2017 Thoracic arthritis 03/05/2022 Mild Vitamin D deficiency 01/25/2020 Past Surgical History: PAST SURGICAL HISTORY Procedure Laterality Date 48 HOUR PH STUDY 02/19/2023 Dr. Domínguez ARTHROSCOPY KNEE DIAGNOSTIC W/WO SYNOVIAL BX SPX Left ARTHRS KNE SURG W/MENISCECTOMY MED/LAT W/SHVG Left 12/01/2019 COLONOSCOPY 02/28/2009 COLONOSCOPY 02/04/2018 COLONOSCOPY 08/11/2019 one polyp, repeat 10 yrs COLONOSCOPY 12/10/2022 Hyperplastic rectal polyp CYSTOURETHROSCOPY 10/05/2015 EGD WITH BIOPSY(S) 02/05/2006 EGD WITH BIOPSY(S) 12/21/2014 EGD WITH BIOPSY(S) 03/29/2015 EGD WITH BIOPSY(S) 03/24/2018 Dr. Garcia reported as normal. Neg for Hpylori and celiac. EGD WITH BIOPSY(S) 12/10/2022 Mild nonspecific inflammation in stomach EGD WITH BIOPSY(S) 02/19/2023 small hiatal hernia; Dr. Domínguez EXC/DSTRJ LINGUAL TONSIL ANY METHOD SPX remote MANOMETRY ESOPHAGEAL 02/19/2023 Dr. Britt PAST SURGICAL HISTORY OF 10/05/2015 TOT monarc sling PAST SURGICAL HISTORY OF Left 05/03/2016 ulnar nerve decompression PER ORAL PYLOROMYOTOMY (POP) PROCEDURE (COMP 25386) 05/08/2023 Dr. Domínguez TOTAL KNEE REPLACEMENT Left 10/18/2020 Current Medications: Current Outpatient Medications Medication Sig gabapentin (NEURONTIN) 600 mg tablet Take 1 tablet by mouth three times daily for 90 days. ezetimibe (ZETIA) 10 mg tablet Take 1 tablet by mouth once daily. levothyroxine (SYNTHROID) 137 mcg tablet Take one daily and two on Friday. rOPINIRole (REQUIP) 1 mg tablet Take one tab by mouth before bed. busPIRone (BUSPAR) 10 mg tablet Take 10 mg by mouth once daily as needed. Food Supplement, Lactose-Free (PROMOTE, OSMOLITE, TWO FABIENNE, ENSURE PLUS, ENLIVE) liqd Take 237 mL by mouth three times daily with meals. plecanatide (TRULANCE) 3 mg tablet Take 1 tablet (3 mg) by mouth once daily. rosuvastatin (CRESTOR) 40 mg tablet Take 1 tablet by mouth daily at bedtime. tiZANidine (ZANAFLEX) 4 mg tablet TAKE 1 PILL UP TO 3 TIMES PER DAY NEEDED FOR PAINFUL MUSCLE SPASMS sucralfate (CARAFATE) 1 gram tablet Take 1 tablet by mouth daily at bedtime. Fenofibrate (LOFIBRA) 54 mg tablet Take 1 tablet by mouth once daily. topiramate (TOPAMAX) 100 mg tablet Take 1 tablet by mouth twice daily. rimegepant (NURTEC ODT) 75 mg disintegrating tablet Take 1 tablet by mouth once daily as needed. cyanocobalamin (VITAMIN B-12) 1,000 mcg tab Take 1 tablet by mouth once daily. ARIPiprazole (ABILIFY) 15 mg tablet Take 15 mg by mouth once daily. metFORMIN ER (GLUCOPHAGE XR) 500 mg 24 hr tablet Take 1 tablet by mouth daily with breakfast. ergocalciferol 50,000 unit capsule (VITAMIN D2, DRISDOL) Take one capsule twice a week (Fri and ) amitriptyline (ELAVIL) 25 mg tablet Take 1 tablet by mouth daily at bedtime. aspirin, enteric coated (ASPIRIN, ENTERIC COATED) 81 mg EC tablet Take 81 mg by mouth once daily. CPAP Mask fitting and 30 day download for autopap 10 -20 cm H2O & formal mask refitting for medical necessity & schedule with the RT, chin strap, head gear, humidity, heated tubing (SACHI), lifetime supplies. G47.33 JORDAN albuterol HFA (PROVENTIL HFA, VENTOLIN HFA) 90 mcg/actuation inhaler Inhale 2 Puffs as instructed every 4 hours as needed for wheezing/shortness of breath. blood sugar diagnostic (BLOOD GLUCOSE TEST) test strip Test blood sugar(s) 1 times daily. Dx: Other DM Code R73.03 Insulin: No Lancets lancets Test blood sugar(s) 1 times daily. Dx: Other DM Code R73.03 Insulin: No lactase (LACTAID) 3,000 unit tablet Take 1 tablet by mouth three times daily with meals. acetaminophen (TYLENOL ARTHRITIS ORAL) Take 650 mg by mouth every 8 hours as needed. COMPOUNDED PRESCRIPTION Wheeled rolator walker with ahnd breaks and seat, # 1, Dx:M19.071, Z91.071 DULoxetine (CYMBALTA) 30 mg capsule Take 1 capsule by mouth once daily. [facility] pantoprazole DR (PROTONIX) 40 mg tablet Take 1 tablet by mouth twice daily. Take on empty stomach, 1/2 hr before meal. No current facility-administered medications for this visit. Allergies: Ditropan [Oxybutynin Chloride], Benztropine, Cogentin [Benztropine Mesylate], Depakote [Divalproex Sodium], Flagyl [Metronidazole Hcl], Ibuprofen, Nexium [Esomeprazole Magnesium], Oxybutynin, Oxycodone, Percocet [Oxycodone-Acetaminophen], and Tylenol [Acetaminophen] Family Medical History: FAMILY HISTORY Problem Relation Age of Onset Cancer Mother Hysterectomy Alcohol/Drug Father Alcoholic other (Leukemia) Sister shortly after Heart Attack Brother x 2 Diabetes Brother Heart Maternal Grandmother Hearing Loss Maternal Grandmother Headache Maternal Grandmother Diabetes Maternal Grandmother Stroke Maternal Grandmother Heart Maternal Grandfather Diabetes Maternal Grandfather No Known Problems Paternal Grandmother No Known Problems Paternal Grandfather Coronary Artery Disease Son Hyperlipidemia Son Hypertension Son Hyperlipidemia Son No Known Problems Son Colon Cancer No Family History Social History: Social History Tobacco Use Smoking status: Former Packs/day: 0.50 Years: 40.00 Total pack years: 20.00 Types: Cigarettes Quit date: 01/07/2018 Years since quittin.4 Smokeless tobacco: Never Tobacco comments: used welbutrin Vaping Use Vaping Use: Never used Substance Use Topics Alcohol use: No Drug use: No Physical Examination: BP 113/62 (BP Site: Left Arm, BP Position: Sitting, BP Cuff Size: Large Adult) Pulse 71 Ht 162.6 cm (5' 4 ) Wt 85.5 kg (188 lb 9.6 oz) BMI 32.37 kg/m Body mass index is 32.37 kg/m . Physical Exam Constitutional: Appearance: Normal appearance. HENT: Head: Normocephalic and atraumatic. Nose: Nose normal. Mouth/Throat: Mouth: Mucous membranes are moist. Eyes: Extraocular Movements: Extraocular movements intact. Pupils: Pupils are equal, round, and reactive to light. Cardiovascular: Rate and Rhythm: Normal rate. Pulses: Normal pulses. Pulmonary: Effort: Pulmonary effort is normal. Abdominal: Palpations: Abdomen is soft. Musculoskeletal: General: Normal range of motion. Cervical back: Normal range of motion and neck supple. Skin: General: Skin is warm and dry. Neurological: General: No focal deficit present. Mental Status: She is alert and oriented to person, place, and time. Psychiatric: Mood and Affect: Mood normal. Behavior: Behavior normal. Radiologic/Endoscopic/Laboratory Studies to Date EGD 02/19/23- shows 4 cm gastric diverticulum, hill grade hiatal hernia 2, some retained food CT abdomen/pelvis 12/27/22 Gastric diverticulum and colitis Manometry: IRP 11 mmHg, 90% of swallows intact, neg for achalasia 02/19/23 Ozuna 02/19/23 shows elevated Demeester 17 consistent with acid reflux GES 01/30/23 shows 21-35% retained food at 4 hours consistent with moderate gastroparesis Assessment: Patient is a 62 year old female with refractory gastroparesis and large gastric diverticulum s/p endoscopic pyloromyotomy on 05/08/23 ASSESSMENT/PLAN: 1. Gastroparesis - ICD9: 536.3, ICD10: K31.84 (primary diagnosis) GES at 3 months post op 2. Gastroesophageal reflux disease with esophagitis without hemorrhage - ICD9: 530.81, 530.10, ICD10: K21.00 Continue PPI Stop carafate 3. Gastric diverticulum - ICD9: 537.1, ICD10: K31.4 Follow up in 3 months after GES Abel Domínguez MD MS Advanced Minimally Invasive and Bariatric Surgery documented in this encounter [facility] 06-05-2023 Note HNO ID: [id number] Author: Jenna Early APRN.DATABASE SECURITY EXPERT Service: ? Author Type: Nurse Practitioner Type: Progress Notes Filed: 06/05/2023 1:19 PM Note Text: [facility] [place] [facility] Today's Date:06/05/2023 Last Visit: 03/13/2023 Name: Chanda Haq : 1960 Purpose: Established Patient Encounter Patient presents with: Follow Up History of Present Illness: Chanda Haq 63 year old female with complaints of chronic neck pain.Patient stating she feels her neck is doing better than it has been doing in the past. Patient states she has been seeing the chiropractor and he has been releasing her neck which is helping her to keep her neck more upright. Patient has had injections in the past with no relief is not interested in proceeding with any other injections. Pt has surgery on her stomach to help with the gastroparesis,she received oxycodone post op. Pt is currently on liquid diet. Patient states since the surgery she is swallowing better and she is doing better overall. Patient is looking forward to increasing her diet. Pt is complaining of severe fatigue and weakness.Patient states she is having her TSH checked today as she believes her levels are off due to the constant nausea and vomiting that was she had prior to having surgery. New Problems: none Pertinent Past Medical History: migraine, RLS, cervical radiculopathy, JORDAN, GERD, IBS, Gastroparesis, hypothyroidism, osteopenia lumbar spin,e scoliosis, dropped head syndrome, anxiety/depression, bipolar disorder Plan from Previous Office Visit: 62 year old female, who presents with complaint(s) of neck pain and medication refills. Today she reports she has continued neck stiffness and tightness. The Tizanidine is helpful. PT made her feel worse. She started Chiropractics, but this has been on hold due to GI distress, being worked-up. Reports heat and ice with massage therapy is helpful. Shoulder RFA not recommended due to her inflammatory response after cervical RFA in the past. TPI, ANJU without meaningful pain relief Chanda Haq would benefit from the following to decrease pain, improve function and/or work participation, and improve quality of life: Medications: Refill: Gabapentin - increase from 400 mg TID to 500mg TID (will add 100mg pill to avoid increasing to a larger pill (600mg) until after GI is resolved, as there are some swallowing concerns) Continued Tizanidine 4 mg prn TID Functional Anglican: none Additional Studies: none Referrals: none Additional: Medication use(s) and side effects reviewed with patient today with verbalized understanding. Patient is happy and agreeable with this plan. All questions were answered and patient verbalized understanding. Depending on response to the above plan, consider: Increase Neurontin to 600mg TID Follow-up: 2-3 months Pain Procedures: Date Procedure relief 07/04/2022 Right Shoulder (Fluoro-guided) No relief 06/20/2022 MBB Left C4-7 + steroids No relief 06/06/2022 MBB Right C4-7 + steroids 90% x 4 hours 04/03/2022 RFA Left C3-4,4-5,5-6 No relief (had flare-up afterwards) 03/20/2022 RFA Right C3-4,4-5,5-6 No relief (had flare-up afterwards) 01/02/2022 MBB Bilat C3-6 (Lido) 100% x 6 hours (positive diagnostic) 12/19/2021 MBB Bilat C3-6 (Bupi) 100% x 6 hours (positive diagnostic) 09/13/2021 ILESI C7-T1 No relief 07/26/2021 TPI No relief INTAKE PAIN ASSESSMENT 06/02/2023 06/05/2023 Are you having pain associated with your visit today? No Yes, Provider notified Pain Scales - Verbal (Numeric Rating or Visual Analog Scale) Pain Level - 7 Pain Location - Neck Description - Aching Duration Amount of Time - - Duration Units - Years Frequency - Continuous Intervention/Comfort measure - Cold;Heat Comments - - Pain Assessment - - Pain Description: Timing: constant Character: Aching Primary Location: Neck Pain Radiation: Into her shoulders Exacerbating factors: activity Relieving factors: ice , heat, and massage Interferes with: ADL's The patient reports she is sleeping better The patient denies difficulty with bowel or bladder control CURRENT Pain Medications: Membrane Stabilizers: Topamax (Topiramate) gabapentin NSAIDS: none Opioids: none Muscle Relaxants: Zanaflex (Tizanidine) Topicals: none Other Prescription or OTC Pain Medications: Tylenol (Acetaminophen) Anti-depressants: Cymbalta Non-Pain Meds of Note: none Compliance: PDMP website checked and validated. All prescriptions have been APPROPRIATELY filled. No suspicious activity was identified. 06/03/2023 by Jenna Early APRN.DATABASE SECURITY EXPERT Last Drug screen: Not Applicable Pill Count: No question data found. Risk Assessment: Opioid Risk Tool: Opioid Risk Tool: (0-3, low risk or no risk; 4-7, moderate risk, 8+, high risk) ALISSA-7: ALISSA - 7 SCORES 11/15/2021 07/03/2022 07/09/2022 ALISSA-7 Score 6 0 0 (0-4) minimal (more content not included)... [facility] 06-05-2023 Note HNO ID: [id number] Author: Nirmala Sinha MA Service: ? Author Type: Manufacture Specialist Type: Progress Notes Filed: 06/05/2023 1:19 PM Note Text: Review of Systems Constitutional: Positive for activity change. Negative for chills, fever and unexpected weight change. Gastrointestinal: Negative for bowel retention or incontinence Genitourinary: Negative for difficulty urinating. Negative for bladder retention or incontinence Musculoskeletal: Positive for back pain, neck pain and neck stiffness. Negative for arthralgias, gait problem, joint swelling and myalgias. Neurological: Positive for weakness and headaches. Negative for numbness. Psychiatric/Behavioral: Positive for dysphoric mood and sleep disturbance. Negative for suicidal ideas. The patient is nervous/anxious. [facility] 05-26-2023 Miscellaneous Notes Patient has been identified by name and date of : Yes Patient phones for refill(s): Requested Prescriptions Pending Prescriptions Disp Refills ezetimibe (ZETIA) 10 mg tablet 90 tablet 1 Sig: Take 1 tablet by mouth once daily. Date of last office visit in primary care: [facility] 04/29/23 NOV 07/30/23 Last 2 Encounter Wt Readings: Date: Wt: 05/08/2023 85.5 kg (188 lb 7.9 oz) 04/29/2023 88 kg (194 lb) Please advise. Thank you. YAHAIRA Matos documented in this encounter [facility] 05-12-2023 Miscellaneous Notes The following approved medication requests have been transmitted electronically. Requested Prescriptions Signed Prescriptions Disp Refills levothyroxine (SYNTHROID) 137 mcg tablet 34 tablet 5 Sig: Take one daily Mon-Fri and two on Friday. rOPINIRole (REQUIP) 1 mg tablet 90 tablet 1 Sig: Take one tab by mouth before bed. Kyle Sylvester MD Last refill Requip 09/02/22 Qty: 90 with 1 refill Last refill levothyroxine 04/16/22 Qty: 34 with 5 refills LAKESHA 04/29/23 NOV 07/30/23 Jennifer Nesbitt LPN documented in this encounter [facility] 05-10-2023 Note HNO ID: [id number] Author: Sravanthi Vora DO Service: General Surgery Author Type: Resident Type: Progress Notes Filed: 05/10/2023 8:27 AM Note Text: ---- Attestation signed by Arias Mccauley MD at 05/10/2023 9:07 AM I personally saw and examined the patient. I reviewed the resident's note. I agree with the resident's assessment and plan except as noted below. Plan of care discussed with: Provider, RN, Patient. ---- [facility] ([facility]) Progress Note SERVICE DATE: May 10, 2023 Elect[facility] General Surgery (Green Surgery) Service Pager: For questions or concerns Fri-Fri 6a-5p please page [phone]. After 5pm and on Weekends and Holidays, please page [phone]. SUBJECTIVE: Pt seen this morning. Some mild nausea, no vomiting. She is anxious to go home. Tolerating diet DIET NPO OBJECTIVE: Vitals: Temp (24hrs), Av.9 ?C (98.4 ?F), Min:36.6 ?C (97.9 ?F), Max:37.1 ?C (98.8 ?F) BP 101/61 Pulse 73 Temp 37 ?C (98.6 ?F) (Oral) Resp 18 Ht 162.6 cm (5' 4 ) Wt 85.5 kg (188 lb 7.9 oz) SpO2 93% BMI 32.35 kg/m? O2 Therapy: Room Air IANDO: Date 05/09/23699 - 05/10/2365805/10/23 07 - 05/11/23 0659 Shift 3100-7051 0794-5812 0024-8803 24 Hour Total 0675-7566 0909-7256 7173-1327 24 Hour Total INTAKE PO 30 30 60 PO 30 30 60 IV 200 1000 1200 Volume (mL) (potassium chloride iv piggyback 20 mEq/100 mL) 200 200 Volume (mL) (lactated ringers iv infusion) 1000 1000 Shift Total 200 1030 30 1260 OUTPUT Urine Urine Not Saved. 2 x 2 x 4 x Shift Total Weight (kg) 85.5 85.5 85.5 85.5 85.5 85.5 85.5 85.5 MEDICATIONS: Current Facility-Administered Medications Medication Dose Route Frequency oxymetazoline 0.05 % 1 [place] (GENASAL) 1 Center [place] EACH NOSTRIL BID PRN ARIPiprazole 15 mg tab(s) (ABILIFY) 15 mg ORAL DAILY gabapentin 400 mg cap(s) (NEURONTIN) 400 mg ORAL TID rimegepant ODT 75 mg (NURTEC ODT) 75 mg ORAL DAILY PRN rOPINIRole 1 mg tab(s) (REQUIP) 1 mg ORAL AT BEDTIME levothyroxine (SYNTHROID) tab(s) 137 mcg 137 mcg ORAL DAILY (6 AM) NaCl 0.9% iv flush bag 20 mL INTRAVENOUS PRN lactated ringers iv infusion 75 mL/hr INTRAVENOUS CONTINUOUS acetaminophen 325 mg tab(s) (TYLENOL) 325 mg ORAL q 6 H PRN ondansetron (PF) 4 mg injection (ZOFRAN) 4 mg INTRAVENOUS q 6 H enoxaparin 40 mg injection (LOVENOX) 40 mg SUBCUTANEOUS q 24 HR pantoprazole 40 mg injection (PROTONIX) 40 mg INTRAVENOUS DAILY (6 AM) gabapentin 100 mg cap(s) (NEURONTIN) 100 mg ORAL TID morphine 2 mg injection 2 mg INTRAVENOUS q 4 H PRN oxyCODONE IR 5-10 mg tab(s) (ROXICODONE) 5-10 mg ORAL q 6 H PRN Labs: Recent Labs 05/10/23 0222 05/09/23 0330 NA 138 140 K -- 3.4* CHLOR 106* 109* CO2 21* 21* BUN 11 13 CREAT 0.67 0.78 GLUC 89 102* ANION 11 10 CA 8.6 9.0 WBC 6.59 8.25 HB 11.0* 11.0* HCT 34.6* 34.7* PLT 270 290 Physical Exam: GENERAL: resting comfortably, in no acute distress HEENT: normocephalic, atraumatic, EOMI NECK: trachea midline, no JVD LUNGS: Unlabored breathing, equal chest rise bilaterally, on room air CARDIAC: Regular rate, warm extremities, good perfusion throughout ABDOMEN: Soft, non-tender, non-distended. No rebound or guarding. EXTREMITIES: LEO, No deformities, No edema SKIN: Skin color, texture, turgor normal, No rashes or lesions NEURO: AANDOx3, CN II-XII grossly intact PSYCH: normal mood and affect ASSESSMENT AND PLAN: Assessment Active Hospital Problems Diagnosis Date Noted Pre-op examination 09/15/2019 Assessment: 63 year old female with below medical hx who underwent POP 05/08, which was complicated by only partial closure of the mucosotomy, prompting observation instead of discharge. Hospital Course/Operations/Procedures: 05/08/23 Endoscopic per oral pyloromyotomy Plan: Refractory gastroparesis s/p Endoscopic POP, partially closed mucosectomy NPO with meds only, IVF Plan for UGI today Pain and nausea control Will plan to d/c home on liquids if UGI negative PPI DVT ppx: SCD/LVX Discussed with attending: Dr. Mccauley continuous pickling line pickler helper for Dr. Domínguez Follow up needs: TBD SIGNATURE: Sravanthi Vora DO PATIENT NAME: Chanda Haq DATE: May 10, 2023 TIME: 8:26 AM Pager: see below [facility] General Surgery ([facility] Surgery) Service Pager: For questions or concerns Mon-Fri 6a-5p please page [phone]. After 5pm and on Weekends and Holidays, please page [phone] if in ICU or [phone] if on RNF. [facility] 05-09-2023 Note HNO ID: [id number] Author: Susi Jimenez RN Service: Care Management Author Type: Registered Nurse Type: Care Mgt Initial Assessment Filed: 05/09/2023 4:15 PM Note Text: CARE MANAGEMENT: ASSESSMENT AND DISCHARGE PLAN SERVICE DATE: May 09, 2023 SERVICE TIME: 4:10 PM PCP: Kyle Sylvester MD Primary Contact: Extended Emergency Contact Information Primary Emergency Contact: John Haq Address: [address] [place] [address] Relation: Spouse Secondary Emergency Contact: Jin Haq Mobile Relation: Son Admission Status: To Come In Insurance Provider: [facility] DUAL COMPLETE HMO POS SNP Discharge Planning requested by: Per Department Practice Potential Transition Plans Home Advance Directives Current Living Arrangements and Support Lives with: Spouse/significant other Type of Residence: Private Residence (House) Support: Spouse/significant other How do you manage to accomplish the following: Independent: Ambulation;Bathe/Shower;Dress;Meals/Me al Prep;Going to the bathroom;Medication Management Dependent: Transportation to appointments/community Current Services/Equipment Current Post-Acute Service(s): None Discharge Planning Patient Goal(s): Be able to go home [place] Explained: [place] of Choice Given: No Reason Not Given: No placements necessary Are you interested in bedside delivery of your medications? No Discharge Planning Participant(s): Patient Patient/Family Comments: Caregiver Assessment: Caregiver is ready, willing and able to meet the patient's needs as recommended by the inter-professional team: Yes Name of Caregiver: John Transport at Discharge: Transportation Arrangements: Car Needs Prior to Discharge: Needs Prior to Discharge: Procedure Procedure Needed: swallow eval Post-Acute Discharge Plan: Plan for swallow eval with contrast to check stomach/ procedure function. Then advance diet, then DC home. Pt has PCP, [facility]. Spouse John to provide ride home. SIGNATURE: Susi Jimenez RN PATIENT NAME: Chanda Haq DATE: May 09, 2023 TIME: 4:10 PM CONTACT #: [phone] [facility] 05-09-2023 Note HNO ID: [id number] Author: Eliud Sadler DO Service: General Surgery Author Type: Resident Type: Progress Notes Filed: 05/09/2023 10:49 AM Note Text: ---- Attestation signed by Abel Domínguez MD at 05/09/2023 2:49 PM Attending Note I evaluated the patient and personally participated in the ceja components. I agree with the resident's findings and plan with the following revisions and/or additions: Keep NPO except meds, IVF Plan for UGI tomorrow, if no leak then plan for FLD and possible discharge tomorrow Signature: Abel Domínguez MD Date: 05/09/2023 Time: 2:49 PM ---- Elective General Surgery (Green Surgery) Progress Note SERVICE DATE: May 09, 2023 Elective General Surgery (Green Surgery) Service Pager: For questions or concerns Mon-Fri 6a-5p please page [phone]. After 5pm and on Weekends and Holidays, please page [phone]. SUBJECTIVE: Seen and examined this morning, states her abdominal pain is slowly improving. Denies any Nausea or emesis. Tolerating diet DIET NPO Nausea No Emesis No Flatus No Bowel movement No Pain Controlled Yes Ambulating Yes OBJECTIVE: Vitals: Temp (24hrs), Av.7 ?C (98 ?F), Min:36 ?C (96.8 ?F), Max:37.1 ?C (98.8 ?F) BP 100/55 Pulse 62 Temp 37.1 ?C (98.8 ?F) (Oral) Resp 18 Ht 162.6 cm (5' 4 ) Wt 85.5 kg (188 lb 7.9 oz) SpO2 98% BMI 32.35 kg/m? O2 Therapy: Nasal Cannula IANDO: Date 05/08/23699 - 05/09/2365805/09/23699 - 05/10/23 0659 Shift 2210-2334 2139-6033 0193-3753 24 Hour Total 5580-8256 0055-7499 2570-0817 24 Hour Total INTAKE IV 1100 1100 Volume (mL) (lactated ringers iv infusion) 800 800 Volume (mL) (lactated ringers iv infusion) 300 300 Shift Total 1100 1100 OUTPUT Urine Urine Not Saved. 3 x 1 x 4 x Shift Total Weight (kg) 88 85.5 85.5 85.5 85.5 85.5 85.5 85.5 MEDICATIONS: Current Facility-Administered Medications Medication Dose Route Frequency ARIPiprazole 15 mg tab(s) (ABILIFY) 15 mg ORAL DAILY gabapentin 400 mg cap(s) (NEURONTIN) 400 mg ORAL TID rimegepant ODT 75 mg (NURTEC ODT) 75 mg ORAL DAILY PRN rOPINIRole 1 mg tab(s) (REQUIP) 1 mg ORAL AT BEDTIME levothyroxine (SYNTHROID) tab(s) 137 mcg 137 mcg ORAL DAILY (6 AM) NaCl 0.9% iv flush bag 20 mL INTRAVENOUS PRN lactated ringers iv infusion 75 mL/hr INTRAVENOUS CONTINUOUS acetaminophen 325 mg tab(s) (TYLENOL) 325 mg ORAL q 6 H PRN ondansetron (PF) 4 mg injection (ZOFRAN) 4 mg INTRAVENOUS q 6 H enoxaparin 40 mg injection (LOVENOX) 40 mg SUBCUTANEOUS q 24 HR pantoprazole 40 mg injection (PROTONIX) 40 mg INTRAVENOUS DAILY (6 AM) gabapentin 100 mg cap(s) (NEURONTIN) 100 mg ORAL TID morphine 2 mg injection 2 mg INTRAVENOUS q 4 H PRN oxyCODONE IR 5-10 mg tab(s) (ROXICODONE) 5-10 mg ORAL q 6 H PRN Labs: Recent Labs 05/09/23 0330 05/08/23 2130 NA 140 139 K 3.4* -- CHLOR 109* 108* CO2 21* 20* BUN 13 15 CREAT 0.78 0.70 GLUC 102* 97 ANION 10 11 CA 9.0 8.5 WBC 8.25 9.68 HB 11.0* 11.1* HCT 34.7* 35.2* PLT 290 294 Physical Exam: GENERAL: resting comfortably, in no acute distress HEENT: normocephalic, atraumatic, EOMI NECK: trachea midline, no JVD LUNGS: Unlabored breathing, equal chest rise bilaterally, on room air CARDIAC: Regular rate, warm extremities, good perfusion throughout ABDOMEN: Soft, non-tender, non-distended. No rebound or guarding. EXTREMITIES: LEO, No deformities, No edema SKIN: Skin color, texture, turgor normal, No rashes or lesions NEURO: AANDOx3, CN II-XII grossly intact PSYCH: normal mood and affect ASSESSMENT AND PLAN: Assessment Active Hospital Problems Diagnosis Date Noted Pre-op examination 09/15/2019 Assessment: 63 year old female with below medical hx who underwent POP today, which was complicated by only partial closure of the mucosotomy, prompting observation instead of discharge. Hospital Course/Operations/Procedures: 05/08/23 Endoscopic per oral pyloromyotomy Plan: Refractory gastroparesis s/p Endoscopic POP, partially closed mucosectomy NPO with meds only, IVF Plan for UGI tomorrow Will discuss with radiology timing - tentatively for tomorrow Pain and nausea control Will plan to d/c home on liquids if UGI negative PPI DVT ppx: SCD/LVX INPATIENT ATTENDING: Dr. Abel Domínguez MD, Elective Discussed with attending: Dr. Domínguez Follow up needs: TBD SIGNATURE: Eliud Sadler DO PATIENT NAME: Chanda Haq DATE: May 09, 2023 TIME: 10:43 AM Pager: see below Elective General Surgery (Green Surgery) Service Pager: For questions or concerns Fri-Fri 6a-5p please page [phone]. After 5pm and on Weekends and Holidays, please page [phone] if in ICU or [phone] if on RNF. [facility] 05-08-2023 Note HNO ID: [id number] Author: Lam Arroyo APRN.MANAGER BUSINESS PLANNING Service: Nursing Author Type: Nurse Melter Clerk Type: Anesthesia Procedure Notes Filed: 05/08/2023 12:38 PM Note Text: ANESTHESIOLOGY PROCEDURE NOTE Airway General Information Procedure Start Time/Medication Administration: 05/08/2023 12:24 PM Patient location during procedure: OR Timeout Performed Pre-procedure: timeout performed Consent Obtained: Yes Patient identity confirmed: arm band Staffing MANAGER BUSINESS PLANNING: Lam Arroyo APRN.MANAGER BUSINESS PLANNING Performed by: ANNIA Indications and Patient Condition Indications for airway management: anesthesia Preoxygenated: yes anesthesia circuit Patient position: sniffing Method: asleep Cricoid Pressure: No Manual In-Line Stabilization: No Difficult Mask: No Final Airway Details Final airway type: endotracheal airway Final Endotracheal Airway: ETT Cuffed: yes Successful intubation technique: video laryngoscopy Devices used: Telebit Endotracheal tube insertion site: oral Blade: Bijan Blade size: #3 ETT size (mm): 7.5 Measured from: lips Measurement (cm): 21 Placement verified by: capnometry Cormack-Lehane Classification: grade I - full view of glottis Number of attempts at approach: 1 SIGNATURE: Lam Arroyo APRN.CRNA PATIENT NAME: Chanda Haq DATE: May 08, 2023 TIME: 12:37 PM CSN: [id number] [facility] 04-30-2023 Miscellaneous Notes [facility]olia [facility] called from [employer], she is the patients case management assistant. The patient is scheduled for POP in Endo with Dr. Domínguez on 05.08.23. The case management assistant is asking for a script for Boost so the patient can follow her post op diet. If we can provide this script and send to Magnolia, she can determine if her insurance will cover it. If it is not covered, [facility] the cost but she needs supporting documents that it is needed and ordered by the surgeon. Could we provide her with a script (even for just the couple of weeks post op) until she is able to advance her diet? Jocelyn Santiago RN April 30, 2023 2:07 PM documented in this encounter [facility] 04-30-2023 Miscellaneous Notes Pt established with Dietitian would need to come from them. According to [facility], script for Boost would not be covered but Nutrition department may be able to help with this. Lizz Riggs PA-C Magnolia from [employer] called asking if we can send a script for patient to have nutritional boost? documented in this encounter [facility] 04-29-2023 Note [facility] 04-22-2023 Miscellaneous Notes Patient left a message late yesterday with questions about her surgery. I returned her call. Patient was crying stating things are getting worse. I can't keep anything down, my food and medicine just lay in my stomach. Patient denies any vomiting but she has not eaten anything since Friday evening, which was crackers, cottage cheese & Boost. She is able to drink without difficulty. Patient states she feels bloated, but reports she had a normal bowel movement this morning. I told the patient if she cannot keep food or liquids down she needs to go to the ER, but patient said she does not feel she needs to go. My nerves are shot. My is a narcissist. I called my counselor and she put me on Buspar, but it's not working so I have another call in to her to see if we can increase the dose. Dr. Domínguez will be mad at me, I had a couple of cigarettes. I've chewed my nails down to the nubs. I told the patient she is doing everything right; reaching out to her counselor and trying to get her medication adjusted. I applauded her for quitting smoking and recommended that she try holding a straw between her fingers, like a cigarette, which may help that urge for a cigarette. I encouraged her not to smoke again before the surgery. Patient calmed down and we reviewed her upcoming appointments prior to surgery. Patient thanked me for the call. Pamela Mendez RN documented in this encounter [facility] 04-16-2023 Miscellaneous Notes Patient was notified Sarah Acosta Ma Let patient know US of neck arteries shows no increase in narrowing compared to 09/2022 documented in this encounter [facility] 04-03-2023 Note HNO ID: [id number] Author: RT Adrian([place]) Service: ? Author Type: Technologist Type: Progress Notes Filed: 04/03/2023 7:58 AM Note Text: Radiology Service Progress Note PATIENT NAME: Chanda Haq DATE OF SERVICE: April 03, 2023 TIME: 7:57 AM PATIENT IDENTITY VERIFICATION COMPLETED USING TWO (2) IDENTIFIERS: Name and Date of confirmed by patient verbally. FALL SCREENING: Has the patient had 2 falls in the last year or 1 fall with injury or currently using an Ambulatory Assistive Device (Walker, Cane, Wheelchair, Crutches, etc.)? No PATIENT GENDER DATA: Female. status: : No status: NO. PATIENT RELEVANT IMPLANT DATA REVIEWED: Yes RADIOLOGY DEPARTMENT: MR; Exam(s) Completed: Head: Routine Brain PERIPHERAL IV DATA: Not applicable SIGNED BY: Valencia Oneill RDMS, SABRA- Eileen ([facility]) April 03, 2023 7:57 AM [facility] 04-02-2023 Note [facility] 03-31-2023 Note [facility] 03-27-2023 Note [facility] 03-27-2023 History of Present illness Narrative VIRTUAL VISIT FOLLOW UP I have communicated my name and active licensure. The patient's identity and physical location were verified at the time of this visit. Either the patient or their legal major account representative has been informed of the risks and benefits of -- and alternatives to -- treatment through a remote evaluation and consents to proceed with the evaluation remotely. I had a virtual visit with Ms. Haq today for follow up of IBS-C, gastroparesis. UPDATED HISTORY: Following with Dr. Domínguez, Dr. Britt, plan for POP for gastroparesis. With Trulance 3 mg daily, will have a BM daily, consistency irregular, still transitioning from constipated/straining to diarrhea. Includes other days she will be unable to have a BM, no bloody/black colored stools. Weight has been stable. Taking protein shakes daily for nutritional support. GES 01/2023 IMPRESSION: REDUCED RATE OF GASTRIC EMPTYING OF A SOLID MEAL. 21-35% GASTRIC RETENTION AT 4 HOURS IS CONSISTENT WITH MODERATE GASTROPARESIS. CT abd 12/2022 IMPRESSION: Wall thickening and fat stranding is seen involving the ascending colon, hepatic flexure, as well as a portion of the transverse colon. Given history of nausea and vomiting, colitis must be considered. No evidence for bowel obstruction, bowel perforation, or abscess formation. Again seen is a diverticulum arising from the gastric cardia. There is also a duodenal diverticulum. Sigmoid colon diverticulosis, without CT evidence for diverticulitis. Stable 5 mm nodule within the right lower lobe, when compared to the prior examination. EGD/Colon 12/10/2022 FINAL DIAGNOSIS A. Antrum, biopsy: - Oxyntic mucosa with PPI effect and reactive change. - No antral mucosa identified. B. Duodenum, biopsy: - Duodenal mucosa with no diagnostic abnormality. C. Rectum, polyp, biopsy: - Polypoid rectal mucosa with surface hyperplastic change. VCTE 10/2022 Impression The reading was adequate, and corresponds to Fibrosis stage F0 and steatosis grade of S3. RUQ US IMPRESSION: Coarse echotexture of the liver. VV 12/2022 Taking Protonix 40 mg daily, carafate, Pepcid daily with minimal relief. Throwing up at bedtime, regurgitating solid foods. States she is throwing up multiple times per day. Having persistent intermittent generalized abd pain/ aching , unchanged with eating, early satiety. Lost 10 lbs unintentionally since last OV. Trulance is helping her to have a BM but includes these are less frequent due to decreased appetite. Denies gas, bloating, dysphagia, fevers. PAST MEDICAL HISTORY Diagnosis Date Acquired hypothyroidism 08/22/2015 ACUTE GASTRITIS W/O HEMORRHAGE 02/05/2006 Anxiety and depression 10/05/2020 Arthritis 05/18/2020 Arthritis of lumbar spine 03/05/2022 Mod Arthritis of right foot 09/02/2018 At high risk for falls 09/02/2018 Backache, unspecified 01/11/2013 Bilateral carotid artery stenosis 09/25/202009/2020 20-40% bilaterally Bipolar I disorder (HCC) 12/20/2005 Seeds Stinger at [facility] Cervical disc disorder with radiculopathy 09/27/2021 Cervical radiculopathy 09/19/2021 Cervical spondylosis 09/19/2021 Seeing pain management Cervical spondylosis without myelopathy 09/27/2021 Cervical stenosis of spinal canal 09/19/2021 Chronic pain of left knee 06/19/2019 Class 1 obesity due to excess calories without serious comorbidity with body mass index (BMI) of 33.0 to 33.9 in adult 03/03/2018 Current use of proton pump inhibitor 03/03/2018 Diaphragmatic hernia without mention of obstruction or gangrene 02/05/2006 Elevated hemoglobin A1c 06/29/2018 Encounter for screening mammogram for breast cancer 03/05/2019 Ex-smoker 08/22/2015 Started at age 14 and has smoked up to 1/2 a PPD, quit 12/2017 External hemorrhoids without mention of complication Gastroesophageal reflux disease with esophagitis 08/22/2015 Hearing loss Hearing aids in both ears. Hiatal hernia 02/19/2023 small History of transient ischemic attack (TIA) 11/05/2019 Incontinence 02/20/[address] Jordan Irritable bowel syndrome with constipation 03/03/2018 Lactose intolerance 03/05/2019 Lung nodules 12/11/2017 CT 12/11/[address] 05/2018 stable needs repeat in 2 yrs Medicare annual wellness visit, subsequent 03/03/2018 Medicare Part B: 06/17/2001 last done: 03/05/2019 Migraine without aura and without status migrainosus, not intractable 05/22/2016 Mixed hyperlipidemia 08/22/2015 JORDAN (obstructive sleep apnea) 09/02/2018 DME DASCO Osteopenia of lumbar spine 11/27/2020 Borderline on DXA 11/2020 Other constipation 07/21/2019 Overactive bladder 05/30/2015 Primary insomnia 07/30/2018 Primary osteoarthritis of left knee 11/05/2019 RLS (restless legs syndrome) 06/04/2019 S/P total knee arthroplasty, left 10/18/2020 Smoker 08/22/2015 Started at age 14 and has smoked up to 1/2 a PPD, quit 12/2017 Thoracic arthritis 03/05/2022 Mild Vitamin D deficiency 01/25/2020 PAST SURGICAL HISTORY Procedure Laterality Date 48 HOUR PH STUDY 02/19/2023 Dr. Domínguez ARTHROSCOPY KNEE DIAGNOSTIC W/WO SYNOVIAL BX SPX Left ARTHRS KNE SURG W/MENISCECTOMY MED/LAT W/SHVG Left 12/01/2019 COLONOSCOPY 02/28/2009 COLONOSCOPY 02/04/2018 COLONOSCOPY 08/11/2019 one polyp, repeat 10 yrs COLONOSCOPY 12/10/2022 Hyperplastic rectal polyp CYSTOURETHROSCOPY 10/05/2015 EGD WITH BIOPSY(S) 02/05/2006 EGD WITH BIOPSY(S) 12/21/2014 EGD WITH BIOPSY(S) 03/29/2015 EGD WITH BIOPSY(S) 03/24/2018 Dr. Garcia reported as normal. Neg for Hpylori and celiac. EGD WITH BIOPSY(S) 12/10/2022 Mild nonspecific inflammation in stomach EGD WITH BIOPSY(S) 02/19/2023 small hiatal hernia; Dr. Domínguez EXC/DSTRJ LINGUAL TONSIL ANY METHOD SPX remote MANOMETRY ESOPHAGEAL 02/19/2023 Dr. Britt PAST SURGICAL HISTORY OF 10/05/2015 TOT monarc sling PAST SURGICAL HISTORY OF Left 05/03/2016 ulnar nerve decompression TOTAL KNEE REPLACEMENT Left 10/18/2020 FAMILY HISTORY Problem Relation Age of Onset Cancer Mother Hysterectomy Alcohol/Drug Father Alcoholic other (Leukemia) Sister shortly after Heart Attack Brother x 2 Diabetes Brother Heart Maternal Grandmother Hearing Loss Maternal Grandmother Headache Maternal Grandmother Diabetes Maternal Grandmother Stroke Maternal Grandmother Heart Maternal Grandfather Diabetes Maternal Grandfather No Known Problems Paternal Grandmother No Known Problems Paternal Grandfather Coronary Artery Disease Son Hyperlipidemia Son Hypertension Son Hyperlipidemia Son No Known Problems Son Colon Cancer No Family History Social History Tobacco Use Smoking status: Former Packs/day: 0.50 Years: 40.00 Pack years: 20.00 Types: Cigarettes Quit date: 01/07/2018 Years since quittin.2 Smokeless tobacco: Never Tobacco comments: used welbutrin Vaping Use Vaping Use: Never used Substance Use Topics Alcohol use: No Drug use: No Current Outpatient Medications Medication Sig Dispense Refill rosuvastatin (CRESTOR) 40 mg tablet Take 1 tablet by mouth daily at bedtime. 90 tablet 1 tiZANidine (ZANAFLEX) 4 mg tablet TAKE 1 PILL UP TO 3 TIMES PER DAY NEEDED FOR PAINFUL MUSCLE SPASMS 90 tablet 5 gabapentin (NEURONTIN) 400 mg capsule Take 1 capsule by mouth three times daily for 180 days. 90 capsule 5 gabapentin (NEURONTIN) 100 mg capsule Take 1 pill 3 times per day. Take with the 400mg pill for 500mg per dose. 90 capsule 5 sucralfate (CARAFATE) 1 gram tablet Take 1 tablet by mouth daily at bedtime. 90 tablet 1 Fenofibrate (LOFIBRA) 54 mg tablet Take 1 tablet by mouth once daily. 30 tablet 5 topiramate (TOPAMAX) 100 mg tablet Take 1 tablet by mouth twice daily. 60 tablet 5 plecanatide (TRULANCE) 3 mg tablet Take 1 tablet (3 mg) by mouth once daily. 30 tablet 2 rimegepant (NURTEC ODT) 75 mg disintegrating tablet Take 1 tablet by mouth once daily as needed. 8 tablet 5 promethazine (PHENERGAN) 25 mg tablet TAKE 1 TABLET BY MOUTH EVERY 8 HOURS NEEDED FOR NAUSEA 30 tablet 0 cyanocobalamin (VITAMIN B-12) 1,000 mcg tab Take 1 tablet by mouth once daily. 90 tablet 1 ezetimibe (ZETIA) 10 mg tablet Take 1 tablet by mouth once daily. 90 tablet 1 benzonatate (TESSALON PERLES) 100 mg capsule Take 1 capsule by mouth three times daily as needed for cough. 21 capsule 0 ARIPiprazole (ABILIFY) 15 mg tablet Take 15 mg by mouth once daily. pantoprazole DR (PROTONIX) 40 mg tablet Take 1 tablet by mouth twice daily. Take on empty stomach, 1/2 hr before meal. 180 tablet 2 rOPINIRole (REQUIP) 1 mg tablet Take one tab by mouth before bed. 90 tablet 1 metFORMIN ER (GLUCOPHAGE XR) 500 mg 24 hr tablet Take 1 tablet by mouth daily with breakfast. 30 tablet 11 ergocalciferol 50,000 unit capsule (VITAMIN D2, DRISDOL) Take one capsule twice a week (Fri and ) 24 capsule 3 amitriptyline (ELAVIL) 25 mg tablet Take 1 tablet by mouth daily at bedtime. 90 tablet 3 levothyroxine (SYNTHROID) 137 mcg tablet Take one daily Fri-Fri and two on Friday. 34 tablet 5 aspirin, enteric coated (ASPIRIN, ENTERIC COATED) 81 mg EC tablet Take 81 mg by mouth once daily. CPAP Mask fitting and 30 day download for autopap 10 -20 cm H2O & formal mask refitting for medical necessity & schedule with the RT, chin strap, head gear, humidity, heated tubing (SACHI), lifetime supplies. G47.33 JORDAN albuterol HFA (PROVENTIL HFA, VENTOLIN HFA) 90 mcg/actuation inhaler Inhale 2 Puffs as instructed every 4 hours as needed for wheezing/shortness of breath. 18 g 1 blood sugar diagnostic (BLOOD GLUCOSE TEST) test strip Test blood sugar(s) 1 times daily. Dx: Other DM Code R73.03 Insulin: No 50 Strip 11 Lancets lancets Test blood sugar(s) 1 times daily. Dx: Other DM Code R73.03 Insulin: No 100 Each 11 lactase (LACTAID) 3,000 unit tablet Take 1 tablet by mouth three times daily with meals. 90 tablet 5 acetaminophen (TYLENOL ARTHRITIS ORAL) Take 650 mg by mouth every 8 hours as needed. [place]-3 Fatty Acids 100 mg chew [place]-3 Fatty Acids [place]-3 Fatty Acids Active 2000 MG DAILY November 21, 2016 10:19am 11-21-2016 [facility] (80542) COMPOUNDED PRESCRIPTION Wheeled rolator walker with ahnd breaks and seat, # 1, Dx:M19.071, Z91.071 1 Device 1 DULoxetine (CYMBALTA) 30 mg capsule Take 1 capsule by mouth once daily. Per [facility] No current facility-administered medications for this visit. ALLERGIES Allergen Reactions Ditropan [Oxybutyni* Other: See Comments Nausea,vomiting Benztropine Other: See Comments, Unknown Oxybutynin Other: See Comments Oxycodone GI Upset, Unknown Cogentin [Benztropi* Other: See Comments Blurred vision Depakote [Divalproe* GI Upset Flagyl [Metronidazo* GI Upset Nausea and vomiting Ibuprofen GI Upset Nexium [Esomeprazol* Unknown Percocet [Oxycodone* Other: See Comments Nausea, RDZ, eye swelling Tylenol [Acetaminop* GI Upset diarrhea with high doses REVIEW OF SYSTEMS: PAIN ASSESSMENT: Negative for pain, history of chronic pain, or current treatment for a chronic pain condition. GENERAL: No weight loss, malaise or fevers RESPIRATORY: Negative for cough, hemoptysis, wheezing, COPD, dyspnea or shortness of breath CARDIOVASCULAR: Negative for chest pain, leg swelling, hypertension, CHF or palpitations GI: See HPI : No history of dysuria, frequency or incontinence VERTICAL ROLL OPERATOR: Negative for abnormal vaginal bleeding, abnormal vaginal discharge PHYSICAL FINDINGS OF NOTE: General - Normal, healthy, cooperative, in no acute distress Able to interact verbally by video conference Psych - ORIENTATION: normal to time place, person and situation Mood/Affect: AFFECT AND MOOD: Normal Head/Neuro - Normal size and shape Facial appearance normal Pulmonary - respiratory effort normal Cardiovascular - patient describes extremities normal, warm, no cyanosis,no clubbing, and no edema Abdominal - Not performed Skin - abnormal lesions not visualized Motor - patient seen sitting with Normal appearing strength and coordination Anorectal exam - Not Performed Assessment/Plan (K58.1) Irritable bowel syndrome with constipation (primary encounter diagnosis) (K31.4) Gastric diverticulum (K31.84) Gastroparesis 1. Irritable bowel syndrome with constipation - prucalopride (MOTEGRITY) 1 mg tab tablet; Take 1 tablet (1 mg) by mouth once daily. Dispense: 30 tablet; Refill: 2 - PANC ELASTASE, FECAL - Normal small intestine biopsies, colon 11/2022 - Check elastase - Stop Trulance, start Motegrity daily. Pt to contact office if any issues with insurance coverage/cost for med 2. Gastric diverticulum - Per Bariatrics and Gen surg (Dr. Britt, Dr. Domínguez, Dr. Apple), diverticulum not of concern, suspects sx are related to underlying gastroparesis 3. Gastroparesis - prucalopride (MOTEGRITY) 1 mg tab tablet; Take 1 tablet (1 mg) by mouth once daily. Dispense: 30 tablet; Refill: 2 - Following with Bariatrics, under consideration for POP - Continue daily protein shakes for nutritional support - May continue Protonix 40 mg BID, Pepcid for now, advised to d/c carafate due to lack of improvement. Informed carafate is likely contributing to worsened constipation as well I spent a total of 18 minutes on the date of the service which included preparing to see the patient, [id number] patient care, completing clinical documentation, obtaining and/or reviewing separately obtained history, performing a medically appropriate examination, counseling and educating the patient/family/caregiver, ordering medications, tests, or procedures, communicating with other HCPs (not separately reported), independently interpreting results (not separately reported), communicating results to the patient/family/caregiver, and care coordination (not separately reported). Lizz Riggs PA-C March 27, 2023 7:42 AM documented in this encounter [facility] [facility] Miscellaneous Notes Pt requesting refill Last refill 05/17/22 Qty: 90 with 1 refill LAKESHA 12/06/22 NOV 03/31/23 Jennifer Nesbitt LPN documented in this encounter [facility] 03-24-2023 Note HNO ID: [id number] Author: Nela Epps Service: ? Author Type: ? Type: Progress Notes Filed: 03/24/2023 9:40 AM Note Text: claudio oral pyloromyotomy (POP) procedure for medically refractory gastroparesis [facility] 03-24-2023 History of Present illness Narrative claudio oral pyloromyotomy (POP) procedure for medically refractory gastroparesis documented in this encounter [facility] 03-21-2023 Note HNO ID: [id number] Author: Nela Epps Service: ? Author Type: ? Type: Progress Notes Filed: 03/21/2023 9:39 AM Note Text: perioral pyloromyotomy Endoscopic pyloromyotomy (POP) procedure - Dr. Britt will need to mckeon - 1 hr, can be done in endoscopy or OR under gen anesthesia [facility] 03-21-2023 History of Present illness Narrative perioral pyloromyotomy Endoscopic pyloromyotomy (POP) procedure - Dr. Britt will need to mckeon - 1 hr, can be done in endoscopy or OR under gen anesthesia documented in this encounter [facility] 03-19-2023 Miscellaneous Notes I have attempted to contact this patient by phone, Left brief message on cell voicemail stating that there was a template change today and she is now scheduled in a new patient spot so I need to get her moved into a different time spot. I have asked her to give me a call back at [phone]. Asiya Aranda documented in this encounter [facility] 03-13-2023 Note HNO ID: [id number] Author: Peyton Moeller MA Service: ? Author Type: Manufacture Specialist Type: Progress Notes Filed: 03/13/2023 3:04 PM Note Text: Review of Systems Constitutional: Negative for activity change, chills, fever and unexpected weight change. Gastrointestinal: Negative for bowel retention or incontinence Genitourinary: Negative for difficulty urinating. Negative for bladder retention or incontinence Musculoskeletal: Positive for arthralgias, back pain, gait problem, myalgias, neck pain and neck stiffness. Negative for joint swelling. Neurological: Positive for headaches. Negative for weakness and numbness. Psychiatric/Behavioral: Positive for dysphoric mood and sleep disturbance. Negative for suicidal ideas. The patient is not nervous/anxious. [facility] 03-13-2023 History of Present illness Narrative Review of Systems Constitutional: Negative for activity change, chills, fever and unexpected weight change. Gastrointestinal: Negative for bowel retention or incontinence Genitourinary: Negative for difficulty urinating. Negative for bladder retention or incontinence Musculoskeletal: Positive for arthralgias, back pain, gait problem, myalgias, neck pain and neck stiffness. Negative for joint swelling. Neurological: Positive for headaches. Negative for weakness and numbness. Psychiatric/Behavioral: Positive for dysphoric mood and sleep disturbance. Negative for suicidal ideas. The patient is not nervous/anxious. Images from the original note were not included. [facility] [place] [facility] Name: Chanda Haq : 1960 Purpose: 2 month follow-up Today's Date: 03/13/2023 Last Visit: 12/19/2022 (JOAN, MAIRA.MARY ELLEN Atkins) Chief complaint: Neck Pain Chanda Haq is an established patient, returning today for continued evaluation and management of the chief complaint noted above. Interval History: Overall pain and functional disability: unchanged New Complaints: none Again, reports that she is afraid to move her neck due to the popping and grinding noises in her neck. Reports she did not like the PT, feels it made her pain worse. She had one Chiropractic visit, has been on hold due to GI distress. She reports that she may need endoscopic surgery for her GI problems. There is discussion of Vagal nerve surgery. She has a home health aide that is helping her heat and ice and some massage therapy does help. Pain Description: Timing: constant Character: Aching Primary Location: Neck Pain Radiation: Into her shoulders Exacerbating factors: activity Relieving factors: ice , heat, and massage Interferes with: ADL's The patient reports she is sleeping better The patient denies difficulty with bowel or bladder control Medications Prescribed: Started or modified: none Discontinued: none Maintained at current dosages: Cymbalta 30 mg (PCP) Topamax 100 mg (PCP) OTC Tylenol arthritis Gabapentin 400 mg TID Tizanidine 4 mg prn TID Tolerating Medication: yes Medications helping improve ADL's and Self-care: no Procedures Performed: DATE PROCEDURE IMPROVEMENT none Therapies Attended: none Studies Obtained: X-ray Knee Bilat. (relevant findings reported below) Notable Events During Course of Treatment: 07/2022 - Right Shoulder injection (no relief) 07/2022 - Electrodiagnostic Study reportedly normal 06/2022 - Saw Dr. Hugo in NSGY, advised conservative management 05/2022 - Clinton discontinued 05/2022 - MBB with steroids, no sustained relief 03/2022 - She had bilat C-spine RFA, worsening pain left side afterwards. Was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 COLONOSCOPY 08/11/2019 one polyp, repeat 10 yrs COLONOSCOPY 12/10/2022 Hyperplastic rectal polyp CYSTOURETHROSCOPY 10/05/2015 EGD WITH BIOPSY(S) 02/05/2006 EGD WITH BIOPSY(S) 12/21/2014 EGD WITH BIOPSY(S) 03/29/2015 EGD WITH BIOPSY(S) 03/24/2018 Dr. Garcia reported as normal. Neg for Hpylori and celiac. EGD WITH BIOPSY(S) 12/10/2022 Mild nonspecific inflammation in stomach EGD WITH BIOPSY(S) 02/19/2023 small hiatal hernia; Dr. Domínguez EXC/DSTRJ LINGUAL TONSIL ANY METHOD SPX remote MANOMETRY ESOPHAGEAL 02/19/2023 Dr. Britt PAST SURGICAL HISTORY OF 10/05/2015 TOT monarc sling PAST SURGICAL HISTORY OF Left 05/03/2016 ulnar nerve decompression TOTAL KNEE REPLACEMENT Left 10/18/2020 Current Medications: Current Outpatient Medications Medication Sig sucralfate (CARAFATE) 1 gram tablet Take 1 tablet by mouth daily at bedtime. Fenofibrate (LOFIBRA) 54 mg tablet Take 1 tablet by mouth once daily. topiramate (TOPAMAX) 100 mg tablet Take 1 tablet by mouth twice daily. plecanatide (TRULANCE) 3 mg tablet Take 1 tablet (3 mg) by mouth once daily. rimegepant (NURTEC ODT) 75 mg disintegrating tablet Take 1 tablet by mouth once daily as needed. cyanocobalamin (VITAMIN B-12) 1,000 mcg tab Take 1 tablet by mouth once daily. ezetimibe (ZETIA) 10 mg tablet Take 1 tablet by mouth once daily. ARIPiprazole (ABILIFY) 15 mg tablet Take 15 mg by mouth once daily. pantoprazole DR (PROTONIX) 40 mg tablet Take 1 tablet by mouth twice daily. Take on empty stomach, 1/2 hr before meal. tiZANidine (ZANAFLEX) 4 mg tablet TAKE 1 PILL UP TO 3 TIMES PER DAY NEEDED FOR PAINFUL MUSCLE SPASMS gabapentin (NEURONTIN) 400 mg capsule Take 1 capsule by mouth three times daily for 180 days. rOPINIRole (REQUIP) 1 mg tablet Take one tab by mouth before bed. rosuvastatin (CRESTOR) 40 mg tablet Take 1 tablet by mouth daily at bedtime. metFORMIN ER (GLUCOPHAGE XR) 500 mg 24 hr tablet Take 1 tablet by mouth daily with breakfast. ergocalciferol 50,000 unit capsule (VITAMIN D2, DRISDOL) Take one capsule twice a week (Fri and ) amitriptyline (ELAVIL) 25 mg tablet Take 1 tablet by mouth daily at bedtime. levothyroxine (SYNTHROID) 137 mcg tablet Take one daily and two on Friday. aspirin, enteric coated (ASPIRIN, ENTERIC COATED) 81 mg EC tablet Take 81 mg by mouth once daily. CPAP Mask fitting and 30 day download for autopap 10 -20 cm H2O & formal mask refitting for medical necessity & schedule with the RT, chin strap, head gear, humidity, heated tubing (SACHI), lifetime supplies. G47.33 JORDAN albuterol HFA (PROVENTIL HFA, VENTOLIN HFA) 90 mcg/actuation inhaler Inhale 2 Puffs as instructed every 4 hours as needed for wheezing/shortness of breath. blood sugar diagnostic (BLOOD GLUCOSE TEST) test strip Test blood sugar(s) 1 times daily. Dx: Other DM Code R73.03 Insulin: No Lancets lancets Test blood sugar(s) 1 times daily. Dx: Other DM Code R73.03 Insulin: No lactase (LACTAID) 3,000 unit tablet Take 1 tablet by mouth three times daily with meals. acetaminophen (TYLENOL ARTHRITIS ORAL) Take 650 mg by mouth every 8 hours as needed. [place]-3 Fatty Acids 100 mg chew [place]-3 Fatty Acids [place]-3 Fatty Acids Active 2000 MG DAILY November 21, 2016 10:19am 11-21-2016 [facility] ([id number]) COMPOUNDED PRESCRIPTION Wheeled rolator walker with ahnd breaks and seat, # 1, Dx:M19.071, Z91.071 DULoxetine (CYMBALTA) 30 mg capsule Take 1 capsule by mouth once daily. [facility] promethazine (PHENERGAN) 25 mg tablet TAKE 1 TABLET BY MOUTH EVERY 8 HOURS NEEDED FOR NAUSEA (Patient not taking: Reported on 03/06/2023) semaglutide (OZEMPIC) 1 mg/dose (4 mg/3 mL) pen Inject 1 mg subcutaneously one time a week. (Patient not taking: Reported on 03/06/2023) benzonatate (TESSALON PERLES) 100 mg capsule Take 1 capsule by mouth three times daily as needed for cough. (Patient not taking: No sig reported) polyethylene glycol 3350 (MIRALAX) 17 gram/dose powder Take 17 g by mouth once daily. Dissolve dose in 4 - 8 ounces of liquid and take as directed. (Patient not taking: Reported on 03/06/2023) ondansetron orally disintegrating (ZOFRAN ODT) 4 mg disintegrating tablet Take 1 tablet by mouth every 8 hours as needed for nausea/vomiting. (Patient not taking: Reported on 03/06/2023) famotidine (PEPCID) 40 mg tablet Take 1 tablet by mouth daily before dinner. (Patient not taking: No sig reported) Lactobacillus acidophilus (FLORAJEN) 460 mg (20 billion cell) cap Take 1 capsule by mouth once daily. (Patient not taking: Reported on 03/06/2023) No current facility-administered medications for this visit. Allergies: Ditropan [Oxybutynin Chloride], Benztropine, Oxybutynin, Oxycodone, Cogentin [Benztropine Mesylate], Depakote [Divalproex Sodium], Flagyl [Metronidazole Hcl], Ibuprofen, Nexium [Esomeprazole Magnesium], Percocet [Oxycodone-Acetaminophen], and Tylenol [Acetaminophen] Family Medical History: FAMILY HISTORY Problem Relation Age of Onset Cancer Mother Hysterectomy Alcohol/Drug Father Alcoholic other (Leukemia) Sister shortly after Heart Attack Brother x 2 Diabetes Brother Heart Maternal Grandmother Hearing Loss Maternal Grandmother Headache Maternal Grandmother Diabetes Maternal Grandmother Stroke Maternal Grandmother Heart Maternal Grandfather Diabetes Maternal Grandfather No Known Problems Paternal Grandmother No Known Problems Paternal Grandfather Coronary Artery Disease Son Hyperlipidemia Son Hypertension Son Hyperlipidemia Son No Known Problems Son Colon Cancer No Family History Social History: Social History Tobacco Use Smoking status: Former Packs/day: 0.50 Years: 40.00 Pack years: 20.00 Types: Cigarettes Quit date: 01/07/2018 Years since quittin.1 Smokeless tobacco: Never Tobacco comments: used welbutrin Vaping Use Vaping Use: Never used Substance Use Topics Alcohol use: No Drug use: No Physical Examination: BP 118/66 Pulse 76 Ht 160 cm (5' 3 ) Wt 88.1 kg (194 lb 3.2 oz) BMI 34.40 kg/m Body mass index is 34.4 kg/m . Physical Exam Constitutional: Appearance: Normal appearance. HENT: Head: Normocephalic and atraumatic. Nose: Nose normal. Mouth/Throat: Mouth: Mucous membranes are moist. Eyes: Extraocular Movements: Extraocular movements intact. Pupils: Pupils are equal, round, and reactive to light. Cardiovascular: Rate and Rhythm: Normal rate. Pulses: Normal pulses. Pulmonary: Effort: Pulmonary effort is normal. Abdominal: Palpations: Abdomen is soft. Musculoskeletal: General: Normal range of motion. Cervical back: Normal range of motion and neck supple. Skin: General: Skin is warm and dry. Neurological: General: No focal deficit present. Mental Status: She is alert and oriented to person, place, and time. Psychiatric: Mood and Affect: Mood normal. Behavior: Behavior normal. Radiologic/Endoscopic/Laboratory Studies to Date EGD 02/19/23- shows 4 cm gastric diverticulum, hill grade hiatal hernia 2, some retained food CT abdomen/pelvis 12/27/22 Gastric diverticulum and colitis Manometry: IRP 11 mmHg, 90% of swallows intact, neg for achalasia 02/19/23 Ozuna 02/19/23 shows elevated [place]eester 17 consistent with acid reflux GES 01/30/23 shows 21-35% retained food at 4 hours consistent with moderate gastroparesis Assessment: Patient is a 62 year old female with refractory gastroparesis and large gastric diverticulum. ASSESSMENT/PLAN: 1. Gastroparesis - ICD9: 536.3, ICD10: K31.84 (primary diagnosis) Plan for claudio oral pyloromyotomy (POP) procedure for medically refractory gastroparesis. I explained the risks of surgery including bleed, infection and perforation to the stomach and duodenum. Patient expressed understanding and wanted to pursue surgery. 2. Gastroesophageal reflux disease with esophagitis without hemorrhage - ICD9: 530.81, 530.10, ICD10: K21.00 Continue PPI Will likely improve once gastroparesis has improved Abel Domínguez MD MS [facility]vasive [facility] Bariatric Surgery Medical Decision Making: Problems: Moderate: 2+ stable chronic illnesses Data: Unique source(s) for external note(s) reviewed: 1 Unique test result(s) reviewed: 3+ Unique test(s) ordered: 1 Independent interpretation of test from other physician/QHCP Risk: High: Decision on elective major surgery w/ risk factors Medical Decision Making Level: 5 - High documented in this encounter [facility] 03-03-2023 Note [facility] 03-03-2023 Note [facility] 03-03-2023 History of Present illness Narrative Nathan Grewal MD Department of Orthopaedics Orthopaedics [address] [facility] [address] Dept: [phone] Dept March 03, 2023 CHIEF COMPLAINT: Follow Up and Knee Pain of the Left Knee and Last seen 10/25/21 S/P Left TKA (10/18/20) HPI Patient here for evaluation of left knee. Patient states she fall landing backwards and tumbled. She fell again in December going up the steps to get into her house and rolled off the steps and down the bank. She is having lateral knee pain. Her pain is worse at night especially when she goes to bed. Has been icing it at night to help her relax and taking Tylenol arthritis. Patient is using quad cane to ambulate. She has a walker to use at home when needed. She feels she may have some balance issues. Patient states she is scheduled on for her stomach. X-rays done today. ASSESSMENT: M25.562 Acute pain of left knee (primary encounter diagnosis) Z96.652 S/P total knee arthroplasty, left PLAN: She's been feeling a little better and wanted to make sure everything was OK. Stable images. Good exam. Ms. Chanda Haq was advised as to contrast therapies and/or to take analgesics/anti-inflammatories as needed and all contraindications were reviewed. OBJECTIVE: Ms. Chanda Haq is a pleasant 62 year old in no apparent distress. Gen:There were no vitals taken for this visit. nl development, non obese, no deformities ENT: Normocephalic, normal hearing, moist mucosa CV: Pulses:Radial= 2+ and symmetric, capillary refill < 2 secs, no peripheral edema/varicosities Skin: no rash, bruising or lesions. Good turgor. Psych: cooperative and appropriate, alert and oriented x 3, good mood and affect. Musculoskeletal: Mild swelling. Good motion. Ligaments stable. Imaging: IMPRESSION: Status post total left knee arthroplasty without radiographic evidence of hardware complications. Mild right knee medial compartmental joint space narrowing. Electric Organ Inspector And Repairer: PSCB Transcribe Date/Time: Mar 05 2023 1:44P Dictated by : KYLE ZEPEDA MD This examination was interpreted and the report reviewed and electronically signed by: KYLE ZEPEDA MD on Mar 05 2023 1:46PM EST Results-Findings * * *Final Report* * * DATE OF EXAM: Mar 03 2023 3:25PM WRX [id number] - XR KNEE 4V AP/PA BOTH+LAT/SHEA LT / PROCEDURE REASON: Pain * * * * Physician Interpretation * * * * TITLE: XR KNEE 4V AP/PA BOTH+LAT/SHEA LT CLINICAL INDICATION: Pain TECHNIQUE: AP/PA/merchant radiographs of both knees and lateral radiograph of the left knee COMPARISON: Radiograph dated October 25, 2021 FINDINGS: Left knee: Trace fluid in the left suprapatellar joint space. Postsurgical changes from total left knee arthroplasty without radiographic evidence of hardware complications. No acute fracture or dislocation. Right knee: No acute fracture or dislocation. Mild medial compartmental joint space narrowing. Supporting Subjective Information Below: Past Surgical History: PAST SURGICAL HISTORY Procedure Laterality Date 48 HOUR PH STUDY 02/19/2023 Dr. Domínguez ARTHROSCOPY KNEE DIAGNOSTIC W/WO SYNOVIAL BX SPX Left 1989' ARTHRS KNE SURG W/MENISCECTOMY MED/LAT W/SHVG Left 12/01/2019 COLONOSCOPY 02/28/2009 COLONOSCOPY 02/04/2018 COLONOSCOPY 08/11/2019 one polyp, repeat 10 yrs COLONOSCOPY 12/10/2022 Hyperplastic rectal polyp CYSTOURETHROSCOPY 10/05/2015 EGD WITH BIOPSY(S) 02/05/2006 EGD WITH BIOPSY(S) 12/21/2014 EGD WITH BIOPSY(S) 03/29/2015 EGD WITH BIOPSY(S) 03/24/2018 Dr. Garcia reported as normal. Neg for Hpylori and celiac. EGD WITH BIOPSY(S) 12/10/2022 Mild nonspecific inflammation in stomach EGD WITH BIOPSY(S) 02/19/2023 small hiatal hernia; Dr. Domínguez EXC/DSTRJ LINGUAL TONSIL ANY METHOD SPX remote MANOMETRY ESOPHAGEAL 02/19/2023 Dr. Britt PAST SURGICAL HISTORY OF 10/05/2015 TOT monarc sling PAST SURGICAL HISTORY OF Left 05/03/2016 ulnar nerve decompression TOTAL KNEE REPLACEMENT Left 10/18/2020 Medications: Current Outpatient Medications Medication Sig sucralfate (CARAFATE) 1 gram tablet Take 1 tablet by mouth daily at bedtime. Fenofibrate (LOFIBRA) 54 mg tablet Take 1 tablet by mouth once daily. topiramate (TOPAMAX) 100 mg tablet Take 1 tablet by mouth twice daily. plecanatide (TRULANCE) 3 mg tablet Take 1 tablet (3 mg) by mouth once daily. rimegepant (NURTEC ODT) 75 mg disintegrating tablet Take 1 tablet by mouth once daily as needed. cyanocobalamin (VITAMIN B-12) 1,000 mcg tab Take 1 tablet by mouth once daily. ezetimibe (ZETIA) 10 mg tablet Take 1 tablet by mouth once daily. ARIPiprazole (ABILIFY) 15 mg tablet Take 15 mg by mouth once daily. pantoprazole DR (PROTONIX) 40 mg tablet Take 1 tablet by mouth twice daily. Take on empty stomach, 1/2 hr before meal. tiZANidine (ZANAFLEX) 4 mg tablet TAKE 1 PILL UP TO 3 TIMES PER DAY NEEDED FOR PAINFUL MUSCLE SPASMS gabapentin (NEURONTIN) 400 mg capsule Take 1 capsule by mouth three times daily for 180 days. rOPINIRole (REQUIP) 1 mg tablet Take one tab by mouth before bed. rosuvastatin (CRESTOR) 40 mg tablet Take 1 tablet by mouth daily at bedtime. metFORMIN ER (GLUCOPHAGE XR) 500 mg 24 hr tablet Take 1 tablet by mouth daily with breakfast. ergocalciferol 50,000 unit capsule (VITAMIN D2, DRISDOL) Take one capsule twice a week (Fri and ) amitriptyline (ELAVIL) 25 mg tablet Take 1 tablet by mouth daily at bedtime. levothyroxine (SYNTHROID) 137 mcg tablet Take one daily Fri-Fri and two on Friday. aspirin, enteric coated (ASPIRIN, ENTERIC COATED) 81 mg EC tablet Take 81 mg by mouth once daily. CPAP Mask fitting and 30 day download for autopap 10 -20 cm H2O & formal mask refitting for medical necessity & schedule with the RT, chin strap, head gear, humidity, heated tubing (SACHI), lifetime supplies. G47.33 JORDAN albuterol HFA (PROVENTIL HFA, VENTOLIN HFA) 90 mcg/actuation inhaler Inhale 2 Puffs as instructed every 4 hours as needed for wheezing/shortness of breath. blood sugar diagnostic (BLOOD GLUCOSE TEST) test strip Test blood sugar(s) 1 times daily. Dx: Other DM Code R73.03 Insulin: No Lancets lancets Test blood sugar(s) 1 times daily. Dx: Other DM Code R73.03 Insulin: No lactase (LACTAID) 3,000 unit tablet Take 1 tablet by mouth three times daily with meals. acetaminophen (TYLENOL ARTHRITIS ORAL) Take 650 mg by mouth every 8 hours as needed. [place]-3 Fatty Acids 100 mg chew [place]-3 Fatty Acids [place]-3 Fatty Acids Active 2000 MG DAILY November 21, 2016 10:19am 11-21-2016 [facility] ([id number]) COMPOUNDED PRESCRIPTION Wheeled rolator walker with ahnd breaks and seat, # 1, Dx:M19.071, Z91.071 DULoxetine (CYMBALTA) 30 mg capsule Take 1 capsule by mouth once daily. [facility] promethazine (PHENERGAN) 25 mg tablet TAKE 1 TABLET BY MOUTH EVERY 8 HOURS NEEDED FOR NAUSEA semaglutide (OZEMPIC) 1 mg/dose (4 mg/3 mL) pen Inject 1 mg subcutaneously one time a week. benzonatate (TESSALON PERLES) 100 mg capsule Take 1 capsule by mouth three times daily as needed for cough. (Patient not taking: Reported on 01/27/2023) polyethylene glycol 3350 (MIRALAX) 17 gram/dose powder Take 17 g by mouth once daily. Dissolve dose in 4 - 8 ounces of liquid and take as directed. ondansetron orally disintegrating (ZOFRAN ODT) 4 mg disintegrating tablet Take 1 tablet by mouth every 8 hours as needed for nausea/vomiting. famotidine (PEPCID) 40 mg tablet Take 1 tablet by mouth daily before dinner. (Patient not taking: Reported on 03/03/2023) Lactobacillus acidophilus (FLORAJEN) 460 mg (20 billion cell) cap Take 1 capsule by mouth once daily. No current facility-administered medications for this visit. Allergies: Ditropan [Oxybutynin Chloride], Benztropine, Oxybutynin, Oxycodone, Cogentin [Benztropine Mesylate], Depakote [Divalproex Sodium], Flagyl [Metronidazole Hcl], Ibuprofen, Nexium [Esomeprazole Magnesium], Percocet [Oxycodone-Acetaminophen], and Tylenol [Acetaminophen] ROS: General (negative for fatigue, malaise, weight loss/gain) HEENT (negative for headache, earache, recent vision changes, sinus pain, sore throat) Respiratory (no recent shortness of breath, hemoptysis) CV (negative for chest tightness, palpitations) Musculoskeletal (see HPI) Psych (no depression, anxiety) Nathan Grewal MD documented in this encounter [facility] 02-19-2023 Surgical operation note OPERATIVE/PROCEDURE REPORT LOG ID: [id number] Surgery/Procedure Date: Incision/Procedure Start Time: 1:22 PM Incision Close/Procedure End Time: 1:32 PM Surgeon(s)/Proceduralist(s) and Nursing Education Consultant(s): * No surgeons found in log * No Additional Staff PREOPERATIVE DIAGNOSIS: 1. Dysphagia 2. Gastroesophageal reflux disease. 3. Gastric diverticulum POSTOPERATIVE DIAGNOSIS: 1. Dysphagia 2. Gastroesophageal reflux disease. 3. Gastric diverticulum 4. Small Hiatal hernia COMPLICATIONS: None. Procedure(s): 1. Esophageal manometry study 2. Esophagogastroduodenoscopy (EGD) with cold forceps biopsies of antrum and GEJ 3. Successful Ozuna pH probe insertion Anesthesia: * No anesthesia type entered * MAC by Anesthesiology without complications Operative Findings: Diagnostic EGD demonstrated 4 cm gastric diverticulum with small amount of retained food in it, Hill grade 2 hiatal hernia Operative Indication: Chanda Haq is a 62 year old female who presents for manometry study, EGD, and Ozuna pH probe placement. We discussed the risks, benefits, alternatives, and potential complications, and the patient agreed to proceed. Procedure Details: Endoscopic procedure: The patient was brought to the endoscopic suite in stable condition. The preprocedural checklist was completed to the satisfaction of the entire team and verified with the patient. We had previously completed the consent process after discussing the risks and benefits of the procedure, which included, but were not limited to, the risk of hemorrhage, need for blood transfusion, and the possibility of perforation. The patient had also previously had her esophageal manometry study earlier today. Once she was induced by Anesthesia and appropriately sedated, the Olympus gastroscope was entered through the mouth. I was easily able to intubate the esophagus. The esophageal portion of the examination was positive for a slightly tortuous esophagus but, otherwise, was within normal limits. I did biopsy the GEJ with cold forceps x 2. The Z-line was measured at 40 centimeters from the bite protector. I then entered the stomach. The patient had some gastric secretions, which were suctioned out using the gastroscope. I did retroflex the scope, which showed a normal appearing GE junction and fundus from that angle. Retroflex view showed a Hill grade 2. I then intubated the pylorus into the duodenal bulb, examining both the anterior and posterior portions of the duodenal bulb and then into the second portion of the duodenum. That part of the procedure was within normal limits. Once back in the stomach, I then performed 2 separate cold forceps biopsies in the antrum to be sent for H pylori. This was done with minimal bleeding. I ensured we had good hemostasis. Gastric insufflation was removed using suction. The gastroscope was removed through the mouth. I then had my bilingual sales assistant pedro a Ozuna pH capsule insertion catheter 6 centimeters above GEJ, which placed us at 34 centimeters from the bite protector. Lubricant was placed on the probe device, avoiding placing lubrication on the actual implantable Ozuna pH probe. The probe was inserted with the probe side facing the tongue. There was no resistance. To verify placement into the esophagus, the endoscope was again introduced into the esophagus and esophageal placement was verified. The endoscope was then removed. Once we had the desired marking, suction was then turned on. Once we had our appropriate pressure, we then waited full 30 seconds with the patient being still. I then engaged the insertion catheter. The probe catheter insertion device was then removed with no resistance. I then went back and endoscopically confirmed esophageal placement. This was confirmed with a picture. Insufflation was then removed and the gastroscope removed through the mouth. The patient tolerated the procedure very well and was returned to recovery room in stable condition. Recommendations: Estimated Blood Loss: minimal Specimens: GEJ and antrum Implantable Devices: Ozuna pH probe Drains: None Complications: None I performed the procedure independently. SIGNATURE: Abel Domínguez MD PATIENT NAME: Chanda Haq DATE: February 19, 2023 TIME: 1:34 PM PAGER/CONTACT #: documented in this encounter [facility] 02-19-2023 History and physical note HISTORY AND PHYSICAL EXAMINATION SERVICE DATE: 02/19/2023 SERVICE TIME: 1224 PRIMARY CARE PHYSICIAN: Kyle Sylvester MD Chanda Haq [phone] REASON FOR VISIT: Chanda Haq is a 62 year old female who is scheduled for....... EGD at the request of Dr. Abel Domínguez for routine H&P. The patient has the following: ACTIVE PROBLEM LIST Bipolar I Disorder (Hcc) Diaphragmatic hernia without mention of obstruction or gangrene Backache, Unspecified Incontinence Overactive Bladder Mixed Hyperlipidemia Ex-Smoker Gastroesophageal Reflux Disease With Esophagitis Acquired Hypothyroidism Migraine Without Aura and Without Status Migrainosus, Not Intractable Lung Nodules Encounter for Gynecological Examination Medicare Annual Wellness Visit, Subsequent Class 1 Obesity Due to Excess Calories Without Serious Comorbidity With Body Mass Index (Bmi) of 33.0 to 33.9 in Adult Irritable Bowel Syndrome With Constipation Prediabetes Primary Insomnia Jordan (Obstructive Sleep Apnea) At High Risk for Falls Arthritis of Right Foot Hearing Loss Lactose Intolerance Encounter for Screening Mammogram for Breast Cancer Rls (Restless Legs Syndrome) Chronic Pain of Left Knee Other Constipation Preop Testing History of Transient Ischemic Attack (Tia) Primary Osteoarthritis of Left Knee Vitamin D Deficiency Arthritis Bilateral Carotid Artery Stenosis Hypotension Anxiety and Depression S/P Total Knee Arthroplasty, Left Osteopenia of Lumbar Spine Cervical Spondylosis Cervical Stenosis of Spinal Canal Cervical Radiculopathy Cervical Spondylosis Without Myelopathy Cervical Disc Disorder With Radiculopathy Thoracic Arthritis Arthritis of Lumbar Spine Lumbar Pain Acute Right-Sided Thoracic Back Pain Nausea Scoliosis Neck Pain Neck Muscle Weakness Dropped Head Syndrome Radiculopathy, Cervical Region Gastroparesis Subjective CHIEF COMPLAINT: The reason for this visit is to perform a comprehensive review of the patient's past medical history, assess their current health status and obtain any additional testing required based on anesthesia guidelines. We will also identify any potential anesthesia problems or contraindications to the planned procedure. HPI: Chanda is a 62 year old female presenting for above procedure. History of GERD and gastroparesis. Exacerbating factors: caffeine/coffee/carbonated beverages and acidic food. Alleviating factors: drinking, sleeping reclined and taking antacids. Has had previous EGD. Taking Tums as needed. PAST MEDICAL HISTORY Diagnosis Date Acquired hypothyroidism 08/22/2015 ACUTE GASTRITIS W/O HEMORRHAGE 02/05/2006 Anxiety and depression 10/05/2020 Arthritis 05/18/2020 Arthritis of lumbar spine 03/05/2022 Mod Arthritis of right foot 09/02/2018 At high risk for falls 09/02/2018 Backache, unspecified 01/11/2013 Bilateral carotid artery stenosis 09/25/202009/2020 20-40% bilaterally Bipolar I disorder (HCC) 12/20/2005 [facility] Cervical disc disorder with radiculopathy 09/27/2021 Cervical radiculopathy 09/19/2021 Cervical spondylosis 09/19/2021 Seeing pain management Cervical spondylosis without myelopathy 09/27/2021 Cervical stenosis of spinal canal 09/19/2021 Chronic pain of left knee 06/19/2019 Class 1 obesity due to excess calories without serious comorbidity with body mass index (BMI) of 33.0 to 33.9 in adult 03/03/2018 Current use of proton pump inhibitor 03/03/2018 Diaphragmatic hernia without mention of obstruction or gangrene 02/05/2006 Elevated hemoglobin A1c 06/29/2018 Encounter for screening mammogram for breast cancer 03/05/2019 Ex-smoker 08/22/2015 Started at age 14 and has smoked up to 1/2 a PPD, quit 12/2017 External hemorrhoids without mention of complication Gastroesophageal reflux disease with esophagitis 08/22/2015 Hearing loss Hearing aids in both ears. History of transient ischemic attack (TIA) 11/05/2019 Incontinence 02/20/[address] Jordan Irritable bowel syndrome with constipation 03/03/2018 Lactose intolerance 03/05/2019 Lung nodules 12/11/2017 CT 12/11/[address] 05/2018 stable needs repeat in 2 yrs Medicare annual wellness visit, subsequent 03/03/2018 Medicare Part B: 06/17/2001 last done: 03/05/2019 Migraine without aura and without status migrainosus, not intractable 05/22/2016 Mixed hyperlipidemia 08/22/2015 JORDAN (obstructive sleep apnea) 09/02/2018 DME [facility] Osteopenia of lumbar spine 11/27/2020 Borderline on DXA 11/2020 Other constipation 07/21/2019 Overactive bladder 05/30/2015 Primary insomnia 07/30/2018 Primary osteoarthritis of left knee 11/05/2019 RLS (restless legs syndrome) 06/04/2019 S/P total knee arthroplasty, left 10/18/2020 Smoker 08/22/2015 Started at age 14 and has smoked up to 1/2 a PPD, quit 12/2017 Thoracic arthritis 03/05/2022 Mild Vitamin D deficiency 01/25/2020 PAST SURGICAL HISTORY Procedure Laterality Date ARTHROSCOPY KNEE DIAGNOSTIC W/WO SYNOVIAL BX SPX Arthroscopy, knee, Left ARTHRS KNE SURG W/MENISCECTOMY MED/LAT W/SHVG Left 12/01/2019 COLONOSCOPY 08/11/2019 one polyp, repeat 10 yrs COLONOSCOPY 12/10/2022 Hyperplastic rectal polyp COLONOSCOPY FLX DX W/COLLJ SPEC WHEN PFRMD 02/28/2009 COLONOSCOPY FLX DX W/COLLJ SPEC WHEN PFRMD 02/04/2018 Colonoscopy EGD 03/24/2018 Dr. Gacria reported as normal. Neg for Hpylori and celiac. EGD W/O BRSH SPEC VARICIES INJ 12/10/2022 Mild nonspecific inflammation in stomach ESOPHAGOGASTRODUODENOSCOPY TRANSORAL DIAGNOSTIC 02/05/2006 EGD ESOPHAGOGASTRODUODENOSCOPY TRANSORAL DIAGNOSTIC 12/21/2014 EGD ESOPHAGOGASTRODUODENOSCOPY TRANSORAL DIAGNOSTIC 03/29/2015 EGD EXC/DSTRJ LINGUAL TONSIL ANY METHOD SPX remote FECAL OCCULT BLOOD TEST 12/19/2016 negative PAST SURGICAL HISTORY OF 10/05/2015 TOT monarc sling PAST SURGICAL HISTORY OF 10/05/2015 Cystourethroscopy PAST SURGICAL HISTORY OF Left 05/03/2016 ulnar nerve decompression STRESS TEST 12/10/2016 normal TOTAL KNEE REPLACEMENT Left 10/18/2020 Left Total knee arthrosplasty FAMILY HISTORY Problem Relation Age of Onset Cancer Mother Hysterectomy Alcohol/Drug Father Alcoholic other (Leukemia) Sister shortly after Heart Attack Brother x 2 Diabetes Brother Heart Maternal Grandmother Hearing Loss Maternal Grandmother Headache Maternal Grandmother Diabetes Maternal Grandmother Stroke Maternal Grandmother Heart Maternal Grandfather Diabetes Maternal Grandfather No Known Problems Paternal Grandmother No Known Problems Paternal Grandfather Coronary Artery Disease Son Hyperlipidemia Son Hypertension Son Hyperlipidemia Son No Known Problems Son Colon Cancer No Family History SOCIAL HISTORY: Social History Tobacco Use Smoking status: Former Packs/day: 0.50 Years: 40.00 Pack years: 20.00 Types: Cigarettes Quit date: 01/07/2018 Years since quittin.1 Smokeless tobacco: Never Tobacco comments: used welbutrin Vaping Use Vaping Use: Never used Substance Use Topics Alcohol use: No Drug use: No Prior to Admission medications as of 02/19/23 1230 Medication Sig Last Dose Taking sucralfate (CARAFATE) 1 gram tablet Take 1 tablet by mouth daily at bedtime. 02/18/2023 Yes Fenofibrate (LOFIBRA) 54 mg tablet Take 1 tablet by mouth once daily. 02/18/2023 Yes topiramate (TOPAMAX) 100 mg tablet Take 1 tablet by mouth twice daily. 02/18/2023 Yes plecanatide (TRULANCE) 3 mg tablet Take 1 tablet (3 mg) by mouth once daily. 02/19/2023 Yes cyanocobalamin (VITAMIN B-12) 1,000 mcg tab Take 1 tablet by mouth once daily. 02/18/2023 Yes ezetimibe (ZETIA) 10 mg tablet Take 1 tablet by mouth once daily. 02/18/2023 Yes ARIPiprazole (ABILIFY) 15 mg tablet Take 15 mg by mouth once daily. 02/18/[address] (PROTONIX) 40 mg tablet Take 1 tablet by mouth twice daily. Take on empty stomach, 1/2 hr before meal. 02/18/2023 Yes rOPINIRole (REQUIP) 1 mg tablet Take one tab by mouth before bed. 02/18/2023 Yes rosuvastatin (CRESTOR) 40 mg tablet Take 1 tablet by mouth daily at bedtime. 02/18/2023 Yes metFORMIN ER (GLUCOPHAGE XR) 500 mg 24 hr tablet Take 1 tablet by mouth daily with breakfast. 02/18/2023 Yes amitriptyline (ELAVIL) 25 mg tablet Take 1 tablet by mouth daily at bedtime. 02/18/2023 Yes levothyroxine (SYNTHROID) 137 mcg tablet Take one daily Fri-Fri and two on Friday. 02/19/2023 Yes lactase (LACTAID) 3,000 unit tablet Take 1 tablet by mouth three times daily with meals. 02/18/2023 Yes acetaminophen (TYLENOL ARTHRITIS ORAL) Take 650 mg by mouth every 8 hours as needed. 02/18/2023 Yes [place]-3 Fatty Acids 100 mg chew [place]-3 Fatty Acids [place]-3 Fatty Acids Active 2000 MG DAILY November 21, 2016 10:19am 11-21-2016 [facility] ([id number]) 02/18/2023 Yes DULoxetine (CYMBALTA) 30 mg capsule Take 1 capsule by mouth once daily. [facility] 02/18/2023 Yes rimegepant (NURTEC ODT) 75 mg disintegrating tablet Take 1 tablet by mouth once daily as needed. 02/16/2023 promethazine (PHENERGAN) 25 mg tablet TAKE 1 TABLET BY MOUTH EVERY 8 HOURS NEEDED FOR NAUSEA semaglutide (OZEMPIC) 1 mg/dose (4 mg/3 mL) pen Inject 1 mg subcutaneously one time a week. benzonatate (TESSALON PERLES) 100 mg capsule Take 1 capsule by mouth three times daily as needed for cough. Patient not taking: Reported on 01/27/2023 polyethylene glycol 3350 (MIRALAX) 17 gram/dose powder Take 17 g by mouth once daily. Dissolve dose in 4 - 8 ounces of liquid and take as directed. tiZANidine (ZANAFLEX) 4 mg tablet TAKE 1 PILL UP TO 3 TIMES PER DAY NEEDED FOR PAINFUL MUSCLE SPASMS 02/13/2023 gabapentin (NEURONTIN) 400 mg capsule Take 1 capsule by mouth three times daily for 180 days. 02/13/2023 ergocalciferol 50,000 unit capsule (VITAMIN D2, DRISDOL) Take one capsule twice a week (Fri and ) 02/17/2023 ondansetron orally disintegrating (ZOFRAN ODT) 4 mg disintegrating tablet Take 1 tablet by mouth every 8 hours as needed for nausea/vomiting. aspirin, enteric coated (ASPIRIN, ENTERIC COATED) 81 mg EC tablet Take 81 mg by mouth once daily. 02/14/2023 famotidine (PEPCID) 40 mg tablet Take 1 tablet by mouth daily before dinner. 02/13/2023 CPAP Mask fitting and 30 day download for autopap 10 -20 cm H2O & formal mask refitting for medical necessity & schedule with the RT, chin strap, head gear, humidity, heated tubing (SACHI), lifetime supplies. G47.33 JORDAN albuterol HFA (PROVENTIL HFA, VENTOLIN HFA) 90 mcg/actuation inhaler Inhale 2 Puffs as instructed every 4 hours as needed for wheezing/shortness of breath. Unknown blood sugar diagnostic (BLOOD GLUCOSE TEST) test strip Test blood sugar(s) 1 times daily. Dx: Other DM Code R73.03 Insulin: No Lancets lancets Test blood sugar(s) 1 times daily. Dx: Other DM Code R73.03 Insulin: No Lactobacillus acidophilus (FLORAJEN) 460 mg (20 billion cell) cap Take 1 capsule by mouth once daily. COMPOUNDED PRESCRIPTION Wheeled rolator walker with ahnd breaks and seat, # 1, Dx:M19.071, Z91.071 Medication Comments documented by Albania Reis MA on 01/27/2019 at 0959. Melatonin Per patient. Albania Reis Ma ALLERGIES Allergen Reactions Ditropan [Oxybutyni* Other: See Comments Nausea,vomiting Benztropine Other: See Comments, Unknown Oxybutynin Other: See Comments Oxycodone GI Upset, Unknown Cogentin [Benztropi* Other: See Comments Blurred vision Depakote [Divalproe* GI Upset Flagyl [Metronidazo* GI Upset Nausea and vomiting Ibuprofen GI Upset Nexium [Esomeprazol* Unknown Percocet [Oxycodone* Other: See Comments Nausea, RDZ, eye swelling Tylenol [Acetaminop* GI Upset diarrhea with high doses REVIEW OF SYSTEMS: PAIN ASSESSMENT: Pain Pain Level: 0 Pain Assessment: Assessment Tool: Verbal (Numeric Rating or Visual Analog Scale) General: Denies fever, chills, and unexpected weight change. Neuro: Denies dizziness and headaches. Denies history of stroke or seizures. +hx migraines Respiratory: Denies history of current cough or dyspnea or pneumonia in the past 6 months. Denies history of respiratory/pulmonary symptoms or problems. Denies history of asthma, COPD. +JORDAN Cardiovascular: Denies history of HTN requiring medication, no history of angina, CHF, DC, cardiac surgery or stents. Denies gangrene or revascularization/amputation for PVD. +HLD GI: see HPI : Denies history of dysuria, frequency or incontinence, kidney stones or chronic kidney disease. 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 : Denies, No LMP recorded. Patient is postmenopausal. Endocrine: Denies history of diabetes. Has not taken steroids within the past 30 days. +hypothyroid Hematology: Denies history of bleeding or clotting disorder. +taking ASA Oncology: No history of cancer metastasis, chemo within 30 days, or radiotherapy within 90 days. Has not lost 10% of body weight in 6 months. Psych: +anxiety, depression Musculoskeletal: +arthritis Skin: Denies open sores, lesions, rashes, or itching Objective PHYSICAL EXAM: VITALS: BP 115/76 Pulse 66 Temp (Src) 97.7 (Temporal) Resp 22 Ht 5' 3 (1.60m) Wt 193 lb (87.5kg) SpO2 100% BMI 34.20 kg/(m^2). O2 Therapy: Room Air General: Alert and oriented, No acute distress, obese Skin: Normal color, no rash, no lesions. HEENT: EOM, pupils equal, round and reactive. Cardiovascular: Normal S1 & S2, no rubs, murmurs or gallops. No JVD. Pulse regular. Lungs: Normal breath sounds, no wheezes or crackles. Abdomen: Soft, non-tender, no rigidity. Extremities: No deformity, no edema or tenderness, no joint swelling or clubbing. Good capillary refill Neurological: Normal cognition and motor skills. Pulses: Radial pulses normal +2. Diagnostic tests reviewed for today's visit: Lab Value Units Date High Low HB 12.6 g/dL 09/07/2022 15.5 11.5 HCT 41.1 % 09/07/2022 46.0 36.0 WBC 5.55 k/uL 09/07/2022 11.00 3.70 PLT 378 k/uL 09/07/2022 400 150 NA 138 mmol/L 12/27/2022 144 136 K 4.0 mmol/L 12/27/2022 5.1 3.7 GLUC 93 mg/dL 12/27/2022 99 74 BUN 12 mg/dL 12/27/2022 21 7 CREAT 0.96 mg/dL 12/27/2022 0.96 0.58 PTSEC No results within date range. INR No results within date range. APTT No results within date range. ALT 10 U/L 09/07/2022 38 7 AST 20 U/L 09/07/2022 35 13 TBILI 0.2 mg/dL 09/07/2022 1.3 0.2 TSH 3.310 mIU/L 10/01/2022 4.200 0.270 Lab Value Units Date High Low HCGQT No results within date range. UHCG No results within date range. HCG, BODY* No results within date range. Lab Value Units Date High Low ABORHD No results within date range. ABSCREEN No results within date range. Hemoglobin A1C (%) Date Value 09/07/2022 6.2 03/27/2022 6.1 08/16/2021 6.2 05/17/2021 6.2 03/16/2021 6.4 08/15/2020 6.3 03/01/2020 6.1 Assessment/Plan I have confirmed and edited as necessary, the PFSH and ROS. ANESTHESIA FINDINGS: Intubation History: No history of difficult intubation Significant Anesthesia Considerations: Postop nausea/vomiting FAMILY PROBLEMS WITH ANESTHESIA: no history of adverse anesthetic event METS: Walk a block or two on level ground (2.75 METs) Patient denies any chest pain or undue shortness of breath with the above physical activity. Patient has the following medical conditions which may affect claudio-operative course Problem List Items Addressed This Visit Cardiovascular Mixed hyperlipidemia Current Assessment & Plan Taking Zetia Pulmonary JORDAN (obstructive sleep apnea) Overview On CPAP-DME [employer]: [facility]--# [phone]; FAX# [phone]. Seeing [facility] Current Assessment & Plan Using CPAP Gastrointestinal Gastroesophageal reflux disease with esophagitis Relevant Orders EGD - THERAPEUTIC, EUS, OR TUBE INTERVENTIONS Other Prediabetes Current Assessment & Plan Taking Metformin and Ozempic Preop testing Current Assessment & Plan medical condition which may affect the claudio-operative course were addressed in the visit today PLAN Procedure Diagnosis: Gastroesophageal reflux disease with esophagitis without hemorrhage [K21.00] Planned Procedure: EGD Planned Anesthetic: MAC I spent a total of 30 minutes on the date of the service which included preparing to see the patient, [id number] patient care, completing clinical documentation, performing a medically appropriate examination, and counseling and educating the patient/family/caregiver. SIGNATURE: Melva Griffiths APRN.CNP PATIENT NAME: Chanda Haq DATE: February 19, 2023 TIME: 12:24 PM PAGER/CONTACT #: documented in this encounter [facility] 02-19-2023 Nurse Note Other: The patient was brought into the procedure room and a time out was done.Patient denies use of muscle relaxers. Baby ASA taken 7 days ago. After confirmation of potential allergies, a topical analgesic was used to numb the left nares followed by the trans-nasal insertion of a High Resolution Manometry catheter. Pressure bands of the UES and LES were observed on the color contour. The patient was instructed to take a deep breath to verify placement of catheter, diaphragmatic pinch noted on inspiration. The patient was assisted to left lateral position and the catheter stabilized. The patient was encouraged to relax while acclimating to the catheter for approximately 5 minutes. A 30 second baseline pressure was obtained to identify the UES and LES followed by a series of ten wet swallows, using 5mL of room temperature normal saline to assess esophageal motility. At the conclusion of the procedure the catheter was removed. The patient tolerated the procedure well. No heme noted when catheter removed. documented in this encounter [facility] 02-13-2023 Miscellaneous Notes Order and last ov note faxed as requested. Jennifer Nesbitt LPN Order printed. Patient calls to request an order for a bedside commode be faxed to her [employer] case management assistant to assist patient after surgical procedure (esophageal manometry) scheduled for 02/19/2023. Patient reports she needs an order and the most recent in-person OV note faxed to [facility] at [phone]. Most recent OV was 12/05/2022 with Olvin. Forwarding to Olvin for review. Pended order with diagnosis. Angie Perry RN documented in this encounter [facility] 02-06-2023 Miscellaneous Notes The following approved medication requests have been transmitted electronically. Requested Prescriptions Signed Prescriptions Disp Refills topiramate (TOPAMAX) 100 mg tablet 60 tablet 5 Sig: Take 1 tablet by mouth twice daily. Authorizing Provider: GOGO LOWERY APRN.DATABASE SECURITY EXPERT Physician: Sebastián Call from patient requesting refill. Please E-Scribe Last OV: 01/22/2023 with Sebastián Future OV: Not Scheduled. Requested Prescriptions Pending Prescriptions Disp Refills topiramate (TOPAMAX) 100 mg tablet 60 tablet 5 Sig: Take 1 tablet by mouth twice daily. Pharmacy Name: [facility] documented in this encounter [facility] 02-06-2023 Miscellaneous Notes Patient has been identified by name and date of : Yes Patient phones for refill(s): Requested Prescriptions Pending Prescriptions Disp Refills sucralfate (CARAFATE) 1 gram tablet 90 tablet 1 Sig: Take 1 tablet by mouth daily at bedtime. Date of last office visit in primary care: 12/05/2022 Next appointment scheduled 04/02/23 Please advise. Thank you. Elle Mcclelland LPN documented in this encounter [facility] 02-06-2023 Miscellaneous Notes Patient has been identified by name and date of : Yes Patient phones for refill(s): Requested Prescriptions Pending Prescriptions Disp Refills Fenofibrate (LOFIBRA) 54 mg tablet 30 tablet 5 Sig: Take 1 tablet by mouth once daily. Date of last office visit in primary care: 12/05/2022 Next appointment scheduled 04/02/2023 Please advise. Thank you. Elle Mcclelland LPN documented in this encounter [facility] 02-04-2023 Miscellaneous Notes Patient phones requesting refills as follows: Requested Prescriptions Pending Prescriptions Disp Refills plecanatide (TRULANCE) 3 mg tablet 30 tablet 2 Sig: Take 1 tablet (3 mg) by mouth once daily. Please review and advise. Enma Ramos Ma documented in this encounter [facility] 01-29-2023 Note HNO ID: [id number] Author: RT Jose(R) Service: Radiology Author Type: Technologist Type: Progress Notes Filed: 01/29/2023 8:57 AM Note Text: Radiology Service Progress Note PATIENT NAME: Chanda Haq DATE OF SERVICE: January 29, 2023 TIME: 8:56 AM PATIENT IDENTITY VERIFICATION COMPLETED USING TWO (2) IDENTIFIERS: Name and Date of confirmed by patient verbally. FALL SCREENING: Has the patient had 2 falls in the last year or 1 fall with injury or currently using an Ambulatory Assistive Device (Walker, Cane, Wheelchair, Crutches, etc.)? Yes, Patient High Risk for Falls What interventions were put in place to prevent falls during this visit? [place] Falls Risk Wristband Applied, Instructed Patient to Remain Seated (Not on Exam Table) Until Exam, and cane. PATIENT GENDER DATA: Female. status: : No status: NO. PATIENT RELEVANT IMPLANT DATA REVIEWED: Not Applicable RADIOLOGY DEPARTMENT: Bone Density PERIPHERAL IV DATA: Not applicable SIGNED BY: RT Jose(Clinton)(M) January 29, 2023 8:56 AM [facility] 01-29-2023 History of Present illness Narrative Radiology Service Progress Note PATIENT NAME: Chanda Haq DATE OF SERVICE: January 29, 2023 TIME: 8:56 AM PATIENT IDENTITY VERIFICATION COMPLETED USING TWO (2) IDENTIFIERS: Name and Date of confirmed by patient verbally. FALL SCREENING: Has the patient had 2 falls in the last year or 1 fall with injury or currently using an Ambulatory Assistive Device (Walker, Cane, Wheelchair, Crutches, etc.)? Yes, Patient High Risk for Falls What interventions were put in place to prevent falls during this visit? [place] Risk Wristband Applied, Instructed Patient to Remain Seated (Not on Exam Table) Until Exam, and cane. PATIENT GENDER DATA: Female. status: : No status: NO. PATIENT RELEVANT IMPLANT DATA REVIEWED: Not Applicable RADIOLOGY DEPARTMENT: Bone Density PERIPHERAL IV DATA: Not applicable SIGNED BY: RT Jose(Clinton)(M) January 29, 2023 8:56 AM documented in this encounter [facility] 01-27-2023 Note HNO ID: [id number] Author: Laura Dorantes MD Service: ? Author Type: Physician Type: Progress Notes Filed: 01/27/2023 11:28 AM Note Text: RHEUMATOLOGY PROGRESS NOTE Patient is here for a follow up visit for Patient presents with: Positive REBA HPI: Chanda Haq is a 62 year old female who presents joint pain She is here to discuss results. Brief Rheumatological history - She has joint pain over several areas. She has h/o positive REBA. Pain over neck, shoulders, elbows, feet, hands x several years. S/p left knee replacement. Ulnar nerve surgery. She tried tylenol arthritis, heat, ice, nerve blocks, ablation. On gabapentin, Zanaflex, topamax, Cymbalta. She was noted to have abnormal labs REBA, RF, dsDNA and referred here. She sees pain management. In walking boot. Stress fracture? Thyroid disease Bladder sling. Family h/o autoimmune diseases - none Smoking - Rheumatology REVIEW OF SYSTEMS: Constitutional: Recent Weight Change: YES losing Fatigue: Fever: No Night sweats: No Heent: Alopecia: YES H/o Inflammatory eye disease (iritis/scleritis): No Hearing loss: No Frequent sinusitis: No Oral ulcers: YES Sicca: YES Parotid swelling: No Hoarseness: No Dysphagia: No Heme/lymph: Lymphadenopathy: No Hematological abnormalities (anemia, thrombocytopenia, leukopenia): No Abnormal bleeding: No Skin: Malar or discoid lesions: No Photosensitivity: No Other rashes: YES cheeks Raynaud's phenomenon: YES Hives: No Tightness: No Nodules/bumps: No Easy Bruising: No Nail changes: No H/o psoriasis: No Gastroenterology: Nausea: {YES Vomiting: YES she will be seeing GI Change in bowel movements: YES Heartburn: No Respiratory: Dry cough/SOB: No SOB sometimes Cardiovascular: Pain in chest: No Musculoskeletal: Per HPI Genitourinary: Vaginal dryness: No Rash/ulcers: No Neurological: Headaches: YES Sensitivity or pain of hands and/or feet: YES Psychiatry: Anxiety: YES Depression: YES Poor sleep: YES chronic, JORDAN on CPAP H/o loss: No H/o thrombosis: No Increased susceptibility to infection: No PAST MEDICAL HISTORY Diagnosis Date Acquired hypothyroidism 08/22/2015 ACUTE GASTRITIS W/O HEMORRHAGE 02/05/2006 Anxiety and depression 10/05/2020 Arthritis 05/18/2020 Arthritis of lumbar spine 03/05/2022 Mod Arthritis of right foot 09/02/2018 At high risk for falls 09/02/2018 Backache, unspecified 01/11/2013 Bilateral carotid artery stenosis 09/25/202009/2020 20-40% bilaterally Bipolar I disorder (HCC) 12/20/2005 [facility] Cervical disc disorder with radiculopathy 09/27/2021 Cervical radiculopathy 09/19/2021 Cervical spondylosis 09/19/2021 Seeing pain management Cervical spondylosis without myelopathy 09/27/2021 Cervical stenosis of spinal canal 09/19/2021 Chronic pain of left knee 06/19/2019 Class 1 obesity due to excess calories without serious comorbidity with body mass index (BMI) of 33.0 to 33.9 in adult 03/03/2018 Current use of proton pump inhibitor 03/03/2018 Diaphragmatic hernia without mention of obstruction or gangrene 02/05/2006 Elevated hemoglobin A1c 06/29/2018 Encounter for screening mammogram for breast cancer 03/05/2019 Ex-smoker 08/22/2015 Started at age 14 and has smoked up to 1/2 a PPD, quit 12/2017 External hemorrhoids without mention of complication Gastroesophageal reflux disease with esophagitis 08/22/2015 Hearing loss Hearing aids in both ears. History of transient ischemic attack (TIA) 11/05/2019 Incontinence 02/20/[address] Jordan Irritable bowel syndrome with constipation 03/03/2018 Lactose intolerance 03/05/2019 Lung nodules 12/11/2017 CT 12/11/[address] 05/2018 stable needs repeat in 2 yrs Medicare annual wellness visit, subsequent 03/03/2018 Medicare Part B: 06/17/2001 last done: 03/05/2019 Migraine without aura and without status migrainosus, not intractable 05/22/2016 Mixed hyperlipidemia 08/22/2015 JORDAN (obstructive sleep apnea) 09/02/2018 DME DASCO Osteopenia of lumbar spine 11/27/2020 Borderline on DXA 11/2020 Other constipation 07/21/2019 Overactive bladder 05/30/2015 Primary insomnia 07/30/2018 Primary osteoarthritis of left knee 11/05/2019 RLS (restless legs syndrome) 06/04/2019 S/P total knee arthroplasty, left 10/18/2020 Smoker 08/22/2015 Started at age 14 and has smoked up to 1/2 a PPD, quit 12/2017 Thoracic arthritis 03/05/2022 Mild Vitamin D deficiency 01/25/2020 PAST SURGICAL HISTORY Procedure Laterality Date ARTHROSCOPY KNEE DIAGNOSTIC W/WO SYNOVIAL BX SPX Arthroscopy, knee, Left ARTHRS KNE SURG W/MENISCECTOMY MED/LAT W/SHVG Left 12/01/2019 COLONOSCOPY 08/11/2019 one polyp, repeat 10 yrs COLONOSCOPY 12/10/2022 Hyperplastic rectal polyp COLONOSCOPY FLX DX W/COLLJ SPEC WHEN PFRMD 02/28/2009 COLONOSCOPY FLX DX W/COLLJ SPEC WHEN PFRMD 02/04/2018 Colonoscopy EGD 03/24/2018 Dr. Jose roque (more content not included)... [facility] 01-27-2023 Instructions Laura Dorantes MD - 01/27/2023 10:37 AM EDT BONE MINERAL DENSITY PATIENT INSTRUCTIONS === Bone mineral density testing measures the amount of calcium in certain parts of your bones. This information determines how strong your bones are. The test is used to detect osteoporosis, a disease in which the bone's mineral content and density are low, increasing a person's risk of fractures. The lumbar spine (lower back) and the hip are the skeletal sites usually examined. For the test, remember that: 1. You cannot take this test if you are . 2. Eat a normal diet on the day of the test. 3. Take your medications as you normally would. 4. DO NOT take calcium supplements (such as Tums) for 24 hours before the test. 5. On the day of the test, leave valuables (jewelry or credit cards) at home. 6. The test should be performed prior to oral, rectal or IV contrast studies, or at least 7 days after any of these studies. For the test, you may be asked to wear a hospital gown. You will lie on your back, on a padded table, in a comfortable position. Generally, you can resume your usual activities immediately. documented in this encounter [facility] 01-27-2023 History of Present illness Narrative RHEUMATOLOGY PROGRESS NOTE Patient is here for a follow up visit for Patient presents with: Positive REBA HPI: Chanda Haq is a 62 year old female who presents joint pain She is here to discuss results. Brief Rheumatological history - She has joint pain over several areas. She has h/o positive REBA. Pain over neck, shoulders, elbows, feet, hands x several years. S/p left knee replacement. Ulnar nerve surgery. She tried tylenol arthritis, heat, ice, nerve blocks, ablation. On gabapentin, Zanaflex, topamax, Cymbalta. She was noted to have abnormal labs REBA, RF, dsDNA and referred here. She sees pain management. In walking boot. Stress fracture? Thyroid disease Bladder sling. Family h/o autoimmune diseases - none Smoking - Rheumatology REVIEW OF SYSTEMS: Constitutional: Recent Weight Change: YES losing Fatigue: Fever: No Night sweats: No Heent: Alopecia: YES H/o Inflammatory eye disease (iritis/scleritis): No Hearing loss: No Frequent sinusitis: No Oral ulcers: YES Sicca: YES Parotid swelling: No Hoarseness: No Dysphagia: No Heme/lymph: Lymphadenopathy: No Hematological abnormalities (anemia, thrombocytopenia, leukopenia): No Abnormal bleeding: No Skin: Malar or discoid lesions: No Photosensitivity: No Other rashes: YES cheeks Raynaud's phenomenon: YES Hives: No Tightness: No Nodules/bumps: No Easy Bruising: No Nail changes: No H/o psoriasis: No Gastroenterology: Nausea: {YES Vomiting: YES she will be seeing GI Change in bowel movements: YES Heartburn: No Respiratory: Dry cough/SOB: No SOB sometimes Cardiovascular: Pain in chest: No Musculoskeletal: Per HPI Genitourinary: Vaginal dryness: No Rash/ulcers: No Neurological: Headaches: YES Sensitivity or pain of hands and/or feet: YES Psychiatry: Anxiety: YES Depression: YES Poor sleep: YES chronic, JORDAN on CPAP H/o loss: No H/o thrombosis: No Increased susceptibility to infection: No PAST MEDICAL HISTORY Diagnosis Date Acquired hypothyroidism 08/22/2015 ACUTE GASTRITIS W/O HEMORRHAGE 02/05/2006 Anxiety and depression 10/05/2020 Arthritis 05/18/2020 Arthritis of lumbar spine 03/05/2022 Mod Arthritis of right foot 09/02/2018 At high risk for falls 09/02/2018 Backache, unspecified 01/11/2013 Bilateral carotid artery stenosis 09/25/202009/2020 20-40% bilaterally Bipolar I disorder (HCC) 12/20/2005 [facility] Cervical disc disorder with radiculopathy 09/27/2021 Cervical radiculopathy 09/19/2021 Cervical spondylosis 09/19/2021 Seeing pain management Cervical spondylosis without myelopathy 09/27/2021 Cervical stenosis of spinal canal 09/19/2021 Chronic pain of left knee 06/19/2019 Class 1 obesity due to excess calories without serious comorbidity with body mass index (BMI) of 33.0 to 33.9 in adult 03/03/2018 Current use of proton pump inhibitor 03/03/2018 Diaphragmatic hernia without mention of obstruction or gangrene 02/05/2006 Elevated hemoglobin A1c 06/29/2018 Encounter for screening mammogram for breast cancer 03/05/2019 Ex-smoker 08/22/2015 Started at age 14 and has smoked up to 1/2 a PPD, quit 12/2017 External hemorrhoids without mention of complication Gastroesophageal reflux disease with esophagitis 08/22/2015 Hearing loss Hearing aids in both ears. History of transient ischemic attack (TIA) 11/05/2019 Incontinence 02/20/[address] Jordan Irritable bowel syndrome with constipation 03/03/2018 Lactose intolerance 03/05/2019 Lung nodules 12/11/2017 CT 12/11/[address] 05/2018 stable needs repeat in 2 yrs Medicare annual wellness visit, subsequent 03/03/2018 Medicare Part B: 06/17/2001 last done: 03/05/2019 Migraine without aura and without status migrainosus, not intractable 05/22/2016 Mixed hyperlipidemia 08/22/2015 JORDAN (obstructive sleep apnea) 09/02/2018 DME DASCO Osteopenia of lumbar spine 11/27/2020 Borderline on DXA 11/2020 Other constipation 07/21/2019 Overactive bladder 05/30/2015 Primary insomnia 07/30/2018 Primary osteoarthritis of left knee 11/05/2019 RLS (restless legs syndrome) 06/04/2019 S/P total knee arthroplasty, left 10/18/2020 Smoker 08/22/2015 Started at age 14 and has smoked up to 1/2 a PPD, quit 12/2017 Thoracic arthritis 03/05/2022 Mild Vitamin D deficiency 01/25/2020 PAST SURGICAL HISTORY Procedure Laterality Date ARTHROSCOPY KNEE DIAGNOSTIC W/WO SYNOVIAL BX SPX Arthroscopy, knee, Left ARTHRS KNE SURG W/MENISCECTOMY MED/LAT W/SHVG Left 12/01/2019 COLONOSCOPY 08/11/2019 one polyp, repeat 10 yrs COLONOSCOPY 12/10/2022 Hyperplastic rectal polyp COLONOSCOPY FLX DX W/COLLJ SPEC WHEN PFRMD 02/28/2009 COLONOSCOPY FLX DX W/COLLJ SPEC WHEN PFRMD 02/04/2018 Colonoscopy EGD 03/24/2018 Dr. Garcia reported as normal. Neg for Hpylori and celiac. EGD W/O BRSH SPEC VARICIES INJ 12/10/2022 Mild nonspecific inflammation in stomach ESOPHAGOGASTRODUODENOSCOPY TRANSORAL DIAGNOSTIC 02/05/2006 EGD ESOPHAGOGASTRODUODENOSCOPY TRANSORAL DIAGNOSTIC 12/21/2014 EGD ESOPHAGOGASTRODUODENOSCOPY TRANSORAL DIAGNOSTIC 03/29/2015 EGD EXC/DSTRJ LINGUAL TONSIL ANY METHOD SPX remote FECAL OCCULT BLOOD TEST 12/19/2016 negative PAST SURGICAL HISTORY OF 10/05/2015 TOT monarc sling PAST SURGICAL HISTORY OF 10/05/2015 Cystourethroscopy PAST SURGICAL HISTORY OF Left 05/03/2016 ulnar nerve decompression STRESS TEST 12/10/2016 normal TOTAL KNEE REPLACEMENT Left 10/18/2020 Left Total knee arthrosplasty History Review: I have reviewed and modified as needed, the following during this visit: Allergies, Past Medical History, Past Surgical History, Past Family History, Past Social History. BP 111/56 Pulse 80 Temp 37.1 C (98.7 F) (Temporal) Resp 14 Ht 156.8 cm (5' 1.75 ) Wt 87.5 kg (193 lb) BMI 35.59 kg/m Physical Exam GENERAL: Well appearing, alert, comfortable, in no acute distress, well-hydrated, well nourished. HEENT: Negative for external ears normal. Canals are clear. Both TMs visualized and are normal. Eye Exam normal. External nose normal, no nasal ulcer or throat ulcer. NECK: NECK Supple, no adenopathy; thyroid symmetric, normal size, no bruits CARDIAC: regular rate and rhythm, No murmur asculated., and Equal peripheral pulses RESPIRATORY: Lungs clear to auscultation. No wheezing, rhonchi, rales VASCULAR: RRR without murmur, gallop, or rubs. No ectopy. NEURO: Motor and sensory exam normal MOTOR: Normal; including tone, gait, stressed gait, power and coordination. SKIN: Negative for alopecia, skin rash, malar rash, skin lesion, skin ulcer, pits, thickening, color changes, telangiectasias, nail changes, nail ridging, nail pitting, onycholysis MUSCULOSKELETAL: DIPS: heberdens nodes PIPS: Normal MCPs: Normal Wrists: Normal Elbows: Normal Shoulders: Normal C-Spine: fixed flexion Hips: Normal Knees: Normal Ankles: Normal MTPs / Toes: Normal Arches: Normal Lab Results: Glucose 93 12/27/2022 ALT 10 09/07/2022 WBC 5.55 09/07/2022 Hemoglobin 12.6 09/07/2022 Platelet Count 378 09/07/2022 WSR 30 10/01/2022 CRP 0.5 10/01/2022 Serology: Latest Reference Range & Units Most Recent REBA Negative Positive ! 10/01/22 15:06 REBA Titer 1:160 10/01/22 15:06 REBA Pattern Nuclear homogenous 10/01/22 15:06 DNA Antibody w/Confirmation <30 IU/mL 63.56 (H) 10/01/22 15:06 Anti-FACTORY MAINTENANCE MANAGER <1.0 AI <0.2 10/01/22 15:06 Ribosomal FACTORY MAINTENANCE MANAGER Ab <1.0 AI <0.2 10/01/22 15:06 Anti-SSB <1.0 AI <0.2 10/01/22 15:06 Anti-Sm <1.0 AI <0.2 10/01/22 15:06 Sm Antibody Negative Negative 10/01/22 15:06 Anti-SSA <1.0 AI 0.6 10/01/22 15:06 Scl-70 Abs, EIA <1.0 AI <0.2 10/01/22 15:06 Yulia 1 Antibody <1.0 AI <0.2 10/01/22 15:06 Chromatin Ab <1.0 AI <0.2 10/01/22 15:06 Centromere Ab <1.0 AI <0.2 10/01/22 15:06 Rheumatoid Factor <16 IU/mL 43 (H) 10/01/22 15:06 Ribosomal FACTORY MAINTENANCE MANAGER Qualitative Negative Negative 10/01/22 15:06 FACTORY MAINTENANCE MANAGER Antibody QUAL Negative Negative 10/01/22 15:06 SSA Antibody Qual Negative Negative 10/01/22 15:06 SSB Antibody Qual Negative Negative 10/01/22 15:06 CENTROMERE AB QUAL Negative Negative 10/01/22 15:06 Chromatin Ab Qual Negative Negative 10/01/22 15:06 YULIA 1 ANTIBODY QUAL Negative Negative 10/01/22 15:06 Scleroderma Ab Qual Negative Negative 10/01/22 15:06 !: Data is abnormal (H): Data is abnormally high Latest Reference Range & Units 10/09/22 13:26 Crithidia lucillae Negative Negative Findings: Knee arthroplasty. Alignment appears intact. No perihardware osteolysis. No hardware fracture. No fracture or dislocation. Low-lying patella. No soft tissue abnormality identified. IMPRESSION: Kyphotic cervical curvature in the sagittal plane centered at C6. The cord is draped over the kyphotic curvature, but there is otherwise no substantive canal or foraminal narrowing. Other general findings as noted. Anatomic Variant: None. Assume 7 cervical vertebrae with counting from the craniocervical junction. FINDINGS: No acute fractures or subluxations are noted. The disc spaces are grossly maintained. There is mild osteophyte formation. There is no paraspinal mass or bony destructive process. Others: There are degenerative changes in the lower cervical spine. DEXA 2020 - IMPRESSION: Borderline osteopenia of the lumbar spine. Normal bone density of the left hip. IMPRESSION: Findings are suggestive of degenerative changes in the bilateral hands. FINDINGS: Symmetric bilateral SI joints, without joint space narrowing or widening. No bony erosions seen. No hip joint space narrowing. The mineralization of the bones is normal. There is no significant soft tissue swelling. Assessment and Plan (M81.0) Osteoporosis, unspecified osteoporosis type, unspecified pathological fracture presence (primary encounter diagnosis) (M15.9) Primary osteoarthritis involving multiple joints (M25.50) Pain in joint, multiple sites (R76.8) REBA positive 62 year old female with chronic pain, was noted to have positive REBA, dsDNA, RF. Patient has severe osteoarthritis of several joints as seen on her x-rays. She has had left knee replacement. She has underwent several treatment procedures to help with neck pain and back pain however has not found much relief. She is currently on several medications to help with pain. Suspicion is low for an inflammatory arthritis. She also has thyroid disease and we see positive serologies in association commonly. update BMD, reports balance issues. Dizziness, low BP. She will d/w PCP. No signs of inflammatory arthritis. Crithidia DNA is negative. No signs of lupus. She has OA. Office Visit on 01/27/23 DXA-AXIAL SKELETON No orders of the defined types were placed in this encounter. No follow-ups on file. Laura Dorantes MD documented in this encounter [facility] 01-22-2023 Note [facility] 01-22-2023 History of Present illness Narrative Headache Center - Follow up Virtual Visit During this COVID-19 pandemic, patient's headache clinic evaluation was scheduled as a virtual visit using the following platform Zoom Chanda Haq was identified by name and and consented to the video evaluation and its limitations. Based on this evaluation it may be necessary for them to schedule a follow up evaluation with me or other neurologists for formal physical examination and if necessary,other studies. Accompanied by: Self Primary Problem List: ACTIVE PROBLEM LIST Bipolar I Disorder (Hcc) Diaphragmatic hernia without mention of obstruction or gangrene Backache, Unspecified Incontinence Overactive Bladder Mixed Hyperlipidemia Ex-Smoker Gastroesophageal Reflux Disease With Esophagitis Acquired Hypothyroidism Migraine Without Aura and Without Status Migrainosus, Not Intractable Lung Nodules Encounter for Gynecological Examination Medicare Annual Wellness Visit, Subsequent Class 1 Obesity Due to Excess Calories Without Serious Comorbidity With Body Mass Index (Bmi) of 33.0 to 33.9 in Adult Irritable Bowel Syndrome With Constipation Prediabetes Primary Insomnia Jordan (Obstructive Sleep Apnea) At High Risk for Falls Arthritis of Right Foot Hearing Loss Lactose Intolerance Encounter for Screening Mammogram for Breast Cancer Rls (Restless Legs Syndrome) Chronic Pain of Left Knee Other Constipation Medication Management History of Transient Ischemic Attack (Tia) Primary Osteoarthritis of Left Knee Vitamin D Deficiency Arthritis Bilateral Carotid Artery Stenosis Hypotension Anxiety and Depression S/P Total Knee Arthroplasty, Left Osteopenia of Lumbar Spine Cervical Spondylosis Cervical Stenosis of Spinal Canal Cervical Radiculopathy Cervical Spondylosis Without Myelopathy Cervical Disc Disorder With Radiculopathy Thoracic Arthritis Arthritis of Lumbar Spine Lumbar Pain Acute Right-Sided Thoracic Back Pain Nausea Scoliosis Neck Pain Neck Muscle Weakness Dropped Head Syndrome Radiculopathy, Cervical Region Gastroparesis Chief Complaint: headaches Impression and Plan from last visit 10/16/2022, me: IMPRESSION: Chanda Haq is a 62 year old year old female, with a history of JORDAN, LTKRA, expansile skull mass, bipolar 1 disorder, and migraines. Her neurological examination is essentially normal at this visit. Headaches have worsened, likely strong cervical component and contribution of untreated JORDAN. We will increase Topamax which she tolerates well, to 100 bid. She should not be using triptans given her numerous cardiovascular risk factors (HTN, HLD, CAD, pre DM, hx of TIA) so we will try gepant for rescue instead. PLAN: - increase Topamax to 100 bid, rx sent to pharmacy - start trial nurtec prn instead of sumatriptan, rx sent to pharmacy - continue all other meds as rx'ed - restart CPAP for JORDAN - continue following with rheum, sleep, pain specialists - follow up in 3 months, sooner prn Interval Headache History: Chanda Haq is a 62 year old year old female, with a history of JORDAN, LTKRA, expansile skull mass, bipolar 1 disorder, and migraines following up today virtually for headaches. Since the last visit, the patient states that her headaches have improved. She has only seven rdz a month now since increasing Topamax. Nurtec is also working well, within an hour it fully resolves her headache, and she has no side effects. A little sleepy on Topamax 100 bid but this is not bothersome to her, mostly her GI issues make her not feel well. Saw GI and given meds so she is able to at least eat a BRAT diet now, but planning more tests followed by gastric bypass and she is worried about this. Headache 1 Days missed from work or school in the last month: 5 days Preventative: Topamax 100 bid, Elavil 25, Cymbalta 30 Abortive: Nurtec, tizanadine, ice Medications effective? yes # of doses of abortive medications per month: 4 PAST MEDICAL HISTORY Diagnosis Date Acquired hypothyroidism 08/22/2015 ACUTE GASTRITIS W/O HEMORRHAGE 02/05/2006 Anxiety and depression 10/05/2020 Arthritis 05/18/2020 Arthritis of lumbar spine 03/05/2022 Mod Arthritis of right foot 09/02/2018 At high risk for falls 09/02/2018 Backache, unspecified 01/11/2013 Bilateral carotid artery stenosis 09/25/202009/2020 20-40% bilaterally Bipolar I disorder (HCC) 12/20/2005 Se[facility] Stinger at [facility] Cervical disc disorder with radiculopathy 09/27/2021 Cervical radiculopathy 09/19/2021 Cervical spondylosis 09/19/2021 Seeing pain management Cervical spondylosis without myelopathy 09/27/2021 Cervical stenosis of spinal canal 09/19/2021 Chronic pain of left knee 06/19/2019 Class 1 obesity due to excess calories without serious comorbidity with body mass index (BMI) of 33.0 to 33.9 in adult 03/03/2018 Current use of proton pump inhibitor 03/03/2018 Diaphragmatic hernia without mention of obstruction or gangrene 02/05/2006 Elevated hemoglobin A1c 06/29/2018 Encounter for screening mammogram for breast cancer 03/05/2019 Ex-smoker 08/22/2015 Started at age 14 and has smoked up to 1/2 a PPD, quit 12/2017 External hemorrhoids without mention of complication Gastroesophageal reflux disease with esophagitis 08/22/2015 Hearing loss Hearing aids in both ears. History of transient ischemic attack (TIA) 11/05/2019 Incontinence 02/20/[address] Jordan Irritable bowel syndrome with constipation 03/03/2018 Lactose intolerance 03/05/2019 Lung nodules 12/11/2017 CT 12/11/[address] 05/2018 stable needs repeat in 2 yrs Medicare annual wellness visit, subsequent 03/03/2018 Medicare Part B: 06/17/2001 last done: 03/05/2019 Migraine without aura and without status migrainosus, not intractable 05/22/2016 Mixed hyperlipidemia 08/22/2015 JORDAN (obstructive sleep apnea) 09/02/2018 DME DASCO Osteopenia of lumbar spine 11/27/2020 Borderline on DXA 11/2020 Other constipation 07/21/2019 Overactive bladder 05/30/2015 Primary insomnia 07/30/2018 Primary osteoarthritis of left knee 11/05/2019 RLS (restless legs syndrome) 06/04/2019 S/P total knee arthroplasty, left 10/18/2020 Smoker 08/22/2015 Started at age 14 and has smoked up to 1/2 a PPD, quit 12/2017 Thoracic arthritis 03/05/2022 Mild Vitamin D deficiency 01/25/2020 PAST SURGICAL HISTORY Procedure Laterality Date ARTHROSCOPY KNEE DIAGNOSTIC W/WO SYNOVIAL BX SPX 1990s Arthroscopy, knee, Left ARTHRS KNE SURG W/MENISCECTOMY MED/LAT W/SHVG Left 12/01/2019 COLONOSCOPY 08/11/2019 one polyp, repeat 10 yrs COLONOSCOPY 12/10/2022 Hyperplastic rectal polyp COLONOSCOPY FLX DX W/COLLJ SPEC WHEN PFRMD 02/28/2009 COLONOSCOPY FLX DX W/COLLJ SPEC WHEN PFRMD 02/04/2018 Colonoscopy EGD 03/24/2018 Dr. Garcia reported as normal. Neg for Hpylori and celiac. EGD W/O BRSH SPEC VARICIES INJ 12/10/2022 Mild nonspecific inflammation in stomach ESOPHAGOGASTRODUODENOSCOPY TRANSORAL DIAGNOSTIC 02/05/2006 EGD ESOPHAGOGASTRODUODENOSCOPY TRANSORAL DIAGNOSTIC 12/21/2014 EGD ESOPHAGOGASTRODUODENOSCOPY TRANSORAL DIAGNOSTIC 03/29/2015 EGD EXC/DSTRJ LINGUAL TONSIL ANY METHOD SPX remote FECAL OCCULT BLOOD TEST 12/19/2016 negative PAST SURGICAL HISTORY OF 10/05/2015 TOT monarc sling PAST SURGICAL HISTORY OF 10/05/2015 Cystourethroscopy PAST SURGICAL HISTORY OF Left 05/03/2016 ulnar nerve decompression STRESS TEST 12/10/2016 normal TOTAL KNEE REPLACEMENT Left 10/18/2020 Left Total knee arthrosplasty ALLERGIES Allergen Reactions Ditropan [Oxybutyni* Other: See Comments Nausea,vomiting Benztropine Other: See Comments, Unknown Oxybutynin Other: See Comments Oxycodone GI Upset, Unknown Cogentin [Benztropi* Other: See Comments Blurred vision Depakote [Divalproe* GI Upset Flagyl [Metronidazo* GI Upset Nausea and vomiting Ibuprofen GI Upset Nexium [Esomeprazol* Unknown Percocet [Oxycodone* Other: See Comments Nausea, RDZ, eye swelling Tylenol [Acetaminop* GI Upset diarrhea with high doses Current Medications: promethazine (PHENERGAN) 25 mg tablet TAKE 1 TABLET BY MOUTH EVERY 8 HOURS NEEDED FOR NAUSEA rimegepant (NURTEC ODT) 75 mg disintegrating tablet Take 1 tablet by mouth once daily as needed. cyanocobalamin (VITAMIN B-12) 1,000 mcg tab Take 1 tablet by mouth once daily. semaglutide (OZEMPIC) 1 mg/dose (4 mg/3 mL) pen Inject 1 mg subcutaneously one time a week. ezetimibe (ZETIA) 10 mg tablet Take 1 tablet by mouth once daily. benzonatate (TESSALON PERLES) 100 mg capsule Take 1 capsule by mouth three times daily as needed for cough. plecanatide (TRULANCE) 3 mg tablet Take 1 tablet (3 mg) by mouth once daily. ARIPiprazole (ABILIFY) 15 mg tablet Take 15 mg by mouth once daily. polyethylene glycol 3350 (MIRALAX) 17 gram/dose powder Take 17 g by mouth once daily. Dissolve dose in 4 - 8 ounces of liquid and take as directed. pantoprazole DR (PROTONIX) 40 mg tablet Take 1 tablet by mouth twice daily. Take on empty stomach, 1/2 hr before meal. topiramate (TOPAMAX) 100 mg tablet Take 1 tablet by mouth twice daily. tiZANidine (ZANAFLEX) 4 mg tablet TAKE 1 PILL UP TO 3 TIMES PER DAY NEEDED FOR PAINFUL MUSCLE SPASMS gabapentin (NEURONTIN) 400 mg capsule Take 1 capsule by mouth three times daily for 180 days. sucralfate (CARAFATE) 1 gram tablet Take 1 tablet by mouth daily at bedtime. rOPINIRole (REQUIP) 1 mg tablet Take one tab by mouth before bed. rosuvastatin (CRESTOR) 40 mg tablet Take 1 tablet by mouth daily at bedtime. metFORMIN ER (GLUCOPHAGE XR) 500 mg 24 hr tablet Take 1 tablet by mouth daily with breakfast. ergocalciferol 50,000 unit capsule (VITAMIN D2, DRISDOL) Take one capsule twice a week (Fri and ) amitriptyline (ELAVIL) 25 mg tablet Take 1 tablet by mouth daily at bedtime. ondansetron orally disintegrating (ZOFRAN ODT) 4 mg disintegrating tablet Take 1 tablet by mouth every 8 hours as needed for nausea/vomiting. levothyroxine (SYNTHROID) 137 mcg tablet Take one daily Fri-Fri and two on Friday. Fenofibrate (LOFIBRA) 54 mg tablet Take 1 tablet by mouth once daily. aspirin, enteric coated (ASPIRIN, ENTERIC COATED) 81 mg EC tablet Take 81 mg by mouth once daily. famotidine (PEPCID) 40 mg tablet Take 1 tablet by mouth daily before dinner. CPAP Mask fitting and 30 day download for autopap 10 -20 cm H2O & formal mask refitting for medical necessity & schedule with the RT, chin strap, head gear, humidity, heated tubing (SACHI), lifetime supplies. G47.33 JORDAN albuterol HFA (PROVENTIL HFA, VENTOLIN HFA) 90 mcg/actuation inhaler Inhale 2 Puffs as instructed every 4 hours as needed for wheezing/shortness of breath. blood sugar diagnostic (BLOOD GLUCOSE TEST) test strip Test blood sugar(s) 1 times daily. Dx: Other DM Code R73.03 Insulin: No Lancets lancets Test blood sugar(s) 1 times daily. Dx: Other DM Code R73.03 Insulin: No lactase (LACTAID) 3,000 unit tablet Take 1 tablet by mouth three times daily with meals. acetaminophen (TYLENOL ARTHRITIS ORAL) Take 650 mg by mouth every 8 hours as needed. [place]-3 Fatty Acids 100 mg chew [place]-3 Fatty Acids [place]-3 Fatty Acids Active 2000 MG DAILY November 21, 2016 10:19am 11-21-2016 [facility] ([id number]) Lactobacillus acidophilus (FLORAJEN) 460 mg (20 billion cell) cap Take 1 capsule by mouth once daily. COMPOUNDED PRESCRIPTION Wheeled rolator walker with ahnd breaks and seat, # 1, Dx:M19.071, Z91.071 DULoxetine (CYMBALTA) 30 mg capsule Take 1 capsule by mouth once daily. [facility] I have reviewed the Health Status Assessment responses and discussed these with the patient: yes Gogo Lowery APRN.DATABASE SECURITY EXPERT HEADACHE SCORES: Headache Questions 10/09/2022 01/07/2023 01/15/2023 ID Migraine Screener: - - - ER visits in the last year: - - - ER visits since last office visit: 0 0 - Hospital stays in the last year: - - - Hospital stays since last office visit 0 0 - Limited ADLs in the last month: 7 5 - Days missed from work or school in the last month: 7 5 - Days headache pain free in the last month: 15 25 - Days per month with ALL of the following symptoms - decreased productivity, light sensitivity and nausea: 7 5 - Initial improvement of headache after botox injection at last visit: Not applicable, I did not have a botox injection at my last visit Not applicable, I did not have a botox injection at my last visit - PRN medication usage in the last month: 5 5 - Patient impression of improvement since last visit: Minimally improved Much improved Much improved HIT-6 10/09/2022 01/07/2023 01/15/2023 HIT-6 66 (Severe impact) 60 (Severe impact) 60 (Severe impact) ALISSA - 2/7 SCORES 07/03/2022 07/09/2022 10/09/2022 ALISSA-2 Score 0 0 0 ALISSA-7 Score 0 0 - Migraine Specific QOL - Higher scores indicate better HRQL 10/09/2022 01/07/2023 01/15/2023 Role Function-Restrictive Transformed Score (range: 0-100) 40 60 60 Role Function-Preventive Transformed Score (range: 0-100) 60 60 60 Emotional Function Transformed Score (range: 0-100) 73.33 60 60 PHQ-9 01/07/2023 01/07/2023 01/15/2023 Score 6 6 6 Studies to Review: No Labs to Review: Yes Results Only on 01/20/2023 Component Date Value Master Dyer 01/20/2023 Value:Provider MONFARED your patient CHANDA HAQ has been assigned their [facility] program. The date to complete this order is 02-19-2023 The [facility] program is: UPPER GI ENDOSCOPY (EGD) The patient access code to view the [facility] program is: [id number] To view the [facility] program go to: [email or web address] Appointment on 12/27/2022 Component Date Value Glucose 12/27/2022 93 BUN 12/27/2022 12 Creatinine 12/27/2022 0.96 Sodium 12/27/2022 138 Potassium 12/27/2022 4.0 Chloride 12/27/2022 106 (A) CO2 12/27/2022 24 Anion Gap 12/27/2022 8 (A) Calcium, Total 12/27/2022 9.3 Estimated Glomerular Nahun* 12/27/2022 66 Magnesium 12/27/2022 2.0 Lipase 12/27/2022 47 New Health Issues: Yes, plans gastric bypass New Family History: No Review of Systems: Review of system: unchanged from the previous visit (sleep patterns, mood, energy, appetite, stress, exercising). Physical Examination: Vital Signs: There were no vitals taken for this visit. General: well appearing, in no acute distress, alert Pain Behaviors: no pain behaviors observed Neurological: Mental Status: Alert and oriented to person, place and time. Affect is normal. Speech is spontaneous and fluent without dysarthria. Short and longterm memory, cognition and general fund of knowledge are good. Attention span and concentration are excellent. HEENT: Head is normocephalic and features were symmetric. Musculoskeletal: Patient able to sit up right in chair for entirety of visit. Cranial Nerves: III, IV, -EOMI: full. VII-face is symmetric without evidence of weakness. VIII-hearing intact. IMPRESSION: Chanda Haq is a 62 year old year old female, with a history of JORDAN, LTKRA, expansile skull mass, bipolar 1 disorder, and migraines. Her neurological examination is essentially normal at this visit. Headaches have improved with increasing Topamax to 100 bid, with slight but tolerable increase in ae of drowsiness. She should not be using triptans given her numerous cardiovascular risk factors (HTN, HLD, CAD, pre DM, hx of TIA) so we started Nurtec, which she is tolerating well with good effect. Stable on current regimen. Does not wish to make changes today. Discussed the importance of hydration while on Topamax. Labs are up to date. Refills provided. PLAN: - cont topamax 100 bid - cont elavil 25 daily - cont cymbalta 30 daily - cont nurtec +/- tizanidine prn - follow up in 6 months, sooner prn Prior Authorization: Chanda Haq has been previously approved for an Oral Calcitonin Gene-Related Peptide Receptor Antagonist (GEPANT) Rimegepant for the treatment of acute migraine. The patient has demonstrated the following: Provider attests patient has had a positive clinical response: Yes Patient will not use with another Oral Calcitonin Gene-Related Peptide Receptor Antagonist (GEPANT): Yes Patient's quality of life and ability to perform ADLs has improved: Yes We suggest the patient continue treatment with GEPANT Rimegepant. The following preventative medications have been tried for three or more months without benefit: The following abortive medications have been tried but require high frequency use which can lead to Medication Overuse Headache: HEADACHE MANAGEMENT: (You are the primary guardian of your health and headache. Keep track of all medications: This includes the reason for use, side effects and benefits.) MEDICATION TREATMENT: Medications to Start Taking rimegepant (NURTEC ODT) 75 mg disintegrating tablet Take 1 tablet by mouth once daily as needed. Discussed pathophysiology of headache. Discussed use of headache diary. Discussed triggers and lifestyle modifications including limiting caffeine consumption. Discussed treatment options, both abortive and preventive medications. Instructed patient about medications. Discussed potential adverse effects and drug interactions of medications. Discussed medication overuse headache and to limit use of analgesics to less than 2 doses per week. Discussed testing. Headache education was done. Discussed lifestyle modification including increased oral hydration, decreased caffeine, exercise and stress management. Discussed treatment options including preventive and acute medications, natural supplements, and infusion therapy. Discussed medication overuse headache and to limit use of acute treatments to no more than 2 days/week or 10 days/month. Discussed medication side effects, adverse reactions and drug interactions. Written educational materials and patient instructions outlining all of the above were given. RESEARCH: None at this time Follow-up: 6 months, PRN Level of Service: Virtual Visit 25 minutes Gogo Lowery APRN.MARY ELLEN Headache Section [facility] January 22, 2023 documented in this encounter [facility] 01-20-2023 Miscellaneous Notes Patient phones requesting refills as follows: Requested Prescriptions Pending Prescriptions Disp Refills promethazine (PHENERGAN) 25 mg tablet [Pharmacy Med Name: Promethazine HCl 25 MG Oral Tablet] 30 tablet 0 Sig: TAKE 1 TABLET BY MOUTH EVERY 8 HOURS NEEDED FOR NAUSEA Please review and advise. Enma Ramos Ma documented in this encounter [facility] 01-16-2023 Note HNO ID: [id number] Author: Shannan Dean RD Service: ? Author Type: Registered Dietitian Type: Progress Notes Filed: 01/16/2023 12:46 PM Note Text: [facility]: Medical Nutrition Therapy January 16, 2023 11:17 AM Dear Lizz Riggs PA-C, Your patient Chanda Haq was seen today for outpatient nutrition counseling. Thank you for the referral. NUTRITION CARE PLAN: Weight: NC-3.2 Involuntary weight loss related to nausea, vomiting, poor appetite as evidenced by BMI, patient interview and diet recall. NUTRITION INTERVENTION: Patient expressed a desire to make healthy lifestyle changes and improve her diet. Patient reported she has had gradual weight loss over the last year. She reported longterm problems with GERD and a hiatal hernia as well as stomach ulcers. She was recently diagnosed with gastroparesis as well. Also mentioned having a fatty liver for which she started ozempic to promote weight loss - potentially lead to gastroparesis. Ended up developing gastric diverticulum. She frequently gets nauseous and vomits, poor appetite, overall does not feel well. She has tried Boost drinks provided by her aide (she comes 3 days a week) and has tolerated them well. Pt started a mediterranean diet for her fatty liver but cannot tolerate a lot of veggies. Said she knows she is not drinking enough. Mentioned she was told some of her meds can cause delayed gastric emptying but cannot safely stop them. Diet history and recall reviewed with patient. Plan and goals were discussed and agreed upon with patient. Ref by GI for weight loss, has gastroparesis and experiencing N/V, trying to get Boost ordered through insurance - pt said she was told insurance will cover 100% when she talked to them just needs physician signature; saw general surgery 01/08 - plan for EGD/manometry before deciding on next steps in treatment/surgical options. 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 Drink Boost Plus twice a day (360 calories, 14 grams protein each) RD to check for insurance coverage through DME. Sip on fluids throughout the day in between meals. Limit fiber and fat intake. Try smoothies for more tolerable fruit intake. Utilize liquid diet as needed if having a flare up/worsening symptoms. Follow up as needed. PATIENT ASSESSMENT: Diagnosis: unintentional weight loss, gastroparesis Assessment: Lifestyle and Eating Habits: 2 meals most days Diet recall reveals inadequate intake Activity: Active (no regular exercise) ANTHROPOMETRICS: Resting Metabolic Rate: 1387 Height: Last 1 Encounter Ht Readings: Date: Ht: 01/08/2023 160 cm (5' 3 ) Wt: 86.5 kg (190 lb 9.6 oz) BMI: 33.76 kg/(m2) class 1 obesity Last Wt 01/16/23 : 87.5 kg (193 lb) 01/08/23 : 86.5 kg (190 lb 9.6 oz) 12/10/22 : 90.3 kg (199 lb) 12/05/22 : 90.8 kg (200 lb 3.2 oz) 12/02/22 : 91.2 kg (201 lb) 10/16/22 : 93 kg (205 lb) 10/03/22 : 93.4 kg (205 lb 12.8 oz) 10/01/22 : 91.6 kg (202 lb) 07/23/22 : 91.6 kg (202 lb) 07/16/22 : 86.6 kg (191 lb) Weight has decreased by 4.3 kg over 1 months representing 4.7 % weight change potentially clinically significant but does not meet criteria to support a malnutrition diagnosis ALLERGIES: Ditropan [Oxybutynin Chloride], Benztropine, Oxybutynin, Oxycodone, Cogentin [Benztropine Mesylate], Depakote [Divalproex Sodium], Flagyl [Metronidazole Hcl], Ibuprofen, Nexium [Esomeprazole Magnesium], Percocet [Oxycodone-Acetaminophen], and Tylenol [Acetaminophen] PAST MEDICAL HISTORY Diagnosis Date Acquired hypothyroidism 08/22/2015 ACUTE GASTRITIS W/O HEMORRHAGE 02/05/2006 Anxiety and depression 10/05/2020 Arthritis 05/18/2020 Arthritis of lumbar spine 03/05/2022 Mod Arthritis of right foot 09/02/2018 At high risk for falls 09/02/2018 Backache, unspecified 01/11/2013 Bilateral carotid artery stenosis 09/25/202009/2020 20-40% bilaterally Bipolar I disorder (HCC) (more content not included)... [facility] 01-16-2023 Note Education (AKNUTR) ---- HAQCHANDA BALLARD ([id number]) 1960 F Date Time Provider Department 01/16/23 11:00 AM SHANNAN DEAN Reason for Visit: Nutrition Counseling [76] Cmt: Abnormal weight loss Visit Diagnosis:Abnormal weight loss [R63.4] Order(s):CONSULT TO NUTRITION THERAPY [9020] Order #: [id number]: 1 During your visit today, we recorded the following information about you: Weight 87.5 kg Allergies As of Date: 01/16/2023 Noted Allergy Reaction DITROPAN (OXYBUTYNIN CHLORIDE) 11/21/2014 14 - Other: See Comments Comments: Nausea,vomiting BENZTROPINE 06/23/2022 14 - Other: See Comments 16 - Unknown OXYBUTYNIN 06/23/2022 14 - Other: See Comments OXYCODONE 06/23/2022 8 - GI Upset 16 - Unknown COGENTIN (BENZTROPINE MESYLATE) 03/02/2019 14 - Other: See Comments Comments: Blurred vision DEPAKOTE (DIVALPROEX SODIUM) 09/01/2019 8 - GI Upset FLAGYL (METRONIDAZOLE HCL) 12/03/2017 8 - GI Upset Comments: Nausea and vomiting IBUPROFEN 05/29/2020 8 - GI Upset NEXIUM (ESOMEPRAZOLE MAGNESIUM) 03/17/2015 16 - Unknown PERCOCET (OXYCODONE-ACETAMINOPHEN)05/13/2016 14 - Other: See Comments Comments: Nausea, RDZ, eye swelling TYLENOL (ACETAMINOPHEN) 11/27/2020 8 - GI Upset Comments: diarrhea with high doses Date Reviewed: 01/08/2023 Reviewed by: Abel Gilman Ma - Fully Assessed Prescriptions as of 01/16/2023 - cyanocobalamin (VITAMIN B-12) 1,000 mcg tab Take 1 tablet by mouth once daily. - promethazine (PHENERGAN) 25 mg tablet Take 1 tablet by mouth every 8 hours as needed (for nausea). - semaglutide (OZEMPIC) 1 mg/dose (4 mg/3 mL) pen Inject 1 mg subcutaneously one time a week. - ezetimibe (ZETIA) 10 mg tablet Take 1 tablet by mouth once daily. - benzonatate (TESSALON PERLES) 100 mg capsule Take 1 capsule by mouth three times daily as needed for cough. - plecanatide (TRULANCE) 3 mg tablet Take 1 tablet (3 mg) by mouth once daily. - ARIPiprazole (ABILIFY) 15 mg tablet Take 15 mg by mouth once daily. - polyethylene glycol 3350 (MIRALAX) 17 gram/dose powder Take 17 g by mouth once daily. Dissolve dose in 4 - 8 ounces of liquid and take as directed. - pantoprazole DR (PROTONIX) 40 mg tablet Take 1 tablet by mouth twice daily. Take on empty stomach, 1/2 hr before meal. - topiramate (TOPAMAX) 100 mg tablet Take 1 tablet by mouth twice daily. - rimegepant (NURTEC ODT) 75 mg disintegrating tablet Take 1 tablet by mouth once daily as needed. - tiZANidine (ZANAFLEX) 4 mg tablet TAKE 1 PILL UP TO 3 TIMES PER DAY NEEDED FOR PAINFUL MUSCLE SPASMS - gabapentin (NEURONTIN) 400 mg capsule Take 1 capsule by mouth three times daily for 180 days. - sucralfate (CARAFATE) 1 gram tablet Take 1 tablet by mouth daily at bedtime. - rOPINIRole (REQUIP) 1 mg tablet Take one tab by mouth before bed. - rosuvastatin (CRESTOR) 40 mg tablet Take 1 tablet by mouth daily at bedtime. - metFORMIN ER (GLUCOPHAGE XR) 500 mg 24 hr tablet Take 1 tablet by mouth daily with breakfast. - ergocalciferol 50,000 unit capsule (VITAMIN D2, DRISDOL) Take one capsule twice a week (Fri and ) - amitriptyline (ELAVIL) 25 mg tablet Take 1 tablet by mouth daily at bedtime. - ondansetron orally disintegrating (ZOFRAN ODT) 4 mg disintegrating tablet Take 1 tablet by mouth every 8 hours as needed for nausea/vomiting. - levothyroxine (SYNTHROID) 137 mcg tablet Take one daily and two on Friday. - Fenofibrate (LOFIBRA) 54 mg tablet Take 1 tablet by mouth once daily. - aspirin, enteric coated (ASPIRIN, ENTERIC COATED) 81 mg EC tablet Take 81 mg by mouth once daily. - famotidine (PEPCID) 40 mg tablet Take 1 tablet by mouth daily before dinner. - CPAP Mask fitting and 30 day download for autopap 10 -20 cm H2O AND formal mask refitting for medical necessity AND schedule with the RT, chin strap, head gear, humidity, heated tubing (SACHI), lifetime supplies. G47.33 JORDAN - albuterol HFA (PROVENTIL HFA, VENTOLIN HFA) 90 mcg/actuation inhaler Inhale 2 Puffs as instructed every 4 hours as needed for wheezing/shortness of breath. - blood sugar diagnostic (BLOOD GLUCOSE TEST) test strip Test blood sugar(s) 1 times daily. Dx: Other DM Code R73.03 Insulin: No - Lancets lancets Test blood sugar(s) 1 times daily. Dx: Other DM Code R73.03 Insulin: No - lactase (LACTAID) 3,000 unit tablet Take 1 tablet by mouth three times daily with meals. - acetaminophen (TYLENOL ARTHRITIS ORAL) Take 650 mg by mouth every 8 hours as needed. - [place]-3 Fatty Acids 100 mg chew [place]-3 Fatty Acids [place]-3 Fatty Acids Active 2000 MG DAILY November 21, 2016 10:19am 11-21-2016 [facility] ([id number]) - Lactobacillus acidophilus (FLORAJEN) 460 mg (20 billion cell) cap Take 1 capsule by mouth once daily. - COMPOUNDED PRESCRIPTION Wheeled rolator walker with ahnd breaks and seat, # 1, Dx:M19.071, Z91.071 - DULoxetin (more content not included)... [facility] 01-16-2023 History of Present illness Narrative [facility]: Medical Nutrition Therapy January 16, 2023 11:17 AM Dear Lizz Riggs PA-C, Your patient Chanda Haq was seen today for outpatient nutrition counseling. Thank you for the referral. NUTRITION CARE PLAN: Weight: NC-3.2 Involuntary weight loss related to nausea, vomiting, poor appetite as evidenced by BMI, patient interview and diet recall. NUTRITION INTERVENTION: Patient expressed a desire to make healthy lifestyle changes and improve her diet. Patient reported she has had gradual weight loss over the last year. She reported longterm problems with GERD and a hiatal hernia as well as stomach ulcers. She was recently diagnosed with gastroparesis as well. Also mentioned having a fatty liver for which she started ozempic to promote weight loss - potentially lead to gastroparesis. Ended up developing gastric diverticulum. She frequently gets nauseous and vomits, poor appetite, overall does not feel well. She has tried Boost drinks provided by her aide (she comes 3 days a week) and has tolerated them well. Pt started a mediterranean diet for her fatty liver but cannot tolerate a lot of veggies. Said she knows she is not drinking enough. Mentioned she was told some of her meds can cause delayed gastric emptying but cannot safely stop them. Diet history and recall reviewed with patient. Plan and goals were discussed and agreed upon with patient. Ref by GI for weight loss, has gastroparesis and experiencing N/V, trying to get Boost ordered through insurance - pt said she was told insurance will cover 100% when she talked to them just needs physician signature; saw general surgery 01/08 - plan for EGD/manometry before deciding on next steps in treatment/surgical options. 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 Drink Boost Plus twice a day (360 calories, 14 grams protein each) RD to check for insurance coverage through DME. Sip on fluids throughout the day in between meals. Limit fiber and fat intake. Try smoothies for more tolerable fruit intake. Utilize liquid diet as needed if having a flare up/worsening symptoms. Follow up as needed. PATIENT ASSESSMENT: Diagnosis: unintentional weight loss, gastroparesis Assessment: Lifestyle and Eating Habits: 2 meals most days Diet recall reveals inadequate intake Activity: Active (no regular exercise) ANTHROPOMETRICS: Resting Metabolic Rate: 1387 Height: Last 1 Encounter Ht Readings: Date: Ht: 01/08/2023 160 cm (5' 3 ) Wt: 86.5 kg (190 lb 9.6 oz) BMI: 33.76 kg/(m^2) class 1 obesity Last Wt 01/16/23 : 87.5 kg (193 lb) 01/08/23 : 86.5 kg (190 lb 9.6 oz) 12/10/22 : 90.3 kg (199 lb) 12/05/22 : 90.8 kg (200 lb 3.2 oz) 12/02/22 : 91.2 kg (201 lb) 10/16/22 : 93 kg (205 lb) 10/03/22 : 93.4 kg (205 lb 12.8 oz) 10/01/22 : 91.6 kg (202 lb) 07/23/22 : 91.6 kg (202 lb) 07/16/22 : 86.6 kg (191 lb) Weight has decreased by 4.3 kg over 1 months representing 4.7 % weight change potentially clinically significant but does not meet criteria to support a malnutrition diagnosis ALLERGIES: Ditropan [Oxybutynin Chloride], Benztropine, Oxybutynin, Oxycodone, Cogentin [Benztropine Mesylate], Depakote [Divalproex Sodium], Flagyl [Metronidazole Hcl], Ibuprofen, Nexium [Esomeprazole Magnesium], Percocet [Oxycodone-Acetaminophen], and Tylenol [Acetaminophen] PAST MEDICAL HISTORY Diagnosis Date Acquired hypothyroidism 08/22/2015 ACUTE GASTRITIS W/O HEMORRHAGE 02/05/2006 Anxiety and depression 10/05/2020 Arthritis 05/18/2020 Arthritis of lumbar spine 03/05/2022 Mod Arthritis of right foot 09/02/2018 At high risk for falls 09/02/2018 Backache, unspecified 01/11/2013 Bilateral carotid artery stenosis 09/25/202009/2020 20-40% bilaterally Bipolar I disorder (HCC) 12/20/2005 Seeds Stinger at [facility] Cervical disc disorder with radiculopathy 09/27/2021 Cervical radiculopathy 09/19/2021 Cervical spondylosis 09/19/2021 Seeing pain management Cervical spondylosis without myelopathy 09/27/2021 Cervical stenosis of spinal canal 09/19/2021 Chronic pain of left knee 06/19/2019 Class 1 obesity due to excess calories without serious comorbidity with body mass index (BMI) of 33.0 to 33.9 in adult 03/03/2018 Current use of proton pump inhibitor 03/03/2018 Diaphragmatic hernia without mention of obstruction or gangrene 02/05/2006 Elevated hemoglobin A1c 06/29/2018 Encounter for screening mammogram for breast cancer 03/05/2019 Ex-smoker 08/22/2015 Started at age 14 and has smoked up to 1/2 a PPD, quit 12/2017 External hemorrhoids without mention of complication Gastroesophageal reflux disease with esophagitis 08/22/2015 Hearing loss Hearing aids in both ears. History of transient ischemic attack (TIA) 11/05/2019 Incontinence 02/20/[address] Jordan Irritable bowel syndrome with constipation 03/03/2018 Lactose intolerance 03/05/2019 Lung nodules 12/11/2017 CT 12/11/[address] 05/2018 stable needs repeat in 2 yrs Medicare annual wellness visit, subsequent 03/03/2018 Medicare Part B: 06/17/2001 last done: 03/05/2019 Migraine without aura and without status migrainosus, not intractable 05/22/2016 Mixed hyperlipidemia 08/22/2015 JORDAN (obstructive sleep apnea) 09/02/2018 DME DASCO Osteopenia of lumbar spine 11/27/2020 Borderline on DXA 11/2020 Other constipation 07/21/2019 Overactive bladder 05/30/2015 Primary insomnia 07/30/2018 Primary osteoarthritis of left knee 11/05/2019 RLS (restless legs syndrome) 06/04/2019 S/P total knee arthroplasty, left 10/18/2020 Smoker 08/22/2015 Started at age 14 and has smoked up to 1/2 a PPD, quit 12/2017 Thoracic arthritis 03/05/2022 Mild Vitamin D deficiency 01/25/2020 Medications: Current Outpatient Medications on File Prior to Visit Medication Sig cyanocobalamin (VITAMIN B-12) 1,000 mcg tab Take 1 tablet by mouth once daily. promethazine (PHENERGAN) 25 mg tablet Take 1 tablet by mouth every 8 hours as needed (for nausea). semaglutide (OZEMPIC) 1 mg/dose (4 mg/3 mL) pen Inject 1 mg subcutaneously one time a week. ezetimibe (ZETIA) 10 mg tablet Take 1 tablet by mouth once daily. benzonatate (TESSALON PERLES) 100 mg capsule Take 1 capsule by mouth three times daily as needed for cough. plecanatide (TRULANCE) 3 mg tablet Take 1 tablet (3 mg) by mouth once daily. ARIPiprazole (ABILIFY) 15 mg tablet Take 15 mg by mouth once daily. polyethylene glycol 3350 (MIRALAX) 17 gram/dose powder Take 17 g by mouth once daily. Dissolve dose in 4 - 8 ounces of liquid and take as directed. pantoprazole DR (PROTONIX) 40 mg tablet Take 1 tablet by mouth twice daily. Take on empty stomach, 1/2 hr before meal. topiramate (TOPAMAX) 100 mg tablet Take 1 tablet by mouth twice daily. rimegepant (NURTEC ODT) 75 mg disintegrating tablet Take 1 tablet by mouth once daily as needed. tiZANidine (ZANAFLEX) 4 mg tablet TAKE 1 PILL UP TO 3 TIMES PER DAY NEEDED FOR PAINFUL MUSCLE SPASMS gabapentin (NEURONTIN) 400 mg capsule Take 1 capsule by mouth three times daily for 180 days. sucralfate (CARAFATE) 1 gram tablet Take 1 tablet by mouth daily at bedtime. rOPINIRole (REQUIP) 1 mg tablet Take one tab by mouth before bed. rosuvastatin (CRESTOR) 40 mg tablet Take 1 tablet by mouth daily at bedtime. metFORMIN ER (GLUCOPHAGE XR) 500 mg 24 hr tablet Take 1 tablet by mouth daily with breakfast. ergocalciferol 50,000 unit capsule (VITAMIN D2, DRISDOL) Take one capsule twice a week (Fri and ) amitriptyline (ELAVIL) 25 mg tablet Take 1 tablet by mouth daily at bedtime. ondansetron orally disintegrating (ZOFRAN ODT) 4 mg disintegrating tablet Take 1 tablet by mouth every 8 hours as needed for nausea/vomiting. levothyroxine (SYNTHROID) 137 mcg tablet Take one daily and two on Friday. Fenofibrate (LOFIBRA) 54 mg tablet Take 1 tablet by mouth once daily. aspirin, enteric coated (ASPIRIN, ENTERIC COATED) 81 mg EC tablet Take 81 mg by mouth once daily. famotidine (PEPCID) 40 mg tablet Take 1 tablet by mouth daily before dinner. CPAP Mask fitting and 30 day download for autopap 10 -20 cm H2O & formal mask refitting for medical necessity & schedule with the RT, chin strap, head gear, humidity, heated tubing (SACHI), lifetime supplies. G47.33 JORDAN albuterol HFA (PROVENTIL HFA, VENTOLIN HFA) 90 mcg/actuation inhaler Inhale 2 Puffs as instructed every 4 hours as needed for wheezing/shortness of breath. blood sugar diagnostic (BLOOD GLUCOSE TEST) test strip Test blood sugar(s) 1 times daily. Dx: Other DM Code R73.03 Insulin: No Lancets lancets Test blood sugar(s) 1 times daily. Dx: Other DM Code R73.03 Insulin: No lactase (LACTAID) 3,000 unit tablet Take 1 tablet by mouth three times daily with meals. acetaminophen (TYLENOL ARTHRITIS ORAL) Take 650 mg by mouth every 8 hours as needed. [place]-3 Fatty Acids 100 mg chew [place]-3 Fatty Acids [place]-3 Fatty Acids Active 2000 MG DAILY November 21, 2016 10:19am 11-21-2016 [facility] (75654) Lactobacillus acidophilus (FLORAJEN) 460 mg (20 billion cell) cap Take 1 capsule by mouth once daily. COMPOUNDED PRESCRIPTION Wheeled rolator walker with ahnd breaks and seat, # 1, Dx:M19.071, Z91.071 DULoxetine (CYMBALTA) 30 mg capsule Take 1 capsule by mouth once daily. [facility] No current facility-administered medications on file prior to visit. Lab Results Component Value Date GLUC 93 12/27/2022 GLUC 94 10/08/2021 BUN 12 12/27/2022 BUN 19 10/08/2021 CREAT 0.96 12/27/2022 CREAT 0.96 10/08/2021 NA 138 12/27/2022 NA 142 10/08/2021 K 4.0 12/27/2022 K 3.9 11/15/2021 CHLOR 106 12/27/2022 CHLOR 107 10/08/2021 CO2 24 12/27/2022 CO2 24 10/08/2021 ALB 4.6 09/07/2022 ALB 4.5 10/08/2021 CRP 0.5 10/01/2022 CRP 4.9 09/01/2019 HB 12.6 09/07/2022 HB 12.4 08/16/2021 HCT 41.1 09/07/2022 HCT 39.2 08/16/2021 WBC 5.55 09/07/2022 WBC 7.10 08/16/2021 MG 2.0 12/27/2022 MG 2.3 08/16/2021 Lab Results Component Value Date TG 143 09/07/2022 TG 153 08/16/2021 TG 146 04/08/2018 CHOL 127 09/07/2022 CHOL 147 08/16/2021 CHOL 161 04/08/2018 HDL 36 09/07/2022 HDL 45 08/16/2021 HDL 44 04/08/2018 VLDL 29 09/07/2022 VLDL 31 08/16/2021 VLDL 29 04/08/2018 LDL 62 09/07/2022 LDL 65 03/27/2022 LDL 71 08/16/2021 LDL 88 04/08/2018 NONHDL 91 09/07/2022 NONHDL 102 08/16/2021 Most recent A1C: Lab Results Component Value Date HBA1C 6.2 09/07/2022 HBA1C 6.1 03/27/2022 HBA1C 6.2 08/16/2021 HBA1C 6.2 05/17/2021 HBA1C 6.4 03/16/2021 Last 4 Encounter BP Readings: Date: BP: 01/08/2023 130/85 12/10/2022 87/53 12/10/2022 101/57 12/05/2022 118/78 READINESS TO LEARN Cognitive Ability: Alert and Oriented Motivation to Learn: Eager Family Support: Unable to assess - Family not present Diet Instruction and Counseling provided to: Patient Patient Learns Best by: Multiple Methods Factors Affecting Learning: None Physical Limitations Affecting Learning: None LEARNING RESPONSE Patient / Family Response: Verbalizes understanding of diet guidelines, meal plan and agreed goals. Method of Instruction: Individual instruction Written instruction - handouts Verbal instruction Supplemental Material Provided to Patient: Diet for Gastroparesis Likelihood to adhere to plan: Good FOLLOW-UP PLAN: Contact information given-patient instructed to call or email with any further questions/issues. Recommended patient follow-up as needed to review progress and keep patient accountable. Referring Provider: Lizz MYLES BILLING: Initial Assessment/15 minutes, 3 increment(s), 45 minutes For this patient visit I have spent approximately 60 minutes in outpatient nutrition counseling, documenting and coordinating care. SIGNATURE: Shannan Dean RD, LD PATIENT NAME: Chanda Haq DATE: January 16, 2023 TIME: 11:17 AM PAGER: [id number] documented in this encounter [facility] 01-13-2023 Miscellaneous Notes Copied and pasted reply to PCP for Epic documentation. Referred to Social Scientist. Dario Sylvester, I never received communication from this pt regarding PA for Boost and I did not tell her to contact PCP. I have copied and pasted my MAs thorough reply from 01/10/2023 regarding this matter for your review. As stated she mentions insurance provider so it is possible pt read this incorrectly and thought this meant PCP. Dario Armas. Check with your insurance provider and see who your durable medical provider is, then you will need to call that provider and ask if Boost is something they can provide. If yes, they can fax the order form to Dr. Domínguez or to us. Alternately, some of the medicare/medicaid plans are giving a couple hundred dollars every 3 months, like a voucher to use for something like that. I know my parents are getting that, with a book they order from, or cheapest chiu is most likely [employer] or [employer]. 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 Neither me nor my triad of JOSIAH's have seen her regarding this development. I informed her the PA needs to come from Gastro because you are seeing and addressing this issue along with having documentation. She told me she tried to get this done through gastro but was told it had to be her primary which is just not the case. There is no reason a specialist can't do prior authorizations for medications or procedures just like any other physician. I would appreciate it if you/gastro would address this issue for the patient. Patient states that she did talk with Gastro and her insurance and was told by both that the Boost needed to come from her PCP. Patient is unsure now what to do. Please advise? Left message for patient to contact office. Albania Reis MA The request for Boost should go through the provider that is working her up for the abdominal issues and this appears to be Gastro. Please see patient request.if willing to write rx for Boost will need sent to [facility] . Would use [facility] since easiest location. Patient is aware if and ok with [facility] nani if pcp willing to do. After [facility]ing rx and demographics [facility] they will let office know if PA needed normally they handle everything. Sarah Acosta Ma Patient reports she has been having severe stomach trouble for months. Can hardly keep anything down. Is losing weight. Vomits after eats, and when does eat, stomach becomes very bloated. Has been having tests done and one test found a large diverticulum on stomach. Will be having a pill tracer test done in the future, that requires her to only eat eggs and toast. States this is all on her chart. Reports she tried boost, and is able to keep it down. She talked to her insurance company, who tells her they will cover boost if pcp does a prior authorization on it. Prior Authorization Documentation Prior authorization requested for the following medication: Medication: Boost Provider: [employer] Name: [facility] Phone number: [phone] Patient ID number: [id number] documented in this encounter [facility] 01-08-2023 Note HNO ID: [id number] Author: Nida Perera MA Service: ? Author Type: Manufacture Specialist Type: Progress Notes Filed: 01/08/2023 12:52 PM Note Text: Manometry per Dr. Domínguez. Nida Perera MA [facility] 01-08-2023 History of Present illness Narrative Manometry per Dr. Domínguez. Nida Perera MA documented in this encounter [facility] 01-08-2023 Miscellaneous Notes Addended by: NIDA PERERA on: 01/08/2023 12:48 PM Modules accepted: Orders documented in this encounter [facility] 01-08-2023 Miscellaneous Notes Manometry scheduled for 02/19/2023 @ 12:00 pm followed by EGD/Ozuna at 1:00 pm. Prep/instructions given to patient at checkout. Nida Perera MA documented in this encounter [facility] 01-08-2023 Note HNO ID: [id number] Author: Jocelyn Pinto RN Service: ? Author Type: Registered Nurse Type: Progress Notes Filed: 01/08/2023 11:39 AM Note Text: Patient given written information about and EGD and biopsy and the prep instructions. Patient given written information about esophageal manometry and the prep instructions. Patient given written information about Ozuna pH probe and the prep instructions. Verbally discussed and reviewed the information with the patient. All of patient's questions were answered. Jocelyn Pinto RN January 08, 2023 9:48 AM [facility] 01-08-2023 Note HNO ID: [id number] Author: Abel Domínguez MD Service: ? Author Type: Physician Type: Progress Notes Filed: 01/08/2023 11:39 AM Note Text: [facility] [address] [place] [address] Abel Domínguez MD New Reflux H/P Referred by: Lizz HICKS History of Present Illness: Patient is a 62 year old female whose Body mass index is 33.76 kg/m?. who presents to general surgery clinic for initial consultation. The patient presents with chief complaint of GERD and gastroparesis. They report a history of heartburn, dysphagia, and regurgitation which have been ongoing for 3 +week however has had GERD issues for several years. Exacerbating factors: caffeine/coffee/carbonated beverages and acidic food. Alleviating factors: drinking, sleeping reclined and taking antacids. Additional symptoms: bloating, belching, cramping, diarrhea and constipation . Prior workup: EGD, colonoscopy and CT abdomen. Has been off of Ozempic for about 2-3 weeks now. Taking Topamax and metformin as well. Review of Systems: Review of Systems HENT: Negative. Eyes: Negative. Respiratory: Negative. Cardiovascular: Negative. Gastrointestinal: Positive for abdominal pain, constipation, diarrhea, heartburn, nausea and vomiting. Genitourinary: Negative. Musculoskeletal: Negative. Skin: Negative. Neurological: Negative. Endo/Heme/Allergies: Negative. Psychiatric/Behavioral: Negative. Past Medical History: PAST MEDICAL HISTORY Diagnosis Date Acquired hypothyroidism 08/22/2015 ACUTE GASTRITIS W/O HEMORRHAGE 02/05/2006 Anxiety and depression 10/05/2020 Arthritis 05/18/2020 Arthritis of lumbar spine 03/05/2022 Mod Arthritis of right foot 09/02/2018 At high risk for falls 09/02/2018 Backache, unspecified 01/11/2013 Bilateral carotid artery stenosis 09/25/202009/2020 20-40% bilaterally Bipolar I disorder (HCC) 12/20/2005 Seeds Stinger at [facility] Cervical disc disorder with radiculopathy 09/27/2021 Cervical radiculopathy 09/19/2021 Cervical spondylosis 09/19/2021 Seeing pain management Cervical spondylosis without myelopathy 09/27/2021 Cervical stenosis of spinal canal 09/19/2021 Chronic pain of left knee 06/19/2019 Class 1 obesity due to excess calories without serious comorbidity with body mass index (BMI) of 33.0 to 33.9 in adult 03/03/2018 Current use of proton pump inhibitor 03/03/2018 Diaphragmatic hernia without mention of obstruction or gangrene 02/05/2006 Elevated hemoglobin A1c 06/29/2018 Encounter for screening mammogram for breast cancer 03/05/2019 Ex-smoker 08/22/2015 Started at age 14 and has smoked up to 1/2 a PPD, quit 12/2017 External hemorrhoids without mention of complication Gastroesophageal reflux disease with esophagitis 08/22/2015 Hearing loss Hearing aids in both ears. History of transient ischemic attack (TIA) 11/05/2019 Incontinence 02/20/[address] Jordan Irritable bowel syndrome with constipation 03/03/2018 Lactose intolerance 03/05/2019 Lung nodules 12/11/2017 CT 12/11/[address] 05/2018 stable needs repeat in 2 yrs Medicare annual wellness visit, subsequent 03/03/2018 Medicare Part B: 06/17/2001 last done: 03/05/2019 Migraine without aura and without status migrainosus, not intractable 05/22/2016 Mixed hyperlipidemia 08/22/2015 JORDAN (obstructive sleep apnea) 09/02/2018 DME DASCO Osteopenia of lumbar spine 11/27/2020 Borderline on DXA 11/2020 Other constipation 07/21/2019 Overactive bladder 05/30/2015 Primary insomnia 07/30/2018 Primary osteoarthritis of left knee 11/05/2019 RLS (restless legs syndrome) 06/04/2019 S/P total knee arthroplasty, left 10/18/2020 Smoker 08/22/2015 Started at age 14 and has smoked up to 1/2 a PPD, quit 12/2017 Thoracic arthritis 03/05/2022 Mild Vitamin D deficiency 01/25/2020 Past Surgical History: PAST SURGICAL HISTORY Procedure Laterality Date ARTHROSCOPY KNEE DIAGNOSTIC W/WO SYNOVIAL BX SPX Arthroscopy, knee, Left ARTHRS KNE SURG W/MENISCECTOMY MED/LAT W/SHVG Left 12/01/2019 COLONOSCOPY 08/11/2019 one polyp, repeat 10 yrs COLONOSCOPY 12/10/2022 Hyperplastic rectal polyp COLONOSCOPY FLX DX W/COLLJ SPEC WHEN PFRMD 02/28/2009 COLONOSCOPY FLX DX W/COLLJ SPEC WHEN PFRMD 02/04/2018 Colonoscopy EGD 03/24/2018 Dr. Garcia reported as normal. Neg for Hpylori and celiac. EGD W/O BRSH SPEC VARICIES INJ 12/10/2022 Mild nonspecific inflammation in stomach ESOPHAGOGASTRODUODENOSCOPY TRANSORAL DIAGNOSTIC 02/05/2006 EGD ESOPHAGOGASTRODUODENOSCOPY TRANSORAL DIAGNOSTIC 12/21/2014 EGD ESOPHAGOGASTRODUODENOSCOPY TRANSORAL DIAGNOSTIC 03/29/2015 EGD EXC/DSTRJ LINGUAL TONSIL ANY METHOD SPX remote FECAL OCCULT BLOOD TEST 12/19/2016 negative PAST SURGICAL HISTORY OF 10/05/2015 TOT monarc sling PAST SURGICAL HISTORY OF 10/05/2015 Cystourethroscopy PAST SURGICAL HISTORY OF Left 05/03/2016 ulnar nerve decompression STRESS TEST (more content not included)... [facility] 01-08-2023 History of Present illness Narrative Patient given written information about and EGD and biopsy and the prep instructions. Patient given written information about esophageal manometry and the prep instructions. Patient given written information about Ozuna pH probe and the prep instructions. Verbally discussed and reviewed the information with the patient. All of patient's questions were answered. Jocelyn Pinto RN January 08, 2023 9:48 AM Images from the original note were not included. [facility] [address] [place] [address] Abel Domínguez MD New Reflux H/P Referred by: Lizz HICKS History of Present Illness: Patient is a 62 year old female whose Body mass index is 33.76 kg/m . who presents to general surgery clinic for initial consultation. The patient presents with chief complaint of GERD and gastroparesis. They report a history of heartburn, dysphagia, and regurgitation which have been ongoing for 3 +week however has had GERD issues for several years. Exacerbating factors: caffeine/coffee/carbonated beverages and acidic food. Alleviating factors: drinking, sleeping reclined and taking antacids. Additional symptoms: bloating, belching, cramping, diarrhea and constipation . Prior workup: EGD, colonoscopy and CT abdomen. Has been off of Ozempic for about 2-3 weeks now. Taking Topamax and metformin as well. Review of Systems: Review of Systems HENT: Negative. Eyes: Negative. Respiratory: Negative. Cardiovascular: Negative. Gastrointestinal: Positive for abdominal pain, constipation, diarrhea, heartburn, nausea and vomiting. Genitourinary: Negative. Musculoskeletal: Negative. Skin: Negative. Neurological: Negative. Endo/Heme/Allergies: Negative. Psychiatric/Behavioral: Negative. Past Medical History: PAST MEDICAL HISTORY Diagnosis Date Acquired hypothyroidism 08/22/2015 ACUTE GASTRITIS W/O HEMORRHAGE 02/05/2006 Anxiety and depression 10/05/2020 Arthritis 05/18/2020 Arthritis of lumbar spine 03/05/2022 Mod Arthritis of right foot 09/02/2018 At high risk for falls 09/02/2018 Backache, unspecified 01/11/2013 Bilateral carotid artery stenosis 09/25/202009/2020 20-40% bilaterally Bipolar I disorder (HCC) 12/20/2005 [facility] Cervical disc disorder with radiculopathy 09/27/2021 Cervical radiculopathy 09/19/2021 Cervical spondylosis 09/19/2021 Seeing pain management Cervical spondylosis without myelopathy 09/27/2021 Cervical stenosis of spinal canal 09/19/2021 Chronic pain of left knee 06/19/2019 Class 1 obesity due to excess calories without serious comorbidity with body mass index (BMI) of 33.0 to 33.9 in adult 03/03/2018 Current use of proton pump inhibitor 03/03/2018 Diaphragmatic hernia without mention of obstruction or gangrene 02/05/2006 Elevated hemoglobin A1c 06/29/2018 Encounter for screening mammogram for breast cancer 03/05/2019 Ex-smoker 08/22/2015 Started at age 14 and has smoked up to 1/2 a PPD, quit 12/2017 External hemorrhoids without mention of complication Gastroesophageal reflux disease with esophagitis 08/22/2015 Hearing loss Hearing aids in both ears. History of transient ischemic attack (TIA) 11/05/2019 Incontinence 02/20/[address] Jordan Irritable bowel syndrome with constipation 03/03/2018 Lactose intolerance 03/05/2019 Lung nodules 12/11/2017 CT 12/11/[address] 05/2018 stable needs repeat in 2 yrs Medicare annual wellness visit, subsequent 03/03/2018 Medicare Part B: 06/17/2001 last done: 03/05/2019 Migraine without aura and without status migrainosus, not intractable 05/22/2016 Mixed hyperlipidemia 08/22/2015 JORDAN (obstructive sleep apnea) 09/02/2018 DME DASCO Osteopenia of lumbar spine 11/27/2020 Borderline on DXA 11/2020 Other constipation 07/21/2019 Overactive bladder 05/30/2015 Primary insomnia 07/30/2018 Primary osteoarthritis of left knee 11/05/2019 RLS (restless legs syndrome) 06/04/2019 S/P total knee arthroplasty, left 10/18/2020 Smoker 08/22/2015 Started at age 14 and has smoked up to 1/2 a PPD, quit 12/2017 Thoracic arthritis 03/05/2022 Mild Vitamin D deficiency 01/25/2020 Past Surgical History: PAST SURGICAL HISTORY Procedure Laterality Date ARTHROSCOPY KNEE DIAGNOSTIC W/WO SYNOVIAL BX SPX Arthroscopy, knee, Left ARTHRS KNE SURG W/MENISCECTOMY MED/LAT W/SHVG Left 12/01/2019 COLONOSCOPY 08/11/2019 one polyp, repeat 10 yrs COLONOSCOPY 12/10/2022 Hyperplastic rectal polyp COLONOSCOPY FLX DX W/COLLJ SPEC WHEN PFRMD 02/28/2009 COLONOSCOPY FLX DX W/COLLJ SPEC WHEN PFRMD 02/04/2018 Colonoscopy EGD 03/24/2018 Dr. Garcia reported as normal. Neg for Hpylori and celiac. EGD W/O [facility] SPEC VARICIES INJ 12/10/2022 Mild nonspecific inflammation in stomach ESOPHAGOGASTRODUODENOSCOPY TRANSORAL DIAGNOSTIC 02/05/2006 EGD ESOPHAGOGASTRODUODENOSCOPY TRANSORAL DIAGNOSTIC 12/21/2014 EGD ESOPHAGOGASTRODUODENOSCOPY TRANSORAL DIAGNOSTIC 03/29/2015 EGD EXC/DSTRJ LINGUAL TONSIL ANY METHOD SPX remote FECAL OCCULT BLOOD TEST 12/19/2016 negative PAST SURGICAL HISTORY OF 10/05/2015 TOT monarc sling PAST SURGICAL HISTORY OF 10/05/2015 Cystourethroscopy PAST SURGICAL HISTORY OF Left 05/03/2016 ulnar nerve decompression STRESS TEST 12/10/2016 normal TOTAL KNEE REPLACEMENT Left 10/18/2020 Left Total knee arthrosplasty Current Medications: Current Outpatient Medications Medication Sig cyanocobalamin (VITAMIN B-12) 1,000 mcg tab Take 1 tablet by mouth once daily. promethazine (PHENERGAN) 25 mg tablet Take 1 tablet by mouth every 8 hours as needed (for nausea). semaglutide (OZEMPIC) 1 mg/dose (4 mg/3 mL) pen Inject 1 mg subcutaneously one time a week. ezetimibe (ZETIA) 10 mg tablet Take 1 tablet by mouth once daily. benzonatate (TESSALON PERLES) 100 mg capsule Take 1 capsule by mouth three times daily as needed for cough. plecanatide (TRULANCE) 3 mg tablet Take 1 tablet (3 mg) by mouth once daily. ARIPiprazole (ABILIFY) 15 mg tablet Take 15 mg by mouth once daily. polyethylene glycol 3350 (MIRALAX) 17 gram/dose powder Take 17 g by mouth once daily. Dissolve dose in 4 - 8 ounces of liquid and take as directed. pantoprazole DR (PROTONIX) 40 mg tablet Take 1 tablet by mouth twice daily. Take on empty stomach, 1/2 hr before meal. topiramate (TOPAMAX) 100 mg tablet Take 1 tablet by mouth twice daily. rimegepant (NURTEC ODT) 75 mg disintegrating tablet Take 1 tablet by mouth once daily as needed. tiZANidine (ZANAFLEX) 4 mg tablet TAKE 1 PILL UP TO 3 TIMES PER DAY NEEDED FOR PAINFUL MUSCLE SPASMS gabapentin (NEURONTIN) 400 mg capsule Take 1 capsule by mouth three times daily for 180 days. sucralfate (CARAFATE) 1 gram tablet Take 1 tablet by mouth daily at bedtime. rOPINIRole (REQUIP) 1 mg tablet Take one tab by mouth before bed. rosuvastatin (CRESTOR) 40 mg tablet Take 1 tablet by mouth daily at bedtime. metFORMIN ER (GLUCOPHAGE XR) 500 mg 24 hr tablet Take 1 tablet by mouth daily with breakfast. ergocalciferol 50,000 unit capsule (VITAMIN D2, DRISDOL) Take one capsule twice a week (Fri and ) amitriptyline (ELAVIL) 25 mg tablet Take 1 tablet by mouth daily at bedtime. ondansetron orally disintegrating (ZOFRAN ODT) 4 mg disintegrating tablet Take 1 tablet by mouth every 8 hours as needed for nausea/vomiting. levothyroxine (SYNTHROID) 137 mcg tablet Take one daily Fri-Fri and two on Friday. Fenofibrate (LOFIBRA) 54 mg tablet Take 1 tablet by mouth once daily. aspirin, enteric coated (ASPIRIN, ENTERIC COATED) 81 mg EC tablet Take 81 mg by mouth once daily. famotidine (PEPCID) 40 mg tablet Take 1 tablet by mouth daily before dinner. CPAP Mask fitting and 30 day download for autopap 10 -20 cm H2O & formal mask refitting for medical necessity & schedule with the RT, chin strap, head gear, humidity, heated tubing (SACHI), lifetime supplies. G47.33 JORDAN albuterol HFA (PROVENTIL HFA, VENTOLIN HFA) 90 mcg/actuation inhaler Inhale 2 Puffs as instructed every 4 hours as needed for wheezing/shortness of breath. blood sugar diagnostic (BLOOD GLUCOSE TEST) test strip Test blood sugar(s) 1 times daily. Dx: Other DM Code R73.03 Insulin: No Lancets lancets Test blood sugar(s) 1 times daily. Dx: Other DM Code R73.03 Insulin: No lactase (LACTAID) 3,000 unit tablet Take 1 tablet by mouth three times daily with meals. acetaminophen (TYLENOL ARTHRITIS ORAL) Take 650 mg by mouth every 8 hours as needed. [place]-3 Fatty Acids 100 mg chew [place]-3 Fatty Acids [place]-3 Fatty Acids Active 2000 MG DAILY November 21, 2016 10:19am 11-21-2016 [facility] ([id number]) Lactobacillus acidophilus (FLORAJEN) 460 mg (20 billion cell) cap Take 1 capsule by mouth once daily. COMPOUNDED PRESCRIPTION Wheeled rolator walker with ahnd breaks and seat, # 1, Dx:M19.071, Z91.071 DULoxetine (CYMBALTA) 30 mg capsule Take 1 capsule by mouth once daily. [facility] No current facility-administered medications for this visit. Allergies: Ditropan [Oxybutynin Chloride], Benztropine, Oxybutynin, Oxycodone, Cogentin [Benztropine Mesylate], Depakote [Divalproex Sodium], Flagyl [Metronidazole Hcl], Ibuprofen, Nexium [Esomeprazole Magnesium], Percocet [Oxycodone-Acetaminophen], and Tylenol [Acetaminophen] Family Medical History: FAMILY HISTORY Problem Relation Age of Onset Cancer Mother Hysterectomy Alcohol/Drug Father Alcoholic other (Leukemia) Sister shortly after Heart Attack Brother x 2 Diabetes Brother Heart Maternal Grandmother Hearing Loss Maternal Grandmother Headache Maternal Grandmother Diabetes Maternal Grandmother Stroke Maternal Grandmother Heart Maternal Grandfather Diabetes Maternal Grandfather No Known Problems Paternal Grandmother No Known Problems Paternal Grandfather Coronary Artery Disease Son Hyperlipidemia Son Hypertension Son Hyperlipidemia Son No Known Problems Son Colon Cancer No Family History Social History: Social History Tobacco Use Smoking status: Former Types: Cigarettes Quit date: 01/07/2018 Years since quittin.0 Smokeless tobacco: Never Tobacco comments: used welbutrin Vaping Use Vaping Use: Never used Substance Use Topics Alcohol use: No Drug use: No Physical Examination: BP 130/85 Pulse 97 Ht 160 cm (5' 3 ) Wt 86.5 kg (190 lb 9.6 oz) BMI 33.76 kg/m Body mass index is 33.76 kg/m . Physical Exam Constitutional: Appearance: Normal appearance. HENT: Head: Normocephalic and atraumatic. Nose: Nose normal. Mouth/Throat: Mouth: Mucous membranes are moist. Eyes: Extraocular Movements: Extraocular movements intact. Pupils: Pupils are equal, round, and reactive to light. Cardiovascular: Rate and Rhythm: Normal rate. Pulses: Normal pulses. Pulmonary: Effort: Pulmonary effort is normal. Abdominal: Palpations: Abdomen is soft. Musculoskeletal: General: Normal range of motion. Cervical back: Normal range of motion and neck supple. Skin: General: Skin is warm and dry. Neurological: General: No focal deficit present. Mental Status: She is alert and oriented to person, place, and time. Psychiatric: Mood and Affect: Mood normal. Behavior: Behavior normal. Radiologic/Endoscopic/Laboratory Studies to Date EGD and colonoscopy 12/10/22 Diverticulosis in sigmoid and one rectal polyp; gastric diverticulum by cardiac of the stomach Path: FINAL DIAGNOSIS A. Antrum, biopsy: - Oxyntic mucosa with PPI effect and reactive change. - No antral mucosa identified. B. Duodenum, biopsy: - Duodenal mucosa with no diagnostic abnormality. C. Rectum, polyp, biopsy: - Polypoid rectal mucosa with surface hyperplastic change. CT abdomen/pelvis 12/27/22 Gastric diverticulum and colitis Assessment: Patient is a 62 year old female with severe refractory GERD on PPI BID and possible gastroparesis and large gastric diverticulum. I believe her symptoms have been exacerbated by use of Ozempic as it causes gastroparesis; she has now been off for a couple of weeks so its effects should wear off soon. I recommend she stay off of GP1- agonists. Will need a few more studies including GES and Manometry to pin down the source of her reflux/regurg issues and then plan for surgical management. Plan I have discussed further workup of the patient's symptoms at great length today including proceeding with diagnostic EGD, high-resolution manometry, and a pH probe study. We also recommend the following additional studies: GES off of Ozempic. We have discussed both medical and surgical options with the patients today in clinic including Paraesophageal hernia repair, Sivan-en-Y, and pyloromyotomy. . Once the patient has obtained the above studies, we will review the results at the next clinic visit to determine the appropriate plan of care to fit the patient's treatment goals. Return to clinic following completion of the above workup.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 1, Dx:M19.071, Z91.071 DULoxetine (CYMBALTA) 30 mg capsule Take 1 capsule by mouth once daily. [facility] No current facility-administered medications on file prior to visit. Social History Social History Tobacco Use Smoking status: Former Types: Cigarettes Quit date: 01/07/2018 Years since quittin.9 Smokeless tobacco: Never Tobacco comments: used welbutrin Vaping Use Vaping Use: Never used Substance Use Topics Alcohol use: No Drug use: No EXAM: There were no vitals taken for this visit. Health Maintenance List MAMMOGRAM due on 08/14/2023 DTAP,TDAP,TD(2 - Td or Tdap) due on 08/18/2023 ANNUAL PCP TEAM CHRONIC DISEASE VISIT due on 12/05/2023 DIABETES SCREEN due on 09/07/2025 LIPID SCREEN due on 09/07/2027 PAP TESTING due on 10/03/2027 HPV TESTING due on 10/03/2027 COLORECTAL CANCER SCREENING due on 08/13/2029 INFLUENZA Completed HEPATITIS C SCREENING Completed HIV SCREENING Completed SHINGRIX VACCINE Completed COVID-19 VACCINE Discontinued Data reviewed Weight 198 ASSESSMENT/PLAN: 1. Prediabetes - ICD9: 790.29, ICD10: R73.03 (primary diagnosis) - OZEMPIC 0.25 MG OR 0.5 MG (2 MG/1.5 ML) SUBCUTANEOUS PEN INJECTOR - OZEMPIC 1 MG/DOSE (4 MG/3 ML) SUBCUTANEOUS PEN INJECTOR 2. Obesity, Class II, BMI 35-39.9 - ICD9: 278.00, ICD10: E66.9 - OZEMPIC 0.25 MG OR 0.5 MG (2 MG/1.5 ML) SUBCUTANEOUS PEN INJECTOR - OZEMPIC 1 MG/DOSE (4 MG/3 ML) SUBCUTANEOUS PEN INJECTOR Increase Ozempic to 0.5 mg weekly for 4 weeks, then 1 mg weekly Follow up in 2 months Pedro Pulido MD documented in this encounter [facility] 12-05-2022 History of Present illness Narrative Chief Complaint Patient presents with: Follow Up: Dx'd with a UTI 11/24/22 at [facility] ED. Pt states she feels much better, no sx remain. HPI Chanda Haq is a 62 year old female who presents here today for recheck on URI and UTI. Patient went to ER on 11/24/22 for UTI symptoms. Urine showed evidence on infection so was started on keflex x1 week. She states that those symptoms have resolved. On 11/29 she developed URI symptoms. +fatigue and cough. She feels better than she did earlier this week. Was seen in [facility] care on 12/02 and tested neg for flu and covid. Multiple family members have similar symptoms. Past medical history, appointments, medications, allergies reviewed. Previous Medical History PAST MEDICAL HISTORY Diagnosis Date Acquired hypothyroidism 08/22/2015 ACUTE GASTRITIS W/O HEMORRHAGE 02/05/2006 Anxiety and depression 10/05/2020 Arthritis 05/18/2020 Arthritis of lumbar spine 03/05/2022 Mod Arthritis of right foot 09/02/2018 At high risk for falls 09/02/2018 Backache, unspecified 01/11/2013 Bilateral carotid artery stenosis 09/25/202009/2020 20-40% bilaterally Bipolar I disorder (HCC) 12/20/2005 Seeds Stinger at [facility] Cervical disc disorder with radiculopathy 09/27/2021 Cervical radiculopathy 09/19/2021 Cervical spondylosis 09/19/2021 Seeing pain management Cervical spondylosis without myelopathy 09/27/2021 Cervical stenosis of spinal canal 09/19/2021 Chronic pain of left knee 06/19/2019 Class 1 obesity due to excess calories without serious comorbidity with body mass index (BMI) of 33.0 to 33.9 in adult 03/03/2018 Current use of proton pump inhibitor 03/03/2018 Diaphragmatic hernia without mention of obstruction or gangrene 02/05/2006 Elevated hemoglobin A1c 06/29/2018 Encounter for screening mammogram for breast cancer 03/05/2019 Ex-smoker 08/22/2015 Started at age 14 and has smoked up to 1/2 a PPD, quit 12/2017 External hemorrhoids without mention of complication Gastroesophageal reflux disease with esophagitis 08/22/2015 Hearing loss Hearing aids in both ears. History of transient ischemic attack (TIA) 11/05/2019 Incontinence 02/20/[address] Jordan Irritable bowel syndrome with constipation 03/03/2018 Lactose intolerance 03/05/2019 Lung nodules 12/11/2017 CT 12/11/[address] 05/2018 stable needs repeat in 2 yrs Medicare annual wellness visit, subsequent 03/03/2018 Medicare Part B: 06/17/2001 last done: 03/05/2019 Migraine without aura and without status migrainosus, not intractable 05/22/2016 Mixed hyperlipidemia 08/22/2015 JORDAN (obstructive sleep apnea) 09/02/2018 DME DASCO Osteopenia of lumbar spine 11/27/2020 Borderline on DXA 11/2020 Other constipation 07/21/2019 Overactive bladder 05/30/2015 Primary insomnia 07/30/2018 Primary osteoarthritis of left knee 11/05/2019 RLS (restless legs syndrome) 06/04/2019 S/P total knee arthroplasty, left 10/18/2020 Smoker 08/22/2015 Started at age 14 and has smoked up to 1/2 a PPD, quit 12/2017 Thoracic arthritis 03/05/2022 Mild Vitamin D deficiency 01/25/2020 Previous Surgical History PAST SURGICAL HISTORY Procedure Laterality Date ARTHROSCOPY KNEE DIAGNOSTIC W/WO SYNOVIAL BX SPX 1990s Arthroscopy, knee, Left ARTHRS KNE SURG W/MENISCECTOMY MED/LAT W/SHVG Left 12/01/2019 COLONOSCOPY 08/11/2019 one polyp, repeat 10 yrs COLONOSCOPY FLX DX W/COLLJ SPEC WHEN PFRMD 02/28/2009 COLONOSCOPY FLX DX W/COLLJ SPEC WHEN PFRMD 02/04/2018 Colonoscopy EGD 03/24/2018 Dr. Garcia reported as normal. Neg for Hpylori and celiac. ESOPHAGOGASTRODUODENOSCOPY TRANSORAL DIAGNOSTIC 02/05/2006 EGD ESOPHAGOGASTRODUODENOSCOPY TRANSORAL DIAGNOSTIC 12/21/2014 EGD ESOPHAGOGASTRODUODENOSCOPY TRANSORAL DIAGNOSTIC 03/29/2015 EGD EXC/DSTRJ LINGUAL TONSIL ANY METHOD SPX remote FECAL OCCULT BLOOD TEST 12/19/2016 negative PAST SURGICAL HISTORY OF 10/05/2015 TOT monarc sling PAST SURGICAL HISTORY OF 10/05/2015 Cystourethroscopy PAST SURGICAL HISTORY OF Left 05/03/2016 ulnar nerve decompression STRESS TEST 12/10/2016 normal TOTAL KNEE REPLACEMENT Left 10/18/2020 Left Total knee arthrosplasty Family History FAMILY HISTORY Problem Relation Age of Onset Cancer Mother Hysterectomy Alcohol/Drug Father Alcoholic other (Leukemia) Sister shortly after Heart Attack Brother x 2 Diabetes Brother Heart Maternal Grandmother Hearing Loss Maternal Grandmother Headache Maternal Grandmother Diabetes Maternal Grandmother Stroke Maternal Grandmother Heart Maternal Grandfather Diabetes Maternal Grandfather No Known Problems Paternal Grandmother No Known Problems Paternal Grandfather Coronary Artery Disease Son Hyperlipidemia Son Hypertension Son Hyperlipidemia Son No Known Problems Son Colon Cancer No Family History Patient Allergies ALLERGIES Allergen Reactions Ditropan [Oxybutyni* Other: See Comments Nausea,vomiting Benztropine Other: See Comments, Unknown Oxybutynin Other: See Comments Oxycodone GI Upset, Unknown Cogentin [Benztropi* Other: See Comments Blurred vision Depakote [Divalproe* GI Upset Flagyl [Metronidazo* GI Upset Nausea and vomiting Ibuprofen GI Upset Nexium [Esomeprazol* Unknown Percocet [Oxycodone* Other: See Comments Nausea, RDZ, eye swelling Tylenol [Acetaminop* GI Upset diarrhea with high doses Current Medications Current Outpatient Medications on File Prior to Visit Medication Sig benzonatate (TESSALON PERLES) 100 mg capsule Take 1 capsule by mouth three times daily as needed for cough. plecanatide (TRULANCE) 3 mg tablet Take 1 tablet (3 mg) by mouth once daily. semaglutide (OZEMPIC) 0.25 mg or 0.5 mg(2 mg/1.5 mL) pen Inject 0.25 mg subcutaneously one time a week. ARIPiprazole (ABILIFY) 15 mg tablet Take 15 mg by mouth once daily. pantoprazole DR (PROTONIX) 40 mg tablet Take 1 tablet by mouth twice daily. Take on empty stomach, 1/2 hr before meal. topiramate (TOPAMAX) 100 mg tablet Take 1 tablet by mouth twice daily. rimegepant (NURTEC ODT) 75 mg disintegrating tablet Take 1 tablet by mouth once daily as needed. tiZANidine (ZANAFLEX) 4 mg tablet TAKE 1 PILL UP TO 3 TIMES PER DAY NEEDED FOR PAINFUL MUSCLE SPASMS gabapentin (NEURONTIN) 400 mg capsule Take 1 capsule by mouth three times daily for 180 days. sucralfate (CARAFATE) 1 gram tablet Take 1 tablet by mouth daily at bedtime. rOPINIRole (REQUIP) 1 mg tablet Take one tab by mouth before bed. rosuvastatin (CRESTOR) 40 mg tablet Take 1 tablet by mouth daily at bedtime. metFORMIN ER (GLUCOPHAGE XR) 500 mg 24 hr tablet Take 1 tablet by mouth daily with breakfast. ergocalciferol 50,000 unit capsule (VITAMIN D2, DRISDOL) Take one capsule twice a week (Fri and ) amitriptyline (ELAVIL) 25 mg tablet Take 1 tablet by mouth daily at bedtime. ondansetron orally disintegrating (ZOFRAN ODT) 4 mg disintegrating tablet Take 1 tablet by mouth every 8 hours as needed for nausea/vomiting. levothyroxine (SYNTHROID) 137 mcg tablet Take one daily Fri-Fri and two on Friday. Fenofibrate (LOFIBRA) 54 mg tablet Take 1 tablet by mouth once daily. aspirin, enteric coated (ASPIRIN, ENTERIC COATED) 81 mg EC tablet Take 81 mg by mouth once daily. famotidine (PEPCID) 40 mg tablet Take 1 tablet by mouth daily before dinner. ezetimibe (ZETIA) 10 mg tablet Take 1 tablet by mouth once daily. cyanocobalamin (VITAMIN B-12) 1,000 mcg tab Take 1 tablet by mouth once daily. CPAP Mask fitting and 30 day download for autopap 10 -20 cm H2O & formal mask refitting for medical necessity & schedule with the RT, chin strap, head gear, humidity, heated tubing (SACHI), lifetime supplies. G47.33 JORDAN albuterol HFA (PROVENTIL HFA, VENTOLIN HFA) 90 mcg/actuation inhaler Inhale 2 Puffs as instructed every 4 hours as needed for wheezing/shortness of breath. blood sugar diagnostic (BLOOD GLUCOSE TEST) test strip Test blood sugar(s) 1 times daily. Dx: Other DM Code R73.03 Insulin: No Lancets lancets Test blood sugar(s) 1 times daily. Dx: Other DM Code R73.03 Insulin: No lactase (LACTAID) 3,000 unit tablet Take 1 tablet by mouth three times daily with meals. acetaminophen (TYLENOL ARTHRITIS ORAL) Take 650 mg by mouth every 8 hours as needed. [place]-3 Fatty Acids 100 mg chew [place]-3 Fatty Acids [place]-3 Fatty Acids Active 2000 MG DAILY November 21, 2016 10:19am 11-21-2016 [facility] ([id number]) Lactobacillus acidophilus (FLORAJEN) 460 mg (20 billion cell) cap Take 1 capsule by mouth once daily. COMPOUNDED PRESCRIPTION Wheeled rolator walker with ahnd breaks and seat, # 1, Dx:M19.071, Z91.071 DULoxetine (CYMBALTA) 30 mg capsule Take 1 capsule by mouth once daily. [facility] linaclotide (LINZESS) 145 mcg capsule Take 1 capsule by mouth DAILY (6 AM). (Patient not taking: Reported on 12/05/2022) polyethylene glycol 3350 (MIRALAX) 17 gram/dose powder Take 17 g by mouth once daily. Dissolve dose in 4 - 8 ounces of liquid and take as directed. (Patient not taking: Reported on 12/05/2022) No current facility-administered medications on file prior to visit. Social History Social History Tobacco Use Smoking status: Former Types: Cigarettes Quit date: 01/07/2018 Years since quittin.9 Smokeless tobacco: Never Tobacco comments: used welbutrin Vaping Use Vaping Use: Never used Substance Use Topics Alcohol use: No Drug use: No Review of Symptoms REVIEW OF SYSTEMS See hpi EXAM: BP 118/78 Pulse 81 Resp 16 Wt 90.8 kg (200 lb 3.2 oz) SpO2 93% BMI 35.03 kg/m General Appearance: Well appearing, alert, in no acute distress, well-hydrated, well nourished.. Ears: TMs bulging bilaterally. No erythema.. Neck: Supple, no adenopathy; thyroid symmetric, normal size, no bruits. Lungs: Lungs clear to auscultation. No wheezing, rhonchi, rales.. Heart: RRR without murmur, gallop, or rubs. No ectopy. Abdomen: Normal abdominal exam, Abdomen soft, non-tender. Bowel sounds normal. No masses, organomegaly. Extremities: No deformities, edema, skin discoloration, clubbing or cyanosis. Good capillary refill. . Peripheral Pulses: Normal. Health Maintenance List MAMMOGRAM due on 08/14/2023 DTAP,TDAP,TD(2 - Td or Tdap) due on 08/18/2023 ANNUAL PCP TEAM CHRONIC DISEASE VISIT due on 11/13/2023 DIABETES SCREEN due on 09/07/2025 LIPID SCREEN due on 09/07/2027 PAP TESTING due on 10/03/2027 HPV TESTING due on 10/03/2027 COLORECTAL CANCER SCREENING due on 08/13/2029 INFLUENZA Completed HEPATITIS C SCREENING Completed HIV SCREENING Completed SHINGRIX VACCINE Completed COVID-19 VACCINE Discontinued Data reviewed ASSESSMENT/PLAN: 1. Urinary tract infection with hematuria, site unspecified - ICD9: 599.0, 599.70, ICD10: N39.0, R31.9 (primary diagnosis) Resolved. Will get culture. - URINE CULTURE 2. URI, acute - ICD9: 465.9, ICD10: J06.9 Improving. Patient to let me know if symptoms worsen. Olvin Richard PA-C documented in this encounter [facility] 12-02-2022 History of Present illness Narrative This note was created using NoteWriter. Subjective Chanda Haq is a 62 year old female. 62 years old female is her with acute illness that started 3 days ago +nasal congestion +sore throat +productive cough with green tick sputum +generalized muscles pain and tiredness/fatigue +nausea and vomiting two times this morning, Zofran PO was effective +SOB, takes rescue inhaler (Albuterol) daily +headache that comes and goes States that her was in contact with person who has similar symptoms and started to have same symptoms couple days before her Hx of lungs scaring form multiple bronchitis and pneumonias in the past, and lungs nodules Hx IBS with daily stool softener Hx allergy shots Denies ears pain, reported using hearing aids Denies chest pain, palpitation, edemas to lower extremities Denies urinary frequency or urgency, pain or burning with urination The history is provided by the patient. No russian language professor was used. Cough This is a new problem. The current episode started more than 2 days ago. The problem occurs every few minutes. The problem has been gradually worsening. The cough is Productive of purulent sputum. There has been no fever. Associated symptoms include chills, headaches, rhinorrhea, sore throat, myalgias and shortness of breath. Pertinent negatives include no chest pain, no sweats, no weight loss, no ear congestion, no ear pain, no wheezing and no eye redness. She has tried decongestants for the symptoms. The treatment provided mild relief. Risk factors: contact with ill persons. She is not a smoker. Her past medical history is significant for bronchitis and pneumonia. Past medical history comments: lungs nodules. PAST MEDICAL HISTORY Diagnosis Date Acquired hypothyroidism 08/22/2015 ACUTE GASTRITIS W/O HEMORRHAGE 02/05/2006 Anxiety and depression 10/05/2020 Arthritis 05/18/2020 Arthritis of lumbar spine 03/05/2022 Mod Arthritis of right foot 09/02/2018 At high risk for falls 09/02/2018 Backache, unspecified 01/11/2013 Bilateral carotid artery stenosis 09/25/202009/2020 20-40% bilaterally Bipolar I disorder (HCC) 12/20/2005 [facility] Cervical disc disorder with radiculopathy 09/27/2021 Cervical radiculopathy 09/19/2021 Cervical spondylosis 09/19/2021 Seeing pain management Cervical spondylosis without myelopathy 09/27/2021 Cervical stenosis of spinal canal 09/19/2021 Chronic pain of left knee 06/19/2019 Class 1 obesity due to excess calories without serious comorbidity with body mass index (BMI) of 33.0 to 33.9 in adult 03/03/2018 Current use of proton pump inhibitor 03/03/2018 Diaphragmatic hernia without mention of obstruction or gangrene 02/05/2006 Elevated hemoglobin A1c 06/29/2018 Encounter for screening mammogram for breast cancer 03/05/2019 Ex-smoker 08/22/2015 Started at age 14 and has smoked up to 1/2 a PPD, quit 12/2017 External hemorrhoids without mention of complication Gastroesophageal reflux disease with esophagitis 08/22/2015 Hearing loss Hearing aids in both ears. History of transient ischemic attack (TIA) 11/05/2019 Incontinence 02/20/[address] Jordan Irritable bowel syndrome with constipation 03/03/2018 Lactose intolerance 03/05/2019 Lung nodules 12/11/2017 CT 12/11/[address] 05/2018 stable needs repeat in 2 yrs Medicare annual wellness visit, subsequent 03/03/2018 Medicare Part B: 06/17/2001 last done: 03/05/2019 Migraine without aura and without status migrainosus, not intractable 05/22/2016 Mixed hyperlipidemia 08/22/2015 JORDAN (obstructive sleep apnea) 09/02/2018 DME DASCO Osteopenia of lumbar spine 11/27/2020 Borderline on DXA 11/2020 Other constipation 07/21/2019 Overactive bladder 05/30/2015 Primary insomnia 07/30/2018 Primary osteoarthritis of left knee 11/05/2019 RLS (restless legs syndrome) 06/04/2019 S/P total knee arthroplasty, left 10/18/2020 Smoker 08/22/2015 Started at age 14 and has smoked up to 1/2 a PPD, quit 12/2017 Thoracic arthritis 03/05/2022 Mild Vitamin D deficiency 01/25/2020 PAST SURGICAL HISTORY Procedure Laterality Date ARTHROSCOPY KNEE DIAGNOSTIC W/WO SYNOVIAL BX SPX Arthroscopy, knee, Left ARTHRS KNE SURG W/MENISCECTOMY MED/LAT W/SHVG Left 12/01/2019 COLONOSCOPY 08/11/2019 one polyp, repeat 10 yrs COLONOSCOPY FLX DX W/COLLJ SPEC WHEN PFRMD 02/28/2009 COLONOSCOPY FLX DX W/COLLJ SPEC WHEN PFRMD 02/04/2018 Colonoscopy EGD 03/24/2018 Dr. Garcia reported as normal. Neg for Hpylori and celiac. ESOPHAGOGASTRODUODENOSCOPY TRANSORAL DIAGNOSTIC 02/05/2006 EGD ESOPHAGOGASTRODUODENOSCOPY TRANSORAL DIAGNOSTIC 12/21/2014 EGD ESOPHAGOGASTRODUODENOSCOPY TRANSORAL DIAGNOSTIC 03/29/2015 EGD EXC/DSTRJ LINGUAL TONSIL ANY METHOD SPX remote FECAL OCCULT BLOOD TEST 12/19/2016 negative PAST SURGICAL HISTORY OF 10/05/2015 TOT monarc sling PAST SURGICAL HISTORY OF 10/05/2015 Cystourethroscopy PAST SURGICAL HISTORY OF Left 05/03/2016 ulnar nerve decompression STRESS TEST 12/10/2016 normal TOTAL KNEE REPLACEMENT Left 10/18/2020 Left Total knee arthrosplasty ALLERGIES Ditropan [Oxybutynin Chloride], Benztropine, Oxybutynin, Oxycodone, Cogentin [Benztropine Mesylate], Depakote [Divalproex Sodium], Flagyl [Metronidazole Hcl], Ibuprofen, Nexium [Esomeprazole Magnesium], Percocet [Oxycodone-Acetaminophen], and Tylenol [Acetaminophen] MEDICATIONS benzonatate (TESSALON PERLES) 100 mg capsule Take 1 capsule by mouth three times daily as needed for cough. plecanatide (TRULANCE) 3 mg tablet Take 1 tablet (3 mg) by mouth once daily. semaglutide (OZEMPIC) 0.25 mg or 0.5 mg(2 mg/1.5 mL) pen Inject 0.25 mg subcutaneously one time a week. linaclotide (LINZESS) 145 mcg capsule Take 1 capsule by mouth DAILY (6 AM). ARIPiprazole (ABILIFY) 15 mg tablet Take 15 mg by mouth once daily. polyethylene glycol 3350 (MIRALAX) 17 gram/dose powder Take 17 g by mouth once daily. Dissolve dose in 4 - 8 ounces of liquid and take as directed. pantoprazole DR (PROTONIX) 40 mg tablet Take 1 tablet by mouth twice daily. Take on empty stomach, 1/2 hr before meal. topiramate (TOPAMAX) 100 mg tablet Take 1 tablet by mouth twice daily. rimegepant (NURTEC ODT) 75 mg disintegrating tablet Take 1 tablet by mouth once daily as needed. tiZANidine (ZANAFLEX) 4 mg tablet TAKE 1 PILL UP TO 3 TIMES PER DAY NEEDED FOR PAINFUL MUSCLE SPASMS gabapentin (NEURONTIN) 400 mg capsule Take 1 capsule by mouth three times daily for 180 days. sucralfate (CARAFATE) 1 gram tablet Take 1 tablet by mouth daily at bedtime. rOPINIRole (REQUIP) 1 mg tablet Take one tab by mouth before bed. rosuvastatin (CRESTOR) 40 mg tablet Take 1 tablet by mouth daily at bedtime. metFORMIN ER (GLUCOPHAGE XR) 500 mg 24 hr tablet Take 1 tablet by mouth daily with breakfast. ergocalciferol 50,000 unit capsule (VITAMIN D2, DRISDOL) Take one capsule twice a week (Fri and ) amitriptyline (ELAVIL) 25 mg tablet Take 1 tablet by mouth daily at bedtime. ondansetron orally disintegrating (ZOFRAN ODT) 4 mg disintegrating tablet Take 1 tablet by mouth every 8 hours as needed for nausea/vomiting. levothyroxine (SYNTHROID) 137 mcg tablet Take one daily and two on Friday. Fenofibrate (LOFIBRA) 54 mg tablet Take 1 tablet by mouth once daily. aspirin, enteric coated (ASPIRIN, ENTERIC COATED) 81 mg EC tablet Take 81 mg by mouth once daily. famotidine (PEPCID) 40 mg tablet Take 1 tablet by mouth daily before dinner. ezetimibe (ZETIA) 10 mg tablet Take 1 tablet by mouth once daily. cyanocobalamin (VITAMIN B-12) 1,000 mcg tab Take 1 tablet by mouth once daily. CPAP Mask fitting and 30 day download for autopap 10 -20 cm H2O & formal mask refitting for medical necessity & schedule with the RT, chin strap, head gear, humidity, heated tubing (SACHI), lifetime supplies. G47.33 JORDAN albuterol HFA (PROVENTIL HFA, VENTOLIN HFA) 90 mcg/actuation inhaler Inhale 2 Puffs as instructed every 4 hours as needed for wheezing/shortness of breath. blood sugar diagnostic (BLOOD GLUCOSE TEST) test strip Test blood sugar(s) 1 times daily. Dx: Other DM Code R73.03 Insulin: No Lancets lancets Test blood sugar(s) 1 times daily. Dx: Other DM Code R73.03 Insulin: No lactase (LACTAID) 3,000 unit tablet Take 1 tablet by mouth three times daily with meals. acetaminophen (TYLENOL ARTHRITIS ORAL) Take 650 mg by mouth every 8 hours as needed. [place]-3 Fatty Acids 100 mg chew [place]-3 Fatty Acids [place]-3 Fatty Acids Active 2000 MG DAILY November 21, 2016 10:19am 11-21-2016 [facility] ([id number]) Lactobacillus acidophilus (FLORAJEN) 460 mg (20 billion cell) cap Take 1 capsule by mouth once daily. COMPOUNDED PRESCRIPTION Wheeled rolator walker with ahnd breaks and seat, # 1, Dx:M19.071, Z91.071 DULoxetine (CYMBALTA) 30 mg capsule Take 1 capsule by mouth once daily. [facility] FAMILY HISTORY Problem Relation Age of Onset Cancer Mother Hysterectomy Alcohol/Drug Father Alcoholic other (Leukemia) Sister shortly after Heart Attack Brother x 2 Diabetes Brother Heart Maternal Grandmother Hearing Loss Maternal Grandmother Headache Maternal Grandmother Diabetes Maternal Grandmother Stroke Maternal Grandmother Heart Maternal Grandfather Diabetes Maternal Grandfather No Known Problems Paternal Grandmother No Known Problems Paternal Grandfather Coronary Artery Disease Son Hyperlipidemia Son Hypertension Son Hyperlipidemia Son No Known Problems Son Colon Cancer No Family History Social History Tobacco Use Smoking status: Former Types: Cigarettes Quit date: 01/07/2018 Years since quittin.9 Smokeless tobacco: Never Tobacco comments: used The Moment Vaping Use Vaping Use: Never used Substance Use Topics Alcohol use: No Drug use: No Review of Systems Constitutional: Positive for chills and fatigue. Negative for activity change, appetite change, diaphoresis, fever and weight loss. HENT: Positive for congestion, postnasal drip, rhinorrhea, sinus pain and sore throat. Negative for ear discharge, ear pain, hearing loss, mouth sores, sinus pressure, sneezing, tinnitus and trouble swallowing. Eyes: Negative for pain, discharge, redness and itching. Respiratory: Positive for cough and shortness of breath. Negative for wheezing. Cardiovascular: Negative for chest pain, palpitations and leg swelling. Gastrointestinal: Positive for nausea and vomiting. Negative for abdominal distention, abdominal pain, constipation and diarrhea. Genitourinary: Negative for decreased urine volume, difficulty urinating, dysuria, flank pain, frequency, hematuria, pelvic pain, urgency and vaginal pain. Musculoskeletal: Positive for myalgias, neck pain and neck stiffness. Negative for arthralgias, back pain, gait problem and joint swelling. Skin: Negative for rash and wound. Allergic/Immunologic: Positive for immunocompromised state. Negative for environmental allergies and food allergies. Neurological: Positive for weakness and headaches. Negative for dizziness, facial asymmetry and light-headedness. Psychiatric/Behavioral: Negative for behavioral problems. Objective BP 120/86 Pulse 78 Temp 36.5 C (97.7 F) Resp 18 Wt 91.2 kg (201 lb) SpO2 96% BMI 35.17 kg/m Physical Exam Vitals and nursing note reviewed. Constitutional: General: She is not in acute distress. Appearance: Normal appearance. She is not ill-appearing, toxic-appearing or diaphoretic. HENT: Head: Normocephalic and atraumatic. Right Ear: Ear canal and external ear normal. Decreased hearing noted. No laceration, drainage, swelling or tenderness. There is no impacted cerumen. No foreign body. No PE tube. Tympanic membrane is erythematous and bulging. Left Ear: Ear canal and external ear normal. Decreased hearing noted. No laceration, drainage, swelling or tenderness. There is no impacted cerumen. No foreign body. No PE tube. Tympanic membrane is not scarred, erythematous, retracted or bulging. Nose: Congestion present. No rhinorrhea. Mouth/Throat: Mouth: Mucous membranes are moist. Pharynx: Posterior oropharyngeal erythema present. No oropharyngeal exudate. Eyes: General: No scleral icterus. Right eye: No discharge. Left eye: No discharge. Conjunctiva/sclera: Conjunctivae normal. Pupils: Pupils are equal, round, and reactive to light. Cardiovascular: Rate and Rhythm: Normal rate and regular rhythm. Pulses: Normal pulses. Heart sounds: Normal heart sounds. No murmur heard. No friction rub. No gallop. Pulmonary: Effort: Pulmonary effort is normal. No respiratory distress. Breath sounds: Normal breath sounds. No stridor. No wheezing, rhonchi or rales. Chest: Chest wall: No tenderness. Abdominal: General: Bowel sounds are normal. There is no distension. Palpations: Abdomen is soft. There is no mass. Tenderness: There is no abdominal tenderness. There is no right CVA tenderness, left CVA tenderness or guarding. Hernia: No hernia is present. Musculoskeletal: General: No swelling, tenderness, deformity or signs of injury. Cervical back: No rigidity. Right lower leg: No edema. Left lower leg: No edema. Lymphadenopathy: Cervical: Cervical adenopathy (left submandibular adenopathy) present. Skin: General: Skin is warm and dry. Capillary Refill: Capillary refill takes less than 2 seconds. Coloration: Skin is not jaundiced or pale. Findings: No lesion or rash. Neurological: General: No focal deficit present. Mental Status: She is alert and oriented to person, place, and time. Sensory: No sensory deficit. Motor: No weakness. Coordination: Coordination normal. Gait: Gait normal. Psychiatric: Mood and Affect: Mood normal. Behavior: Behavior normal. Thought Content: Thought content normal. Judgment: Judgment normal. Assessment and Plan ASSESSMENT/PLAN: 1. Acute cough - ICD9: 786.2, ICD10: R05.1 (primary diagnosis) X 2 to 3 days No red flags - XR CHEST 2V FRONTAL/LAT- negative for acute process, no red flags, given length of symptoms 3 days most likely viral etiology - COVID WITH FLUA+B, ROUTINE- results pending 2. URI, acute - ICD9: 465.9, ICD10: J06.9 X 2 to 3 days - Discussed viral etiology and rationale for treatment. - Symptomatic treatment with prn analgesia - Supportive care with fluids and rest - The patient may also use OTC cough and cold meds as needed, warm salt water gargles, throat lozenges and/or OTC throat spray as needed, nasal saline gtts and suction prn. - Follow up in 3-5 days if symptoms persist or sooner if worsening of symptoms - COVID WITH FLUA+B, ROUTINE-results pending -Tessalon Drops PRN for cough, OTC Ibuprofen for PRN for generalized pain, rest and plenty fluids Anastasiia Alves TEACHING PROVIDER (Physician/PA/CARE PROGRAM RESIDENT) NOTE OF PERSONAL INVOLVEMENT IN CARE: I have personally seen and examined the patient and performed the medical decision-making components. I have reviewed the Advanced Practice Registered Nurse (CARE PROGRAM RESIDENT) Student's documentation and verified the findings in the note as written. Any additions or changes are noted in bold/italics. Signature: Ana Morgan Date: 12/02/2022 Time: 4:15 PM documented in this encounter [facility] 11-19-2022 Miscellaneous Notes See pt message. Is this something she should discuss with PCP? She is coming to you for weight loss only? Samina Andres Ma documented in this encounter [facility] 11-13-2022 History of Present illness Narrative Chief Complaint Weight gain HPI: This Team Access Model visit is a virtual encounter. It required patient-provider interaction for the medical decision making as documented below. Patient was offered a virtual/telemedicine appointment in lieu of an office visit due to recommendations to reduce patient exposure to COVID-19. Patient is aware of limitations of performing the visit without a face to face visit in the office setting and agrees. Pt of Dr. Sylvester who wants to discuss fatty liver disease and weight loss. She has been following with Gastro Lizz HICKS. She sent a [employer] message to GI asking if weight loss medications could be prescribed, that she was reading she needed to lose 10% of her weight. Gastro stated she needed to work on diet and exercise or speak with PCP about weight loss options. She is on medication for mental health (abilify, duloxetine) that make weight loss difficult. She has been following a Mediterranean diet, but not losing weight. She does have elevated glucose levels, and is on metformin. Past medical history, appointments, medications, allergies reviewed. Previous Medical History PAST MEDICAL HISTORY Diagnosis Date Acquired hypothyroidism 08/22/2015 ACUTE GASTRITIS W/O HEMORRHAGE 02/05/2006 Anxiety and depression 10/05/2020 Arthritis 05/18/2020 Arthritis of lumbar spine 03/05/2022 Mod Arthritis of right foot 09/02/2018 At high risk for falls 09/02/2018 Backache, unspecified 01/11/2013 Bilateral carotid artery stenosis 09/25/202009/2020 20-40% bilaterally Bipolar I disorder (HCC) 12/20/2005 Seeds Stinger at [facility] Cervical disc disorder with radiculopathy 09/27/2021 Cervical radiculopathy 09/19/2021 Cervical spondylosis 09/19/2021 Seeing pain management Cervical spondylosis without myelopathy 09/27/2021 Cervical stenosis of spinal canal 09/19/2021 Chronic pain of left knee 06/19/2019 Class 1 obesity due to excess calories without serious comorbidity with body mass index (BMI) of 33.0 to 33.9 in adult 03/03/2018 Current use of proton pump inhibitor 03/03/2018 Diaphragmatic hernia without mention of obstruction or gangrene 02/05/2006 Elevated hemoglobin A1c 06/29/2018 Encounter for screening mammogram for breast cancer 03/05/2019 Ex-smoker 08/22/2015 Started at age 14 and has smoked up to 1/2 a PPD, quit 12/2017 External hemorrhoids without mention of complication Gastroesophageal reflux disease with esophagitis 08/22/2015 Hearing loss Hearing aids in both ears. History of transient ischemic attack (TIA) 11/05/2019 Incontinence 02/20/[address] Jordan Irritable bowel syndrome with constipation 03/03/2018 Lactose intolerance 03/05/2019 Lung nodules 12/11/2017 CT 12/11/[address] 05/2018 stable needs repeat in 2 yrs Medicare annual wellness visit, subsequent 03/03/2018 Medicare Part B: 06/17/2001 last done: 03/05/2019 Migraine without aura and without status migrainosus, not intractable 05/22/2016 Mixed hyperlipidemia 08/22/2015 JORDAN (obstructive sleep apnea) 09/02/2018 DME DASCO Osteopenia of lumbar spine 11/27/2020 Borderline on DXA 11/2020 Other constipation 07/21/2019 Overactive bladder 05/30/2015 Primary insomnia 07/30/2018 Primary osteoarthritis of left knee 11/05/2019 RLS (restless legs syndrome) 06/04/2019 S/P total knee arthroplasty, left 10/18/2020 Smoker 08/22/2015 Started at age 14 and has smoked up to 1/2 a PPD, quit 12/2017 Thoracic arthritis 03/05/2022 Mild Vitamin D deficiency 01/25/2020 Previous Surgical History PAST SURGICAL HISTORY Procedure Laterality Date ARTHROSCOPY KNEE DIAGNOSTIC W/WO SYNOVIAL BX SPX Arthroscopy, knee, Left ARTHRS KNE SURG W/MENISCECTOMY MED/LAT W/SHVG Left 12/01/2019 COLONOSCOPY 08/11/2019 one polyp, repeat 10 yrs COLONOSCOPY FLX DX W/COLLJ SPEC WHEN PFRMD 02/28/2009 COLONOSCOPY FLX DX W/COLLJ SPEC WHEN PFRMD 02/04/2018 Colonoscopy EGD 03/24/2018 Dr. Garcia reported as normal. Neg for Hpylori and celiac. ESOPHAGOGASTRODUODENOSCOPY TRANSORAL DIAGNOSTIC 02/05/2006 EGD ESOPHAGOGASTRODUODENOSCOPY TRANSORAL DIAGNOSTIC 12/21/2014 EGD ESOPHAGOGASTRODUODENOSCOPY TRANSORAL DIAGNOSTIC 03/29/2015 EGD EXC/DSTRJ LINGUAL TONSIL ANY METHOD SPX remote FECAL OCCULT BLOOD TEST 12/19/2016 negative PAST SURGICAL HISTORY OF 10/05/2015 TOT monarc sling PAST SURGICAL HISTORY OF 10/05/2015 Cystourethroscopy PAST SURGICAL HISTORY OF Left 05/03/2016 ulnar nerve decompression STRESS TEST 12/10/2016 normal TOTAL KNEE REPLACEMENT Left 10/18/2020 Left Total knee arthrosplasty Family History FAMILY HISTORY Problem Relation Age of Onset Cancer Mother Hysterectomy Alcohol/Drug Father Alcoholic other (Leukemia) Sister shortly after Heart Attack Brother x 2 Diabetes Brother Heart Maternal Grandmother Hearing Loss Maternal Grandmother Headache Maternal Grandmother Diabetes Maternal Grandmother Stroke Maternal Grandmother Heart Maternal Grandfather Diabetes Maternal Grandfather No Known Problems Paternal Grandmother No Known Problems Paternal Grandfather Coronary Artery Disease Son Hyperlipidemia Son Hypertension Son Hyperlipidemia Son No Known Problems Son Colon Cancer No Family History Patient Allergies ALLERGIES Allergen Reactions Ditropan [Oxybutyni* Other: See Comments Nausea,vomiting Benztropine Other: See Comments, Unknown Oxybutynin Other: See Comments Oxycodone GI Upset, Unknown Cogentin [Benztropi* Other: See Comments Blurred vision Depakote [Divalproe* GI Upset Flagyl [Metronidazo* GI Upset Nausea and vomiting Ibuprofen GI Upset Nexium [Esomeprazol* Unknown Percocet [Oxycodone* Other: See Comments Nausea, RDZ, eye swelling Tylenol [Acetaminop* GI Upset diarrhea with high doses Current Medications Current Outpatient Medications on File Prior to Visit Medication Sig linaclotide (LINZESS) 145 mcg capsule Take 1 capsule by mouth DAILY (6 AM). ARIPiprazole (ABILIFY) 15 mg tablet Take 15 mg by mouth once daily. polyethylene glycol 3350 (MIRALAX) 17 gram/dose powder Take 17 g by mouth once daily. Dissolve dose in 4 - 8 ounces of liquid and take as directed. pantoprazole DR (PROTONIX) 40 mg tablet Take 1 tablet by mouth twice daily. Take on empty stomach, 1/2 hr before meal. topiramate (TOPAMAX) 100 mg tablet Take 1 tablet by mouth twice daily. rimegepant (NURTEC ODT) 75 mg disintegrating tablet Take 1 tablet by mouth once daily as needed. tiZANidine (ZANAFLEX) 4 mg tablet TAKE 1 PILL UP TO 3 TIMES PER DAY NEEDED FOR PAINFUL MUSCLE SPASMS gabapentin (NEURONTIN) 400 mg capsule Take 1 capsule by mouth three times daily for 180 days. sucralfate (CARAFATE) 1 gram tablet Take 1 tablet by mouth daily at bedtime. rOPINIRole (REQUIP) 1 mg tablet Take one tab by mouth before bed. rosuvastatin (CRESTOR) 40 mg tablet Take 1 tablet by mouth daily at bedtime. metFORMIN ER (GLUCOPHAGE XR) 500 mg 24 hr tablet Take 1 tablet by mouth daily with breakfast. ergocalciferol 50,000 unit capsule (VITAMIN D2, DRISDOL) Take one capsule twice a week (Fri and ) amitriptyline (ELAVIL) 25 mg tablet Take 1 tablet by mouth daily at bedtime. ondansetron orally disintegrating (ZOFRAN ODT) 4 mg disintegrating tablet Take 1 tablet by mouth every 8 hours as needed for nausea/vomiting. levothyroxine (SYNTHROID) 137 mcg tablet Take one daily and two on Friday. Fenofibrate (LOFIBRA) 54 mg tablet Take 1 tablet by mouth once daily. aspirin, enteric coated (ASPIRIN, ENTERIC COATED) 81 mg EC tablet Take 81 mg by mouth once daily. famotidine (PEPCID) 40 mg tablet Take 1 tablet by mouth daily before dinner. ezetimibe (ZETIA) 10 mg tablet Take 1 tablet by mouth once daily. cyanocobalamin (VITAMIN B-12) 1,000 mcg tab Take 1 tablet by mouth once daily. CPAP Mask fitting and 30 day download for autopap 10 -20 cm H2O & formal mask refitting for medical necessity & schedule with the RT, chin strap, head gear, humidity, heated tubing (SACHI), lifetime supplies. G47.33 JORDAN albuterol HFA (PROVENTIL HFA, VENTOLIN HFA) 90 mcg/actuation inhaler Inhale 2 Puffs as instructed every 4 hours as needed for wheezing/shortness of breath. blood sugar diagnostic (BLOOD GLUCOSE TEST) test strip Test blood sugar(s) 1 times daily. Dx: Other DM Code R73.03 Insulin: No Lancets lancets Test blood sugar(s) 1 times daily. Dx: Other DM Code R73.03 Insulin: No lactase (LACTAID) 3,000 unit tablet Take 1 tablet by mouth three times daily with meals. acetaminophen (TYLENOL ARTHRITIS ORAL) Take 650 mg by mouth every 8 hours as needed. [place]-3 Fatty Acids 100 mg chew [place]-3 Fatty Acids [place]-3 Fatty Acids Active 2000 MG DAILY November 21, 2016 10:19am 11-21-2016 [facility] ([id number]) Lactobacillus acidophilus (FLORAJEN) 460 mg (20 billion cell) cap Take 1 capsule by mouth once daily. COMPOUNDED PRESCRIPTION Wheeled rolator walker with ahnd breaks and seat, # 1, Dx:M19.071, Z91.071 DULoxetine (CYMBALTA) 30 mg capsule Take 1 capsule by mouth once daily. [facility] No current facility-administered medications on file prior to visit. Social History Social History Tobacco Use Smoking status: Former Types: Cigarettes Quit date: 01/07/2018 Years since quittin.8 Smokeless tobacco: Never Tobacco comments: used welbutrin Vaping Use Vaping Use: Never used Substance Use Topics Alcohol use: No Drug use: No EXAM: There were no vitals taken for this visit. NAD Health Maintenance List MAMMOGRAM due on 08/14/2023 DTAP,TDAP,TD(2 - Td or Tdap) due on 08/18/2023 ANNUAL PCP TEAM CHRONIC DISEASE VISIT due on 10/01/2023 DIABETES SCREEN due on 09/07/2025 LIPID SCREEN due on 09/07/2027 PAP TESTING due on 10/03/2027 HPV TESTING due on 10/03/2027 COLORECTAL CANCER SCREENING due on 08/13/2029 INFLUENZA Completed HEPATITIS C SCREENING Completed HIV SCREENING Completed SHINGRIX VACCINE Completed COVID-19 VACCINE Discontinued Data reviewed none ASSESSMENT/PLAN: 1. Prediabetes - ICD9: 790.29, ICD10: R73.03 (primary diagnosis) Recommend GLP-1 medication to help control blood sugar and aid in weight loss - OZEMPIC 0.25 MG OR 0.5 MG (2 MG/1.5 ML) SUBCUTANEOUS PEN INJECTOR 2. Obesity, Class II, BMI 35-39.9 - ICD9: 278.00, ICD10: E66.9 - OZEMPIC 0.25 MG OR 0.5 MG (2 MG/1.5 ML) SUBCUTANEOUS PEN INJECTOR Follow up in 1 month Pedro Pulido MD documented in this encounter [facility] 11-12-2022 History of Present illness Narrative Patient fasting for 3 hours:Yes Any implanted devices:No Possibility of :No/ N/A Fibroscan was performed on November 12, 2022, by America Hughes RN and results are interpreted Sarita Patel APRN.CNP Diagnosis: Increase in hepatic echogenicity (fatty liver)/Abnormal US (ultrasound) of abdomen Please refer to get images report for individual readings Number of readings: 10 IQR: 26% E (kpa): 4.7 CAP: 342 Impression The reading was adequate, and corresponds to Fibrosis stage F0 and steatosis grade of S3. Sarita Patel APRN.CNP Grade CAP value up to 237 dB/M corresponds to S0 (< 10 % Fat) CAP value between (238 - 258 dB/M) corresponds to S1 (>/= 11 % Fat) CAP value between (259 - 289 dB/M) corresponds to S2 (>/= 33 % Fat) CAP value > 290dB/M corresponds to S3 (>/= 67 % Fat) stage 0 ( S0:< 10 % steatosis) stage 1 (>/= S1: 11%-33% steatosis) stage 2 (>/= S2: 34%-66% steatosis) stage 3 (>/= S3: > 66% steatosis) Int J Clin Exp Med. 2015; 8(10): 35365-84087. documented in this encounter [facility] 10-31-2022 History of Present illness Narrative Radiology Service Progress Note PATIENT NAME: Chanda Haq DATE OF SERVICE: October 31, 2022 TIME: 10:53 AM PATIENT IDENTITY VERIFICATION COMPLETED USING TWO (2) IDENTIFIERS: Name and Date of confirmed by patient verbally. FALL SCREENING: Has the patient had 2 falls in the last year or 1 fall with injury or currently using an Ambulatory Assistive Device (Walker, Cane, Wheelchair, Crutches, etc.)? Yes, Patient High Risk for Falls What interventions were put in place to prevent falls during this visit? Instructed Patient to Call for Help if Needed, Offered Assistance with Transfers/Clothing, Instructed Patient to Remain Seated (Not on Exam Table) Until Exam, and Increased Observations by Caregivers PATIENT GENDER DATA: Female. status: : No status: NO. PATIENT RELEVANT IMPLANT DATA REVIEWED: Not Applicable RADIOLOGY DEPARTMENT: Ultrasound PERIPHERAL IV DATA: Not applicable SIGNED BY: Ana Farley RDMS [facility] October 31, 2022 10:53 AM documented in this encounter [facility] 10-29-2022 History of Present illness Narrative Radiology Service Progress Note PATIENT NAME: Chanda Haq DATE OF SERVICE: October 29, 2022 TIME: 3:56 PM PATIENT IDENTITY VERIFICATION COMPLETED USING TWO (2) IDENTIFIERS: Name and Date of confirmed by patient verbally. FALL SCREENING: Has the patient had 2 falls in the last year or 1 fall with injury or currently using an Ambulatory Assistive Device (Walker, Cane, Wheelchair, Crutches, etc.)? Yes, Patient High Risk for Falls What interventions were put in place to prevent falls during this visit? Increased Observations by Caregivers PATIENT GENDER DATA: Female. status: : No status: N/A PATIENT RELEVANT IMPLANT DATA REVIEWED: Not Applicable RADIOLOGY DEPARTMENT: General X-ray: Exam(s) Completed: Lower Extremity X-Ray(s): Foot, Left, NON WT BEARING, PT IN WC. PERIPHERAL IV DATA: Not applicable SIGNED BY: RT Néstor(R) October 29, 2022 3:56 PM documented in this encounter [facility] 10-29-2022 Janae Hallman - 10/29/2022 2:26 PM EST Continue with boot Get xrays. If xrays show stress fracture, will continue- with boot If xrays show no fracture, could consider sneaker with insert Powerstep Original Full length. Can purchase at [employer] here in [place], [employer] in [place] or [place]. Also can find in [place] in [facility]. Powersteps can also be purchased online, starting around $25.00 If you have a metatarsal or dancer pad for your feet apply the pad directly to the insole so you can interchange between your shoes. Find a shoe with a removable insole and take this out and replace with your powerstep insole. Always bring powersteps with you when shopping for shoes so that you can make sure that everything fits well together documented in this encounter [facility] 10-29-2022 History of Present illness Narrative FOLLOW UP PODIATRIC OFFICE VISIT Chief Complaint: This 62 year old who presents for follow up:left foot pain Patient presents to clinic for follow-up left 2nd metatarsal pain Patient has been using boot and has no pain. She does report however if she goes without the boot, she still has pain She has no other complaints PAIN EVALUATION No data found in the last 1 encounters. Hemoglobin A1C Date Value Ref Range Status 09/07/2022 6.2 (H) 4.3 - 5.6 % Final Comment: [place] [employer] guidelines indicate that patients with HgbA1c in the range 5.7-6.4% are at increased risk for development of diabetes, and intervention by lifestyle modification may be beneficial. HgbA1c greater or equal to 6.5% is considered diagnostic of diabetes. PCP: Kyle Sylvester MD PAST MEDICAL HISTORY Diagnosis Date Acquired hypothyroidism 08/22/2015 ACUTE GASTRITIS W/O HEMORRHAGE 02/05/2006 Anxiety and depression 10/05/2020 Arthritis 05/18/2020 Arthritis of lumbar spine 03/05/2022 Mod Arthritis of right foot 09/02/2018 At high risk for falls 09/02/2018 Backache, unspecified 01/11/2013 Bilateral carotid artery stenosis 09/25/202009/2020 20-40% bilaterally Bipolar I disorder (HCC) 12/20/2005 Seeds Stinger at [facility] Cervical disc disorder with radiculopathy 09/27/2021 Cervical radiculopathy 09/19/2021 Cervical spondylosis 09/19/2021 Seeing pain management Cervical spondylosis without myelopathy 09/27/2021 Cervical stenosis of spinal canal 09/19/2021 Chronic pain of left knee 06/19/2019 Class 1 obesity due to excess calories without serious comorbidity with body mass index (BMI) of 33.0 to 33.9 in adult 03/03/2018 Current use of proton pump inhibitor 03/03/2018 Diaphragmatic hernia without mention of obstruction or gangrene 02/05/2006 Elevated hemoglobin A1c 06/29/2018 Encounter for screening mammogram for breast cancer 03/05/2019 Ex-smoker 08/22/2015 Started at age 14 and has smoked up to 1/2 a PPD, quit 12/2017 External hemorrhoids without mention of complication Gastroesophageal reflux disease with esophagitis 08/22/2015 Hearing loss Hearing aids in both ears. History of transient ischemic attack (TIA) 11/05/2019 Incontinence 02/20/[address] Jordan Irritable bowel syndrome with constipation 03/03/2018 Lactose intolerance 03/05/2019 Lung nodules 12/11/2017 CT 12/11/[address] 05/2018 stable needs repeat in 2 yrs Medicare annual wellness visit, subsequent 03/03/2018 Medicare Part B: 06/17/2001 last done: 03/05/2019 Migraine without aura and without status migrainosus, not intractable 05/22/2016 Mixed hyperlipidemia 08/22/2015 JORDAN (obstructive sleep apnea) 09/02/2018 DME DASCO Osteopenia of lumbar spine 11/27/2020 Borderline on DXA 11/2020 Other constipation 07/21/2019 Overactive bladder 05/30/2015 Primary insomnia 07/30/2018 Primary osteoarthritis of left knee 11/05/2019 RLS (restless legs syndrome) 06/04/2019 S/P total knee arthroplasty, left 10/18/2020 Smoker 08/22/2015 Started at age 14 and has smoked up to 1/2 a PPD, quit 12/2017 Thoracic arthritis 03/05/2022 Mild Vitamin D deficiency 01/25/2020 Current Outpatient Medications Medication Sig ARIPiprazole (ABILIFY) 15 mg tablet Take 15 mg by mouth once daily. polyethylene glycol 3350 (MIRALAX) 17 gram/dose powder Take 17 g by mouth once daily. Dissolve dose in 4 - 8 ounces of liquid and take as directed. pantoprazole DR (PROTONIX) 40 mg tablet Take 1 tablet by mouth twice daily. Take on empty stomach, 1/2 hr before meal. topiramate (TOPAMAX) 100 mg tablet Take 1 tablet by mouth twice daily. rimegepant (NURTEC ODT) 75 mg disintegrating tablet Take 1 tablet by mouth once daily as needed. tiZANidine (ZANAFLEX) 4 mg tablet TAKE 1 PILL UP TO 3 TIMES PER DAY NEEDED FOR PAINFUL MUSCLE SPASMS gabapentin (NEURONTIN) 400 mg capsule Take 1 capsule by mouth three times daily for 180 days. sucralfate (CARAFATE) 1 gram tablet Take 1 tablet by mouth daily at bedtime. rOPINIRole (REQUIP) 1 mg tablet Take one tab by mouth before bed. rosuvastatin (CRESTOR) 40 mg tablet Take 1 tablet by mouth daily at bedtime. metFORMIN ER (GLUCOPHAGE XR) 500 mg 24 hr tablet Take 1 tablet by mouth daily with breakfast. ergocalciferol 50,000 unit capsule (VITAMIN D2, DRISDOL) Take one capsule twice a week (Fri and ) amitriptyline (ELAVIL) 25 mg tablet Take 1 tablet by mouth daily at bedtime. ondansetron orally disintegrating (ZOFRAN ODT) 4 mg disintegrating tablet Take 1 tablet by mouth every 8 hours as needed for nausea/vomiting. levothyroxine (SYNTHROID) 137 mcg tablet Take one daily and two on Friday. Fenofibrate (LOFIBRA) 54 mg tablet Take 1 tablet by mouth once daily. aspirin, enteric coated (ASPIRIN, ENTERIC COATED) 81 mg EC tablet Take 81 mg by mouth once daily. famotidine (PEPCID) 40 mg tablet Take 1 tablet by mouth daily before dinner. ezetimibe (ZETIA) 10 mg tablet Take 1 tablet by mouth once daily. cyanocobalamin (VITAMIN B-12) 1,000 mcg tab Take 1 tablet by mouth once daily. CPAP Mask fitting and 30 day download for autopap 10 -20 cm H2O & formal mask refitting for medical necessity & schedule with the RT, chin strap, head gear, humidity, heated tubing (SACHI), lifetime supplies. G47.33 JORDAN albuterol HFA (PROVENTIL HFA, VENTOLIN HFA) 90 mcg/actuation inhaler Inhale 2 Puffs as instructed every 4 hours as needed for wheezing/shortness of breath. blood sugar diagnostic (BLOOD GLUCOSE TEST) test strip Test blood sugar(s) 1 times daily. Dx: Other DM Code R73.03 Insulin: No Lancets lancets Test blood sugar(s) 1 times daily. Dx: Other DM Code R73.03 Insulin: No lactase (LACTAID) 3,000 unit tablet Take 1 tablet by mouth three times daily with meals. acetaminophen (TYLENOL ARTHRITIS ORAL) Take 650 mg by mouth every 8 hours as needed. [place]-3 Fatty Acids 100 mg chew [place]-3 Fatty Acids [place]-3 Fatty Acids Active 2000 MG DAILY November 21, 2016 10:19am 11-21-2016 [facility] ([id number]) Lactobacillus acidophilus (FLORAJEN) 460 mg (20 billion cell) cap Take 1 capsule by mouth once daily. COMPOUNDED PRESCRIPTION Wheeled rolator walker with ahnd breaks and seat, # 1, Dx:M19.071, Z91.071 DULoxetine (CYMBALTA) 30 mg capsule Take 1 capsule by mouth once daily. [facility] No current facility-administered medications for this visit. ALLERGIES Allergen Reactions Ditropan [Oxybutyni* Other: See Comments Nausea,vomiting Benztropine Other: See Comments, Unknown Oxybutynin Other: See Comments Oxycodone GI Upset, Unknown Cogentin [Benztropi* Other: See Comments Blurred vision Depakote [Divalproe* GI Upset Flagyl [Metronidazo* GI Upset Nausea and vomiting Ibuprofen GI Upset Nexium [Esomeprazol* Unknown Percocet [Oxycodone* Other: See Comments Nausea, RDZ, eye swelling Tylenol [Acetaminop* GI Upset diarrhea with high doses PAST SURGICAL HISTORY Procedure Laterality Date ARTHROSCOPY KNEE DIAGNOSTIC W/WO SYNOVIAL BX SPX Arthroscopy, knee, Left ARTHRS KNE SURG W/MENISCECTOMY MED/LAT W/SHVG Left 12/01/2019 COLONOSCOPY 08/11/2019 one polyp, repeat 10 yrs COLONOSCOPY FLX DX W/COLLJ SPEC WHEN PFRMD 02/28/2009 COLONOSCOPY FLX DX W/COLLJ SPEC WHEN PFRMD 02/04/2018 Colonoscopy EGD 03/24/2018 Dr. Garcia reported as normal. Neg for Hpylori and celiac. ESOPHAGOGASTRODUODENOSCOPY TRANSORAL DIAGNOSTIC 02/05/2006 EGD ESOPHAGOGASTRODUODENOSCOPY TRANSORAL DIAGNOSTIC 12/21/2014 EGD ESOPHAGOGASTRODUODENOSCOPY TRANSORAL DIAGNOSTIC 03/29/2015 EGD EXC/DSTRJ LINGUAL TONSIL ANY METHOD SPX remote FECAL OCCULT BLOOD TEST 12/19/2016 negative PAST SURGICAL HISTORY OF 10/05/2015 TOT monarc sling PAST SURGICAL HISTORY OF 10/05/2015 Cystourethroscopy PAST SURGICAL HISTORY OF Left 05/03/2016 ulnar nerve decompression STRESS TEST 12/10/2016 normal TOTAL KNEE REPLACEMENT Left 10/18/2020 Left Total knee arthrosplasty Physical Exam: OBJECTIVE: Constitutional: Pt is a well developed 62 year old female who is alert, oriented, cooperative and in no apparent distress. Eyes: Following during examination. No redness or drainage. Respiratory: RR normal and nonlabored. Even breathing. No evidence of distress. Psychology: Patient is engaged during conversation. Normal affect and mood. Does not appear depressed or anxious. NVSI unchanged from previous visit. Dermatological: Nails 1-5 b/l are normal. Webspaces clean and dry 1-4 b/l. Skin appears well hydrated and supple. good color, texture, turgor. No open lesions present. No callosities present. Musculoskeletal/Orthopaedic: Patient has pain to palpation of left 2nd metatarsal Past xrays negative for fracture ASSESSMENT: (X50.3XXA) Repetitive stress injury (primary encounter diagnosis) PLAN: Patient still has pain in left foot. Continue with boot and repeat xrays. If xrays prove to be negative for stress fracture, will allow her to wear shoe with insert Will notify patient of xrays Shashi Hallman DPM Patient presents with: Left Foot - Follow Up, Pain Patient continues boot. Denies pain when she is wearing boot. documented in this encounter [facility] 10-28-2022 Instructions Lizz Riggs PA-C - 10/28/2022 1:13 PM EST Images from the original note were not included. Recommend high protein, high fiber diet. Promotion of salivation through oral lozenges/chewing gum Drink plenty of water Avoid NSAIDs (such as Advil, Ibuprofen, Excedrin, Mobic), tobacco, alcohol, carbonated beverages, caffeine, chocolate, tomato based sauces, spicy/fatty foods, and peppermint Avoid eating less than 3 hours before bed. Elevate the head of the bed 6 inches, or invest in a wedge pillow. Laying on left side with head elevated may help alleviate reflux symptoms. Bowel Preparation Instructions for: Miralax-Gatorade Preparations IF YOU DO NOT FOLLOW THESE DIRECTIONS, YOUR COLONOSCOPY WILL BE CANCELLED. Ceja Instructions: Your bowel must be empty so that your doctor can clearly view your colon. Follow all of the instructions in this handout EXACTLY as they are written. Do NOT eat any solid food the ENTIRE day before your colonoscopy. Buy your bowel preparation at least 5 days before your colonoscopy. Four (4) Dulcolax laxative tablets containing 5mg of bisacodyl each (NOT Dulcolax stool softener) One (1) 8.3oz. bottle Miralax (238 grams) or generic equivalent 2 x 32oz. Bottles of Gatorade (NOT RED) Diabetic Patients: Use G2 (Gatorade 2) TRANSPORTATION on the Day of Your Exam A responsible adult MUST be present with you at Check In prior to your colonoscopy and REMAIN in the endoscopy area until you are discharged. You are NOT ALLOWED to drive, take a taxi or bus, or leave the Endoscopy Center ALONE. If you do not have a responsible delivery truck driver heavy (family member or friend) with you to take you home, your exam cannot be done with sedation and will be cancelled. Please bring a list of all of your current medications, including any Pxeb-sgx-Lkaqaje medications with you. Medications If you take insulin, diabetic medications or blood thinners such as Coumadin (warfarin), Plavix (clopidogrel), Ticlid (ticlopidine hydrochloride), Agrylin (anagrelide), Xarelto (Rivaroxaban), Pradaxa (Dabigatran), Eliquis (Apixaban), and Effient (Prasugrel). You MUST call the doctors who orders those medicines for instructions on altering the dosage before your colonoscopy. All other medications should be taken the day of the exam with a sip of water including ASPIRIN. Five (5) Days Before Your Colonoscopy Do NOT take medicines that stop diarrhea - such as Imodium, Kaopectate, or Pepto Bismol. Do NOT take fiber supplements - such as Metamucil, Citrucel, or Perdiem. Do NOT take products that contain iron - such as multi-vitamins (the label lists what is in the products). Three (3) Days Before Your Colonoscopy Do NOT eat high-fiber foods - such as popcorn, beans, seeds (flax, sunflower, quinoa), multigrain bread, nuts, salad/vegetables, or fresh and dried fruit. 1 Bowel Preparation Instructions for: Miralax-Gatorade Preparations One (1) Day Before Your Colonoscopy Only drink clear liquids the ENTIRE DAY before your colonoscopy. Do NOT eat any solid foods. Drink at least 8 ounces of clear liquids every hour after waking up. The clear liquids you can drink include: Clear Liquid (NO RED LIQUIDS) DO NOT DRINK Gatorade, Pedialyte or Powerade Clear broth or bouillon Coffee or tea (no milk or non-dairy creamer) Carbonated and non-carbonated soft drinks Jay-Aid or other fruit flavored drinks Strained fruit juices (no pulp) Jell-O, popsicles, hard candy Water Alcohol Milk or non-dairy creamers Noodles or vegetables in soup Juice with pulp Liquid you cannot see through Do not use tobacco/vaping products Mix 1/2 of Miralax bottle (119 grams) in each 32 ounces of Gatorade bottle until dissolved. Keep cool in the refrigerator. DO NOT ADD ICE. The bowel preparation solution will be consumed in two parts. Part 1 5:00 PM - Evening before your colonoscopy Take 4 Dulcolax tablets. 6 PM - Evening before your colonoscopy Drink 32 oz. of the mixed solution. Drink an 8 oz. glass of bowel preparation every 15 minutes for a total of 4 glasses. Fifteen (15) minutes later, drink an 8 oz. glass of of clear liquids every 15 minutes for a total of 2 glasses. You may continue to drink clear liquids till midnight. Part 2 On the day of your colonoscopy you may drink clear liquids up to (three) 3 hours prior to procedure. 4 1/2 hours before your colonoscopy Take another 32 oz. bottle of mixed solution. Drink an 8 oz. glass of bowel prep every 15 minutes for a total of 4 glasses. Fifteen (15) minutes later, drink an 8 oz. glass of clear liquids every 15 minutes for a total of 2 glasses. You may continue to drink clear liquids up to (three) 3 hours before your exam. 2 10/2019 documented in this encounter [facility] 10-28-2022 History of Present illness Narrative CHIEF COMPLAINT: Patient presents with: GERD Irritable Bowel Syndrome HPI: Chanda Haq is a 62 year old female who presents for GERD and Irritable Bowel Syndrome. Admits to chronic sx of GERD, altered bowels. Includes sx of GERD worsened a few mos ago. On Protonix 40 mg daily, carafate, Pepcid daily with minimal relief. Was previously vomiting 3-4x per week, worse when bending over, taking too many medications at a time. Abd pain is in epigastric region, worsens when eating, improves with BM. Bms are small at a time, multiple per day, no blood. Takes stool softeners without improvement. Denies unintentional weight loss, regular NSAIDs. Colon 2018 CONVERTED FINAL DIAGNOSIS 1. Colon, random, biopsy (A) - Colonic mucosa with no diagnostic alteration. 2. Colon, right, polypectomy (B) - Tubular adenoma. KL/dss 02/05/2018 EGD 2014 1. Antrum, biopsy (A) - Reactive gastropathy. - No morphologic evidence of Helicobacter pylori micro-organisms. 2. Esophagus, at 39 cm, biopsy (B) - Minimally inflamed cardia-type mucosa and slightly hyperplastic squamous epithelium. - No evidence of intestinal metaplasia or dysplasia. DSA/jw 03-30-[address] Garcia reported normal, negative for Celiac/H. Pylori Component Latest Ref Rng & Units 09/07/2022 WBC 3.70 - 11.00 k/uL 5.55 RBC 3.90 - 5.20 m/uL 4.50 Hemoglobin 11.5 - 15.5 g/dL 12.6 Hematocrit 36.0 - 46.0 % 41.1 MCV 80.0 - 100.0 fL 91.3 MCH 26.0 - 34.0 pg 28.0 MCHC 30.5 - 36.0 g/dL 30.7 RDW-CV 11.5 - 15.0 % 14.6 Platelet Count 150 - 400 k/uL 378 MPV 9.0 - 12.7 fL 10.8 Neut% % 49.9 Abs Neut (ANC) 1.45 - 7.50 k/uL 2.77 Lymph% % 39.6 Abs Lymph 1.00 - 4.00 k/uL 2.20 Josephine% % 7.6 Abs Josephine <0.87 k/uL 0.42 Eosin% % 2.0 Abs Eosin <0.46 k/uL 0.11 Baso% % 0.7 Abs Baso <0.11 k/uL 0.04 Immature Gran % % 0.2 IMMATURE GRANS (ABS) <0.10 k/uL <0.03 NRBC /100 WBC 0.0 Absolute nRBC <0.01 k/uL <0.01 DTYPE Auto Protein, Total 6.3 - 8.0 g/dL 7.6 Albumin 3.9 - 4.9 g/dL 4.6 Calcium 8.5 - 10.2 mg/dL 10.1 Bilirubin, Total 0.2 - 1.3 mg/dL 0.2 Alkaline Phosphatase 34 - 123 U/L 67 AST 13 - 35 U/L 20 ALT 7 - 38 U/L 10 Glucose 74 - 99 mg/dL 94 BUN 7 - 21 mg/dL 15 Creatinine 0.58 - 0.96 mg/dL 0.94 Sodium 136 - 144 mmol/L 140 Potassium 3.7 - 5.1 mmol/L 4.1 Chloride 97 - 105 mmol/L 106 (H) CO2 22 - 30 mmol/L 25 Anion Gap 9 - 18 mmol/L 9 eGFR >=60 mL/min/1.73m 68 TSH 0.270 - 4.200 mIU/L 4.670 (H) Record Review: [facility] / Outside records reviewed. PAST MEDICAL HISTORY Diagnosis Date Acquired hypothyroidism 08/22/2015 ACUTE GASTRITIS W/O HEMORRHAGE 02/05/2006 Anxiety and depression 10/05/2020 Arthritis 05/18/2020 Arthritis of lumbar spine 03/05/2022 Mod Arthritis of right foot 09/02/2018 At high risk for falls 09/02/2018 Backache, unspecified 01/11/2013 Bilateral carotid artery stenosis 09/25/202009/2020 20-40% bilaterally Bipolar I disorder (HCC) 12/20/2005 Seeds Stinger at [facility] Cervical disc disorder with radiculopathy 09/27/2021 Cervical radiculopathy 09/19/2021 Cervical spondylosis 09/19/2021 Seeing pain management Cervical spondylosis without myelopathy 09/27/2021 Cervical stenosis of spinal canal 09/19/2021 Chronic pain of left knee 06/19/2019 Class 1 obesity due to excess calories without serious comorbidity with body mass index (BMI) of 33.0 to 33.9 in adult 03/03/2018 Current use of proton pump inhibitor 03/03/2018 Diaphragmatic hernia without mention of obstruction or gangrene 02/05/2006 Elevated hemoglobin A1c 06/29/2018 Encounter for screening mammogram for breast cancer 03/05/2019 Ex-smoker 08/22/2015 Started at age 14 and has smoked up to 1/2 a PPD, quit 12/2017 External hemorrhoids without mention of complication Gastroesophageal reflux disease with esophagitis 08/22/2015 Hearing loss Hearing aids in both ears. History of transient ischemic attack (TIA) 11/05/2019 Incontinence 02/20/[address] Jordan Irritable bowel syndrome with constipation 03/03/2018 Lactose intolerance 03/05/2019 Lung nodules 12/11/2017 CT 12/11/[address] 05/2018 stable needs repeat in 2 yrs Medicare annual wellness visit, subsequent 03/03/2018 Medicare Part B: 06/17/2001 last done: 03/05/2019 Migraine without aura and without status migrainosus, not intractable 05/22/2016 Mixed hyperlipidemia 08/22/2015 JORDAN (obstructive sleep apnea) 09/02/2018 DME DASCO Osteopenia of lumbar spine 11/27/2020 Borderline on DXA 11/2020 Other constipation 07/21/2019 Overactive bladder 05/30/2015 Primary insomnia 07/30/2018 Primary osteoarthritis of left knee 11/05/2019 RLS (restless legs syndrome) 06/04/2019 S/P total knee arthroplasty, left 10/18/2020 Smoker 08/22/2015 Started at age 14 and has smoked up to 1/2 a PPD, quit 12/2017 Thoracic arthritis 03/05/2022 Mild Vitamin D deficiency 01/25/2020 PAST SURGICAL HISTORY Procedure Laterality Date ARTHROSCOPY KNEE DIAGNOSTIC W/WO SYNOVIAL BX SPX 1990s Arthroscopy, knee, Left ARTHRS KNE SURG W/MENISCECTOMY MED/LAT W/SHVG Left 12/01/2019 COLONOSCOPY 08/11/2019 one polyp, repeat 10 yrs COLONOSCOPY FLX DX W/COLLJ SPEC WHEN PFRMD 02/28/2009 COLONOSCOPY FLX DX W/COLLJ SPEC WHEN PFRMD 02/04/2018 Colonoscopy EGD 03/24/2018 Dr. Garcia reported as normal. Neg for Hpylori and celiac. ESOPHAGOGASTRODUODENOSCOPY TRANSORAL DIAGNOSTIC 02/05/2006 EGD ESOPHAGOGASTRODUODENOSCOPY TRANSORAL DIAGNOSTIC 12/21/2014 EGD ESOPHAGOGASTRODUODENOSCOPY TRANSORAL DIAGNOSTIC 03/29/2015 EGD EXC/DSTRJ LINGUAL TONSIL ANY METHOD SPX remote FECAL OCCULT BLOOD TEST 12/19/2016 negative PAST SURGICAL HISTORY OF 10/05/2015 TOT monarc sling PAST SURGICAL HISTORY OF 10/05/2015 Cystourethroscopy PAST SURGICAL HISTORY OF Left 05/03/2016 ulnar nerve decompression STRESS TEST 12/10/2016 normal TOTAL KNEE REPLACEMENT Left 10/18/2020 Left Total knee arthrosplasty Allergies: ALLERGIES Allergen Reactions Ditropan [Oxybutyni* Other: See Comments Nausea,vomiting Benztropine Other: See Comments, Unknown Oxybutynin Other: See Comments Oxycodone GI Upset, Unknown Cogentin [Benztropi* Other: See Comments Blurred vision Depakote [Divalproe* GI Upset Flagyl [Metronidazo* GI Upset Nausea and vomiting Ibuprofen GI Upset Nexium [Esomeprazol* Unknown Percocet [Oxycodone* Other: See Comments Nausea, RDZ, eye swelling Tylenol [Acetaminop* GI Upset diarrhea with high doses Medications: ARIPiprazole (ABILIFY) 15 mg tablet Take 15 mg by mouth once daily. topiramate (TOPAMAX) 100 mg tablet Take 1 tablet by mouth twice daily. rimegepant (NURTEC ODT) 75 mg disintegrating tablet Take 1 tablet by mouth once daily as needed. tiZANidine (ZANAFLEX) 4 mg tablet TAKE 1 PILL UP TO 3 TIMES PER DAY NEEDED FOR PAINFUL MUSCLE SPASMS gabapentin (NEURONTIN) 400 mg capsule Take 1 capsule by mouth three times daily for 180 days. sucralfate (CARAFATE) 1 gram tablet Take 1 tablet by mouth daily at bedtime. rOPINIRole (REQUIP) 1 mg tablet Take one tab by mouth before bed. pantoprazole DR (PROTONIX) 40 mg tablet Take 1 tablet by mouth daily before breakfast. Take on empty stomach, 1/2 hr before meal. rosuvastatin (CRESTOR) 40 mg tablet Take 1 tablet by mouth daily at bedtime. metFORMIN ER (GLUCOPHAGE XR) 500 mg 24 hr tablet Take 1 tablet by mouth daily with breakfast. ergocalciferol 50,000 unit capsule (VITAMIN D2, DRISDOL) Take one capsule twice a week (Fri and ) amitriptyline (ELAVIL) 25 mg tablet Take 1 tablet by mouth daily at bedtime. ondansetron orally disintegrating (ZOFRAN ODT) 4 mg disintegrating tablet Take 1 tablet by mouth every 8 hours as needed for nausea/vomiting. levothyroxine (SYNTHROID) 137 mcg tablet Take one daily and two on Friday. Fenofibrate (LOFIBRA) 54 mg tablet Take 1 tablet by mouth once daily. aspirin, enteric coated (ASPIRIN, ENTERIC COATED) 81 mg EC tablet Take 81 mg by mouth once daily. famotidine (PEPCID) 40 mg tablet Take 1 tablet by mouth daily before dinner. ezetimibe (ZETIA) 10 mg tablet Take 1 tablet by mouth once daily. cyanocobalamin (VITAMIN B-12) 1,000 mcg tab Take 1 tablet by mouth once daily. CPAP Mask fitting and 30 day download for autopap 10 -20 cm H2O & formal mask refitting for medical necessity & schedule with the RT, chin strap, head gear, humidity, heated tubing (SACHI), lifetime supplies. G47.33 JORDAN albuterol HFA (PROVENTIL HFA, VENTOLIN HFA) 90 mcg/actuation inhaler Inhale 2 Puffs as instructed every 4 hours as needed for wheezing/shortness of breath. blood sugar diagnostic (BLOOD GLUCOSE TEST) test strip Test blood sugar(s) 1 times daily. Dx: Other DM Code R73.03 Insulin: No Lancets lancets Test blood sugar(s) 1 times daily. Dx: Other DM Code R73.03 Insulin: No lactase (LACTAID) 3,000 unit tablet Take 1 tablet by mouth three times daily with meals. acetaminophen (TYLENOL ARTHRITIS ORAL) Take 650 mg by mouth every 8 hours as needed. [place]-3 Fatty Acids 100 mg chew [place]-3 Fatty Acids [place]-3 Fatty Acids Active 2000 MG DAILY November 21, 2016 10:19am 11-21-2016 [facility] ([id number]) Lactobacillus acidophilus (FLORAJEN) 460 mg (20 billion cell) cap Take 1 capsule by mouth once daily. COMPOUNDED PRESCRIPTION Wheeled rolator walker with ahnd breaks and seat, # 1, Dx:M19.071, Z91.071 DULoxetine (CYMBALTA) 30 mg capsule Take 1 capsule by mouth once daily. [facility] FAMILY HISTORY Problem Relation Age of Onset Cancer Mother Hysterectomy Alcohol/Drug Father Alcoholic other (Leukemia) Sister shortly after Heart Attack Brother x 2 Diabetes Brother Heart Maternal Grandmother Hearing Loss Maternal Grandmother Headache Maternal Grandmother Diabetes Maternal Grandmother Stroke Maternal Grandmother Heart Maternal Grandfather Diabetes Maternal Grandfather No Known Problems Paternal Grandmother No Known Problems Paternal Grandfather Coronary Artery Disease Son Hyperlipidemia Son Hypertension Son Hyperlipidemia Son No Known Problems Son Colon Cancer No Family History Employer And Job Title: No employer specified (Disability) Years Of Education Completed: Not specified Marital Status: to Jere with 3 children Social History Tobacco Use Smoking status: Former Types: Cigarettes Quit date: 01/07/2018 Years since quittin.8 Smokeless tobacco: Never Tobacco comments: used welbutrin Vaping Use Vaping Use: Never used Substance Use Topics Alcohol use: No Drug use: No Review of Systems: Review of Systems Gastrointestinal: Positive for abdominal distention, abdominal pain, constipation and diarrhea. Gas All other systems reviewed and are negative. Are you taking any blood thinners? No Physical Examination: BP 108/70 Pulse 64 Ht 161 cm (5' 3.39 ) BMI 35.87 kg/m Physical Exam Constitutional: General: She is not in acute distress. Appearance: Normal appearance. She is normal weight. She is not ill-appearing, toxic-appearing or diaphoretic. HENT: Head: Normocephalic and atraumatic. Nose: Nose normal. Eyes: General: No scleral icterus. Right eye: No discharge. Left eye: No discharge. Extraocular Movements: Extraocular movements intact. Conjunctiva/sclera: Conjunctivae normal. Pupils: Pupils are equal, round, and reactive to light. Cardiovascular: Rate and Rhythm: Normal rate and regular rhythm. Pulses: Normal pulses. Heart sounds: Normal heart sounds. No murmur heard. No friction rub. No gallop. Pulmonary: Effort: No respiratory distress. Breath sounds: Normal breath sounds. No stridor. No wheezing, rhonchi or rales. Chest: Chest wall: No tenderness. Abdominal: General: Abdomen is flat. Bowel sounds are normal. There is distension. Palpations: Abdomen is soft. There is no mass. Tenderness: There is no abdominal tenderness. There is no right CVA tenderness, left CVA tenderness, guarding or rebound. Hernia: No hernia is present. Musculoskeletal: General: Normal range of motion. Cervical back: Normal range of motion and neck supple. Comments: Ambulates with cane. Skin: General: Skin is warm and dry. Neurological: General: No focal deficit present. Mental Status: She is alert and oriented to person, place, and time. Psychiatric: Mood and Affect: Mood normal. Behavior: Behavior normal. Assessment/Plan (K21.9) Gastroesophageal reflux disease, unspecified whether esophagitis present (primary encounter diagnosis) (R11.2) Nausea and vomiting, unspecified vomiting type (K58.1) Irritable bowel syndrome with constipation (Z86.010) History of colonic polyps 1. GERD - EGD DIAGNOSTIC; Future - pantoprazole DR (PROTONIX) 40 mg tablet; Take 1 tablet by mouth twice daily. Take on empty stomach, 1/2 hr before meal. Dispense: 180 tablet; Refill: 2 - Increase Protonix to 40 mg BID, continue Pepcid HS, carafate BID-QID - EGD to assess GERD status, r/o Edward's, PUD - Discussed GERD precautions - Consider CT abd after endoscopic evaluation if persistent bloating and no improvement with bowel regimen/scopes unremarkable Recommend high protein, high fiber diet. Promotion of salivation through oral lozenges/chewing gum Drink plenty of water Avoid NSAIDs (such as Advil, Ibuprofen, Excedrin, Mobic), tobacco, alcohol, carbonated beverages, caffeine, chocolate, tomato based sauces, spicy/fatty foods, and peppermint Avoid eating less than 3 hours before bed. Elevate the head of the bed 6 inches, or invest in a wedge pillow. Laying on left side with head elevated may help alleviate reflux symptoms. 2. Nausea and vomiting, unspecified vomiting type - US ABD RT UPPER QUADRANT; Future - Taking Zofran PRN with relief - Advised RUQ US to r/o biliary disease 3. Irritable bowel syndrome with constipation - polyethylene glycol 3350 (MIRALAX) 17 gram/dose powder; Take 17 g by mouth once daily. Dissolve dose in 4 - 8 ounces of liquid and take as directed. Dispense: 765 g; Refill: 1 - No relief with stool softeners - Start Miralax full cap daily, reduce usage if diarrhea occurs - Drink plenty of fluids 4. History of colonic polyps - COLONOSCOPY SCREENING; Future I spent a total of 30 minutes on the date of the service which included preparing to see the patient, [id number] patient care, completing clinical documentation, obtaining and/or reviewing separately obtained history, performing a medically appropriate examination, counseling and educating the patient/family/caregiver, ordering medications, tests, or procedures, communicating with other HCPs (not separately reported), independently interpreting results (not separately reported), communicating results to the patient/family/caregiver, and care coordination (not separately reported). Lizz Riggs PA-C October 28, 2022 1:18 PM documented in this encounter [facility] 10-24-2022 Miscellaneous Notes Patient notified by phone and advised to machine operator hop picker from [facility] letter is ready and at medical records for machine operator hop picker Sarah Acosta Letter printed and ready for patient to machine operator hop picker. documented in this encounter [facility] 10-22-2022 Miscellaneous Notes Patient called stating she received lab orders in the mail and she wanted to know if they were for standing labs. Patient states she went and had the lab work that was ordered at her last visit. Does she need standing labs? Patient would like to know if she needs to get labs before her next visit. Confirmed with patient, see below: 01/27/2023 10:00 AM MD FLORESITA Garay [facility] Elaine Culver LPN documented in this encounter [facility] 10-22-2022 Miscellaneous Notes Called [facility] community plan (Reference #[id number]) [facility] Winkler rep[facility] needs to be completed via phone through pharmacy dept. Transferred. EPA not available. Spoke with KURT Duckworth rep. Gautam PA submitted over the phone. PA approved Sep 22 2022- Nov 16, 2023. Reference # PA- [id number] Called pt to notify. Pt acknowledged. Enc calling pharmacy to make sure med available before picking up. Instructed to schedule f/u appt to discuss how well medication working before reorder needed. Pt agreed. Pt stated will f/u as needed. Catherine Han RN Patient called in about the Pre authorization on the medication Nertec. Pt wanted to know what the progress was on it and how long it was going to take. She states she was told not to take Imitrex, but she doesn't know how long she could hold out. She wanted to know if the provider could authorize the Nertec for her to take. It does not look like this providers office was the one working on the Nertec, so will also route to Gogo Lowery NP. documented in this encounter [facility] 10-18-2022 Miscellaneous Notes Prior Authorization for Medications Requested by : Insurance Callback # : [phone](patient) Name of Medication : Nertec Dose : 75 mg Insurance Provider : [facility] MEDICARE Insurance Phone : N/A ID : [id number] Benefits plan: N/A Member ID: N/A E-PA: Not Available documented in this encounter [facility] 10-16-2022 Instructions Gogo Lowery APRN.CNP - 10/16/2022 12:49 PM EST PLAN: - increase Topamax to 100 mg twice a day, rx sent to pharmacy - start trial nurtec as needed instead of sumatriptan, rx sent to pharmacy - continue all other meds as prescribed - restart CPAP for sleep apnea - continue following with your other specialists - please follow up in 3 months or sooner if needed Nurtec 75 mg ODT is a calcitonin gene-related peptide receptor antagonist indicated for the use of acute migraine treatment. Nurtec can be taken once daily as needed to treat an acute migraine. Nurtec will disolve on or underneath your tongue and should be taken at the first sign of a migraine attack. documented in this encounter [facility] 10-16-2022 History of Present illness Narrative Images from the original note were not included. Outpatient [facility] - Follow Up Visit Accompanied by: Self Primary Problem List: ACTIVE PROBLEM LIST Bipolar I Disorder (Hcc) Diaphragmatic hernia without mention of obstruction or gangrene Backache, Unspecified Incontinence Overactive Bladder Mixed Hyperlipidemia Ex-Smoker Gastroesophageal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 Problem Relation Age of Onset Cancer Mother Hysterectomy Alcohol/Drug Father Alcoholic other (Leukemia) Sister shortly after Heart Attack Brother x 2 Diabetes Brother Heart Maternal Grandmother Hearing Loss Maternal Grandmother Headache Maternal Grandmother Diabetes Maternal Grandmother Stroke Maternal Grandmother Heart Maternal Grandfather Diabetes Maternal Grandfather No Known Problems Paternal Grandmother No Known Problems Paternal Grandfather Coronary Artery Disease Son Hyperlipidemia Son Hypertension Son Hyperlipidemia Son No Known Problems Son Social History Tobacco Use Smoking status: Former Types: Cigarettes Quit date: 01/07/2018 Years since quittin.7 Smokeless tobacco: Never Tobacco comments: used welbutrin Vaping Use Vaping Use: Never used Substance Use Topics Alcohol use: No Drug use: No Current Outpatient Medications Medication Sig cephALEXin (KEFLEX) 500 mg capsule Take 1 capsule by mouth three times daily for 7 days. tiZANidine (ZANAFLEX) 4 mg tablet TAKE 1 PILL UP TO 3 TIMES PER DAY NEEDED FOR PAINFUL MUSCLE SPASMS gabapentin (NEURONTIN) 400 mg capsule Take 1 capsule by mouth three times daily for 180 days. sucralfate (CARAFATE) 1 gram tablet Take 1 tablet by mouth daily at bedtime. topiramate (TOPAMAX) 100 mg tablet Take 1 tablet by mouth daily at bedtime. rOPINIRole (REQUIP) 1 mg tablet Take one tab by mouth before bed. topiramate (TOPAMAX) 50 mg tablet Take 1 tablet by mouth daily at bedtime. in addition to [address] (PROTONIX) 40 mg tablet Take 1 tablet by mouth daily before breakfast. Take on empty stomach, 1/2 hr before meal. SUMAtriptan (IMITREX) 100 mg tablet 1/2 to 1 po at onset migraine. May rpt after 2 h prn recrrnce. Max 200mg/day and 10day/mo rosuvastatin (CRESTOR) 40 mg tablet Take 1 tablet by mouth daily at bedtime. metFORMIN ER (GLUCOPHAGE XR) 500 mg 24 hr tablet Take 1 tablet by mouth daily with breakfast. ergocalciferol 50,000 unit capsule (VITAMIN D2, DRISDOL) Take one capsule twice a week (Fri and ) amitriptyline (ELAVIL) 25 mg tablet Take 1 tablet by mouth daily at bedtime. ondansetron orally disintegrating (ZOFRAN ODT) 4 mg disintegrating tablet Take 1 tablet by mouth every 8 hours as needed for nausea/vomiting. levothyroxine (SYNTHROID) 137 mcg tablet Take one daily and two on Friday. Fenofibrate (LOFIBRA) 54 mg tablet Take 1 tablet by mouth once daily. aspirin, enteric coated (ASPIRIN, ENTERIC COATED) 81 mg EC tablet Take 81 mg by mouth once daily. famotidine (PEPCID) 40 mg tablet Take 1 tablet by mouth daily before dinner. ezetimibe (ZETIA) 10 mg tablet Take 1 tablet by mouth once daily. cyanocobalamin (VITAMIN B-12) 1,000 mcg tab Take 1 tablet by mouth once daily. CPAP Mask fitting and 30 day download for autopap 10 -20 cm H2O & formal mask refitting for medical necessity & schedule with the RT, chin strap, head gear, humidity, heated tubing (SACHI), lifetime supplies. G47.33 JORDAN albuterol HFA (PROVENTIL HFA, VENTOLIN HFA) 90 mcg/actuation inhaler Inhale 2 Puffs as instructed every 4 hours as needed for wheezing/shortness of breath. blood sugar diagnostic (BLOOD GLUCOSE TEST) test strip Test blood sugar(s) 1 times daily. Dx: Other DM Code R73.03 Insulin: No Lancets lancets Test blood sugar(s) 1 times daily. Dx: Other DM Code R73.03 Insulin: No lactase (LACTAID) 3,000 unit tablet Take 1 tablet by mouth three times daily with meals. acetaminophen (TYLENOL ARTHRITIS ORAL) Take 650 mg by mouth every 8 hours as needed. [place]-3 Fatty Acids 100 mg chew [place]-3 Fatty Acids [place]-3 Fatty Acids Active 2000 MG DAILY November 21, 2016 10:19am 11-21-2016 [facility] ([id number]) busPIRone (BUSPAR) 10 mg tablet Take 1 tablet by mouth as needed for Anxiety. Lactobacillus acidophilus (FLORAJEN) 460 mg (20 billion cell) cap Take 1 capsule by mouth once daily. COMPOUNDED PRESCRIPTION Wheeled rolator walker with ahnd breaks and seat, # 1, Dx:M19.070, Z91.071 ARIPiprazole (ABILIFY) 10 mg tablet Take 1 tablet by mouth once daily. DULoxetine (CYMBALTA) 30 mg capsule Take 1 capsule by mouth once daily. [facility] No current facility-administered medications for this visit. ALLERGIES Allergen Reactions Ditropan [Oxybutyni* Other: See Comments Nausea,vomiting Cogentin [Benztropi* Other: See Comments Blurred vision Depakote [Divalproe* GI Upset Flagyl [Metronidazo* GI Upset Nausea and vomiting Ibuprofen GI Upset Nexium [Esomeprazol* Unknown Percocet [Oxycodone* Other: See Comments Nausea, RDZ, eye swelling Tylenol [Acetaminop* GI Upset diarrhea with high doses REVIEW OF SYSTEMS: All other ROS: negative As noted in HPI PHYSICAL EXAMINATION: VIDEO EXAM: (if completed, performed via video enabled technology) GENERAL: alert and appropriate, in no distress, well-hydrated, well nourished, and happy, smiling, interactive Latest Reference Range & Units Most Recent REBA Negative Positive ! 10/01/22 15:06 REBA Titer 1:160 10/01/22 15:06 REBA Pattern Nuclear homogenous 10/01/22 15:06 DNA Antibody w/Confirmation <30 IU/mL 63.56 (H) 10/01/22 15:06 Anti-FACTORY MAINTENANCE MANAGER <1.0 AI <0.2 10/01/22 15:06 Ribosomal FACTORY MAINTENANCE MANAGER Ab <1.0 AI <0.2 10/01/22 15:06 Anti-SSB <1.0 AI <0.2 10/01/22 15:06 Anti-Sm <1.0 AI <0.2 10/01/22 15:06 Sm Antibody Negative Negative 10/01/22 15:06 Anti-SSA <1.0 AI 0.6 10/01/22 15:06 Scl-70 Abs, EIA <1.0 AI <0.2 10/01/22 15:06 Yulia 1 Antibody <1.0 AI <0.2 10/01/22 15:06 Chromatin Ab <1.0 AI <0.2 10/01/22 15:06 Centromere Ab <1.0 AI <0.2 10/01/22 15:06 Rheumatoid Factor <16 IU/mL 43 (H) 10/01/22 15:06 Ribosomal FACTORY MAINTENANCE MANAGER Qualitative Negative Negative 10/01/22 15:06 FACTORY MAINTENANCE MANAGER Antibody QUAL Negative Negative 10/01/22 15:06 SSA Antibody Qual Negative Negative 10/01/22 15:06 SSB Antibody Qual Negative Negative 10/01/22 15:06 CENTROMERE AB QUAL Negative Negative 10/01/22 15:06 Chromatin Ab Qual Negative Negative 10/01/22 15:06 YULIA 1 ANTIBODY QUAL Negative Negative 10/01/22 15:06 Scleroderma Ab Qual Negative Negative 10/01/22 15:06 !: Data is abnormal (H): Data is abnormally high Findings: Knee arthroplasty. Alignment appears intact. No perihardware osteolysis. No hardware fracture. No fracture or dislocation. Low-lying patella. No soft tissue abnormality identified. IMPRESSION: Kyphotic cervical curvature in the sagittal plane centered at C6. The cord is draped over the kyphotic curvature, but there is otherwise no substantive canal or foraminal narrowing. Other general findings as noted. Anatomic Variant: None. Assume 7 cervical vertebrae with counting from the craniocervical junction. FINDINGS: No acute fractures or subluxations are noted. The disc spaces are grossly maintained. There is mild osteophyte formation. There is no paraspinal mass or bony destructive process. Others: There are degenerative changes in the lower cervical spine. DEXA 2020 - IMPRESSION: Borderline osteopenia of the lumbar spine. Normal bone density of the left hip. ASSESSMENT: (R76.8) REBA positive (primary encounter diagnosis) (R76.8) Elevated rheumatoid factor (M25.50) Pain in joint, multiple sites PLAN: 62 year old female with chronic pain, was noted to have positive REBA, dsDNA, RF. Patient has severe osteoarthritis of several joints as seen on her x-rays. She has had left knee replacement. She has underwent several treatment procedures to help with neck pain and back pain however has not found much relief. She is currently on several medications to help with pain. Patient does not have typical clinical features of an autoimmune disease like synovitis, typical rash (malar/discoid/gottron's/heliotrope), objective muscle weakness, uveitis/scleritis, oral/nasal/genital ulcers, scarring alopecia, h/o organ involvement (nephritis, myopericarditis, hematological abnormalities, neuropathies, cerebritis etc) to suggest the presence of an underlying autoimmune disease. I will evaluate in the clinic. Completing work-up with below labs and x-rays. Suspicion is low for an inflammatory arthritis. She also has thyroid disease and we see positive serologies in association commonly. There are no Patient Instructions on file for this visit. I spent a total of 30 minutes on the date of the service which included preparing to see the patient, [id number] patient care, completing clinical documentation, obtaining and/or reviewing separately obtained history, performing a medically appropriate examination, communicating with other HCPs (not separately reported), and communicating results to the patient/family/caregiver Laura Dorantes MD [facility] on 10/08/22 XR HAND GENERAL 3V PA/LAT/OBL LEFT XR HAND GENERAL 3V PA/LAT/OBL RIGHT XR SACROILIAC JOINTS 2V AP PELVIS/FERGUESON CRITHIDIA LUCILIAE VITAMIN D 25 HYDROXY CONSULT TO RHEUM/IMMUN DISEASE No orders of the defined types were placed in this encounter. Platform used - my chart documented in this encounter [facility] 10-07-2022 Miscellaneous Notes Pt notified of same. Jennifer Nesbitt LPN Urine does show infection. I will send in atb. Olvin Richard PA-C documented in this encounter [facility] 10-03-2022 History of Present illness Narrative Chanda is a 62 year old who presents for an annual gynecologic exam without complaints. Postmenopausal: Yes HRT use: No. Last Pap: 08/06/2016 normal HPV: 07/29/2016 negative History of abnormal pap: No Last mammogram: 2021 normal History of abnormal mammogram: No Sexually active: Yes OB History T3 L3 SAB0 IAB0 Ectopic0 Multiple0 Live Births0 [employer] History LMP: Postmenopausal Age at Menarche: Age at First : Age at Menopause: [employer] History Comments: Sexual Activity: Not Currently; Male Contraception: No contraception data on record PAST MEDICAL HISTORY Diagnosis Date Acquired hypothyroidism 08/22/2015 ACUTE GASTRITIS W/O HEMORRHAGE 02/05/2006 Anxiety and depression 10/05/2020 Arthritis 05/18/2020 Arthritis of lumbar spine 03/05/2022 Mod Arthritis of right foot 09/02/2018 At high risk for falls 09/02/2018 Backache, unspecified 01/11/2013 Bilateral carotid artery stenosis 09/25/202009/2020 20-40% bilaterally Bipolar I disorder (HCC) 12/20/2005 [facility] Cervical disc disorder with radiculopathy 09/27/2021 Cervical radiculopathy 09/19/2021 Cervical spondylosis 09/19/2021 Seeing pain management Cervical spondylosis without myelopathy 09/27/2021 Cervical stenosis of spinal canal 09/19/2021 Chronic pain of left knee 06/19/2019 Class 1 obesity due to excess calories without serious comorbidity with body mass index (BMI) of 33.0 to 33.9 in adult 03/03/2018 Current use of proton pump inhibitor 03/03/2018 Diaphragmatic hernia without mention of obstruction or gangrene 02/05/2006 Elevated hemoglobin A1c 06/29/2018 Encounter for screening mammogram for breast cancer 03/05/2019 Ex-smoker 08/22/2015 Started at age 14 and has smoked up to 1/2 a PPD, quit 12/2017 External hemorrhoids without mention of complication Gastroesophageal reflux disease with esophagitis 08/22/2015 Hearing loss Hearing aids in both ears. History of transient ischemic attack (TIA) 11/05/2019 Incontinence 02/20/[address] Jordan Irritable bowel syndrome with constipation 03/03/2018 Lactose intolerance 03/05/2019 Lung nodules 12/11/2017 CT 12/11/[address] 05/2018 stable needs repeat in 2 yrs Medicare annual wellness visit, subsequent 03/03/2018 Medicare Part B: 06/17/2001 last done: 03/05/2019 Migraine without aura and without status migrainosus, not intractable 05/22/2016 Mixed hyperlipidemia 08/22/2015 JORDAN (obstructive sleep apnea) 09/02/2018 DME DASCO Osteopenia of lumbar spine 11/27/2020 Borderline on DXA 11/2020 Other constipation 07/21/2019 Overactive bladder 05/30/2015 Primary insomnia 07/30/2018 Primary osteoarthritis of left knee 11/05/2019 RLS (restless legs syndrome) 06/04/2019 S/P total knee arthroplasty, left 10/18/2020 Smoker 08/22/2015 Started at age 14 and has smoked up to 1/2 a PPD, quit 12/2017 Thoracic arthritis 03/05/2022 Mild Vitamin D deficiency 01/25/2020 PAST SURGICAL HISTORY Procedure Laterality Date ARTHROSCOPY KNEE DIAGNOSTIC W/WO SYNOVIAL BX SPX Arthroscopy, knee, Left ARTHRS KNE SURG W/MENISCECTOMY MED/LAT W/SHVG Left 12/01/2019 COLONOSCOPY 08/11/2019 one polyp, repeat 10 yrs COLONOSCOPY FLX DX W/COLLJ SPEC WHEN PFRMD 02/28/2009 COLONOSCOPY FLX DX W/COLLJ SPEC WHEN PFRMD 02/04/2018 Colonoscopy EGD 03/24/2018 Dr. Garcia reported as normal. Neg for Hpylori and celiac. ESOPHAGOGASTRODUODENOSCOPY TRANSORAL DIAGNOSTIC 02/05/2006 EGD ESOPHAGOGASTRODUODENOSCOPY TRANSORAL DIAGNOSTIC 12/21/2014 EGD ESOPHAGOGASTRODUODENOSCOPY TRANSORAL DIAGNOSTIC 03/29/2015 EGD EXC/DSTRJ LINGUAL TONSIL ANY METHOD SPX remote FECAL OCCULT BLOOD TEST 12/19/2016 negative PAST SURGICAL HISTORY OF 10/05/2015 TOT monarc sling PAST SURGICAL HISTORY OF 10/05/2015 Cystourethroscopy PAST SURGICAL HISTORY OF Left 05/03/2016 ulnar nerve decompression STRESS TEST 12/10/2016 normal TOTAL KNEE REPLACEMENT Left 10/18/2020 Left Total knee arthrosplasty FAMILY HISTORY Problem Relation Age of Onset Alcohol/Drug Father Alcoholic Cancer Mother Hysterectomy Heart Attack Brother Diabetes Brother Coronary Artery Disease Son Hyperlipidemia Son Hypertension Son Hyperlipidemia Son No Known Problems Son Heart Maternal Grandfather Diabetes Maternal Grandfather Heart Maternal Grandmother Hearing Loss Maternal Grandmother Headache Maternal Grandmother Diabetes Maternal Grandmother Stroke Maternal Grandmother other (Leukemia) Sister shortly after No Known Problems Paternal Grandmother No Known Problems Paternal Grandfather SOCIAL HISTORY Social History Tobacco Use Smoking status: Former Types: Cigarettes Quit date: 01/07/2018 Years since quittin.7 Smokeless tobacco: Never Tobacco comments: used welbutrin Vaping Use Vaping Use: Never used Substance Use Topics Alcohol use: No Drug use: No REVIEW OF SYSTEMS Abdomen: has appointment with gastroenterology for chronic nausea and vomiting, using Zofran .No abdominal pain, diarrhea, or constipation. No bloating, early satiety, indigestion, or increased flatulence. Bladder: Mixed incontinence - wears protection and does not want further procedures. Bladder sling 2014 Has urine culture pending. Breast: No breast lumps, nipple d/c, overlying skin changes, redness or skin retraction Allergies and current medication updated:Yes EXAM: BP 128/72 Ht 5' 3 (1.60m) Wt 205 lb 12.8 oz (93.4kg) BMI 36.46 kg/(m^2). GENERAL: pleasant, female in no apparent distress HEENT: Normocephalic, atraumatic, mucus membranes moist, and no lesions NECK: Supple, full range of motion, no adenopathy, and thyroid normal DERMATOLOGY: Normal, without lesions, non-icteric, and non-hirsute BREAST: soft, non-tender, symmetric, no dominant mass, normal nipple-areolar complex, no lymphadenopathy, and no nipple discharge CHEST: Normal inspiratory effort ABDOMEN: soft, non-tender, and no masses PELVIC: external genitalia normal, normal Bartholin's glands, urethra, Adell's glands, no vulvar lesions, no cervical lesions, physiologic discharge present, normal appearing perineal body and perianal region Cystocele 2nd degree BIMANUAL: uterus normal size, shape and consistency, no adnexal masses, and non-tender RECTOVAGINAL: deferred. NEURO: alert and oriented x3,exam grossly non-focal EXTREMITIES: normal ASSESSMENT/PLAN: 1) Health maintenance: Pap done with HPV. Mammogram ordered Mammogram up to date Nutrition, exercise and routine health maintenance exams reviewed. Calcium/Vitamin D supplementation information provided. Colon cancer screening: up to date with screening BMD - up to date 2020 2) Follow up one year or sooner as needed Krys Sykes APRN.CNP documented in this encounter [facility] 10-02-2022 Miscellaneous Notes Patient called and left a voicemail stating that she has some medical concerns that she would like to discuss with the doctor. Tried calling the patient back to clarify the issue left a voicemail for a return call to discuss what her concerns. If patient calls back please confirm her concerns so they can be approprietly sent to the physician. documented in this encounter [facility] 10-02-2022 Miscellaneous Notes Pt called and is notified of providers results and instructions. Pt voices understanding. Pt put through to scheduling to set up Rheumatology appointment. Cindy Isaac RN Let patient know that her Rheumatoid factor level was elevated. Therefor I need her to see rheumatology for further investigation and to help come up with possible tx plan. Consult placed. Urine culture results not available yet. Olvin Richard PA-C Xray shows heel spur and arthritis. Cont as we discussed . documented in this encounter [facility] 10-02-2022 Miscellaneous Notes In looking at patients chart, Carafate script was sent to [facility] pharmacy in [place] on 09/24/2022. Please also see from 09/24. JEFF Matos Spoke with pt. She has tried the otc meds w/o relief. She is going to call around and check to see if any local pharmacies have this in stock and will call back or send My Chart message. Jennifer Nesbitt LPN Is she willing to try a different pharmacy? Or she can try an OTC medication like mylanta/pepto/maalox until carafate becomes available. Olvin Richard PA-C Pt also sent My Chart message regarding medication: My pharmacy from [facility] called me said they couldn't get carafate medicine. is there something else I can use having problems as it is keeping meds and food in my stomach. I have a appt to come in the September. Received fax from [employer] stating they are unable to get sucralfate 1 gram from their supplier. No release date. Wanting to know if provider would like to change this medication. Jennifer Nesbitt LPN documented in this encounter [facility] 10-01-2022 Instructions Shashi Hallman - 10/01/2022 2:38 PM EST I have concerns for possible stress fracture Recommend boot and use cane May wish to use heel lift in opposite foot to help limit leg length discrepancy If you have any calf pain in boot, present to ED documented in this encounter [facility] 10-01-2022 History of Present illness Narrative Consultation requested by Dr. Richard for an opinion regarding left foot pain. My final recommendations will be communicated back to the requesting physician by way of shared Medical record or letter to requesting physician via US mail. Initial Podiatric Office Visit: Chief Complaint: This 62 year old female who presents with chief complaint:left foot pain HPI Patient presents to clinic with complaint of left foot pain Patient states that she has 2 week onset of left foot pain. She states she woke up one morning and had pain in the ball of her left foot. She states she has pain with any degree of walking. If she is sitting, she has no pain. She is taking tylenol for the pain but that is not helping She was seen by olvin richard today who referred patient here. PAIN EVALUATION 10/01/2022 1419 Pain Level: 8 Pain Location: Foot-Left Description: Aching Duration Amount of Time: 2 Duration Units: Weeks Frequency: Intermittent Intervention/Comfort measure: Reposition;Distractions;Relaxation Hemoglobin A1C (%) Date Value 09/07/2022 6.2 03/27/2022 6.1 08/16/2021 6.2 05/17/2021 6.2 03/16/2021 6.4 08/15/2020 6.3 03/01/2020 6.1 PCP: Kyle Sylvester MD PAST MEDICAL HISTORY Diagnosis Date Acquired hypothyroidism 08/22/2015 ACUTE GASTRITIS W/O HEMORRHAGE 02/05/2006 Anxiety and depression 10/05/2020 Arthritis 05/18/2020 Arthritis of lumbar spine 03/05/2022 Mod Arthritis of right foot 09/02/2018 At high risk for falls 09/02/2018 Backache, unspecified 01/11/2013 Bilateral carotid artery stenosis 09/25/202009/2020 20-40% bilaterally Bipolar I disorder (HCC) 12/20/2005 [facility] Cervical disc disorder with radiculopathy 09/27/2021 Cervical radiculopathy 09/19/2021 Cervical spondylosis 09/19/2021 Seeing pain management Cervical spondylosis without myelopathy 09/27/2021 Cervical stenosis of spinal canal 09/19/2021 Chronic pain of left knee 06/19/2019 Class 1 obesity due to excess calories without serious comorbidity with body mass index (BMI) of 33.0 to 33.9 in adult 03/03/2018 Current use of proton pump inhibitor 03/03/2018 Diaphragmatic hernia without mention of obstruction or gangrene 02/05/2006 Elevated hemoglobin A1c 06/29/2018 Encounter for screening mammogram for breast cancer 03/05/2019 Ex-smoker 08/22/2015 Started at age 14 and has smoked up to 1/2 a PPD, quit 12/2017 External hemorrhoids without mention of complication Gastroesophageal reflux disease with esophagitis 08/22/2015 Hearing loss Hearing aids in both ears. History of transient ischemic attack (TIA) 11/05/2019 Incontinence 02/20/[address] Jordan Irritable bowel syndrome with constipation 03/03/2018 Lactose intolerance 03/05/2019 Lung nodules 12/11/2017 CT 12/11/[address] 05/2018 stable needs repeat in 2 yrs Medicare annual wellness visit, subsequent 03/03/2018 Medicare Part B: 06/17/2001 last done: 03/05/2019 Migraine without aura and without status migrainosus, not intractable 05/22/2016 Mixed hyperlipidemia 08/22/2015 JORDAN (obstructive sleep apnea) 09/02/2018 DME DASCO Osteopenia of lumbar spine 11/27/2020 Borderline on DXA 11/2020 Other constipation 07/21/2019 Overactive bladder 05/30/2015 Primary insomnia 07/30/2018 Primary osteoarthritis of left knee 11/05/2019 RLS (restless legs syndrome) 06/04/2019 S/P total knee arthroplasty, left 10/18/2020 Smoker 08/22/2015 Started at age 14 and has smoked up to 1/2 a PPD, quit 12/2017 Thoracic arthritis 03/05/2022 Mild Vitamin D deficiency 01/25/2020 Current Outpatient Medications Medication Sig gabapentin (NEURONTIN) 400 mg capsule Take 1 capsule by mouth three times daily for 180 days. sucralfate (CARAFATE) 1 gram tablet Take 1 tablet by mouth daily at bedtime. topiramate (TOPAMAX) 100 mg tablet Take 1 tablet by mouth daily at bedtime. rOPINIRole (REQUIP) 1 mg tablet Take one tab by mouth before bed. topiramate (TOPAMAX) 50 mg tablet Take 1 tablet by mouth daily at bedtime. in addition to [address] (PROTONIX) 40 mg tablet Take 1 tablet by mouth daily before breakfast. Take on empty stomach, 1/2 hr before meal. SUMAtriptan (IMITREX) 100 mg tablet 1/2 to 1 po at onset migraine. May rpt after 2 h prn recrrnce. Max 200mg/day and 10/mo rosuvastatin (CRESTOR) 40 mg tablet Take 1 tablet by mouth daily at bedtime. metFORMIN ER (GLUCOPHAGE XR) 500 mg 24 hr tablet Take 1 tablet by mouth daily with breakfast. ergocalciferol 50,000 unit capsule (VITAMIN D2, DRISDOL) Take one capsule twice a week (Fri and ) amitriptyline (ELAVIL) 25 mg tablet Take 1 tablet by mouth daily at bedtime. ondansetron orally disintegrating (ZOFRAN ODT) 4 mg disintegrating tablet Take 1 tablet by mouth every 8 hours as needed for nausea/vomiting. levothyroxine (SYNTHROID) 137 mcg tablet Take one daily and two on Friday. Fenofibrate (LOFIBRA) 54 mg tablet Take 1 tablet by mouth once daily. aspirin, enteric coated (ASPIRIN, ENTERIC COATED) 81 mg EC tablet Take 81 mg by mouth once daily. famotidine (PEPCID) 40 mg tablet Take 1 tablet by mouth daily before dinner. ezetimibe (ZETIA) 10 mg tablet Take 1 tablet by mouth once daily. cyanocobalamin (VITAMIN B-12) 1,000 mcg tab Take 1 tablet by mouth once daily. CPAP Mask fitting and 30 day download for autopap 10 -20 cm H2O & formal mask refitting for medical necessity & schedule with the RT, chin strap, head gear, humidity, heated tubing (SACHI), lifetime supplies. G47.33 JORDAN albuterol HFA (PROVENTIL HFA, VENTOLIN HFA) 90 mcg/actuation inhaler Inhale 2 Puffs as instructed every 4 hours as needed for wheezing/shortness of breath. blood sugar diagnostic (BLOOD GLUCOSE TEST) test strip Test blood sugar(s) 1 times daily. Dx: Other DM Code R73.03 Insulin: No Lancets lancets Test blood sugar(s) 1 times daily. Dx: Other DM Code R73.03 Insulin: No lactase (LACTAID) 3,000 unit tablet Take 1 tablet by mouth three times daily with meals. acetaminophen (TYLENOL ARTHRITIS ORAL) Take 650 mg by mouth every 8 hours as needed. [place]-3 Fatty Acids 100 mg chew [place]-3 Fatty Acids [place]-3 Fatty Acids Active 2000 MG DAILY November 21, 2016 10:19am 11-21-2016 [facility] (45641) busPIRone (BUSPAR) 10 mg tablet Take 1 tablet by mouth as needed for Anxiety. Lactobacillus acidophilus (FLORAJEN) 460 mg (20 billion cell) cap Take 1 capsule by mouth once daily. COMPOUNDED PRESCRIPTION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 Psychiatric/Behavioral: Positive for dysphoric mood and sleep disturbance. Negative for suicidal ideas. The patient is not nervous/anxious. [facility] Patient name: Chanda Haq Date of : 1960 Today's Date: 07/04/2022 Physician performing procedure: Jese Mejia M.D., M.B.A. Procedure: Joints and Bursae Shoulder Arthrogram with Steroid Infiltration under fluoroscopic guidance Levels Treated: Right Approach: As per procedure note Injectate: A total of 5cc, consisting of 1cc of Depo-medrol (40mg/cc) the remainder consisting of 2% Lidocaine Improvement after today's procedure: as per nursing report Diagnosis: (M19.011) Primary osteoarthritis of right shoulder (primary encounter diagnosis) Comments: None HPI: Chanda Haq is an 62 year old FEMALE who presents today, in pain, for the procedure noted above. Data Reviewed: Current Medications, Past Medical History, Past Surgical History, Family History, Social History and Review of Systems: On Today's date, noted in the attribution, I have confirmed and edited as necessary, the PFSH and ROS obtained by others. Nursing note and vitals reviewed. Additional imaging reviewed as appropriate Review of Systems: Pertinent Positives: MSK: pain in the region being treated Neuro: no weakness or numbness in the region being treated Skin: Negative (No itching) Eyes: Negative (No blurred or double vision) Respiratory: Negative (No Cough, [id number]-em-[id number], Dyspnea on exertion, wheezing) Cardiovascular: Negative (No Chest Pain, Tightness, Pressure, Palpitations) Gastrointestinal: Negative (No Abdominal pain, Nausea, Vomiting, Constipation, Diarrhea) Genitourinary: Negative (No dysuria) Hematologic: Negative (No bleeding, bruising) OB: is Denied or Not Applicable Endocrine: Negative (No hot/cold intolerance) Psychiatric: Negative (No depression, anxiety or suicidal ideation) PAST MEDICAL HISTORY Diagnosis Date Acquired hypothyroidism 08/22/2015 ACUTE GASTRITIS W/O HEMORRHAGE 02/05/2006 Anxiety and depression 10/05/2020 Arthritis 05/18/2020 Arthritis of lumbar spine 03/05/2022 Mod Arthritis of right foot 09/02/2018 At high risk for falls 09/02/2018 Backache, unspecified 01/11/2013 Bilateral carotid artery stenosis 09/25/202009/2020 20-40% bilaterally Bipolar I disorder (HCC) 12/20/2005 Seeds Stinger at [facility] Cervical disc disorder with radiculopathy 09/27/2021 Cervical radiculopathy 09/19/2021 Cervical spondylosis 09/19/2021 Seeing pain management Cervical spondylosis without myelopathy 09/27/2021 Cervical stenosis of spinal canal 09/19/2021 Chronic pain of left knee 06/19/2019 Class 1 obesity due to excess calories without serious comorbidity with body mass index (BMI) of 33.0 to 33.9 in adult 03/03/2018 Current use of proton pump inhibitor 03/03/2018 Diaphragmatic hernia without mention of obstruction or gangrene 02/05/2006 Elevated hemoglobin A1c 06/29/2018 Encounter for screening mammogram for breast cancer 03/05/2019 Ex-smoker 08/22/2015 Started at age 14 and has smoked up to 1/2 a PPD, quit 12/2017 External hemorrhoids without mention of complication Gastroesophageal reflux disease with esophagitis 08/22/2015 Hearing loss Hearing aids in both ears. History of transient ischemic attack (TIA) 11/05/2019 Incontinence 02/20/[address] Jordan Irritable bowel syndrome with constipation 03/03/2018 Lactose intolerance 03/05/2019 Lung nodules 12/11/2017 CT 12/11/[address] 05/2018 stable needs repeat in 2 yrs Medicare annual wellness visit, subsequent 03/03/2018 Medicare Part B: 06/17/2001 last done: 03/05/2019 Migraine without aura and without status migrainosus, not intractable 05/22/2016 Mixed hyperlipidemia 08/22/2015 JORDAN (obstructive sleep apnea) 09/02/2018 DME DASCO Osteopenia of lumbar spine 11/27/2020 Borderline on DXA 11/2020 Other constipation 07/21/2019 Overactive bladder 05/30/2015 Primary insomnia 07/30/2018 Primary osteoarthritis of left knee 11/05/2019 RLS (restless legs syndrome) 06/04/2019 S/P total knee arthroplasty, left 10/18/2020 Smoker 08/22/2015 Started at age 14 and has smoked up to 1/2 a PPD, quit 12/2017 Thoracic arthritis 03/05/2022 Mild Vitamin D deficiency 01/25/2020 PAST SURGICAL HISTORY Procedure Laterality Date ARTHROSCOPY KNEE DIAGNOSTIC W/WO SYNOVIAL BX SPX Arthroscopy, knee, Left ARTHRS KNE SURG W/MENISCECTOMY MED/LAT W/SHVG Left 12/01/2019 COLONOSCOPY 08/11/2019 one polyp, repeat 10 yrs COLONOSCOPY FLX DX W/COLLJ SPEC WHEN PFRMD 02/28/2009 COLONOSCOPY FLX DX W/COLLJ SPEC WHEN PFRMD 02/04/2018 Colonoscopy EGD 03/24/2018 Dr. Garcia reported as normal. Neg for Hpylori and celiac. ESOPHAGOGASTRODUODENOSCOPY TRANSORAL DIAGNOSTIC 02/05/2006 EGD ESOPHAGOGASTRODUODENOSCOPY TRANSORAL DIAGNOSTIC 12/21/2014 EGD ESOPHAGOGASTRODUODENOSCOPY TRANSORAL DIAGNOSTIC 03/29/2015 EGD EXC/DSTRJ LINGUAL TONSIL ANY METHOD SPX remote FECAL OCCULT BLOOD TEST 12/19/2016 negative PAST SURGICAL HISTORY OF 10/05/2015 TOT monarc sling PAST SURGICAL HISTORY OF 10/05/2015 Cystourethroscopy PAST SURGICAL HISTORY OF Left 05/03/2016 ulnar nerve decompression STRESS TEST 12/10/2016 normal TOTAL KNEE REPLACEMENT Left 10/18/2020 Left Total knee arthrosplasty FAMILY HISTORY Problem Relation Age of Onset Alcohol/Drug Father Alcoholic Cancer Mother Hysterectomy Heart Attack Brother Diabetes Brother Coronary Artery Disease Son Hyperlipidemia Son Hypertension Son Hyperlipidemia Son No Known Problems Son Heart Maternal Grandfather Diabetes Maternal Grandfather Heart Maternal Grandmother Hearing Loss Maternal Grandmother Headache Maternal Grandmother Diabetes Maternal Grandmother Stroke Maternal Grandmother other (Leukemia) Sister shortly after No Known Problems Paternal Grandmother No Known Problems Paternal Grandfather Social History Tobacco Use Smoking status: Former Types: Cigarettes Quit date: 01/07/2018 Years since quittin.4 Smokeless tobacco: Never Tobacco comments: used welbutrin Vaping Use Vaping Use: Never used Substance Use Topics Alcohol use: No Drug use: No Current Outpatient Medications on File Prior to Visit Medication Sig topiramate (TOPAMAX) 100 mg tablet Take 1 tablet by mouth daily at bedtime. sucralfate (CARAFATE) 1 gram tablet Take 1 tablet by mouth daily at bedtime. gabapentin (NEURONTIN) 300 mg capsule Take 1 capsule by mouth three times daily for 180 days. rosuvastatin (CRESTOR) 40 mg tablet Take 1 tablet by mouth daily at bedtime. metFORMIN ER (GLUCOPHAGE XR) 500 mg 24 hr tablet Take 1 tablet by mouth daily with breakfast. ergocalciferol 50,000 unit capsule (VITAMIN D2, DRISDOL) Take one capsule twice a week (Fri and ) meloxicam (MOBIC) 15 mg tablet Take 1 tablet by mouth once daily as needed for pain (with food). amitriptyline (ELAVIL) 25 mg tablet Take 1 tablet by mouth daily at bedtime. ondansetron orally disintegrating (ZOFRAN ODT) 4 mg disintegrating tablet Take 1 tablet by mouth every 8 hours as needed for nausea/vomiting. levothyroxine (SYNTHROID) 137 mcg tablet Take one daily Fri-Fri and two on Friday. Fenofibrate (LOFIBRA) 54 mg tablet Take 1 tablet by mouth once daily. aspirin, enteric coated (ASPIRIN, ENTERIC COATED) 81 mg EC tablet Take 81 mg by mouth once daily. famotidine (PEPCID) 40 mg tablet Take 1 tablet by mouth daily before dinner. ezetimibe (ZETIA) 10 mg tablet Take 1 tablet by mouth once daily. rOPINIRole (REQUIP) 1 mg tablet Take one tab by mouth before bed. cyanocobalamin (VITAMIN B-12) 1,000 mcg tab Take 1 tablet by mouth once daily. CPAP Mask fitting and 30 day download for autopap 10 -20 cm H2O & formal mask refitting for medical necessity & schedule with the RT, chin strap, head gear, humidity, heated tubing (SACHI), lifetime supplies. G47.33 JORDAN albuterol HFA (PROVENTIL HFA, VENTOLIN HFA) 90 mcg/actuation inhaler Inhale 2 Puffs as instructed every 4 hours as needed for wheezing/shortness of breath. pantoprazole DR (PROTONIX) 40 mg tablet Take 1 tablet by mouth daily before breakfast. Take on empty stomach, 1/2 hr before meal. topiramate (TOPAMAX) 50 mg tablet Take 1 tablet by mouth daily at bedtime. in addition to 100 mg qhs blood sugar diagnostic (BLOOD GLUCOSE TEST) test strip Test blood sugar(s) 1 times daily. Dx: Other DM Code R73.03 Insulin: No Lancets lancets Test blood sugar(s) 1 times daily. Dx: Other DM Code R73.03 Insulin: No SUMAtriptan (IMITREX) 100 mg tablet 1/2 to 1 po at onset migraine. March rpt after 2 h prn recrrnce. Max 200mg/day and 10/mo lactase (LACTAID) 3,000 unit tablet Take 1 tablet by mouth three times daily with meals. acetaminophen (TYLENOL ARTHRITIS ORAL) Take 650 mg by mouth every 8 hours as needed. [place]-3 Fatty Acids 100 mg chew [place]-3 Fatty Acids [place]-3 Fatty Acids Active 2000 MG DAILY November 21, 2016 10:19am 11-21-2016 [facility] (56288) busPIRone (BUSPAR) 10 mg tablet Take 1 tablet by mouth as needed for Anxiety. Lactobacillus acidophilus (FLORAJEN) 460 mg (20 billion cell) cap Take 1 capsule by mouth once daily. COMPOUNDED PRESCRIPTION Wheeled rolator walker with ahnd breaks and seat, # 1, Dx:M19.071, Z91.071 ARIPiprazole (ABILIFY) 10 mg tablet Take 1 tablet by mouth once daily. DULoxetine (CYMBALTA) 30 mg capsule Take 1 capsule by mouth once daily. Per [facility] No current facility-administered medications on file prior to visit. ALLERGIES Allergen Reactions Ditropan [Oxybutyni* Other: See Comments Nausea,vomiting Cogentin [Benztropi* Other: See Comments Blurred vision Depakote [Divalproe* GI Upset Flagyl [Metronidazo* GI Upset Nausea and vomiting Ibuprofen GI Upset Nexium [Esomeprazol* Unknown Percocet [Oxycodone* Other: See Comments Nausea, RDZ, eye swelling Tylenol [Acetaminop* GI Upset diarrhea with high doses Objective Exam: Vitals: As per nursing documentation Constitutional: Normal Appearance, Oriented to Time, Place and Person Head: No lacerations, no external signs of trauma Eyes: Conjunctiva clear. No discharge from the eyes Cardiovascular: Appears well-perfused Pulmonary: Non-labored respirations Abdominal: Non-distended Skin: No visible rashes or ecchymosis Psychiatric: Mood appropriate for given condition Neurological: Gross movements are limited by pain, but otherwise unremarkable Assessment and Plan: As noted above UNIVERSAL PROTOCOL / SAFETY CHECKLIST * Procedure to be Performed: as noted above Sign In: A Moment of CARE was completed. Personnel directly involved with the procedure wore the appropriate PPE (Personal Protective Equipment). Patient/Surrogate Stated/Verified: PATIENT VERIFIED(optional for EMERGENT procedures): Patient name, Date of , Relevant allergies and The intended procedure Time Out Communication: Intended patient and procedure match the source documents. Consent documented and matches the intended procedure. Obtained in writing prior to procedure I had a nice discussion with the patient today about their current pain and the pathology that could be causing it We discussed different treatment options, including risks, benefits and alternatives. We agreed to proceed as previously discussed, or the plan was modified in accordance with the comments noted above Unless stated otherwise in the procedure note, the risks include but are not limited to infection, allergic reaction, increased pain, lack of therapeutic benefit, steroid reaction, nerve damage, paralysis, stroke, epidural hematoma, syncope, headache, respiratory or cardiac arrest, pneumothorax, and scar formation Once the plan was agreed upon, the patient gave written consent to proceed and was transported into the procedure room Sign Out: SIGN OUT (optional for EMERGENT procedures): No specimen collected. Post-procedure follow-up management communicated and Plan of Care Visit completed when applicable. Time Out was led by the physician in the procedure room, with the patient and all staff present and participating The following information was verified during the Time Out process: Patient name, patient date of , procedure site (marked), laterality, anticoagulants and allergies Procedure: The patient was prepped and draped in a sterile fashion in the supine position, with the forearm supinated and at the patient's side, after informed consent was signed and all patient questions were answered including the risks, benefits, alternative treatment options, and prognosis. The risks are as mentioned above. A single contrast technique was used. After preliminary fluoroscopic images of the shoulder were obtained, the glenohumeral joint was localized. A 25 gauge, 1.5 inch needle was used to anesthetize the skin with 3-5 cc of 1% Lidocaine. A 22 gauge, 3.5 inch needle was inserted toward the superior 1/3 of the humeral head at the intersection point of lines drawn horizontally from the coracoid process and vertically from the AC joint. 3-5cc of contrast was injected while observing the flow of the contrast, which obtained an excellent outline of the glenohumeral joint. The needle was withdrawn, and the patient was asked to perform mild exercises including internal and external rotation. Appropriate radiographs were obtained with results as described above. Please see the nursing note for exact times (time out, procedure start, procedure end). After careful removal of the needle, there was minimal bleeding. The injection site was covered with appropriate sterile dressing. The patient was noted to have tolerated the procedure well and was discharged after an appropriate period of post-procedure observation. The patient was instructed to contact us if there were any complications. The patient was advised to follow-up with the requesting physician within one to two weeks or as per their requested follow-up plan. Post procedure visit summary with written instructions was offered to the patient. Jese Mejia MD, MBA Pain Management [facility] documented in this encounter [facility] 06-26-2022 History of Present illness Narrative Chief Complaint Patient presents with: multiple issues HPI Chanda Haq is a 62 year old female who presents here today for Above Complaints.. Pt of Dr. Sylvester who is here for bumps to the back of her mouth. She is complaining of neck pain, glands sore, spots on throat. She states that the spots are red in the back of the throat. She isn't sure how long she has had the spots in the throat, just noticed them today. She has had issues with her neck since March. She has seen a neurosurgeon. She follows with pain Management Dr. Mejia. Has difficulty holding her head up, and no cause has been identified. She missed her allergy shot this past week, gets them every week. Is allergic to everything outside. Past medical history, appointments, medications, allergies reviewed. Previous Medical History PAST MEDICAL HISTORY Diagnosis Date Acquired hypothyroidism 08/22/2015 ACUTE GASTRITIS W/O HEMORRHAGE 02/05/2006 Anxiety and depression 10/05/2020 Arthritis 05/18/2020 Arthritis of lumbar spine 03/05/2022 Mod Arthritis of right foot 09/02/2018 At high risk for falls 09/02/2018 Backache, unspecified 01/11/2013 Bilateral carotid artery stenosis 09/25/202009/2020 20-40% bilaterally Bipolar I disorder (HCC) 12/20/2005 Seeds Stinger at [facility] Cervical disc disorder with radiculopathy 09/27/2021 Cervical radiculopathy 09/19/2021 Cervical spondylosis 09/19/2021 Seeing pain management Cervical spondylosis without myelopathy 09/27/2021 Cervical stenosis of spinal canal 09/19/2021 Chronic pain of left knee 06/19/2019 Class 1 obesity due to excess calories without serious comorbidity with body mass index (BMI) of 33.0 to 33.9 in adult 03/03/2018 Current use of proton pump inhibitor 03/03/2018 Diaphragmatic hernia without mention of obstruction or gangrene 02/05/2006 Elevated hemoglobin A1c 06/29/2018 Encounter for screening mammogram for breast cancer 03/05/2019 Ex-smoker 08/22/2015 Started at age 14 and has smoked up to 1/2 a PPD, quit 12/2017 External hemorrhoids without mention of complication Gastroesophageal reflux disease with esophagitis 08/22/2015 Hearing loss Hearing aids in both ears. History of transient ischemic attack (TIA) 11/05/2019 Incontinence 02/20/[address] Jordan Irritable bowel syndrome with constipation 03/03/2018 Lactose intolerance 03/05/2019 Lung nodules 12/11/2017 CT 12/11/[address] 05/2018 stable needs repeat in 2 yrs Medicare annual wellness visit, subsequent 03/03/2018 Medicare Part B: 06/17/2001 last done: 03/05/2019 Migraine without aura and without status migrainosus, not intractable 05/22/2016 Mixed hyperlipidemia 08/22/2015 JORDAN (obstructive sleep apnea) 09/02/2018 DME DASCO Osteopenia of lumbar spine 11/27/2020 Borderline on DXA 11/2020 Other constipation 07/21/2019 Overactive bladder 05/30/2015 Primary insomnia 07/30/2018 Primary osteoarthritis of left knee 11/05/2019 RLS (restless legs syndrome) 06/04/2019 S/P total knee arthroplasty, left 10/18/2020 Smoker 08/22/2015 Started at age 14 and has smoked up to 1/2 a PPD, quit 12/2017 Thoracic arthritis 03/05/2022 Mild Vitamin D deficiency 01/25/2020 Previous Surgical History PAST SURGICAL HISTORY Procedure Laterality Date ARTHROSCOPY KNEE DIAGNOSTIC W/WO SYNOVIAL BX SPX 1990s Arthroscopy, knee, Left ARTHRS KNE SURG W/MENISCECTOMY MED/LAT W/SHVG Left 12/01/2019 COLONOSCOPY 08/11/2019 one polyp, repeat 10 yrs COLONOSCOPY FLX DX W/COLLJ SPEC WHEN PFRMD 02/28/2009 COLONOSCOPY FLX DX W/COLLJ SPEC WHEN PFRMD 02/04/2018 Colonoscopy EGD 03/24/2018 Dr. Garcia reported as normal. Neg for Hpylori and celiac. ESOPHAGOGASTRODUODENOSCOPY TRANSORAL DIAGNOSTIC 02/05/2006 EGD ESOPHAGOGASTRODUODENOSCOPY TRANSORAL DIAGNOSTIC 12/21/2014 EGD ESOPHAGOGASTRODUODENOSCOPY TRANSORAL DIAGNOSTIC 03/29/2015 EGD EXC/DSTRJ LINGUAL TONSIL ANY METHOD SPX remote FECAL OCCULT BLOOD TEST 12/19/2016 negative PAST SURGICAL HISTORY OF 10/05/2015 TOT monarc sling PAST SURGICAL HISTORY OF 10/05/2015 Cystourethroscopy PAST SURGICAL HISTORY OF Left 05/03/2016 ulnar nerve decompression STRESS TEST 12/10/2016 normal TOTAL KNEE REPLACEMENT Left 10/18/2020 Left Total knee arthrosplasty Family History FAMILY HISTORY Problem Relation Age of Onset Alcohol/Drug Father Alcoholic Cancer Mother Hysterectomy Heart Attack Brother Diabetes Brother Coronary Artery Disease Son Hyperlipidemia Son Hypertension Son Hyperlipidemia Son No Known Problems Son Heart Maternal Grandfather Diabetes Maternal Grandfather Heart Maternal Grandmother Hearing Loss Maternal Grandmother Headache Maternal Grandmother Diabetes Maternal Grandmother Stroke Maternal Grandmother other (Leukemia) Sister shortly after No Known Problems Paternal Grandmother No Known Problems Paternal Grandfather Patient Allergies ALLERGIES Allergen Reactions Ditropan [Oxybutyni* Other: See Comments Nausea,vomiting Cogentin [Benztropi* Other: See Comments Blurred vision Depakote [Divalproe* GI Upset Flagyl [Metronidazo* GI Upset Nausea and vomiting Ibuprofen GI Upset Nexium [Esomeprazol* Unknown Percocet [Oxycodone* Other: See Comments Nausea, RDZ, eye swelling Tylenol [Acetaminop* GI Upset diarrhea with high doses Current Medications Current Outpatient Medications on File Prior to Visit Medication Sig sucralfate (CARAFATE) 1 gram tablet Take 1 tablet by mouth daily at bedtime. gabapentin (NEURONTIN) 300 mg capsule Take 1 capsule by mouth three times daily for 180 days. rosuvastatin (CRESTOR) 40 mg tablet Take 1 tablet by mouth daily at bedtime. metFORMIN ER (GLUCOPHAGE XR) 500 mg 24 hr tablet Take 1 tablet by mouth daily with breakfast. ergocalciferol 50,000 unit capsule (VITAMIN D2, DRISDOL) Take one capsule twice a week (Fri and ) meloxicam (MOBIC) 15 mg tablet Take 1 tablet by mouth once daily as needed for pain (with food). amitriptyline (ELAVIL) 25 mg tablet Take 1 tablet by mouth daily at bedtime. ondansetron orally disintegrating (ZOFRAN ODT) 4 mg disintegrating tablet Take 1 tablet by mouth every 8 hours as needed for nausea/vomiting. levothyroxine (SYNTHROID) 137 mcg tablet Take one daily Fri-Fri and two on Friday. Fenofibrate (LOFIBRA) 54 mg tablet Take 1 tablet by mouth once daily. aspirin, enteric coated (ASPIRIN, ENTERIC COATED) 81 mg EC tablet Take 81 mg by mouth once daily. famotidine (PEPCID) 40 mg tablet Take 1 tablet by mouth daily before dinner. ezetimibe (ZETIA) 10 mg tablet Take 1 tablet by mouth once daily. topiramate (TOPAMAX) 100 mg tablet Take 1 tablet by mouth daily at bedtime. rOPINIRole (REQUIP) 1 mg tablet Take one tab by mouth before bed. cyanocobalamin (VITAMIN B-12) 1,000 mcg tab Take 1 tablet by mouth once daily. CPAP Mask fitting and 30 day download for autopap 10 -20 cm H2O & formal mask refitting for medical necessity & schedule with the RT, chin strap, head gear, humidity, heated tubing (SACHI), lifetime supplies. G47.33 JORDAN albuterol HFA (PROVENTIL HFA, VENTOLIN HFA) 90 mcg/actuation inhaler Inhale 2 Puffs as instructed every 4 hours as needed for wheezing/shortness of breath. pantoprazole DR (PROTONIX) 40 mg tablet Take 1 tablet by mouth daily before breakfast. Take on empty stomach, 1/2 hr before meal. topiramate (TOPAMAX) 50 mg tablet Take 1 tablet by mouth daily at bedtime. in addition to 100 mg qhs blood sugar diagnostic (BLOOD GLUCOSE TEST) test strip Test blood sugar(s) 1 times daily. Dx: Other DM Code R73.03 Insulin: No Lancets lancets Test blood sugar(s) 1 times daily. Dx: Other DM Code R73.03 Insulin: No SUMAtriptan (IMITREX) 100 mg tablet 1/2 to 1 po at onset migraine. March rpt after 2 h prn recrrnce. Max 200mg/day and 10/mo lactase (LACTAID) 3,000 unit tablet Take 1 tablet by mouth three times daily with meals. acetaminophen (TYLENOL ARTHRITIS ORAL) Take 650 mg by mouth every 8 hours as needed. [place]-3 Fatty Acids 100 mg chew [place]-3 Fatty Acids [place]-3 Fatty Acids Active 2000 MG DAILY November 21, 2016 10:19am 11-21-2016 [facility] ([id number]) busPIRone (BUSPAR) 10 mg tablet Take 1 tablet by mouth as needed for Anxiety. Lactobacillus acidophilus (FLORAJEN) 460 mg (20 billion cell) cap Take 1 capsule by mouth once daily. COMPOUNDED PRESCRIPTION Wheeled rolator walker with ahnd breaks and seat, # 1, Dx:M19.071, Z91.071 ARIPiprazole (ABILIFY) 10 mg tablet Take 1 tablet by mouth once daily. DULoxetine (CYMBALTA) 30 mg capsule Take 1 capsule by mouth once daily. [facility] No current facility-administered medications on file prior to visit. Social History Social History Tobacco Use Smoking status: Former Types: Cigarettes Quit date: 01/07/2018 Years since quittin.4 Smokeless tobacco: Never Tobacco comments: used welbutrin Vaping Use Vaping Use: Never used Substance Use Topics Alcohol use: No Drug use: No EXAM: BP 122/78 Pulse 74 Resp 16 Wt 90.3 kg (199 lb) BMI 35.25 kg/m General Appearance: Well appearing, alert, in no acute distress, well-hydrated, well nourished. and Obese. Oropharynx: Lips, mucosa, and tongue normal, teeth and gums normal, oropharynx normal. Neck: Supple, no adenopathy Health Maintenance List COVID-19 VACCINE(1) Never done PAP TESTING due on 07/26/2021 HPV TESTING due on 07/26/2021 MAMMOGRAM due on 06/26/2022 INFLUENZA(1) due on 07/18/2022 ANNUAL PCP TEAM CHRONIC DISEASE VISIT due on 03/27/2023 DTAP,TDAP,TD(2 - Td or Tdap) due on 08/18/2023 DIABETES SCREEN due on 03/27/2025 LIPID SCREEN due on 03/27/2027 COLORECTAL CANCER SCREENING due on 08/13/2029 HEPATITIS C SCREENING Completed HIV SCREENING Completed SHINGRIX VACCINE Completed Data reviewed none ASSESSMENT/PLAN: 1. Tongue abnormality - ICD9: 750.10, ICD10: Q38.3 (primary diagnosis) Reassurance; normal tongue, no LA 2. Cervical pain - ICD9: 723.1, ICD10: M54.2 Follow with specialists as scheduled Follow up prn I agree with the Chief Complaint, ROS, and Past Histories independently gathered by the clinical claims support specialist and the remaining scribed note accurately describes my personal service to the patient. Medical Decision Making: Problems: Low: Acute, uncomplicated illness or injury Risk: Low: Low risk from testing/treatment Medical Decision Making Level: 3 - Low Pedro Pulido MD The documentation for this note was completed by America Astorga Ma acting as scribe for Pedro Pulido MD. June 26, 2022 7:47 PM. America Astorga Ma documented in this encounter [facility] 06-25-2022 Miscellaneous Notes The following approved medication requests have been transmitted electronically. Requested Prescriptions Signed Prescriptions Disp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 blood sugar diagnostic (BLOOD GLUCOSE TEST) test strip Test blood sugar(s) 1 times daily. Dx: Other DM Code R73.03 Insulin: No Lancets lancets Test blood sugar(s) 1 times daily. Dx: Other DM Code R73.03 Insulin: No SUMAtriptan (IMITREX) 100 mg tablet 1/2 to 1 po at onset migraine. March after 2 h prn recrrnce. Max 200mg/day and 10/mo lactase (LACTAID) 3,000 unit tablet Take 1 tablet by mouth three times daily with meals. acetaminophen (TYLENOL ARTHRITIS ORAL) Take 650 mg by mouth every 8 hours as needed. [place]-3 Fatty Acids 100 mg chew [place]-3 Fatty Acids [place]-3 Fatty Acids Active 2000 MG DAILY November 21, 2016 10:19am 11-21-2016 [facility] (51771) busPIRone (BUSPAR) 10 mg tablet Take 1 tablet by mouth as needed for Anxiety. Lactobacillus acidophilus (FLORAJEN) 460 mg (20 billion cell) cap Take 1 capsule by mouth once daily. COMPOUNDED PRESCRIPTION Wheeled rolator walker with ahnd breaks and seat, # 1, Dx:M19.071, Z91.071 ARIPiprazole (ABILIFY) 10 mg tablet Take 1 tablet by mouth once daily. DULoxetine (CYMBALTA) 30 mg capsule Take 1 capsule by mouth once daily. [facility] FAMILY HISTORY Problem Relation Age of Onset Alcohol/Drug Father Alcoholic Cancer Mother Hysterectomy Heart Attack Brother Diabetes Brother Coronary Artery Disease Son Hyperlipidemia Son Hypertension Son Hyperlipidemia Son No Known Problems Son Heart Maternal Grandfather Diabetes Maternal Grandfather Heart Maternal Grandmother Hearing Loss Maternal Grandmother Headache Maternal Grandmother Diabetes Maternal Grandmother Stroke Maternal Grandmother other (Leukemia) Sister shortly after No Known Problems Paternal Grandmother No Known Problems Paternal Grandfather Social History Tobacco Use Smoking status: Former Types: Cigarettes Quit date: 01/07/2018 Years since quittin.4 Smokeless tobacco: Never Tobacco comments: used welbutrin Vaping Use Vaping Use: Never used Substance Use Topics Alcohol use: No Drug use: No BP 118/72 Pulse 90 Temp 36.9 C (98.4 F) Resp 16 Wt 92.1 kg (203 lb) SpO2 96% BMI 35.96 kg/m Review of Systems Constitutional: Negative for chills, fever and malaise/fatigue. HENT: Negative for congestion, ear discharge, ear pain, sinus pain and sore throat. Eyes: Negative for blurred vision, pain, discharge and redness. Respiratory: Negative for cough, hemoptysis, sputum production, shortness of breath, wheezing and stridor. Cardiovascular: Negative for chest pain. Gastrointestinal: Positive for abdominal pain and diarrhea. Negative for nausea and vomiting. Musculoskeletal: Negative for myalgias. Skin: Negative for itching and rash. Neurological: Negative for dizziness and headaches. Objective Physical Exam Constitutional: General: She is not in acute distress. Appearance: She is not diaphoretic. HENT: Head: Normocephalic. Mouth/Throat: Mouth: Mucous membranes are moist. Pharynx: Oropharynx is clear. No oropharyngeal exudate or posterior oropharyngeal erythema. Eyes: Conjunctiva/sclera: Conjunctivae normal. Pupils: Pupils are equal, round, and reactive to light. Cardiovascular: Rate and Rhythm: Normal rate and regular rhythm. Heart sounds: Normal heart sounds. Pulmonary: Effort: Pulmonary effort is normal. No tachypnea, accessory muscle usage or respiratory distress. Breath sounds: Normal breath sounds. No stridor. Abdominal: General: Bowel sounds are normal. There is no distension. Palpations: Abdomen is soft. Tenderness: There is abdominal tenderness. There is no right CVA tenderness, left CVA tenderness, guarding or rebound. Musculoskeletal: Cervical back: Normal range of motion and neck supple. No rigidity or tenderness. Lymphadenopathy: Cervical: No cervical adenopathy. Skin: General: Skin is warm and dry. Neurological: Mental Status: She is alert and oriented to person, place, and time. ASSESSMENT/PLAN: 1. Loose stools - ICD9: 787.7, ICD10: R19.5 (primary diagnosis) 2. Generalized abdominal pain - ICD9: 789.07, ICD10: R10.84 Suspicious for viral cause of abdominal pain and loose stools however with significant abdominal pain with palpation 10/10 I recommend patient be seen the ED for further evaluation care. Patient verbalized understanding agrees with plan of care. Kyle Garrett APRN.DATABASE SECURITY EXPERT documented in this encounter [facility] 06-21-2022 Miscellaneous Notes Spoke with patient following up from procedure. Patient states they are doing well, no questions or concerns at this time. Devin Costello CMA documented in this encounter [facility] 06-20-2022 Instructions Violeta Jacobsen LPN - 06/20/2022 2:27 PM EDT PROCEDURE DISCHARGE INSTRUCTIONS 06/20/2022 Chanda Haq 1960 Physician: Jese Mejia MD Procedure: Facet Joint Injection/Medial Branch Block Post Procedure Instructions: If sedation not given, no driving for 3 hours after the procedure., Perform activities that typically make you have pain and monitor your pain level during these activities for the next 3-4 hours., Apply cold compresses to injection site if needed., If medically acceptable, take over the counter anti-inflammatories such as ibuprofen or Aleve if needed for post procedure discomfort. and No hot baths, hot tubs or hot compresses for 24 hours. If you have any of the following signs or symptoms, please call our office at Fever and/or chills Swelling and/or drainage from injection site New pain that is different than your normal pain (other than soreness at the site of the procedure) Stiff neck Shortness of breath Severe increase in pain Motor dysfunctions, such as difficulty walking, bowel or bladder dysfunction and/or incontinence Headache that is severe, light sensitive or develops when changing positions (positional headache) Nausea and/or vomiting accompanied by headache that started 24-48 hours after the procedure If you have any emergent concerns, please call 911 or go to your local emergency room. Please also contact our office to let us know you will be seeking emergency care and why. documented in this encounter [facility] 06-20-2022 Nurse Note Order has been placed in the patient's chart with the following parameters for discharge from the physician: Patient is alert and oriented Vitals: Diastolic/Systolic +/- 20mmHg Respirations: 12-18 Pulse: 60-100 SpO2 is greater than or equal to 90% Patient has no nausea or vomiting Patient has no dizziness Pain level is +/- 2 from initial evaluation Dressing, dry and intact with no evidence of bleeding Criteria has been met, patient is okay to be discharged per the physician. Physician has gone in and evaluated the patient. Dressing dry and intact. No drainage noted. The patient denies nausea, numbness, tingling, weakness, shortness of breath, dizziness, or headache. Pain level 10/10. Vital signs within normal limits. Patient denied needing walked out by clinical staff and denied needing a wheelchair. Patient given discharge instructions and sent to transportation via ambulatory method. Patient left in good condition. Procedure to be performed: Left C4/C5, C5/C6, C6/C7 Cervical Medial Branch Block Patient was wheeled on stretcher from pre op bay to procedure room and assisted onto the procedure tablePatient s procedure was performed in an [facility] Procedure room. Pause completed at each level by provider to verify correct level and laterality placement Pressure was applied to patient s injection site(s) and bleeding was minimal. Patient had no complaint of shortness of breath, dizziness, headache, numbness, tingling, weakness or complications from procedure. Patient was assisted from the procedure table onto the stretcher and wheeled into a post op bay. Patient was advised a clinician will be to obtain another set of vitals. Time Out: 1410 Confirmed patient name, date of , procedure site, laterality, and allergies Procedure Start: 1412 Procedure End: 1422 Marketing Programs Manager's Name: Ibrahima Haq Are you on a blood thinner: Baby Asprin If yes, is a hold required: n Last dose of blood thinner: n INR Result today: n Do you require a Lovenox bridge:n Are you a diabetic:y Are you/or could you be : n Are you taking Xanax for the procedure: n Are you currently on a steroid? n Are you currently on an antibiotic: n Have you had a COVID-19 vaccine in the last 14 days Or are you scheduled to receive one? n documented in this encounter [facility] 06-20-2022 History of Present illness Narrative Review of Systems Constitutional: Negative for activity change, chills, fever and unexpected weight change. Genitourinary: Negative for difficulty urinating. Musculoskeletal: Positive for gait problem, myalgias, neck pain and neck stiffness. Negative for arthralgias, back pain and joint swelling. Neurological: Positive for weakness and headaches. Negative for numbness. Psychiatric/Behavioral: Positive for dysphoric mood and sleep disturbance. Negative for suicidal ideas. The patient is not nervous/anxious. [facility] Patient name: Chanda Haq Date of : 1960 Today's Date: 06/20/2022 Physician performing procedure: Jese Mejia M.D., M.B.A. Procedure: Facets Medial Branch (aka Facet Joint Nerve) Blocks under fluoroscopic guidance Levels Treated: Left Cervical C4-C5, C5-C6 and C6-C7 Facet Joint Nerves, aka Medial Branch(es) Approach: Left Oblique Injectate: A total of 3cc, consisting of 1cc of Dexamethasone (10mg/cc) the remainder consisting of 2% Lidocaine Improvement after today's procedure: as per nursing report Diagnosis: (M47.812) Cervical spondylosis without myelopathy (primary encounter diagnosis) Comments: Patient reported that right side has had improvement following the steroid injections on 06/06, left sided pain has worsened. Decision made to inject left side today. Both sides will have had steroid injection for acute pain since the RFA. HPI: Chanda Haq is an 62 year old FEMALE who presents today, in pain, for the procedure noted above. ? Data Reviewed: ? Current Medications, Past Medical History, Past Surgical History, Family History, Social History and Review of Systems: On Today's date, noted in the attribution, I have confirmed and edited as necessary, the PFSH and ROS obtained by others. ? Nursing note and vitals reviewed. Additional imaging reviewed as appropriate ? Review of Systems: ? Pertinent Positives: MSK: pain in the region being treated ? Neuro: no weakness or numbness in the region being treated ? Skin: Negative (No itching) ? Eyes: Negative (No blurred or double vision) ? Respiratory: Negative (No Cough, [id number], Dyspnea on exertion, wheezing) ? Cardiovascular: Negative (No Chest Pain, Tightness, Pressure, Palpitations) ? Gastrointestinal: Negative (No Abdominal pain, Nausea, Vomiting, Constipation, Diarrhea) ? Genitourinary: Negative (No dysuria) ? Hematologic: Negative (No bleeding, bruising) ? OB: is Denied or Not Applicable ? Endocrine: Negative (No hot/cold intolerance) ? Psychiatric: Negative (No depression, anxiety or suicidal ideation) PAST MEDICAL HISTORY Diagnosis Date Acquired hypothyroidism 08/22/2015 ACUTE GASTRITIS W/O HEMORRHAGE 02/05/2006 Anxiety and depression 10/05/2020 Arthritis 05/18/2020 Arthritis of lumbar spine 03/05/2022 Mod Arthritis of right foot 09/02/2018 At high risk for falls 09/02/2018 Backache, unspecified 01/11/2013 Bilateral carotid artery stenosis 09/25/202009/2020 20-40% bilaterally Bipolar I disorder (HCC) 12/20/2005 Seeds Stinger at [facility] Cervical disc disorder with radiculopathy 09/27/2021 Cervical radiculopathy 09/19/2021 Cervical spondylosis 09/19/2021 Seeing pain management Cervical spondylosis without myelopathy 09/27/2021 Cervical stenosis of spinal canal 09/19/2021 Chronic pain of left knee 06/19/2019 Class 1 obesity due to excess calories without serious comorbidity with body mass index (BMI) of 33.0 to 33.9 in adult 03/03/2018 Current use of proton pump inhibitor 03/03/2018 Diaphragmatic hernia without mention of obstruction or gangrene 02/05/2006 Elevated hemoglobin A1c 06/29/2018 Encounter for screening mammogram for breast cancer 03/05/2019 Ex-smoker 08/22/2015 Started at age 14 and has smoked up to 1/2 a PPD, quit 12/2017 External hemorrhoids without mention of complication Gastroesophageal reflux disease with esophagitis 08/22/2015 Hearing loss Hearing aids in both ears. History of transient ischemic attack (TIA) 11/05/2019 Incontinence 02/20/[address] Jordan Irritable bowel syndrome with constipation 03/03/2018 Lactose intolerance 03/05/2019 Lung nodules 12/11/2017 CT 12/11/[address] 05/2018 stable needs repeat in 2 yrs Medicare annual wellness visit, subsequent 03/03/2018 Medicare Part B: 06/17/2001 last done: 03/05/2019 Migraine without aura and without status migrainosus, not intractable 05/22/2016 Mixed hyperlipidemia 08/22/2015 JORDAN (obstructive sleep apnea) 09/02/2018 DME DASCO Osteopenia of lumbar spine 11/27/2020 Borderline on DXA 11/2020 Other constipation 07/21/2019 Overactive bladder 05/30/2015 Primary insomnia 07/30/2018 Primary osteoarthritis of left knee 11/05/2019 RLS (restless legs syndrome) 06/04/2019 S/P total knee arthroplasty, left 10/18/2020 Smoker 08/22/2015 Started at age 14 and has smoked up to 1/2 a PPD, quit 12/2017 Thoracic arthritis 03/05/2022 Mild Vitamin D deficiency 01/25/2020 ? PAST SURGICAL HISTORY Procedure Laterality Date ARTHROSCOPY KNEE DIAGNOSTIC W/WO SYNOVIAL BX SPX Arthroscopy, knee, Left ARTHRS KNE SURG W/MENISCECTOMY MED/LAT W/SHVG Left 12/01/2019 COLONOSCOPY 08/11/2019 one polyp, repeat 10 yrs COLONOSCOPY FLX DX W/COLLJ SPEC WHEN PFRMD 02/28/2009 COLONOSCOPY FLX DX W/COLLJ SPEC WHEN PFRMD 02/04/2018 Colonoscopy EGD 03/24/2018 Dr. Garcia reported as normal. Neg for Hpylori and celiac. ESOPHAGOGASTRODUODENOSCOPY TRANSORAL DIAGNOSTIC 02/05/2006 EGD ESOPHAGOGASTRODUODENOSCOPY TRANSORAL DIAGNOSTIC 12/21/2014 EGD ESOPHAGOGASTRODUODENOSCOPY TRANSORAL DIAGNOSTIC 03/29/2015 EGD EXC/DSTRJ LINGUAL TONSIL ANY METHOD SPX remote FECAL OCCULT BLOOD TEST 12/19/2016 negative PAST SURGICAL HISTORY OF 10/05/2015 TOT monarc sling PAST SURGICAL HISTORY OF 10/05/2015 Cystourethroscopy PAST SURGICAL HISTORY OF Left 05/03/2016 ulnar nerve decompression STRESS TEST 12/10/2016 normal TOTAL KNEE REPLACEMENT Left 10/18/2020 Left Total knee arthrosplasty ? FAMILY HISTORY Problem Relation Age of Onset Alcohol/Drug Father Alcoholic Cancer Mother Hysterectomy Heart Attack Brother Diabetes Brother Coronary Artery Disease Son Hyperlipidemia Son Hypertension Son Hyperlipidemia Son No Known Problems Son Heart Maternal Grandfather Diabetes Maternal Grandfather Heart Maternal Grandmother Hearing Loss Maternal Grandmother Headache Maternal Grandmother Diabetes Maternal Grandmother Stroke Maternal Grandmother other (Leukemia) Sister shortly after No Known Problems Paternal Grandmother No Known Problems Paternal Grandfather ? Social History Tobacco Use Smoking status: Former Smoker Types: Cigarettes Quit date: 01/07/2018 Years since quittin.4 Smokeless tobacco: Never Used Tobacco comment: used welbutrin Vaping Use Vaping Use: Never used Substance Use Topics Alcohol use: No Drug use: No ? Current Outpatient Medications on File Prior to Visit Medication Sig gabapentin (NEURONTIN) 300 mg capsule Take 1 capsule by mouth three times daily for 180 days. rosuvastatin (CRESTOR) 40 mg tablet Take 1 tablet by mouth daily at bedtime. metFORMIN ER (GLUCOPHAGE XR) 500 mg 24 hr tablet Take 1 tablet by mouth daily with breakfast. ergocalciferol 50,000 unit capsule (VITAMIN D2, DRISDOL) Take one capsule twice a week (Fri and ) meloxicam (MOBIC) 15 mg tablet Take 1 tablet by mouth once daily as needed for pain (with food). amitriptyline (ELAVIL) 25 mg tablet Take 1 tablet by mouth daily at bedtime. ondansetron orally disintegrating (ZOFRAN ODT) 4 mg disintegrating tablet Take 1 tablet by mouth every 8 hours as needed for nausea/vomiting. levothyroxine (SYNTHROID) 137 mcg tablet Take one daily and two on Friday. Fenofibrate (LOFIBRA) 54 mg tablet Take 1 tablet by mouth once daily. aspirin, enteric coated (ASPIRIN, ENTERIC COATED) 81 mg EC tablet Take 81 mg by mouth once daily. famotidine (PEPCID) 40 mg tablet Take 1 tablet by mouth daily before dinner. ezetimibe (ZETIA) 10 mg tablet Take 1 tablet by mouth once daily. topiramate (TOPAMAX) 100 mg tablet Take 1 tablet by mouth daily at bedtime. rOPINIRole (REQUIP) 1 mg tablet Take one tab by mouth before bed. cyanocobalamin (VITAMIN B-12) 1,000 mcg tab Take 1 tablet by mouth once daily. CPAP Mask fitting and 30 day download for autopap 10 -20 cm H2O & formal mask refitting for medical necessity & schedule with the RT, chin strap, head gear, humidity, heated tubing (SACHI), lifetime supplies. G47.33 JORDAN albuterol HFA (PROVENTIL HFA, VENTOLIN HFA) 90 mcg/actuation inhaler Inhale 2 Puffs as instructed every 4 hours as needed for wheezing/shortness of breath. sucralfate (CARAFATE) 1 gram tablet Take 1 tablet by mouth daily at bedtime. pantoprazole DR (PROTONIX) 40 mg tablet Take 1 tablet by mouth daily before breakfast. Take on empty stomach, 1/2 hr before meal. topiramate (TOPAMAX) 50 mg tablet Take 1 tablet by mouth daily at bedtime. in addition to 100 mg qhs blood sugar diagnostic (BLOOD GLUCOSE TEST) test strip Test blood sugar(s) 1 times daily. Dx: Other DM Code R73.03 Insulin: No Lancets lancets Test blood sugar(s) 1 times daily. Dx: Other DM Code R73.03 Insulin: No SUMAtriptan (IMITREX) 100 mg tablet 1/2 to 1 po at onset migraine. March rpt after 2 h prn recrrnce. Max 200mg/day and 10day/mo lactase (LACTAID) 3,000 unit tablet Take 1 tablet by mouth three times daily with meals. acetaminophen (TYLENOL ARTHRITIS ORAL) Take 650 mg by mouth every 8 hours as needed. [place]-3 Fatty Acids 100 mg chew [place]-3 Fatty Acids [place]-3 Fatty Acids Active 2000 MG DAILY November 21, 2016 10:19am 11-21-2016 [facility] (85425) busPIRone (BUSPAR) 10 mg tablet Take 1 tablet by mouth as needed for Anxiety. Lactobacillus acidophilus (FLORAJEN) 460 mg (20 billion cell) cap Take 1 capsule by mouth once daily. COMPOUNDED PRESCRIPTION Wheeled rolator walker with ahnd breaks and seat, # 1, Dx:M19.071, Z91.071 ARIPiprazole (ABILIFY) 10 mg tablet Take 1 tablet by mouth once daily. DULoxetine (CYMBALTA) 30 mg capsule Take 1 capsule by mouth once daily. [facility] No current facility-administered medications on file prior to visit. ? ALLERGIES Allergen Reactions Ditropan [Oxybutyni* Other: See Comments Nausea,vomiting Cogentin [Benztropi* Other: See Comments Blurred vision Depakote [Divalproe* GI Upset Flagyl [Metronidazo* GI Upset Nausea and vomiting Ibuprofen GI Upset Nexium [Esomeprazol* Unknown Percocet [Oxycodone* Other: See Comments Nausea, RDZ, eye swelling Tylenol [Acetaminop* GI Upset diarrhea with high doses ? ? Objective Exam: ? Vitals: As per nursing documentation ? Constitutional: Normal Appearance, Oriented to Time, Place and Person ? Head: No lacerations, no external signs of trauma ? Eyes: Conjunctiva clear. No discharge from the eyes ? Cardiovascular: Appears well-perfused ? Pulmonary: Non-labored respirations ? Abdominal: Non-distended ? Skin: No visible rashes or ecchymosis ? Psychiatric: Mood appropriate for given condition ? Neurological: Gross movements are limited by pain, but otherwise unremarkable Assessment and Plan: As noted above UNIVERSAL PROTOCOL / SAFETY CHECKLIST * Procedure to be Performed: as noted above Sign In: A Moment of CARE was completed. Personnel directly involved with the procedure wore the appropriate PPE (Personal Protective Equipment). Patient/Surrogate Stated/Verified: PATIENT VERIFIED(optional for EMERGENT procedures): Patient name, Date of , Relevant allergies and The intended procedure Time Out Communication: Intended patient and procedure match the source documents. Consent documented and matches the intended procedure. ? Obtained in writing prior to procedure ? I had a nice discussion with the patient today about their current pain and the pathology that could be causing it ? We discussed different treatment options, including risks, benefits and alternatives. We agreed to proceed as previously discussed, or the plan was modified in accordance with the comments noted above ? Unless stated otherwise in the procedure note, the risks include but are not limited to infection, allergic reaction, increased pain, lack of therapeutic benefit, steroid reaction, nerve damage, paralysis, stroke, epidural hematoma, syncope, headache, respiratory or cardiac arrest, pneumothorax, and scar formation ? Once the plan was agreed upon, the patient gave written consent to proceed and was transported into the procedure room Sign Out: SIGN OUT (optional for EMERGENT procedures): No specimen collected. Post-procedure follow-up management communicated and Plan of Care Visit completed when applicable. ? Time Out was led by the physician in the procedure room, with the patient and all staff present and participating ? The following information was verified during the Time Out process: Patient name, patient date of , procedure site (marked), laterality, anticoagulants and allergies Procedure: The patient was prepped and draped in a sterile fashion in the prone position after informed consent was signed and all patient questions were answered including the risks, benefits, alternative treatment options, and prognosis. The risks are as mentioned above. To block the facet joint nerves from C4 through C7, the lateral masses of these respective levels were localized under fluoroscopic visualization. A spinal needle was inserted down to the waist at the above-mentioned cervical levels. Using biplanar imaging, the needle was then walked off until it rested just lateral to the trough of the lateral mass of the medial branch nerve lies, which innervates the cervical facet joint. After contact with periosteum and negative aspirate for blood and CSF, correct placement of each needle without intravascular or epidural spread was confirmed by injecting 0.2cc of Omnipaque 300. A spot radiograph was obtained of this image. Next, a 0.5cc volume of the injectate noted above was then injected. \ Please see the nursing note for exact times (time out, procedure start, procedure end). After careful removal of the needle, there was minimal bleeding. The injection site was covered with appropriate sterile dressing. The patient was noted to have tolerated the procedure well and was discharged after an appropriate period of post-procedure observation. The patient was instructed to contact us if there were any complications. The patient was advised to follow-up with the requesting physician within one to two weeks or as per their requested follow-up plan. Post procedure visit summary with written instructions was offered to the patient. Jese Mejia MD, MBA Pain Management [facility] documented in this encounter [facility] 06-11-2022 History of Present illness Narrative Radiology Service Progress Note PATIENT NAME: Chanda Haq DATE OF SERVICE: June 11, 2022 TIME: 3:01 PM PATIENT IDENTITY VERIFICATION COMPLETED USING TWO (2) IDENTIFIERS: Name and Date of confirmed by patient verbally. FALL SCREENING: Has the patient had 2 falls in the last year or 1 fall with injury or currently using an Ambulatory Assistive Device (Walker, Cane, Wheelchair, Crutches, etc.)? No PATIENT GENDER DATA: Female. status: : No status: NO. PATIENT RELEVANT IMPLANT DATA REVIEWED: Yes RADIOLOGY DEPARTMENT: MR; Exam(s) Completed: Spine: Cervical spine PERIPHERAL IV DATA: Not applicable SIGNED BY: RT Lauro(R) June 11, 2022 3:01 PM documented in this encounter [facility] 06-11-2022 Miscellaneous Notes Patient advised. She just filled a 90 day supply of gabapentin on 06/06/2022 Catherine Perez APRN.DATABASE SECURITY EXPERT documented in this encounter [facility] 06-11-2022 History of Present illness Narrative AMBULATORY TELEPHONE VISIT Chanda Haq has consented to this telephone encounter. Persons Present: patient Chief Complaint/Reason: neck pain. Pain score 10/10 HPI: she had the 1st cervical MBB on 06/06/[address]jia that has helped the pain here by 90% for 3-4 hours. During this time she was able to do more and could move easier. She was able to bung remover her head more. She has not sustained relief. She is very sore today as she fell yesterday. She was letting out her dog and fell backwards on her neck and back. She did not go to the ER as she had the cervical xray and MRI yesterday after the fall. Ht 160 cm (5' 3 ) Wt 93 kg (205 lb) BMI 36.31 kg/m REVIEW OF SYSTEMS GENERAL: No weight loss, malaise or fevers HEENT: No nasal bleeding, congestion or rhinorrhea NECK: See HPI RESPIRATORY: Negative for cough, hemoptysis, wheezing, COPD, dyspnea or shortness of breath CARDIOVASCULAR: Negative for chest pain, leg swelling, hypertension, CHF or palpitations GI: No nausea, vomiting, or diarrhea : No history of dysuria, frequency or incontinence MUSCULOSKELETAL: see HPI SKIN: Negative for lesions, rash, and itching PSYCH: Negative for sleep disturbance, mood disorder and recent psychosocial stressors HEMATOLOGY/LYMPHOLOGY: Negative for prolonged bleeding, bruising easily or swollen nodes ENDOCRINE: Negative for cold or heat intolerance, polyuria, polydipsia and goiter NEURO: Numbness or tingling of hands Data Reviewed: see below 06/11/2022 3:25 PM - Radiology, Oru In Impression IMPRESSION: Kyphotic cervical curvature in the sagittal plane centered at C6. The cord is draped over the kyphotic curvature, but there is otherwise no substantive canal or foraminal narrowing. Other general findings as noted. Anatomic Variant: None. Assume 7 cervical vertebrae with counting from the craniocervical junction. Electric Organ Inspector And Repairer: ALEX Transcribe Date/Time: Jun 11 2022 3:15P Dictated by : DAISY CANAS MD This examination was interpreted and the report reviewed and electronically signed by: DAISY CANAS MD on Jun 11 2022 3:22PM EST Results-Findings * * *Final Report* * * DATE OF EXAM: Jun 11 2022 2:58PM [facility] [id number] - MRI CERVICAL SPINE WO IVCON / PROCEDURE REASON: Cervical radiculopathy * * * * Physician Interpretation * * * * EXAMINATION: MRI CERVICAL SPINE WO IVCON CLINICAL HISTORY: Cervical radiculopathy. This information is taken directly from the manager order system. TECHNIQUE: Routine cervical spine MR protocol without gadolinium. MQ: [id number] COMPARISON: Previous MRI of the cervical spine 07/06/2021. Outside cervical spine CT 04/19/2022. RESULT: Counting reference: Craniocervical junction. Anatomic Variants: None. Localizer images: No evidence for mass within the resolving capacity of the second hand Alignment: Kyphotic curvature in the cervical spine centered at C6. Minimal grade 1 anterolisthesis of C4 on C5 and C5 on C6. Minimal retrolisthesis of C6 on C7 on the order of 2 mm. Very slight curvature convex left in the coronal plane. Craniocervical junction: Degenerative spurring at the atlantodental joint. Otherwise, dens is normally aligned. Ample CSF space surrounding the cord at this level. Cord: Cord is draped over the kyphotic curvature, but there is otherwise no gross cord compression. Otherwise satisfactory CSF space surrounding the cord through the lower limit of the [id number]-vowa which is at lower T4. Bone marrow signal/fracture: Mild endplate degenerative change. No other pathologic marrow infiltration. Cervical soft tissues: The paraspinal soft tissues are within normal limits. C2-C3: Facet degenerative change. Canal and foramina remain patent. C3-C4: Minimal disc bulging and facet degenerative change. Canal and foramina remain patent. C4-C5: Minor disc bulging and facet degenerative change. Canal and foramina remain patent. C5-C6: Minor disc bulging and mild facet degenerative change. Flattening of ventral thecal sac, but no cord compression. Foramina are patent. C6-C7: Minor disc bulging and very shallow protrusion. Indentation of ventral thecal sac, and the cord is draped over the kyphotic curvature centered at the C6 level, but there is no cord compression or abnormal cord signal. Foramina are patent. C7-T1: Canal and foramina are patent. Upper thoracic canal and foramina are patent through the lower limit of the [id number] which is at lower T4 06/11/2022 4:52 PM - Radiology, Oru In Impression IMPRESSION: Osteopenia and degenerative changes as detailed in report. Smoothly marginated cervical kyphosis in the neutral position which has increased since 2020. No evidence of associated vertebral body fracture or instability. Electric Organ Inspector And Repairer: ALEX Transcribe Date/Time: Jun 11 2022 4:46P Dictated by : AMRITA IVEY MD This examination was interpreted and the report reviewed and electronically signed by: AMRITA IVEY MD on Jun 11 2022 4:50PM EST Results-Findings * * *Final Report* * * DATE OF EXAM: Jun 11 2022 3:08PM [id number] [id number] - XR CERVICAL 4V AP/LAT/FLX/EXT / PROCEDURE REASON: Cervical radiculopathy * * * * Physician Interpretation * * * * EXAMINATION: XR CERVICAL 4V AP/LAT/FLX/EXT HISTORY: Chronic neck pain that increased following a RFA x 2 months ago. Cervical radiculopathy. TECHNIQUE: XR CERVICAL 4V AP/LAT/FLX/EXT Laterality: NOT APPLICABLE Number of different views (projections): 4 M: XB_1 COMPARISON: Comparison is made to prior cervical spine dated 04/27/2021 RESULT: 4 views of the cervical spine demonstrate osteopenia and multilevel degenerative change with vertebral body osteophytosis and disc space narrowing, greatest at C5-6 and C6-7 where there is reversal the normal cervical lordosis. In the neutral position there is smooth accentuated cervical kyphosis. There are no vertebral body compression deformities and alignment is well maintained. On flexion there are normal variant pseudosubluxation C2 on C3, C3 on C4 and C4 on C5. No malalignment on extension. The atlantoaxial interval and craniocervical junction are intact. There is no prevertebral soft tissue abnormality Assessment: (M47.812) Cervical spondylosis without myelopathy (primary encounter diagnosis) (G89.29) Other chronic pain (M79.10) Myalgia Plan: Keep MBB next week with Dr Mejia We will plan on a 5 day course of oral steroid for the acute pain post fall She may need a cervical ANJU if the radicular pain continues post fall and prednisone Continue HEP learned in PT Total Time Spent: 11 minutes Catherine Perez APRN.MARY ELLEN documented in this encounter [facility] 06-11-2022 Instructions Catherine Perez APRN.MARY ELLEN - 06/11/2022 7:42 AM EDT Ice and heat as tolerated Activity as tolerated documented in this encounter [facility] 06-07-2022 Miscellaneous Notes Attempted to contact patient to follow up from procedure. Left a brief message asking patient to return the call if they have any questions or concerns. Sury Jacobsen LPN documented in this encounter [facility] 06-06-2022 Nurse Note Dressing dry and intact, no drainage noted. The patient denies numbness, tingling, weakness, shortness of breath, dizziness or headache. Pain level 0/10. Patient given discharge instructions and escorted to transportation via ambulatory method. Patient left in good condition. Taj Martin LPN Procedure to be performed: Right C4/5, C5/6, C6/7 Cervical Medial Branch Block Patient was wheeled on stretcher from pre op bay to procedure room and assisted onto the procedure tablePatient s procedure was performed in an [facility] Procedure room. Pause completed at each level by provider to verify correct level and laterality placement Pressure was applied to patient s injection site(s) and bleeding was minimal. Patient had no complaint of shortness of breath, dizziness, headache, numbness, tingling, weakness or complications from procedure. Patient was assisted from the procedure table onto the stretcher and wheeled into a post op bay. Patient was advised a clinician will be to obtain another set of vitals. Time Out: 1343 Confirmed patient name, date of , procedure site, laterality, and allergies Procedure Start: 1346 Procedure End: 1357 Marketing Programs Manager's Name: Jere Haq Are you on a blood thinner: Baby Asprin If yes, is a hold required: n Last dose of blood thinner: n INR Result today: n Do you require a Lovenox bridge:n Are you a diabetic:y 98 Are you/or could you be : n/a Are you taking Xanax for the procedure: n Are you currently on a steroid? n Are you currently on an antibiotic: n Have you had a COVID-19 vaccine in the last 14 days Or are you scheduled to receive one? n documented in this encounter [facility] 06-06-2022 History of Present illness Narrative Review of Systems Constitutional: Negative for activity change, chills, fever and unexpected weight change. Genitourinary: Negative for difficulty urinating. Musculoskeletal: Positive for arthralgias, back pain, gait problem, neck pain and neck stiffness. Negative for joint swelling and myalgias. Neurological: Positive for weakness and headaches. Negative for numbness. Psychiatric/Behavioral: Negative for dysphoric mood, sleep disturbance and suicidal ideas. The patient is not nervous/anxious. [facility] Patient name: Chanda Haq Date of : 1960 Today's Date: 06/06/2022 Physician performing procedure: Jese Mejia M.D., M.B.A. Procedure: Facets Medial Branch (aka Facet Joint Nerve) Blocks under fluoroscopic guidance Levels Treated: Right Cervical C4-C5, C5-C6 and C6-C7 Facet Joint Nerves, aka Medial Branch(es) Approach: Right Oblique Injectate: A total of 4cc, consisting of 1cc of Dexamethasone (10mg/cc) the remainder consisting of 0.75% Bupivacaine (half this medication was placed at the medial branches, the other half was infiltrated into the deep muscle layers, superficial to the joints. Improvement after today's procedure: as per nursing report Diagnosis: (M47.812) Cervical spondylosis without myelopathy (primary encounter diagnosis) Comments: Steroids were included today for acute pain. HPI: Chanda Haq is an 62 year old FEMALE who presents today, in pain, for the procedure noted above. ? Data Reviewed: ? Current Medications, Past Medical History, Past Surgical History, Family History, Social History and Review of Systems: On Today's date, noted in the attribution, I have confirmed and edited as necessary, the PFSH and ROS obtained by others. ? Nursing note and vitals reviewed. Additional imaging reviewed as appropriate ? Review of Systems: ? Pertinent Positives: MSK: pain in the region being treated ? Neuro: no weakness or numbness in the region being treated ? Skin: Negative (No itching) ? Eyes: Negative (No blurred or double vision) ? Respiratory: Negative (No Cough, Uhgerpqlv-ru-oqqcyw, Dyspnea on exertion, wheezing) ? Cardiovascular: Negative (No Chest Pain, Tightness, Pressure, Palpitations) ? Gastrointestinal: Negative (No Abdominal pain, Nausea, Vomiting, Constipation, Diarrhea) ? Genitourinary: Negative (No dysuria) ? Hematologic: Negative (No bleeding, bruising) ? OB: is Denied or Not Applicable ? Endocrine: Negative (No hot/cold intolerance) ? Psychiatric: Negative (No depression, anxiety or suicidal ideation) PAST MEDICAL HISTORY Diagnosis Date Acquired hypothyroidism 08/22/2015 ACUTE GASTRITIS W/O HEMORRHAGE 02/05/2006 Anxiety and depression 10/05/2020 Arthritis 05/18/2020 Arthritis of lumbar spine 03/05/2022 Mod Arthritis of right foot 09/02/2018 At high risk for falls 09/02/2018 Backache, unspecified 01/11/2013 Bilateral carotid artery stenosis 09/25/202009/2020 20-40% bilaterally Bipolar I disorder (HCC) 12/20/2005 Seeds Stinger at [facility] Cervical disc disorder with radiculopathy 09/27/2021 Cervical radiculopathy 09/19/2021 Cervical spondylosis 09/19/2021 Seeing pain management Cervical spondylosis without myelopathy 09/27/2021 Cervical stenosis of spinal canal 09/19/2021 Chronic pain of left knee 06/19/2019 Class 1 obesity due to excess calories without serious comorbidity with body mass index (BMI) of 33.0 to 33.9 in adult 03/03/2018 Current use of proton pump inhibitor 03/03/2018 Diaphragmatic hernia without mention of obstruction or gangrene 02/05/2006 Elevated hemoglobin A1c 06/29/2018 Encounter for screening mammogram for breast cancer 03/05/2019 Ex-smoker 08/22/2015 Started at age 14 and has smoked up to 1/2 a PPD, quit 12/2017 External hemorrhoids without mention of complication Gastroesophageal reflux disease with esophagitis 08/22/2015 Hearing loss Hearing aids in both ears. History of transient ischemic attack (TIA) 11/05/2019 Incontinence 02/20/[address] Jordan Irritable bowel syndrome with constipation 03/03/2018 Lactose intolerance 03/05/2019 Lung nodules 12/11/2017 CT 12/11/[address] 05/2018 stable needs repeat in 2 yrs Medicare annual wellness visit, subsequent 03/03/2018 Medicare Part B: 06/17/2001 last done: 03/05/2019 Migraine without aura and without status migrainosus, not intractable 05/22/2016 Mixed hyperlipidemia 08/22/2015 JORDAN (obstructive sleep apnea) 09/02/2018 DME DASCO Osteopenia of lumbar spine 11/27/2020 Borderline on DXA 11/2020 Other constipation 07/21/2019 Overactive bladder 05/30/2015 Primary insomnia 07/30/2018 Primary osteoarthritis of left knee 11/05/2019 RLS (restless legs syndrome) 06/04/2019 S/P total knee arthroplasty, left 10/18/2020 Smoker 08/22/2015 Started at age 14 and has smoked up to 1/2 a PPD, quit 12/2017 Thoracic arthritis 03/05/2022 Mild Vitamin D deficiency 01/25/2020 ? PAST SURGICAL HISTORY Procedure Laterality Date ARTHROSCOPY KNEE DIAGNOSTIC W/WO SYNOVIAL BX SPX Arthroscopy, knee, Left ARTHRS KNE SURG W/MENISCECTOMY MED/LAT W/SHVG Left 12/01/2019 COLONOSCOPY 08/11/2019 one polyp, repeat 10 yrs COLONOSCOPY FLX DX W/COLLJ SPEC WHEN PFRMD 02/28/2009 COLONOSCOPY FLX DX W/COLLJ SPEC WHEN PFRMD 02/04/2018 Colonoscopy EGD 03/24/2018 Dr. Garcia reported as normal. Neg for Hpylori and celiac. ESOPHAGOGASTRODUODENOSCOPY TRANSORAL DIAGNOSTIC 02/05/2006 EGD ESOPHAGOGASTRODUODENOSCOPY TRANSORAL DIAGNOSTIC 12/21/2014 EGD ESOPHAGOGASTRODUODENOSCOPY TRANSORAL DIAGNOSTIC 03/29/2015 EGD EXC/DSTRJ LINGUAL TONSIL ANY METHOD SPX remote FECAL OCCULT BLOOD TEST 12/19/2016 negative PAST SURGICAL HISTORY OF 10/05/2015 TOT monarc sling PAST SURGICAL HISTORY OF 10/05/2015 Cystourethroscopy PAST SURGICAL HISTORY OF Left 05/03/2016 ulnar nerve decompression STRESS TEST 12/10/2016 normal TOTAL KNEE REPLACEMENT Left 10/18/2020 Left Total knee arthrosplasty ? FAMILY HISTORY Problem Relation Age of Onset Alcohol/Drug Father Alcoholic Cancer Mother Hysterectomy Heart Attack Brother Diabetes Brother Coronary Artery Disease Son Hyperlipidemia Son Hypertension Son Hyperlipidemia Son No Known Problems Son Heart Maternal Grandfather Diabetes Maternal Grandfather Heart Maternal Grandmother Hearing Loss Maternal Grandmother Headache Maternal Grandmother Diabetes Maternal Grandmother Stroke Maternal Grandmother other (Leukemia) Sister shortly after No Known Problems Paternal Grandmother No Known Problems Paternal Grandfather ? Social History Tobacco Use Smoking status: Former Smoker Types: Cigarettes Quit date: 01/07/2018 Years since quittin.4 Smokeless tobacco: Never Used Tobacco comment: used welbutrin Vaping Use Vaping Use: Never used Substance Use Topics Alcohol use: No Drug use: No ? Current Outpatient Medications on File Prior to Visit Medication Sig diazePAM (VALIUM) 5 mg tablet Take 5 mg by mouth every 6 hours as needed. Rx'd by [facility] 05.15.2022 HYDROcodone-acetaminophen (NORCO) 5-325 mg per tablet Take 1 tablet by mouth every 6 hours as needed. rx'd from [facility] on 05.15.2022 rosuvastatin (CRESTOR) 40 mg tablet Take 1 tablet by mouth daily at bedtime. metFORMIN ER (GLUCOPHAGE XR) 500 mg 24 hr tablet Take 1 tablet by mouth daily with breakfast. gabapentin (NEURONTIN) 300 mg capsule Take 1 capsule by mouth three times daily for 30 days. ergocalciferol 50,000 unit capsule (VITAMIN D2, DRISDOL) Take one capsule twice a week (Fri and ) meloxicam (MOBIC) 15 mg tablet Take 1 tablet by mouth once daily as needed for pain (with food). amitriptyline (ELAVIL) 25 mg tablet Take 1 tablet by mouth daily at bedtime. ondansetron orally disintegrating (ZOFRAN ODT) 4 mg disintegrating tablet Take 1 tablet by mouth every 8 hours as needed for nausea/vomiting. levothyroxine (SYNTHROID) 137 mcg tablet Take one daily and two on Friday. Fenofibrate (LOFIBRA) 54 mg tablet Take 1 tablet by mouth once daily. aspirin, enteric coated (ASPIRIN, ENTERIC COATED) 81 mg EC tablet Take 81 mg by mouth once daily. famotidine (PEPCID) 40 mg tablet Take 1 tablet by mouth daily before dinner. ezetimibe (ZETIA) 10 mg tablet Take 1 tablet by mouth once daily. topiramate (TOPAMAX) 100 mg tablet Take 1 tablet by mouth daily at bedtime. rOPINIRole (REQUIP) 1 mg tablet Take one tab by mouth before bed. cyanocobalamin (VITAMIN B-12) 1,000 mcg tab Take 1 tablet by mouth once daily. CPAP Mask fitting and 30 day download for autopap 10 -20 cm H2O & formal mask refitting for medical necessity & schedule with the RT, chin strap, head gear, humidity, heated tubing (SACHI), lifetime supplies. G47.33 JORDAN albuterol HFA (PROVENTIL HFA, VENTOLIN HFA) 90 mcg/actuation inhaler Inhale 2 Puffs as instructed every 4 hours as needed for wheezing/shortness of breath. sucralfate (CARAFATE) 1 gram tablet Take 1 tablet by mouth daily at bedtime. pantoprazole DR (PROTONIX) 40 mg tablet Take 1 tablet by mouth daily before breakfast. Take on empty stomach, 1/2 hr before meal. topiramate (TOPAMAX) 50 mg tablet Take 1 tablet by mouth daily at bedtime. in addition to 100 mg qhs blood sugar diagnostic (BLOOD GLUCOSE TEST) test strip Test blood sugar(s) 1 times daily. Dx: Other DM Code R73.03 Insulin: No Lancets lancets Test blood sugar(s) 1 times daily. Dx: Other DM Code R73.03 Insulin: No aspirin, enteric coated (ASPIRIN, ENTERIC COATED) 81 mg EC tablet Take 1 tablet by mouth twice daily. (Patient taking differently: Take 81 mg by mouth. Takes every other day ) SUMAtriptan (IMITREX) 100 mg tablet 1/2 to 1 po at onset migraine. March rpt after 2 h prn recrrnce. Max 200mg/day and 10/mo lactase (LACTAID) 3,000 unit tablet Take 1 tablet by mouth three times daily with meals. acetaminophen (TYLENOL ARTHRITIS ORAL) Take 650 mg by mouth every 8 hours as needed. [place]-3 Fatty Acids 100 mg chew [place]-3 Fatty Acids [place]-3 Fatty Acids Active 2000 MG DAILY November 21, 2016 10:19am 11-21-2016 [facility] (23800) glucosamine/chondr mendoza A sod (OSTEO BI-FLEX ORAL) Take by mouth. turmeric/turmeric ext/pepr ext (TURMERIC-TURMERIC EXT-PEPPER) 500-3 mg cap Take by mouth. busPIRone (BUSPAR) 10 mg tablet Take 1 tablet by mouth as needed for Anxiety. Lactobacillus acidophilus (FLORAJEN) 460 mg (20 billion cell) cap Take 1 capsule by mouth once daily. COMPOUNDED PRESCRIPTION Wheeled rolator walker with ahnd breaks and seat, # 1, Dx:M19.071, Z91.071 ARIPiprazole (ABILIFY) 10 mg tablet Take 1 tablet by mouth once daily. DULoxetine (CYMBALTA) 30 mg capsule Take 1 capsule by mouth once daily. [facility] No current facility-administered medications on file prior to visit. ? ALLERGIES Allergen Reactions Ditropan [Oxybutyni* Other: See Comments Nausea,vomiting Cogentin [Benztropi* Other: See Comments Blurred vision Depakote [Divalproe* GI Upset Flagyl [Metronidazo* GI Upset Nausea and vomiting Ibuprofen GI Upset Nexium [Esomeprazol* Unknown Percocet [Oxycodone* Other: See Comments Nausea, RDZ, eye swelling Tylenol [Acetaminop* GI Upset diarrhea with high doses ? ? Objective Exam: ? Vitals: As per nursing documentation ? Constitutional: Normal Appearance, Oriented to Time, Place and Person ? Head: No lacerations, no external signs of trauma ? Eyes: Conjunctiva clear. No discharge from the eyes ? Cardiovascular: Appears well-perfused ? Pulmonary: Non-labored respirations ? Abdominal: Non-distended ? Skin: No visible rashes or ecchymosis ? Psychiatric: Mood appropriate for given condition ? Neurological: Gross movements are limited by pain, but otherwise unremarkable Assessment and Plan: As noted above UNIVERSAL PROTOCOL / SAFETY CHECKLIST * Procedure to be Performed: as noted above Sign In: A Moment of CARE was completed. Personnel directly involved with the procedure wore the appropriate PPE (Personal Protective Equipment). Patient/Surrogate Stated/Verified: PATIENT VERIFIED(optional for EMERGENT procedures): Patient name, Date of , Relevant allergies and The intended procedure Time Out Communication: Intended patient and procedure match the source documents. Consent documented and matches the intended procedure. ? Obtained in writing prior to procedure ? I had a nice discussion with the patient today about their current pain and the pathology that could be causing it ? We discussed different treatment options, including risks, benefits and alternatives. We agreed to proceed as previously discussed, or the plan was modified in accordance with the comments noted above ? Unless stated otherwise in the procedure note, the risks include but are not limited to infection, allergic reaction, increased pain, lack of therapeutic benefit, steroid reaction, nerve damage, paralysis, stroke, epidural hematoma, syncope, headache, respiratory or cardiac arrest, pneumothorax, and scar formation ? Once the plan was agreed upon, the patient gave written consent to proceed and was transported into the procedure room Sign Out: SIGN OUT (optional for EMERGENT procedures): No specimen collected. Post-procedure follow-up management communicated and Plan of Care Visit completed when applicable. ? Time Out was led by the physician in the procedure room, with the patient and all staff present and participating ? The following information was verified during the Time Out process: Patient name, patient date of , procedure site (marked), laterality, anticoagulants and allergies Procedure: The patient was prepped and draped in a sterile fashion in the prone position after informed consent was signed and all patient questions were answered including the risks, benefits, alternative treatment options, and prognosis. The risks are as mentioned above. To block the facet joint nerves from C4 through C7, the lateral masses of these respective levels were localized under fluoroscopic visualization. A spinal needle was inserted down to the waist at the above-mentioned cervical levels. Using biplanar imaging, the needle was then walked off until it rested just lateral to the trough of the lateral mass of the medial branch nerve lies, which innervates the cervical facet joint. After contact with periosteum and negative aspirate for blood and CSF, correct placement of each needle without intravascular or epidural spread was confirmed by injecting 0.2cc of Omnipaque 300. A spot radiograph was obtained of this image. Next, a 0.5cc volume of the injectate noted above was then injected. Please see the nursing note for exact times (time out, procedure start, procedure end). After careful removal of the needle, there was minimal bleeding. The injection site was covered with appropriate sterile dressing. The patient was noted to have tolerated the procedure well and was discharged after an appropriate period of post-procedure observation. The patient was instructed to contact us if there were any complications. The patient was advised to follow-up with the requesting physician within one to two weeks or as per their requested follow-up plan. Post procedure visit summary with written instructions was offered to the patient. Jese Mejia MD, MBA Pain Management [facility] documented in this encounter [facility] 05-27-2022 Miscellaneous Notes Radiology Service Progress Note PATIENT NAME: Chanda Haq DATE OF SERVICE: May 27, 2022 TIME: 12:46 PM PATIENT IDENTITY VERIFICATION COMPLETED USING TWO (2) IDENTIFIERS: Name and Date of confirmed by patient verbally and Name and Date of confirmed by identification band. FALL SCREENING: Has the patient had 2 falls in the last year or 1 fall with injury or currently using an Ambulatory Assistive Device (Walker, Cane, Wheelchair, Crutches, etc.)? No PATIENT GENDER DATA: Female. status: : No status: NO. PATIENT RELEVANT IMPLANT DATA REVIEWED: Not Applicable RADIOLOGY DEPARTMENT: General X-ray: Exam(s) Completed: Spine X-Ray(s): Scoliosis Series PERIPHERAL IV DATA: Not applicable SIGNED BY: Jessica López RT(R) May 27, 2022 12:46 PM documented in this encounter [facility] 05-27-2022 Miscellaneous Notes Attempted to contact Chanda Haq via phone, there was no answer, I left a voicemail asking for a call back or MyChart with further questions or concerns. I let her know that I am awaiting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 medications with friends/family? No Quality of life improved as a result of taking these medications? Yes Any side effect with this medication? No Justification for Continued Opioid Care: Adequate analgesia? Yes Aberrant drug seeking behavior? No Adverse reactions? No Medications improve quality of life? Yes Functional Goals: To remain active and independent Compliance: PDMP website checked and validated. All prescriptions have been APPROPRIATELY filled. No suspicious activity was identified. by eJse Mejia MD 03/29/2022 Kaylan 5/325, #28, 01/07/2022, 09/25/2021 Last Drug screen: Not applicable Pain Medications Taken to Date (for the chief complaint): Membrane Stabilizers: Neurontin (Gabapentin), Cymbalta (Duloxetine), Elavil (Amitriptyline) and Topamax (Topiramate) NSAIDS: Motrin (Ibuprofen), Naprosyn (Naproxen), Mobic (Meloxicam) and Relafen (Nabumetone) Opioids: Vicodin or [place] (Hydrocodone) and Percocet (Oxycodone) Muscle Relaxants: Flexeril (Cyclobenzaprine) and Lioresal (Baclofen) Topicals: OTC - helps Other Prescription or OTC Pain Medications: Tylenol (Acetaminophen) Non-Pain Meds of Note: Abilify, Buspar PRN, Imitrex Allergies: Allergies: Ditropan [Oxybutyni* Other: See Comments Comment:Nausea,vomiting Cogentin [Benztropi* Other: See Comments Comment:Blurred vision Depakote [Divalproe* GI Upset Flagyl [Metronidazo* GI Upset Comment:Nausea and vomiting Ibuprofen GI Upset Nexium [Esomeprazol* Unknown Percocet [Oxycodone* Other: See Comments Comment:Nausea, RDZ, eye swelling Tylenol [Acetaminop* GI Upset Comment:diarrhea with high doses Current Medications, Past Medical History, Past Surgical History, Family History & Social History: Reviewed on today's date. Review of Systems: Reviewed on today's date. Pertinent Positives: MSK - pain in the region being treated Neuro: No weakness or numbness in the region being treated Skin: Negative (No itching) Eyes: Negative (No blurred or double vision) Respiratory: Negative (No Cough, Gxocvxwhi-ad-rnooes, Dyspnea on exertion, wheezing) Cardiovascular: Negative (No Chest Pain, Tightness, Pressure, Palpitations) Gastrointestinal: Negative (No Abdominal pain, Nausea, Vomiting, Constipation, Diarrhea) Genitourinary: Negative (No dysuria) Hematologic: Negative (No bleeding, bruising) OB: is Denied or Not Applicable Endocrine: Negative (No hot/cold intolerance) Psychiatric: Negative (No depression, anxiety or suicidal ideation) Diagnostic Studies: Reviewed Personally on today's date, noted above MRI Spine Report MRI CERVICAL SPINE WO IVCON Exam End: 07/06/2021 2:11 PM (Final result) Narrative: * * *Final Report* * * DATE OF EXAM: Jul 06 2021 2:11PM [facility] [id number] - MRI CERVICAL SPINE WO IVCON / PROCEDURE REASON: Spinal stenosis of cervical region * * * * Physician Interpretation * * * * EXAMINATION: MRI CERVICAL SPINE WO IVCON CLINICAL HISTORY: Spinal stenosis of cervical region TECHNIQUE: Routine cervical spine MR protocol without gadolinium. MQ: [id number] COMPARISON: None. RESULT: Counting reference: Craniocervical junction. Anatomic Variants: None. Localizer images: Non-diagnostic. Alignment: Reversal the normal cervical lordosis. Anterior disc height loss C4-5 C5-6 and C6-7. Craniocervical junction: Craniocervical junction is normal. Cord: The visualized cord is within normal limits of signal intensity and morphology. Bone marrow signal/fracture: No evidence of pathologic marrow infiltration. No evidence of prior fracture. Cervical soft tissues: The paraspinal soft tissues are within normal limits. C2-C3: Canal and foramina are patent. C3-C4: Canal and foramina are patent. C4-C5: Mild disc height loss anteriorly. Mild right-sided facet degenerative change. Canal and foramina are patent. C5-C6: Mild anterior disc height loss. Minimal disc osteophyte complex with mild canal narrowing. Foramina are patent. C6-C7: Anterior disc height loss and mild anterior osteophytosis. Endplate hypertrophy mildly narrows the canal. Foramina are patent. C7-T1: Canal and foramina are patent. Impression: IMPRESSION: Moderate cervical spondylosis endplate osteophytosis resulting in mild multilevel canal narrowing. No cord compression or cord signal abnormality. Findings are detailed by level in the body the report. Anatomic Variant: None. Assume 7 cervical vertebrae with counting from the craniocervical junction. Electric Organ Inspector And Repairer: [facility] Transcribe Date/Time: Jul 06 2021 2:18P Dictated by : KIT BUTT MD This examination was interpreted and the report reviewed and electronically signed by: KIT BUTT MD on Jul 06 2021 2:20PM EST Complete Results DATE PROCEDURE IMPROVEMENT 03/20/2022 RFA Right C3-4,4-5,5-6 TBD 01/02/2022 MBB Bilat C3-6 (Lido) 100% x 6 hours (positive diagnostic) 12/19/2021 MBB Bilat C3-6 (Bupi) 100% x 6 hours (positive diagnostic) 09/13/2021 ILESI C7-T1 No relief 07/26/2021 TPI No relief Physical Exam: There were no vitals filed for this visit. Constitutional:overweight Eyes: Conjunctiva clear. No discharge from eyes Cardiovascular: Appears well perfused Lymphatic: No visible regional lymphadenopathy Skin: No visible rashes or ecchymosis Psychiatric: Full affect, Alert, Pleasant Note: Examination was limited today due to this being a virtual/telemedicine encounter (from 01/2022) Neuro-Upper: Sensation: ? Grossly intact to light touch in both upper limbs (C5-T1) dermatomes Strength: ? Deltoid (C5): 5 left, 5 Right ? Biceps (C6): 5 left, 5 Right ? Triceps (C7): 5 left, 5 Right ? Wrist Extensors (C8): 5 left, 5 Right ? Abduct. Pollicis Brevis (T1): 5 left, 5 Right Muscle Tone: ? Normal and symmetric throughout, without clonus Reflexes: ? Decreased 1+ and symmetric biceps, triceps, brachioradialis ? Robles: Negative (Normal) bilaterally Musculoskeletal-Upper: Inspection: ? Symmetric without atrophy Palpation: ? Cervical Paraspinal Tenderness: Concordant, triggering right cervical paraspinals and upper traps ? Greater Occipital Nerves: no tenderness in overlying tissue ? Paraspinal spasm: Moderate Range of Motion: ? Flexion/Extension: Normal Without end range pain (Previously 25% decreased) ? Lateral Bending: Decreased 25% With end range pain (previously 50% decreased) ? Lateral Rotation: Decreased 25% With end range pain (previously 75% decreased) Diagnoses: (M47.812) Cervical spondylosis without myelopathy (primary encounter diagnosis) Impression: 62 year old female with no significant past medical history, who presents with complaint(s) of axial neck and right shoulder pain, MRI shows right-sided foraminal stenosis and spondylosis. trigger point injection did not offer but transient relief. Epidural did not offer relief. She has lost range of motion in her neck. Medial branch blocks x 2 were positive diagnostic. She is appropriate for RFA. She has had right side completed, partial relief, but difficult to quantify due to worsening pain on the left side. She is scheduled to have left-sided RFA on 04/03. Plan: Chanda Haq would benefit from the following to reach personal goals for decreasing pain, improving function and work participation, and/or improving quality of life: Interventional Procedure(s): Radiofrequency ablation left C3-4,4-5,5-6 facet joints (scheduled 04/03) The risks, benefits, alternative treatment options and prognosis of the procedure were discussed and all of the patient's questions/concerns were addressed to the patient's satisfaction. The patient expressed understanding and gave verbal consent to proceed. Medication(s): Continue Cymbalta, Elavil, Topamax, OTC meds Additional Studies: None Referrals: No additional considerations at present Functional Anglican: No changes-continue current regimen Depending on response to the above-mentioned plan of care, in the future may consider evaluation for: Electrodiagnostic Study - evaluate for any neuropathy -Follow-up: 2 months Attribution: In addition to reviewing the information noted above, some elements copied from my most recent clinical note(s), including the physical exam (completed in entirety today), and the impression and plan sections, have been updated where appropriate. All reflect current medical decision making from today's date. Jese Mejia MD, [facility] documented in this encounter [facility] 03-28-2022 Miscellaneous Notes Pt advised of Olvin's instructions and verbalizes understanding. Also advised pt of results of the rest of her labs. Jennifer Nesbitt LPN Continue current prescribed dosing. Recheck TSH levels in 2 months. Olvin Richard PA-C Spoke with pt. States her has been helping her with her medsand she thinks she has been missing the extra dose on Friday. States she has been ill and vomiting and that pcp is aware of this. Advised pt she would be contacted if any further instructions. Jennifer Nesbitt LPN tsh is slightly elevated. Has she missed any doses of thyroid med recently? She should be taking 1tablet Friday-fri and 2 on Friday. Cholesterol is normal. a1c is stable at 6.1%. continue to watch diet. Olvin Richard PA-C documented in this encounter [facility] 03-26-2022 Miscellaneous Notes Images from the original note were not included. PA requested for B12. Insurance stating not covered due to OTC exclusion- see below. Pt will need to pay out of pocket. 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 Personnel directly involved with the procedure wore the appropriate PPE (Personal Protective Equipment). Patient/Surrogate Stated/Verified: PATIENT VERIFIED(optional for EMERGENT procedures): Patient name, Date of , Relevant allergies and The intended procedure Time Out Communication: Intended patient and procedure match the source documents. Consent documented and matches the intended procedure. Sign Out: SIGN OUT (optional for EMERGENT procedures): All specimen containers correctly labeled. Shyanne Delaney LPN Medications and allergies reviewed and updated. Latex Allergy:No Pre-Procedure Antibiotics: Bactrim DS 160mg-800mg orally, given during visit @ 1:36 pm by Shyanne Delaney Pre-Procedure Vital Signs: BP BP 140/75 Pulse 76 Resp 20 Ht 160 cm (5' 3 ) Wt 93.4 kg (206 lb) BMI 36.49 kg/m Current pain intensity is 0 on a scale of 0-10. Patient Prepped with Betadine Scrub to perineum and placement of sterile drape. Anesthetic Given: 6cc 2% Lidocaine Jelly into Urethra. Instruction sheet given and reviewed: Yes Patient verbalizes understanding: Yes Post- procedure Vital Signs: B/P: 130/76 P: 68 R:20 Pain Ratin on a scale of 0 to 10. Specimens: obtained: urine dip Nurse: Shyanne Delaney LPN documented in this encounter [facility] 03-19-2022 Instructions Shyanne Delaney LPN - 03/19/2022 2:02 PM EDT [facility] Department of Urology After your Cystoscopy You have undergone a cystoscopy. Your doctor has inserted a telescope into your urinary bladder through your urethra to view the inside of your bladder. WHAT TO EXPECT: Possible burning during urination and /or blood tinged urine. WHAT TO DO: Resume normal activity and medications. Drink 6-8 glasses of fluid each day for 3 days to help flush your urinary system. MEDICATIONS: You were given bactrim, a preventative antibiotic, prior to the procedure. WHEN TO CALL DOCTOR: IF you have a fever over 100 degrees Farenheit. IF you are unable to urinate IF blood clots form in your urine IF your urine becomes very bloody and does not clear with drinking extra fluids. Please call [facility] office at [phone] M-F 8:00 am to 5:00pm With any questions you may have and ask for the Triage Nurse After 5:00 pm or weekends [phone] Thank you 09/22/13 KW documented in this encounter [facility] 03-19-2022 Procedure note Preop Nurse: mireya Preop Check List: Patient complied with pre-op instructions, Surgical site identified and confirmed by patient, Patient Identified, Patient consent obtained, Allergies confirmed with patient. Fire risk assessment done Comments: n/a Pre-op dx: oab Post-op dx: same Procedure: Cystoscopy and Intravesical Botox Injection FINDINGS AND PROCEDURE: The history, physical findings, current medications and indications were reviewed prior to the procedure. I discussed the procedure with the patient including possible complications. In the dorsal lithotomy position, cystoscopy was performed using the flexible/rigid cystoscope and 0.9% normal saline. Female staff present for entire exam/procedure. Intra-procedural note: Vacuum-dried purified onabotulinumtoxinA (BOTOX) was reconstituted with 10ml of 0.9% non preserved saline solution and mixed gently. This resulted in one 10-ml syringes, each containing 10ml for a total of 100 units of reconstituted BOTOX. Intraservice: Prior to the start of injections, each needle was primed with approximately 1ml of reconstituted BOTOX to remove any air. A 4-mm needle was attached to the syringe and inserted through the working channel of the cystoscope to gain access to the bladder. The injection volume for 1 site-- 1/2mL -- was inserted approximately 2 mm into the detrusor. 1/2 mL injections were administered, spaced approximately 1 cm apart, avoiding the trigone. For the final injection, approximately 1 mL of 0.9% non-preserved saline was injected so the full 100 unit dose is delivered. At the end of the injection procedure, the cystoscope was removed. The female nurse assisted the physician throughout the procedure. Postservice: The injection materials and empty vial of onabotulinumatoxinA were disposed of by the nurse, consistent with locally applicable biohazard rules and procedures. The patient remained in the treatment room for 30 minutes following the procedure for observation. The nurse conducted a brief examination of the patient and inquired whether the patient was experiencing any side effects from the injection. The physician returned to check on the patient and ordered the patient's discharge with follow-up immediately by telephone should the patient experience any side effects, or via emergency room for any serious adverse effects (although none were expected). A follow-up appointment was made. POSTOPERATIVE DIAGNOSIS: Urgency of urination (primary encounter diagnosis) Post-Operative Nursing Record Post Procedure Plan Instruction Sheet Given: Post Cystoscopy Suggested CPT Code: 16214, J0585/300 Patricio Archer Jr, MD documented in this encounter [facility] 03-15-2022 History of Present illness Narrative Episode Visit Count: 1 Therapist That Will Oversee The Plan Of Care: Maximus López Start of Care Date: 03/15/22 Onset Date: 03/15/07 Plan of Care Certification Date: 03/15/22 Next Certification Due Date: 04/19/22 Patient Identified by Name and Date of : Yes RE[facility]AB[facility]ATION AND SPORTS THERAPY PHYSICAL THERAPY EVALUATION PLAN OF CARE: Assessment: Chanda Haq presents with chief complaint of LBP that interferes with cleaning . She presents with impairments in independence in exercise, joint mobility, overall function and range of motion. PROMIS (Patient-Reported Outcomes Measurement Information System) scores were reviewed and all domains identified as a rehabilitation concern. Prognosis for therapy is Fair due to: clinical presentation;chronic nature of impairments;poor past response to therapy intervention . She will benefit from skilled therapy services to meet the goals established for this plan of care as noted below. Classification Low Back Pain Subgroup Classification: Core stabilization subgroup: recommended visits 10. Spinal Mobilization Subgroup Classification based on: ROM loss Core Stabilization Subgroup Classification based on: catching/giving way Goals for Episode of Care: created on 03/15/22 through 05/10/22 Independent in home exercises. Patient will decrease pain rating by 2 points to meet minimal clinical important difference for numeric pain rating scale. Sleep through night without pain/symptoms. Pt will demo lumbar AROM that is WNL Patient Goals: Pt wants to decrease pain Planned Interventions, Frequency, and Duration: Current Frequency: 1x/week Duration: 4 weeks Total Number of Visits Planned: 4 Planned Treatment Interventions: Therapeutic exercise (35001);Neuromuscular re-education (42125);Manual therapy (87794);Therapeutic activities (94630);Patient/Family/Caregiver Education Patient demonstrates good understanding of plan of care and treatment. The above goals and plan of care were discussed and agreed upon by patient/family. SUBJECTIVE: Chanda Haq is a 61 year old female seen today for Back pain. Pain has been going on for some time. Pt feels she is up to the point where she is going to get the nerves burned in her neck. The R low back is worse. Pt has a hard time with balance and she can stumble. Patient Goals: Pt wants to decrease pain Functional Limitations: cleaning Prior Level of Function: Independent without limitations Relevant History Preferred Language: German Intake Information: Prescription present Previous Treatment: Heat ;Pain meds Falls Interview: No positive findings with falls interview Red Flags Vertebral Fracture Clinical Reasoning: No identified risk factors Abdominal Aortic Aneurysm Clinical Reasoning: No identified risk factors. Cancer Clinical Reasoning: No identified risk factors. Infection Clinical Reasoning: No identified risk factors. Cauda Equina Syndrome Clinical Reasoning: No identified risk factors. Red Flags - Cervical Cancer Clinical Reasoning: No identified risk factors. Infection Clinical Reasoning: No identified risk factors. Spine History Symptoms Location at Onset: Back Symptoms Since Onset: Worsening Pain is Worse Always: As the day progresses Sleep Affected by Pain: Pain awakens Pain: Pain Pain Location: Back Description: Aching;Dull Frequency: Continuous Post Treatment Pain Post Treatment Pain Level: No Change Post Treatment Pain Location: Back PROMIS Scales Higher is Better 10/23/2021 02/05/2022 03/13/2022 Phys Func - Score 43 (mild dysfunction) - 40 (mild dysfunction) Phys Func - Percentile 24 % - 16 % Social Roles - Score 45 (within normal limits) - 40 (mild dysfunction) Social Role - Percentile 31 % - 16 % GH Physical - Score - 32.4 (Poor) - GH Physical - Percentile - 4 % - GH Mental - Score - 38.8 (Fair) - GH Mental - Percentile - 13 % - Self-Eff Symptom - Score 41 (Average) - 35 (Low) Self-Eff Symptom - Percentile 18 % - 7 % T-scores: mean of general population = 50. 5 points is clinically meaningfully difference Percentiles provide an indication of how the patient's score ranks in relation to the general population. Higher percentile rankings indicate better function/quality of life. 50th percentile is the average of the general population and indicates half of respondents had a worse score. Lower is Better 09/25/2021 10/23/2021 03/13/2022 Fatigue - Score 57 (mild) 59 (mild) 57 (mild) Fatigue - Percentile 24 % 18 % 24 % T-scores: mean of general population = 50. 5 points is clinically meaningfully difference Percentiles provide an indication of how the patient's score ranks in relation to the general population. Higher percentile rankings indicate better function/quality of life. 50th percentile is the average of the general population and indicates half of respondents had a worse score. OBJECTIVE MEASURES WITH LEVEL OF FUNCTION: Lumbar Spine AROM Lumbar Flexion: Minimal limitation Lumbar Extension: Minimal limitation Lumbar R Side-Bend: Normal Lumbar L Side-Bend: Minimal limitation LE AROM Tested?: Yes LE AROM R LE AROM: WFL L LE AROM: WFL LE Strength R LE Strength: Grossly 4-/5 L LE Strength: Grossly 4-/5 Gait Gait Observation: Slow ernie with slightly flexed trunk. Education: Education Learning Preferences: Demonstration;Explanation;Performance; Printed Materials Barriers: None Learning/educational needs: Home exercise program;Plan of Care Education Provided: Yes, see treatment interventions for education provided Education Provided To: Patient Education Mode/Type: Demonstration;Explanation/Discussion;L iterature/Printed Materials;Performance Response to Education/Teach Back: States/Identifies;Return Demonstration TREATMENT: PT Treatment Interventions: Therapeutic Exercise Evaluation Therapeutic Exercise: 1: Discussed therapy goals, exam findings, and purpose of HEP. 2: LTR in hooklying x [address] Skilled Intervention: Patient was educated in proper exercise technique and purpose for exercises. Provided written instruction for home exercise program to facilitate proper performance and compliance. Correct performance of therapeutic exercises was facilitated with verbal and visual cuing. Billing * Evaluation Low Complexity: 1 Unit Therapeutic Exercise Treatment Minutes: 15 Total Treatment Time Minutes (timed/untimed): 15 Maximus López PT documented in this encounter [facility] 03-11-2022 Miscellaneous Notes Patient has been identified by name and date of : Yes Patient phones for refill(s): Pending Prescriptions Disp Refills ROSUVASTATIN 40 MG TABLET 90 tablet 1 Sig: Take 1 tablet by mouth daily at bedtime. SACHI: No EZETIMIBE 10 MG TABLET 90 tablet 1 Sig: Take 1 tablet by mouth once daily. SACHI: No Date of last office visit in primary care: OV on 03/02/2022 Appointment scheduled for 03/27/2022 Last 2 Encounter Wt Readings: Date: Wt: 03/02/2022 93.9 kg (207 lb) 02/13/2022 94.3 kg (208 lb) Please advise. Thank you. JEFF Matos documented in this encounter [facility] 03-05-2022 Miscellaneous Notes Patient was notified and has PT scheduled Sarah Acosta Ma Let patient know thoracic spine shows mild degenerative arthritic changes where the lower (lumbar) spine shows moderate changes. documented in this encounter [facility] 03-04-2022 Miscellaneous Notes Noted. Patient returned call. She said she did have PT for her neck. She agrees to PT for her thoracic/lumbar spine as long as insurance pays for it . Transferred to clinic scheduler for appointment. Sarita De Los Santos RN Left message for patient to contact office. Please message below. Remind patient that xray orders have been placed. [place] Reis MA Just to clarify I thought her previous PHYSICAL THERAPY was for her neck? Patient notified of results, verbalizes understanding of instructions. Pt stated she has already had 2- 6 week PT sessions. Mare Santana LPN Let patient know urine culture was negative for infection. The CT showed no kidney stones. I think her back pain is muscular in nature and not her kidney or bladder. I placed an order to get an x-ray to look at her lumbar and thoracic spine as well as an order for PHYSICAL THERAPY. documented in this encounter [facility] 03-04-2022 History of Present illness Narrative Radiology Service Progress Note PATIENT NAME: Chanda Haq DATE OF SERVICE: March 04, 2022 TIME: 12:04 PM PATIENT IDENTITY VERIFICATION COMPLETED USING TWO (2) IDENTIFIERS: Name and Date of confirmed by patient verbally. FALL SCREENING: Has the patient had 2 falls in the last year or 1 fall with injury or currently using an Ambulatory Assistive Device (Walker, Cane, Wheelchair, Crutches, etc.)? No PATIENT GENDER DATA: Female. status: : No status: NO. PATIENT RELEVANT IMPLANT DATA REVIEWED: Not Applicable RADIOLOGY DEPARTMENT: CT; Exam(s) Completed: Abdomen/Pelvis PERIPHERAL IV DATA: Not applicable SIGNED BY: RT Abdulaziz(R) March 04, 2022 12:04 PM documented in this encounter [facility] 03-02-2022 History of Present illness Narrative Chief Complaint Patient presents with: Urinary Problem: urgency, frequency, dysuria Low Back Pain HPI Chanda Haq is a 61 year old female who presents here today for Above Complaints.. Patient was seen on 02/13/2022 with c/o low back pain and UTI symptoms. Patient had a UA that showed small amount of leukocytes. Cult showed mix leola. Due to concern for Pylo she was placed on Cipro 500 mg twice a day for 10 days which she did complete. She continues to have back pain on the right that is worse with movement. Some chills, nausea, vomiting. The symptoms did not improve and seem worse. She now has dysuria, urgency and frequency. She has not noted any hematuria. Pain will wrap around from the right back into the right groin. No Hx of kidney stones. Past medical history, appointments, medications, allergies reviewed. Previous Medical History PAST MEDICAL HISTORY Diagnosis Date Acquired hypothyroidism 08/22/2015 ACUTE GASTRITIS W/O HEMORRHAGE 02/05/2006 Arthritis of right foot 09/02/2018 At high risk for falls 09/02/2018 Backache, unspecified 01/11/2013 Bipolar I disorder (HCC) 12/20/2005 Seeds Stinger at [facility] Chronic pain of left knee 06/19/2019 Class 1 obesity due to excess calories without serious comorbidity with body mass index (BMI) of 33.0 to 33.9 in adult 03/03/2018 Current use of proton pump inhibitor 03/03/2018 Diaphragmatic hernia without mention of obstruction or gangrene 02/05/2006 Elevated hemoglobin A1c 06/29/2018 Encounter for screening mammogram for breast cancer 03/05/2019 Ex-smoker 08/22/2015 Started at age 14 and has smoked up to 1/2 a PPD, quit 12/2017 External hemorrhoids without mention of complication Gastroesophageal reflux disease with esophagitis 08/22/2015 Hearing loss Hearing aids in both ears. History of transient ischemic attack (TIA) 11/05/2019 Incontinence 02/20/[address] Jordan Irritable bowel syndrome with constipation 03/03/2018 Lactose intolerance 03/05/2019 Lung nodules 12/11/2017 CT 12/11/[address] 05/2018 stable needs repeat in 2 yrs Medicare annual wellness visit, subsequent 03/03/2018 Medicare Part B: 06/17/2001 last done: 03/05/2019 Migraine without aura and without status migrainosus, not intractable 05/22/2016 Mixed hyperlipidemia 08/22/2015 JORDAN (obstructive sleep apnea) 09/02/2018 DME DASCO Osteopenia of lumbar spine 11/27/2020 Borderline on DXA 11/2020 Other constipation 07/21/2019 Overactive bladder 05/30/2015 Primary insomnia 07/30/2018 Primary osteoarthritis of left knee 11/05/2019 RLS (restless legs syndrome) 06/04/2019 Smoker 08/22/2015 Started at age 14 and has smoked up to 1/2 a PPD, quit 12/2017 Vitamin D deficiency 01/25/2020 Previous Surgical History PAST SURGICAL HISTORY Procedure Laterality Date ARTHROSCOPY KNEE DIAGNOSTIC W/WO SYNOVIAL BX SPX Arthroscopy, knee, Left ARTHRS KNE SURG W/MENISCECTOMY MED/LAT W/SHVG Left 12/01/2019 COLONOSCOPY 08/11/2019 one polyp, repeat 10 yrs COLONOSCOPY FLX DX W/COLLJ SPEC WHEN PFRMD 02/28/2009 COLONOSCOPY FLX DX W/COLLJ SPEC WHEN PFRMD 02/04/2018 Colonoscopy EGD 03/24/2018 Dr. Garcia reported as normal. Neg for Hpylori and celiac. ESOPHAGOGASTRODUODENOSCOPY TRANSORAL DIAGNOSTIC 02/05/2006 EGD ESOPHAGOGASTRODUODENOSCOPY TRANSORAL DIAGNOSTIC 12/21/2014 EGD ESOPHAGOGASTRODUODENOSCOPY TRANSORAL DIAGNOSTIC 03/29/2015 EGD EXC/DSTRJ LINGUAL TONSIL ANY METHOD SPX remote FECAL OCCULT BLOOD TEST 12/19/2016 negative PAST SURGICAL HISTORY OF 10/05/2015 TOT monarc sling PAST SURGICAL HISTORY OF 10/05/2015 Cystourethroscopy PAST SURGICAL HISTORY OF Left 05/03/2016 ulnar nerve decompression STRESS TEST 12/10/2016 normal TOTAL KNEE REPLACEMENT Left 10/18/2020 Left Total knee arthrosplasty Family History FAMILY HISTORY Problem Relation Age of Onset Alcohol/Drug Father Alcoholic Cancer Mother Hysterectomy Heart Attack Brother Diabetes Brother Coronary Artery Disease Son Hyperlipidemia Son Hypertension Son Hyperlipidemia Son No Known Problems Son Heart Maternal Grandfather Diabetes Maternal Grandfather Heart Maternal Grandmother Hearing Loss Maternal Grandmother Headache Maternal Grandmother Diabetes Maternal Grandmother Stroke Maternal Grandmother other (Leukemia) Sister shortly after No Known Problems Paternal Grandmother No Known Problems Paternal Grandfather Patient Allergies ALLERGIES Allergen Reactions Ditropan [Oxybutyni* Other: See Comments Nausea,vomiting Ibuprofen GI Upset Tylenol [Acetaminop* GI Upset diarrhea with high doses Cogentin [Benztropi* Other: See Comments Blurred vision Depakote [Divalproe* GI Upset Flagyl [Metronidazo* GI Upset Nausea and vomiting Nexium [Esomeprazol* Unknown Percocet [Oxycodone* Other: See Comments Nausea, RDZ, eye swelling Current Medications Current Outpatient Medications on File Prior to Visit Medication Sig ondansetron orally disintegrating (ZOFRAN ODT) 4 mg disintegrating tablet Take 1 tablet by mouth every 8 hours as needed for nausea/vomiting. topiramate (TOPAMAX) 100 mg tablet Take 1 tablet by mouth daily at bedtime. rOPINIRole (REQUIP) 1 mg tablet Take one tab by mouth before bed. cyanocobalamin (VITAMIN B-12) 1,000 mcg tab Take 1 tablet by mouth once daily. CPAP Mask fitting and 30 day download for autopap 10 -20 cm H2O & formal mask refitting for medical necessity & schedule with the RT, chin strap, head gear, humidity, heated tubing (SACHI), lifetime supplies. G47.33 JORDAN albuterol HFA (PROVENTIL HFA, VENTOLIN HFA) 90 mcg/actuation inhaler Inhale 2 Puffs as instructed every 4 hours as needed for wheezing/shortness of breath. sucralfate (CARAFATE) 1 gram tablet Take 1 tablet by mouth daily at bedtime. pantoprazole DR (PROTONIX) 40 mg tablet Take 1 tablet by mouth daily before breakfast. Take on empty stomach, 1/2 hr before meal. levothyroxine (SYNTHROID) 137 mcg tablet Take one daily Fri-Fri and two on Friday. rosuvastatin (CRESTOR) 40 mg tablet Take 1 tablet by mouth daily at bedtime. Fenofibrate (LOFIBRA) 54 mg tablet Take 1 tablet by mouth once daily. ezetimibe (ZETIA) 10 mg tablet Take 1 tablet by mouth once daily. topiramate (TOPAMAX) 50 mg tablet Take 1 tablet by mouth daily at bedtime. in addition to 100 mg qhs blood sugar diagnostic (BLOOD GLUCOSE TEST) test strip Test blood sugar(s) 1 times daily. Dx: Other DM Code R73.03 Insulin: No Lancets lancets Test blood sugar(s) 1 times daily. Dx: Other DM Code R73.03 Insulin: No ergocalciferol 50,000 unit capsule (VITAMIN D2, DRISDOL) Take one capsule twice a week (Fri and ) metFORMIN ER (GLUCOPHAGE XR) 500 mg 24 hr tablet Take 1 tablet by mouth daily with breakfast. amitriptyline (ELAVIL) 25 mg tablet Take 1 tablet by mouth daily at bedtime. aspirin, enteric coated (ASPIRIN, ENTERIC COATED) 81 mg EC tablet Take 1 tablet by mouth twice daily. (Patient taking differently: Take 81 mg by mouth. Takes every other day ) SUMAtriptan (IMITREX) 100 mg tablet 1/2 to 1 po at onset migraine. March rpt after 2 h prn recrrnce. Max 200mg/day and 10/mo lactase (LACTAID) 3,000 unit tablet Take 1 tablet by mouth three times daily with meals. acetaminophen (TYLENOL ARTHRITIS ORAL) Take 650 mg by mouth every 8 hours as needed. [place]-3 Fatty Acids 100 mg chew [place]-3 Fatty Acids [place]-3 Fatty Acids Active 2000 MG DAILY November 21, 2016 10:19am 11-21-2016 [facility] (47378) glucosamine/chondr mendoza A sod (OSTEO BI-FLEX ORAL) Take by mouth. turmeric/turmeric ext/pepr ext (TURMERIC-TURMERIC EXT-PEPPER) 500-3 mg cap Take by mouth. busPIRone (BUSPAR) 10 mg tablet Take 1 tablet by mouth as needed for Anxiety. Lactobacillus acidophilus (FLORAJEN) 460 mg (20 billion cell) cap Take 1 capsule by mouth once daily. COMPOUNDED PRESCRIPTION Wheeled rolator walker with ahnd breaks and seat, # 1, Dx:M19.071, Z91.071 ARIPiprazole (ABILIFY) 10 mg tablet Take 1 tablet by mouth once daily. DULoxetine (CYMBALTA) 30 mg capsule Take 1 capsule by mouth once daily. [facility] No current facility-administered medications on file prior to visit. Social History Social History Tobacco Use Smoking status: Former Smoker Types: Cigarettes Quit date: 01/07/2018 Years since quittin.1 Smokeless tobacco: Never Used Tobacco comment: used welbutrin Vaping Use Vaping Use: Never used Substance Use Topics Alcohol use: No Drug use: No Review of Symptoms REVIEW OF SYSTEMS See HPI EXAM: BP 122/86 (BP Site: Right Arm, BP Position: Sitting, BP Cuff Size: Large Adult) Pulse 80 Temp 37 C (98.6 F) Wt 93.9 kg (207 lb) BMI 36.67 kg/m General Appearance: Well appearing, alert, in no acute distress, well-hydrated, well nourished.. Back:no pain to palpation of vertebrae, no muscle tenderness, positive right flank pain. Abdomen: , Abdomen soft, slight tenderness suprapubically. No guarding. . Bowel sounds normal. No masses, organomegaly. Lungs: CTA on the right. faint crackles on the left lower base. Health Maintenance List COVID-19 VACCINE(1) Never done PAP TESTING due on 07/26/2021 HPV TESTING due on 07/26/2021 MAMMOGRAM due on 06/26/2022 ANNUAL PCP TEAM CHRONIC DISEASE VISIT due on 02/13/2023 DTAP,TDAP,TD(2 - Td or Tdap) due on 08/18/2023 DIABETES SCREEN due on 10/08/2024 LIPID SCREEN due on 08/16/2026 COLORECTAL CANCER SCREENING due on 08/13/2029 ONE PNEUMOVAX PRIOR TO AGE 65 Completed INFLUENZA Completed HEPATITIS C SCREENING Completed HIV SCREENING Completed SHINGRIX VACCINE Completed MENINGOCOCCAL CONJUGATE Aged Out Data reviewed A/P ASSESSMENT/PLAN: 1. Recurrent UTI (urinary tract infection) - ICD9: 599.0, ICD10: N39.0 (primary diagnosis) recurrent - Send urine for culture: Results pending - Begin treatment with doxy 100 mg BID for 10 days - Patient education for prevention given 2. Flank pain - ICD9: 789.09, ICD10: R10.9 Check - CT FLANK WO IVCON 3. Lung crackles - ICD9: 786.7, ICD10: R09.89 - Doxy as above. Signed Prescriptions Disp Refills doxycycline (VIBRA-TABS) 100 mg tablet 20 tablet 0 Sig: Take 1 tablet by mouth twice daily for 10 days. Keep f/u in early May sooner if issues. Patient advised if gets worse to go to ER. Kyle Sylvester MD documented in this encounter [facility] 02-25-2022 Miscellaneous Notes Labs placed See [email or web address] message. America Astorga Ma documented in this encounter [facility] 02-20-2022 History and physical note Procedure cancelled today, as she was on antibiotics for an active infection - her second round. She will reschedule when antibiotics have been completed. Jese Mejia MD [facility] documented in this encounter [facility] 02-16-2022 Miscellaneous Notes Explained to pt that culture would not be completed. Advised for her to finish abx and call back if still with urinary symptoms. Pt agreeable with plan. Jenna Archuleta Ma If already taking cipro culture will no be valid. Lab calls saying they are unable to process the urine culture. Urine was left in cup and not pulled in culture tube, sat out all night at room temp. Collected at lab. Patient is currently prescribed Cipro. Please advise if patient needs to repeat urine culture for a 3rd time. Jenna Archuleta Ma documented in this encounter [facility] 02-15-2022 Miscellaneous Notes Addressed in separate TE. Pharmacy requesting refill on this medication. Do you want to refill? America Astorga Ma documented in this encounter [facility] 02-15-2022 Miscellaneous Notes The following approved medication requests have been transmitted electronically. Signed Prescriptions Disp Refills ondansetron orally disintegrating (ZOFRAN ODT) 4 mg disintegrating tablet 30 tablet 1 Sig: Take 1 tablet by mouth every 8 hours as needed for nausea/vomiting. SACHI: No Authorizing Provider: KYLE SYLVESTER MD Last office visit: 02/13/22 F/u scheduled: 03/27/22 America Astorga Ma documented in this encounter [facility] 02-15-2022 Miscellaneous Notes Pt advised of same. She will give urine specimen and check with pharm for rx. 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 I will put in for a urine culture if able to do. Patient calling said her flank pain is worse. Patient asking if she can have rx sent to [facility] pharmacy. She was hoping she does not have to repeat the urine test. Patient phone number is [phone] if needed. Please advise Please see pt's message. Jennifer Nesbitt LPN documented in this encounter [facility] 02-14-2022 Miscellaneous Notes Spoke with pt to confirm medication was Cipro. Spoke with pharm and sent Dr Nga AGUIRRE regarding this. See TE from 02/14/22. Jennifer Nesbitt LPN documented in this encounter [facility] 02-13-2022 History of Present illness Narrative Chief Complaint Patient presents with: Recheck: CT/ possible UTI HPI Chanda Haq is a 61 year old female who presents here today for Above Complaints.. Patient was seen by Glass Or Mirror Inspector for Left Flank pain and CT ordered and completed. The CT showed no kidney stones, however it does show some diverticula in the colon but no diverticulitis. Was recommended that she continue to take the antibiotic as prescribed and may continue to take the Pyridium as needed. Patient is concerned that UTI may still be present due to having low back pain still. Denies any flank pain or dysuria. No further lower abdominal pain on the left with this. Some nausea but no vomiting. No fevers or chills. Past medical history, appointments, medications, allergies reviewed. Previous Medical History PAST MEDICAL HISTORY Diagnosis Date Acquired hypothyroidism 08/22/2015 ACUTE GASTRITIS W/O HEMORRHAGE 02/05/2006 Arthritis of right foot 09/02/2018 At high risk for falls 09/02/2018 Backache, unspecified 01/11/2013 Bipolar I disorder (HCC) 12/20/2005 Seeds Stinger at the [facility] Chronic pain of left knee 06/19/2019 Class 1 obesity due to excess calories without serious comorbidity with body mass index (BMI) of 33.0 to 33.9 in adult 03/03/2018 Current use of proton pump inhibitor 03/03/2018 Diaphragmatic hernia without mention of obstruction or gangrene 02/05/2006 Elevated hemoglobin A1c 06/29/2018 Encounter for screening mammogram for breast cancer 03/05/2019 Ex-smoker 08/22/2015 Started at age 14 and has smoked up to 1/2 a PPD, quit 12/2017 External hemorrhoids without mention of complication Gastroesophageal reflux disease with esophagitis 08/22/2015 Hearing loss Hearing aids in both ears. History of transient ischemic attack (TIA) 11/05/2019 Incontinence 02/20/[address] Jordan Irritable bowel syndrome with constipation 03/03/2018 Lactose intolerance 03/05/2019 Lung nodules 12/11/2017 CT 12/11/[address] 05/2018 stable needs repeat in 2 yrs Medicare annual wellness visit, subsequent 03/03/2018 Medicare Part B: 06/17/2001 last done: 03/05/2019 Migraine without aura and without status migrainosus, not intractable 05/22/2016 Mixed hyperlipidemia 08/22/2015 JORDAN (obstructive sleep apnea) 09/02/2018 DME DASCO Osteopenia of lumbar spine 11/27/2020 Borderline on DXA 11/2020 Other constipation 07/21/2019 Overactive bladder 05/30/2015 Primary insomnia 07/30/2018 Primary osteoarthritis of left knee 11/05/2019 RLS (restless legs syndrome) 06/04/2019 Smoker 08/22/2015 Started at age 14 and has smoked up to 1/2 a PPD, quit 12/2017 Vitamin D deficiency 01/25/2020 Previous Surgical History PAST SURGICAL HISTORY Procedure Laterality Date ARTHROSCOPY KNEE DIAGNOSTIC W/WO SYNOVIAL BX SPX Arthroscopy, knee, Left ARTHRS KNE SURG W/MENISCECTOMY MED/LAT W/SHVG Left 12/01/2019 COLONOSCOPY 08/11/2019 one polyp, repeat 10 yrs COLONOSCOPY FLX DX W/COLLJ SPEC WHEN PFRMD 02/28/2009 COLONOSCOPY FLX DX W/COLLJ SPEC WHEN PFRMD 02/04/2018 Colonoscopy EGD 03/24/2018 Dr. Garcia reported as normal. Neg for Hpylori and celiac. ESOPHAGOGASTRODUODENOSCOPY TRANSORAL DIAGNOSTIC 02/05/2006 EGD ESOPHAGOGASTRODUODENOSCOPY TRANSORAL DIAGNOSTIC 12/21/2014 EGD ESOPHAGOGASTRODUODENOSCOPY TRANSORAL DIAGNOSTIC 03/29/2015 EGD EXC/DSTRJ LINGUAL TONSIL ANY METHOD SPX remote FECAL OCCULT BLOOD TEST 12/19/2016 negative PAST SURGICAL HISTORY OF 10/05/2015 TOT monarc sling PAST SURGICAL HISTORY OF 10/05/2015 Cystourethroscopy PAST SURGICAL HISTORY OF Left 05/03/2016 ulnar nerve decompression STRESS TEST 12/10/2016 normal TOTAL KNEE REPLACEMENT Left 10/18/2020 Left Total knee arthrosplasty Family History FAMILY HISTORY Problem Relation Age of Onset Alcohol/Drug Father Alcoholic Cancer Mother Hysterectomy Heart Attack Brother Diabetes Brother Coronary Artery Disease Son Hyperlipidemia Son Hypertension Son Hyperlipidemia Son No Known Problems Son Heart Maternal Grandfather Diabetes Maternal Grandfather Heart Maternal Grandmother Hearing Loss Maternal Grandmother Headache Maternal Grandmother Diabetes Maternal Grandmother Stroke Maternal Grandmother other (Leukemia) Sister shortly after No Known Problems Paternal Grandmother No Known Problems Paternal Grandfather Patient Allergies ALLERGIES Allergen Reactions Ditropan [Oxybutyni* Other: See Comments Nausea,vomiting Ibuprofen GI Upset Tylenol [Acetaminop* GI Upset diarrhea with high doses Cogentin [Benztropi* Other: See Comments Blurred vision Depakote [Divalproe* GI Upset Flagyl [Metronidazo* GI Upset Nausea and vomiting Nexium [Esomeprazol* Unknown Percocet [Oxycodone* Other: See Comments Nausea, RDZ, eye swelling Current Medications Current Outpatient Medications on File Prior to Visit Medication Sig phenazopyridine (PYRIDIUM) 200 mg tablet Take 1 tablet by mouth three times daily as needed for up to 10 days. topiramate (TOPAMAX) 100 mg tablet Take 1 tablet by mouth daily at bedtime. rOPINIRole (REQUIP) 1 mg tablet Take one tab by mouth before bed. cyanocobalamin (VITAMIN B-12) 1,000 mcg tab Take 1 tablet by mouth once daily. CPAP Mask fitting and 30 day download for autopap 10 -20 cm H2O & formal mask refitting for medical necessity & schedule with the RT, chin strap, head gear, humidity, heated tubing (SACHI), lifetime supplies. G47.33 JORDAN albuterol HFA (PROVENTIL HFA, VENTOLIN HFA) 90 mcg/actuation inhaler Inhale 2 Puffs as instructed every 4 hours as needed for wheezing/shortness of breath. sucralfate (CARAFATE) 1 gram tablet Take 1 tablet by mouth daily at bedtime. pantoprazole DR (PROTONIX) 40 mg tablet Take 1 tablet by mouth daily before breakfast. Take on empty stomach, 1/2 hr before meal. levothyroxine (SYNTHROID) 137 mcg tablet Take one daily and two on Friday. rosuvastatin (CRESTOR) 40 mg tablet Take 1 tablet by mouth daily at bedtime. Fenofibrate (LOFIBRA) 54 mg tablet Take 1 tablet by mouth once daily. ezetimibe (ZETIA) 10 mg tablet Take 1 tablet by mouth once daily. topiramate (TOPAMAX) 50 mg tablet Take 1 tablet by mouth daily at bedtime. in addition to 100 mg qhs blood sugar diagnostic (BLOOD GLUCOSE TEST) test strip Test blood sugar(s) 1 times daily. Dx: Other DM Code R73.03 Insulin: No Lancets lancets Test blood sugar(s) 1 times daily. Dx: Other DM Code R73.03 Insulin: No ergocalciferol 50,000 unit capsule (VITAMIN D2, DRISDOL) Take one capsule twice a week (Fri and ) metFORMIN ER (GLUCOPHAGE XR) 500 mg 24 hr tablet Take 1 tablet by mouth daily with breakfast. amitriptyline (ELAVIL) 25 mg tablet Take 1 tablet by mouth daily at bedtime. aspirin, enteric coated (ASPIRIN, ENTERIC COATED) 81 mg EC tablet Take 1 tablet by mouth twice daily. (Patient taking differently: Take 81 mg by mouth. Takes every other day ) SUMAtriptan (IMITREX) 100 mg tablet 1/2 to 1 po at onset migraine. May rpt after 2 h prn recrrnce. Max 200mg/day and 10/mo lactase (LACTAID) 3,000 unit tablet Take 1 tablet by mouth three times daily with meals. ondansetron orally disintegrating (ZOFRAN ODT) 4 mg disintegrating tablet Take 1 tablet by mouth every 8 hours as needed for Nausea/Vomiting. acetaminophen (TYLENOL ARTHRITIS ORAL) Take 650 mg by mouth every 8 hours as needed. [place]-3 Fatty Acids 100 mg chew [place]-3 Fatty Acids [place]-3 Fatty Acids Active 2000 MG DAILY November 21, 2016 10:19am 11-21-2016 [facility] ([id number]) glucosamine/chondr mendoza A sod (OSTEO BI-FLEX ORAL) Take by mouth. turmeric/turmeric ext/pepr ext (TURMERIC-TURMERIC EXT-PEPPER) 500-3 mg cap Take by mouth. busPIRone (BUSPAR) 10 mg tablet Take 1 tablet by mouth as needed for Anxiety. Lactobacillus acidophilus (FLORAJEN) 460 mg (20 billion cell) cap Take 1 capsule by mouth once daily. melatonin 10 mg tab Take by mouth. (Patient not taking: Reported on 02/06/2022 ) COMPOUNDED PRESCRIPTION Wheeled rolator walker with ahnd breaks and seat, # 1, Dx:M19.071, Z91.071 ARIPiprazole (ABILIFY) 10 mg tablet Take 1 tablet by mouth once daily. DULoxetine (CYMBALTA) 30 mg capsule Take 1 capsule by mouth once daily. [facility] No current facility-administered medications on file prior to visit. Social History Social History Tobacco Use Smoking status: Former Smoker Types: Cigarettes Quit date: 01/07/2018 Years since quittin.1 Smokeless tobacco: Never Used Tobacco comment: used welbutrin Vaping Use Vaping Use: Never used Substance Use Topics Alcohol use: No Drug use: No Review of Symptoms REVIEW OF SYSTEMS See HPI EXAM: BP 124/76 Pulse 68 Resp 14 Wt 94.3 kg (208 lb) BMI 36.85 kg/m General Appearance: Well appearing, alert, in no acute distress, well-hydrated, well nourished.. Back: leftt CVA tenderness to percussion Abdomen: Normal abdominal exam, Abdomen soft, non-tender. Bowel sounds normal. No masses, organomegaly. Health Maintenance List COVID-19 VACCINE(1) Never done PAP TESTING due on 07/26/2021 HPV TESTING due on 07/26/2021 MAMMOGRAM due on 06/26/2022 ANNUAL PCP TEAM CHRONIC DISEASE VISIT due on 02/06/2023 DTAP,TDAP,TD(2 - Td or Tdap) due on 08/18/2023 DIABETES SCREEN due on 10/08/2024 LIPID SCREEN due on 08/16/2026 COLORECTAL CANCER SCREENING due on 08/13/2029 ONE PNEUMOVAX PRIOR TO AGE 65 Completed INFLUENZA Completed HEPATITIS C SCREENING Completed HIV SCREENING Completed SHINGRIX VACCINE Completed MENINGOCOCCAL CONJUGATE Aged Out Data reviewed Component Latest Ref Rng & Units 02/13/2022 GLUCOSE UA (POCT) Negative mg/dL Negative BILIRUBIN UA (POCT) Negative Negative KETONE UA (POCT) Negative mg/dL Negative SPECIFIC GRAVITY UA (POCT) 1.005 - 1.030 1.020 HEMOGLOBIN/BLOOD UA (POCT) Negative Negative PH UA (POCT) 4.5 - 8.0 7.0 PROTEIN UA (POCT) Negative mg/dL Negative UROBILINOGEN UA (POCT) Normal E.U./dL 0.2 NITRITE UA (POCT) Negative Negative LEUKOCYTES UA (POCT) Negative Small (A) COLOR UA (POCT) Yellow CLARITY UA (POCT) Clear A/P ASSESSMENT/PLAN: 1. Low back pain without sciatica, unspecified back pain laterality, unspecified chronicity - ICD9: 724.2, ICD10: M54.50 (primary diagnosis) See #2 - UA DIP, URINE (POC) 2. Acute cystitis without hematuria - ICD9: 595.0, ICD10: N30.00 - Will treat with Cipro 500 mg twice a day which will also cover for possible Pylo. - Urine will be sent for culture. Signed Prescriptions Disp Refills ciprofloxacin HCl (CIPRO) 500 mg tablet 20 tablet 0 Sig: Take 1 tablet by mouth twice daily for 10 days. Kyle Sylvester MD documented in this encounter [facility] 02-07-2022 Miscellaneous Notes Pt notified via [email or web address] [place] [facility] Can you please call the patient and let her know that I reviewed the CT scan results. The CT showed no kidney stones, however it does show some diverticula in the colon but no diverticulitis. I would recommend that she continue to take the antibiotic as prescribed and may continue to take the Pyridium as needed. If symptoms do not improve she needs to follow-up. Please let me know if she has any questions. Thank you. Valencia Mccollum APRN.CNP documented in this encounter [facility] 02-06-2022 History of Present illness Narrative Radiology Service Progress Note PATIENT NAME: Chanda Haq DATE OF SERVICE: February 06, 2022 TIME: 4:02 PM PATIENT IDENTITY VERIFICATION COMPLETED USING TWO (2) IDENTIFIERS: Name and Date of confirmed by patient verbally. FALL SCREENING: Has the patient had 2 falls in the last year or 1 fall with injury or currently using an Ambulatory Assistive Device (Walker, Cane, Wheelchair, Crutches, etc.)? No PATIENT GENDER DATA: Female. status: : No status: NO. PATIENT RELEVANT IMPLANT DATA REVIEWED: Not Applicable RADIOLOGY DEPARTMENT: CT; Exam(s) Completed: Abdomen/Pelvis PERIPHERAL IV DATA: Not applicable SIGNED BY: RT Abdulaziz(R) February 06, 2022 4:02 PM documented in this encounter [facility] 02-06-2022 Instructions Valencia Mccollum APRN.CNP - 02/06/2022 2:46 PM EDT 1.) Schedule appointment for CT scan Nico. 2.) Continue to take antibiotics as prescribed. 3.) May continue to use the pyridium to help with pain with urination. 4.) Stay well hydrated. 5.) Red flag symptoms go to ER. 6.) Follow up pending test results or sooner as needed. documented in this encounter [facility] 02-06-2022 History of Present illness Narrative This is a 61 year old female who presents today with: Patient presents with: Follow Up: [facility] ER follow up for back pain HISTORY OF PRESENT ILLNESS: Chanda Haq is a 61 year old female. Patient presents with: Follow Up: [facility] ER follow up for back pain Here in the office for flank pain and hospital follow up. HOSPITAL/ER FOLLOW UP: Reason for visit: Dysuria. Left sided back pain. Which facility: [facility] ER Date of visit: 02/03/2022 Diagnosis: UTI Testing done: UA positive for leukocytes and +1 bacteria. Urine culture came back positive for E. coli, 80,000- 200,000. Treatment given: Cephalexin 500 mg 3 times daily for 7 days and Pyridium as needed. Current symptoms: Complaining of back pain on left side and groin. Will wax and wane. Refers that her back pain has gotten worse. Refer she never had dysuria. No fever. Drinking plenty of water. Pain rated 9/10. PAST MEDICAL HISTORY: PAST MEDICAL HISTORY Diagnosis Date Acquired hypothyroidism 08/22/2015 ACUTE GASTRITIS W/O HEMORRHAGE 02/05/2006 Arthritis of right foot 09/02/2018 At high risk for falls 09/02/2018 Backache, unspecified 01/11/2013 Bipolar I disorder (HCC) 12/20/2005 Seeds Stinger at [facility] Chronic pain of left knee 06/19/2019 Class 1 obesity due to excess calories without serious comorbidity with body mass index (BMI) of 33.0 to 33.9 in adult 03/03/2018 Current use of proton pump inhibitor 03/03/2018 Diaphragmatic hernia without mention of obstruction or gangrene 02/05/2006 Elevated hemoglobin A1c 06/29/2018 Encounter for screening mammogram for breast cancer 03/05/2019 Ex-smoker 08/22/2015 Started at age 14 and has smoked up to 1/2 a PPD, quit 12/2017 External hemorrhoids without mention of complication Gastroesophageal reflux disease with esophagitis 08/22/2015 Hearing loss Hearing aids in both ears. History of transient ischemic attack (TIA) 11/05/2019 Incontinence 02/20/[address] Jordan Irritable bowel syndrome with constipation 03/03/2018 Lactose intolerance 03/05/2019 Lung nodules 12/11/2017 CT 12/11/[address] 05/2018 stable needs repeat in 2 yrs Medicare annual wellness visit, subsequent 03/03/2018 Medicare Part B: 06/17/2001 last done: 03/05/2019 Migraine without aura and without status migrainosus, not intractable 05/22/2016 Mixed hyperlipidemia 08/22/2015 JORDAN (obstructive sleep apnea) 09/02/2018 DME DASCO Osteopenia of lumbar spine 11/27/2020 Borderline on DXA 11/2020 Other constipation 07/21/2019 Overactive bladder 05/30/2015 Primary insomnia 07/30/2018 Primary osteoarthritis of left knee 11/05/2019 RLS (restless legs syndrome) 06/04/2019 Smoker 08/22/2015 Started at age 14 and has smoked up to 1/2 a PPD, quit 12/2017 Vitamin D deficiency 01/25/2020 PAST SURGICAL HISTORY Procedure Laterality Date ARTHROSCOPY KNEE DIAGNOSTIC W/WO SYNOVIAL BX SPX 1990s Arthroscopy, knee, Left ARTHRS KNE SURG W/MENISCECTOMY MED/LAT W/SHVG Left 12/01/2019 COLONOSCOPY 08/11/2019 one polyp, repeat 10 yrs COLONOSCOPY FLX DX W/COLLJ SPEC WHEN PFRMD 02/28/2009 COLONOSCOPY FLX DX W/COLLJ SPEC WHEN PFRMD 02/04/2018 Colonoscopy EGD 03/24/2018 Dr. Garcia reported as normal. Neg for Hpylori and celiac. ESOPHAGOGASTRODUODENOSCOPY TRANSORAL DIAGNOSTIC 02/05/2006 EGD ESOPHAGOGASTRODUODENOSCOPY TRANSORAL DIAGNOSTIC 12/21/2014 EGD ESOPHAGOGASTRODUODENOSCOPY TRANSORAL DIAGNOSTIC 03/29/2015 EGD EXC/DSTRJ LINGUAL TONSIL ANY METHOD SPX remote FECAL OCCULT BLOOD TEST 12/19/2016 negative PAST SURGICAL HISTORY OF 10/05/2015 TOT monarc sling PAST SURGICAL HISTORY OF 10/05/2015 Cystourethroscopy PAST SURGICAL HISTORY OF Left 05/03/2016 ulnar nerve decompression STRESS TEST 12/10/2016 normal TOTAL KNEE REPLACEMENT Left 10/18/2020 Left Total knee arthrosplasty ALLERGIES Ditropan [Oxybutynin Chloride], Ibuprofen, Tylenol [Acetaminophen], Cogentin [Benztropine Mesylate], Depakote [Divalproex Sodium], Flagyl [Metronidazole Hcl], Nexium [Esomeprazole Magnesium], and Percocet [Oxycodone-Acetaminophen] MEDICATIONS Current Outpatient Medications Medication Sig topiramate (TOPAMAX) 100 mg tablet Take 1 tablet by mouth daily at bedtime. rOPINIRole (REQUIP) 1 mg tablet Take one tab by mouth before bed. cyanocobalamin (VITAMIN B-12) 1,000 mcg tab Take 1 tablet by mouth once daily. CPAP Mask fitting and 30 day download for autopap 10 -20 cm H2O & formal mask refitting for medical necessity & schedule with the RT, chin strap, head gear, humidity, heated tubing (SACHI), lifetime supplies. G47.33 JORDAN albuterol HFA (PROVENTIL HFA, VENTOLIN HFA) 90 mcg/actuation inhaler Inhale 2 Puffs as instructed every 4 hours as needed for wheezing/shortness of breath. sucralfate (CARAFATE) 1 gram tablet Take 1 tablet by mouth daily at bedtime. pantoprazole DR (PROTONIX) 40 mg tablet Take 1 tablet by mouth daily before breakfast. Take on empty stomach, 1/2 hr before meal. levothyroxine (SYNTHROID) 137 mcg tablet Take one daily and two on Friday. rosuvastatin (CRESTOR) 40 mg tablet Take 1 tablet by mouth daily at bedtime. Fenofibrate (LOFIBRA) 54 mg tablet Take 1 tablet by mouth once daily. ezetimibe (ZETIA) 10 mg tablet Take 1 tablet by mouth once daily. topiramate (TOPAMAX) 50 mg tablet Take 1 tablet by mouth daily at bedtime. in addition to 100 mg qhs blood sugar diagnostic (BLOOD GLUCOSE TEST) test strip Test blood sugar(s) 1 times daily. Dx: Other DM Code R73.03 Insulin: No Lancets lancets Test blood sugar(s) 1 times daily. Dx: Other DM Code R73.03 Insulin: No ergocalciferol 50,000 unit capsule (VITAMIN D2, DRISDOL) Take one capsule twice a week (Fri and ) metFORMIN ER (GLUCOPHAGE XR) 500 mg 24 hr tablet Take 1 tablet by mouth daily with breakfast. amitriptyline (ELAVIL) 25 mg tablet Take 1 tablet by mouth daily at bedtime. aspirin, enteric coated (ASPIRIN, ENTERIC COATED) 81 mg EC tablet Take 1 tablet by mouth twice daily. (Patient taking differently: Take 81 mg by mouth. Takes every other day ) SUMAtriptan (IMITREX) 100 mg tablet 1/2 to 1 po at onset migraine. May rpt after 2 h prn recrrnce. Max 200mg/day and 10day/mo lactase (LACTAID) 3,000 unit tablet Take 1 tablet by mouth three times daily with meals. ondansetron orally disintegrating (ZOFRAN ODT) 4 mg disintegrating tablet Take 1 tablet by mouth every 8 hours as needed for Nausea/Vomiting. acetaminophen (TYLENOL ARTHRITIS ORAL) Take 650 mg by mouth every 8 hours as needed. [place]-3 Fatty Acids 100 mg chew [place]-3 Fatty Acids [place]-3 Fatty Acids Active 2000 MG DAILY November 21, 2016 10:19am 11-21-2016 [facility] ([id number]) glucosamine/chondr mendoza A sod (OSTEO BI-FLEX ORAL) Take by mouth. turmeric/turmeric ext/pepr ext (TURMERIC-TURMERIC EXT-PEPPER) 500-3 mg cap Take by mouth. busPIRone (BUSPAR) 10 mg tablet Take 1 tablet by mouth as needed for Anxiety. Lactobacillus acidophilus (FLORAJEN) 460 mg (20 billion cell) cap Take 1 capsule by mouth once daily. melatonin 10 mg tab Take by mouth. COMPOUNDED PRESCRIPTION Wheeled rolator walker with ahnd breaks and seat, # 1, Dx:M19.071, Z91.071 ARIPiprazole (ABILIFY) 10 mg tablet Take 1 tablet by mouth once daily. DULoxetine (CYMBALTA) 30 mg capsule Take 1 capsule by mouth once daily. [facility] No current facility-administered medications for this visit. FAMILY HISTORY Problem Relation Age of Onset Alcohol/Drug Father Alcoholic Cancer Mother Hysterectomy Heart Attack Brother Diabetes Brother Coronary Artery Disease Son Hyperlipidemia Son Hypertension Son Hyperlipidemia Son No Known Problems Son Heart Maternal Grandfather Diabetes Maternal Grandfather Heart Maternal Grandmother Hearing Loss Maternal Grandmother Headache Maternal Grandmother Diabetes Maternal Grandmother Stroke Maternal Grandmother other (Leukemia) Sister shortly after No Known Problems Paternal Grandmother No Known Problems Paternal Grandfather Social History Tobacco Use Smoking status: Former Smoker Types: Cigarettes Quit date: 01/07/2018 Years since quittin.0 Smokeless tobacco: Never Used Tobacco comment: used welbutrin Vaping Use Vaping Use: Never used Substance Use Topics Alcohol use: No Drug use: No REVIEW OF SYSTEMS GENERAL: No weight loss, malaise or fevers/chills HEENT: Negative for frequent or significant headaches, No changes in hearing or vision. NECK: Negative for lumps, goiter, pain and significant neck swelling RESPIRATORY: Negative for cough, hemoptysis, wheezing, dyspnea or shortness of breath CARDIOVASCULAR: Negative for chest pain, leg swelling, orthopnea, or palpitations GI: No nausea, vomiting, or diarrhea/constipation. No hematochezia/melena. No heartburn or reflux symptoms. : + left flank pain MUSCULOSKELETAL: Negative for joint pain or swelling. SKIN: Negative for lesions, rash, and itching ENDOCRINE: Negative for cold or heat intolerance, polyuria, polydipsia and goiter NEURO: No history of headaches, syncope, paralysis, seizures or tremors MOOD: Negative for depression, anxiety, or suicidal ideation. EXAM: BP 110/74 Pulse 68 Resp 16 Wt 92.5 kg (204 lb) SpO2 96% BMI 36.14 kg/m PHYSICAL EXAM: General Appearance: Well appearing, alert, in no acute distress, well-hydrated, well nourished. Skin: Skin color, texture, turgor normal, no suspicious rashes or lesions. Head: Normocephalic, no masses, lesions, tenderness or abnormalities. Eyes: Anicteric sclera. Extraocular movements are intact. Lungs: Lungs clear to auscultation. No wheezing, rhonchi, rales. Heart: RRR without murmur, gallop, or rubs. No ectopy. Abdomen: Abdomen soft, non-tender. Bowel sounds normal. No masses, organomegaly, Positive findings: Left CVA tenderness. Extremities: No deformities, edema, skin discoloration, clubbing or cyanosis. Good capillary refill. Peripheral Pulses: Normal, Capillary refill <2secs, strong peripheral pulses, Pulses palpable. UA: + Glucose, protein, Nitrates. ASSESSMENT/PLAN: 1. Left flank pain - ICD9: 789.09, ICD10: R10.9 (primary diagnosis) - Work up with CT Flank - Continue Cephalexin, take as prescribed. - Red flag symptoms go to ER. - CT FLANK WO IVCON 2. History of UTI - ICD9: V13.02, ICD10: Z87.440 - Refill provided. - PHENAZOPYRIDINE 200 MG TABLET Follow up pending test results Discussed treatment plan and patient voices understanding. Patient's questions answered appropriately. Medications and potential side effects were discussed and patient voices understanding. Valencia Mccollum APRN.DATABASE SECURITY EXPERT This note was partially generated using [employer] voice recognition system. Note was reviewed for accuracy. There may be minor misspellings or grammar miscues with Dragon voice recognition. documented in this encounter [facility] 08-07-2021 Miscellaneous Notes Faxed [employer] ([place] document Brando Atkins to [phone], filed [facility] office. Tami Zuñiga LPN documented in this encounter [facility] documented as of this encounter (statuses as of 02/06/2022) [facility] History of Past illness Narrative* Problem Noted Date Resolved Date Ulcer of esophagus without bleeding 03/29/2015 03/29/2015 Dysphagia, unspecified(787.20) 12/21/2014 0 12/21/2014 Migraine without aura 08/27/2005 12/10/2007 documented as of this encounter (statuses as of 02/07/2022) [facility] History of Past illness Narrative* Problem Noted Date Resolved Date Ulcer of esophagus without bleeding 03/29/2015 03/29/2015 Dysphagia, unspecified(787.20) 12/21/2014 0 12/21/2014 Migraine without aura 08/27/2005 12/10/2007 documented as of this encounter (statuses as of 02/07/2022) [facility] History of Past illness Narrative* Problem Noted Date Resolved Date Ulcer of esophagus without bleeding 03/29/2015 03/29/2015 Dysphagia, unspecified(787.20) 12/21/2014 0 12/21/2014 Migraine without aura 08/27/2005 12/10/2007 documented as of this encounter (statuses as of 02/13/2022) [facility] History of Past illness Narrative* Problem Noted Date Resolved Date Ulcer of esophagus without bleeding 03/29/2015 03/29/2015 Dysphagia, unspecified(787.20) 12/21/2014 0 12/21/2014 Migraine without aura 08/27/2005 12/10/2007 documented as of this encounter (statuses as of 02/14/2022) [address]-2015 History of Past illness Narrative* Problem Noted Date Resolved Date Ulcer of esophagus without bleeding 03/29/2015 03/29/2015 Dysphagia, unspecified(787.20) 12/21/2014 0 12/21/2014 Migraine without aura 08/27/2005 12/10/2007 documented as of this encounter (statuses as of 02/15/2022) [address]13-2015 History of Past illness Narrative* Problem Noted Date Resolved Date Ulcer of esophagus without bleeding 03/29/2015 03/29/2015 Dysphagia, unspecified(787.20) 12/21/2014 0 12/21/2014 Migraine without aura 08/27/2005 12/10/2007 documented as of this encounter (statuses as of 02/15/2022) [address]13-2015 History of Past illness Narrative* Problem Noted Date Resolved Date Ulcer of esophagus without bleeding 03/29/2015 03/29/2015 Dysphagia, unspecified(787.20) 12/21/2014 0 12/21/2014 Migraine without aura 08/27/2005 12/10/2007 documented as of this encounter (statuses as of 02/15/2022) [address]2015 History of Past illness Narrative* Problem Noted Date Resolved Date Ulcer of esophagus without bleeding 03/29/2015 03/29/2015 Dysphagia, unspecified(787.20) 12/21/2014 0 12/21/2014 Migraine without aura 08/27/2005 12/10/2007 documented as of this encounter (statuses as of 02/16/2022) [address]2015 History of Past illness Narrative* Problem Noted Date Resolved Date Ulcer of esophagus without bleeding 03/29/2015 03/29/2015 Dysphagia, unspecified(787.20) 12/21/2014 0 12/21/2014 Migraine without aura 08/27/2005 12/10/2007 documented as of this encounter (statuses as of 02/20/2022) [address]2015 History of Past illness Narrative* Problem Noted Date Resolved Date Ulcer of esophagus without bleeding 03/29/2015 03/29/2015 Dysphagia, unspecified(787.20) 12/21/2014 0 12/21/2014 Migraine without aura 08/27/2005 12/10/2007 documented as of this encounter (statuses as of 02/21/2022) [address]13-2015 History of Past illness Narrative* Problem Noted Date Resolved Date Ulcer of esophagus without bleeding 03/29/2015 03/29/2015 Dysphagia, unspecified(787.20) 12/21/2014 0 12/21/2014 Migraine without aura 08/27/2005 12/10/2007 documented as of this encounter (statuses as of 02/25/2022) [address]13-2015 History of Past illness Narrative* Problem Noted Date Resolved Date Ulcer of esophagus without bleeding 03/29/2015 03/29/2015 Dysphagia, unspecified(787.20) 12/21/2014 0 12/21/2014 Migraine without aura 08/27/2005 12/10/2007 documented as of this encounter (statuses as of 03/02/2022) [address]13-2015 History of Past illness Narrative* Problem Noted Date Resolved Date Ulcer of esophagus without bleeding 03/29/2015 03/29/2015 Dysphagia, unspecified(787.20) 12/21/2014 0 12/21/2014 Migraine without aura 08/27/2005 12/10/2007 documented as of this encounter (statuses as of 03/04/2022) [address]13-2015 History of Past illness Narrative* Problem Noted Date Resolved Date Ulcer of esophagus without bleeding 03/29/2015 03/29/2015 Dysphagia, unspecified(787.20) 12/21/2014 0 12/21/2014 Migraine without aura 08/27/2005 12/10/2007 documented as of this encounter (statuses as of 03/05/2022) [facility]13-2015 History of Past illness Narrative* Problem Noted Date Resolved Date Ulcer of esophagus without bleeding 03/29/2015 03/29/2015 Dysphagia, unspecified(787.20) 12/21/2014 0 12/21/2014 Migraine without aura 08/27/2005 12/10/2007 documented as of this encounter (statuses as of 03/05/2022) [address]13-2015 History of Past illness Narrative* Problem Noted Date Resolved Date Ulcer of esophagus without bleeding 03/29/2015 03/29/2015 Dysphagia, unspecified(787.20) 12/21/2014 0 12/21/2014 Migraine without aura 08/27/2005 12/10/2007 documented as of this encounter (statuses as of 03/11/2022) [address]13-2015 History of Past illness Narrative* Problem Noted Date Resolved Date Ulcer of esophagus without bleeding 03/29/2015 03/29/2015 Dysphagia, unspecified(787.20) 12/21/2014 0 12/21/2014 Migraine without aura 08/27/2005 12/10/2007 documented as of this encounter (statuses as of 03/15/2022) [address]13-2015 History of Past illness Narrative* Problem Noted Date Resolved Date Ulcer of esophagus without bleeding 03/29/2015 03/29/2015 Dysphagia, unspecified(787.20) 12/21/2014 0 12/21/2014 Migraine without aura 08/27/2005 12/10/2007 documented as of this encounter (statuses as of 03/19/2022) [facility]05[facility]13-2015 History of Past illness Narrative* Problem Noted Date Resolved Date Ulcer of esophagus without bleeding 03/29/2015 03/29/2015 Dysphagia, unspecified(787.20) 12/21/2014 0 12/21/2014 Migraine without aura 08/27/2005 12/10/2007 documented as of this encounter (statuses as of 03/26/2022) [facility]13[facility]2015 History of Past illness Narrative* Problem Noted Date Resolved Date Ulcer of esophagus without bleeding 03/29/2015 03/29/2015 Dysphagia, unspecified(787.20) 12/21/2014 0 12/21/2014 Migraine without aura 08/27/2005 12/10/2007 documented as of this encounter (statuses as of 03/28/2022) [facility]13[facility]2015 History of Past illness Narrative* Problem Noted Date Resolved Date Ulcer of esophagus without bleeding 03/29/2015 03/29/2015 Dysphagia, unspecified(787.20) 12/21/2014 0 12/21/2014 Migraine without aura 08/27/2005 12/10/2007 documented as of this encounter (statuses as of 03/29/2022) [address]13-2015 History of Past illness Narrative* Problem Noted Date Resolved Date Ulcer of esophagus without bleeding 03/29/2015 03/29/2015 Dysphagia, unspecified(787.20) 12/21/2014 0 12/21/2014 Migraine without aura 08/27/2005 12/10/2007 documented as of this encounter (statuses as of 03/29/2022) [address]13[address]2015 History of Past illness Narrative* Problem Noted Date Resolved Date Ulcer of esophagus without bleeding 03/29/2015 03/29/2015 Dysphagia, unspecified(787.20) 12/21/2014 0 12/21/2014 Migraine without aura 08/27/2005 12/10/2007 documented as of this encounter (statuses as of 04/04/2022) [address]13[address]2015 History of Past illness Narrative* Problem Noted Date Resolved Date Ulcer of esophagus without bleeding 03/29/2015 03/29/2015 Dysphagia, unspecified(787.20) 12/21/2014 0 12/21/2014 Migraine without aura 08/27/2005 12/10/2007 documented as of this encounter (statuses as of 04/11/2022) [address]13[address]2015 History of Past illness Narrative* Problem Noted Date Resolved Date Ulcer of esophagus without bleeding 03/29/2015 03/29/2015 Dysphagia, unspecified(787.20) 12/21/2014 0 12/21/2014 Migraine without aura 08/27/2005 12/10/2007 documented as of this encounter (statuses as of 04/12/2022) [facility]13-2015 History of Past illness Narrative* Problem Noted Date Resolved Date Ulcer of esophagus without bleeding 03/29/2015 03/29/2015 Dysphagia, unspecified(787.20) 12/21/2014 0 12/21/2014 Migraine without aura 08/27/2005 12/10/2007 documented as of this encounter (statuses as of 04/16/2022) [address]13[address]2015 History of Past illness Narrative* Problem Noted Date Resolved Date Ulcer of esophagus without bleeding 03/29/2015 03/29/2015 Dysphagia, unspecified(787.20) 12/21/2014 0 12/21/2014 Migraine without aura 08/27/2005 12/10/2007 documented as of this encounter (statuses as of 04/16/2022) [address]13[address]2015 History of Past illness Narrative* Problem Noted Date Resolved Date Ulcer of esophagus without bleeding 03/29/2015 03/29/2015 Dysphagia, unspecified(787.20) 12/21/2014 0 12/21/2014 Migraine without aura 08/27/2005 12/10/2007 documented as of this encounter (statuses as of 04/16/2022) [facility]13[facility]2015 History of Past illness Narrative* Problem Noted Date Resolved Date Ulcer of esophagus without bleeding 03/29/2015 03/29/2015 Dysphagia, unspecified(787.20) 12/21/2014 0 12/21/2014 Migraine without aura 08/27/2005 12/10/2007 documented as of this encounter (statuses as of 04/16/2022) [address]13[address]2015 History of Past illness Narrative* Problem Noted Date Resolved Date Ulcer of esophagus without bleeding 03/29/2015 03/29/2015 Dysphagia, unspecified(787.20) 12/21/2014 0 12/21/2014 Migraine without aura 08/27/2005 12/10/2007 documented as of this encounter (statuses as of 04/18/2022) [address]13[address]2015 History of Past illness Narrative* Problem Noted Date Resolved Date Ulcer of esophagus without bleeding 03/29/2015 03/29/2015 Dysphagia, unspecified(787.20) 12/21/2014 0 12/21/2014 Migraine without aura 08/27/2005 12/10/2007 documented as of this encounter (statuses as of 04/18/2022) [address]13-2015 History of Past illness Narrative* Problem Noted Date Resolved Date Ulcer of esophagus without bleeding 03/29/2015 03/29/2015 Dysphagia, unspecified(787.20) 12/21/2014 0 12/21/2014 Migraine without aura 08/27/2005 12/10/2007 documented as of this encounter (statuses as of 04/23/2022) [facility]13[facility]2015 History of Past illness Narrative* Problem Noted Date Resolved Date Ulcer of esophagus without bleeding 03/29/2015 03/29/2015 Dysphagia, unspecified(787.20) 12/21/2014 0 12/21/2014 Migraine without aura 08/27/2005 12/10/2007 documented as of this encounter (statuses as of 04/23/2022) [address]13[address]2015 History of Past illness Narrative* Problem Noted Date Resolved Date Ulcer of esophagus without bleeding 03/29/2015 03/29/2015 Dysphagia, unspecified(787.20) 12/21/2014 0 12/21/2014 Migraine without aura 08/27/2005 12/10/2007 documented as of this encounter (statuses as of 04/29/2022) [facility]13[facility]2015 History of Past illness Narrative* Problem Noted Date Resolved Date Ulcer of esophagus without bleeding 03/29/2015 03/29/2015 Dysphagia, unspecified(787.20) 12/21/2014 0 12/21/2014 Migraine without aura 08/27/2005 12/10/2007 documented as of this encounter (statuses as of 05/08/2022) [facility]13[facility]2015 History of Past illness Narrative* Problem Noted Date Resolved Date Ulcer of esophagus without bleeding 03/29/2015 03/29/2015 Dysphagia, unspecified(787.20) 12/21/2014 0 12/21/2014 Migraine without aura 08/27/2005 12/10/2007 documented as of this encounter (statuses as of 05/09/2022) [address]13[address]2015 History of Past illness Narrative* Problem Noted Date Resolved Date Ulcer of esophagus without bleeding 03/29/2015 03/29/2015 Dysphagia, unspecified(787.20) 12/21/2014 0 12/21/2014 Migraine without aura 08/27/2005 12/10/2007 documented as of this encounter (statuses as of 05/09/2022) [facility]2015 History of Past illness Narrative* Problem Noted Date Resolved Date Ulcer of esophagus without bleeding 03/29/2015 03/29/2015 Dysphagia, unspecified(787.20) 12/21/2014 0 12/21/2014 Migraine without aura 08/27/2005 12/10/2007 documented as of this encounter (statuses as of 05/13/2022) [facility]2015 History of Past illness Narrative* Problem Noted Date Resolved Date Ulcer of esophagus without bleeding 03/29/2015 03/29/2015 Dysphagia, unspecified(787.20) 12/21/2014 0 12/21/2014 Migraine without aura 08/27/2005 12/10/2007 documented as of this encounter (statuses as of 05/16/2022) [address]13[address]2015 History of Past illness Narrative* Problem Noted Date Resolved Date Ulcer of esophagus without bleeding 03/29/2015 03/29/2015 Dysphagia, unspecified(787.20) 12/21/2014 0 12/21/2014 Migraine without aura 08/27/2005 12/10/2007 documented as of this encounter (statuses as of 05/17/2022) [address]13[address]2015 History of Past illness Narrative* Problem Noted Date Resolved Date Ulcer of esophagus without bleeding 03/29/2015 03/29/2015 Dysphagia, unspecified(787.20) 12/21/2014 0 12/21/2014 Migraine without aura 08/27/2005 12/10/2007 documented as of this encounter (statuses as of 05/17/2022) [address]13[address]2015 History of Past illness Narrative* Problem Noted Date Resolved Date Ulcer of esophagus without bleeding 03/29/2015 03/29/2015 Dysphagia, unspecified(787.20) 12/21/2014 0 12/21/2014 Migraine without aura 08/27/2005 12/10/2007 documented as of this encounter (statuses as of 05/27/2022) [address]13[address]2015 History of Past illness Narrative* Problem Noted Date Resolved Date Ulcer of esophagus without bleeding 03/29/2015 03/29/2015 Dysphagia, unspecified(787.20) 12/21/2014 0 12/21/2014 Migraine without aura 08/27/2005 12/10/2007 documented as of this encounter (statuses as of 05/27/2022) [address]13[address]2015 History of Past illness Narrative* Problem Noted Date Resolved Date Ulcer of esophagus without bleeding 03/29/2015 03/29/2015 Dysphagia, unspecified(787.20) 12/21/2014 0 12/21/2014 Migraine without aura 08/27/2005 12/10/2007 documented as of this encounter (statuses as of 05/28/2022) [address]13[address]2015 History of Past illness Narrative* Problem Noted Date Resolved Date Ulcer of esophagus without bleeding 03/29/2015 03/29/2015 Dysphagia, unspecified(787.20) 12/21/2014 0 12/21/2014 Migraine without aura 08/27/2005 12/10/2007 documented as of this encounter (statuses as of 06/06/2022) [facility]13[facility]2015 History of Past illness Narrative* Problem Noted Date Resolved Date Ulcer of esophagus without bleeding 03/29/2015 03/29/2015 Dysphagia, unspecified(787.20) 12/21/2014 0 12/21/2014 Migraine without aura 08/27/2005 12/10/2007 documented as of this encounter (statuses as of 06/07/2022) [facility]2015 History of Past illness Narrative* Problem Noted Date Resolved Date Ulcer of esophagus without bleeding 03/29/2015 03/29/2015 Dysphagia, unspecified(787.20) 12/21/2014 0 12/21/2014 Migraine without aura 08/27/2005 12/10/2007 documented as of this encounter (statuses as of 06/11/2022) [facility]2015 History of Past illness Narrative* Problem Noted Date Resolved Date Ulcer of esophagus without bleeding 03/29/2015 03/29/2015 Dysphagia, unspecified(787.20) 12/21/2014 0 12/21/2014 Migraine without aura 08/27/2005 12/10/2007 documented as of this encounter (statuses as of 06/12/2022) [facility]2015 History of Past illness Narrative* Problem Noted Date Resolved Date Ulcer of esophagus without bleeding 03/29/2015 03/29/2015 Dysphagia, unspecified(787.20) 12/21/2014 0 12/21/2014 Migraine without aura 08/27/2005 12/10/2007 documented as of this encounter (statuses as of 06/12/2022) [facility]2015 History of Past illness Narrative* Problem Noted Date Resolved Date Ulcer of esophagus without bleeding 03/29/2015 03/29/2015 Dysphagia, unspecified(787.20) 12/21/2014 0 12/21/2014 Migraine without aura 08/27/2005 12/10/2007 documented as of this encounter (statuses as of 06/20/2022) [address]13[address]2015 History of Past illness Narrative* Problem Noted Date Resolved Date Ulcer of esophagus without bleeding 03/29/2015 03/29/2015 Dysphagia, unspecified(787.20) 12/21/2014 0 12/21/2014 Migraine without aura 08/27/2005 12/10/2007 documented as of this encounter (statuses as of 06/21/2022) [facility]2015 History of Past illness Narrative* Problem Noted Date Resolved Date Ulcer of esophagus without bleeding 03/29/2015 03/29/2015 Dysphagia, unspecified(787.20) 12/21/2014 0 12/21/2014 Migraine without aura 08/27/2005 12/10/2007 documented as of this encounter (statuses as of 06/23/2022) [address]13-2015 History of Past illness Narrative* Problem Noted Date Resolved Date Ulcer of esophagus without bleeding 03/29/2015 03/29/2015 Dysphagia, unspecified(787.20) 12/21/2014 0 12/21/2014 Migraine without aura 08/27/2005 12/10/2007 documented as of this encounter (statuses as of 06/24/2022) [address]13-2015 History of Past illness Narrative* Problem Noted Date Resolved Date Ulcer of esophagus without bleeding 03/29/2015 03/29/2015 Dysphagia, unspecified(787.20) 12/21/2014 0 12/21/2014 Migraine without aura 08/27/2005 12/10/2007 documented as of this encounter (statuses as of 06/24/2022) [address]13-2015 History of Past illness Narrative* Problem Noted Date Resolved Date Ulcer of esophagus without bleeding 03/29/2015 03/29/2015 Dysphagia, unspecified(787.20) 12/21/2014 0 12/21/2014 Migraine without aura 08/27/2005 12/10/2007 documented as of this encounter (statuses as of 06/25/2022) [address]13[address]2015 History of Past illness Narrative* Problem Noted Date Resolved Date Ulcer of esophagus without bleeding 03/29/2015 03/29/2015 Dysphagia, unspecified(787.20) 12/21/2014 0 12/21/2014 Migraine without aura 08/27/2005 12/10/2007 documented as of this encounter (statuses as of 06/27/2022) [address]13-2015 History of Past illness Narrative* Problem Noted Date Resolved Date Ulcer of esophagus without bleeding 03/29/2015 03/29/2015 Dysphagia, unspecified(787.20) 12/21/2014 0 12/21/2014 Migraine without aura 08/27/2005 12/10/2007 documented as of this encounter (statuses as of 07/03/2022) [address]13[address]2015 History of Past illness Narrative* Problem Noted Date Resolved Date Ulcer of esophagus without bleeding 03/29/2015 03/29/2015 Dysphagia, unspecified(787.20) 12/21/2014 0 12/21/2014 Migraine without aura 08/27/2005 12/10/2007 documented as of this encounter (statuses as of 07/04/2022) [address]13-2015 History of Past illness Narrative* Problem Noted Date Resolved Date Ulcer of esophagus without bleeding 03/29/2015 03/29/2015 Dysphagia, unspecified(787.20) 12/21/2014 0 12/21/2014 Migraine without aura 08/27/2005 12/10/2007 documented as of this encounter (statuses as of 07/05/2022) [address]13[address]2015 History of Past illness Narrative* Problem Noted Date Resolved Date Ulcer of esophagus without bleeding 03/29/2015 03/29/2015 Dysphagia, unspecified(787.20) 12/21/2014 0 12/21/2014 Migraine without aura 08/27/2005 12/10/2007 documented as of this encounter (statuses as of 07/10/2022) [address]13[address]2015 History of Past illness Narrative* Problem Noted Date Resolved Date Ulcer of esophagus without bleeding 03/29/2015 03/29/2015 Dysphagia, unspecified(787.20) 12/21/2014 0 12/21/2014 Migraine without aura 08/27/2005 12/10/2007 documented as of this encounter (statuses as of 07/17/2022) [address]13[address]2015 History of Past illness Narrative* Problem Noted Date Resolved Date Ulcer of esophagus without bleeding 03/29/2015 03/29/2015 Dysphagia, unspecified(787.20) 12/21/2014 0 12/21/2014 Migraine without aura 08/27/2005 12/10/2007 documented as of this encounter (statuses as of 07/17/2022) [address]13[address]2015 History of Past illness Narrative* Problem Noted Date Resolved Date Ulcer of esophagus without bleeding 03/29/2015 03/29/2015 Dysphagia, unspecified(787.20) 12/21/2014 0 12/21/2014 Migraine without aura 08/27/2005 12/10/2007 documented as of this encounter (statuses as of 07/17/2022) [address]13[address]2015 History of Past illness Narrative* Problem Noted Date Resolved Date Ulcer of esophagus without bleeding 03/29/2015 03/29/2015 Dysphagia, unspecified(787.20) 12/21/2014 0 12/21/2014 Migraine without aura 08/27/2005 12/10/2007 documented as of this encounter (statuses as of 07/17/2022) [address]13[address]2015 History of Past illness Narrative* Problem Noted Date Resolved Date Ulcer of esophagus without bleeding 03/29/2015 03/29/2015 Dysphagia, unspecified(787.20) 12/21/2014 0 12/21/2014 Migraine without aura 08/27/2005 12/10/2007 documented as of this encounter (statuses as of 07/19/2022) [address]13[address]2015 History of Past illness Narrative* Problem Noted Date Resolved Date Ulcer of esophagus without bleeding 03/29/2015 03/29/2015 Dysphagia, unspecified(787.20) 12/21/2014 0 12/21/2014 Migraine without aura 08/27/2005 12/10/2007 documented as of this encounter (statuses as of 07/23/2022) [address]13[address]2015 History of Past illness Narrative* Problem Noted Date Resolved Date Ulcer of esophagus without bleeding 03/29/2015 03/29/2015 Dysphagia, unspecified(787.20) 12/21/2014 0 12/21/2014 Migraine without aura 08/27/2005 12/10/2007 documented as of this encounter (statuses as of 07/23/2022) [facility]2015 History of Past illness Narrative* Problem Noted Date Resolved Date Ulcer of esophagus without bleeding 03/29/2015 03/29/2015 Dysphagia, unspecified(787.20) 12/21/2014 0 12/21/2014 Migraine without aura 08/27/2005 12/10/2007 documented as of this encounter (statuses as of 07/31/2022) [address]13[address]2015 History of Past illness Narrative* Problem Noted Date Resolved Date Ulcer of esophagus without bleeding 03/29/2015 03/29/2015 Dysphagia, unspecified(787.20) 12/21/2014 0 12/21/2014 Migraine without aura 08/27/2005 12/10/2007 documented as of this encounter (statuses as of 08/05/2022) [facility]2015 History of Past illness Narrative* Problem Noted Date Resolved Date Ulcer of esophagus without bleeding 03/29/2015 03/29/2015 Dysphagia, unspecified(787.20) 12/21/2014 0 12/21/2014 Migraine without aura 08/27/2005 12/10/2007 documented as of this encounter (statuses as of 08/05/2022) [address]2015 History of Past illness Narrative* Problem Noted Date Resolved Date Ulcer of esophagus without bleeding 03/29/2015 03/29/2015 Dysphagia, unspecified(787.20) 12/21/2014 0 12/21/2014 Migraine without aura 08/27/2005 12/10/2007 documented as of this encounter (statuses as of 08/08/2022) [address]2015 History of Past illness Narrative* Problem Noted Date Resolved Date Ulcer of esophagus without bleeding 03/29/2015 03/29/2015 Dysphagia, unspecified(787.20) 12/21/2014 0 12/21/2014 Migraine without aura 08/27/2005 12/10/2007 documented as of this encounter (statuses as of 08/12/2022) [address]2015 History of Past illness Narrative* Problem Noted Date Resolved Date Ulcer of esophagus without bleeding 03/29/2015 03/29/2015 Dysphagia, unspecified(787.20) 12/21/2014 0 12/21/2014 Migraine without aura 08/27/2005 12/10/2007 documented as of this encounter (statuses as of 08/15/2022) [address]2015 History of Past illness Narrative* Problem Noted Date Resolved Date Ulcer of esophagus without bleeding 03/29/2015 03/29/2015 Dysphagia, unspecified(787.20) 12/21/2014 0 12/21/2014 Migraine without aura 08/27/2005 12/10/2007 documented as of this encounter (statuses as of 08/16/2022) [address]2015 History of Past illness Narrative* Problem Noted Date Resolved Date Ulcer of esophagus without bleeding 03/29/2015 03/29/2015 Dysphagia, unspecified(787.20) 12/21/2014 0 12/21/2014 Migraine without aura 08/27/2005 12/10/2007 documented as of this encounter (statuses as of 08/27/2022) [facility]2015 History of Past illness Narrative* Problem Noted Date Resolved Date Ulcer of esophagus without bleeding 03/29/2015 03/29/2015 Dysphagia, unspecified(787.20) 12/21/2014 0 12/21/2014 Migraine without aura 08/27/2005 12/10/2007 documented as of this encounter (statuses as of 09/02/2022) [address]2015 History of Past illness Narrative* Problem Noted Date Resolved Date Ulcer of esophagus without bleeding 03/29/2015 03/29/2015 Dysphagia, unspecified(787.20) 12/21/2014 0 12/21/2014 Migraine without aura 08/27/2005 12/10/2007 documented as of this encounter (statuses as of 09/10/2022) [facility]2015 History of Past illness Narrative* Problem Noted Date Resolved Date Ulcer of esophagus without bleeding 03/29/2015 03/29/2015 Dysphagia, unspecified(787.20) 12/21/2014 0 12/21/2014 Migraine without aura 08/27/2005 12/10/2007 documented as of this encounter (statuses as of 09/13/2022) [address]2015 History of Past illness Narrative* Problem Noted Date Resolved Date Ulcer of esophagus without bleeding 03/29/2015 03/29/2015 Dysphagia, unspecified(787.20) 12/21/2014 0 12/21/2014 Migraine without aura 08/27/2005 12/10/2007 documented as of this encounter (statuses as of 09/17/2022) [address]2015 History of Past illness Narrative* Problem Noted Date Resolved Date Ulcer of esophagus without bleeding 03/29/2015 03/29/2015 Dysphagia, unspecified(787.20) 12/21/2014 0 12/21/2014 Migraine without aura 08/27/2005 12/10/2007 documented as of this encounter (statuses as of 09/24/2022) [facility]2015 History of Past illness Narrative* Problem Noted Date Resolved Date Ulcer of esophagus without bleeding 03/29/2015 03/29/2015 Dysphagia, unspecified(787.20) 12/21/2014 0 12/21/2014 Migraine without aura 08/27/2005 12/10/2007 documented as of this encounter (statuses as of 09/26/2022) [facility]2015 History of Past illness Narrative* Problem Noted Date Resolved Date Ulcer of esophagus without bleeding 03/29/2015 03/29/2015 Dysphagia, unspecified(787.20) 12/21/2014 0 12/21/2014 Migraine without aura 08/27/2005 12/10/2007 documented as of this encounter (statuses as of 10/02/2022) [facility]2015 History of Past illness Narrative* Problem Noted Date Resolved Date Ulcer of esophagus without bleeding 03/29/2015 03/29/2015 Dysphagia, unspecified(787.20) 12/21/2014 0 12/21/2014 Migraine without aura 08/27/2005 12/10/2007 documented as of this encounter (statuses as of 10/02/2022) [facility]2015 History of Past illness Narrative* Problem Noted Date Resolved Date Ulcer of esophagus without bleeding 03/29/2015 03/29/2015 Dysphagia, unspecified(787.20) 12/21/2014 0 12/21/2014 Migraine without aura 08/27/2005 12/10/2007 documented as of this encounter (statuses as of 10/02/2022) [facility]2015 History of Past illness Narrative* Problem Noted Date Resolved Date Ulcer of esophagus without bleeding 03/29/2015 03/29/2015 Dysphagia, unspecified(787.20) 12/21/2014 0 12/21/2014 Migraine without aura 08/27/2005 12/10/2007 documented as of this encounter (statuses as of 10/02/2022) [address]2015 History of Past illness Narrative* Problem Noted Date Resolved Date Ulcer of esophagus without bleeding 03/29/2015 03/29/2015 Dysphagia, unspecified(787.20) 12/21/2014 0 12/21/2014 Migraine without aura 08/27/2005 12/10/2007 documented as of this encounter (statuses as of 10/03/2022) [address]2015 History of Past illness Narrative* Problem Noted Date Resolved Date Ulcer of esophagus without bleeding 03/29/2015 03/29/2015 Dysphagia, unspecified(787.20) 12/21/2014 0 12/21/2014 Migraine without aura 08/27/2005 12/10/2007 documented as of this encounter (statuses as of 10/07/2022) [address]2015 History of Past illness Narrative* Problem Noted Date Resolved Date Ulcer of esophagus without bleeding 03/29/2015 03/29/2015 Dysphagia, unspecified(787.20) 12/21/2014 0 12/21/2014 Migraine without aura 08/27/2005 12/10/2007 documented as of this encounter (statuses as of 10/08/2022) [address]-2015 History of Past illness Narrative* Problem Noted Date Resolved Date Ulcer of esophagus without bleeding 03/29/2015 03/29/2015 Dysphagia, unspecified(787.20) 12/21/2014 0 12/21/2014 Migraine without aura 08/27/2005 12/10/2007 documented as of this encounter (statuses as of 10/16/2022) [address]13-2015 History of Past illness Narrative* Problem Noted Date Resolved Date Ulcer of esophagus without bleeding 03/29/2015 03/29/2015 Dysphagia, unspecified(787.20) 12/21/2014 0 12/21/2014 Migraine without aura 08/27/2005 12/10/2007 documented as of this encounter (statuses as of 10/22/2022) [address]13-2015 History of Past illness Narrative* Problem Noted Date Resolved Date Ulcer of esophagus without bleeding 03/29/2015 03/29/2015 Dysphagia, unspecified(787.20) 12/21/2014 0 12/21/2014 Migraine without aura 08/27/2005 12/10/2007 documented as of this encounter (statuses as of 10/22/2022) [address]13-2015 History of Past illness Narrative* Problem Noted Date Resolved Date Ulcer of esophagus without bleeding 03/29/2015 03/29/2015 Dysphagia, unspecified(787.20) 12/21/2014 0 12/21/2014 Migraine without aura 08/27/2005 12/10/2007 documented as of this encounter (statuses as of 10/24/2022) [address]13-2015 History of Past illness Narrative* Problem Noted Date Resolved Date Ulcer of esophagus without bleeding 03/29/2015 03/29/2015 Dysphagia, unspecified(787.20) 12/21/2014 0 12/21/2014 Migraine without aura 08/27/2005 12/10/2007 documented as of this encounter (statuses as of 10/28/2022) [address]-2015 History of Past illness Narrative* Problem Noted Date Resolved Date Ulcer of esophagus without bleeding 03/29/2015 03/29/2015 Dysphagia, unspecified(787.20) 12/21/2014 0 12/21/2014 Migraine without aura 08/27/2005 12/10/2007 documented as of this encounter (statuses as of 10/30/2022) [address]13-2015 History of Past illness Narrative* Problem Noted Date Resolved Date Ulcer of esophagus without bleeding 03/29/2015 03/29/2015 Dysphagia, unspecified(787.20) 12/21/2014 0 12/21/2014 Migraine without aura 08/27/2005 12/10/2007 documented as of this encounter (statuses as of 11/04/2022) [address]13-2015 History of Past illness Narrative* Problem Noted Date Resolved Date Ulcer of esophagus without bleeding 03/29/2015 03/29/2015 Dysphagia, unspecified(787.20) 12/21/2014 0 12/21/2014 Migraine without aura 08/27/2005 12/10/2007 documented as of this encounter (statuses as of 11/17/2022) [address]13[address]2015 History of Past illness Narrative* Problem Noted Date Resolved Date Ulcer of esophagus without bleeding 03/29/2015 03/29/2015 Dysphagia, unspecified(787.20) 12/21/2014 0 12/21/2014 Migraine without aura 08/27/2005 12/10/2007 documented as of this encounter (statuses as of 11/17/2022) [address]13-2015 History of Past illness Narrative* Problem Noted Date Resolved Date Ulcer of esophagus without bleeding 03/29/2015 03/29/2015 Dysphagia, unspecified(787.20) 12/21/2014 0 12/21/2014 Migraine without aura 08/27/2005 12/10/2007 documented as of this encounter (statuses as of 11/20/2022) [address]13[address]2015 History of Past illness Narrative* Problem Noted Date Resolved Date Ulcer of esophagus without bleeding 03/29/2015 03/29/2015 Dysphagia, unspecified(787.20) 12/21/2014 0 12/21/2014 Migraine without aura 08/27/2005 12/10/2007 documented as of this encounter (statuses as of 11/21/2022) [address]2015 History of Past illness Narrative* Problem Noted Date Resolved Date Ulcer of esophagus without bleeding 03/29/2015 03/29/2015 Dysphagia, unspecified(787.20) 12/21/2014 0 12/21/2014 Migraine without aura 08/27/2005 12/10/2007 documented as of this encounter (statuses as of 12/02/2022) [address]2015 History of Past illness Narrative* Problem Noted Date Resolved Date Ulcer of esophagus without bleeding 03/29/2015 03/29/2015 Dysphagia, unspecified(787.20) 12/21/2014 0 12/21/2014 Migraine without aura 08/27/2005 12/10/2007 documented as of this encounter (statuses as of 12/05/2022) [address]-2015 History of Past illness Narrative* Problem Noted Date Resolved Date Ulcer of esophagus without bleeding 03/29/2015 03/29/2015 Dysphagia, unspecified(787.20) 12/21/2014 0 12/21/2014 Migraine without aura 08/27/2005 12/10/2007 documented as of this encounter (statuses as of 12/06/2022) [address]13-2015 History of Past illness Narrative* Problem Noted Date Resolved Date Ulcer of esophagus without bleeding 03/29/2015 03/29/2015 Dysphagia, unspecified(787.20) 12/21/2014 0 12/21/2014 Migraine without aura 08/27/2005 12/10/2007 documented as of this encounter (statuses as of 12/09/2022) [address]13-2015 History of Past illness Narrative* Problem Noted Date Resolved Date Ulcer of esophagus without bleeding 03/29/2015 03/29/2015 Dysphagia, unspecified(787.20) 12/21/2014 0 12/21/2014 Migraine without aura 08/27/2005 12/10/2007 documented as of this encounter (statuses as of 12/09/2022) [address]2015 History of Past illness Narrative* Problem Noted Date Resolved Date Ulcer of esophagus without bleeding 03/29/2015 03/29/2015 Dysphagia, unspecified(787.20) 12/21/2014 0 12/21/2014 Migraine without aura 08/27/2005 12/10/2007 documented as of this encounter (statuses as of 12/16/2022) [address]2015 History of Past illness Narrative* Problem Noted Date Resolved Date Ulcer of esophagus without bleeding 03/29/2015 03/29/2015 Dysphagia, unspecified(787.20) 12/21/2014 0 12/21/2014 Migraine without aura 08/27/2005 12/10/2007 documented as of this encounter (statuses as of 12/19/2022) [address]13-2015 History of Past illness Narrative* Problem Noted Date Resolved Date Ulcer of esophagus without bleeding 03/29/2015 03/29/2015 Dysphagia, unspecified(787.20) 12/21/2014 0 12/21/2014 Migraine without aura 08/27/2005 12/10/2007 documented as of this encounter (statuses as of 12/25/2022) [address]13[address]2015 History of Past illness Narrative* Problem Noted Date Resolved Date Ulcer of esophagus without bleeding 03/29/2015 03/29/2015 Dysphagia, unspecified(787.20) 12/21/2014 0 12/21/2014 Migraine without aura 08/27/2005 12/10/2007 documented as of this encounter (statuses as of 12/26/2022) [address]13-2015 History of Past illness Narrative* Problem Noted Date Resolved Date Ulcer of esophagus without bleeding 03/29/2015 03/29/2015 Dysphagia, unspecified(787.20) 12/21/2014 0 12/21/2014 Migraine without aura 08/27/2005 12/10/2007 documented as of this encounter (statuses as of 12/26/2022) [address]13-2015 History of Past illness Narrative* Problem Noted Date Resolved Date Ulcer of esophagus without bleeding 03/29/2015 03/29/2015 Dysphagia, unspecified(787.20) 12/21/2014 0 12/21/2014 Migraine without aura 08/27/2005 12/10/2007 documented as of this encounter (statuses as of 12/28/2022) [address]2015 History of Past illness Narrative* Problem Noted Date Resolved Date Ulcer of esophagus without bleeding 03/29/2015 03/29/2015 Dysphagia, unspecified(787.20) 12/21/2014 0 12/21/2014 Migraine without aura 08/27/2005 12/10/2007 documented as of this encounter (statuses as of 12/28/2022) [address]2015 History of Past illness Narrative* Problem Noted Date Resolved Date Ulcer of esophagus without bleeding 03/29/2015 03/29/2015 Dysphagia, unspecified(787.20) 12/21/2014 0 12/21/2014 Migraine without aura 08/27/2005 12/10/2007 documented as of this encounter (statuses as of 12/30/2022) [facility]05-13-2015 History of Past illness Narrative* Problem Noted Date Resolved Date Ulcer of esophagus without bleeding 03/29/2015 03/29/2015 Dysphagia, unspecified(787.20) 12/21/2014 0 12/21/2014 Migraine without aura 08/27/2005 12/10/2007 documented as of this encounter (statuses as of 12/30/2022) [address]13-2015 History of Past illness Narrative* Problem Noted Date Resolved Date Ulcer of esophagus without bleeding 03/29/2015 03/29/2015 Dysphagia, unspecified(787.20) 12/21/2014 0 12/21/2014 Migraine without aura 08/27/2005 12/10/2007 documented as of this encounter (statuses as of 12/31/2022) [address]13-2015 History of Past illness Narrative* Problem Noted Date Resolved Date Ulcer of esophagus without bleeding 03/29/2015 03/29/2015 Dysphagia, unspecified(787.20) 12/21/2014 0 12/21/2014 Migraine without aura 08/27/2005 12/10/2007 documented as of this encounter (statuses as of 01/02/2023) [address]13[address]2015 History of Past illness Narrative* Problem Noted Date Resolved Date Ulcer of esophagus without bleeding 03/29/2015 03/29/2015 Dysphagia, unspecified(787.20) 12/21/2014 0 12/21/2014 Migraine without aura 08/27/2005 12/10/2007 documented as of this encounter (statuses as of 01/08/2023) [address]2015 History of Past illness Narrative* Problem Noted Date Resolved Date Ulcer of esophagus without bleeding 03/29/2015 03/29/2015 Dysphagia, unspecified(787.20) 12/21/2014 0 12/21/2014 Migraine without aura 08/27/2005 12/10/2007 documented as of this encounter (statuses as of 01/08/2023) [address]13[address]2015 History of Past illness Narrative* Problem Noted Date Resolved Date Ulcer of esophagus without bleeding 03/29/2015 03/29/2015 Dysphagia, unspecified(787.20) 12/21/2014 0 12/21/2014 Migraine without aura 08/27/2005 12/10/2007 documented as of this encounter (statuses as of 01/08/2023) [address]13-2015 History of Past illness Narrative* Problem Noted Date Resolved Date Ulcer of esophagus without bleeding 03/29/2015 03/29/2015 Dysphagia, unspecified(787.20) 12/21/2014 0 12/21/2014 Migraine without aura 08/27/2005 12/10/2007 documented as of this encounter (statuses as of 01/13/2023) [address]13[address]2015 History of Past illness Narrative* Problem Noted Date Resolved Date Ulcer of esophagus without bleeding 03/29/2015 03/29/2015 Dysphagia, unspecified(787.20) 12/21/2014 0 12/21/2014 Migraine without aura 08/27/2005 12/10/2007 documented as of this encounter (statuses as of 01/16/2023) [address]13[address]2015 History of Past illness Narrative* Problem Noted Date Resolved Date Ulcer of esophagus without bleeding 03/29/2015 03/29/2015 Dysphagia, unspecified(787.20) 12/21/2014 0 12/21/2014 Migraine without aura 08/27/2005 12/10/2007 documented as of this encounter (statuses as of 01/20/2023) [address]13[address]2015 History of Past illness Narrative* Problem Noted Date Resolved Date Ulcer of esophagus without bleeding 03/29/2015 03/29/2015 Dysphagia, unspecified(787.20) 12/21/2014 0 12/21/2014 Migraine without aura 08/27/2005 12/10/2007 documented as of this encounter (statuses as of 01/22/2023) [address]13[address]2015 History of Past illness Narrative* Problem Noted Date Resolved Date Ulcer of esophagus without bleeding 03/29/2015 03/29/2015 Dysphagia, unspecified(787.20) 12/21/2014 0 12/21/2014 Migraine without aura 08/27/2005 12/10/2007 documented as of this encounter (statuses as of 01/27/2023) [address]13[address]2015 History of Past illness Narrative* Problem Noted Date Resolved Date Ulcer of esophagus without bleeding 03/29/2015 03/29/2015 Dysphagia, unspecified(787.20) 12/21/2014 0 12/21/2014 Migraine without aura 08/27/2005 12/10/2007 documented as of this encounter (statuses as of 01/30/2023) [address]13-2015 History of Past illness Narrative* Problem Noted Date Resolved Date Ulcer of esophagus without bleeding 03/29/2015 03/29/2015 Dysphagia, unspecified(787.20) 12/21/2014 0 12/21/2014 Migraine without aura 08/27/2005 12/10/2007 documented as of this encounter (statuses as of 02/04/2023) [address]13[address]2015 History of Past illness Narrative* Problem Noted Date Resolved Date Ulcer of esophagus without bleeding 03/29/2015 03/29/2015 Dysphagia, unspecified(787.20) 12/21/2014 0 12/21/2014 Migraine without aura 08/27/2005 12/10/2007 documented as of this encounter (statuses as of 02/06/2023) [address]2015 History of Past illness Narrative* Problem Noted Date Resolved Date Ulcer of esophagus without bleeding 03/29/2015 03/29/2015 Dysphagia, unspecified(787.20) 12/21/2014 0 12/21/2014 Migraine without aura 08/27/2005 12/10/2007 documented as of this encounter (statuses as of 02/06/2023) [address]2015 History of Past illness Narrative* Problem Noted Date Resolved Date Ulcer of esophagus without bleeding 03/29/2015 03/29/2015 Dysphagia, unspecified(787.20) 12/21/2014 0 12/21/2014 Migraine without aura 08/27/2005 12/10/2007 documented as of this encounter (statuses as of 02/13/2023) [address]13[address]2015 History of Past illness Narrative* Problem Noted Date Resolved Date Ulcer of esophagus without bleeding 03/29/2015 03/29/2015 Dysphagia, unspecified(787.20) 12/21/2014 0 12/21/2014 Migraine without aura 08/27/2005 12/10/2007 documented as of this encounter (statuses as of 02/20/2023) [address]13[address]2015 History of Past illness Narrative* Problem Noted Date Resolved Date Ulcer of esophagus without bleeding 03/29/2015 03/29/2015 Dysphagia, unspecified(787.20) 12/21/2014 0 12/21/2014 Migraine without aura 08/27/2005 12/10/2007 documented as of this encounter (statuses as of 02/20/2023) [facility]05-13-2015 History of Past illness Narrative* Problem Noted Date Resolved Date Ulcer of esophagus without bleeding 03/29/2015 03/29/2015 Dysphagia, unspecified(787.20) 12/21/2014 0 12/21/2014 Migraine without aura 08/27/2005 12/10/2007 documented as of this encounter (statuses as of 03/07/2023) [facility]05[facility]13-2015 History of Past illness Narrative* Problem Noted Date Resolved Date Ulcer of esophagus without bleeding 03/29/2015 03/29/2015 Dysphagia, unspecified(787.20) 12/21/2014 0 12/21/2014 Migraine without aura 08/27/2005 12/10/2007 documented as of this encounter (statuses as of 03/07/2023) [address]13[address]2015 History of Past illness Narrative* Problem Noted Date Resolved Date Ulcer of esophagus without bleeding 03/29/2015 03/29/2015 Dysphagia, unspecified(787.20) 12/21/2014 0 12/21/2014 Migraine without aura 08/27/2005 12/10/2007 documented as of this encounter (statuses as of 03/13/2023) [address]13[address]2015 History of Past illness Narrative* Problem Noted Date Resolved Date Ulcer of esophagus without bleeding 03/29/2015 03/29/2015 Dysphagia, unspecified(787.20) 12/21/2014 0 12/21/2014 Migraine without aura 08/27/2005 12/10/2007 documented as of this encounter (statuses as of 03/20/2023) [address]13[address]2015 History of Past illness Narrative* Problem Noted Date Resolved Date Ulcer of esophagus without bleeding 03/29/2015 03/29/2015 Dysphagia, unspecified(787.20) 12/21/2014 0 12/21/2014 Migraine without aura 08/27/2005 12/10/2007 documented as of this encounter (statuses as of 03/21/2023) [facility]05[facility]13-2015 History of Past illness Narrative* Problem Noted Date Resolved Date Ulcer of esophagus without bleeding 03/29/2015 03/29/2015 Dysphagia, unspecified(787.20) 12/21/2014 0 12/21/2014 Migraine without aura 08/27/2005 12/10/2007 documented as of this encounter (statuses as of 03/24/2023) [facility]13-2015 History of Past illness Narrative* Problem Noted Date Resolved Date Ulcer of esophagus without bleeding 03/29/2015 03/29/2015 Dysphagia, unspecified(787.20) 12/21/2014 0 12/21/2014 Migraine without aura 08/27/2005 12/10/2007 documented as of this encounter (statuses as of 2023) [address]2015 History of Past illness Narrative* Problem Noted Date Resolved Date Ulcer of esophagus without bleeding 03/29/2015 03/29/2015 Dysphagia, unspecified(787.20) 12/21/2014 0 12/21/2014 Migraine without aura 08/27/2005 12/10/2007 documented as of this encounter (statuses as of 03/27/2023) [address]2015 History of Past illness Narrative* Problem Noted Date Resolved Date Ulcer of esophagus without bleeding 03/29/2015 03/29/2015 Dysphagia, unspecified(787.20) 12/21/2014 0 12/21/2014 Migraine without aura 08/27/2005 12/10/2007 documented as of this encounter (statuses as of 03/27/2023) [address]2015 History of Past illness Narrative* Problem Noted Date Resolved Date Ulcer of esophagus without bleeding 03/29/2015 03/29/2015 Dysphagia, unspecified(787.20) 12/21/2014 0 12/21/2014 Migraine without aura 08/27/2005 12/10/2007 documented as of this encounter (statuses as of 04/16/2023) [address]2015 History of Past illness Narrative* Problem Noted Date Resolved Date Ulcer of esophagus without bleeding 03/29/2015 03/29/2015 Dysphagia, unspecified(787.20) 12/21/2014 0 12/21/2014 Migraine without aura 08/27/2005 12/10/2007 documented as of this encounter (statuses as of 04/22/2023) [address]2015 History of Past illness Narrative* Problem Noted Date Resolved Date Ulcer of esophagus without bleeding 03/29/2015 03/29/2015 Dysphagia, unspecified(787.20) 12/21/2014 0 12/21/2014 Migraine without aura 08/27/2005 12/10/2007 documented as of this encounter (statuses as of 04/30/2023) [address]2015 History of Past illness Narrative* Problem Noted Date Resolved Date Ulcer of esophagus without bleeding 03/29/2015 03/29/2015 Dysphagia, unspecified(787.20) 12/21/2014 0 12/21/2014 Migraine without aura 08/27/2005 12/10/2007 documented as of this encounter (statuses as of 05/01/2023) [facility]05[facility]13-2015 History of Past illness Narrative* Problem Noted Date Resolved Date Ulcer of esophagus without bleeding 03/29/2015 03/29/2015 Dysphagia, unspecified(787.20) 12/21/2014 0 12/21/2014 Migraine without aura 08/27/2005 12/10/2007 documented as of this encounter (statuses as of 05/12/2023) [facility]13-2015 History of Past illness Narrative* Problem Noted Date Diagnosed Date Resolved Date Ulcer of esophagus without bleeding 03/29/2015 03/29/2015 Dysphagia, unspecified(787.20) 12/21/2014 12/21/2014 Migraine without aura 08/27/20052007 documented as of this encounter (statuses as of 05/26/2023) [facility]13-2015 History of Past illness Narrative* Problem Noted Date Diagnosed Date Resolved Date Ulcer of esophagus without bleeding 03/29/2015 03/29/2015 Dysphagia, unspecified(787.20) 12/21/2014 12/21/2014 Migraine without aura 08/27/20052007 documented as of this encounter (statuses as of 05/27/2023) [facility]13-2015 History of Past illness Narrative* Problem Noted Date Diagnosed Date Resolved Date Ulcer of esophagus without bleeding 03/29/2015 03/29/2015 Dysphagia, unspecified(787.20) 12/21/2014 12/21/2014 Migraine without aura 08/27/20052007 documented as of this encounter (statuses as of 06/05/2023) [facility]13-2015 History of Past illness Narrative* Problem Noted Date Diagnosed Date Resolved Date Ulcer of esophagus without bleeding 03/29/2015 03/29/2015 Dysphagia, unspecified(787.20) 12/21/2014 12/21/2014 Migraine without aura 08/27/20052007 documented as of this encounter (statuses as of 06/09/2023) [address]2015 History of Past illness Narrative* Problem Noted Date Diagnosed Date Resolved Date Ulcer of esophagus without bleeding 03/29/2015 03/29/2015 Dysphagia, unspecified(787.20) 12/21/2014 12/21/2014 Migraine without aura 08/27/20052007 documented as of this encounter (statuses as of 06/11/2023) [address]13[address]2015 History of Past illness Narrative* Problem Noted Date Diagnosed Date Resolved Date Ulcer of esophagus without bleeding 03/29/2015 03/29/2015 Dysphagia, unspecified(787.20) 12/21/2014 12/21/2014 Migraine without aura 08/27/20052007 documented as of this encounter (statuses as of 06/12/2023) [address]2015 History of Past illness Narrative* Problem Noted Date Diagnosed Date Resolved Date Ulcer of esophagus without bleeding 03/29/2015 03/29/2015 Dysphagia, unspecified(787.20) 12/21/2014 12/21/2014 Migraine without aura 08/27/20052007 documented as of this encounter (statuses as of 06/13/2023) [address]2015 History of Past illness Narrative* Problem Noted Date Diagnosed Date Resolved Date Ulcer of esophagus without bleeding 03/29/2015 03/29/2015 Dysphagia, unspecified(787.20) 12/21/2014 12/21/2014 Migraine without aura 08/27/20052007 documented as of this encounter (statuses as of 06/16/2023) [address]2015 History of Past illness Narrative* Problem Noted Date Diagnosed Date Resolved Date Ulcer of esophagus without bleeding 03/29/2015 03/29/2015 Dysphagia, unspecified(787.20) 12/21/2014 12/21/2014 Migraine without aura 08/27/20052007 documented as of this encounter (statuses as of 06/18/2023) [address]2015 History of Past illness Narrative* Problem Noted Date Diagnosed Date Resolved Date Ulcer of esophagus without bleeding 03/29/2015 03/29/2015 Dysphagia, unspecified(787.20) 12/21/2014 12/21/2014 Migraine without aura 08/27/20052007 documented as of this encounter (statuses as of 06/25/2023) [facility]13-2015 History of Past illness Narrative* Problem Noted Date Diagnosed Date Resolved Date Ulcer of esophagus without bleeding 03/29/2015 03/29/2015 Dysphagia, unspecified(787.20) 12/21/2014 12/21/2014 Migraine without aura 08/27/20052007 documented as of this encounter (statuses as of 07/03/2023) [address]2015 History of Past illness Narrative* Problem Noted Date Diagnosed Date Resolved Date Ulcer of esophagus without bleeding 03/29/2015 03/29/2015 Dysphagia, unspecified(787.20) 12/21/2014 12/21/2014 Migraine without aura 08/27/20052007 documented as of this encounter (statuses as of 07/03/2023) [facility]13[facility]2015 History of Past illness Narrative* Problem Noted Date Diagnosed Date Resolved Date Ulcer of esophagus without bleeding 03/29/2015 03/29/2015 Dysphagia, unspecified(787.20) 12/21/2014 12/21/2014 Migraine without aura 08/27/20052007 documented as of this encounter (statuses as of 07/03/2023) [facility]13[facility]2015 History of Past illness Narrative* Problem Noted Date Diagnosed Date Resolved Date Ulcer of esophagus without bleeding 03/29/2015 03/29/2015 Dysphagia, unspecified(787.20) 12/21/2014 12/21/2014 Migraine without aura 08/27/20052007 documented as of this encounter (statuses as of 07/09/2023) [address]2015 History of Past illness Narrative* Problem Noted Date Diagnosed Date Resolved Date Ulcer of esophagus without bleeding 03/29/2015 03/29/2015 Dysphagia, unspecified(787.20) 12/21/2014 12/21/2014 Migraine without aura 08/27/20052007 documented as of this encounter (statuses as of 07/10/2023) [facility]13[facility]2015 History of Past illness Narrative* Problem Noted Date Diagnosed Date Resolved Date Ulcer of esophagus without bleeding 03/29/2015 03/29/2015 Dysphagia, unspecified(787.20) 12/21/2014 12/21/2014 Migraine without aura 08/27/20052007 documented as of this encounter (statuses as of 07/12/2023) [facility]13[facility]2015 History of Past illness Narrative* Problem Noted Date Diagnosed Date Resolved Date Ulcer of esophagus without bleeding 03/29/2015 03/29/2015 Dysphagia, unspecified(787.20) 12/21/2014 12/21/2014 Migraine without aura 08/27/20052007 documented as of this encounter (statuses as of 07/15/2023) [address]2015 History of Past illness Narrative* Problem Noted Date Diagnosed Date Resolved Date Ulcer of esophagus without bleeding 03/29/2015 03/29/2015 Dysphagia, unspecified(787.20) 12/21/2014 12/21/2014 Migraine without aura 08/27/20052007 documented as of this encounter (statuses as of 07/29/2023) [address]2015 History of Past illness Narrative* Problem Noted Date Diagnosed Date Resolved Date Ulcer of esophagus without bleeding 03/29/2015 03/29/2015 Dysphagia, unspecified(787.20) 12/21/2014 12/21/2014 Migraine without aura 08/27/20052007 documented as of this encounter (statuses as of 08/07/2023) [address]2015 History of Past illness Narrative* Problem Noted Date Diagnosed Date Resolved Date Ulcer of esophagus without bleeding 03/29/2015 03/29/2015 Dysphagia, unspecified(787.20) 12/21/2014 12/21/2014 Migraine without aura 08/27/20052007 documented as of this encounter (statuses as of 08/12/2023) [address]2015 History of Past illness Narrative* Problem Noted Date Diagnosed Date Resolved Date Ulcer of esophagus without bleeding 03/29/2015 03/29/2015 Dysphagia, unspecified(787.20) 12/21/2014 12/21/2014 Migraine without aura 08/27/20052007 documented as of this encounter (statuses as of 08/16/2023) [address]13-2015 History of Past illness Narrative* Problem Noted Date Diagnosed Date Resolved Date Ulcer of esophagus without bleeding 03/29/2015 03/29/2015 Dysphagia, unspecified(787.20) 12/21/2014 12/21/2014 Migraine without aura 08/27/20052007 documented as of this encounter (statuses as of 08/30/2023) [address]13-2015 History of Past illness Narrative* Problem Noted Date Diagnosed Date Resolved Date Ulcer of esophagus without bleeding 03/29/2015 03/29/2015 Dysphagia, unspecified(787.20) 12/21/2014 12/21/2014 Migraine without aura 08/27/20052007 documented as of this encounter (statuses as of 09/02/2023) [facility]05-13-2015 History of Past illness Narrative* Problem Noted Date Diagnosed Date Resolved Date Ulcer of esophagus without bleeding 03/29/2015 03/29/2015 Dysphagia, unspecified(787.20) 12/21/2014 12/21/2014 Migraine without aura 08/27/20052007 documented as of this encounter (statuses as of 09/04/2023) [facility]13[facility]2015 History of Past illness Narrative* Problem Noted Date Diagnosed Date Resolved Date Ulcer of esophagus without bleeding 03/29/2015 03/29/2015 Dysphagia, unspecified(787.20) 12/21/2014 12/21/2014 Migraine without aura 08/27/20052007 documented as of this encounter (statuses as of 09/11/2023) [address]-2015 History of Past illness Narrative* Problem Noted Date Diagnosed Date Resolved Date Ulcer of esophagus without bleeding 03/29/2015 03/29/2015 Dysphagia, unspecified(787.20) 12/21/2014 12/21/2014 Migraine without aura 08/27/20052007 documented as of this encounter (statuses as of 09/14/2023) [address]2015 History of Past illness Narrative* Problem Noted Date Diagnosed Date Resolved Date Ulcer of esophagus without bleeding 03/29/2015 03/29/2015 Dysphagia, unspecified(787.20) 12/21/2014 12/21/2014 Migraine without aura 08/27/20052007 documented as of this encounter (statuses as of 09/16/2023) [address]13-2015 History of Past illness Narrative* Problem Noted Date Diagnosed Date Resolved Date Ulcer of esophagus without bleeding 03/29/2015 03/29/2015 Dysphagia, unspecified(787.20) 12/21/2014 12/21/2014 Migraine without aura 08/27/20052007 documented as of this encounter (statuses as of 09/21/2023) [address]13-2015 History of Past illness Narrative* Problem Noted Date Diagnosed Date Resolved Date Ulcer of esophagus without bleeding 03/29/2015 03/29/2015 Dysphagia, unspecified(787.20) 12/21/2014 12/21/2014 Migraine without aura 08/27/20052007 documented as of this encounter (statuses as of 09/21/2023) [facility]2015 History of Past illness Narrative* Problem Noted Date Diagnosed Date Resolved Date Ulcer of esophagus without bleeding 03/29/2015 03/29/2015 Dysphagia, unspecified(787.20) 12/21/2014 12/21/2014 Migraine without aura 08/27/20052007 documented as of this encounter (statuses as of 09/21/2023) [address]2015 History of Past illness Narrative* Problem Noted Date Diagnosed Date Resolved Date Ulcer of esophagus without bleeding 03/29/2015 03/29/2015 Dysphagia, unspecified(787.20) 12/21/2014 12/21/2014 Migraine without aura 08/27/20052007 documented as of this encounter (statuses as of 09/21/2023) [address]2015 History of Past illness Narrative* Problem Noted Date Diagnosed Date Resolved Date Ulcer of esophagus without bleeding 03/29/2015 03/29/2015 Dysphagia, unspecified(787.20) 12/21/2014 12/21/2014 Migraine without aura 08/27/20052007 documented as of this encounter (statuses as of 09/21/2023) [facility]2015 History of Past illness Narrative* Problem Noted Date Diagnosed Date Resolved Date Ulcer of esophagus without bleeding 03/29/2015 03/29/2015 Dysphagia, unspecified(787.20) 12/21/2014 12/21/2014 Migraine without aura 08/27/20052007 documented as of this encounter (statuses as of 09/29/2023) [facility]2015 History of Past illness Narrative* Problem Noted Date Diagnosed Date Resolved Date Ulcer of esophagus without bleeding 03/29/2015 03/29/2015 Dysphagia, unspecified(787.20) 12/21/2014 12/21/2014 Migraine without aura 08/27/20052007 documented as of this encounter (statuses as of 09/29/2023) [address]2015 History of Past illness Narrative* Problem Noted Date Diagnosed Date Resolved Date Ulcer of esophagus without bleeding 03/29/2015 03/29/2015 Dysphagia, unspecified(787.20) 12/21/2014 12/21/2014 Migraine without aura 08/27/20052007 documented as of this encounter (statuses as of 10/01/2023) [facility]2015 History of Past illness Narrative* Problem Noted Date Diagnosed Date Resolved Date Ulcer of esophagus without bleeding 03/29/2015 03/29/2015 Dysphagia, unspecified(787.20) 12/21/2014 12/21/2014 Migraine without aura 08/27/20052007 documented as of this encounter (statuses as of 10/16/2023) [address]-2015 History of Past illness Narrative* Problem Noted Date Diagnosed Date Resolved Date Ulcer of esophagus without bleeding 03/29/2015 03/29/2015 Dysphagia, unspecified(787.20) 12/21/2014 12/21/2014 Migraine without aura 08/27/20052007 documented as of this encounter (statuses as of 10/18/2023) [address]2015 History of Past illness Narrative* Problem Noted Date Diagnosed Date Resolved Date Ulcer of esophagus without bleeding 03/29/2015 03/29/2015 Dysphagia, unspecified(787.20) 12/21/2014 12/21/2014 Migraine without aura 08/27/20052007 documented as of this encounter (statuses as of 10/19/2023) [address]2015 History of Past illness Narrative* Problem Noted Date Diagnosed Date Resolved Date Ulcer of esophagus without bleeding 03/29/2015 03/29/2015 Dysphagia, unspecified(787.20) 12/21/2014 12/21/2014 Migraine without aura 08/27/20052007 documented as of this encounter (statuses as of 10/20/2023) [address]2015 History of Past illness Narrative* Problem Noted Date Diagnosed Date Resolved Date Ulcer of esophagus without bleeding 03/29/2015 03/29/2015 Dysphagia, unspecified(787.20) 12/21/2014 12/21/2014 Migraine without aura 08/27/20052007 documented as of this encounter (statuses as of 10/21/2023) [address]2015 History of Past illness Narrative* Problem Noted Date Diagnosed Date Resolved Date Ulcer of esophagus without bleeding 03/29/2015 03/29/2015 Dysphagia, unspecified(787.20) 12/21/2014 12/21/2014 Migraine without aura 08/27/20052007 documented as of this encounter (statuses as of 10/27/2023) [facility]05[facility]13[facility]2015 History of Past illness Narrative* Problem Noted Date Diagnosed Date Resolved Date Ulcer of esophagus without bleeding 03/29/2015 03/29/2015 Dysphagia, unspecified(787.20) 12/21/2014 12/21/2014 Migraine without aura 08/27/20052007 documented as of this encounter (statuses as of 10/30/2023) [address]2015 History of Past illness Narrative* Problem Noted Date Diagnosed Date Resolved Date Ulcer of esophagus without bleeding 03/29/2015 03/29/2015 Dysphagia, unspecified(787.20) 12/21/2014 12/21/2014 Migraine without aura 08/27/20052007 documented as of this encounter (statuses as of 11/01/2023) [facility]05[facility]13[facility]2015 History of Past illness Narrative* Problem Noted Date Diagnosed Date Resolved Date Ulcer of esophagus without bleeding 03/29/2015 03/29/2015 Dysphagia, unspecified(787.20) 12/21/2014 12/21/2014 Migraine without aura 08/27/20052007 documented as of this encounter (statuses as of 12/19/2023) [facility]2015 History of Past illness Narrative* Problem Noted Date Diagnosed Date Resolved Date Ulcer of esophagus without bleeding 03/29/2015 03/29/2015 Dysphagia, unspecified(787.20) 12/21/2014 12/21/2014 Migraine without aura 08/27/20052007 documented as of this encounter (statuses as of 01/09/2024) [facility] note* Diagnosis Left flank pain- Primary Abdominal pain, unspecified site History of UTI Personal history of urinary (tract) infection Cervical spondylosis without myelopathy Radiculopathy, cervical region Brachial neuritis or radiculitis nos Cervical spondylosis without myelopathy Radiculopathy, cervical region Brachial neuritis or radiculitis nos documented in this encounter [facility] note* Diagnosis Left flank pain Abdominal pain, unspecified site Cervical spondylosis without myelopathy Radiculopathy, cervical region Brachial neuritis or radiculitis nos Cervical spondylosis without myelopathy Radiculopathy, cervical region Brachial neuritis or radiculitis nos documented in this encounter [facility] note* Diagnosis Low back pain without sciatica, unspecified back pain laterality, unspecified chronicity- Primary Acute cystitis without hematuria Acute cystitis Cervical spondylosis without myelopathy Radiculopathy, cervical region Brachial neuritis or radiculitis nos Cervical spondylosis without myelopathy Radiculopathy, cervical region Brachial neuritis or radiculitis nos documented in this encounter [facility] note* Diagnosis Flank pain- Primary Abdominal pain, unspecified site Cervical spondylosis without myelopathy Radiculopathy, cervical region Brachial neuritis or radiculitis nos Cervical spondylosis without myelopathy Radiculopathy, cervical region Brachial neuritis or radiculitis nos documented in this encounter [facility] note* Diagnosis Nausea Nausea alone Cervical spondylosis without myelopathy Radiculopathy, cervical region Brachial neuritis or radiculitis nos Cervical spondylosis without myelopathy Radiculopathy, cervical region Brachial neuritis or radiculitis nos documented in this encounter [facility] note* Diagnosis Cervical spondylosis without myelopathy- Primary Radiculopathy, cervical Brachial neuritis or radiculitis nos Cervical spondylosis without myelopathy Radiculopathy, cervical region Brachial neuritis or radiculitis nos documented in this encounter [facility] note* Diagnosis Cervical stenosis of spinal canal Spinal stenosis in cervical region Cervical radiculopathy Brachial neuritis or radiculitis nos Cervical spondylosis without myelopathy Cervical spondylosis without myelopathy Radiculopathy, cervical region Brachial neuritis or radiculitis nos Cervical spondylosis without myelopathy Radiculopathy, cervical Brachial neuritis or radiculitis nos [facility] Diagnosis Acute cystitis without hematuria- Primary Acute cystitis Cervical spondylosis without myelopathy Radiculopathy, cervical region Brachial neuritis or radiculitis nos Cervical spondylosis without myelopathy Radiculopathy, cervical Brachial neuritis or radiculitis nos [facility] Diagnosis Recurrent UTI (urinary tract infection)- Primary Urinary tract infection, site not specified Flank pain Abdominal pain, unspecified site Lung crackles Abnormal chest sounds Cervical spondylosis without myelopathy Radiculopathy, cervical region Brachial neuritis or radiculitis nos Cervical spondylosis without myelopathy Radiculopathy, cervical Brachial neuritis or radiculitis nos [facility] Diagnosis Acute right-sided thoracic back pain- Primary Lumbar pain Lumbago Cervical spondylosis without myelopathy Radiculopathy, cervical region Brachial neuritis or radiculitis nos Cervical spondylosis without myelopathy Radiculopathy, cervical Brachial neuritis or radiculitis nos [facility] Diagnosis Flank pain Abdominal pain, unspecified site Cervical spondylosis without myelopathy Radiculopathy, cervical region Brachial neuritis or radiculitis nos Cervical spondylosis without myelopathy Radiculopathy, cervical Brachial neuritis or radiculitis nos [facility] Diagnosis Thoracic arthritis Thoracic spondylosis without myelopathy Arthritis of lumbar spine Lumbosacral spondylosis without myelopathy Cervical spondylosis without myelopathy Radiculopathy, cervical region Brachial neuritis or radiculitis nos Cervical spondylosis without myelopathy Radiculopathy, cervical Brachial neuritis or radiculitis nos [facility] Diagnosis Acute right-sided thoracic back pain Lumbar pain Lumbago Cervical spondylosis without myelopathy Radiculopathy, cervical region Brachial neuritis or radiculitis nos Cervical spondylosis without myelopathy Radiculopathy, cervical Brachial neuritis or radiculitis nos [facility] Diagnosis Overactive bladder- Primary Hypertonicity of bladder Urge incontinence of urine Urge incontinence Cervical spondylosis without myelopathy Radiculopathy, cervical region Brachial neuritis or radiculitis nos Cervical spondylosis without myelopathy Radiculopathy, cervical Brachial neuritis or radiculitis nos documented in this encounter [facility] note* Diagnosis Acquired hypothyroidism- Primary Unspecified hypothyroidism Cervical spondylosis without myelopathy Radiculopathy, cervical Brachial neuritis or radiculitis nos documented in this encounter [facility] note* Diagnosis Cervical spondylosis without myelopathy- Primary Cervical spondylosis without myelopathy Radiculopathy, cervical Brachial neuritis or radiculitis nos documented in this encounter [facility] note* Diagnosis Acute right-sided thoracic back pain- Primary Lumbar pain Lumbago Cervical spondylosis without myelopathy Radiculopathy, cervical Brachial neuritis or radiculitis nos documented in this encounter [facility] note* Diagnosis Acute right-sided thoracic back pain- Primary Lumbar pain Lumbago documented in this encounter [facility] note* Diagnosis Cervical spondylosis without myelopathy- Primary Myalgia Mylagia and myositis, unspecified Other chronic pain documented in this encounter [facility] note* Diagnosis Acute right-sided thoracic back pain- Primary Lumbar pain Lumbago documented in this encounter [facility] note* Diagnosis Nausea Nausea alone documented in this encounter [facility] note* Diagnosis Lung nodules Other nonspecific abnormal finding of lung field documented in this encounter [facility] note* Diagnosis Lung nodules Other nonspecific abnormal finding of lung field documented in this encounter [facility] note* Diagnosis Acute right-sided thoracic back pain- Primary Lumbar pain Lumbago documented in this encounter [facility] note* Diagnosis Cervical spondylosis without myelopathy- Primary Radiculopathy, cervical region Brachial neuritis or radiculitis nos documented in this encounter [facility] note* Diagnosis Cervical spondylosis without myelopathy- Primary Radiculopathy, cervical region Brachial neuritis or radiculitis nos Myalgia Mylagia and myositis, unspecified Other chronic pain documented in this encounter [facility] note* Diagnosis Prediabetes Other abnormal glucose Cervical radiculopathy- Primary Brachial neuritis or radiculitis nos documented in this encounter [facility] note* Diagnosis Cervical radiculopathy- Primary Brachial neuritis or radiculitis nos Scoliosis, unspecified scoliosis type, unspecified spinal region Neck pain Cervicalgia [facility] Diagnosis Scoliosis, unspecified scoliosis type, unspecified spinal region [facility] Diagnosis Cervical spondylosis without myelopathy- Primary [facility] Diagnosis Cervical radiculopathy Brachial neuritis or radiculitis nos Cervical spondylosis without myelopathy- Primary Other chronic pain Myalgia Mylagia and myositis, unspecified [facility] Diagnosis Cervical spondylosis without myelopathy- Primary Other chronic pain Myalgia Mylagia and myositis, unspecified [facility] Diagnosis Cervical spondylosis without myelopathy- Primary [facility] Diagnosis Loose stools- Primary Abnormal feces Generalized abdominal pain Abdominal pain, generalized [facility] Diagnosis NO SHOW- Primary [facility] Diagnosis Neck muscle weakness- Primary Unspecified musculoskeletal disorders and symptoms referable to neck Dropped head syndrome Other symptoms involving nervous and musculoskeletal systems [facility] Diagnosis Gastroesophageal reflux disease with esophagitis [facility] Diagnosis Tongue abnormality- Primary Cervical pain Cervicalgia [facility] Diagnosis Primary osteoarthritis of right shoulder- Primary Primary localized osteoarthrosis, shoulder region [facility] Diagnosis Primary osteoarthritis of right shoulder- Primary Primary localized osteoarthrosis, shoulder region Myalgia Mylagia and myositis, unspecified Other chronic pain [facility] Diagnosis Dropped head syndrome- Primary Other symptoms involving nervous and musculoskeletal systems Other spondylosis, cervical region Disturbance of skin sensation Decreased ROM of neck [facility] Diagnosis Overactive bladder- Primary Hypertonicity of bladder Urge incontinence of urine Urge incontinence [facility] Diagnosis Encounter for screening mammogram for breast cancer [facility] Diagnosis Dropped head syndrome- Primary Other symptoms involving nervous and musculoskeletal systems Other spondylosis, cervical region Disturbance of skin sensation Decreased ROM of neck [facility] Diagnosis Cervical spondylosis without myelopathy- Primary Radiculopathy, cervical region Brachial neuritis or radiculitis nos Cervical stenosis of spinal canal Spinal stenosis in cervical region Primary osteoarthritis of right shoulder Primary localized osteoarthrosis, shoulder region [facility] Diagnosis [facility] for [facility] Diagnosis Cervical spondylosis without myelopathy- Primary Radiculopathy, cervical region Brachial neuritis or radiculitis nos Cervical stenosis of spinal canal Spinal stenosis in cervical region [facility] Diagnosis Cervical spondylosis without myelopathy- Primary Cervical stenosis of spinal canal Spinal stenosis in cervical region Radiculopathy, cervical region Brachial neuritis or radiculitis nos [facility] Diagnosis Cervical spondylosis without myelopathy- Primary Cervical stenosis of spinal canal Spinal stenosis in cervical region Radiculopathy, cervical region Brachial neuritis or radiculitis nos [facility] Diagnosis Cervical spondylosis without myelopathy- Primary Radiculopathy, cervical region Brachial neuritis or radiculitis nos Cervical stenosis of spinal canal Spinal stenosis in cervical region Primary osteoarthritis of right shoulder Primary localized osteoarthrosis, shoulder region Myofascial pain Mylagia and myositis, unspecified [facility] Diagnosis Repetitive stress injury- Primary Unspecified site of sprain and strain Foot pain, left Pain in limb [facility] Diagnosis Elevated rheumatoid factor- Primary Other and unspecified nonspecific immunological findings [facility] Diagnosis Encounter for gynecological examination with abnormal finding- Primary Routine gynecological examination Mixed incontinence Mixed incontinence urge and stress (male)(female) Cystocele, midline Encounter for screening mammogram for breast cancer Screening for malignant neoplasm of cervix Screening for malignant neoplasm of the cervix Encounter for screening for human papillomavirus (HPV) Special screening examination for human papillomavirus (HPV) Dense breast tissue on mammogram [facility] Diagnosis REBA positive- Primary Other and unspecified nonspecific immunological findings Elevated rheumatoid factor Other and unspecified nonspecific immunological findings Pain in joint, multiple sites [facility] Diagnosis Intractable chronic migraine without aura and without status migrainosus- Primary Chronic migraine without aura, with intractable migraine, so stated, without mention of status migrainosus Cervicogenic headache Headache [facility] Diagnosis Gastroesophageal reflux disease, unspecified whether esophagitis present- Primary Nausea and vomiting, unspecified vomiting type Irritable bowel syndrome with constipation Irritable bowel syndrome History of colonic polyps Personal history of colonic polyps [facility] Diagnosis Repetitive stress injury- Primary Unspecified site of sprain and strain [facility] Diagnosis Irritable bowel syndrome with constipation- Primary Irritable bowel syndrome [facility] Diagnosis Abnormal US (ultrasound) of abdomen- Primary Nonspecific (abnormal) findings on radiological and other examination of abdominal area, including retroperitoneum [facility] Diagnosis Abnormal US (ultrasound) of abdomen- Primary Nonspecific (abnormal) findings on radiological and other examination of abdominal area, including retroperitoneum [facility] Diagnosis Prediabetes- Primary Other abnormal glucose Obesity, Class II, BMI 35-39.9 Obesity, unspecified [facility] Diagnosis Irritable bowel syndrome with constipation Irritable bowel syndrome [facility] Diagnosis Acute cough- Primary URI, acute Acute upper respiratory infections of unspecified site [facility]* Diagnosis Urinary tract infection with hematuria, site unspecified- Primary URI, acute Acute upper respiratory infections of unspecified site [facility]* Diagnosis Prediabetes- Primary Other abnormal glucose Obesity, Class II, BMI 35-39.9 Obesity, unspecified [facility] Diagnosis Prediabetes Other abnormal glucose Obesity, Class II, BMI 35-39.9 Obesity, unspecified [facility] Diagnosis Cervical spondylosis without myelopathy- Primary Myofascial pain Mylagia and myositis, unspecified Primary osteoarthritis of right shoulder Primary localized osteoarthrosis, shoulder region Cervical stenosis of spinal canal Spinal stenosis in cervical region Radiculopathy, cervical region Brachial neuritis or radiculitis nos [facility] Neck pain- Primary Cervicalgia [facility] Diagnosis Nausea and vomiting, unspecified vomiting type- Primary Generalized abdominal pain Abdominal pain, generalized Irritable bowel syndrome with constipation Irritable bowel syndrome Nausea Nausea alone [facility] Diagnosis Nausea and vomiting, unspecified vomiting type Generalized abdominal pain Abdominal pain, generalized Nausea Nausea alone [facility] Diagnosis Gastric diverticulum- Primary Nausea and vomiting, unspecified vomiting type Generalized abdominal pain Abdominal pain, generalized [facility] Diagnosis Nausea and vomiting, unspecified vomiting type- Primary Nausea Nausea alone [facility] Diagnosis Gastroesophageal reflux disease with esophagitis without hemorrhage- Primary Nausea Nausea alone Class 1 obesity due to excess calories without serious comorbidity with body mass index (BMI) of 33.0 to 33.9 in adult Gastroparesis [facility] Diagnosis Gastroesophageal reflux disease with esophagitis without hemorrhage- Primary [facility] Diagnosis Abnormal weight loss- Primary Loss of weight Gastroesophageal reflux disease with esophagitis without hemorrhage [facility] Diagnosis Abnormal weight loss Loss of weight Gastroesophageal reflux disease with esophagitis without hemorrhage [facility] Diagnosis Nausea and vomiting, unspecified vomiting type Gastroesophageal reflux disease with esophagitis without hemorrhage [facility]* Diagnosis Intractable chronic migraine without aura and without status migrainosus- Primary Chronic migraine without aura, with intractable migraine, so stated, without mention of status migrainosus Cervicogenic headache Headache Gastroesophageal reflux disease with esophagitis without hemorrhage [facility]* Diagnosis Osteoporosis, unspecified osteoporosis type, unspecified pathological fracture presence- Primary Primary osteoarthritis involving multiple joints Pain in joint, multiple sites REBA positive Other and unspecified nonspecific immunological findings Gastroesophageal reflux disease with esophagitis without hemorrhage [facility] Diagnosis Osteoporosis, unspecified osteoporosis type, unspecified pathological fracture presence Gastroesophageal reflux disease with esophagitis without hemorrhage [facility] Diagnosis Irritable bowel syndrome with constipation Irritable bowel syndrome Gastroesophageal reflux disease with esophagitis without hemorrhage [facility] Diagnosis Gastroesophageal reflux disease with esophagitis Gastroesophageal reflux disease with esophagitis without hemorrhage [facility]* Diagnosis At high risk for falls- Primary Personal history of fall Arthritis Arthropathy, unspecified, site unspecified Gastroesophageal reflux disease with esophagitis without hemorrhage Gastroesophageal reflux disease with esophagitis without hemorrhage [facility] Diagnosis Gastroesophageal reflux disease with esophagitis without hemorrhage Prediabetes Other abnormal glucose JORDAN (obstructive sleep apnea) Obstructive sleep apnea (adult) (pediatric) Mixed hyperlipidemia Preop testing Preoperative examination, unspecified [facility]* Diagnosis Gastroparesis- Primary Gastroesophageal reflux disease with esophagitis without hemorrhage [facility]* Diagnosis Cervical spondylosis without myelopathy- Primary Primary osteoarthritis of right shoulder Primary localized osteoarthrosis, shoulder region Myofascial pain Mylagia and myositis, unspecified Cervical stenosis of spinal canal Spinal stenosis in cervical region [facility]* Diagnosis Gastroparesis- Primary Gastroesophageal reflux disease with esophagitis without hemorrhage [facility]* Diagnosis Gastroparesis- Primary Gastroesophageal reflux disease with esophagitis without hemorrhage [facility]* Diagnosis Acute pain of left knee- Primary S/P total knee arthroplasty, left [facility] Diagnosis Irritable bowel syndrome with constipation- Primary Irritable bowel syndrome Gastric diverticulum Gastroparesis [facility]* Diagnosis Bilateral carotid artery stenosis Occlusion and stenosis of carotid artery without mention of cerebral infarction [facility] Diagnosis Acquired hypothyroidism- Primary Unspecified hypothyroidism [facility]* Diagnosis Gastroparesis- Primary Gastroesophageal reflux disease with esophagitis without hemorrhage Gastric diverticulum Nausea Nausea alone [facility]* Diagnosis Fatigue, unspecified type- Primary Brain fog Hair loss Alopecia, unspecified [facility]* Diagnosis Hypercalcemia- Primary REBA positive Other and unspecified nonspecific immunological findings [facility]* Diagnosis Viral bronchitis Acute bronchitis Encounter for screening for lung cancer- Primary [facility] Diagnosis Fatigue, unspecified type- Primary Generalized weakness Other malaise and fatigue Balance problems Other symptoms involving nervous and musculoskeletal systems Personal history of fibromyalgia Personal history of other musculoskeletal disorders Encounter for screening for lung cancer Ex-smoker Personal history of tobacco use, presenting hazards to health [facility] Diagnosis Obstructive sleep apnea (adult) (pediatric)- Primary [facility]* Diagnosis Obstructive sleep apnea (adult) (pediatric) [facility]* Diagnosis Encounter for screening for lung cancer- Primary Former tobacco use Personal history of tobacco use, presenting hazards to health [facility] Diagnosis Prediabetes Other abnormal glucose [facility] Diagnosis Encounter for screening for lung cancer- Primary Former tobacco use Personal history of tobacco use, presenting hazards to health [facility]* Diagnosis Acute frontal sinusitis, recurrence not specified- Primary [facility]* Diagnosis Nausea Nausea alone [facility]* Diagnosis Generalized weakness- Primary Other malaise and fatigue Balance problems Other symptoms involving nervous and musculoskeletal systems Cervicalgia UARS (upper airway resistance syndrome) Other organic sleep disorders Insomnia, unspecified type [facility]* Diagnosis Cervical spondylosis without myelopathy- Primary Cervical stenosis of spinal canal Spinal stenosis in cervical region Cervical radiculopathy Brachial neuritis or radiculitis nos Primary osteoarthritis of right shoulder Primary localized osteoarthrosis, shoulder region Radiculopathy, cervical region Brachial neuritis or radiculitis nos Myofascial pain Mylagia and myositis, unspecified [facility] Diagnosis Pain with urination- Primary Renal colic [facility]* Diagnosis Vitamin B 12 deficiency- Primary Other B-complex deficiencies [facility]* Diagnosis Nausea and vomiting, unspecified vomiting type [facility]* Diagnosis Pain Generalized pain [facility]* Diagnosis Encounter for screening for lung cancer Former tobacco use Personal history of tobacco use, presenting hazards to health [facility] Diagnosis Repetitive stress injury Unspecified site of sprain and strain [facility]* Diagnosis Encounter for gynecological examination with abnormal finding Routine gynecological examination Encounter for screening mammogram for breast cancer Dense breast tissue on mammogram [facility]* Diagnosis Irritable bowel syndrome with constipation Irritable bowel syndrome [facility]* Diagnosis Medicare annual wellness visit, subsequent- Primary Routine general medical examination at a health care facility Vitamin B 12 deficiency Other B-complex deficiencies Acquired hypothyroidism Unspecified hypothyroidism Elevated hemoglobin A1c Other abnormal blood chemistry Gastroesophageal reflux disease with esophagitis without hemorrhage Mixed hyperlipidemia Generalized weakness Other malaise and fatigue Vitamin D deficiency Unspecified vitamin D deficiency Balance problems Other symptoms involving nervous and musculoskeletal systems Transient cerebral ischemia, unspecified type Encounter for immunization Need for other specified prophylactic vaccination against single bacterial disease Pulmonary emphysema, unspecified emphysema type (HCC) Bipolar I disorder (HCC) Bipolar I disorder, most recent episode (or current) unspecified [facility]* Diagnosis Acquired hypothyroidism- Primary Unspecified hypothyroidism [facility]* Diagnosis Viral syndrome- Primary Unspecified viral infection, in conditions classified elsewhere and of unspecified site [facility]* Diagnosis Bladder spasms- Primary Other specified disorders of bladder Recurrent UTI (urinary tract infection) Urinary tract infection, site not specified [facility]* Diagnosis Chronic pain of left knee- Primary Pain in joint, lower leg S/P total knee arthroplasty, left [facility]* Diagnosis Encounter for medication management- Primary Encounter for long-term (current) use of other medications Irritable bowel syndrome with constipation Irritable bowel syndrome Acquired hypothyroidism Unspecified hypothyroidism Vitamin D deficiency Unspecified vitamin D deficiency Vitamin B 12 deficiency Other B-complex deficiencies Myofascial pain Mylagia and myositis, unspecified Prediabetes Other abnormal glucose Gastroesophageal reflux disease, unspecified whether esophagitis present Anxiety and depression Dysthymic disorder Mixed hyperlipidemia Bipolar I disorder (HCC) Bipolar I disorder, most recent episode (or current) unspecified Personal history of fibromyalgia Personal history of other musculoskeletal disorders Migraine without aura and without status migrainosus, not intractable Migraine without aura, without mention of intractable migraine without mention of status migrainosus RLS (restless legs syndrome) Restless legs syndrome (RLS) documented in this encounter [facility]* Diagnosis Intractable chronic migraine without aura and without status migrainosus- Primary Chronic migraine without aura, with intractable migraine, so stated, without mention of status migrainosus Cervicogenic headache Headache [facility]* Diagnosis COPD with exacerbation (HCC)- Primary Obstructive chronic bronchitis with exacerbation documented in this encounter [facility] note* Diagnosis JORDAN (obstructive sleep apnea)- Primary Obstructive sleep apnea (adult) (pediatric) Anxiety and depression Dysthymic disorder documented in this encounter [facility] note* Diagnosis JORDAN (obstructive sleep apnea)- Primary Obstructive sleep apnea (adult) (pediatric) Anxiety and depression Dysthymic disorder Insomnia, unspecified type documented in this encounter [facility] for referral (narrative)* Diagnostic Procedure Only (Routine) - Closed Specialty Diagnoses / Procedures Referred By Ana roman Referred To Contact XR IMAGING Diagnoses Scoliosis, unspecified scoliosis type, unspecified spinal region Procedures XR SCOLI PA/LAT/SIDE BEND STAND 4V RADEX ENTIR THRC LMBR CRV SAC SPI W/SKULL 4/5 VW Ashley Hugo I, MD [address] [facility] [place] [address] Xr Imaging Referral ID Status Reason Start Date Expiration Date V isits Requested Visits Authorized [id number] Closed Auto-Generate d Referral 05/27/2022 06/26/2023 1 1 * Diagnostic Procedure Only (Routine) - Pending Review Specialty Diagnoses / Procedures Referred By Ana roman Referred To Contact XR IMAGING Diagnoses Cervical radiculopathy Procedures XR CERV OTHER 4V AP/LAT/FLX/EXT RADEX SPINE CERVICAL 4 OR 5 VIEWS Ashley Hugo I, MD [address] [facility] [place] [address] Xr Imaging Referral ID Status Reason Start Date Expiration Date Visits Requested Visits Authorized [id number] Pending Review Auto-Generat ed Referral 05/27/2022 06/26/2023 1 1 * MRI/CT (Routine) - Open Specialty Diagnoses / Procedures Referred By Contac t Referred To Contact MR IMAGING Diagnoses Cervical radiculopathy Procedures MRI CERVICAL SPINE WO IVCON MRI SPINAL CANAL CERVICAL W/O CONTRAST MATRL Ashley Hugo I, MD [address] [facility] [place] [address] Mr Imaging Referral ID Status Reason Start Date Expiration Date V isits Requested Visits Authorized [id number] Open Auto-Generate d Referral 05/27/2022 06/26/2023 1 1 * Diagnostic Procedure Only (Routine) - Authorized Specialty Diagnoses / Procedures Referred By Contac t Referred To Contact XR IMAGING Diagnoses Cervical radiculopathy Procedures XR CERV OTHER 4V AP/LAT/FLX/EXT RADEX SPINE CERVICAL 4 OR 5 VIEWS Ashley Hugo I, MD [address] [facility] [place] [address] Xr Imaging Referral ID Status Reason Start Date Expiration Date Visits Requested Visits Authorized [id number] Authorized Auto-Generat ed Referral 05/17/2022 06/16/2023 1 1 [facility] for referral (narrative)* Diagnostic Procedure Only (Routine) - Closed Specialty Diagnoses / Procedures Referred By Contac t Referred To Contact XR IMAGING Diagnoses Scoliosis, unspecified scoliosis type, unspecified spinal region Procedures XR SCOLI PA/LAT/SIDE BEND STAND 4V RADEX ENTIR THRC LMBR CRV SAC SPI W/SKULL 4/5 VW Ashley Hugo I, MD [address] [facility] [place] [address] Xr Imaging Referral ID Status Reason Start Date Expiration Date V isits Requested Visits Authorized [id number] Closed Auto-Generate d Referral 05/27/2022 06/26/2023 1 1 [facility] for referral (narrative)* Outpatient Procedure (Routine) - Authorized Specialty Diagnoses / Procedures Referred By Contac t Referred To Contact [facility] Diagnoses Dropped head syndrome Other spondylosis, cervical region Disturbance of skin sensation Decreased ROM of neck Procedures EMG(NEURO/NI) NERVE CONDUCTION STUDIES 9-10 STUDIES Divya Healy MD, PhD [address] [place] [address] [facility] [place] [address] [place] [address] Referral ID Status Reason Start Date Expiration Date Visits Requested Visits Authorized [id number] Authorized Auto-Generat ed Referral 07/10/2022 07/10/2023 1 1 [facility] for referral (narrative)* Diagnostic Procedure Only (Routine) - Authorized Specialty Diagnoses / Procedures Referred By Contac t Referred To Contact BR IMAGING Diagnoses Encounter for screening mammogram for breast cancer Procedures MASSIMO SCREENING SCREENING MAMMOGRAPHY BI 2-VIEW BREAST INC CAD Kyle Sylvester MD [facility] [place] [address] [facility] [address] [place] [id number] Referral ID Status Reason Start Date Expiration Date Visits Requested Visits Authorized [id number] Authorized Auto-Generat ed Referral 07/31/2022 08/30/2023 1 1 [facility] for referral (narrative)* Diagnostic Procedure Only (Routine) - Closed Specialty Diagnoses / Procedures Referred By Contac t Referred To Contact BR IMAGING Diagnoses Encounter for screening mammogram for breast cancer Procedures MASSIMO SCREENING SCREENING MAMMOGRAPHY BI 2-VIEW BREAST INC CAD Kyle Sylvester MD [address] [place] [address] [facility] [address] [place] [address] Referral ID Status Reason Start Date Expiration Date V isits Requested Visits Authorized [id number] Closed Auto-Generate d Referral 07/31/2022 08/30/2023 1 1 [facility] for referral (narrative)* Diagnostic Procedure Only (Routine) - Pending Review Specialty Diagnoses / Procedures Referred By Contac t Referred To Contact BR IMAGING Diagnoses Encounter for gynecological examination with abnormal finding Encounter for screening mammogram for breast cancer Dense breast tissue on mammogram Procedures MASSIMO SCREENING W EDNA SCREENING DIGITAL BREAST TOMOSYNTHESIS BI SCREENING MAMMOGRAPHY BI 2-VIEW BREAST INC Krys Hoff APRN.DAT[employer] SECURITY EXPERT [address] [place] [address] [facility] [address] [place] [address] Referral ID Status Reason Start Date Expiration Date Visits Requested Visits Authorized [id number] Pending Review Auto-Generat ed Referral 2 11/02/2023 1 1 [facility] for referral (narrative)* Diagnostic Procedure Only (Routine) - Pending Review Specialty Diagnoses / Procedures Referred By Ana t Referred To Contact XR IMAGING Diagnoses Elevated rheumatoid factor Procedures XR SACROILIAC JOINTS 2V AP PELVIS/FERGUESON RADIOLOGIC EXAMINATION SACROILIAC JNTS <3 VIEWS Laura Dorantes MD [address] [facility] [address] [place] [address] Xr Imaging Referral ID Status Reason Start Date Expiration Date Visits Requested Visits Authorized [id number] Pending Review Auto-Generat ed Referral 2 11/07/2023 1 1 * Diagnostic Procedure Only (Routine) - Pending Review Specialty Diagnoses / Procedures Referred By Contac t Referred To Contact XR IMAGING Diagnoses Elevated rheumatoid factor Procedures XR HAND GENERAL 3V PA/LAT/OBL RIGHT RADEX HAND MINIMUM 3 VIEWS Laura Dorantes MD [address] [place] [address] Xr Imaging Referral ID Status Reason Start Date Expiration Date Visits Requested Visits Authorized [id number] Pending Review Auto-Generat ed Referral 2 11/07/2023 1 1 * Diagnostic Procedure Only (Routine) - Pending Review Specialty Diagnoses / Procedures Referred By Contac t Referred To Contact XR IMAGING Diagnoses Elevated rheumatoid factor Procedures XR HAND GENERAL 3V PA/LAT/OBL LEFT RADEX HAND MINIMUM 3 VIEWS Laura Dorantes MD [address] [address] Xr Imaging Referral ID Status Reason Start Date Expiration Date Visits Requested Visits Authorized [id number] Pending Review Auto-Generat ed Referral 2 11/07/2023 1 1 [facility] Diagnostic Procedure Only (Routine) - Authorized Specialty Diagnoses / Procedures Referred By Contac t Referred To Contact US IMAGING Diagnoses Nausea and vomiting, unspecified vomiting type Procedures US ABD RT UPPER QUADRANT US ABDOMINAL REAL TIME W/IMAGE LIMITED Lizz Riggs PA-C [address] [facility] [place] [address] Us Imaging Referral ID Status Reason Start Date Expiration Date Visits Requested Visits Authorized [id number] Authorized Auto-Generat ed Referral 2 11/27/2023 1 1 * Outpatient Procedure (Routine) - Pending Review Specialty Diagnoses / Procedures Referred By Contac t Referred To Contact [facility] Diagnoses Gastroesophageal reflux disease, unspecified whether esophagitis present Procedures EGD DIAGNOSTIC ESOPHAGOGASTRODUODENOSC OPY TRANSORAL DIAGNOSTIC Lizz Riggs PA-C [address] [facility] [place] [address] [facility] [address] [place] [address] Referral ID Status Reason Start Date Expiration Date Visits Requested Visits Authorized [id number] Pending Review Auto-Generat ed Referral 2 10/28/2023 1 1 * Outpatient Procedure (Routine) - Authorized Specialty Diagnoses / Procedures Referred By Contac t Referred To Contact [facility] Diagnoses History of colonic polyps Procedures COLONOSCOPY SCREENING COLONOSCOPY FLX DX W/COLLJ SPEC WHEN PFRMD Lizz Riggs PA-C [address] [place] [address] [facility] [address] [place] [address] Referral ID Status Reason Start Date Expiration Date Visits Requested Visits Authorized [id number] Authorized Auto-Generat ed Referral 2 10/28/2023 1 1 [facility] for referral (narrative)* Diagnostic Procedure Only (Routine) - Closed Specialty Diagnoses / Procedures Referred By Contac t Referred To Contact XR IMAGING Diagnoses Repetitive stress injury Procedures XR FOOT GENERAL 3V AP/LAT/OBL LEFT RADEX FOOT COMPLETE MINIMUM 3 VIEWS Shashi Hallman [address] [place] [address] Xr Imaging Referral ID Status Reason Start Date Expiration Date V isits Requested Visits Authorized [id number] Closed Auto-Generate d Referral 10/29/2022 11/28/2023 1 1 [facility] for referral (narrative)* Diagnostic Procedure Only (Routine) - Pending Review Specialty Diagnoses / Procedures Referred By Contac t Referred To Contact [facility] Diagnoses Nausea and vomiting, unspecified vomiting type Nausea Procedures NM GASTRIC EMPTYING SOLID GASTRIC EMPTYING STUDY Lizz Riggs PA-C [address] [place] [address] [facility] [address] [place] [address] Referral ID Status Reason Start Date Expiration Date Visits Requested Visits Authorized [id number] Pending Review Auto-Generat ed Referral 12/31/2022 01/30/2024 1 1 [facility] for referral (narrative)* Outpatient Procedure (Routine) - Pending Review Specialty Diagnoses / Procedures Referred By Contac t Referred To Contact [facility] Diagnoses Gastroesophageal reflux disease with esophagitis without hemorrhage Procedures MANOMETRY ESOPHAGEAL FUNCTION W/IMPEDANCE GASTROESOPHAG REFLX TEST W/INTRLUML IMPED Abel Henry MD [address] [facility] [address] [place] [address] [place] [address] Referral ID Status Reason Start Date Expiration Date Visits Requested Visits Authorized [id number] Pending Review Auto-Generat ed Referral 01/08/2023 01/08/2024 1 1 * Outpatient Procedure (Routine) - Pending Review Specialty Diagnoses / Procedures Referred By Contac t Referred To Contact [facility] Diagnoses Gastroesophageal reflux disease with esophagitis without hemorrhage Procedures EGD - THERAPEUTIC, EUS, OR TUBE INTERVENTIONS ESOPHAGOGASTRODUODENOSC OPY TRANSORAL DIAGNOSTIC Abel Domínguez MD 1 [facility] Michael [address] [place] [address] [place] [id number] [place] [phone] Referral ID Status Reason Start Date Expiration Date Visits Requested Visits Authorized [id number] Pending Review Auto-Generat ed Referral 02/15/2023 01/08/2024 1 1 [facility] for referral (narrative)* Outpatient Procedure (Routine) - Closed Specialty Diagnoses / Procedures Referred By Contac t Referred To Contact Diagnoses Gastroesophageal reflux disease with esophagitis without hemorrhage Procedures EGD - THERAPEUTIC, EUS, OR TUBE INTERVENTIONS ESOPHAGOGASTRODUODENOSCOPY TRANSORAL DIAGNOSTIC Abel Domínguez MD [address] [facility] [address] [place] [address] [facility] [address] [place] [address] Referral ID Status Reason Start Date Expiration Date V isits Requested Visits Authorized [id number] Closed Auto-Generate d Referral 02/15/2023 01/08/2024 1 1 [facility] for referral (narrative)* Outpatient Procedure (Routine) - Pending Review Specialty Diagnoses / Procedures Referred By Contac t Referred To Contact [facility] Diagnoses Gastroparesis Gastroesophageal reflux disease with esophagitis without hemorrhage Procedures EGD - THERAPEUTIC, EUS, OR TUBE INTERVENTIONS ESOPHAGOGASTRODUODENOSC OPY TRANSORAL DIAGNOSTIC STOMACH SURGERY PROCEDURE UNLISTED Abel Domínguez MD [address] [address] [facility] [address] [place] [phone] Referral ID Status Reason Start Date Expiration Date Visits Requested Visits Authorized [id number] Pending Review Auto-Generat ed Referral 05/08/2023 03/24/2024 1 1 T [facility] for referral (narrative)* Diagnostic Procedure Only (Routine) - Authorized Specialty Diagnoses / Procedures [facility] To Contact MOLECULAR & FUNCTIONAL IMAGING Diagnoses Nausea Procedures NM GASTRIC EMPTYING SOLID GASTRIC EMPTYING STUDY Abel Domínguez MD [address] [address] Molecular & Functional Imaging [address] [place] [address] Referral ID Status Reason Start Date Expiration Date Visits Requested Visits Authorized [id number] Authorized Auto-Generat ed Referral 06/09/2023 07/08/2024 1 1 [facility] for referral (narrative)* Diagnostic Procedure Only (Routine) - Closed Specialty Diagnoses / Procedures Referred By Contac t Referred To Contact MOLECULAR & FUNCTIONAL IMAGING Diagnoses Nausea Procedures NM GASTRIC EMPTYING SOLID GASTRIC EMPTYING STUDY Abel Domínguez MD [address] [address] Molecular & Functional Imaging [address] [place], [place] [id number] Referral ID Status Reason Start Date Expiration Date V isits Requested Visits Authorized [id number] Closed Auto-Generate d Referral 06/09/2023 07/08/2024 1 1 [facility] for referral (narrative)* Diagnostic Procedure Only (Routine) - Closed Specialty Diagnoses / Procedures Referred By Contac t Referred To Contact US IMAGING Diagnoses Nausea and vomiting, unspecified vomiting type Procedures US ABD RT UPPER QUADRANT US ABDOMINAL REAL TIME W/IMAGE LIMITED Lizz Riggs PA-C [address] [place] [address] [place] [address] Referral ID Status Reason Start Date Expiration Date V isits Requested Visits Authorized [id number] Closed Auto-Generate d Referral 10/28/2022 11/27/2023 1 1 [facility] for referral (narrative)* Diagnostic Procedure Only (Routine) - Closed Specialty Diagnoses / Procedures Referred By Contac t Referred To Contact XR IMAGING Diagnoses Pain Procedures XR KNEE GENERAL 4V AP BOTH/PA BOTH/LAT/MERC LEFT RADIOLOGIC EXAM KNEE COMPLETE 4/MORE VIEWS Nathan Grewal MD [address] [place] [address] [place] [address] Referral ID Status Reason Start Date Expiration Date V isits Requested Visits Authorized [id number] Closed Auto-Generate d Referral 02/12/2023 03/13/2024 1 1 [facility] for referral (narrative)* Diagnostic Procedure Only (Routine) - Closed Specialty Diagnoses / Procedures Referred By Contac t Referred To Contact XR IMAGING Diagnoses Repetitive stress injury Procedures XR FOOT GENERAL 3V AP/LAT/OBL LEFT RADEX FOOT COMPLETE MINIMUM 3 VIEWS Shashi Hallman [address] [place] [address] [place] [address] Referral ID Status Reason Start Date Expiration Date V isits Requested Visits Authorized [id number] Closed Auto-Generate d Referral 10/29/2022 11/28/2023 1 1 [facility] for referral (narrative)* Diagnostic Procedure Only (Routine) - Closed Specialty Diagnoses / Procedures Referred By Contac t Referred To Contact BR IMAGING Diagnoses Encounter for gynecological examination with abnormal finding Encounter for screening mammogram for breast cancer Dense breast tissue on mammogram Procedures MASSIMO SCREENING W EDNA SCREENING DIGITAL BREAST TOMOSYNTHESIS BI SCREENING MAMMOGRAPHY BI 2-VIEW BREAST INC Krys Hoff APRN.DATABASE SECURITY EXPERT [address] [place] [address] Br Imaging [address] [place] [address] Referral ID Status Reason Start Date Expiration Date V isits Requested Visits Authorized [id number] Closed Auto-Generate d Referral 10/03/2022 11/02/2023 1 1 [facility] for visit Narrative* Auth/Cert Specialty Diagnoses / Procedures [facility] Diagnoses Cervical spondylosis without myelopathy Radiculopathy, cervical region Procedures DSTR NROLYTC AGNT PARVERTEB FCT SNGL CRVCL/THORA DSTR NROLYTC AGNT PARVERTEB FCT ADDL CRVCL/THORA DESTRUCTION BY NEUROLYTIC AGENT PARAVERTEBRAL FACET JOINT NERVE(S) W/ IMAGING GUIDANCE CERVICAL SINGLE FACET JOINT DESTRUCTION BY NEUROLYTIC AGENT PARAVERTEBRAL FACET JOINT NERVE(S) W/ IMAGING GUIDANCE CERVICAL 2ND ADD FACET JOINT BILATERAL [facility] [address] [place] [address] Referral ID Status Reason Start Date Expiration Date Visits Re quested Visits Authorized [id number] 1 1 [facility] for visit Narrative* Diagnostic Procedure Only (Routine) - Closed Specialty Diagnoses / Procedures [facility] To Contact XR IMAGING Diagnoses Scoliosis, unspecified scoliosis type, unspecified spinal region Procedures XR SCOLI PA/LAT/SIDE BEND STAND 4V RADEX ENTIR THRC LMBR CRV SAC SPI W/SKULL 4/5 VW Ashley Hugo I, MD [address] [place] [address] Xr Imaging Referral ID Status Reason Start Date Expiration Date V isits Requested Visits Authorized [id number] Closed Auto-Generate d Referral 05/27/2022 06/26/2023 1 1 [facility] for visit Narrative* Outpatient Procedure (Routine) - Closed Specialty Diagnoses / Procedures Referred By Contac t Referred To Contact [facility] Diagnoses Dropped head syndrome Other spondylosis, cervical region Disturbance of skin sensation Decreased ROM of neck Procedures EMG(NEURO/NI) NERVE CONDUCTION STUDIES 9-10 STUDIES Divya Healy MD, PhD [address] [place] [address] [facility] [place] [address] [place] [address] Referral ID Status Reason Start Date Expiration Date V isits Requested Visits Authorized [id number] Closed Auto-Generate d Referral 07/10/2022 07/10/2023 1 1 [facility] for visit Narrative* Diagnostic Procedure Only (Routine) - Closed Specialty Diagnoses / Procedures Referred By Ana t Referred To Contact BR IMAGING Diagnoses Encounter for screening mammogram for breast cancer Procedures MASSIMO SCREENING SCREENING MAMMOGRAPHY BI 2-VIEW BREAST INC CAD Kyle Sylvester MD [address] [place] [address] Br Imaging [address] [place] [phone] Referral ID Status Reason Start Date Expiration Date V isits Requested Visits Authorized [id number] Closed Auto-Generate d Referral 07/31/2022 08/30/2023 1 1 [facility] for visit Narrative* Outpatient Procedure (Routine) - Closed Specialty Diagnoses / Procedures Referred By Ana t Referred To Contact [facility] Diagnoses Abnormal US (ultrasound) of abdomen Procedures DDI VIBRATION CONTROLLED TRANSIENT ELASTOGRAPHY (VCTE) LIVER ELASTOGRAPHY W/O IMAG W/I&R Lizz Riggs PA-C [address] [facility] [place] [address] [facility] [address] [place] [address] Referral ID Status Reason Start Date Expiration Date V isits Requested Visits Authorized [id number] Closed Auto-Generate d Referral 10/31/2022 10/31/2023 1 1 [facility] for visit Narrative* Outpatient Procedure (Routine) - Closed Specialty Diagnoses / Procedures Referred By Contac t Referred To Contact Diagnoses Gastroesophageal reflux disease with esophagitis without hemorrhage Procedures EGD - THERAPEUTIC, EUS, OR TUBE INTERVENTIONS ESOPHAGOGASTRODUODENOSCOPY TRANSORAL DIAGNOSTIC Abel Domínguez MD [address] [address] [facility] 1 [place] [address] Referral ID Status Reason Start Date Expiration Date V isits Requested Visits Authorized [id number] Closed Auto-Generate d Referral 02/15/2023 01/08/2024 1 1 [facility] for visit Narrative* Diagnostic Procedure Only (Routine) - Closed Specialty Diagnoses / Procedures Referred By Contac t Referred To Contact MOLECULAR & FUNCTIONAL IMAGING Diagnoses Nausea Procedures NM GASTRIC EMPTYING SOLID GASTRIC EMPTYING STUDY Abel Domínguez MD [address] [address] Molecular & Functional Imaging [address] [place] [address] Referral ID Status Reason Start Date Expiration Date V isits Requested Visits Authorized [id number] Closed Auto-Generate d Referral 06/09/2023 07/08/2024 1 1 [facility] for visit Narrative* Diagnostic Procedure Only (Routine) - Closed Specialty Diagnoses / Procedures Referred By Contac t Referred To Contact XR IMAGING Diagnoses Pain Procedures XR KNEE GENERAL 4V AP BOTH/PA BOTH/LAT/MERC LEFT RADIOLOGIC EXAM KNEE COMPLETE 4/MORE VIEWS Nathan Grewal MD [address] [place] [address] [place] [address] Referral ID Status Reason Start Date Expiration Date V isits Requested Visits Authorized [id number] Closed Auto-Generate d Referral 02/12/2023 03/13/2024 1 1 [facility] for visit Narrative* Diagnostic Procedure Only (Routine) - Closed Specialty Diagnoses / Procedures Referred By Contac t Referred To Contact XR IMAGING Diagnoses Repetitive stress injury Procedures XR FOOT GENERAL 3V AP/LAT/OBL LEFT RADEX FOOT COMPLETE MINIMUM 3 VIEWS Shashi Hallman [address] [place] [address] [place] [address] Referral ID Status Reason Start Date Expiration Date V isits Requested Visits Authorized [id number] Closed Auto-Generate d Referral 10/29/2022 11/28/2023 1 1 [facility] for visit Narrative* Diagnostic Procedure Only (Routine) - Closed Specialty Diagnoses / Procedures Referred By Contac t Referred To Contact BR IMAGING Diagnoses Encounter for gynecological examination with abnormal finding Encounter for screening mammogram for breast cancer Dense breast tissue on mammogram Procedures MASSIMO SCREENING W EDNA SCREENING DIGITAL BREAST TOMOSYNTHESIS BI SCREENING MAMMOGRAPHY BI 2-VIEW BREAST INC Krys Hoff, CARE PROGRAM RESIDENT.DATABASE SECURITY EXPERT [address] [place] [address] Br Imaging [address] [place] [address] Referral ID Status Reason Start Date Expiration Date V isits Requested Visits Authorized [id number] Closed Auto-Generate d Referral 10/03/2022 11/02/2023 1 1 [facility] Summary Purpose Family History No Family History Records FoundNo Family History Records FoundNo Family History Records FoundNo Family History Records FoundNo Family History Records Found Advance Directives Documents on File Type Date Recorded Patient Van Driver Helper Expl anation Advance Directive(s) 01/02/2022 9:00 AM Advance Directive(s) 12/19/2021 11:10 AM Advance Directive(s) 09/19/2021 8:43 AM Advance Directive(s) 10/18/2020 6:23 AM Advance Directive(s) 10/02/2020 7:23 PM Advance Directive(s) 08/06/2020 5:00 PM Advance Directive(s) 07/31/2020 1:58 PM Advance Directive(s) 12/01/2019 10:34 AM Advance Directive(s) 02/04/2018 7:49 AM Advance Directive(s) 01/23/2018 11:00 AM Advance Directive(s) 05/03/2016 10:54 AM Advance Directive(s) 09/26/2015 3:20 PM Documents on File Type Date Recorded Patient Van Driver Helper Expl anation Advance Directive(s) 01/02/2022 9:00 AM Advance Directive(s) 12/19/2021 11:10 AM Advance Directive(s) 09/19/2021 8:43 AM Advance Directive(s) 10/18/2020 6:23 AM Advance Directive(s) 10/02/2020 7:23 PM Advance Directive(s) 08/06/2020 5:00 PM Advance Directive(s) 07/31/2020 1:58 PM Advance Directive(s) 12/01/2019 10:34 AM Advance Directive(s) 02/04/2018 7:49 AM Advance Directive(s) 01/23/2018 11:00 AM Advance Directive(s) 05/03/2016 10:54 AM Advance Directive(s) 09/26/2015 3:20 PM Documents on File Type Date Recorded Patient Van Driver Helper Expl anation Advance Directive(s) 02/20/2022 7:53 AM Advance Directive(s) 01/02/2022 9:00 AM Advance Directive(s) 12/19/2021 11:10 AM Advance Directive(s) 09/19/2021 8:43 AM Advance Directive(s) 10/18/2020 6:23 AM Advance Directive(s) 10/02/2020 7:23 PM Advance Directive(s) 08/06/2020 5:00 PM Advance Directive(s) 07/31/2020 1:58 PM Advance Directive(s) 12/01/2019 10:34 AM Advance Directive(s) 02/04/2018 7:49 AM Advance Directive(s) 01/23/2018 11:00 AM Advance Directive(s) 05/03/2016 10:54 AM Advance Directive(s) 09/26/2015 3:20 PM Documents on File Type Date Recorded Patient Van Driver Helper Expl anation Advance Directive(s) 02/20/2022 7:53 AM Advance Directive(s) 01/02/2022 9:00 AM Advance Directive(s) 12/19/2021 11:10 AM Advance Directive(s) 09/19/2021 8:43 AM Advance Directive(s) 10/18/2020 6:23 AM Advance Directive(s) 10/02/2020 7:23 PM Advance Directive(s) 08/06/2020 5:00 PM Advance Directive(s) 07/31/2020 1:58 PM Advance Directive(s) 12/01/2019 10:34 AM Advance Directive(s) 02/04/2018 7:49 AM Advance Directive(s) 01/23/2018 11:00 AM Advance Directive(s) 05/03/2016 10:54 AM Advance Directive(s) 09/26/2015 3:20 PM Documents on File Type Date Recorded Patient Van Driver Helper Expl anation Advance Directive(s) 03/20/2022 7:40 AM Advance Directive(s) 02/20/2022 7:53 AM Advance Directive(s) 01/02/2022 9:00 AM Advance Directive(s) 12/19/2021 11:10 AM Advance Directive(s) 09/19/2021 8:43 AM Advance Directive(s) 10/18/2020 6:23 AM Advance Directive(s) 10/02/2020 7:23 PM Advance Directive(s) 08/06/2020 5:00 PM Advance Directive(s) 07/31/2020 1:58 PM Advance Directive(s) 12/01/2019 10:34 AM Advance Directive(s) 02/04/2018 7:49 AM Advance Directive(s) 01/23/2018 11:00 AM Advance Directive(s) 05/03/2016 10:54 AM Advance Directive(s) 09/26/2015 3:20 PM Documents on File Type Date Recorded Patient Van Driver Helper Expl anation Advance Directive(s) 04/03/2022 8:34 AM Advance Directive(s) 03/20/2022 7:40 AM Advance Directive(s) 02/20/2022 7:53 AM Advance Directive(s) 01/02/2022 9:00 AM Advance Directive(s) 12/19/2021 11:10 AM Advance Directive(s) 09/19/2021 8:43 AM Advance Directive(s) 10/18/2020 6:23 AM Advance Directive(s) 10/02/2020 7:23 PM Advance Directive(s) 08/06/2020 5:00 PM Advance Directive(s) 07/31/2020 1:58 PM Advance Directive(s) 12/01/2019 10:34 AM Advance Directive(s) 02/04/2018 7:49 AM Advance Directive(s) 01/23/2018 11:00 AM Advance Directive(s) 05/03/2016 10:54 AM Advance Directive(s) 09/26/2015 3:20 PM Documents on File Type Date Recorded Patient Van Driver Helper Expl anation Advance Directive(s) 04/03/2022 8:34 AM Advance Directive(s) 03/20/2022 7:40 AM Advance Directive(s) 02/20/2022 7:53 AM Advance Directive(s) 01/02/2022 9:00 AM Advance Directive(s) 12/19/2021 11:10 AM Advance Directive(s) 09/19/2021 8:43 AM Advance Directive(s) 10/18/2020 6:23 AM Advance Directive(s) 10/02/2020 7:23 PM Advance Directive(s) 08/06/2020 5:00 PM Advance Directive(s) 07/31/2020 1:58 PM Advance Directive(s) 12/01/2019 10:34 AM Advance Directive(s) 02/04/2018 7:49 AM Advance Directive(s) 01/23/2018 11:00 AM Advance Directive(s) 05/03/2016 10:54 AM Advance Directive(s) 09/26/2015 3:20 PM Documents on File Type Date Recorded Patient Van Driver Helper Expl anation Advance Directive(s) 09/26/2015 3:20 PM Documents on File Type Date Recorded Patient Van Driver Helper Expl anation Advance Directive(s) 09/26/2015 3:20 PM Latest Code Status on File Code Status Date Activated Date Inactivated Comments Full Code 05/08/2023 6:55 PM 05/10/2023 9:48 PM Full Code Order Discussed With: Patient Latest Code Status on File Code Status Date Activated Date Inactivated Comments Full Code 05/08/2023 6:55 PM 05/10/2023 9:48 PM Question Answer Comments Full Code Order Discussed With: Patient Latest Code Status on File Code Status Date Activated Date Inactivated Comments Full Code 05/08/2023 6:55 PM 05/10/2023 9:48 PM Question Answer Comments Full Code Order Discussed With: Patient Latest Code Status on File Code Status Date Activated Date Inactivated Comments Full Code 05/08/2023 6:55 PM 05/10/2023 9:48 PM Question Answer Comments Full Code Order Discussed With: Patient Latest Code Status on File Code Status Date Activated Date Inactivated Comments Full Code 05/08/2023 6:55 PM 05/10/2023 9:48 PM Question Answer Comments Full Code Order Discussed With: Patient Reason for Referral Specialty Diagnoses / Procedures Referred By Contac t Referred To Contact CT IMAGING Diagnoses Left flank pain Procedures CT FLANK WO IVCON CT ABD & PELVIS W/O CONTRAST Valencia Mccollum APRN.CNP [address] [place] [address] Ct Imaging Referral ID Status Reason Start Date Expiration Date V isits Requested Visits Authorized [id number] Closed Auto-Generat ed Referral Patient Cleared - Admin/Chairm an/Director advise to proceed 02/06/2022 03/08/2022 1 1 Specialty Diagnoses / Procedures Referred By Contac t Referred To Contact CT IMAGING Diagnoses Flank pain Procedures CT FLANK WO IVCON CT ABD & PELVIS W/O CONTRAST Kyle Sylvester MD [address] [place] [address] Ct Imaging Referral ID Status Reason Start Date Expiration Date Visits Requested Visits Authorized [id number] Additional Clinical Info Needed Auto-Generat ed Referral 03/02/2022 04/01/2023 1 1 Specialty Diagnoses / Procedures Referred By Contac t Referred To Contact [facility] Diagnoses Acute right-sided thoracic back pain Lumbar pain Procedures CONSULT TO PHYSICAL THERAPY PHYSICAL THERAPY EVALUATION HIGH COMPLEX 45 MINS Kyle Sylvester MD [address] [place] [address] [facility] [place] [address] [place] [address] Referral ID Status Reason Start Date Expiration Date Visits Requested Visits Authorized [id number] Pending Review Auto-Generat ed Referral 03/04/2022 03/04/2023 1 1 Specialty Diagnoses / Procedures Referred By Contac t Referred To Contact XR IMAGING Diagnoses Lumbar pain Procedures XR LUMBAR PARS DEFECT 4V AP/LAT/BOTH OBL RADEX SPINE LUMBOSACRAL MINIMUM 4 VIEWS Kyle Sylvester MD [address] [place] [address] Xr Imaging Referral ID Status Reason Start Date Expiration Date V isits Requested Visits Authorized [id number] Closed Auto-Generate d Referral 03/04/2022 11/16/2022 1 1 Specialty Diagnoses / Procedures Referred By Contac t Referred To Contact XR IMAGING Diagnoses Acute right-sided thoracic back pain Procedures XR THORACIC GENERAL 3V AP/LAT/SWIMMERS RADEX SPINE THORACIC 3 VIEWS Kyle Sylvester MD [address] [place] [address] Xr Imaging Referral ID Status Reason Start Date Expiration Date V isits Requested Visits Authorized [id number] Closed Auto-Generate d Referral 03/04/2022 11/16/2022 1 1 Referral ID Status Reason Start Date Expiration Date Visits Requested Visits Authorized [id number] Authorized Auto-Generat ed Referral 03/03/2022 11/16/2022 2 2 Specialty Diagnoses / Procedures Referred By Contac t Referred To Contact CT IMAGING Diagnoses Lung nodules Procedures CT CHEST WO IVCON DIAGNOSTIC COMPUTED TOMOGRAPHY THORAX W/O CNTRST Kyle Sylvester MD [address] [place] [address] Ct Imaging Referral ID Status Reason Start Date Expiration Date V isits Requested Visits Authorized [id number] Closed Auto-Generate d Referral 03/27/2022 04/26/2023 1 1 Specialty Diagnoses / Procedures Referred By Contac t Referred To Contact Neurosurgery Diagnoses Cervical spondylosis without myelopathy Radiculopathy, cervical region Procedures CONSULT TO NEUROSURGERY Catherine Peerz, CARE PROGRAM RESIDENT.DATABASE SECURITY EXPERT [address] [place] [address] Referral ID Status Reason Start Date Expiration Date Visits Requested Visits Authorized [id number] Ref Not Required PCP Requested Referral 05/08/2022 08/06/2022 3 3 Specialty Diagnoses / Procedures Referred By Contac t Referred To Contact MR IMAGING Diagnoses Cervical radiculopathy M54.12 (ICD-10-CM) - Cervical radiculopathy Procedures MRI CERVICAL SPINE WO IVCON MRI SPINAL CANAL CERVICAL W/O CONTRAST MATRL MRI CERVICAL SPINE WO IVCON Ashley Hugo I, MD [address] [place] [address] Mr Imaging Referral ID Status Reason Start Date Expiration Date V isits Requested Visits Authorized [id number] Closed Auto-Generate d Referral 05/29/2022 11/16/2022 1 1 Specialty Diagnoses / Procedures Referred By Contac t Referred To Contact Neurology / NEUROMUSCULAR Diagnoses Neck muscle weakness Procedures CONSULT TO NEUROLOGY OFFICE/OUTPATIENT [facility] 60-74 MINUTES Felipe Calixto MD [address] [address] Referral ID Status Reason Start Date Expiration Date Visits Requested Visits Authorized [id number] Pending Review PCP Requested Referral 06/24/2022 06/24/2023 1 1 Specialty Diagnoses / Procedures Referred By Contac t Referred To Contact Rheumatology Diagnoses Elevated rheumatoid factor Procedures CONSULT TO RHEUM/IMMUN DISEASE OFFICE/OUTPATIENT [facility] 60-74 MINUTES Olvin Richard PA-C [address] [place] [address] Referral ID Status Reason Start Date Expiration Date Visits Requested Visits Authorized [id number] Authorized PCP Requested Referral 2 10/02/2023 1 1 Specialty Diagnoses / Procedures Referred By Contac t Referred To Contact CT IMAGING Diagnoses Nausea and vomiting, unspecified vomiting type Generalized abdominal pain Nausea Procedures CT ABD/PEL W IVCON CT ABD & PELVIS W/CONTRAST Lizz Riggs PA-C [address] [place] [address] Ct Imaging Referral ID Status Reason Start Date Expiration Date Visits Requested Visits Authorized [id number] Authorized Auto-Generat ed Referral 12/26/2022 01/25/2024 1 1 Referral ID Status Reason Start Date Expiration Date V isits Requested Visits Authorized [id number] Closed Auto-Generate d Referral 12/26/2022 01/25/2024 1 1 Specialty Diagnoses / Procedures Referred By Contac t Referred To Contact General Surgery Diagnoses Gastric diverticulum Nausea and vomiting, unspecified vomiting type Generalized abdominal pain Procedures CONSULT TO GENERAL SURGERY OFFICE/OUTPATIENT [facility] 60-74 MINUTES Lizz Riggs PA-C [address] [place] [address] Referral ID Status Reason Start Date Expiration Date Visits Requested Visits Authorized [id number] Pending Review PCP Requested Referral 12/30/2022 12/30/2023 1 1 Specialty Diagnoses / Procedures Referred By Contac t Referred To Contact Nutrition Diagnoses Abnormal weight loss Procedures CONSULT TO NUTRITION THERAPY MEDICAL NUTRITION ASSMT&IVNTJ INDIV EACH 15 DC MEDICAL NUTRITION ASSMT&IVNTJ INDIV EACH 15 DC MEDICAL NUTRITION ASSMT&IVNTJ INDIV EACH 15 DC MEDICAL NUTRITION ASSMT&IVNTJ INDIV EACH 15 DC Lizz Riggs PA-C [address] [place] [address] Referral ID Status Reason Start Date Expiration Date Visits Requested Visits Authorized [id number] Authorized PCP Requested Referral 01/13/2023 01/13/2024 1 1 Specialty Diagnoses / Procedures Referred By Contac t Referred To Contact Diagnoses Intractable chronic migraine without aura and without status migrainosus Cervicogenic headache Procedures PROVIDER ORDERED FOLLOW UP OFFICE/OUTPATIENT [facility] MDM 60-74 MINUTES Gogo Lowery APRN.DATABASE SECURITY EXPERT [address] [place] [address] Referral ID Status Reason Start Date Expiration Date Visits Requested Visits Authorized [id number] Pending Review PCP Requested Referral 07/25/2023 01/22/2024 1 1 Specialty Diagnoses / Procedures Referred By Contac t Referred To Contact Diagnoses Gastroparesis Gastroesophageal reflux disease with esophagitis without hemorrhage Procedures CONSULT TO PRE-SURGICAL TESTING (AG) Abel Domínguez MD [address] [address] Referral ID Status Reason Start Date Expiration Date Visits Requested Visits Authorized [id number] Ref Not Required PCP Requested Referral 03/21/2023 06/19/2023 1 1 Specialty Diagnoses / Procedures Referred By Contac t Referred To Contact Neurology Diagnoses Fatigue, unspecified type Generalized weakness Balance problems Procedures CONSULT TO NEUROLOGY OFFICE/OUTPATIENT [facility] MDM 60-74 MINUTES Kyle Sylvester MD [address] [place] [address] Referral ID Status Reason Start Date Expiration Date Visits Requested Visits Authorized [id number] Pending Review PCP Requested Referral 06/17/2023 06/16/2024 1 1 Specialty Diagnoses / Procedures Referred By Conterich t Referred To Contact CT IMAGING Diagnoses Encounter for screening for lung cancer Former tobacco use Procedures CT LUNG SCREEN WO IVCON COMPUTED TOMOGRAPHY THORAX LW DOSE LNG CA SCR C- Coral Marino, CARE PROGRAM RESIDENT.DAT[employer] SEC[employer]ITY EXP[employer] [address] [place] [address] [place] [address] Referral ID Status Reason Start Date Expiration Date Visits Requested Visits Authorized [id number] Authorized Auto-Generat ed Referral 07/08/2023 11/16/2023 1 1 Referral ID Status Reason Start Date Expiration Date Visits Requested Visits Authorized [id number] Pending Review Auto-Generat ed Referral 07/15/2023 08/13/2024 1 1 Referral ID Status Reason Start Date Expiration Date V isits Requested Visits Authorized [id number] Closed Auto-Generate d Referral 07/08/2023 11/16/2023 1 1 Medications Administered Section Inactive Administered Medications - up to 3 most recent administrations Medication Order MAR Action Action Date Dose Rate Site lidocaine 2 % (XYLOCAINE) URETHRAL, ONCE, 1 dose, On Fri03/19/22 at 1400, FOR EXTERNAL USE ONLY APPLY TO: 6 ml Given 03/19/2022 1:40 PM EDT 6 mL onabotulinum toxin type A 100 Units injection (BOTOX) 100 Units, INTRAVESICAL, ONCE (UP TO 30 DAYS AMB), 1 dose, On Fri03/19/22 at 1400, This record documents the total dose provided to patient. See progress note for specific locations and amounts administered. REFRIGERATE - Pharmaceutical Waste: Lab Pack - Given 03/19/2022 1:45 PM EDT 100 Units sulfamethoxazole-trimethoprim 800-160 mg 1 tablet (BACTRIM DS,SEPTRA DS) 1 tablet, ORAL, ONCE, 1 dose, On Fri03/19/22 at 1400, Please document the antimicrobial indication: Empiric Given 03/19/2022 1:36 PM EDT 1 tablet Inactive Administered Medications - up to 3 most recent administrations Medication Order MAR Action Action Date Dose Rate Site bupivacaine(PF) 0.75 % (7.5 mg/mL) 37.5 mg injection (MARCAINE PF) 37.5 mg (5 mL), OTHER, ONCE, 1 dose, On Sydnie 06/06/22 at 1400 Given 06/06/2022 1:48 PM EDT 37.5 mg dexAMETHasone sodium phosphate 10 mg injection (DECADRON) 10 mg, OTHER, ONCE, 1 dose, On Sydnie 06/06/22 at 1400 Given by [facility] 06/06/2022 1:48 PM EDT 10 mg iohexol 300 mg IV injection (OMNIPAQUE 300) 300 mg, OTHER, ONCE, 1 dose, On Sydnie 06/06/22 at 1400 Given by [facility] 06/06/2022 1:47 PM EDT 300 mg lidocaine 10 mg/mL (1 %) 100 mg injection (XYLOCAINE) 100 mg, OTHER, ONCE, 1 dose, On Sydnie 06/06/22 at 1400 Given by [facility] 06/06/2022 1:47 PM EDT 100 mg Inactive Administered Medications - up to 3 most recent administrations Medication Order MAR Action Action Date Dose Rate Site dexAMETHasone sodium phosphate 10 mg injection (DECADRON) 10 mg, OTHER, ONCE, 1 dose, On Sydnie 06/20/22 at 1430 Given by [facility] 06/20/2022 2:58 PM EDT 10 mg iohexol 300 mg IV injection (OMNIPAQUE 300) 300 mg, OTHER, ONCE, 1 dose, On Sydnie 06/20/22 at 1400 Given by [facility] 06/20/2022 2:16 PM EDT 300 mg lidocaine (PF) 20 mg/mL (2 %) 200 mg injection (XYLOCAINE) 200 mg (10 mL), OTHER, ONCE, 1 dose, On Sydnie 06/20/22 at 1400 Given by [facility] 06/20/2022 2:15 PM EDT 200 mg lidocaine 10 mg/mL (1 %) 100 mg injection (XYLOCAINE) 100 mg, OTHER, ONCE, 1 dose, On Sydnie 06/20/22 at 1400 Given by [facility] 06/20/2022 2:15 PM EDT 100 mg Inactive Administered Medications - up to 3 most recent administrations Medication Order MAR Action Action Date Dose Rate Site iohexol 240 mg IV injection (OMNIPAQUE 240) 240 mg (1 mL), OTHER, ONCE, 1 dose, On Sydnie 07/04/22 at 1430 Given by [facility] 07/04/2022 3:20 PM EDT 240 mg lidocaine (PF) 10 mg/mL (1 %) 50 mg injection (XYLOCAINE) 50 mg (5 mL), OTHER, ONCE, 1 dose, On Sydnie 07/04/22 at 1430 Given by [facility] 07/04/2022 3:20 PM EDT 50 mg lidocaine (PF) 20 mg/mL (2 %) 80 mg injection (XYLOCAINE) 80 mg (4 mL), OTHER, ONCE, 1 dose, On Sydnie 07/04/22 at 1430 Given by [facility] 07/04/2022 3:20 PM EDT 80 mg methylPREDNISolone acetate 40 mg injection (DEPO-Medrol) 40 mg, OTHER, ONCE, 1 dose, On Sydnie 07/04/22 at 1430 Given by [facility] 07/04/2022 3:21 PM EDT 40 mg Inactive Administered Medications - up to 3 most recent administrations Medication Order MAR Action Action Date Dose Rate Site lidocaine 2 % (XYLOCAINE) URETHRAL, ONCE, 1 dose, On Fri07/23/22 at 1430, FOR EXTERNAL USE ONLY APPLY TO: 6 cc Given 07/23/2022 1:45 PM EDT 6 mL onabotulinum toxin type A 100 Units injection (BOTOX) 100 Units, INTRAVESICAL, ONCE (UP TO 30 DAYS AMB), 1 dose, On e 07/23/22 at 1430, This record documents the total dose provided to patient. See progress note for specific locations and amounts administered. REFRIGERATE - Pharmaceutical Waste: Lab Pack - Given 07/23/2022 1:50 PM EDT 100 Units sulfamethoxazole-trimethoprim 800-160 mg 1 tablet (BACTRIM DS,SEPTRA DS) 1 tablet, ORAL, ONCE, 1 dose, On Fri07/23/22 at 1430, Please document the antimicrobial indication: Empiric Given 07/23/2022 1:39 PM EDT 1 tablet Inactive Administered Medications - up to 3 most recent administrations Medication Order MAR Action Action Date Dose Rate Site lactated ringers iv infusion 30 mL/hr, INTRAVENOUS, CONTINUOUS, Starting on Fri02/19/23 at 1230, Until Fri02/19/23 at 1415, Preprocedure New Bag/Syringe/Mushtaq le 02/19/2023 12:30 PM EDT 30 mL/hr 30 mL/hr lidocaine 10 mg/mL (1 %) 1-2 mg injection (XYLOCAINE) 1-2 mg (0.1-0.2 mL), INTRADERMAL, NEEDED, 1 dose, Starting on Fri02/19/23 at 1221, Until Fri02/19/23 at 1222, See admin instructions, May use prior to starting IV, Preprocedure Given 02/19/2023 12:22 PM EDT 1 mg Hand, [facility] Concerns Infection Onset Date Last Indicated Resolved Time COVID-19 Rule-Out 12/02/2022 12/02/2022 Additional Source Comments INFORMATION SOURCE (unrecogn ized section and content) DATE CREATED AUTHOR AUTHOR'S ORGANIZ ATION 11/07/2020 [employer] DATE CREATED AUTHOR AUTHOR'S ORGANIZ ATION 12/05/2023 [facility] DATE CREATED AUTHOR AUTHOR'S ORGANIZ ATION 12/15/2023 [facility] DATE CREATED AUTHOR AUTHOR'S ORGANIZ ATION 12/16/2023 [facility] Source Comments (unrecognize d section and content) In the event this informatio n is protected by the Federal Confidentiality of Alcohol and Drug Abuse Patient Records regulations: The Federal rules restrict any use of the information to criminally investigate or prosecute any alcohol or drug abuse patient.[facility] the event this information is protected by the Federal Confidentiality of Alcohol and Drug Abuse Patient Records regulations: The Federal rules restrict any use of the information to criminally investigate or prosecute any alcohol or drug abuse patient.[facility] HospitalIn the event this information is protected by the Federal Confidentiality of Alcohol and Drug Abuse Patient Records regulations: The Federal rules restrict any use of the information to criminally investigate or prosecute any alcohol or drug abuse patient.[facility] HospitalIn the event this information is protected by the Federal Confidentiality of Alcohol and Drug Abuse Patient Records regulations: The Federal rules restrict any use of the information to criminally investigate or prosecute any alcohol or drug abuse patient.[facility] HospitalIn the event this information is protected by the Federal Confidentiality of Alcohol and Drug Abuse Patient Records regulations: The Federal rules restrict any use of the information to criminally investigate or prosecute any alcohol or drug abuse patient.[facility] HospitalIn the event this information is protected by the Federal Confidentiality of Alcohol and Drug Abuse Patient Records regulations: The Federal rules restrict any use of the information to criminally investigate or prosecute any alcohol or drug abuse patient.[facility] HospitalIn the event this information is protected by the Federal Confidentiality of Alcohol and Drug Abuse Patient Records regulations: The Federal rules restrict any use of the information to criminally investigate or prosecute any alcohol or drug abuse patient.[facility] HospitalIn the event this information is protected by the Federal Confidentiality of Alcohol and Drug Abuse Patient Records regulations: The Federal rules restrict any use of the information to criminally investigate or prosecute any alcohol or drug abuse patient.[facility] HospitalIn the event this information is protected by the Federal Confidentiality of Alcohol and Drug Abuse Patient Records regulations: The Federal rules restrict any use of the information to criminally investigate or prosecute any alcohol or drug abuse patient.[facility] HospitalIn the event this information is protected by the Federal Confidentiality of Alcohol and Drug Abuse Patient Records regulations: The Federal rules restrict any use of the information to criminally investigate or prosecute any alcohol or drug abuse patient.[facility] HospitalIn the event this information is protected by the Federal Confidentiality of Alcohol and Drug Abuse Patient Records regulations: The Federal rules restrict any use of the information to criminally investigate or prosecute any alcohol or drug abuse patient.[facility] HospitalIn the event this information is protected by the Federal Confidentiality of Alcohol and Drug Abuse Patient Records regulations: The Federal rules restrict any use of the information to criminally investigate or prosecute any alcohol or drug abuse patient.[facility] HospitalIn the event this information is protected by the Federal Confidentiality of Alcohol and Drug Abuse Patient Records regulations: The Federal rules restrict any use of the information to criminally investigate or prosecute any alcohol or drug abuse patient.[facility] HospitalIn the event this information is protected by the Federal Confidentiality of Alcohol and Drug Abuse Patient Records regulations: The Federal rules restrict any use of the information to criminally investigate or prosecute any alcohol or drug abuse patient.[facility] HospitalIn the event this information is protected by the Federal Confidentiality of Alcohol and Drug Abuse Patient Records regulations: The Federal rules restrict any use of the information to criminally investigate or prosecute any alcohol or drug abuse patient.[facility] HospitalIn the event this information is protected by the Federal Confidentiality of Alcohol and Drug Abuse Patient Records regulations: The Federal rules restrict any use of the information to criminally investigate or prosecute any alcohol or drug abuse patient.[facility] HospitalIn the event this information is protected by the Federal Confidentiality of Alcohol and Drug Abuse Patient Records regulations: The Federal rules restrict any use of the information to criminally investigate or prosecute any alcohol or drug abuse patient.[facility] HospitalIn the event this information is protected by the Federal Confidentiality of Alcohol and Drug Abuse Patient Records regulations: The Federal rules restrict any use of the information to criminally investigate or prosecute any alcohol or drug abuse patient.[facility] HospitalIn the event this information is protected by the Federal Confidentiality of Alcohol and Drug Abuse Patient Records regulations: The Federal rules restrict any use of the information to criminally investigate or prosecute any alcohol or drug abuse patient.[facility] HospitalIn the event this information is protected by the Federal Confidentiality of Alcohol and Drug Abuse Patient Records regulations: The Federal rules restrict any use of the information to criminally investigate or prosecute any alcohol or drug abuse patient.[facility] HospitalIn the event this information is protected by the Federal Confidentiality of Alcohol and Drug Abuse Patient Records regulations: The Federal rules restrict any use of the information to criminally investigate or prosecute any alcohol or drug abuse patient.[facility] HospitalIn the event this information is protected by the Federal Confidentiality of Alcohol and Drug Abuse Patient Records regulations: The Federal rules restrict any use of the information to criminally investigate or prosecute any alcohol or drug abuse patient.[facility] HospitalIn the event this information is protected by the Federal Confidentiality of Alcohol and Drug Abuse Patient Records regulations: The Federal rules restrict any use of the information to criminally investigate or prosecute any alcohol or drug abuse patient.[facility] HospitalIn the event this information is protected by the Federal Confidentiality of Alcohol and Drug Abuse Patient Records regulations: The Federal rules restrict any use of the information to criminally investigate or prosecute any alcohol or drug abuse patient.[facility] HospitalIn the event this information is protected by the Federal Confidentiality of Alcohol and Drug Abuse Patient Records regulations: The Federal rules restrict any use of the information to criminally investigate or prosecute any alcohol or drug abuse patient.[facility] HospitalIn the event this information is protected by the Federal Confidentiality of Alcohol and Drug Abuse Patient Records regulations: The Federal rules restrict any use of the information to criminally investigate or prosecute any alcohol or drug abuse patient.[facility] HospitalIn the event this information is protected by the Federal Confidentiality of Alcohol and Drug Abuse Patient Records regulations: The Federal rules restrict any use of the information to criminally investigate or prosecute any alcohol or drug abuse patient.[facility] HospitalIn the event this information is protected by the Federal Confidentiality of Alcohol and Drug Abuse Patient Records regulations: The Federal rules restrict any use of the information to criminally investigate or prosecute any alcohol or drug abuse patient.[facility] HospitalIn the event this information is protected by the Federal Confidentiality of Alcohol and Drug Abuse Patient Records regulations: The Federal rules restrict any use of the information to criminally investigate or prosecute any alcohol or drug abuse patient.[facility] HospitalIn the event this information is protected by the Federal Confidentiality of Alcohol and Drug Abuse Patient Records regulations: The Federal rules restrict any use of the information to criminally investigate or prosecute any alcohol or drug abuse patient.[facility] HospitalIn the event this information is protected by the Federal Confidentiality of Alcohol and Drug Abuse Patient Records regulations: The Federal rules restrict any use of the information to criminally investigate or prosecute any alcohol or drug abuse patient.[facility] HospitalIn the event this information is protected by the Federal Confidentiality of Alcohol and Drug Abuse Patient Records regulations: The Federal rules restrict any use of the information to criminally investigate or prosecute any alcohol or drug abuse patient.[facility] HospitalIn the event this information is protected by the Federal Confidentiality of Alcohol and Drug Abuse Patient Records regulations: The Federal rules restrict any use of the information to criminally investigate or prosecute any alcohol or drug abuse patient.[facility] HospitalIn the event this information is protected by the Federal Confidentiality of Alcohol and Drug Abuse Patient Records regulations: The Federal rules restrict any use of the information to criminally investigate or prosecute any alcohol or drug abuse patient.[facility] HospitalIn the event this information is protected by the Federal Confidentiality of Alcohol and Drug Abuse Patient Records regulations: The Federal rules restrict any use of the information to criminally investigate or prosecute any alcohol or drug abuse patient.[facility] HospitalIn the event this information is protected by the Federal Confidentiality of Alcohol and Drug Abuse Patient Records regulations: The Federal rules restrict any use of the information to criminally investigate or prosecute any alcohol or drug abuse patient.[facility] HospitalIn the event this information is protected by the Federal Confidentiality of Alcohol and Drug Abuse Patient Records regulations: The Federal rules restrict any use of the information to criminally investigate or prosecute any alcohol or drug abuse patient.[facility] HospitalIn the event this information is protected by the Federal Confidentiality of Alcohol and Drug Abuse Patient Records regulations: The Federal rules restrict any use of the information to criminally investigate or prosecute any alcohol or drug abuse patient.[facility] HospitalIn the event this information is protected by the Federal Confidentiality of Alcohol and Drug Abuse Patient Records regulations: The Federal rules restrict any use of the information to criminally investigate or prosecute any alcohol or drug abuse patient.[facility] HospitalIn the event this information is protected by the Federal Confidentiality of Alcohol and Drug Abuse Patient Records regulations: The Federal rules restrict any use of the information to criminally investigate or prosecute any alcohol or drug abuse patient.[facility] HospitalIn the event this information is protected by the Federal Confidentiality of Alcohol and Drug Abuse Patient Records regulations: The Federal rules restrict any use of the information to criminally investigate or prosecute any alcohol or drug abuse patient.[facility] HospitalIn the event this information is protected by the Federal Confidentiality of Alcohol and Drug Abuse Patient Records regulations: The Federal rules restrict any use of the information to criminally investigate or prosecute any alcohol or drug abuse patient.[facility] HospitalIn the event this information is protected by the Federal Confidentiality of Alcohol and Drug Abuse Patient Records regulations: The Federal rules restrict any use of the information to criminally investigate or prosecute any alcohol or drug abuse patient.[facility] HospitalIn the event this information is protected by the Federal Confidentiality of Alcohol and Drug Abuse Patient Records regulations: The Federal rules restrict any use of the information to criminally investigate or prosecute any alcohol or drug abuse patient.[facility] HospitalIn the event this information is protected by the Federal Confidentiality of Alcohol and Drug Abuse Patient Records regulations: The Federal rules restrict any use of the information to criminally investigate or prosecute any alcohol or drug abuse patient.[facility] HospitalIn the event this information is protected by the Federal Confidentiality of Alcohol and Drug Abuse Patient Records regulations: The Federal rules restrict any use of the information to criminally investigate or prosecute any alcohol or drug abuse patient.[facility] HospitalIn the event this information is protected by the Federal Confidentiality of Alcohol and Drug Abuse Patient Records regulations: The Federal rules restrict any use of the information to criminally investigate or prosecute any alcohol or drug abuse patient.[facility] HospitalIn the event this information is protected by the Federal Confidentiality of Alcohol and Drug Abuse Patient Records regulations: The Federal rules restrict any use of the information to criminally investigate or prosecute any alcohol or drug abuse patient.[facility] HospitalIn the event this information is protected by the Federal Confidentiality of Alcohol and Drug Abuse Patient Records regulations: The Federal rules restrict any use of the information to criminally investigate or prosecute any alcohol or drug abuse patient.[facility] HospitalIn the event this information is protected by the Federal Confidentiality of Alcohol and Drug Abuse Patient Records regulations: The Federal rules restrict any use of the information to criminally investigate or prosecute any alcohol or drug abuse patient.[facility] HospitalIn the event this information is protected by the Federal Confidentiality of Alcohol and Drug Abuse Patient Records regulations: The Federal rules restrict any use of the information to criminally investigate or prosecute any alcohol or drug abuse patient.[facility] HospitalIn the event this information is protected by the Federal Confidentiality of Alcohol and Drug Abuse Patient Records regulations: The Federal rules restrict any use of the information to criminally investigate or prosecute any alcohol or drug abuse patient.[facility] HospitalIn the event this information is protected by the Federal Confidentiality of Alcohol and Drug Abuse Patient Records regulations: The Federal rules restrict any use of the information to criminally investigate or prosecute any alcohol or drug abuse patient.[facility] HospitalIn the event this information is protected by the Federal Confidentiality of Alcohol and Drug Abuse Patient Records regulations: The Federal rules restrict any use of the information to criminally investigate or prosecute any alcohol or drug abuse patient.[facility] HospitalIn the event this information is protected by the Federal Confidentiality of Alcohol and Drug Abuse Patient Records regulations: The Federal rules restrict any use of the information to criminally investigate or prosecute any alcohol or drug abuse patient.[facility] HospitalIn the event this information is protected by the Federal Confidentiality of Alcohol and Drug Abuse Patient Records regulations: The Federal rules restrict any use of the information to criminally investigate or prosecute any alcohol or drug abuse patient.[facility] HospitalIn the event this information is protected by the Federal Confidentiality of Alcohol and Drug Abuse Patient Records regulations: The Federal rules restrict any use of the information to criminally investigate or prosecute any alcohol or drug abuse patient.[facility] HospitalIn the event this information is protected by the Federal Confidentiality of Alcohol and Drug Abuse Patient Records regulations: The Federal rules restrict any use of the information to criminally investigate or prosecute any alcohol or drug abuse patient.[facility] HospitalIn the event this information is protected by the Federal Confidentiality of Alcohol and Drug Abuse Patient Records regulations: The Federal rules restrict any use of the information to criminally investigate or prosecute any alcohol or drug abuse patient.[facility] HospitalIn the event this information is protected by the Federal Confidentiality of Alcohol and Drug Abuse Patient Records regulations: The Federal rules restrict any use of the information to criminally investigate or prosecute any alcohol or drug abuse patient.[facility] HospitalIn the event this information is protected by the Federal Confidentiality of Alcohol and Drug Abuse Patient Records regulations: The Federal rules restrict any use of the information to criminally investigate or prosecute any alcohol or drug abuse patient.[facility] HospitalIn the event this information is protected by the Federal Confidentiality of Alcohol and Drug Abuse Patient Records regulations: The Federal rules restrict any use of the information to criminally investigate or prosecute any alcohol or drug abuse patient.[facility] HospitalIn the event this information is protected by the Federal Confidentiality of Alcohol and Drug Abuse Patient Records regulations: The Federal rules restrict any use of the information to criminally investigate or prosecute any alcohol or drug abuse patient.[facility] HospitalIn the event this information is protected by the Federal Confidentiality of Alcohol and Drug Abuse Patient Records regulations: The Federal rules restrict any use of the information to criminally investigate or prosecute any alcohol or drug abuse patient.[facility] HospitalIn the event this information is protected by the Federal Confidentiality of Alcohol and Drug Abuse Patient Records regulations: The Federal rules restrict any use of the information to criminally investigate or prosecute any alcohol or drug abuse patient.[facility] HospitalIn the event this information is protected by the Federal Confidentiality of Alcohol and Drug Abuse Patient Records regulations: The Federal rules restrict any use of the information to criminally investigate or prosecute any alcohol or drug abuse patient.[facility] HospitalIn the event this information is protected by the Federal Confidentiality of Alcohol and Drug Abuse Patient Records regulations: The Federal rules restrict any use of the information to criminally investigate or prosecute any alcohol or drug abuse patient.[facility] HospitalIn the event this information is protected by the Federal Confidentiality of Alcohol and Drug Abuse Patient Records regulations: The Federal rules restrict any use of the information to criminally investigate or prosecute any alcohol or drug abuse patient.[facility] HospitalIn the event this information is protected by the Federal Confidentiality of Alcohol and Drug Abuse Patient Records regulations: The Federal rules restrict any use of the information to criminally investigate or prosecute any alcohol or drug abuse patient.[facility] HospitalIn the event this information is protected by the Federal Confidentiality of Alcohol and Drug Abuse Patient Records regulations: The Federal rules restrict any use of the information to criminally investigate or prosecute any alcohol or drug abuse patient.[facility] HospitalIn the event this information is protected by the Federal Confidentiality of Alcohol and Drug Abuse Patient Records regulations: The Federal rules restrict any use of the information to criminally investigate or prosecute any alcohol or drug abuse patient.[facility] HospitalIn the event this information is protected by the Federal Confidentiality of Alcohol and Drug Abuse Patient Records regulations: The Federal rules restrict any use of the information to criminally investigate or prosecute any alcohol or drug abuse patient.[facility] HospitalIn the event this information is protected by the Federal Confidentiality of Alcohol and Drug Abuse Patient Records regulations: The Federal rules restrict any use of the information to criminally investigate or prosecute any alcohol or drug abuse patient.[facility] HospitalIn the event this information is protected by the Federal Confidentiality of Alcohol and Drug Abuse Patient Records regulations: The Federal rules restrict any use of the information to criminally investigate or prosecute any alcohol or drug abuse patient.[facility] HospitalIn the event this information is protected by the Federal Confidentiality of Alcohol and Drug Abuse Patient Records regulations: The Federal rules restrict any use of the information to criminally investigate or prosecute any alcohol or drug abuse patient.[facility] HospitalIn the event this information is protected by the Federal Confidentiality of Alcohol and Drug Abuse Patient Records regulations: The Federal rules restrict any use of the information to criminally investigate or prosecute any alcohol or drug abuse patient.[facility] HospitalIn the event this information is protected by the Federal Confidentiality of Alcohol and Drug Abuse Patient Records regulations: The Federal rules restrict any use of the information to criminally investigate or prosecute any alcohol or drug abuse patient.[facility] HospitalIn the event this information is protected by the Federal Confidentiality of Alcohol and Drug Abuse Patient Records regulations: The Federal rules restrict any use of the information to criminally investigate or prosecute any alcohol or drug abuse patient.[facility] HospitalIn the event this information is protected by the Federal Confidentiality of Alcohol and Drug Abuse Patient Records regulations: The Federal rules restrict any use of the information to criminally investigate or prosecute any alcohol or drug abuse patient.[facility] HospitalIn the event this information is protected by the Federal Confidentiality of Alcohol and Drug Abuse Patient Records regulations: The Federal rules restrict any use of the information to criminally investigate or prosecute any alcohol or drug abuse patient.[facility] HospitalIn the event this information is protected by the Federal Confidentiality of Alcohol and Drug Abuse Patient Records regulations: The Federal rules restrict any use of the information to criminally investigate or prosecute any alcohol or drug abuse patient.[facility] HospitalIn the event this information is protected by the Federal Confidentiality of Alcohol and Drug Abuse Patient Records regulations: The Federal rules restrict any use of the information to criminally investigate or prosecute any alcohol or drug abuse patient.[facility] HospitalIn the event this information is protected by the Federal Confidentiality of Alcohol and Drug Abuse Patient Records regulations: The Federal rules restrict any use of the information to criminally investigate or prosecute any alcohol or drug abuse patient.[facility] HospitalIn the event this information is protected by the Federal Confidentiality of Alcohol and Drug Abuse Patient Records regulations: The Federal rules restrict any use of the information to criminally investigate or prosecute any alcohol or drug abuse patient.[facility] HospitalIn the event this information is protected by the Federal Confidentiality of Alcohol and Drug Abuse Patient Records regulations: The Federal rules restrict any use of the information to criminally investigate or prosecute any alcohol or drug abuse patient.[facility] HospitalIn the event this information is protected by the Federal Confidentiality of Alcohol and Drug Abuse Patient Records regulations: The Federal rules restrict any use of the information to criminally investigate or prosecute any alcohol or drug abuse patient.[facility] HospitalIn the event this information is protected by the Federal Confidentiality of Alcohol and Drug Abuse Patient Records regulations: The Federal rules restrict any use of the information to criminally investigate or prosecute any alcohol or drug abuse patient.[facility] HospitalIn the event this information is protected by the Federal Confidentiality of Alcohol and Drug Abuse Patient Records regulations: The Federal rules restrict any use of the information to criminally investigate or prosecute any alcohol or drug abuse patient.[facility] HospitalIn the event this information is protected by the Federal Confidentiality of Alcohol and Drug Abuse Patient Records regulations: The Federal rules restrict any use of the information to criminally investigate or prosecute any alcohol or drug abuse patient.[facility] HospitalIn the event this information is protected by the Federal Confidentiality of Alcohol and Drug Abuse Patient Records regulations: The Federal rules restrict any use of the information to criminally investigate or prosecute any alcohol or drug abuse patient.[facility] HospitalIn the event this information is protected by the Federal Confidentiality of Alcohol and Drug Abuse Patient Records regulations: The Federal rules restrict any use of the information to criminally investigate or prosecute any alcohol or drug abuse patient.[facility] HospitalIn the event this information is protected by the Federal Confidentiality of Alcohol and Drug Abuse Patient Records regulations: The Federal rules restrict any use of the information to criminally investigate or prosecute any alcohol or drug abuse patient.[facility] HospitalIn the event this information is protected by the Federal Confidentiality of Alcohol and Drug Abuse Patient Records regulations: The Federal rules restrict any use of the information to criminally investigate or prosecute any alcohol or drug abuse patient.[facility] HospitalIn the event this information is protected by the Federal Confidentiality of Alcohol and Drug Abuse Patient Records regulations: The Federal rules restrict any use of the information to criminally investigate or prosecute any alcohol or drug abuse patient.[facility] HospitalIn the event this information is protected by the Federal Confidentiality of Alcohol and Drug Abuse Patient Records regulations: The Federal rules restrict any use of the information to criminally investigate or prosecute any alcohol or drug abuse patient.[facility] HospitalIn the event this information is protected by the Federal Confidentiality of Alcohol and Drug Abuse Patient Records regulations: The Federal rules restrict any use of the information to criminally investigate or prosecute any alcohol or drug abuse patient.[facility] HospitalIn the event this information is protected by the Federal Confidentiality of Alcohol and Drug Abuse Patient Records regulations: The Federal rules restrict any use of the information to criminally investigate or prosecute any alcohol or drug abuse patient.[facility] HospitalIn the event this information is protected by the Federal Confidentiality of Alcohol and Drug Abuse Patient Records regulations: The Federal rules restrict any use of the information to criminally investigate or prosecute any alcohol or drug abuse patient.[facility] HospitalIn the event this information is protected by the Federal Confidentiality of Alcohol and Drug Abuse Patient Records regulations: The Federal rules restrict any use of the information to criminally investigate or prosecute any alcohol or drug abuse patient.[facility] HospitalIn the event this information is protected by the Federal Confidentiality of Alcohol and Drug Abuse Patient Records regulations: The Federal rules restrict any use of the information to criminally investigate or prosecute any alcohol or drug abuse patient.[facility] HospitalIn the event this information is protected by the Federal Confidentiality of Alcohol and Drug Abuse Patient Records regulations: The Federal rules restrict any use of the information to criminally investigate or prosecute any alcohol or drug abuse patient.[facility] HospitalIn the event this information is protected by the Federal Confidentiality of Alcohol and Drug Abuse Patient Records regulations: The Federal rules restrict any use of the information to criminally investigate or prosecute any alcohol or drug abuse patient.[facility] HospitalIn the event this information is protected by the Federal Confidentiality of Alcohol and Drug Abuse Patient Records regulations: The Federal rules restrict any use of the information to criminally investigate or prosecute any alcohol or drug abuse patient.[facility] HospitalIn the event this information is protected by the Federal Confidentiality of Alcohol and Drug Abuse Patient Records regulations: The Federal rules restrict any use of the information to criminally investigate or prosecute any alcohol or drug abuse patient.[facility] HospitalIn the event this information is protected by the Federal Confidentiality of Alcohol and Drug Abuse Patient Records regulations: The Federal rules restrict any use of the information to criminally investigate or prosecute any alcohol or drug abuse patient.[facility] HospitalIn the event this information is protected by the Federal Confidentiality of Alcohol and Drug Abuse Patient Records regulations: The Federal rules restrict any use of the information to criminally investigate or prosecute any alcohol or drug abuse patient.[facility] HospitalIn the event this information is protected by the Federal Confidentiality of Alcohol and Drug Abuse Patient Records regulations: The Federal rules restrict any use of the information to criminally investigate or prosecute any alcohol or drug abuse patient.[facility] HospitalIn the event this information is protected by the Federal Confidentiality of Alcohol and Drug Abuse Patient Records regulations: The Federal rules restrict any use of the information to criminally investigate or prosecute any alcohol or drug abuse patient.[facility] HospitalIn the event this information is protected by the Federal Confidentiality of Alcohol and Drug Abuse Patient Records regulations: The Federal rules restrict any use of the information to criminally investigate or prosecute any alcohol or drug abuse patient.[facility] HospitalIn the event this information is protected by the Federal Confidentiality of Alcohol and Drug Abuse Patient Records regulations: The Federal rules restrict any use of the information to criminally investigate or prosecute any alcohol or drug abuse patient.[facility] HospitalIn the event this information is protected by the Federal Confidentiality of Alcohol and Drug Abuse Patient Records regulations: The Federal rules restrict any use of the information to criminally investigate or prosecute any alcohol or drug abuse patient.[facility] HospitalIn the event this information is protected by the Federal Confidentiality of Alcohol and Drug Abuse Patient Records regulations: The Federal rules restrict any use of the information to criminally investigate or prosecute any alcohol or drug abuse patient.[facility] HospitalIn the event this information is protected by the Federal Confidentiality of Alcohol and Drug Abuse Patient Records regulations: The Federal rules restrict any use of the information to criminally investigate or prosecute any alcohol or drug abuse patient.[facility] HospitalIn the event this information is protected by the Federal Confidentiality of Alcohol and Drug Abuse Patient Records regulations: The Federal rules restrict any use of the information to criminally investigate or prosecute any alcohol or drug abuse patient.[facility] HospitalIn the event this information is protected by the Federal Confidentiality of Alcohol and Drug Abuse Patient Records regulations: The Federal rules restrict any use of the information to criminally investigate or prosecute any alcohol or drug abuse patient.[facility] HospitalIn the event this information is protected by the Federal Confidentiality of Alcohol and Drug Abuse Patient Records regulations: The Federal rules restrict any use of the information to criminally investigate or prosecute any alcohol or drug abuse patient.[facility] HospitalIn the event this information is protected by the Federal Confidentiality of Alcohol and Drug Abuse Patient Records regulations: The Federal rules restrict any use of the information to criminally investigate or prosecute any alcohol or drug abuse patient.[facility] HospitalIn the event this information is protected by the Federal Confidentiality of Alcohol and Drug Abuse Patient Records regulations: The Federal rules restrict any use of the information to criminally investigate or prosecute any alcohol or drug abuse patient.[facility] HospitalIn the event this information is protected by the Federal Confidentiality of Alcohol and Drug Abuse Patient Records regulations: The Federal rules restrict any use of the information to criminally investigate or prosecute any alcohol or drug abuse patient.[facility] HospitalIn the event this information is protected by the Federal Confidentiality of Alcohol and Drug Abuse Patient Records regulations: The Federal rules restrict any use of the information to criminally investigate or prosecute any alcohol or drug abuse patient.[facility] HospitalIn the event this information is protected by the Federal Confidentiality of Alcohol and Drug Abuse Patient Records regulations: The Federal rules restrict any use of the information to criminally investigate or prosecute any alcohol or drug abuse patient.[facility] HospitalIn the event this information is protected by the Federal Confidentiality of Alcohol and Drug Abuse Patient Records regulations: The Federal rules restrict any use of the information to criminally investigate or prosecute any alcohol or drug abuse patient.[facility] HospitalIn the event this information is protected by the Federal Confidentiality of Alcohol and Drug Abuse Patient Records regulations: The Federal rules restrict any use of the information to criminally investigate or prosecute any alcohol or drug abuse patient.[facility] HospitalIn the event this information is protected by the Federal Confidentiality of Alcohol and Drug Abuse Patient Records regulations: The Federal rules restrict any use of the information to criminally investigate or prosecute any alcohol or drug abuse patient.[facility] HospitalIn the event this information is protected by the Federal Confidentiality of Alcohol and Drug Abuse Patient Records regulations: The Federal rules restrict any use of the information to criminally investigate or prosecute any alcohol or drug abuse patient.[facility] HospitalIn the event this information is protected by the Federal Confidentiality of Alcohol and Drug Abuse Patient Records regulations: The Federal rules restrict any use of the information to criminally investigate or prosecute any alcohol or drug abuse patient.[facility] HospitalIn the event this information is protected by the Federal Confidentiality of Alcohol and Drug Abuse Patient Records regulations: The Federal rules restrict any use of the information to criminally investigate or prosecute any alcohol or drug abuse patient.[facility] HospitalIn the event this information is protected by the Federal Confidentiality of Alcohol and Drug Abuse Patient Records regulations: The Federal rules restrict any use of the information to criminally investigate or prosecute any alcohol or drug abuse patient.[facility] HospitalIn the event this information is protected by the Federal Confidentiality of Alcohol and Drug Abuse Patient Records regulations: The Federal rules restrict any use of the information to criminally investigate or prosecute any alcohol or drug abuse patient.[facility] HospitalIn the event this information is protected by the Federal Confidentiality of Alcohol and Drug Abuse Patient Records regulations: The Federal rules restrict any use of the information to criminally investigate or prosecute any alcohol or drug abuse patient.[facility] HospitalIn the event this information is protected by the Federal Confidentiality of Alcohol and Drug Abuse Patient Records regulations: The Federal rules restrict any use of the information to criminally investigate or prosecute any alcohol or drug abuse patient.[facility] HospitalIn the event this information is protected by the Federal Confidentiality of Alcohol and Drug Abuse Patient Records regulations: The Federal rules restrict any use of the information to criminally investigate or prosecute any alcohol or drug abuse patient.[facility] HospitalIn the event this information is protected by the Federal Confidentiality of Alcohol and Drug Abuse Patient Records regulations: The Federal rules restrict any use of the information to criminally investigate or prosecute any alcohol or drug abuse patient.[facility] HospitalIn the event this information is protected by the Federal Confidentiality of Alcohol and Drug Abuse Patient Records regulations: The Federal rules restrict any use of the information to criminally investigate or prosecute any alcohol or drug abuse patient.[facility] HospitalIn the event this information is protected by the Federal Confidentiality of Alcohol and Drug Abuse Patient Records regulations: The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 Expiration Date Visits Re quested Visits Authorized [id number] Closed 11/17/2021 11/16/2022 1 1 Referral ID Status Reason Start Date Expiration Date Visits Re quested Visits Authorized [id number] Closed 06/06/2022 09/04/2022 2 2 Reason Comments Diarrhea x 3 days, after eati ng a salad Reason Comments Appointment Reason Comments Established Patient Specialty Diagnoses / Procedures Referred By Contac t Referred To Contact Neurosurgery / NEUROSURGERY Diagnoses f/u after mri, xrays, scoli films Procedures OFFICE/OUTPATIENT ESTABLISHED MOD MDM 30-39 MIN EST PATIENT Ashley Hugo I, MD [address] [place] [address] Ashley Hugo I, MD [address] [place] [address] Referral ID Status Reason Start Date Expiration Date Visits Re quested Visits Authorized [id number] Closed 11/17/2021 11/16/2022 1 1 Reason Onset Date Comments Refill Request 06/25/2022 Reason Comments multiple issues Specialty Diagnoses / Procedures Referred By Contac t Referred To Contact FAMILY MEDICINE Diagnoses Raised bumps on back of mouth Procedures MYC OFFICE VISIT Self, MD Pulido, Pedro Hathaway MD [address] [place] [address] Referral ID Status Reason Start Date Expiration Date V isits Requested Visits Authorized [id number] Closed Financial Clearance Required - O[employer] Payor 06/26/2022 11/16/2022 1 1 Specialty Diagnoses / Procedures Referred By Contac t Referred To Contact Pain Management / PAIN MANAGEMENT Diagnoses Primary osteoarthritis, right shoulder Right shoulder joint (glenohumeral) injection under fluoroscopic guidance Procedures ARTHROCENTESIS ASPIR&/INJ MAJOR JT/BURSA W/O US PROCEDURE 20 Jese Mejia MD [address] [address] Jese Mejia MD [address] [place] [address] Referral ID Status Reason Start Date Expiration Date Visits Re quested Visits Authorized [id number] Closed 11/17/2021 11/16/2022 1 1 Reason Comments Follow Up Shoulder injection Pain (Shoulder Pain) Reason Comments Patient Question Testing Reason Onset Date Comments Refill Request 07/17/2022 Reason Comments Received Outside Medical Records Reason Comments New Patient Reason Comments Follow Up Reason Onset Date Comments Refill Request 09/02/2022 Reason Comments Established Patient Pain Specialty Diagnoses / Procedures Referred By Contac t Referred To Contact Podiatry Diagnoses Foot pain, left Procedures CONSULT TO PODIATRY OFFICE/OUTPATIENT NEW HIGH MDM 60-74 MINUTES Olvin Richard PA-C [address] [place] [address] Referral ID Status Reason Start Date Expiration Date V isits Requested Visits Authorized [id number] Closed PCP Requested Referral 10/01/2022 10/01/2023 1 1 Reason Comments Medication Problem Reason Comments Results 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 Specialty Diagnoses / Procedures Referred By Contac t Referred To Contact Gynecology Diagnoses Well woman exam Procedures CONSULT TO GYNECOLOGY OFFICE/OUTPATIENT [facility] 60-74 MINUTES Olvin Richard PA-C [address] [place] [address] Referral ID Status Reason Start Date Expiration Date V isits Requested Visits Authorized [id number] Closed PCP Requested Referral Auto-Generated Referral 10/01/2022 10/01/2023 1 1 Reason Comments Joint Pain Specialty Diagnoses / Procedures Referred By Contac t Referred To Contact Rheumatology Diagnoses Elevated rheumatoid factor Procedures CONSULT TO RHEUM/IMMUN DISEASE OFFICE/OUTPATIENT [facility] 60-74 MINUTES Olvin Richard PA-C [address] [place] [address] Referral ID Status Reason Start Date Expiration Date V isits Requested Visits Authorized [id number] Closed PCP Requested Referral 10/02/2022 10/02/2023 1 1 Reason Comments Established Patient Headache Cervicalgia Reason Comments [facility] Reason Comments Medication Problem Patient Question Reason Comments Patient Question Reason Comments GERD Irritable Bowel Syndrome Specialty Diagnoses / Procedures Referred By Contac t Referred To Contact Gastroenterology Diagnoses GERD without esophagitis Irritable bowel syndrome with constipation Gastroesophageal reflux disease with esophagitis without hemorrhage Procedures CONSULT TO GASTROENTEROLOGY OFFICE/OUTPATIENT [facility] 60-74 MINUTES Olvin Richard PA-C [address] [place] [address] Referral ID Status Reason Start Date Expiration Date V isits Requested Visits Authorized [id number] Closed PCP Requested Referral 10/01/2022 10/01/2023 1 1 Reason Comments Follow Up Pain Reason Comments Obesity Reason Comments Cough Chest congestion, RDZ , fatigue, bodyaches x4 days Reason Comments Follow Up Dx'd with a UTI at [facility] ED. Pt states she feels much better, no sx remain. Reason Comments F/U 1 month Reason Onset Date Comments Refill Request 12/08/2022 Reason Comments Follow Up Rx Refills Neck Pain Reason Comments Orders Reason Comments Nausea & Vomiting Specialty Diagnoses / Procedures Referred By Contac t Referred To Contact CT IMAGING Diagnoses Nausea and vomiting, unspecified vomiting type Generalized abdominal pain Nausea Procedures CT ABD/PEL W IVCON CT ABD & PELVIS W/CONTRAST Lizz Riggs PA-C [id number] [place] [address] Ct Imaging Referral ID Status Reason Start Date Expiration Date V isits Requested Visits Authorized [id number] Closed Auto-Generate d Referral 12/26/2022 01/25/2024 1 1 Reason Onset Date Comments Refill Request 12/28/2022 Reason Comments Patient Update Reason Comments New Patient Evaluation Reason Comments Appointment EGD/Ozuna/Mano Reason Comments Boost PA Reason Comments Nutrition Counseling Abnormal weight los s Specialty Diagnoses / Procedures Referred By Ana t Referred To Contact Nutrition Diagnoses Abnormal weight loss Procedures CONSULT TO NUTRITION THERAPY MEDICAL NUTRITION ASSMT&IVNTJ INDIV EACH 15 DC MEDICAL NUTRITION ASSMT&IVNTJ INDIV EACH 15 DC MEDICAL NUTRITION ASSMT&IVNTJ INDIV EACH 15 DC MEDICAL NUTRITION ASSMT&IVNTJ INDIV EACH 15 DC Lizz Riggs PA-C [address] [place] [address] Referral ID Status Reason Start Date Expiration Date V isits Requested Visits Authorized [id number] Closed PCP Requested Referral 01/13/2023 01/13/2024 1 1 Reason Comments Chronic Migraine Cervicalgia Reason Comments Positive REBA Reason Onset Date Comments Refill Request 02/04/2023 Reason Onset Date Comments Refill Request 02/05/2023 Specialty Diagnoses / Procedures Referred By Ana t Referred To Contact Diagnoses Gastroesophageal reflux disease with esophagitis without hemorrhage Procedures ESOPHAGEAL MOTILITY STUDY W/INTERP&RPT ESOPHAGEAL MANOMETRY [facility] [address] [place] [place] [address] Referral ID Status Reason Start Date Expiration Date Visits Re quested Visits Authorized [id number] 1 Reason Comments Medical Clearance Reason Comments Follow Up Neck Pain Reason Comments Appointment 06/12/23 Reason Comments Follow Up Knee Pain Last seen 10/25/21 S/P Left TKA (10/18/20) Reason Comments Constipation Reason Comments Returning Patient's Call Reason Onset Date Comments Refill Request 05/24/2023 Reason Comments Post Op Follow Up Reason Comments Hair/Scalp Problem Patient has been hav ing hair loss, fatigue and weakness x 1 month Reason Comments Joint Pain Reason Onset Date Comments Refill Request 06/15/2023 Reason Comments Fatigue Specialty Diagnoses / Procedures Referred By Contac t Referred To Contact Neurology / SLEEP DISORDERS Diagnoses Primary insomnia PSG Procedures POLYSOM 6/>YRS SLEEP 4/> ADDL EMELIA ATTND PSG SIMPLE Charmaine Coreas MD [address] [facility] [address] [place] [address] [facility] [address] [place] [address] Referral ID Status Reason Start Date Expiration Date Visits Re quested Visits Authorized [id number] Closed 11/17/2022 11/16/2023 1 1 Reason Onset Date Comments ACM TAMIKO RN 07/03/2023 Medication Ad herence Reason Comments New Patient LCS Reason Onset Date Comments Refill Request 07/10/2023 Reason Onset Date Comments Refill Request 07/11/2023 Reason Comments ext document Reason Comments Sinus Problem Sinus pain and press ure x 2 weeks Reason Comments New Patient Pt reported fatigue, balance issues, unsteady, last fall x8 mths prior. Specialty Diagnoses / Procedures Referred By Ana t Referred To Contact Neurology Diagnoses Fatigue, unspecified type Generalized weakness Balance problems Procedures CONSULT TO NEUROLOGY OFFICE/OUTPATIENT NEW HIGH MDM 60-74 MINUTES Kyle Sylvester MD [address] [place] [address] Referral ID Status Reason Start Date Expiration Date Visits Requested Visits Authorized [id number] Pending Review PCP Requested Referral 06/17/2023 06/16/2024 1 1 Reason Onset Date Comments Refill Request 09/01/2023 Reason Comments Neck Pain Follow Up Reason Onset Date Comments Refill Request 09/10/2023 Reason Comments Hematuria Painful urination, p ain in back and bladder x 2 days Reason Comments Radiology US Specialty Diagnoses / Procedures Referred By Ana t Referred To Contact US IMAGING Diagnoses Nausea and vomiting, unspecified vomiting type Procedures US ABD RT UPPER QUADRANT US ABDOMINAL REAL TIME W/IMAGE LIMITED Lizz Riggs PA-C [address] [place] [address] Us Imaging [id number] Referral ID Status Reason Start Date Expiration Date V isits Requested Visits Authorized [id number] Closed Auto-Generate d Referral 10/28/2022 11/27/2023 1 1 Specialty Diagnoses / Procedures Referred By Ana roman Referred To Contact CT IMAGING Diagnoses Encounter for screening for lung cancer Former tobacco use Procedures CT LUNG SCREEN WO IVCON COMPUTED TOMOGRAPHY THORAX LW DOSE LNG CA SCR Charan- Coral Marino, CARE PROGRAM RESIDENT.DATABASE SECURITY EXPERT [address] [place] [id number] Imaging [place] [address] Referral ID Status Reason Start Date Expiration Date V isits Requested Visits Authorized [id number] Closed Auto-Generate d Referral 07/08/2023 11/16/2023 1 1 Reason Onset Date Comments Refill Request 09/29/2023 Reason Comments Medicare Wellness Exam Reason Comments Upper Respiratory Infection Reason Comments bladder spasms and pressure Started last night Reason Comments Knee Pain S/P Left TKA 10/18/20 Established Patient S/P Left TKA 10/18/20 Last seen 03/03/23 with BP left knee pain Reason Comments Established Patient Established NI Patie nt Reason Comments Cough Chest congestion x3 weeks Reason Comments Sleep Apnea Care Teams (unrecognized sec tion and content) Wire Welder Relationship Specialty Start Date End Date Kyle Sylvester MD [address] [place] [address] PCP - General Family Practice 02/20/15 Wire Welder Relationship Specialty Start Date End Date Kyle Sylvester MD [address] [place] [address] PCP - General Family Practice 02/20/15 Wire Welder Relationship Specialty Start Date End Date Kyle Sylvester MD [address] [place], [place] 396[address] [phone] PCP - General Family Practice 02/20/15 Wire Welder Relationship Specialty Start Date End Date Kyle Sylvester MD [address] [place], [place] [id number] [phone] PCP - General Family Practice 02/20/15 Wire Welder Relationship Specialty Start Date End Date Kyle Sylvester MD [address] [place] [address] PCP - General Family Practice 02/20/15 Wire Welder Relationship Specialty Start Date End Date Kyle Sylvester MD [facility] [place] [address] PCP - General Family Practice 02/20/15 Wire Welder Relationship Specialty Start Date End Date Kyle Sylvester MD [address] [place] [address], [place] [address] PCP - General Family Practice 02/20/15 Wire Welder Relationship Specialty Start Date End Date Kyle Sylvester MD [address] [place] [address], [place] [address] PCP - General Family Practice 02/20/15 Wire Welder Relationship Specialty Start Date End Date Kyle Sylvester MD [address] [place] [address], [place] [address] PCP - General Family Practice 02/20/15 Wire Welder Relationship Specialty Start Date End Date Kyle Sylvester MD [address] [place] [address], [place] [address] PCP - General Family Practice 02/20/15 Wire Welder Relationship Specialty Start Date End Date Kyle Sylvester MD [address] [place] [address], [place] [address] PCP - General Family Practice 02/20/15 Wire Welder Relationship Specialty Start Date End Date Kyle Sylvester MD [address] [place] [address], [place] [address] PCP - General Family Practice 02/20/15 Wire Welder Relationship Specialty Start Date End Date Kyle Sylvester MD [address] [place] [address], [place] [address] PCP - General Family Practice 02/20/15 Wire Welder Relationship Specialty Start Date End Date Kyle Sylvester MD [facility] [place] [address] PCP - General Family Practice 02/20/15 Wire Welder Relationship Specialty Start Date End Date Kyle Sylvester MD [facility] [place] [address] PCP - General Family Practice 02/20/15 Wire Welder Relationship Specialty Start Date End Date Kyle Sylvester MD [address] [place] [address], [place] [address] PCP - General Family Practice 02/20/15 Wire Welder Relationship Specialty Start Date End Date Kyle Sylvester MD [address] [place] [address], [place] [address] PCP - General Family Practice 02/20/15 Wire Welder Relationship Specialty Start Date End Date Kyle Sylvester MD [address] [place] [address], [place] [address] PCP - General Family Practice 02/20/15 Wire Welder Relationship Specialty Start Date End Date yKle Sylvester MD [address] [place] [address], [place] [address] PCP - General Family Practice 02/20/15 Wire Welder Relationship Specialty Start Date End Date Kyle Sylvester MD [address] [place] [address], [place] [address] PCP - General Family Practice 02/20/15 Wire Welder Relationship Specialty Start Date End Date Kyle Sylvester MD [address] [place] [address], [place] [address] PCP - General Family Practice 02/20/15 Wire Welder Relationship Specialty Start Date End Date Kyle Sylvester MD [address] [place] [address], [place] [address] PCP - General Family Practice 02/20/15 Wire Welder Relationship Specialty Start Date End Date Kyle Sylvester MD [address] [place] [address], [place] [address] PCP - General Family Practice 02/20/15 Wire Welder Relationship Specialty Start Date End Date Kyle Sylvester MD [address] [place] [address], [place] [address] PCP - General Family Practice 02/20/15 Wire Welder Relationship Specialty Start Date End Date Kyle Sylvester MD [address] [place] [address], [place] [address] PCP - General Family Practice 02/20/15 Wire Welder Relationship Specialty Start Date End Date Kyle Sylvester MD [address] [place] [address], [place] [address] PCP - General Family Practice 02/20/15 Wire Welder Relationship Specialty Start Date End Date Kyle Sylvester MD [address] [place] [address], [place] [address] PCP - General Family Practice 02/20/15 Wire Welder Relationship Specialty Start Date End Date Kyle Sylvester MD [address] [place] [address] [place] [address] PCP - General Family Practice 02/20/15 Wire Welder Relationship Specialty Start Date End Date Kyle Sylvester MD [address] [place] [address], [place] [address] PCP - General Family Practice 02/20/15 Wire Welder Relationship Specialty Start Date End Date Kyle Sylvester MD [address] [place] [address], [place] [address] PCP - General Family Practice 02/20/15 Wire Welder Relationship Specialty Start Date End Date Kyle Sylvester MD [address] [place] [address] PCP - General Family Practice 02/20/15 Wire Welder Relationship Specialty Start Date End Date Kyle Sylvester MD [facility] [place] [address] PCP - General Family Practice 02/20/15 Wire Welder Relationship Specialty Start Date End Date Kyle Sylvester MD [facility] [place] [address] PCP - General Family Practice 02/20/15 Wire Welder Relationship Specialty Start Date End Date Kyle Sylvester MD [address] [place] [address], [place] [address] PCP - General Family Practice 02/20/15 Wire Welder Relationship Specialty Start Date End Date Kyle Sylvester MD [address] [place] [address] [place] [address] PCP - General Family Practice 02/20/15 Wire Welder Relationship Specialty Start Date End Date Kyle Sylvester MD [address] [place] [address] [place] [address] PCP - General Family Practice 02/20/15 Wire Welder Relationship Specialty Start Date End Date Kyle Sylvester MD [facility] [place] [address] PCP - General Family Practice 02/20/15 Wire Welder Relationship Specialty Start Date End Date Kyle Sylvester MD [address] [place] [address] [place] [address] PCP - General Family Practice 02/20/15 Wire Welder Relationship Specialty Start Date End Date Kyle Sylvester MD [address] [place] [address] [place] [address] PCP - General Family Practice 02/20/15 Wire Welder Relationship Specialty Start Date End Date Kyle Sylvester MD [address] [place] [address] PCP - General Family Medicine 02/20/15 Wire Welder Relationship Specialty Start Date End Date Kyle Sylvester MD [address] [place] [address] PCP - General Family Medicine 02/20/15 Wire Welder Relationship Specialty Start Date End Date Kyle Sylvester MD [address] [place] [address] PCP - General Family Medicine 02/20/15 Wire Welder Relationship Specialty Start Date End Date Kyle Sylvester MD [facility] [place] [address] PCP - General Family Medicine 02/20/15 Wire Welder Relationship Specialty Start Date End Date Kyle Sylvester MD [facility] [place] [address] PCP - General Family Medicine 02/20/15 Wire Welder Relationship Specialty Start Date End Date Kyle Sylvester MD [facility] [place] [address] PCP - General Family Medicine 02/20/15 Wire Welder Relationship Specialty Start Date End Date Kyle Sylvester MD [facility] [place] [address] PCP - General Family Medicine 02/20/15 Wire Welder Relationship Specialty Start Date End Date Kyle Sylvester MD [facility] [place] [address] PCP - General Family Medicine 02/20/15 Wire Welder Relationship Specialty Start Date End Date Kyle Sylvester MD [facility] [place] [address] PCP - General Family Medicine 02/20/15 Wire Welder Relationship Specialty Start Date End Date Kyle Sylvester MD [address] [place] [address] PCP - General Family Medicine 02/20/15 Wire Welder Relationship Specialty Start Date End Date Kyle Sylvester MD [facility] [place] [address] PCP - General Family Medicine 02/20/15 Wire Welder Relationship Specialty Start Date End Date Kyle Sylvester MD [address] [place] [address], [place] [address] PCP - General Family Medicine 02/20/15 Wire Welder Relationship Specialty Start Date End Date Kyle Sylvester MD [address] [place] [address], [place] [address] PCP - General Family Medicine 02/20/15 Wire Welder Relationship Specialty Start Date End Date Kyle Sylvester MD [address] [place] [address], [place] [address] PCP - General Family Medicine 02/20/15 Wire Welder Relationship Specialty Start Date End Date Kyle Sylvester MD [address] [place] [address], [place] [address] PCP - General Family Medicine 02/20/15 Wire Welder Relationship Specialty Start Date End Date Kyle Sylvester MD [facility] [place] [address] PCP - General Family Medicine 02/20/15 Wire Welder Relationship Specialty Start Date End Date Kyle Sylvester MD [address] [place] [address], [place] [address] PCP - General Family Medicine 02/20/15 Wire Welder Relationship Specialty Start Date End Date Kyle Sylvester MD [address] [place] [address], [place] [address] PCP - General Family Medicine 02/20/15 Wire Welder Relationship Specialty Start Date End Date Kyle Sylvester MD [address] [place] [address] PCP - General Family Medicine 02/20/15 Wire Welder Relationship Specialty Start Date End Date Kyle Sylvester MD [facility] [place] [address] PCP - General Family Medicine 02/20/15 Wire Welder Relationship Specialty Start Date End Date Kyle Sylvester MD [address] [place] [address], [place] [address] PCP - General Family Medicine 02/20/15 Wire Welder Relationship Specialty Start Date End Date Kyle Sylvester MD [address] [place] [address], [place] [address] PCP - General Family Medicine 02/20/15 Wire Welder Relationship Specialty Start Date End Date Kyle Sylvester MD [facility] [place] [address] PCP - General Family Medicine 02/20/15 Wire Welder Relationship Specialty Start Date End Date Kyle Sylvester MD [address] [place] [address], [place] [address] PCP - General Family Medicine 02/20/15 Wire Welder Relationship Specialty Start Date End Date Kyle Sylvester MD [address] [place] [address], [place] [address] PCP - General Family Medicine 02/20/15 Wire Welder Relationship Specialty Start Date End Date Kyle Sylvester MD [address] [place] [address], [place] [address] PCP - General Family Medicine 02/20/15 Wire Welder Relationship Specialty Start Date End Date Kyle Sylvester MD [address] [place] [address], [place] [address] PCP - General Family Medicine 02/20/15 Wire Welder Relationship Specialty Start Date End Date Kyle Sylvester MD [facility] [place] [address] PCP - General Family Medicine 02/20/15 Wire Welder Relationship Specialty Start Date End Date Kyle Sylvester MD [address] [place] [address], [place] [address] PCP - General Family Medicine 02/20/15 Wire Welder Relationship Specialty Start Date End Date Kyle Sylvester MD [address] [place] [address], [place] [address] PCP - General Family Medicine 02/20/15 Wire Welder Relationship Specialty Start Date End Date Kyle Sylvester MD [address] [place] [address], [place] [address] PCP - General Family Medicine 02/20/15 Wire Welder Relationship Specialty Start Date End Date Kyle Sylvester MD [address] [place] [address], [place] [address] PCP - General Family Medicine 02/20/15 Wire Welder Relationship Specialty Start Date End Date Kyle Sylvester MD [address] [place] [address] [place] [address] PCP - General Family Medicine 02/20/15 Wire Welder Relationship Specialty Start Date End Date Kyle Sylvester MD [address] [place] [address], [place] [address] PCP - General Family Medicine 02/20/15 Wire Welder Relationship Specialty Start Date End Date Kyle Sylvester MD [address] [place] [address], [place] [address] PCP - General Family Medicine 02/20/15 Wire Welder Relationship Specialty Start Date End Date Kyle Sylvester MD [address] [place] [address] PCP - General Family Medicine 02/20/15 Wire Welder Relationship Specialty Start Date End Date Kyle Sylvester MD [address] [place] [address] PCP - General Family Medicine 02/20/15 Wire Welder Relationship Specialty Start Date End Date Kyle Sylvester MD [address] [place] [address] PCP - General Family Medicine 02/20/15 Wire Welder Relationship Specialty Start Date End Date Kyle Sylvester MD [address] [place] [address] PCP - General Family Medicine 02/20/15 Abel Domínguez MD [address] [facility] [address] [place] [address] General Surgery 04/30/23 04/30/23 Wire Welder Relationship Specialty Start Date End Date Kyle Sylvester MD [address] [place] [address] PCP - General Family Medicine 02/20/15 Abel Domínguez MD [address] [facility] [address] [place] [address] General Surgery 04/30/23 04/30/23 Wire Welder Relationship Specialty Start Date End Date Kyle Sylvester MD [address] [place] [address] PCP - General Family Medicine 02/20/15 Wire Welder Relationship Specialty Start Date End Date Kyle Sylvester MD [address] [place] [address] PCP - General Family Medicine 02/20/15 Wire Welder Relationship Specialty Start Date End Date Kyle Sylvester MD [address] [place] [address] PCP - General Family Medicine 02/20/15 Wire Welder Relationship Specialty Start Date End Date Kyle Sylvester MD [address] [place] [address] PCP - General Family Medicine 02/20/15 Wire Welder Relationship Specialty Start Date End Date Kyle Sylvester MD [address] [place] [address] PCP - General Family Medicine 02/20/15 Wire Welder Relationship Specialty Start Date End Date Kyle Sylvester MD [address] [place] [address] PCP - General Family Medicine 02/20/15 Wire Welder Relationship Specialty Start Date End Date Kyle Sylvester MD [address] [place] [address] PCP - General Family Medicine 02/20/15 Wire Welder Relationship Specialty Start Date End Date Kyle Sylvester MD [address] [place] [address] PCP - General Family Medicine 02/20/15 Wire Welder Relationship Specialty Start Date End Date Kyle Sylvester MD [address] [place] [address] PCP - General Family Medicine 02/20/15 Wire Welder Relationship Specialty Start Date End Date Kyle Sylvester MD [address] [place] [address] PCP - General Family Medicine 02/20/15 Wire Welder Relationship Specialty Start Date End Date Kyle Sylvester MD [address] [place] [address] PCP - General Family Medicine 02/20/15 Wire Welder Relationship Specialty Start Date End Date Kyle Sylvester MD [address] [place] [address] PCP - General Family Medicine 02/20/15 Wire Welder Relationship Specialty Start Date End Date Kyle Sylvester MD [address] [place] [address] PCP - General Family Medicine 02/20/15 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 Relationship 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 Start Date End Date Kyle Sylvester MD [address] [place] [address] PCP - General Family Medicine 02/20/15 Wire 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 Relationship Specialty Start Date End Date Kyle Sylvester MD [address] [place] [address] PCP - General Family Medicine 02/20/15 Wire 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 Relationship Specialty Start Date End Date Kyle Sylvester MD [address] [place] [address] PCP - General Family Medicine 02/20/15 Wire Welder Relationship Specialty Start Date End Date Kyle Sylvester MD [address] [place] [address] PCP - General Family Medicine 02/20/15 Wire 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 Relationship Specialty Start Date End Date Kyle Sylvester MD [address] [place] [address] PCP - General Family Medicine 02/20/15 Wire Welder Relationship Specialty Start Date End Date Kyle Sylvester MD [address] [place] [address] PCP - General Family Medicine 02/20/15 Wire Welder Relationship Specialty Start Date End Date Kyle Sylvester MD [address] [place] [address] PCP - General Family Medicine 02/20/15 Wire Welder Relationship Specialty Start Date End Date Kyle Sylvester MD [address] [place] [address] PCP - General Family Medicine 02/20/15 Wire Welder Relationship Specialty Start Date End Date Kyle Sylvester MD [address] [place] [address] PCP - General Family Medicine 02/20/15 Wire Welder Relationship Specialty Start Date End Date Kyle Sylvester MD [address] [place] [address] PCP - General Family Medicine 02/20/15 Wire Welder Relationship Specialty Start Date End Date Kyle Sylvester MD [address] [place] [address] PCP - General Family Medicine 02/20/15 Wire Welder Relationship Specialty Start Date End Date Kyle Sylvester MD [address] [place] [address] PCP - General Family Medicine 02/20/15 Wire Welder Relationship Specialty Start Date End Date Kyle Sylvester MD [address] [place] [address] PCP - General Family Medicine 02/20/15 Wire Welder Relationship Specialty Start Date End Date Kyle Sylvester MD [address] [place], [place] [address] PCP - General Family Medicine 02/20/15 Wire Welder Relationship Specialty Start Date End Date Kyle Sylvester MD [address] [place], [place] [address] PCP - General Family Medicine 02/20/15 PRN Active and Recently Administ ered Medications (unrecognized section and content) FOR RECORDS PERTAINING TO PATIENTS WHO ARE OR HAVE BEEN ENROLLED IN A CHEMICAL DEPENDENCY/SUBSTANCEABUSE PROGRAM, SOME INFORMATION MAY BE OMITTED. This clinical summary was aggregated from multiple sources. Caution should be exercised in using it in the provision of clinical care. This summary normalizes information from multiple sources, and as a consequence, information in this document may materially change the coding, format and clinical context of patient data. In addition, data may be omitted in some cases. CLINICAL DECISIONS SHOULD BE BASED ON THE PRIMARY CLINICAL RECORDS. [facility] [employer] provides no warranty or guarantee of the accuracy or completeness of information in this document.
[2024-01-17 12:51] LABS: Absolute Lymphocyte Count 1.66 X10^3/uL (0.83-4.51); Basophil# 0.04 X10^3/uL; Basophil% 0.4 % (0-1); Eosinophil# 0.02 X10^3/uL; Eosinophils% 0.2 % (0-5); Hematocrit 38.2 % (37-47); Hemoglobin 11.8 g/dL (12.0-15.0); Lymphocyte # 1.66 X10^3/ul (0.83-4.51); Lymphocyte % 15.6 % (19-41); Mean Corp Hgb Conc 30.9 g/dL (32-36); Mean Corpuscular Hgb 28.1 pg (27.0-32.0); Mean Platelet Vol. 10.5 fl (6.2-12.0); Monocyte% 8.4 % (0-10); NRBC Flagged by Analyzer 0 % (0-5); Platelet Count 317 K/mm3 (150-450); RBC Distribution Width SD 46.5 fl (35.1-43.9); White Blood Count 10.7 K/mm3 (4.4-11.0)
[2024-01-17 13:09] LABS: ALB/GLOB Ratio 0.9 RATIO (0.9-2.4); AST(SGOT) 14 U/L (15-37); Alanine Aminotransfer ALT/SGPT 18 U/L (13-56); Albumin, Serum 3.6 g/dL (3.2-5.0); Alkaline Phosphatase 64 U/L (45-117); Anion Gap 4 (5-15); BUN 20 mg/dL (7-18); BUN/Creat Ratio 17.9 RATIO (10-20); Calcium,Total 9.6 mg/dL (8.5-10.1); Chloride 109 mmol/L (98-107); Creatinine, Serum 1.12 mg/dL (0.55-1.02); EST Glomerular Filtration Rate 52 mL/min (>60); Est Glom Filt Rate - Afr Amer 63 mL/min (>60); Estimated Creatinine Clearance 51.26 ml/min; Globulin 3.8 g/dL (2.2-4.2); Glucose 112 mg/dL (74-106); Lipase 40 U/L (13-75); Potassium 3.3 mmol/L (3.5-5.1); Protein, Total 7.4 g/dL (6.4-8.2); Sodium Level 141 mmol/L (136-145)
[2024-01-17 13:23] LABS: Mucous, Urine 0 SEEN /hpf (<or=2+); Red Blood Cells-Urine 0 SEEN /hpf (0-5); Squamous Epithelial Cells - UA 0 SEEN /hpf (5-10)
[2024-01-17 13:25] LABS: Color, Urine Yellow (Yellow); Glucose, Dipstick Normal (Normal); Ketone-Dipstick Negative (Negative); Leukocyte Esterase-Dipstick 500 /ul (Negative); Nitrite-Dipstick Negative (Negative); Occult Blood-Urine 10 /ul (Negative); Protein-Dipstick 30 mg/dl (Negative); Specific Gravity, Urine 1.015 (1.002-1.030); Urine Bilirubin Dipstick Negative (Negative); Urine Clarity Sl. Cloudy (Clear); Urine Urobilinogen Normal (Normal)
[2024-01-17 13:34] LABS: Bacteria 1+ /hpf (None Seen); White Blood Cells 10-25 SEEN /hpf (0-5)
[2024-01-17 15:00] VITALS: BP 129/80; PULSE 82; RESP 16; TEMP 37.4; O2SAT 97
[2024-01-17] MEDS: Nitrofurantoin Macrocrystals 100 MG Capsule PO (16:17)
[2024-01-17] MEDS: Ondansetron ODT 4 MG Tablet PO (16:24)
[2024-01-17 16:26] VITALS: BP 112/74; PULSE 71; RESP 16; TEMP 36.4; O2SAT 96
== END 2024-01-17 16:49 | disposition home or self-care (01) ==
PROVIDERS: Emergency Provider Emergency Medicine; PCP Family Medicine; Visit Provider Emergency Medicine
DX: N13.6 Pyonephrosis (principal); E11.9 Type 2 diabetes mellitus without complications; Z87.891 Personal history of nicotine dependence; K21.9 Gastro-esophageal reflux disease without esophagitis; R35.0 Frequency of micturition
CPT/HCPCS: 74177; 80053; 81001; 83690; 85025; 87086; 87088; 87186; 96374; 96375; 96376; 99285; J7030; Q9967; A4216; J2405

== ENCOUNTER 2024-02-13 07:38 | Day surgery (SDC) | payer MEDICARE, MEDICAID, SELFPAY ==
[2024-02-13] VITALS (7 sets, daily range): BP systolic 99–118; BP diastolic 68–75; PULSE 64–70; RESP 12–166; TEMP 36.3; O2SAT 97–100; BMI 32.1
[2024-02-13] MEDS: Lactated Ringers 1,000 ML 15 ML IV (08:17)
--- NOTE | 2024-02-13 08:39 | HP.PCM_ITS ---
HPI - General General Date of Service: 02/13/24 Chief Complaint: Obstructing left ureteral calculi possible right HPI Narrative SIN MARSHALL, is a 63 F who presents for treatment of a left ureteral calculi that is in the distal ureter but she also complains of severe right flank pain at this morning so we will proceed with bilateral ureteroscopy laser lithotripsy and possible stent placement [facility] Medical History (Updated 02/05/24 @ 14:09 by Susan Cross) Abdominal pain Acid reflux Anemia Anxiety Arthritis Back pain Constipation CPAP (continuous positive airway pressure) dependence Depression Diabetes Diarrhea Diverticulitis Emphysema, unspecified Former smoker High cholesterol History of diverticulitis History of hiatal hernia History of steroid therapy History of stress test Hypothyroid IBS (irritable bowel syndrome) Lipidemia Migraine headache Nausea and vomiting Post-menopausal Shortness of breath on exertion Sleep apnea SOB (shortness of breath) Stroke Thyroid disease TIA (transient ischemic attack) Wears glasses Wears hearing aid Home Medications aripiprazole 10 mg tablet 15 mg PO DAILY 10/01/16 [History Last Taken Unknown] duloxetine 60 mg capsule,delayed release 30 mg PO DAILY 10/01/16 [History Last Taken Unknown] rosuvastatin 40 mg tablet 40 mg PO QHS 10/01/16 [History Last Taken Unknown] pantoprazole 40 mg tablet,delayed release 40 mg PO BID 11/29/17 [History Last Taken 08/11/19 07:30] topiramate 25 mg tablet 100 mg PO BID 01/11/18 [History Last Taken 08/11/19 07:30] albuterol sulfate 90 mcg/actuation aerosol inhaler 2 puff inhalation Q4H PRN PRN Wheezing 06/04/19 [History Last Taken Unknown] lactase 3,000 unit tablet 3,000 unit PO TIDCM 06/04/19 [History Last Taken Unknown] fenofibrate 54 mg tablet 54 mg PO DAILY 06/14/19 [History Last Taken Unknown] levothyroxine 137 mcg tablet 137 mcg PO MOTUWETHFRSA 12/16/20 [History Last Taken Unknown] cyanocobalamin (vitamin B-12) 1,000 mcg tablet 1,000 mcg PO DAILY 11/24/22 [History Last Taken Unknown] ergocalciferol (vitamin D2) 1,250 mcg (50,000 unit) capsule 1,250 mcg PO TU 11/24/22 [History Last Taken Unknown] ezetimibe 10 mg tablet 10 mg PO QHS 11/24/22 [History Last Taken Unknown] gabapentin 400 mg capsule 600 mg PO TID 11/24/22 [History Last Taken Unknown] levothyroxine 137 mcg tablet 68.5 mcg PO CARMEN 11/24/22 [History Last Taken Unknown] metformin 500 mg tablet,extended release 24 hr 500 mg PO DAILY 11/24/22 [History Last Taken Unknown] amitriptyline 25 mg tablet 25 mg PO QHS 07/26/23 [History Last Taken Unknown] aspirin 81 mg tablet,delayed release (Adult Aspirin Regimen) 81 mg PO DAILY 07/26/23 [History Last Taken 01/29/24] buspirone 10 mg tablet 10 mg PO DAILY PRN mental health 07/26/23 [History Last Taken Unknown] plecanatide 3 mg tablet (Trulance) 3 mg PO DAILY 07/26/23 [History Last Taken Unknown] rimegepant 75 mg disintegrating tablet (Nurtec ODT) 75 mg PO DAILY PRN . 07/26/23 [History Last Taken Unknown] ropinirole 1 mg tablet 1 mg PO QHS 07/26/23 [History Last Taken Unknown] tizanidine 4 mg tablet 4 mg PO TID PRN . 07/26/23 [History Last Taken Unknown] oxycodone-acetaminophen 5 mg-325 mg tablet (Percocet) 1 tab PO Q4H PRN pain 3 days #14 tabs 01/17/24 [Rx Last Taken Unknown] acetaminophen 650 mg tablet,extended release (8 Hour Pain Reliever) 650 mg PO Q12H PRN pain 02/05/24 [History Last Taken Unknown] ciprofloxacin HCl 500 mg tablet (Cipro) 500 mg PO BID #6 tabs 02/13/24 [Rx Last Taken Unknown] oxycodone 5 mg tablet 5 mg PO Q6H PRN pain 7 days #14 tabs 02/13/24 [Rx Last Taken Unknown] Allergy/AdvReac Type Severity Reaction Status Date / Time divalproex sodium Allergy Severe Nausea/Vom/ Verified 02/13/24 08:09 [From Depakote] Diarrhea metronidazole [From Flagyl] Allergy Nausea/Vom/ Verified 02/13/24 08:09 Diarrhea ibuprofen AdvReac Severe Nausea/Vom/ Verified 02/13/24 08:09 Diarrhea acetaminophen [From Tylenol] AdvReac Nausea/Vom/ Verified 02/13/24 08:09 Diarrhea benztropine [From Cogentin] AdvReac Other Verified 02/13/24 08:09 esomeprazole [From Nexium] AdvReac Nausea Verified 02/13/24 08:09 oxybutynin [From Ditropan] AdvReac Nausea/Vom/ Verified 02/13/24 08:09 Diarrhea Surgical History (Updated 02/05/24 @ 14:09 by Susan Cross) history bladder sling history left ulnar nerve repair History of arthroscopy of left knee History of esophagogastroduodenoscopy (EGD) Hx of arthroscopic knee surgery Hx of colonoscopy Hx of tonsillectomy Social History Smoking Status: Former smoker alcohol intake: never substance use type: does not use Vital Signs Vital Signs Vital Signs: 02/13/24 08:01 02/13/24 08:01 Temperature 97.4 F L Temperature Source Temporal Pulse Rate 70 Respiratory Rate 12 Respiratory Pattern Normal Blood Pressure 118/74 Blood Pressure Mean 88 Blood Pressure Source Monitor Blood Pressure Position Semi-Fowlers Blood Pressure Location Left Arm Pulse Ox 100 Oxygen Delivery Method Room Air Weight Weight: 82.2 kg Body Mass Index (BMI) 32.1
--- NOTE | 2024-02-13 08:39 | DCINST_ITS ---
Discharge Instructions Diet Discharge Diet: No restrictions Activity Discharge Activity: Return to Normal Activity and May Not Drive (while taking narcotic pain medications.) Dressing / Incision Call your doctor if you observe: Fever of 101 or Higher Follow Up Care Please Follow Up With: Carter Greer MD When: Call [phone] for an appointment Test Results: Test results from this visit will be discussed in further detail at your follow- up appointment, if applicable. Discharge Plan Admission Primary Reason for Your Visit: laser stone Attending Provider: Carter Greer Primary Care Provider: Kyle Monterroso Discharge Orders/Prescriptions Prescriptions: New ciprofloxacin HCl [Cipro] 500 mg tablet 500 mg PO BID Qty: 6 0RF oxycodone 5 mg tablet 5 mg PO Q6H PRN (Reason: pain) 7 Days Qty: 14 0RF Continued fenofibrate 54 mg tablet 54 mg PO DAILY aripiprazole 10 MG tablet 15 mg PO DAILY rosuvastatin 40 MG tablet 40 mg PO QHS duloxetine 60 MG capsule 30 mg PO DAILY pantoprazole 40 MG tablet 40 mg PO BID topiramate 25 MG tablet 100 mg PO BID lactase 3,000 UNIT tablet 3,000 unit PO TIDCM albuterol sulfate 1 INHALER inhaler 2 puff inhalation Q4H PRN PRN (Reason: Wheezing) levothyroxine 137 MCG tablet 137 mcg PO MOTUWETHFRSA levothyroxine 137 mcg tablet 68.5 mcg PO CARMEN Patient Comments: TAKE 1 TABLET BY MOUTH ONCE DAILY FRIDAY-FRIDAY AND 2 TABLETS ON FRIDAY metformin 500 mg tablet extended release 24 hr 500 mg PO DAILY Patient Comments: TAKE 1 TABLET BY MOUTH ONCE DAILY WITH BREAKFAST gabapentin 400 mg Capsule 600 mg PO TID Patient Comments: PT REPORTS TAKING 400MG 1 TIME A DAY Rx Instructions: PT REPORTS TAKING 400 MG 1 TIME PER DAY cyanocobalamin (vitamin B-12) 1,000 mcg tablet 1,000 mcg PO DAILY Patient Comments: TAKE 1 TABLET BY MOUTH ONCE DAILY ergocalciferol (vitamin D2) 1,250 mcg (50,000 unit) capsule 1,250 mcg PO Patient Comments: TAKE 1 CAPSULE BY MOUTH ONCE A WEEK () ezetimibe 10 mg tablet 10 mg PO QHS Patient Comments: TAKE 1 TABLET BY MOUTH ONCE DAILY ropinirole 1 mg tablet 1 mg PO QHS Patient Comments: TAKE 1 TABLET BY MOUTH BEFORE BEDTIME buspirone 10 mg tablet 10 mg PO DAILY PRN (Reason: mental health) Patient Comments: TAKE 1 TABLET BY MOUTH ONCE DAILY NEEDED Trulance 3 mg tablet 3 mg PO DAILY tizanidine 4 mg tablet 4 mg PO TID PRN Patient Comments: TAKE 1 TABLET BY MOUTH UP TO THREE TIMES DAILY NEEDED FOR PAINFUL MUSCLE SPASMS Nurtec ODT 75 mg tablet,disintegrating 75 mg PO DAILY PRN Patient Comments: DISSOLVE 1 TABLET BY MOUTH ONCE DAILY NEEDED amitriptyline 25 mg tablet 25 mg PO QHS Patient Comments: TAKE 1 TABLET BY MOUTH ONCE DAILY AT BEDTIME aspirin [Adult Aspirin Regimen] 81 mg tablet,delayed release (DR/EC) 81 mg PO DAILY oxycodone-acetaminophen [Percocet] 5-325 mg tablet 1 tab PO Q4H PRN (Reason: pain) 3 Days Qty: 14 0RF acetaminophen [8 Hour Pain Reliever] 650 mg tablet extended release 650 mg PO Q12H PRN (Reason: pain) Referrals / Follow Up: Kyle Monterroso MD [Primary Care Provider] - Carter Greer MD [Med Staff - Active Staff] - Disposition Disposition (needs filled in before D/C Order can be placed): Home, Self Care
[2024-02-13] MEDS: Cefazolin 2 GM in 0.9% Normal Saline (100mL Bag) 100 ML IV (08:45)
--- NOTE | 2024-02-13 09:12 | PCM.OPRPT ---
Report of Operation Date of Procedure: 02/13/24 Pre-Operative Diagnosis: Bilateral kidney stones Post-Operative Diagnosis: Same Surgery/Procedure Performed:: Cystoscopy, right ureteroscopy, right retrograde pyelogram, left ureteroscopy laser lithotripsy of stone and left retrograde pyelogram, no stents placed Description of Surgical Findings:: Patient was taken back to the operating room at a smooth induction of general anesthesia she was placed in dorsolithotomy position. Prior CAT scan was reviewed she has a stone in the distal left ureter also stone in the lower pole the right kidney but she did not complain about right-sided flank pain and think she is passing a stone in the right side so she requested I checked the right side. She taken back to the operating room at a smooth induction of anesthesia she was placed in dorsolithotomy position. The urethrovaginal prepped and draped in usual sterile fashion went in the bladder with a semirigid ureteroscope was able to cannulate the right ureteral orifice with a Glidewire and the ureteroscope quite easily went up the ureter went all the way to the renal pelvis and no stone was seen I then cannulated the right ureteral orifice and performed retrograde pyelogram see contrast going all the way to the kidney no obstruction and there was a very small stone in the lower pole of the right kidney but it was not causing the obstruction causing no blockage. I then went to the left side and put a wire up in the left ureter and over the wire went in with a semirigid ureteroscope and then encountered the stone in the distal left ureter stone with the laser little tiny tiny pieces that all passed into the bladder and then performed her left retrograde pyelogram see contrast going up to the kidney and contrast and draining normally no other obstruction seen. I did not place a stent since it was minimal inflammation of the ureter and the stone was completely removed. Patient's bladder was drained anesthetic was reversed plan to see her back in about a month with a KUB and ultrasound of her kidney. Surgeon: Carter Greer Type of Anesthesia: General Drains: none Admit VTE Documentation VTE Present on Admission: No VTE Mechan Device Prophylaxis: SCD's VTE Pharm Prophylaxis ordered?: No
[2024-02-13 09:39] LABS: Bedside Glucose 103 mg/dL (74-106)
[2024-02-13 09:48] LABS: Bedside Glucose 110 mg/dL (74-106)
== END 2024-02-13 10:44 | disposition home or self-care (01) ==
LOC: SDC 07:39 → AC 07:41
PROVIDERS: PCP Family Medicine; Referring Provider Family Medicine; Visit Provider Urology
PROC: 0TJ98ZZ Inspection of Ureter, Via Natural or Artificial Opening Endoscopic (ICD-10-PCS; CPT 52352; principal; 2024-02-13 09:20)
DX: N20.2 Calculus of kidney with calculus of ureter (principal); J43.9 Emphysema, unspecified; E11.9 Type 2 diabetes mellitus without complications; Z87.891 Personal history of nicotine dependence; E78.00 Pure hypercholesterolemia, unspecified; Z79.82 Long term (current) use of aspirin; Z79.899 Other long term (current) drug therapy; Z79.890 Hormone replacement therapy; Z79.84 Long term (current) use of oral hypoglycemic drugs; E03.9 Hypothyroidism, unspecified
CPT/HCPCS: 52353; 00873; 76000; 82962; J7120; C1769; J2405

== ENCOUNTER → 2024-02-26 | Outpatient (CLI) | payer MEDICARE, MEDICAID, SELFPAY ==
--- NOTE | 2024-02-26 08:15 | RAD_ITS ---
INDICATION: KIDNEY STONE EXAMINATION/TECHNIQUE: X-RAY - XR Abdomen 1 View COMPARISON: CT abdomen and pelvis January 17, 2024 FINDINGS: BOWEL GAS PATTERN: No abnormally distended, air-filled bowel loops or air fluid levels. FREE AIR: None exemplified. ORGANOMEGALY: Not seen. CALCIFICATIONS: 5 mm stone inferior pole right kidney shadow corresponds with the right renal stone seen on comparison CT. 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 LOWER CHEST: No acute pathology. BONES AND SOFT TISSUES: No acute pathology. RAD/Abdomen Single View IMPRESSION: 1. Likely interval passage of previously seen distal left ureterovesical junction stone. 2. Unchanged 5 mm stone inferior pole right kidney. Electronically Signed: Patricio Su DO at 23:54 EDT ,
== END | disposition home or self-care (01) ==
LOC: RAD 08:14
PROVIDERS: PCP Family Medicine; Referring Provider Urology; Visit Provider Urology
DX: N20.0 Calculus of kidney (principal)
CPT/HCPCS: 74018

== ENCOUNTER 2024-03-11 13:15 | Emergency (ER) | payer MEDICARE, MEDICAID, SELFPAY ==
[2024-03-11 13:16] VITALS: BP 144/86; PULSE 96; RESP 16; TEMP 36.1; O2SAT 96; BMI 32.2
--- NOTE | 2024-03-11 13:58 | CT_ITS ---
STUDY: CT ABDOMEN AND PELVIS WITH CONTRAST REASON FOR EXAM: Female, 63 years old. Upper abdominal pain for 3 days. RADIATION DOSAGE (If Supplied By Facility): CTDIvol = ( 15.95 ) mGy, DLP = ( 750.21 ) mGycm TECHNIQUE: Transaxial images were obtained from the dome of the diaphragm to the symphysis pubis with oral contrast. Oral and amp; IV Gastrografin and amp; 100mL Isovue-300 was administered. Sagittal and coronal images were reconstructed. Individualized dose optimization techniques were used for this CT. COMPARISON: Comparison is made with prior study January 17, 2024. FINDINGS: The visualized lung bases are unremarkable. The visualized portions of the heart are within normal limits. There is hepatomegaly with diffuse hepatic enlargement. Normal gallbladder and extrahepatic biliary system. Normal spleen. Normal pancreas. Normal bilateral adrenal glands. There is a 5.5 mm nonobstructive cognition the upper pole of the right kidney. Normal left kidney. Normal visualized stomach. Normal small intestine. There are multiple colonic diverticula consistent with diverticulosis. The appendix is visualized and appears normal. There is diffuse atherosclerotic calcification of the abdominal aorta, without a demonstrated aneurysm. Normal inferior vena cava. Normal retroperitoneum. Normal urinary bladder. Normal abdominal wall. This patient and at the L5-S1 level. CT/Abdomen/Pelvis WITH Contrast IMPRESSION: Hepatomegaly. Sigmoid diverticulosis. Nonobstructive calculus in the right kidney. Electronically Signed: Elijah Gill MD at 15:52 EDT ,
--- NOTE | 2024-03-11 13:59 | EDS_ITS ---
HPI History of Present Illness Chief Complaint: Abd Pain Informant: patient and spouse/S.O. Narrative Narrative: 63-year-old female presenting to the emergency room with a chief complaint of vomiting epigastric pain. Patient states that about 6 months ago she (April 2023) she underwent a endoscopic pyloromyotomy at [facility] with Dr. Puente. She states she was doing well up until about 3 days ago when she began to have a knot in her epigastrium like sensation. She states that she began to vomit last night also had vomiting today. She was able to keep some coffee down. She states her abdomen feels bloated but has been feeling bloated. No reported fevers. She has been moving her bowels normally [facility] Medical History Abdominal pain Acid reflux Anemia Anxiety Arthritis Back pain Constipation CPAP (continuous positive airway pressure) dependence Depression Diabetes Diarrhea Diverticulitis Emphysema, unspecified Former smoker High cholesterol History of diverticulitis History of hiatal hernia History of steroid therapy History of stress test Hypothyroid IBS (irritable bowel syndrome) Lipidemia Migraine headache Nausea and vomiting Post-menopausal Shortness of breath on exertion Sleep apnea SOB (shortness of breath) Stroke Thyroid disease TIA (transient ischemic attack) Wears glasses Wears hearing aid Home Medications aripiprazole 10 mg tablet 15 mg PO DAILY 10/01/16 [History Last Taken Unknown] duloxetine 60 mg capsule,delayed release 30 mg PO DAILY 10/01/16 [History Last Taken Unknown] rosuvastatin 40 mg tablet 40 mg PO QHS 10/01/16 [History Last Taken Unknown] pantoprazole 40 mg tablet,delayed release 40 mg PO BID 11/29/17 [History Last Ta yoly 08/11/19 07:30] topiramate 25 mg tablet 100 mg PO BID 01/11/18 [History Last Taken 08/11/19 07:30] albuterol sulfate 90 mcg/actuation aerosol inhaler 2 puff inhalation Q4H PRN PRN Wheezing 06/04/19 [History Last Taken Unknown] lactase 3,000 unit tablet 3,000 unit PO TIDCM 06/04/19 [History Last Taken Unknown] fenofibrate 54 mg tablet 54 mg PO DAILY 06/14/19 [History Last Taken Unknown] levothyroxine 137 mcg tablet 137 mcg PO MOTUWETHFRSA 12/16/20 [History Last Taken Unknown] cyanocobalamin (vitamin B-12) 1,000 mcg tablet 1,000 mcg PO DAILY 11/24/22 [History Last Taken Unknown] ergocalciferol (vitamin D2) 1,250 mcg (50,000 unit) capsule 1,250 mcg PO TU 11/24/22 [History Last Taken Unknown] ezetimibe 10 mg tablet 10 mg PO QHS 11/24/22 [History Last Taken Unknown] gabapentin 400 mg capsule 600 mg PO TID 11/24/22 [History Last Taken Unknown] levothyroxine 137 mcg tablet 68.5 mcg PO CARMEN 11/24/22 [History Last Taken Unknown] metformin 500 mg tablet,extended release 24 hr 500 mg PO DAILY 11/24/22 [History Last Taken Unknown] amitriptyline 25 mg tablet 25 mg PO QHS 07/26/23 [History Last Taken Unknown] aspirin 81 mg tablet,delayed release (Adult Aspirin Regimen) 81 mg PO DAILY 07/26/23 [History Last Taken 01/29/24] buspirone 10 mg tablet 10 mg PO DAILY PRN mental health 07/26/23 [History Last Taken Unknown] plecanatide 3 mg tablet (Trulance) 3 mg PO DAILY 07/26/23 [History Last Taken Unknown] rimegepant 75 mg disintegrating tablet (Nurtec ODT) 75 mg PO DAILY PRN . 07/26/23 [History Last Taken Unknown] ropinirole 1 mg tablet 1 mg PO QHS 07/26/23 [History Last Taken Unknown] tizanidine 4 mg tablet 4 mg PO TID PRN . 07/26/23 [History Last Taken Unknown] oxycodone-acetaminophen 5 mg-325 mg tablet (Percocet) 1 tab PO Q4H PRN pain 3 days #14 tabs 01/17/24 [Rx Last Taken Unknown] acetaminophen 650 mg tablet,extended release (8 Hour Pain Reliever) 650 mg PO Q12H PRN pain 02/05/24 [History Last Taken Unknown] ciprofloxacin HCl 500 mg tablet (Cipro) 500 mg PO BID #6 tabs 02/13/24 [Rx Last Taken Unknown] oxycodone 5 mg tablet 5 mg PO Q6H PRN pain 7 days #14 tabs 02/13/24 [Rx Last Taken Unknown] ondansetron 4 mg disintegrating tablet 4 mg PO Q6H PRN PRN Nausea #20 tabs 03/11/24 [Rx Last Taken Unknown] oxycodone-acetaminophen 5 mg-325 mg tablet 1 tab PO Q6H PRN PRN Pain 3 days #12 TABLETS 03/11/24 [Rx Last Taken Unknown] Allergy/AdvReac Type Severity Reaction Status Date / Time divalproex sodium Allergy Severe Nausea/Vom/ Verified 03/11/24 13:17 [From Depakote] Diarrhea metronidazole [From Flagyl] Allergy Nausea/Vom/ Verified 03/11/24 13:17 Diarrhea ibuprofen AdvReac Severe Nausea/Vom/ Verified 03/11/24 13:17 Diarrhea acetaminophen [From Tylenol] AdvReac Nausea/Vom/ Verified 03/11/24 13:17 Diarrhea benztropine [From Cogentin] AdvReac Other Verified 03/11/24 13:17 esomeprazole [From Nexium] AdvReac Nausea Verified 03/11/24 13:17 oxybutynin [From Ditropan] AdvReac Nausea/Vom/ Verified 03/11/24 13:17 Diarrhea Surgical History history bladder sling history left ulnar nerve repair History of arthroscopy of left knee History of esophagogastroduodenoscopy (EGD) Hx of arthroscopic knee surgery Hx of colonoscopy Hx of tonsillectomy Social History Smoking Status: Former smoker alcohol intake: never substance use type: does not use ROS ROS ED Constitutional Constitutional ED: Denies chills, fever(s) or weight loss Eyes Eyes: Denies change in vision or diplopia ENT ENT ED: Denies ear pain, rhinorrhea or sore throat Cardiovascular Cardiovascular: Denies chest pain, orthopnea, palpitations or racing heartbeat Respiratory/Chest Respiratory/Chest: Denies cough, dyspnea or orthopnea Gastrointestinal Gastrointestinal: Reports abdominal pain, nausea and vomiting; Denies diarrhea Genitourinary Genitourinary ED: Denies dysuria, hematuria or urinary frequency Musculoskeletal Musculoskeletal: Denies arthralgias or myalgias Integumentary Denies abscess or rash Neurologic Neurologic: Denies headache(s) or weakness Psychiatric Psychiatric: Denies anxiety, depression, suicidal ideation or suicidal thoughts Endocrine Endocrinology: Denies polydipsia, polyphagia or polyuria Allergic/Immunologic Allergic/Immunologic ED: Denies mouth swelling, tongue swelling or urticaria EXAM Physical Exam Const Vital Signs: 03/11/24 13:16 03/11/24 15:15 Temperature 96.9 F L Temperature Source Temporal Pulse Rate 96 95 Respiratory Rate 16 14 Blood Pressure 144/86 H 142/86 H Blood Pressure Mean 105 104 Pulse Ox 96 96 Oxygen Delivery Method Room Air Room Air Positive well nourished and well developed General Appearance ED: well developed HEENT Reports normocephalic, head/scalp atraumatic and moist mucous membranes Eyes PERRL and EOMs intact bilaterally Neck no lymphadenopathy, supple and no JVD Resp normal respiratory effort and clear to auscultation bilaterally Cardio regular rate, regular rhythm and no murmurs GI normal to inspection, nondistended, normoactive bowel sounds and non-tender GI Narrative: Protuberant abdomen Inspection: Negative for abdominal distention Palpation: soft; Negative for tender Back/Spine no CVA tenderness and normal ROM Extremity normal to inspection General Extremety ED: Negative for edema General Extremity: Negative for edema Neuro oriented x3 and CN's II-XII intact bilaterally Sensorium / Orientation: alert Motor Exam: strength 5/5 throughout Psych mental status grossly normal Mood & Affect: Negative for depressed or tearful Skin no rashes or lesions noted and no wounds MDM MDM MDM Narrative Medical decision making narrative: Basic blood works obtained was rather unremarkable. Urinalysis with no overt infection. CT on pelvis with oral and IV contrast was obtained. The contrast goes through to the stomach and small intestine. No evidence of small bowel obstruction. I do not see any acute inflammatory process. Spoke with the patient she is appearing well-hydrated. I spoke with local gastroenterology who recommends that the patient follow-up at a larger center as she has already had the endoscopic POP. Patient was instructed to get a hold of her previous doctor but she states she will go back and see them because they had a disagreement. She may wish to try a [facility] or [facility]. History & Record Review Discussion w/independent historian: Patient and Significant other Additional record(s) reviewed:: Prior ED visit and Prior labs Lab Data Attestation: I reviewed the patient's lab results. Labs: Laboratory Results - last 24 hr 03/11/24 03/11/24 14:05 14:25 WBC 5.9 RBC 4.24 Hgb 11.8 L Hct 37.8 MCV 89.2 MCH 27.8 MCHC 31.2 L RDW Std Deviation 45.0 H RDW Coeff of Cortes 13.9 Plt Count 336 MPV 10.1 Immature Gran % (Auto) 0.300 Neut % (Auto) 47.2 Lymph % (Auto) 42.6 H Z[place] % (Auto) 7.6 Eos % (Auto) 2.0 Baso % (Auto) 0.3 Absolute Neuts (auto) 2.8 Absolute Lymphs (auto) 2.52 Nucleated RBC % 0 Sodium 140 Potassium 3.6 Chloride 107 Carbon Dioxide 28.0 Anion Gap 5 BUN 15 Creatinine 0.94 Estim Creat Clear Calc 60.74 Est GFR (MDRD) Af Amer 77 Est GFR (MDRD) Non-Af 64 BUN/Creatinine Ratio 16.0 Glucose 102 Calcium 9.6 Total Bilirubin 0.40 Direct Bilirubin 0.08 AST 14 L ALT 17 Alkaline Phosphatase 68 Total Protein 7.7 Albumin 3.9 Globulin 3.8 Lipase 61 Urine Color Straw Urine Clarity Clear Urine pH 7.0 Ur Specific [place] 1.010 Urine Protein Negative Urine Glucose (UA) Normal Urine Ketones Negative Urine Occult Blood Negative Urine Nitrite Negative Urine Bilirubin Negative Urine Urobilinogen Normal Ur Leukocyte Esterase 25 H Urine RBC 0 SEEN Urine WBC 0-5 SEEN Ur Squamous Epith Cells 0-5 SEEN Urine Bacteria 3+ Urine Mucus 0 SEEN Radiography Diagnostic Testing: Clinical Impression(s) from Imaging Studies Abdomen/Pelvis CT 03/11/24 13:58 IMPRESSION: Hepatomegaly. Sigmoid diverticulosis. Nonobstructive calculus in the right kidney. Electronically Signed: Elijah Gill MD at 15:52 EDT , Discharge Plan Triage Chief Complaint: Abd Pain ED Provider: Kit Collier Dx/Rx/DC Orders Clinical Impression: Abdominal pain, Vomiting Instructions: Abdominal Pain Prescriptions: New oxycodone-acetaminophen [oxycodone-acetaminophen] 5-325 mg tablet 1 tab PO Q6H PRN PRN (Reason: Pain) 3 Days Qty: 12 0RF ondansetron [ondansetron] 4 mg tablet,disintegrating 4 mg PO Q6H PRN PRN (Reason: Nausea) Qty: 20 0RF No Action fenofibrate 54 mg tablet 54 mg PO DAILY aripiprazole 10 MG tablet 15 mg PO DAILY rosuvastatin 40 MG tablet 40 mg PO QHS duloxetine 60 MG capsule 30 mg PO DAILY pantoprazole 40 MG tablet 40 mg PO BID topiramate 25 MG tablet 100 mg PO BID lactase 3,000 UNIT tablet 3,000 unit PO TIDCM albuterol sulfate 1 INHALER inhaler 2 puff inhalation Q4H PRN PRN (Reason: Wheezing) levothyroxine 137 MCG tablet 137 mcg PO MOTUWETHFRSA levothyroxine 137 mcg tablet 68.5 mcg PO CARMEN Patient Comments: TAKE 1 TABLET BY MOUTH ONCE DAILY FRIDAY-FRIDAY AND 2 TABLETS ON FRIDAY metformin 500 mg tablet extended release 24 hr 500 mg PO DAILY Patient Comments: TAKE 1 TABLET BY MOUTH ONCE DAILY WITH BREAKFAST gabapentin 400 mg Capsule 600 mg PO TID Patient Comments: PT REPORTS TAKING 400MG 1 TIME A DAY Rx Instructions: PT REPORTS TAKING 400 MG 1 TIME PER DAY cyanocobalamin (vitamin B-12) 1,000 mcg tablet 1,000 mcg PO DAILY Patient Comments: TAKE 1 TABLET BY MOUTH ONCE DAILY ergocalciferol (vitamin D2) 1,250 mcg (50,000 unit) capsule 1,250 mcg PO Patient Comments: TAKE 1 CAPSULE BY MOUTH ONCE A WEEK () ezetimibe 10 mg tablet 10 mg PO QHS Patient Comments: TAKE 1 TABLET BY MOUTH ONCE DAILY ropinirole 1 mg tablet 1 mg PO QHS Patient Comments: TAKE 1 TABLET BY MOUTH BEFORE BEDTIME buspirone 10 mg tablet 10 mg PO DAILY PRN (Reason: mental health) Patient Comments: TAKE 1 TABLET BY MOUTH ONCE DAILY NEEDED Trulance 3 mg tablet 3 mg PO DAILY tizanidine 4 mg tablet 4 mg PO TID PRN Patient Comments: TAKE 1 TABLET BY MOUTH UP TO THREE TIMES DAILY NEEDED FOR PAINFUL MUSCLE SPASMS Nurtec ODT 75 mg tablet,disintegrating 75 mg PO DAILY PRN Patient Comments: DISSOLVE 1 TABLET BY MOUTH ONCE DAILY NEEDED amitriptyline 25 mg tablet 25 mg PO QHS Patient Comments: TAKE 1 TABLET BY MOUTH ONCE DAILY AT BEDTIME aspirin [Adult Aspirin Regimen] 81 mg tablet,delayed release (DR/EC) 81 mg PO DAILY oxycodone-acetaminophen [Percocet] 5-325 mg tablet 1 tab PO Q4H PRN (Reason: pain) 3 Days Qty: 14 0RF acetaminophen [8 Hour Pain Reliever] 650 mg tablet extended release 650 mg PO Q12H PRN (Reason: pain) ciprofloxacin HCl [Cipro] 500 mg tablet 500 mg PO BID Qty: 6 0RF oxycodone 5 mg tablet 5 mg PO Q6H PRN (Reason: pain) 7 Days Qty: 14 0RF Primary Care Provider: Kyle Monterroso Referrals: Kyle Monterroso MD [Primary Care Provider] - Activity Restrictions/Additional Instructions: I strongly recommend following up with gastroenterology either at [facility] or [facility]. I would consider calling their patient assistance line and finding 1 or speaking with your primary care doctor about a referral if needed. Disposition Disposition: Home, Self Care
[2024-03-11] MEDS: Ondansetron 4 MG/2 ML Vial IV (14:16)
[2024-03-11] MEDS: 0.9% Normal Saline (1000mL) 1,000 ML 125 ML IV (14:16)
[2024-03-11] MEDS: Morphine 4 MG/ML Syringe IV (14:17)
[2024-03-11 14:24] LABS: Absolute Lymphocyte Count 2.52 X10^3/uL (0.83-4.51); Absolute Neutrophil Count 2.8 X10^3/uL (2.0-7.7); Basophil# 0.02 X10^3/uL; Basophil% 0.3 % (0-1); Eosinophil# 0.12 X10^3/uL; Hematocrit 37.8 % (37-47); Hemoglobin 11.8 g/dL (12.0-15.0); Lymphocyte # 2.52 X10^3/ul (0.83-4.51); Lymphocyte % 42.6 % (19-41); Mean Corp Hgb Conc 31.2 g/dL (32-36); Mean Corpuscular Hgb 27.8 pg (27.0-32.0); Mean Corpuscular Volume 89.2 fL (81-99); Mean Platelet Vol. 10.1 fl (6.2-12.0); Monocyte# 0.45 X10^3/uL; Monocyte% 7.6 % (0-10); NRBC Flagged by Analyzer 0 % (0-5); Neutrophil # 2.79 X10^3/uL (2.7-7.7); Neutrophil % 47.2 % (47-70); Platelet Count 336 K/mm3 (150-450); RBC Distribution Width CV 13.9 % (11.6-14.6); Red Blood Count 4.24 M/mm3 (4.2-5.4); White Blood Count 5.9 K/mm3 (4.4-11.0)
[2024-03-11 14:30] LABS: Mucous, Urine 0 SEEN /hpf (<or=2+); Red Blood Cells-Urine 0 SEEN /hpf (0-5)
[2024-03-11 14:36] LABS: AST(SGOT) 14 U/L (15-37); Alanine Aminotransfer ALT/SGPT 17 U/L (13-56); Albumin, Serum 3.9 g/dL (3.2-5.0); Alkaline Phosphatase 68 U/L (45-117); Anion Gap 5 (5-15); BUN 15 mg/dL (7-18); Bilirubin, Direct 0.08 mg/dL (0.00-0.30); Calcium,Total 9.6 mg/dL (8.5-10.1); Chloride 107 mmol/L (98-107); Creatinine, Serum 0.94 mg/dL (0.55-1.02); EST Glomerular Filtration Rate 64 mL/min (>60); Est Glom Filt Rate - Afr Amer 77 mL/min (>60); Estimated Creatinine Clearance 60.74 ml/min; Globulin 3.8 g/dL (2.2-4.2); Glucose 102 mg/dL (74-106); Lipase 61 U/L (13-75); Potassium 3.6 mmol/L (3.5-5.1); Protein, Total 7.7 g/dL (6.4-8.2); Sodium Level 140 mmol/L (136-145)
[2024-03-11 14:41] LABS: Color, Urine Straw (Yellow); Glucose, Dipstick Normal (Normal); Ketone-Dipstick Negative (Negative); Leukocyte Esterase-Dipstick 25 /ul (Negative); Nitrite-Dipstick Negative (Negative); Occult Blood-Urine Negative /ul (Negative); Protein-Dipstick Negative (Negative); Urine Bilirubin Dipstick Negative (Negative); Urine Clarity Clear (Clear); Urine Urobilinogen Normal (Normal)
[2024-03-11 14:49] LABS: White Blood Cells 0-5 SEEN /hpf (0-5)
[2024-03-11 14:50] LABS: Bacteria 3+ /hpf (None Seen); Squamous Epithelial Cells - UA 0-5 SEEN /hpf (5-10)
[2024-03-11 15:15] VITALS: BP 142/86; PULSE 95; RESP 14; O2SAT 96
[2024-03-11 17:00] VITALS: BP 152/84; PULSE 77; RESP 16; O2SAT 97
[2024-03-11 17:18] VITALS: BP 152/84; PULSE 77; RESP 16; TEMP 36.7; O2SAT 97
== END 2024-03-11 17:18 | disposition home or self-care (01) ==
PROVIDERS: Emergency Provider Emergency Medicine; PCP Family Medicine; Visit Provider Emergency Medicine
DX: R10.9 Unspecified abdominal pain (principal); J43.9 Emphysema, unspecified; E11.9 Type 2 diabetes mellitus without complications; R11.10 Vomiting, unspecified; Z87.891 Personal history of nicotine dependence; K21.9 Gastro-esophageal reflux disease without esophagitis; E78.00 Pure hypercholesterolemia, unspecified
CPT/HCPCS: 74177; 80048; 80076; 81001; 83690; 85025; 96361; 96374; 96375; 99283; J7030; Q9967; A4216; J2405

== ENCOUNTER 2024-03-26 11:44 | Day surgery (SDC) | payer MEDICARE, MEDICAID, SELFPAY ==
[2024-03-26] VITALS (7 sets, daily range): BP systolic 116–132; BP diastolic 74–106; PULSE 67–76; RESP 14–18; TEMP 36–36.7; O2SAT 92–100; BMI 32.8
--- NOTE | 2024-03-26 07:09 | RAD_ITS ---
STUDY: X-RAY - ABDOMEN/PELVIS REASON FOR EXAM: Female, 64 years old. Kidney stone protocol TECHNIQUE: Single AP view of the abdomen / pelvis. COMPARISON: Comparison is made with prior study February 26, 2024. FINDINGS: Mild left basilar atelectasis. There is a moderate amount of colonic fecal material. The calculus in the right kidney presently measures 3.3 mm. This has decreased in size. Hepatomegaly. There are calcified phleboliths in the pelvis. Degenerative changes of the symphysis pubis and lower lumbar spine. RAD/Abdomen Single View IMPRESSION: Decreased size of the right renal calculus. Electronically Signed: Elijah Gill MD at 13:29 EDT ,
[2024-03-26] MEDS: Lactated Ringers 1,000 ML 15 ML IV (12:52)
--- NOTE | 2024-03-26 13:04 | PCM.HP.STD ---
HPI - General General Date of Service: 03/26/24 Chief Complaint: Right kidney stone HPI Narrative SIN MARSHALL, is a 64 F who presents right shockwave lithotripsy [facility] Medical History Abdominal pain Acid reflux Anemia Anxiety Arthritis Back pain Constipation CPAP (continuous positive airway pressure) dependence Depression Diabetes Diarrhea Diverticulitis Emphysema, unspecified Former smoker High cholesterol History of diverticulitis History of hiatal hernia History of steroid therapy History of stress test Hypothyroid IBS (irritable bowel syndrome) Lipidemia Migraine headache Nausea and vomiting Post-menopausal Shortness of breath on exertion Sleep apnea SOB (shortness of breath) Stroke Thyroid disease TIA (transient ischemic attack) Wears glasses Wears hearing aid Home Medications aripiprazole 10 mg tablet 15 mg PO DAILY 10/01/16 [History Last Taken 03/26/24 05:00] duloxetine 60 mg capsule,delayed release 30 mg PO DAILY 10/01/16 [History Last Taken 03/26/24 05:00] rosuvastatin 40 mg tablet 40 mg PO QHS 10/01/16 [History Last Taken Unknown] pantoprazole 40 mg tablet,delayed release 40 mg PO BID 11/29/17 [History Last Taken 03/26/24 05:00] albuterol sulfate 90 mcg/actuation aerosol inhaler 2 puff inhalation Q4H PRN PRN Wheezing 06/04/19 [History Last Taken 03/26/24 05:00] lactase 3,000 unit tablet 3,000 unit PO TIDCM 06/04/19 [History Last Taken Unknown] fenofibrate 54 mg tablet 54 mg PO DAILY 06/14/19 [History Last Taken Unknown] levothyroxine 137 mcg tablet 137 mcg PO MOTUWETHFRSA 12/16/20 [History Last Taken 03/26/24 05:00] cyanocobalamin (vitamin B-12) 1,000 mcg tablet 1,000 mcg PO DAILY 11/24/22 [History Last Taken Unknown] ergocalciferol (vitamin D2) 1,250 mcg (50,000 unit) capsule 1,250 mcg PO TU 11/24/22 [History Last Taken Unknown] ezetimibe 10 mg tablet 10 mg PO QHS 11/24/22 [History Last Taken Unknown] gabapentin 400 mg capsule 400 mg PO QHS 11/24/22 [History Last Taken Unknown] levothyroxine 137 mcg tablet 68.5 mcg PO CARMEN 11/24/22 [History Last Taken Unknown] metformin 500 mg tablet,extended release 24 hr 500 mg PO DAILY 11/24/22 [History Last Taken Unknown] amitriptyline 25 mg tablet 25 mg PO QHS 07/26/23 [History Last Taken Unknown] aspirin 81 mg tablet,delayed release (Adult Aspirin Regimen) 81 mg PO DAILY 07/26/23 [History Last Taken 01/29/24] buspirone 10 mg tablet 10 mg PO DAILY PRN mental health 07/26/23 [History Last Taken Unknown] plecanatide 3 mg tablet (Trulance) 3 mg PO DAILY 07/26/23 [History Last Taken Unknown] rimegepant 75 mg disintegrating tablet (Nurtec ODT) 75 mg PO DAILY PRN . 07/26/23 [History Last Taken Unknown] ropinirole 1 mg tablet 1 mg PO QHS 07/26/23 [History Last Taken Unknown] tizanidine 4 mg tablet 4 mg PO TID PRN . 07/26/23 [History Last Taken Unknown] acetaminophen 650 mg tablet,extended release (8 Hour Pain Reliever) 650 mg PO Q12H PRN pain 02/05/24 [History Last Taken Unknown] ondansetron 4 mg disintegrating tablet 4 mg PO Q6H PRN PRN Nausea #20 tabs 03/11/24 [Rx Last Taken 03/26/24 05:00] oxycodone-acetaminophen 5 mg-325 mg tablet 1 tab PO Q6H PRN PRN Pain 3 days #12 TABLETS 03/11/24 [Rx Last Taken Unknown] fremanezumab-vfrm 225 mg/1.5 mL subcutaneous syringe (Ajovy Syringe) 225 mg subcut QMONTH 03/17/24 [History Last Taken Unknown] Allergy/AdvReac Type Severity Reaction Status Date / Time divalproex sodium Allergy Severe Nausea/Vom/ Verified 03/26/24 12:25 [From Depakote] Diarrhea metronidazole [From Flagyl] Allergy Nausea/Vom/ Verified 03/26/24 12:25 Diarrhea ibuprofen AdvReac Severe Nausea/Vom/ Verified 03/26/24 12:25 Diarrhea benztropine [From Cogentin] AdvReac Other Verified 03/26/24 12:25 esomeprazole [From Nexium] AdvReac Nausea Verified 03/26/24 12:25 oxybutynin [From Ditropan] AdvReac Nausea/Vom/ Verified 03/26/24 12:25 Diarrhea Surgical History history bladder sling history left ulnar nerve repair History of arthroscopy of left knee History of esophagogastroduodenoscopy (EGD) Hx of arthroscopic knee surgery Hx of colonoscopy Hx of tonsillectomy Social History Smoking Status: Former smoker alcohol intake: never substance use type: does not use Vital Signs Vital Signs Vital Signs: 03/26/24 12:32 03/26/24 12:32 Temperature 98.1 F Temperature Source Temporal Pulse Rate 76 Respiratory Rate 16 Respiratory Pattern Normal Blood Pressure 132/79 H Blood Pressure Mean 96 Blood Pressure Source Monitor Blood Pressure Position Semi-Fowlers Blood Pressure Location Right Arm Pulse Ox 100 Oxygen Delivery Method Room Air Weight Weight: 84.2 kg Body Mass Index (BMI) 32.8
--- NOTE | 2024-03-26 13:05 | DCINST_ITS ---
Discharge Instructions Diet Discharge Diet: No restrictions Activity Discharge Activity: Return to Normal Activity and May Not Drive (while taking narcotic pain medications.) Dressing / Incision Call your doctor if you observe: Fever of 101 or Higher Follow Up Care Please Follow Up With: Carter Greer MD When: Call [phone] for an appointment Test Results: Test results from this visit will be discussed in further detail at your follow- up appointment, if applicable. Discharge Plan Admission Primary Reason for Your Visit: Right kidney stone Attending Provider: Carter Greer Primary Care Provider: Kyle Monterroso Discharge Orders/Prescriptions Prescriptions: Continued fenofibrate 54 mg tablet 54 mg PO DAILY aripiprazole 10 MG tablet 15 mg PO DAILY rosuvastatin 40 MG tablet 40 mg PO QHS duloxetine 60 MG capsule 30 mg PO DAILY pantoprazole 40 MG tablet 40 mg PO BID lactase 3,000 UNIT tablet 3,000 unit PO TIDCM albuterol sulfate 1 INHALER inhaler 2 puff inhalation Q4H PRN PRN (Reason: Wheezing) levothyroxine 137 MCG tablet 137 mcg PO MOTUWETHFRSA levothyroxine 137 mcg tablet 68.5 mcg PO CARMEN Patient Comments: TAKE 1 TABLET BY MOUTH ONCE DAILY FRIDAY-FRIDAY AND 2 TABLETS ON FRIDAY metformin 500 mg tablet extended release 24 hr 500 mg PO DAILY Patient Comments: TAKE 1 TABLET BY MOUTH ONCE DAILY WITH BREAKFAST gabapentin 400 mg Capsule 400 mg PO QHS Patient Comments: PT REPORTS TAKING 400MG 1 TIME A DAY Rx Instructions: PT REPORTS TAKING 400 MG 1 TIME PER DAY cyanocobalamin (vitamin B-12) 1,000 mcg tablet 1,000 mcg PO DAILY Patient Comments: TAKE 1 TABLET BY MOUTH ONCE DAILY ergocalciferol (vitamin D2) 1,250 mcg (50,000 unit) capsule 1,250 mcg PO Patient Comments: TAKE 1 CAPSULE BY MOUTH ONCE A WEEK () ezetimibe 10 mg tablet 10 mg PO QHS Patient Comments: TAKE 1 TABLET BY MOUTH ONCE DAILY ropinirole 1 mg tablet 1 mg PO QHS Patient Comments: TAKE 1 TABLET BY MOUTH BEFORE BEDTIME buspirone 10 mg tablet 10 mg PO DAILY PRN (Reason: mental health) Patient Comments: TAKE 1 TABLET BY MOUTH ONCE DAILY NEEDED Trulance 3 mg tablet 3 mg PO DAILY tizanidine 4 mg tablet 4 mg PO TID PRN Patient Comments: TAKE 1 TABLET BY MOUTH UP TO THREE TIMES DAILY NEEDED FOR PAINFUL MUSCLE SPASMS Nurtec ODT 75 mg tablet,disintegrating 75 mg PO DAILY PRN Patient Comments: DISSOLVE 1 TABLET BY MOUTH ONCE DAILY NEEDED amitriptyline 25 mg tablet 25 mg PO QHS Patient Comments: TAKE 1 TABLET BY MOUTH ONCE DAILY AT BEDTIME aspirin [Adult Aspirin Regimen] 81 mg tablet,delayed release (DR/EC) 81 mg PO DAILY Ajovy Syringe 225 mg/1.5 mL syringe 225 mg subcut QMONTH oxycodone-acetaminophen 5-325 mg tablet 1 tab PO Q6H PRN PRN (Reason: Pain) 3 Days Qty: 12 0RF ondansetron 4 mg tablet,disintegrating 4 mg PO Q6H PRN PRN (Reason: Nausea) Qty: 20 0RF acetaminophen [8 Hour Pain Reliever] 650 mg tablet extended release 650 mg PO Q12H PRN (Reason: pain) Referrals / Follow Up: Kyle Monterroso MD [Primary Care Provider] - Carter Greer MD [Med Staff - Active Staff] - Disposition Disposition (needs filled in before D/C Order can be placed): Home, Self Care
[2024-03-26] MEDS: Cefazolin 2 GM in 0.9% Normal Saline (100mL Bag) 100 ML IV (13:25)
--- NOTE | 2024-03-26 14:01 | OP.PCM_ITS ---
Report of Operation Date of Procedure: 03/26/24 Pre-Operative Diagnosis: Right kidney stone Post-Operative Diagnosis: Right kidney stone Surgery/Procedure Performed:: Right extracorporeal shockwave lithotripsy Description of Surgical Findings:: Patient presents to the hospital for treatment of a kidney stone with shockwave lithotripsy. In the preoperative area and x-ray was done to confirm the location of the stone. The x-ray was reviewed and the stone location was reviewed. In the preoperative setting I spoke with the patient regarding the treatment of the stone how the treatment would be conducted and the expectations after surgery. The patient understands there is a risk of bleeding and infection. Also discussed the very rare risk of hematoma or damage to the kidney. We also discussed the risk that the shockwave machine will fail to break the stone adequately and that the patient may need other surgical procedures. I also discussed the possibility that the patient may need a stent after the procedure. After reviewing the procedure with the patient, the patient is signed the consent form all the patient's questions were addressed and was taken back to the operating room for treatment of a kidney stone. Patient was taken back to the operating room, the patient was identified by the nursing staff, I identified the side of the treatment and the patient side of treatment had been marked by my initials. The patient underwent general anesthetic and was placed supine on the lithotripter table. I then used fluoroscopy to identify the stone on the right side. I then positioned the patient under the lithotripter and I used triangulation technique to identify the location of the stone and then I made sure that the stone was engaged in the F2 focal point of F2 Donier lithoprior machine. Once the patient was positioned appropriately and the stone was identified and placed in the F2 focal point of the lithotripter machine I then proceeded with shockwave lithotripsy. In the beginning the shockwave was delivered at a rate of 90 shocks per minute, anesthesia monitored the EKG for any ectopy. The power was slowly increased to 5 kV and subsequently at the 7 kV. I then proceeded with the treatment with shock wave therapy and around during the treatment to make sure the stone stayed in the F2 focal point during the entire treatment and after 3000 shockwaves were delivered to the stone under fluoroscopic guidance the treatment was completed. The patient was given instructions to call the office to make an a follow-up appointment with an xray to evaluate the success of the treatment, pateint und erstands that its possible the stones may need another procedure.At this point the patient's anesthetic was reversed patient was extubated and taken back to the PACU in stable condition. Surgeon: Carter Greer Type of Anesthesia: General Drains: none Admit VTE Documentation VTE Present on Admission: No VTE Mechan Device Prophylaxis: SCD's VTE Pharm Prophylaxis ordered?: No
[2024-03-26 14:08] LABS: Bedside Glucose 99 mg/dL (74-106)
[2024-03-26 14:37] LABS: Bedside Glucose 92 mg/dL (74-106)
== END 2024-03-26 15:09 | disposition home or self-care (01) ==
LOC: SDC 11:45 → AC 11:46
PROVIDERS: PCP Family Medicine; Referring Provider Urology; Visit Provider Urology
PROC: (CPT 50590; principal; 2024-03-26 13:30)
DX: N20.0 Calculus of kidney (principal); J43.9 Emphysema, unspecified; E11.9 Type 2 diabetes mellitus without complications; Z87.891 Personal history of nicotine dependence; E78.00 Pure hypercholesterolemia, unspecified; K21.9 Gastro-esophageal reflux disease without esophagitis; Z79.899 Other long term (current) drug therapy; E03.9 Hypothyroidism, unspecified; Z79.890 Hormone replacement therapy; Z79.82 Long term (current) use of aspirin; Z79.84 Long term (current) use of oral hypoglycemic drugs
CPT/HCPCS: 50590; 00873; 74018; 82962; J7120; J2405

== ENCOUNTER 2024-04-17 12:52 | Emergency (ER) | payer MEDICAID, SELFPAY ==
[2024-04-17 12:53] VITALS: BP 125/74; PULSE 77; RESP 16; TEMP 36.6; O2SAT 98; BMI 32.9
--- NOTE | 2024-04-17 13:07 | EDS_ITS ---
HPI <KENDRICK Dominguez - Last Filed: 04/17/24 14:28> History of Present Illness Chief Complaint: Headache Narrative Narrative: Patient is a 64-year-old female with history of depression, hypothyroidism, chronic neck pain, migraine headaches who presents to the emergency department for a migraine-like headache. Patient dates she was on Nurtec for 6 months to 1 year, she states that it was improving her headaches. She has not been to the ER in the last year for any migraine headaches. Patient states that she was not given a refill, and is now here with a migraine. Patient that she woke up with a left-sided headache. She states she has headaches sometimes every day that comes from her neck. However today the headache was worse, she got much more sick to her stomach however did not vomit. She denies any fever or chills. Denies any history of IV drug abuse. PFS <KENDRICK Dominguez - Last Filed: 04/17/24 14:28> [facility] Medical History Abdominal pain Acid reflux Anemia Anxiety Arthritis Back pain Constipation CPAP (continuous positive airway pressure) dependence Depression Diabetes Diarrhea Diverticulitis Emphysema, unspecified Former smoker High cholesterol History of diverticulitis History of hiatal hernia History of steroid therapy History of stress test Hypothyroid IBS (irritable bowel syndrome) Lipidemia Migraine headache Nausea and vomiting Post-menopausal Shortness of breath on exertion Sleep apnea SOB (shortness of breath) Stroke Thyroid disease TIA (transient ischemic attack) Wears glasses Wears hearing aid Home Medications ?Medication ?Instructions ?Recorded ?Last Taken ?Type aripiprazole 10 mg tablet 15 mg PO DAILY 10/01/16 03/26/24 05:00 History duloxetine 60 mg capsule,delayed 30 mg PO DAILY 10/01/16 03/26/24 05:00 History release rosuvastatin 40 mg tablet 40 mg PO QHS 10/01/16 Unknown History pantoprazole 40 mg tablet,delayed 40 mg PO BID 11/29/17 03/26/24 05:00 History release albuterol sulfate 90 mcg/actuation 2 puff inhalation Q4H PRN PRN 06/04/19 03/26/24 05:00 History aerosol inhaler Wheezing lactase 3,000 unit tablet 3,000 unit PO TIDCM 06/04/19 Unknown History fenofibrate 54 mg tablet 54 mg PO DAILY 06/14/19 Unknown History levothyroxine 137 mcg tablet 137 mcg PO MOTUWETHFRSA 12/16/20 03/26/24 05:00 History cyanocobalamin (vitamin B-12) 1,000 mcg PO DAILY 11/24/22 Unknown History 1,000 mcg tablet ergocalciferol (vitamin D2) 1,250 1,250 mcg PO TU 11/24/22 Unknown History mcg (50,000 unit) capsule ezetimibe 10 mg tablet 10 mg PO QHS 11/24/22 Unknown History gabapentin 400 mg capsule 400 mg PO QHS 11/24/22 Unknown History levothyroxine 137 mcg tablet 68.5 mcg PO CARMEN 11/24/22 Unknown History metformin 500 mg tablet,extended 500 mg PO DAILY 11/24/22 Unknown History release 24 hr amitriptyline 25 mg tablet 25 mg PO QHS 07/26/23 Unknown History aspirin 81 mg tablet,delayed 81 mg PO DAILY 07/26/23 01/29/24 History release (Adult Aspirin Regimen) buspirone 10 mg tablet 10 mg PO DAILY PRN mental health 07/26/23 Unknown History plecanatide 3 mg tablet (Trulance) 3 mg PO DAILY 07/26/23 Unknown History rimegepant 75 mg disintegrating 75 mg PO DAILY PRN . 07/26/23 Unknown History tablet (Nurtec ODT) ropinirole 1 mg tablet 1 mg PO QHS 07/26/23 Unknown History tizanidine 4 mg tablet 4 mg PO TID PRN . 07/26/23 Unknown History acetaminophen 650 mg 650 mg PO Q12H PRN pain 02/05/24 Unknown History tablet,extended release (8 Hour Pain Reliever) ondansetron 4 mg disintegrating 4 mg PO Q6H PRN PRN Nausea #20 tabs 03/11/24 03/26/24 05:00 Rx tablet oxycodone-acetaminophen 5 mg-325 1 tab PO Q6H PRN PRN Pain 3 days 03/11/24 Unknown Rx mg tablet #12 TABLETS fremanezumab-vfrm 225 mg/1.5 mL 225 mg subcut QMONTH 03/17/24 Unknown History subcutaneous syringe (Ajovy Syringe) Allergy/AdvReac Type Severity Reaction Status Date / Time divalproex sodium (From Allergy Severe Nausea/Vom/ Verified 04/17/24 12:53 Depakote) Diarrhea metronidazole (From Flagyl) Allergy Nausea/Vom/ Verified 04/17/24 12:53 Diarrhea ibuprofen AdvReac Severe Nausea/Vom/ Verified 04/17/24 12:53 Diarrhea benztropine (From Cogentin) AdvReac Other Verified 04/17/24 12:53 esomeprazole (From Nexium) AdvReac Nausea Verified 04/17/24 12:53 oxybutynin (From Ditropan) AdvReac Nausea/Vom/ Verified 04/17/24 12:53 Diarrhea Surgical History history bladder sling history left ulnar nerve repair History of arthroscopy of left knee History of esophagogastroduodenoscopy (EGD) Hx of arthroscopic knee surgery Hx of colonoscopy Hx of tonsillectomy Social History Smoking Status: Former smoker alcohol intake: never substance use type: does not use ROS <KENDRICK Dominguez - Last Filed: 04/17/24 14:28> ROS ED ROS Narrative Constitutional: Negative for fever, chills, weight loss, weakness Eyes: Negative for vision loss, vision change, double vision ENT: Negative for any sore throat, ear pain, congestion Cardiovascular: Negative for any chest pain, tightness, palpitations Respiratory: Negative for any cough, sputum production, hemoptysis, dyspnea, dyspnea on exertion, orthopnea Gastrointestinal: Negative for any abdominal pain, vomiting, diarrhea, constipation, blood in stool, blood in vomit. : Negative for any urinary frequency, dysuria, retention, blood in urine Muscle skeletal: Negative for any neck pain, back pain Neurological: Negative for any syncope, dizziness. Positive for headache Skin: Negative for any rashes, itching, abrasions, lacerations Psychiatric: Negative for any depression, anxiety, stress, suicidal ideation, homicidal ideation Hematologic: Negative for any excessive bruising, easy bleeding EXAM <CARLEE DominguezC - Last Filed: 04/17/24 14:28> Physical Exam Narrative Exam Narrative: Vital signs reviewed. HEET: Head normocephalic atraumatic, TMs clear bilaterally. Posterior pharynx is clear, moist mucous membranes. Nares clear bilaterally. Patient does have positive photophobia, Neck: Supple with no lymphadenopathy or tenderness. No signs of meningismus. Cardiac: Regular rate and rhythm no murmurs gallops or rubs, equal peripheral pulses bilaterally. Respiratory: Lungs clear to auscultation bilaterally. No chest tenderness. Abdomen: Soft, nontender, nondistended. No abdominal bruit or pulsatile masses. No hepatosplenomegaly Extremities: No peripheral edema, no signs of gross trauma or deformity. Active full range of motion of all extremities. Neuro: Cranial nerves II through XII intact, no focal neurological deficits. NIH will scale 0 Skin: Clean dry and intact with no rash, purpura, petechiae, vesicles or pus tules. Backs/flank: No CVA tenderness, no midline spinal tenderness, no deformity. Psych: Normal mood and affect. No SI, HI or acute psychosis. Const Vital Signs: 04/17/24 12:53 04/17/24 13:52 Temperature 97.8 F 97.6 F L Temperature Source Temporal Pulse Rate 77 64 Respiratory Rate 16 18 Blood Pressure 125/74 H 136/76 H Blood Pressure Mean 91 96 Pulse Ox 98 99 Oxygen Delivery Method Room Air <Dr. Nikunj Carpenter DO - Last Filed: 04/17/24 14:32> Physical Exam Const Vital Signs: 04/17/24 12:53 04/17/24 13:52 Temperature 97.8 F 97.6 F L Temperature Source Temporal Pulse Rate 77 64 Respiratory Rate 16 18 Blood Pressure 125/74 H 136/76 H Blood Pressure Mean 91 96 Pulse Ox 98 99 Oxygen Delivery Method Room Air [facility] <KENDRICK Dominguez - Last Filed: 04/17/24 14:28> [facility] Lab Data Labs: Laboratory Results - last 24 hr 04/17/24 13:30 WBC 6.9 RBC 4.10 L Hgb 11.5 L Hct 37.3 MCV 91.0 MCH 28.0 MCHC 30.8 L RDW Std Deviation 45.3 H RDW Coeff of Cortes 13.6 Plt Count 321 MPV 10.4 Immature Gran % (Auto) 0.100 Neut % (Auto) 53.6 Lymph % (Auto) 36.4 Tate % (Auto) 8.2 Eos % (Auto) 1.3 Baso % (Auto) 0.4 Absolute Neuts (auto) 3.7 Absolute Lymphs (auto) 2.52 Nucleated RBC % 0 Sodium 139 Potassium 3.9 Chloride 102 Carbon Dioxide 30.0 Anion Gap 7 BUN 21 H Creatinine 0.91 Estim Creat Clear Calc 62.60 Est GFR (MDRD) Af Amer 80 Est GFR (MDRD) Non-Af 66 BUN/Creatinine Ratio 23.2 H Glucose 100 Calcium 9.7 Treatment and Re-Evaluation :: Differential diagnosis includes however is not limited to: Thunderclap headache, meningitis, migraine headache, tension headache, cluster headache Patient appears to be in no obvious respiratory distress, vital signs are stable, patient does appear uncomfortable. Patient presents to the emerged part with complaints of headache that been ongoing since this morning. History of migraines. Recently taken off her migraine medication. Patient received basic laboratory values CBC BMP, patient received IV fluids, patient has had the migr anamika cocktail before. Patient received IV fluids Reglan, Toradol, Benadryl. Patient will be reevaluated. On reevaluation, patient was able to have her sunglasses. Patient able to rest. Patient states that her headache has decreased in intensity. At this time, patient will contact her PCP and get placed on her migraine medication. She is agreeable with the plan. I do not believe that any advanced imaging is needed, as patient has chronic migraines. She instructed return for any worsening symptoms. Patient happy the plan of care and stable for discharge. <Dr. Nikunj Carpenter, DO - Last Filed: 04/17/24 14:32> [facility] Narrative Medical decision making narrative: This patient was seen with a PA/CORE WORKER Individually assessed they patient including history and physical. I have reviewed everything on the chart that is available and agree with the documentation provided by the PA/CORE WORKER including discussion about the assessment, treatment plan, discussion, and return precautions. Patient seen today for headache. She feels as a typical migraine. Previously on Nurtec however per nurse practitioner told her she did not need it anymore and now she is here with a migraine. She is felt she has been well-controlled for the last year. Patient states that she was seen within the last several months and had a prescription for this but the nurse practitioner called and canceled it. She is not sure why. The pharmacy told her this. She called the doctor's office to see if she can get her medications in the nurse who is triaging her recommended she go to the emergency room for her chronic migraines. Patient was medicated with Reglan, Benadryl, Toradol. She felt better after reevaluation. Lab work all reassuring. Discharged home in stable condition. Impression: 1. Migraine Lab Data Labs: Laboratory Results - last 24 hr 04/17/24 13:30 WBC 6.9 RBC 4.10 L Hgb 11.5 L Hct 37.3 MCV 91.0 MCH 28.0 MCHC 30.8 L RDW Std Deviation 45.3 H RDW Coeff of Cortes 13.6 Plt Count 321 MPV 10.4 Immature Gran % (Auto) 0.100 Neut % (Auto) 53.6 Lymph % (Auto) 36.4 Tate % (Auto) 8.2 Eos % (Auto) 1.3 Baso % (Auto) 0.4 Absolute Neuts (auto) 3.7 Absolute Lymphs (auto) 2.52 Nucleated RBC % 0 Sodium 139 Potassium 3.9 Chloride 102 Carbon Dioxide 30.0 Anion Gap 7 BUN 21 H Creatinine 0.91 Estim Creat Clear Calc 62.60 Est GFR (MDRD) Af Amer 80 Est GFR (MDRD) Non-Af 66 BUN/Creatinine Ratio 23.2 H Glucose 100 Calcium 9.7 Discharge Plan Triage Chief Complaint: Headache ED Midlevel Provider: Raul Mazariegos ED Provider: Nikunj Carpenter Dx/Rx/DC Orders Clinical Impression: Migraine Instructions: ED, Migraine (Classical) Prescriptions: No Action fenofibrate 54 mg tablet 54 mg PO DAILY aripiprazole 10 MG tablet 15 mg PO DAILY rosuvastatin 40 MG tablet 40 mg PO QHS duloxetine 60 MG capsule 30 mg PO DAILY pantoprazole 40 MG tablet 40 mg PO BID lactase 3,000 UNIT tablet 3,000 unit PO TIDCM albuterol sulfate 1 INHALER inhaler 2 puff inhalation Q4H PRN PRN (Reason: Wheezing) levothyroxine 137 MCG tablet 137 mcg PO MOTUWETHFRSA levothyroxine 137 mcg tablet 68.5 mcg PO CARMEN Patient Comments: TAKE 1 TABLET BY MOUTH ONCE DAILY FRIDAY-FRIDAY AND 2 TABLETS ON FRIDAY metformin 500 mg tablet extended release 24 hr 500 mg PO DAILY Patient Comments: TAKE 1 TABLET BY MOUTH ONCE DAILY WITH BREAKFAST gabapentin 400 mg Capsule 400 mg PO QHS Patient Comments: PT REPORTS TAKING 400MG 1 TIME A DAY Rx Instructions: PT REPORTS TAKING 400 MG 1 TIME PER DAY cyanocobalamin (vitamin B-12) 1,000 mcg tablet 1,000 mcg PO DAILY Patient Comments: TAKE 1 TABLET BY MOUTH ONCE DAILY ergocalciferol (vitamin D2) 1,250 mcg (50,000 unit) capsule 1,250 mcg PO Patient Comments: TAKE 1 CAPSULE BY MOUTH ONCE A WEEK () ezetimibe 10 mg tablet 10 mg PO QHS Patient Comments: TAKE 1 TABLET BY MOUTH ONCE DAILY ropinirole 1 mg tablet 1 mg PO QHS Patient Comments: TAKE 1 TABLET BY MOUTH BEFORE BEDTIME buspirone 10 mg tablet 10 mg PO DAILY PRN (Reason: mental health) Patient Comments: TAKE 1 TABLET BY MOUTH ONCE DAILY NEEDED Trulance 3 mg tablet 3 mg PO DAILY tizanidine 4 mg tablet 4 mg PO TID PRN Patient Comments: TAKE 1 TABLET BY MOUTH UP TO THREE TIMES DAILY NEEDED FOR PAINFUL MUSCLE SPASMS Nurtec ODT 75 mg tablet,disintegrating 75 mg PO DAILY PRN Patient Comments: DISSOLVE 1 TABLET BY MOUTH ONCE DAILY NEEDED amitriptyline 25 mg tablet 25 mg PO QHS Patient Comments: TAKE 1 TABLET BY MOUTH ONCE DAILY AT BEDTIME aspirin [Adult Aspirin Regimen] 81 mg tablet,delayed release (DR/EC) 81 mg PO DAILY Ajovy Syringe 225 mg/1.5 mL syringe 225 mg subcut QMONTH oxycodone-acetaminophen 5-325 mg tablet 1 tab PO Q6H PRN PRN (Reason: Pain) 3 Days Qty: 12 0RF ondansetron 4 mg tablet,disintegrating 4 mg PO Q6H PRN PRN (Reason: Nausea) Qty: 20 0RF acetaminophen [8 Hour Pain Reliever] 650 mg tablet extended release 650 mg PO Q12H PRN (Reason: pain) Primary Care Provider: Kyle Monterroso Referrals: Kyle Monterroso MD [Primary Care Provider] - Activity Restrictions/Additional Instructions: Please follow-up outpatient. Print Language: Georgian Disposition Disposition: Home, Self Care Discharge Date/Time: 04/17/24 14:22
[2024-04-17] MEDS: 0.9% Normal Saline (1000mL) 1,000 ML 999 ML IV (13:15)
[2024-04-17] MEDS: Ketorolac 15 MG/ML Vial IV (13:15)
[2024-04-17] MEDS: DiphenhydrAMINE 50 MG/ML Syringe 25 MG IV (13:15)
[2024-04-17] MEDS: Metoclopramide 10 MG/2 ML Vial IV (13:16)
[2024-04-17 13:40] LABS: Absolute Lymphocyte Count 2.52 X10^3/uL (0.83-4.51); Absolute Neutrophil Count 3.7 X10^3/uL (2.0-7.7); Basophil# 0.03 X10^3/uL; Basophil% 0.4 % (0-1); Eosinophil# 0.09 X10^3/uL; Eosinophils% 1.3 % (0-5); Hematocrit 37.3 % (37-47); Hemoglobin 11.5 g/dL (12.0-15.0); Lymphocyte # 2.52 X10^3/ul (0.83-4.51); Lymphocyte % 36.4 % (19-41); Mean Corp Hgb Conc 30.8 g/dL (32-36); Mean Platelet Vol. 10.4 fl (6.2-12.0); Monocyte# 0.57 X10^3/uL; Monocyte% 8.2 % (0-10); NRBC Flagged by Analyzer 0 % (0-5); Neutrophil # 3.71 X10^3/uL (2.7-7.7); Neutrophil % 53.6 % (47-70); Platelet Count 321 K/mm3 (150-450); RBC Distribution Width CV 13.6 % (11.6-14.6); RBC Distribution Width SD 45.3 fl (35.1-43.9); White Blood Count 6.9 K/mm3 (4.4-11.0)
[2024-04-17 13:52] VITALS: BP 136/76; PULSE 64; RESP 18; TEMP 36.4; O2SAT 99
[2024-04-17 13:52] LABS: Anion Gap 7 (5-15); BUN 21 mg/dL (7-18); BUN/Creat Ratio 23.2 RATIO (10-20); Calcium,Total 9.7 mg/dL (8.5-10.1); Chloride 102 mmol/L (98-107); Creatinine, Serum 0.91 mg/dL (0.55-1.02); EST Glomerular Filtration Rate 66 mL/min (>60); Est Glom Filt Rate - Afr Amer 80 mL/min (>60); Glucose 100 mg/dL (74-106); Potassium 3.9 mmol/L (3.5-5.1); Sodium Level 139 mmol/L (136-145)
== END 2024-04-17 14:22 | disposition home or self-care (01) ==
PROVIDERS: Nurse Practitioner; Emergency Provider Student in an Organized Health Care Education/Training Program; PCP Family Medicine; Visit Provider Student in an Organized Health Care Education/Training Program
DX: G43.909 Migraine, unspecified, not intractable, without status migrainosus (principal); E11.9 Type 2 diabetes mellitus without complications; Z87.891 Personal history of nicotine dependence; F32.A Depression, unspecified; E03.9 Hypothyroidism, unspecified; K21.9 Gastro-esophageal reflux disease without esophagitis; E78.00 Pure hypercholesterolemia, unspecified; Z79.899 Other long term (current) drug therapy
CPT/HCPCS: 80048; 85025; 96361; 99282; A4216

== ENCOUNTER → 2024-07-20 | Outpatient (CLI) | payer MEDICARE, MEDICAID, SELFPAY ==
--- NOTE | 2024-07-20 13:52 | EKG12_ITS ---
Test Reason : PRE OP Blood Pressure : / mmHG Vent. Rate : 079 BPM Atrial Rate : 079 BPM P-R Int : 156 ms QRS Dur : 082 ms QT Int : 374 ms P-R-T Axes : 075 007 052 degrees QTc Int : 428 ms Normal sinus rhythm Low voltage QRS Borderline ECG Confirmed by INDIGO MUIR, RIO ([id number]), editorial manager FILEMON FAROOQ ([id number]) on 07/21/2024 7:01:27 AM Referred By: Arben Durham Confirmed By:RIO SOOD MD
[2024-07-20 14:51] LABS: Hematocrit 38.4 % (37-47); Mean Corp Hgb Conc 31.3 g/dL (32-36); Mean Corpuscular Hgb 27.8 pg (27.0-32.0); Mean Corpuscular Volume 89.1 fL (81-99); Mean Platelet Vol. 10.6 fl (6.2-12.0); Platelet Count 313 K/mm3 (150-450); RBC Distribution Width SD 45.4 fl (35.1-43.9); Red Blood Count 4.31 M/mm3 (4.2-5.4); White Blood Count 7.3 K/mm3 (4.4-11.0)
[2024-07-20 15:09] LABS: Anion Gap 6 (5-15); BUN 26 mg/dL (7-18); Chloride 105 mmol/L (98-107); Creatinine, Serum 1.04 mg/dL (0.55-1.02); EST Glomerular Filtration Rate 56 mL/min (>60); Est Glom Filt Rate - Afr Amer 68 mL/min (>60); Glucose 115 mg/dL (74-106); Potassium 3.6 mmol/L (3.5-5.1); Sodium Level 140 mmol/L (136-145)
== END | disposition home or self-care (01) ==
LOC: PSN 13:47
PROVIDERS: PCP Family Medicine; Referring Provider Otolaryngology; Visit Provider Otolaryngology
DX: Z01.818 Encounter for other preprocedural examination (principal)
CPT/HCPCS: 36415; 80048; 85027; 93005

== ENCOUNTER → 2024-07-27 | Outpatient (CLI) | payer MEDICARE, MEDICAID, SELFPAY ==
--- NOTE | 2024-07-26 | TISS_PTH ---
PATIENT: SIN MARSHALL LOC: [facility] U#:[id number] AGE/SX: 64/F ROOM: RE07/27/[address]: Dr. Arben Durham MD : 1960 BED: DIS: 07/27/2024 SPEC #: [id number] RECD: 07/27/24 15:06 STATUS: SERA SHERRY #: [id number] KRISTIN: 07/26/24 00:[address]: Arben Durham DEPT: SURGICAL PATHOLOGY RECD BY: Maryellen Jacques ENTERED: 07/28/24 08:01 SP TYPE: Tissue Bx JONATHAN DR: Dr. 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 Acanthosis, hyperkeratosis and parakeratosis. Negative for malignancy. See comment. 07/29/2024 COMMENT The specimen consists of superficial portion of the lesion. If there is a high suspicion for malignancy, re-biopsy is suggested, if clinically indicated. Special stain for fungi is negative for organisms; matched controls is appropriate. Case has been reviewed in consultation with Dr. Torres who concurs with the above diagnosis. IDC:AM MICROSCOPIC DESCRIPTION Slides are reviewed. GROSS DESCRIPTION Received in fixative is one container labeled with the patient's name and designated Gingival neoplasm. The specimen consists of a piece of ornelas mucosal tissue measuring 0.5 x 0.4 x 0.1cm. The specimen is inked, bisected and submitted in one cassette.DANIEL/ 07/28/2024 TC:2 CPT:71907,09097
== END | disposition home or self-care (01) ==
LOC: LABSPEC 15:37
PROVIDERS: PCP Family Medicine; Referring Provider Otolaryngology; Visit Provider Otolaryngology
DX: L83 Acanthosis nigricans (principal); K06.8 Other specified disorders of gingiva and edentulous alveolar ridge; K12.1 Other forms of stomatitis
CPT/HCPCS: 88305; 88312

== ENCOUNTER 2025-02-04 16:03 | Emergency (ER) | payer MEDICAID, MEDICARE, SELFPAY ==
[2025-02-04 16:03] VITALS: BP 130/73; PULSE 86; RESP 14; TEMP 36.6; O2SAT 98
[2025-02-04 16:07] VITALS: BMI 35.6
[2025-02-04 16:13] VITALS: BMI 35.6
[2025-02-04 17:12] VITALS: BP 119/67; PULSE 83; RESP 21; O2SAT 94
[2025-02-04 17:26] LABS: Absolute Lymphocyte Count 3.28 X10^3/uL (0.83-4.51); Absolute Neutrophil Count 2.6 X10^3/uL (2.0-7.7); Basophil# 0.04 X10^3/uL; Basophil% 0.6 % (0-1); Eosinophil# 0.07 X10^3/uL; Hematocrit 37.4 % (37-47); Hemoglobin 11.7 g/dL (12.0-15.0); Lymphocyte # 3.28 X10^3/ul (0.83-4.51); Lymphocyte % 49.2 % (19-41); Mean Corp Hgb Conc 31.3 g/dL (32-36); Mean Corpuscular Hgb 28.5 pg (27.0-32.0); Mean Corpuscular Volume 91.2 fL (81-99); Mean Platelet Vol. 10.3 fl (6.2-12.0); Monocyte# 0.64 X10^3/uL; Monocyte% 9.6 % (0-10); NRBC Flagged by Analyzer 0 % (0-5); Neutrophil # 2.62 X10^3/uL (2.7-7.7); Neutrophil % 39.3 % (47-70); Platelet Count 284 K/mm3 (150-450); RBC Distribution Width CV 14.6 % (11.6-14.6); RBC Distribution Width SD 48.8 fl (35.1-43.9); White Blood Count 6.7 K/mm3 (4.4-11.0)
--- NOTE | 2025-02-04 17:39 | EX.ED.DYSGE1 ---
HPI History of Present Illness Chief Complaint: Neuro S/Sx Detail of Chief Complaint: Intermittent throbbing left temporal area for greater than 2 weeks Informant: patient Onset/Context/Timing Onset: Weeks Context: Sudden Onset Timing: Intermittent and Lasts (Couple of minutes) Quality: Throbbing Location: Left temporal Current Severity: Gone Maximum Severity: Mild Worsened by: Nothing Relieved by: Not applicable Associated Symptoms Associated Symptoms: Photophobia and sonophobia Narrative Narrative: Patient is 64-year-old woman. She has history of migraine headaches, kidney stones, depression and hypothyroidism. She had a televisit with nurse practitioner for neurology at the [facility]. His notes were reviewed. He ordered an MRI nonurgent. Patient presents asking for stat MRI. Patient admits she is not a good informant. She wants an answer to this thumping sensation. She has several episodes per day. They last no longer than 1 to 3 minutes. She denies double vision blurred vision loss of vision. She denies ringing or ears or decreased hearing. She denies trouble with speech or swallowing. She denies paresthesia, anesthesia medics. There is no history of trauma. She denies fever, chills night sweats. She denies rhinorrhea, congestion, postnasal drainage sore throat. She does endorse neck pain and had injections of her neck yesterday. She claims that I caused her pain by holding her ear when I did otoscope exam. She denies radicular pain. Patient denies cardiac or respiratory symptoms. Patient denies abdominal pain, nausea, vomiting has diarrhea intermittently. She denies dysuria, frequency, urgency or hematuria. She has not noted any skin lesions or rash. Prior similar symptoms: Yes Recent Illness/Hospitalization: Yes [facility] Medical History Wears hearing aid Wears glasses Post-menopausal History of steroid therapy Thyroid disease High cholesterol Back pain Migraine headache TIA (transient ischemic attack) Former smoker History of hiatal hernia History of diverticulitis CPAP (continuous positive airway pressure) dependence Emphysema, unspecified Shortness of breath on exertion History of stress test Diabetes IBS (irritable bowel syndrome) Diarrhea Constipation Anemia Acid reflux Nausea and vomiting Abdominal pain SOB (shortness of breath) Sleep apnea Anxiety Stroke Arthritis Lipidemia Depression Hypothyroid Diverticulitis Medical History no medical history Home Medications ?Medication ?Instructions ?Recorded ?Last Taken ?Type aripiprazole 10 mg tablet 15 mg PO DAILY 10/01/16 03/26/24 05:00 History duloxetine 60 mg capsule,delayed 30 mg PO DAILY 10/01/16 03/26/24 05:00 History release rosuvastatin 40 mg tablet 40 mg PO QHS 10/01/16 Unknown History pantoprazole 40 mg tablet,delayed 40 mg PO BID 11/29/17 03/26/24 05:00 History release albuterol sulfate 90 mcg/actuation 2 puff inhalation Q4H PRN PRN 06/04/19 03/26/24 05:00 History aerosol inhaler Wheezing lactase 3,000 unit tablet 3,000 unit PO TIDCM 06/04/19 Unknown History fenofibrate 54 mg tablet 54 mg PO DAILY 06/14/19 Unknown History levothyroxine 137 mcg tablet 137 mcg PO MOTUWETHFRSA 12/16/20 03/26/24 05:00 History cyanocobalamin (vitamin B-12) 1,000 mcg PO DAILY 11/24/22 Unknown History 1,000 mcg tablet ergocalciferol (vitamin D2) 1,250 1,250 mcg PO TU 11/24/22 Unknown History mcg (50,000 unit) capsule ezetimibe 10 mg tablet 10 mg PO QHS 11/24/22 Unknown History gabapentin 400 mg capsule 400 mg PO QHS 11/24/22 Unknown History levothyroxine 137 mcg tablet 68.5 mcg PO CARMEN 11/24/22 Unknown History metformin 500 mg tablet,extended 500 mg PO DAILY 11/24/22 Unknown History release 24 hr amitriptyline 25 mg tablet 25 mg PO QHS 07/26/23 Unknown History aspirin 81 mg tablet,delayed 81 mg PO DAILY 07/26/23 01/29/24 History release (Adult Aspirin Regimen) buspirone 10 mg tablet 10 mg PO DAILY PRN mental health 07/26/23 Unknown History plecanatide 3 mg tablet (Trulance) 3 mg PO DAILY 07/26/23 Unknown History rimegepant 75 mg disintegrating 75 mg PO DAILY PRN . 07/26/23 Unknown History tablet (Nurtec ODT) ropinirole 1 mg tablet 1 mg PO QHS 07/26/23 Unknown History tizanidine 4 mg tablet 4 mg PO TID PRN . 07/26/23 Unknown History acetaminophen 650 mg 650 mg PO Q12H PRN pain 02/05/24 Unknown History tablet,extended release (8 Hour Pain Reliever) ondansetron 4 mg disintegrating 4 mg PO Q6H PRN PRN Nausea #20 tabs 03/11/24 03/26/24 05:00 Rx tablet oxycodone-acetaminophen 5 mg-325 1 tab PO Q6H PRN PRN Pain 3 days 03/11/24 Unknown Rx mg tablet #12 TABLETS fremanezumab-vfrm 225 mg/1.5 mL 225 mg subcut QMONTH 03/17/24 Unknown History subcutaneous syringe (Ajovy Syringe) Allergy/AdvReac Type Severity Reaction Status Date / Time divalproex sodium (From Allergy Severe Nausea/Vom/ Verified 02/04/25 16:04 Depakote) Diarrhea metronidazole (From Flagyl) Allergy Nausea/Vom/ Verified 02/04/25 16:04 Diarrhea ibuprofen AdvReac Severe Nausea/Vom/ Verified 02/04/25 16:04 Diarrhea benztropine (From Cogentin) AdvReac Other Verified 02/04/25 16:04 esomeprazole (From Nexium) AdvReac Nausea Verified 02/04/25 16:04 oxybutynin (From Ditropan) AdvReac Nausea/Vom/ Verified 02/04/25 16:04 Diarrhea Family History no significant family his Surgical History History of esophagogastroduodenoscopy (EGD) Hx of tonsillectomy Hx of arthroscopic knee surgery Hx of colonoscopy history left ulnar nerve repair history bladder sling History of arthroscopy of left knee Surgical History no surgical history Social History Smoking Status: Light Smoker (<10/day) alcohol intake: never substance use type: does not use ROS ROS ED Constitutional Constitutional ED: Denies chills, fever(s), subjective, sweats or weight loss Eyes Eyes: Denies blurry vision, change in vision or diplopia ENT ENT ED: Denies ear pain, rhinorrhea or sore throat Cardiovascular Cardiovascular: Denies chest pain or palpitations Respiratory/Chest Respiratory/Chest: Denies cough, dyspnea or dyspnea on exertion Gastrointestinal Gastrointestinal: Denies abdominal pain, diarrhea or vomiting Musculoskeletal Musculoskeletal: Reports neck pain; Denies arthralgias, back pain or myalgias Integumentary Denies rash Neurologic Neurologic: Reports headache(s); Denies paresthesias or weakness Hematologic/Lymphatic Hematologic/Lymphatic: Reports systems reviewed and no addt'l complaints, except as documented EXAM Physical Exam Const Vital Signs: 02/04/25 16:03 02/04/25 17:12 02/04/25 19:00 Temperature 98 F Temperature Source Temporal Pulse Rate 86 83 70 Respiratory Rate 14 21 H 18 Blood Pressure 130/73 H 119/67 104/74 Blood Pressure Mean 92 84 84 Pulse Ox 98 94 97 Oxygen Delivery Method Room Air Room Air Room Air Positive well nourished and well developed Constitutional Narrative: BMI is 35.7. Vital signs are normal. General Appearance ED: well developed and NAD; Negative for cyanotic, diaphoretic or pallor HEENT Reports moist mucous membranes HEENT Narrative: Head is atraumatic normocephalic. Ears normal. TMs normal. Nares patent. Posterior pharynx is normal. Uvula is midline. No deviation tongue protrusion. There is no tenderness over the right or left temporal artery. There is no rash to suggest herpes varicella-zoster. Neck is not supple because of her chronic neck pain. There is no rash noted. Eyes PERRL and EOMs intact bilaterally General Eye ED: Negative for pale conjunctiva or scleral icterus Neck no lymphadenopathy, No supple and no JVD General: tenderness Resp normal respiratory effort and clear to auscultation bilaterally Cardio regular rate, regular rhythm, S1 normal heart sound, S2 normal heart sound and no murmurs GI normal to inspection, nondistended, normoactive bowel sounds, non-tender, non-distended and no masses; Negative for hepatosplenomegaly Palpation: soft Back/Spine no CVA tenderness Neuro oriented x3, CN's II-XII intact bilaterally and no sensory deficits noted Neuro Narrative: There is no dysmetria. Gait was observed and she entered the emergency room and is normal. Patient had no clonus Babinski sign noted. Sensorium / Orientation: alert Motor Exam: strength 5/5 throughout Skin no rashes or lesions noted, no wounds and skin turgor normal General Skin Exam: Negative for jaundice or pallor MDM MDM MDM Narrative Medical decision making narrative: Differential diagnosis is pain of unknown etiology, atypical migraine which the nurse practitioner diagnosed her with without aura or status. Temporal arteritis needs to be considered because of where she is having the pain. Since she has a normal neuroexam this has been intermittent for several weeks in my opinion an emergent MRI is not indicated. Furthermore it is Friday evening. There is no indication for emergent MRI. Lab Data Lab results narrative: CBC is remarkable for anemia with normal indices. Basic metabolic panel evidence of slight elevation of glucose of 109. ESR is normal. Labs: Laboratory Results - last 24 hr 02/04/25 17:10 WBC 6.7 RBC 4.10 L Hgb 11.7 L Hct 37.4 MCV 91.2 MCH 28.5 MCHC 31.3 L RDW Std Deviation 48.8 H RDW Coeff of Cortes 14.6 Plt Count 284 MPV 10.3 Immature Gran % (Auto) 0.300 Neut % (Auto) 39.3 L Lymph % (Auto) 49.2 H [place] % (Auto) 9.6 Eos % (Auto) 1.0 Baso % (Auto) 0.6 Absolute Neuts (auto) 2.6 Absolute Lymphs (auto) 3.28 Nucleated RBC % 0 ESR 28 Sodium 140 Potassium 3.9 Chloride 103 Carbon Dioxide 25.8 Anion Gap 10 BUN 19 Creatinine 0.85 Estim Creat Clear Calc 69.85 Est GFR (MDRD) Non-Af 75 BUN/Creatinine Ratio 21.8 H Glucose 109 H Calcium 9.4 Discharge Plan Triage Chief Complaint: Neuro S/Sx ED Provider: Suleiman Mckeon Dx/Rx/DC Orders Clinical Impression: Intermittent pain, Depression, Pain in head, Type 2 diabetes mellitus, Blurred vision, bilateral Instructions: ED Pain, Acute, Uncertain Cause Prescriptions: No Action fenofibrate 54 mg tablet 54 mg PO DAILY aripiprazole 10 MG tablet 15 mg PO DAILY rosuvastatin 40 MG tablet 40 mg PO QHS duloxetine 60 MG capsule 30 mg PO DAILY pantoprazole 40 MG tablet 40 mg PO BID lactase 3,000 UNIT tablet 3,000 unit PO TIDCM albuterol sulfate 1 INHALER inhaler 2 puff inhalation Q4H PRN PRN (Reason: Wheezing) levothyroxine 137 MCG tablet 137 mcg PO MOTUWETHFRSA levothyroxine 137 mcg tablet 68.5 mcg PO CARMEN Patient Comments: TAKE 1 TABLET BY MOUTH ONCE DAILY FRIDAY-FRIDAY AND 2 TABLETS ON FRIDAY metformin 500 mg tablet extended release 24 hr 500 mg PO DAILY Patient Comments: TAKE 1 TABLET BY MOUTH ONCE DAILY WITH BREAKFAST gabapentin 400 mg Capsule 400 mg PO QHS Patient Comments: PT REPORTS TAKING 400MG 1 TIME A DAY Rx Instructions: PT REPORTS TAKING 400 MG 1 TIME PER DAY cyanocobalamin (vitamin B-12) 1,000 mcg tablet 1,000 mcg PO DAILY Patient Comments: TAKE 1 TABLET BY MOUTH ONCE DAILY ergocalciferol (vitamin D2) 1,250 mcg (50,000 unit) capsule 1,250 mcg PO Patient Comments: TAKE 1 CAPSULE BY MOUTH ONCE A WEEK () ezetimibe 10 mg tablet 10 mg PO QHS Patient Comments: TAKE 1 TABLET BY MOUTH ONCE DAILY ropinirole 1 mg tablet 1 mg PO QHS Patient Comments: TAKE 1 TABLET BY MOUTH BEFORE BEDTIME buspirone 10 mg tablet 10 mg PO DAILY PRN (Reason: mental health) Patient Comments: TAKE 1 TABLET BY MOUTH ONCE DAILY NEEDED Trulance 3 mg tablet 3 mg PO DAILY tizanidine 4 mg tablet 4 mg PO TID PRN Patient Comments: TAKE 1 TABLET BY MOUTH UP TO THREE TIMES DAILY NEEDED FOR PAINFUL MUSCLE SPASMS Nurtec ODT 75 mg tablet,disintegrating 75 mg PO DAILY PRN Patient Comments: DISSOLVE 1 TABLET BY MOUTH ONCE DAILY NEEDED amitriptyline 25 mg tablet 25 mg PO QHS Patient Comments: TAKE 1 TABLET BY MOUTH ONCE DAILY AT BEDTIME aspirin [Adult Aspirin Regimen] 81 mg tablet,delayed release (DR/EC) 81 mg PO DAILY Ajovy Syringe 225 mg/1.5 mL syringe 225 mg subcut QMONTH oxycodone-acetaminophen 5-325 mg tablet 1 tab PO Q6H PRN PRN (Reason: Pain) 3 Days Qty: 12 0RF ondansetron 4 mg tablet,disintegrating 4 mg PO Q6H PRN PRN (Reason: Nausea) Qty: 20 0RF acetaminophen [8 Hour Pain Reliever] 650 mg tablet extended release 650 mg PO Q12H PRN (Reason: pain) Primary Care Provider: Kyle Monterroso Referrals: Kyle Monterroso MD [Primary Care Provider] - 1-2 Weeks Print Language: Arabic Disposition Disposition: Home, Self Care
[2025-02-04 17:46] LABS: Erythrocyte Sedimentation Rate 28 mm/hr (0-30)
[2025-02-04 17:56] LABS: Anion Gap 10 (5-15); BUN 19 mg/dL (4-19); BUN/Creat Ratio 21.8 RATIO (10-20); Calcium,Total 9.4 mg/dL (7.6-11.0); Carbon Dioxide 25.8 mmol/L (21.0-32.0); Chloride 103 mmol/L (98-108); Creatinine, Serum 0.85 mg/dL (0.70-1.20); EST Glomerular Filtration Rate 75 (>60); Estimated Creatinine Clearance 69.85 ml/min (50-250); Glucose 109 mg/dL (70-99); Potassium 3.9 mmol/L (3.3-5.1); Sodium Level 140 mmol/L (133-145)
[2025-02-04 19:00] VITALS: BP 104/74; PULSE 70; RESP 18; O2SAT 97
[2025-02-04 19:55] VITALS: BP 122/71; PULSE 70; RESP 18; TEMP 36.8; O2SAT 95
== END 2025-02-04 19:58 | disposition home or self-care (01) ==
PROVIDERS: Emergency Provider Emergency Medicine; PCP Family Medicine; Visit Provider Emergency Medicine
DX: R51.9 Headache, unspecified (principal); J43.9 Emphysema, unspecified; E11.9 Type 2 diabetes mellitus without complications; E78.00 Pure hypercholesterolemia, unspecified; F32.A Depression, unspecified; K21.9 Gastro-esophageal reflux disease without esophagitis; M54.2 Cervicalgia; G89.29 Other chronic pain; H53.8 Other visual disturbances
CPT/HCPCS: 80048; 85025; 85652; 99284; A4216

== ENCOUNTER 2025-04-12 14:30 | Outpatient (RCR) | payer MEDICARE, MEDICAID, SELFPAY ==
--- NOTE | 2025-04-04 11:44 | HP.PTEVAL ---
Patient's Visit Information Visit Information Visit Information: SIN MARSHALL is a 65 year old F referred to Physical Therapy by KURT Sadler with a diagnosis of DDD Lumbar Spine, Cervical Spine, Right Knee. Date of Evaluation: 04/04/25 Physical Therapist: Enma Benites DPT Visit Plan Frequency: 2x /Week Duration: 4 Weeks Plan: Aquatics- focus on scapular and core strength/stabilization and pain mgmt. Subjective Subjective: Patient reports that she has OA throughout her body and her MD wants her to do aquatic therapy. She feels that her neck and back bother her the most. She is having an ablation on Friday on her back. She had one on her neck but it didn't work. Worst pain is 8/10. Pain is aggravated by taking care of her animals- clean up after them, feed them, water them. She has not found anything that makes her feel better. She describes the pain as achy. The pain is throughout the whole body- she does not have any position she is comfortable in. She is fully indep with all ADL's- but does have an aid that comes in 3x a week to help out with the cleaning. She does not drive anymore. Sleep: back and is able to get about 6 hours at night and wears a CPAP. She feels that pain is getting worse. 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 No N/T. She is retired. She likes to take care of her animals (cats and dogs). She has not done aquatic therapy before. Goals: not to be so stiff and achy and tired PMHx/Meds: see list in chart Objective Objective: Posture: severe forward head, rounded shoulders and increased kyphosis- she is unable to correct with verbal and tactile cues Gait: quad cane, decreased ernie and slight wide base of support Stairs: asc/desc recip with 2 HR, Desc with decreased control with eccentric. Sit to Stand: uses UE A ROM: Cervical: Extn: severe pain, Flexion: WNL, SB and Rotation: limited by 50% with discomfort, UE: WNL, Lumber: Flexion: hands to knees- with pain, Extn: neutral, SB/Rot: 50% with pain, LE: WNL Strength: Scap: poor- moderate winging, Shoulder: 4+/5 throughout, Elbow: 5/5, [employer]: equal, Core:poor, Hip: 4/5 throughout, Knee: 4+/5 Ankle: 4+/5 Flex: HS: moderate, Gastroc: moderate Palpation: tender throughout cervical spine, upper trap, levator, scapular border, bicipital groove, thoracic and lumbar parapsinals. Sensation: WNL to gross touch bilateral LE Special Tests L/S Slump test left side: Negative L/S Slump test right side: Negative Balance/Special Test Scores Oswestry Low Back Score: 22 Goals Goal 1:: Patient will be I with HEP and progression Goal Time Frame: 4-6 Weeks Goal 2:: Patient will report worst pain 5/10 Goal Time Frame: 4-6 Weeks Goal 3:: Patient will report sleeping more than 6 hours a night Goal Time Frame: 4-6 Weeks Goal 4:: Patient will report 80% improvement Goal Time Frame: 4-6 Weeks Rehabilitation Potential Physical Therapy Diagnosis: Patient presents with hypomobility- she has decreased ROM, strength, flex and muscular endurance leading to increased pain and ability to perform ADL's Rehabilitation Potential: Fair Anticipated Interventions Patient/Client Instruction: Educate patient on: Benefits of Fitness Program Therapeutic Exercise to Include: Strength training, Endurance training, Balance training, Coordination, Agility training, Body mechanics, Postural training, Flexibilty training, Gait and locomotor training, Neuromotor development, In an aquatic setting, Dynamic Lumbar Stabilization and Scapular Strength/Stabilization For the Purpose of:: To improve muscle performance and motor function Thermo therapy (hot pack): Yes Text: Thank you for the opportunity to evaluate your patient. For Medicare and Medicare HMO plans, please review the plan of care and approve it. It will need to be FAXED BACK to us at [phone] for Medicare purposes. For Medicare only, by signing this I certify the plan of care. Please let me know if there are questions or concerns regarding this plan of care. Physician Signature: Date:
--- NOTE | 2025-06-22 07:06 | HP.PT.NRP ---
Patient Information Patient Information: SIN MARSHALL was seen in my office for initial evaluation on 04/04/25. The following Plan of Care was established for this patient: POC Established Initial Frequency: 2x /Week Initial Duration: 4 Weeks Anticipated Interventions Patient/Client Instruction: Educate patient on: Benefits of Fitness Program Therapeutic Exercise to Include: Strength training, Endurance training, Balance training, Coordination, Agility training, Body mechanics, Postural training, Flexibilty training, Gait and locomotor training, Neuromotor development, In an aquatic setting, Dynamic Lumbar Stabilization and Scapular Strength/Stabilization For the Purpose of:: To improve muscle performance and motor function Thermo therapy (hot pack): Yes Last Seen Last Seen: This patient was last seen in our office . Pertinent comments regarding their Physical therapy will appear below: Pt had ablasion and was too painful to continue PT- appropriate to be d/c and return to MD for further evaluation At this point I will be discontinuing this patient from physical therapy. I would be happy to see this patient again in the future if found appropriate by the physician. Thank you! DORA RiveraT Balance/Gait/Functional tests Balance/Special Test Scores Oswestry Low Back Score: 22
== END 2025-04-12 19:00 | disposition home or self-care (01) ==
LOC: PT 14:30
PROVIDERS: PCP Family Medicine
DX: M15.0 Primary generalized (osteo)arthritis (principal)
CPT/HCPCS: 97113; 97162